=== PATIENT | male | born 1960 | race African-American/Black ===

== ENCOUNTER → 2016-07-20 | Outpatient (CLI) | payer MEDICARE, MEDICAID ==
[~2016-07-20] MED LIST: ACET300T4 PO; AMLO10TA2 PO; ATOR40TA16 PO; B-CO1CAP9 PO; BACL10TA PO; CHOL400D2 PO; FLUT50SP EACH NARE; HUMA100I3 SQ; HUMALOG SQ; HYDR-3801 PO; HYDR25TA35 PO; INSU-98; LANTUS2P SQ; LEVO25TA4 PO; LISI-515 PO; LISI20TA3 PO; MAGN500T5 PO; METO100T9 PO; MYCO500T PO; PANT20 PO; PRED-503 PO; PROT40TA PO; SODI650T PO; TACR1 PO; TACR5CAP PO; TRAM50TA PO; TYLETAB34 PO; VALG1TAB PO; ZOFR4TAB PO
[2016-07-20 08:24] LABS: AUTOMATED NEUTROPHIL # 6.3 TH/MM3 (1.8-7.7); BASOPHIL # 0.1 TH/MM3 (0-0.2); EOSINOPHIL # 0.1 TH/MM3 (0-0.4); EOSINOPHIL % 1.2 % (0.0-4.0); HEMATOCRIT 37.4 % (39.0-51.0); LYMPH % 15.6 % (9.0-44.0); LYMPHOCYTE # 1.4 TH/MM3 (1.0-4.8); MEAN CELL VOLUME 77.7 FL (80.0-100.0); MEAN CORPUSCULAR HEMOGLOBIN 24.8 PG (27.0-34.0); MONO % 10.9 % (0.0-8.0); NEUT % 71.3 % (16.0-70.0); PLATELET COUNT 184 TH/MM3 (150-450); RED BLOOD COUNT 4.81 MIL/MM3 (4.50-5.90); RED CELL DISTRIBUTION WIDTH 16.5 % (11.6-17.2); WHITE BLOOD COUNT 8.8 TH/MM3 (4.0-11.0)
[2016-07-20 08:28] LABS: HEMO FLAGS AUTO DIFF
[2016-07-20 09:00] LABS: PARATHYROID HORMONE INTACT 402.8 PG/ML (12.4-76.8)
[2016-07-20 09:06] LABS: ALKALINE PHOSPHATASE 120 U/L (45-117); ALT (GPT) 18 U/L (12-78); ANION GAP 10 MEQ/L (5-15); AST (GOT) 15 U/L (15-37); BICARBONATE 20.2 MEQ/L (21.0-32.0); BLOOD UREA NITROGEN 42 MG/DL (7-18); CHLORIDE 109 MEQ/L (98-107); GLOMERULAR FILTRATION RATE 31 ML/MIN (>89); GLUCOSE,FASTING 278 MG/DL (74-99); MAGNESIUM 1.8 MG/DL (1.5-2.5); POTASSIUM 4.3 MEQ/L (3.5-5.1); SODIUM (NA) 139 MEQ/L (136-145); TOTAL BILIRUBIN ADULT 0.4 MG/DL (0.2-1.0)
[2016-07-20 09:40] LABS: KERATOCYTES OCC (NORMAL)
[2016-07-20 09:41] LABS: SCAN/DIFF AUTO DIFF CONFIRMED
== END ==
LOC: CLAB 08:05
PROVIDERS: ATTEND Internal Medicine Nephrology
DX: E11.29 Type 2 diabetes mellitus with other diabetic kidney complication (principal); I12.9 Hypertensive chronic kidney disease with stage 1 through stage 4 chronic kidney disease, or unspecified chronic kidney disease; N25.81 Secondary hyperparathyroidism of renal origin; Z94.0 Kidney transplant status
CPT/HCPCS: 36415; 80053; 80197; 82306; 82465; 83735; 83970; 84478; 85025

== ENCOUNTER 2016-07-24 08:04 | Emergency (ER) | payer MEDICARE, MEDICAID ==
[~2016-07-24] VITALS: Ht 180.3 cm; Wt 76.0 kg
[~2016-07-24 08:04] MED LIST changes: -ACET300T4 PO; -BACL10TA PO; -CHOL400D2 PO; -FLUT50SP EACH NARE; -HYDR-3801 PO; -INSU-98; -LISI-515 PO; -LISI20TA3 PO; -PANT20 PO; -TACR5CAP PO; -TYLETAB34 PO
[2016-07-24 08:15] VITALS: BP 191/105; PULSE 66; RESP 20; TEMP 98; O2SAT 97
[2016-07-24] MEDS ORDERED: SODIUM CHLORIDE 0.9% FLUSH 5 ML FLUSH IVF PRN (08:30)
[2016-07-24] MEDS ORDERED: MORPHINE SULFATE 4 MG/ML INJ IV PUSH ONE (08:30)
[2016-07-24] MEDS ORDERED: DIATRIZOATE MEGLUM/DIATRIZOATE SOD 9 ML CUP ONE (08:34)
[2016-07-24 08:43] LABS: AUTOMATED NEUTROPHIL # 6.1 TH/MM3 (1.8-7.7); BASOPHIL # 0.1 TH/MM3 (0-0.2); BASOPHIL % 0.6 % (0.0-2.0); EOSINOPHIL # 0.1 TH/MM3 (0-0.4); EOSINOPHIL % 1.2 % (0.0-4.0); HEMATOCRIT 37.3 % (39.0-51.0); HEMO FLAGS DIFF FINAL; LYMPHOCYTE # 1.2 TH/MM3 (1.0-4.8); MEAN CELL VOLUME 77.5 FL (80.0-100.0); MEAN CORPUSCULAR HEMOGLOBIN 25.2 PG (27.0-34.0); MEAN CORPUSCULAR HGB CONC 32.5 % (32.0-36.0); MONO % 10.5 % (0.0-8.0); NEUT % 73.7 % (16.0-70.0); PLATELET COUNT 167 TH/MM3 (150-450); RED BLOOD COUNT 4.82 MIL/MM3 (4.50-5.90); RED CELL DISTRIBUTION WIDTH 16.2 % (11.6-17.2); WHITE BLOOD COUNT 8.3 TH/MM3 (4.0-11.0)
--- NOTE | 2016-07-24 08:43 | PD ---
HPI Chief Complaint: Abdominal Pain Time Seen by Provider: 08:12 Travel History International Travel<30 days: No Contact w/Intl Traveler<30days: No Traveled to known affect area: No History of Present Illness HPI 55-year-old male with history of renal failure status post transplant here with complaint of abdominal pain. Patient woke up this morning with pain in the right lower quadrant of the abdomen, points to his transplanted kidney. Patient states he has mild to moderate, achy, throbbing pain. Denies any associated fevers chills. He has been compliant with his antirejection medications which have not changed recently. 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 No associated nausea, vomiting. Denies abnormal bowel movements or urinary symptoms. PFSH Past Medical History Hx Anticoagulant Therapy: No Asthma: No Blood Disorders: No Anxiety: No Depression: No Heart Rhythm Problems: No Cancer: No Cardiac Catheterization: No Cardiovascular Problems: Yes High Cholesterol: Yes Chemotherapy: No Chest Pain: No Congestive Heart Failure: Yes COPD: No Cerebrovascular Accident: No Diabetes: Yes Patient Takes Glucophage: No Diminished Hearing: No Endocrine: No Genitourinary: No Hypertension: Yes Immune Disorder: No Musculoskeletal: No Neurologic: No Psychiatric: No Reproductive: No Respiratory: Yes Immunizations Current: No Radiation Therapy: No Renal Failure: Yes (KIDNEY TRANSPLANT) Sleep Apnea: No Past Surgical History Abdominal Surgery: Yes (ABD AND INGUINAL HERNIA REPAIR) Coronary Artery Bypass Graft: No Other Surgery: Yes (FISTULA LEFT UPPER ARM, kidney transplant ) Family History Family Myocardial Infarction: Yes (dad [place] 1994) Social History Alcohol Use: No Tobacco Use: No Substance Use: No Allergies-Medications (Allergen,Severity, Reaction): Coded Allergies: Banana (Verified Allergy, Severe, HIVES, 07/24/16) Beet (Verified Allergy, Severe, HIVES, 07/24/16) Pea (Verified Allergy, Severe, HIVES, 07/24/16) Latex (Verified Allergy, Unknown, 07/24/16) Uncoded Allergies: FRESH TOMATO (Allergy, Severe, 05/17/15) HIVES Reported Meds & Prescriptions Reported Meds & Active Scripts Active Zofran (Ondansetron HCl) 4 Mg Tab 4 Mg PO Q12HR PRN Protonix (Pantoprazole Sodium) 40 Mg Tab 40 Mg PO DAILY It is recommended that you do not take this medication for more than 2 weeks at a time. Metoprolol Succinate ER 24 HR (Metoprolol Succinate) 100 Mg Tab 100 Mg PO DAILY Levothyroxine (Levothyroxine Sodium) 25 Mcg Tab 25 Mcg PO DAILY Hydralazine (Hydralazine HCl) 25 Mg Tab 25 Mg PO TID Take with a meal Amlodipine (Amlodipine Besylate) 10 Mg Tab 10 Mg PO DAILY Atorvastatin (Atorvastatin Calcium) 40 Mg Tab 40 Mg PO EVERY OTHER DAY please check with your payroll technician about checking immunosuppresant levels when you go up to 40 mg daily. Tramadol (Tramadol HCl) 50 Mg Tab 50 Mg PO BID PRN Reported Lantus Inj (Insulin Glargine) 1,000 Unit/10 Ml Vial 26 Units SQ ONCE Magnesium Gluconate 500 Mg Tab 500 Mg PO DAILY Valganciclovir 450 Mg Tab 450 Mg PO DAILY Sodium Bicarbonate 650 Mg Tab 1,300 Mg PO BIDPC Prograf (Tacrolimus) 1 Mg Cap 1 Mg PO BID Mycophenolate (Mycophenolate Mofetil) 500 Mg Tab 500 Mg PO BID Deltasone (Prednisone) 20 Mg Tab 10 Mg PO DAILY Nephrocaps (B-Complex W/ C & Folic Acid) 1 Cap 1 Cap PO DAILY If on dialysis, take after treatment. Humalog Inj (Insulin Human Lispro) 1,000 Unit/10 Ml Vial Unknown Dose SQ TID Max dose at bedtime:( )units; sugars < 70,(0)units; sugars 150-199,(2)units; sugars 200-249,(4)units; sugars 250-299,(7)units; sugars 300-349,(10)units; sugars more than 349,(12)units. Review of Systems Except as stated in HPI: all other systems reviewed are Neg Physical Exam Narrative GENERAL: male in no acute distress SKIN: Warm and dry. HEAD: Normocephalic. EYES: No scleral icterus. No injection or drainage. ENT: Mucous membranes pink and moist. NECK: Supple CARDIOVASCULAR: Regular rate and rhythm. No murmur appreciated. RESPIRATORY: No accessory muscle use. Clear to auscultation. Breath sounds equal bilaterally. GASTROINTESTINAL: Abdomen soft, mild right lower quadrant tenderness to palpation over renal transplant without rebound or guarding. Nondistended. MUSCULOSKELETAL: Normal gait NEUROLOGICAL: Awake and alert. Normal speech. PSYCHIATRIC: Appropriate mood and affect; insight and judgment normal. Data Data Last Documented VS Vital Signs Date Time Temp Pulse Resp B/P Pulse Ox O2 Delivery O2 Flow Rate FiO2 07/24/16 12:30 60 18 172/100 97 Room Air 07/24/16 08:15 98.0 Orders Complete Blood Count With Diff (07/24/16 08:20) Comprehensive Metabolic Panel (07/24/16 08:20) Lipase (07/24/16 08:20) Urinalysis - C+S If Indicated (07/24/16 08:20) Iv Access Insert/Monitor (07/24/16 08:20) Ecg Monitoring (07/24/16 08:20) Oximetry (07/24/16 08:20) Morphine Inj (Morphine Inj) (07/24/16 08:30) Sodium Chloride 0.9% Flush (Ns Flush) (07/24/16 08:30) Oral Contrast - Adult (07/24/16 08:25) Diatrizoate Liq ( Gastroview Liq) (07/24/16 08:34) Ct Abd/Pel W/O Iv Contrast (07/24/16 09:09) Us Kidney / Transplant (07/24/16 ) Labs Laboratory Tests Test 07/24/16 08:30 White Blood Count 8.3 TH/MM3 Red Blood Count 4.82 MIL/MM3 Hemoglobin 12.1 GM/DL Hematocrit 37.3 % Mean Corpuscular Volume 77.5 FL Mean Corpuscular Hemoglobin 25.2 PG Mean Corpuscular Hemoglobin 32.5 % Concent Red Cell Distribution Width 16.2 % Platelet Count 167 TH/MM3 Mean Platelet Volume 8.7 FL Neutrophils (%) (Auto) 73.7 % Lymphocytes (%) (Auto) 14.0 % Monocytes (%) (Auto) 10.5 % Eosinophils (%) (Auto) 1.2 % Basophils (%) (Auto) 0.6 % Neutrophils # (Auto) 6.1 TH/MM3 Lymphocytes # (Auto) 1.2 TH/MM3 Monocytes # (Auto) 0.9 TH/MM3 Eosinophils # (Auto) 0.1 TH/MM3 Basophils # (Auto) 0.1 TH/MM3 CBC Comment DIFF FINAL Differential Comment Urine Color LIGHT-YELLOW Urine Turbidity CLEAR Urine pH 6.0 Urine Specific [place] 1.012 Urine Protein 300 mg/dL Urine Glucose (UA) TRACE mg/dL Urine Ketones NEG mg/dL Urine Occult Blood TRACE Urine Nitrite NEG Urine Bilirubin NEG Urine Urobilinogen LESS THAN 2.0 MG/DL Urine Leukocyte Esterase NEG Urine RBC 2 /hpf Urine WBC LESS THAN 1 /hpf Microscopic Urinalysis Comment CULT NOT INDICATED Sodium Level 138 MEQ/L Potassium Level 4.2 MEQ/L Chloride Level 111 MEQ/L Carbon Dioxide Level 18.8 MEQ/L Anion Gap 8 MEQ/L Blood Urea Nitrogen 33 MG/DL Creatinine 2.26 MG/DL Estimat Glomerular Filtration 37 ML/MIN Rate Random Glucose 201 MG/DL Calcium Level 7.6 MG/DL Total Bilirubin 0.3 MG/DL Aspartate Amino Transf 13 U/L (AST/SGOT) Alanine Aminotransferase 16 U/L (ALT/SGPT) Alkaline Phosphatase 113 U/L Total Protein 6.2 GM/DL Albumin 2.8 GM/DL Lipase 93 U/L [facility] Medical Decision Making Medical Screen Exam Complete: Yes Emergency Medical Condition: Yes Medical Record Reviewed: Yes Differential Diagnosis 55-year-old male status post renal transplant here with right lower quadrant abdominal pain upon waking this morning. Differential includes appendicitis, colitis, graft failure, acute rejection, mesenteric adenitis, and less likely hepatobiliary pathology, bowel obstruction. Narrative Course Patient placed on monitor, IV established and blood obtained. Given morphine for pain. CBC, CMP, lipase, urinalysis obtained and notable for BUN 33, creatinine 2.26. This is his baseline renal function. CT abdomen and pelvis showed [place] kidneys atrophic with transplant kidney in the right lower quadrant. Ultrasound recommended to exclude possibility of hydronephrosis. Ultrasound of the kidney showed mild hydronephrosis. I spoke with his payroll technician, Dr. Pereira, who agrees with disposition to home. Maintain good hydration and follow-up with him in clinic. Diagnosis Primary Impression: Abdominal pain Qualified Code: R10.31 - Right lower quadrant abdominal pain Referrals: Health Care Consultant as needed Additional Instructions: Follow-up with Dr. Pereira as instructed. Return to the ER for the warning signs discussed. Med/Other Pt SpecificInfo: No Change to Meds Disposition: 01 DISCHARGE HOME Condition: Stable Cecile Bernstein MD Jul 24, 2016 08:43
[2016-07-24 08:45] LABS: BLOOD, URINE TRACE (NEG); COMMENT (UR) CULT NOT INDICATED; CULTURE IF INDICATED CULT NOT INDICATED; GLUCOSE,URINE TRACE mg/dL (NEG); KETONE, URINE NEG (NEG); NITRITE,URINE NEG (NEG); URINE COLOR LIGHT-YELLOW (YELLW/STRAW)
[2016-07-24 09:03] LABS: ANION GAP 8 MEQ/L (5-15); BICARBONATE 18.8 MEQ/L (21.0-32.0); BLOOD UREA NITROGEN 33 MG/DL (7-18); CHLORIDE 111 MEQ/L (98-107); GLOMERULAR FILTRATION RATE 37 ML/MIN (>89); POTASSIUM 4.2 MEQ/L (3.5-5.1); SODIUM (NA) 138 MEQ/L (136-145)
[2016-07-24 09:06] LABS: ALKALINE PHOSPHATASE 113 U/L (45-117); ALT (GPT) 16 U/L (12-78); AST (GOT) 13 U/L (15-37); TOTAL BILIRUBIN ADULT 0.3 MG/DL (0.2-1.0)
--- NOTE | 2016-07-24 10:20 | RADRPT ---
EXAM DATE/TIME: 07/24/2016 09:59 [facility] COMPARISON: No previous studies available for comparison. INDICATIONS : Pain. ORAL CONTRAST: Prescribed oral contrast ingested. RADIATION DOSE: 6.32 CTDIvol (mGy) MEDICAL HISTORY : Hypertension. Congestive heart failure. Diabetes mellitus type 2. SURGICAL HISTORY : Kidney transplant ENCOUNTER: Initial ACUITY: 1 day PAIN SCALE: 5/10 LOCATION: Right lower quadrant TECHNIQUE: Volumetric scanning of the abdomen and pelvis was performed. Using automated exposure control and adjustment of the mA and/or kV according to patient size, radiation dose was kept as low as reasonably achievable to obtain optimal diagnostic quality images. FINDINGS: LOWER LUNGS: The visualized lower lungs are clear. LIVER: Homogeneous density without lesion. There is no dilation of the biliary tree. No calcifi ed gallstones. Gallbladder cys luminal structure without wall thickening SPLEEN: Normal size without lesion. PANCREAS: Within normal limits. KIDNEYS: Bilateral [place] kidneys are atrophic. There is a transplant kidney in the right pelvis without evidence of stones or mass possibility of hydronephrosis not excludable. Ultrasound may be of value ADRENAL GLANDS: Within normal limits. VASCULAR: There is no aortic aneurysm. BOWEL/MESENTERY: The stomach, small bowel, and colon demonstrate no acute abnormality. There is no free intraperitoneal air or fluid. ABDOMINAL WALL: Within normal limits. RETROPERITONEUM: There is no lymphadenopathy. BLADDER: No wall thickening or mass. REPRODUCTIVE: Within normal limits. INGUINAL: There is no lymphadenopathy or hernia. MUSCULOSKELETAL: Within normal limits for patient age. CONCLUSION: The [place] kidneys are atrophic with a transplant kidney in the right lower quadrant, pelvis. Ultrasound recommended to exclude the possibility of hydronephrosis Ever Evans MD on July 24, 2016 at 10:14 Board Certified Radiologist. This report was verified electronically.
[2016-07-24 10:30] VITALS: BP 171/94; PULSE 63; RESP 17; O2SAT 96
--- NOTE | 2016-07-24 12:29 | RADRPT ---
EXAM DATE/TIME: 07/24/2016 11:24 [facility] COMPARISON: US KIDNEY / TRANSPLANT, March 18, 2016, 16:09. INDICATIONS : Flank pain. MEDICAL HISTORY : Hypercholesterolemia. Hypertension. Congestive heart failure. Renal failure. SURGICAL HISTORY : Inguinal hernia repair. Transplant kidney. AV fistula left arm. ENCOUNTER: Subsequent ACUITY: 1 day PAIN SCORE: 5/10 LOCATION: Right lower quadrant MEASUREMENTS: TRANSPLANT KIDNEY: 12.0 x 6.0 x 6.0 cm LOCATION: Right lower quadrant. ARCUATE ARTERIES RESISTIVE INDEX: Upper - 0.82 Mid - 0.77 Lower - 0.78 MAIN RENAL ARTERY VELOCITY: (cm/sec): 57.2 cm/sec MAIN RENAL VEIN: Patent EXTERNAL ILIAC ARTERY VELOCITY (cm/sec): 67.6 cm/sec * NORMAL DOPPLER FINDINGS [place] arteries - RI = 0.6 - 0.8 Renal artery = under 200 cm/sec Renal vein = May be monophasic with continuous flow or demonstrate some pulsatility with cardiac cycl e FINDINGS: TRANSPLANT KIDNEY: Normal cortical thickness and echotexture. No, stone, or mass. No peritransplant fluid collection. Mild hydronephrosis URINARY BLADDER: Within normal limits given the degree of distension. CONCLUSION: Mild hydronephrosis otherwise negative Ever Evans MD on July 24, 2016 at 12:26 Board Certified Radiologist. This report was verified electronically.
[2016-07-24 12:30] VITALS: BP 172/100; PULSE 60; RESP 18; O2SAT 97
[2016-07-24 13:05] VITALS: BP 176/100
[2016-09-02] MEDS ORDERED: HUMALOG SQ (09:17)
[2016-09-02] MEDS ORDERED: ATOR40TA16 PO (09:17)
[2016-09-02] MEDS ORDERED: LANTUS2P SQ (09:17)
[2016-09-02] MEDS ORDERED: METO100T9 PO (09:17)
[2016-09-02] MEDS ORDERED: PROT40TA PO (09:17)
[2016-09-02] MEDS ORDERED: HYDR25TA35 PO (09:17)
[2016-09-02] MEDS ORDERED: AMLO10TA2 PO (09:17)
[2016-09-02] MEDS ORDERED: LEVO25TA4 PO (09:17)
[2016-09-02] MEDS ORDERED: ZOFR4TAB PO (09:18)
[2016-11-10] MEDS ORDERED: HUMALOG SQ (11:03)
[2016-11-10] MEDS ORDERED: INSU-98 (11:14)
[2016-11-19] MEDS ORDERED: LANTUS2P SQ (09:03)
[2016-11-19] MEDS ORDERED: METO100T9 PO (09:03)
[2016-11-19] MEDS ORDERED: ATOR40TA16 PO (09:03)
[2016-11-19] MEDS ORDERED: LEVO25TA4 PO (09:03)
[2016-11-19] MEDS ORDERED: PANT20 PO (09:03)
[2016-11-19] MEDS ORDERED: LISI20TA3 PO (09:03)
[2016-11-19] MEDS ORDERED: AMLO10TA2 PO (09:03)
[2016-11-19] MEDS ORDERED: HYDR-3801 PO (09:03)
== END 2016-07-24 14:13 | disposition home or self-care (01) ==
LOC: NEPE 08:04
DX: R10.31 Right lower quadrant pain (principal); I50.9 Heart failure, unspecified; E11.9 Type 2 diabetes mellitus without complications; I10 Essential (primary) hypertension; Z79.4 Long term (current) use of insulin; Z94.0 Kidney transplant status
CPT/HCPCS: 74176; 76776; 80053; 81001; 83690; 85025; 99284; Q9963

== ENCOUNTER → 2016-08-11 | Outpatient (CLI) | payer MEDICARE, MEDICAID ==
[~2016-08-11] MED LIST changes: +ACET300T4 PO; +BACL10TA PO; +CHOL400D2 PO; +FLUT50SP EACH NARE; -HUMA100I3 SQ; +HYDR-3801 PO; +INSU-98; +LISI-515 PO; +LISI20TA3 PO; +PANT20 PO; +TACR5CAP PO; +TYLETAB34 PO
[2016-08-11 08:37] LABS: AUTOMATED NEUTROPHIL # 4.4 TH/MM3 (1.8-7.7); BASOPHIL # 0.1 TH/MM3 (0-0.2); BASOPHIL % 1.3 % (0.0-2.0); EOSINOPHIL # 0.1 TH/MM3 (0-0.4); EOSINOPHIL % 1.7 % (0.0-4.0); HEMATOCRIT 37.6 % (39.0-51.0); HEMO FLAGS DIFF FINAL; LYMPH % 16.6 % (9.0-44.0); LYMPHOCYTE # 1.1 TH/MM3 (1.0-4.8); MEAN CELL VOLUME 77.3 FL (80.0-100.0); MEAN CORPUSCULAR HEMOGLOBIN 25.5 PG (27.0-34.0); MEAN CORPUSCULAR HGB CONC 32.9 % (32.0-36.0); MONO % 11.7 % (0.0-8.0); NEUT % 68.7 % (16.0-70.0); PLATELET COUNT 190 TH/MM3 (150-450); RED BLOOD COUNT 4.87 MIL/MM3 (4.50-5.90); RED CELL DISTRIBUTION WIDTH 16.8 % (11.6-17.2); WHITE BLOOD COUNT 6.4 TH/MM3 (4.0-11.0)
[2016-08-11 08:45] LABS: APTT (PATIENT) 29.2 SEC (24.3-30.1); PROTHROMBIN TIME - PATIENT 10.9 SEC (9.8-11.6)
[2016-08-11 09:07] LABS: PARATHYROID HORMONE INTACT 390.3 PG/ML (12.4-76.8)
[2016-08-11 09:10] LABS: ALKALINE PHOSPHATASE 112 U/L (45-117); ALT (GPT) 21 U/L (12-78); ANION GAP 9 MEQ/L (5-15); AST (GOT) 15 U/L (15-37); BICARBONATE 19.3 MEQ/L (21.0-32.0); BLOOD UREA NITROGEN 39 MG/DL (7-18); CHLORIDE 114 MEQ/L (98-107); GLOMERULAR FILTRATION RATE 36 ML/MIN (>89); GLUCOSE,FASTING 175 MG/DL (74-99); HDL CHOLESTEROL 89.9 MG/DL (40.0-60.0); LDL CHOLESTEROL 114 MG/DL (0-99); MAGNESIUM 1.6 MG/DL (1.5-2.5); POTASSIUM 4.8 MEQ/L (3.5-5.1); SODIUM (NA) 142 MEQ/L (136-145); TOTAL BILIRUBIN ADULT 0.3 MG/DL (0.2-1.0)
[2016-08-11 15:53] LABS: HEMOGLOBIN A1a 1.1 %; HEMOGLOBIN A1b 0.6 %; HEMOGLOBIN Ao 55.7 %; HEMOGLOBIN F 1.6 %; HEMOGLOBIN LA1C 1.8 %; HEMOGLOBIN P3 5.2 %
== END ==
LOC: CLAB 08:08
PROVIDERS: ATTEND Internal Medicine Nephrology
DX: I12.9 Hypertensive chronic kidney disease with stage 1 through stage 4 chronic kidney disease, or unspecified chronic kidney disease (principal); N18.3 Chronic kidney disease, stage 3 (moderate); Z94.0 Kidney transplant status; E11.29 Type 2 diabetes mellitus with other diabetic kidney complication
CPT/HCPCS: 36415; 80053; 80061; 80197; 82306; 83036; 83735; 83970; 85025; 85610; 85730

== ENCOUNTER 2016-08-13 15:05 | Emergency (ER) | payer MEDICARE, MEDICAID ==
[~2016-08-13] VITALS: Ht 180.3 cm; Wt 80.0 kg
[~2016-08-13 15:05] MED LIST changes: -ACET300T4 PO; -BACL10TA PO; -CHOL400D2 PO; -FLUT50SP EACH NARE; -HYDR-3801 PO; -INSU-98; -LISI-515 PO; -LISI20TA3 PO; -PANT20 PO; -TACR5CAP PO; -TYLETAB34 PO
[2016-08-13 15:07] VITALS: BP 156/91; PULSE 80; RESP 14; TEMP 98.1; O2SAT 93
[2016-08-13] MEDS ORDERED: TYLETAB34 PO (15:56)
[2016-08-13] MEDS ORDERED: BACL10TA PO (15:56)
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
[2016-09-02] MEDS ORDERED: PROT40TA PO (09:17)
[2016-09-02] MEDS ORDERED: ATOR40TA16 PO (09:17)
[2016-09-02] MEDS ORDERED: HUMALOG SQ (09:17)
[2016-09-02] MEDS ORDERED: HYDR25TA35 PO (09:17)
[2016-09-02] MEDS ORDERED: AMLO10TA2 PO (09:17)
[2016-09-02] MEDS ORDERED: METO100T9 PO (09:17)
[2016-09-02] MEDS ORDERED: LANTUS2P SQ (09:17)
[2016-09-02] MEDS ORDERED: LEVO25TA4 PO (09:17)
[2016-09-02] MEDS ORDERED: ZOFR4TAB PO (09:18)
[2016-11-10] MEDS ORDERED: HUMALOG SQ (11:03)
[2016-11-10] MEDS ORDERED: INSU-98 (11:14)
[2016-11-19] MEDS ORDERED: AMLO10TA2 PO (09:03)
[2016-11-19] MEDS ORDERED: LEVO25TA4 PO (09:03)
[2016-11-19] MEDS ORDERED: ATOR40TA16 PO (09:03)
[2016-11-19] MEDS ORDERED: LISI20TA3 PO (09:03)
[2016-11-19] MEDS ORDERED: METO100T9 PO (09:03)
[2016-11-19] MEDS ORDERED: PANT20 PO (09:03)
[2016-11-19] MEDS ORDERED: HYDR-3801 PO (09:03)
[2016-11-19] MEDS ORDERED: LANTUS2P SQ (09:03)
[2016-12-24] MEDS ORDERED: INSU-98 (13:55)
[2016-12-24] MEDS ORDERED: LANTUS2P SQ (15:56)
== END 2016-08-13 16:20 | disposition home or self-care (01) ==
LOC: NEPB 15:05
DX: M54.17 Radiculopathy, lumbosacral region (principal)
CPT/HCPCS: 99283

== ENCOUNTER → 2016-08-18 | Outpatient (CLI) | payer MEDICARE, MEDICAID ==
[~2016-08-18] MED LIST changes: +ACET300T4 PO; +BACL10TA PO; +CHOL400D2 PO; +FLUT50SP EACH NARE; +HYDR-3801 PO; +INSU-98; +LISI-515 PO; +LISI20TA3 PO; +PANT20 PO; +TACR5CAP PO; +TYLETAB34 PO
[2016-08-18 09:12] LABS: URINE TOTAL PROTEIN TIMED 210.4 MG/DL
== END ==
LOC: CLAB 08:10
PROVIDERS: ATTEND Internal Medicine Nephrology
DX: I12.9 Hypertensive chronic kidney disease with stage 1 through stage 4 chronic kidney disease, or unspecified chronic kidney disease (principal); N18.3 Chronic kidney disease, stage 3 (moderate); E11.22 Type 2 diabetes mellitus with diabetic chronic kidney disease; Z94.0 Kidney transplant status
CPT/HCPCS: 84157

== ENCOUNTER → 2016-09-21 | Outpatient (CLI) | payer MEDICARE, MEDICAID ==
[2016-09-21 09:03] LABS: AUTOMATED NEUTROPHIL # 4.6 TH/MM3 (1.8-7.7); BASOPHIL # 0.1 TH/MM3 (0-0.2); BASOPHIL % 0.9 % (0.0-2.0); EOSINOPHIL # 0.1 TH/MM3 (0-0.4); EOSINOPHIL % 1.3 % (0.0-4.0); HEMATOCRIT 36.7 % (39.0-51.0); LYMPH % 19.4 % (9.0-44.0); LYMPHOCYTE # 1.4 TH/MM3 (1.0-4.8); MEAN CELL VOLUME 77.5 FL (80.0-100.0); MEAN CORPUSCULAR HEMOGLOBIN 23.9 PG (27.0-34.0); MEAN CORPUSCULAR HGB CONC 30.8 % (32.0-36.0); MONO % 13.7 % (0.0-8.0); NEUT % 64.7 % (16.0-70.0); PLATELET COUNT 177 TH/MM3 (150-450); RED BLOOD COUNT 4.74 MIL/MM3 (4.50-5.90); RED CELL DISTRIBUTION WIDTH 16.1 % (11.6-17.2); WHITE BLOOD COUNT 7.1 TH/MM3 (4.0-11.0)
[2016-09-21 09:06] LABS: HEMO FLAGS AUTO DIFF
[2016-09-21 09:09] LABS: APTT (PATIENT) 30.4 SEC (24.3-30.1); PROTHROMBIN TIME - PATIENT 11.1 SEC (9.8-11.6)
[2016-09-21 09:23] LABS: BICARBONATE 22.8 MEQ/L (21.0-32.0); POTASSIUM 5.1 MEQ/L (3.5-5.1)
[2016-09-21 09:48] LABS: KERATOCYTES OCC (NORMAL); OVALOCYTES 1+ (NORMAL)
[2016-09-21 09:49] LABS: HELMET CELLS OCC (NORMAL); PLATELET ESTIMATE SMEAR NORMAL (NORMAL); PLATELET MORPHOLOGY NORMAL (NORMAL); SCAN/DIFF AUTO DIFF CONFIRMED
== END ==
LOC: CLAB 08:15
PROVIDERS: ATTEND Internal Medicine Nephrology
DX: N17.0 Acute kidney failure with tubular necrosis (principal); Z94.0 Kidney transplant status
CPT/HCPCS: 36415; 80048; 85025; 85610; 85730

== ENCOUNTER 2016-09-23 06:41 | Day surgery (SDC) | payer MEDICARE, MEDICAID ==
[~2016-09-23] VITALS: Ht 181.6 cm; Wt 75.9 kg
[2016-09-23] VITALS (9 sets, daily range): BP systolic 136–165; BP diastolic 70–99; PULSE 63–69; RESP 17–20; TEMP 97.5–98.2; O2SAT 95–98
[~2016-09-23 06:41] MED LIST changes: -ACET300T4 PO; -CHOL400D2 PO; -FLUT50SP EACH NARE; -HYDR-3801 PO; -INSU-98; -LISI-515 PO; -LISI20TA3 PO; -PANT20 PO; -TACR5CAP PO
[2016-09-23] MEDS ORDERED: LISI-515 PO (07:38)
[2016-09-23] MEDS ORDERED: CHOL400D2 PO (07:39)
[2016-09-23] MEDS ORDERED: FLUT50SP EACH NARE (07:44)
[2016-09-23] MEDS ORDERED: LIDOCAINE 1%/EPINEPHrine 1:100,000 SOLN 20 ML VIAL ONE (07:51)
[2016-09-23] MEDS ORDERED: fentaNYL CITRATE 250 MCG/5 ML AMP ONE (08:29)
[2016-09-23] MEDS ORDERED: MIDAZOLAM HCL 5 MG/5 ML VIAL ONE (08:29)
[2016-09-23] MEDS ORDERED: THROMBIN (TOPICAL) 5,000 UNIT VIAL ONE (08:48)
[2016-09-23] MEDS ORDERED: SODIUM CHLOR 0.9% 1000 ML IV SCH (09:00)
[2016-09-23] MEDS ORDERED: ONDANSETRON HCL 4 MG/2 ML VIAL ONE (09:15)
--- NOTE | 2016-09-23 09:42 | PD.RAD ---
Post CT Procedure Prog Note Pre Procedure Diagnosis: (1) CKD (chronic kidney disease) stage 3, GFR 30-59 ml/min Post Procedure Diagnosis: (1) CKD (chronic kidney disease) stage 3, GFR 30-59 ml/min Procedure Date: Sep 23, 2016 Supervising Radiologist: Rikki Hernandez Proceduralist/Assist: RT Virgilio(R)(CT) Anesthesia: Conscious Sedation Plan of Activity Patient to Unit: ROPU Patient Condition: Good See PACS Report for procedural detail/treatment Biopsy Side: Right Biopsy Procedure: Kidney Specimen: Core Biopsy Rikki Hernandez MD Sep 23, 2016 09:41
--- NOTE | 2016-09-23 10:40 | RADRPT ---
EXAM DATE/TIME: 09/23/2016 08:38 [facility] COMPARISON: No previous studies available for comparison. INDICATIONS : Right renal transplant failure SEDATION TIME: 30 minutes BIOPSY SITE: Right transplant kidney MEDICATION(S): 1.) 2.5 mg midazolam (Versed) IV 2.) 125 mcg fentanyl (Sublimaze) IV DEVICE(S): 1.) 15 gauge introducer 2.) 18 gauge Temno core biopsy needle MEDICAL HISTORY : Hypertension. Diabetes mellitus type 1. SURGICAL HISTORY : renal transplant ENCOUNTER: Initial ACUITY: 1 day PAIN SCORE: 0/10 LOCATION: Right lower quadrant A total of three core specimen(s) were obtained and sent to the laboratory for pathologic evaluation. PROCEDURE: 1. CT guided renal biopsy. 2. Conscious sedation with continuous EKG and oximetry monitoring. 3. EKG and oximetry remained stable throughout the procedure. Prior to the procedure informed consent was obtained. Any appropriate prior imaging studies were rev iewed. Using automated exposure control and adjustment of the mA and/or kV according to patient size, radiat ion dose was kept as low as reasonably achievable to obtain optimal diagnostic quality images. The site was prepped in a sterile fashion. Full sterile technique was used, including cap, mask, thuy rile gloves and gown and a large sterile sheet. Hand hygiene and 2% chlorhexidine and/or betadine/al cohol prep was utilized per protocol for cutaneous antisepsis. The skin and subcutaneous tissues wer e infiltrated with local anesthetic solution. With CT guidance the previously identified target was localized. Biopsy was performed using the presc ribed needle as above. Adequate hemostasis was obtained with compression at the puncture site. Follow-up CT scan reveals no hemorrhage. The patient tolerated the procedure well and there were no complications. The patient was returned to the Radiology Outpatient Unit in stable condition. CONCLUSION: Uncomplicated CT guided biopsy. Rikki Hernandez MD on September 23, 2016 at 10:38 Board Certified Radiologist. This report was verified electronically.
[2016-09-23] MEDS ORDERED: ACETAMINOPHEN/HYDROcodone 325 MG/5 MG TAB PO ONE ×2 (11:00→12:00)
[2016-09-23 11:06] LABS: AUTOMATED NEUTROPHIL # 3.1 TH/MM3 (1.8-7.7); BASOPHIL # 0.1 TH/MM3 (0-0.2); BASOPHIL % 1.2 % (0.0-2.0); EOSINOPHIL # 0.1 TH/MM3 (0-0.4); EOSINOPHIL % 1.7 % (0.0-4.0); HEMATOCRIT 24.7 % (39.0-51.0); LYMPH % 16.6 % (9.0-44.0); LYMPHOCYTE # 0.8 TH/MM3 (1.0-4.8); MEAN CELL VOLUME 78.6 FL (80.0-100.0); MEAN CORPUSCULAR HEMOGLOBIN 24.1 PG (27.0-34.0); MEAN CORPUSCULAR HGB CONC 30.7 % (32.0-36.0); MONO % 16.6 % (0.0-8.0); NEUT % 63.9 % (16.0-70.0); PLATELET COUNT 98 TH/MM3 (150-450); RED BLOOD COUNT 3.15 MIL/MM3 (4.50-5.90); RED CELL DISTRIBUTION WIDTH 16.3 % (11.6-17.2); WHITE BLOOD COUNT 4.9 TH/MM3 (4.0-11.0)
[2016-09-23 11:07] LABS: HEMO FLAGS AUTO DIFF
[2016-09-23] MEDS ORDERED: ACETAMINOPHEN 500 MG CPLT PO ONE (11:15)
[2016-09-23 11:39] LABS: OVALOCYTES 1+ (NORMAL); PLATELET ESTIMATE SMEAR LOW (NORMAL); PLATELET MORPHOLOGY NORMAL (NORMAL)
[2016-09-23 11:40] LABS: SCAN/DIFF AUTO DIFF CONFIRMED
[2016-09-23 13:22] LABS: HEMATOCRIT 33.1 % (39.0-51.0); MEAN CELL VOLUME 77.6 FL (80.0-100.0); MEAN CORPUSCULAR HEMOGLOBIN 23.7 PG (27.0-34.0); MEAN CORPUSCULAR HGB CONC 30.6 % (32.0-36.0); PLATELET COUNT 148 TH/MM3 (150-450); RED BLOOD COUNT 4.27 MIL/MM3 (4.50-5.90); RED CELL DISTRIBUTION WIDTH 16.4 % (11.6-17.2)
[2016-09-23 13:24] LABS: REVIEW FLAG FINAL
[2016-11-10] MEDS ORDERED: HUMALOG SQ (11:03)
[2016-11-10] MEDS ORDERED: INSU-98 (11:14)
[2016-11-19] MEDS ORDERED: PANT20 PO (09:03)
[2016-11-19] MEDS ORDERED: METO100T9 PO (09:03)
[2016-11-19] MEDS ORDERED: LISI20TA3 PO (09:03)
[2016-11-19] MEDS ORDERED: LANTUS2P SQ (09:03)
[2016-11-19] MEDS ORDERED: AMLO10TA2 PO (09:03)
[2016-11-19] MEDS ORDERED: HYDR-3801 PO (09:03)
[2016-11-19] MEDS ORDERED: LEVO25TA4 PO (09:03)
[2016-11-19] MEDS ORDERED: ATOR40TA16 PO (09:03)
[2016-12-24] MEDS ORDERED: INSU-98 (13:55)
[2016-12-24] MEDS ORDERED: LANTUS2P SQ (15:56)
[2016-12-25] MEDS ORDERED: HUMALOG SQ (16:57)
== END 2016-09-23 15:00 | disposition home or self-care (01) ==
LOC: HRAD 06:41 → HRIP 06:49 → HRAD 15:00
PROVIDERS: ATTEND Internal Medicine Nephrology
DX: T86.12 Kidney transplant failure (principal); N18.3 Chronic kidney disease, stage 3 (moderate); I12.9 Hypertensive chronic kidney disease with stage 1 through stage 4 chronic kidney disease, or unspecified chronic kidney disease; E11.21 Type 2 diabetes mellitus with diabetic nephropathy; Z79.4 Long term (current) use of insulin
CPT/HCPCS: 50200; 77012; 85025; 85027; 88305; 88313; 88342; 88346; 88348; 88350; J2250; J2405; J3010

== ENCOUNTER → 2016-10-14 | Outpatient (CLI) | payer MEDICARE, MEDICAID ==
[~2016-10-14] MED LIST changes: +ACET300T4 PO; +CHOL400D2 PO; +FLUT50SP EACH NARE; +HUMA100I3 SQ; +HYDR-3801 PO; +INSU-98; +LISI-515 PO; +LISI20TA3 PO; +PANT20 PO; +TACR5CAP PO; -TRAM50TA PO
[2016-10-14 08:48] LABS: AUTOMATED NEUTROPHIL # 4.4 TH/MM3 (1.8-7.7); BASOPHIL # 0.1 TH/MM3 (0-0.2); BASOPHIL % 0.9 % (0.0-2.0); EOSINOPHIL # 0.1 TH/MM3 (0-0.4); EOSINOPHIL % 1.6 % (0.0-4.0); HEMATOCRIT 33.8 % (39.0-51.0); LYMPH % 20.2 % (9.0-44.0); LYMPHOCYTE # 1.4 TH/MM3 (1.0-4.8); MEAN CELL VOLUME 77.5 FL (80.0-100.0); MEAN CORPUSCULAR HEMOGLOBIN 24.1 PG (27.0-34.0); MEAN CORPUSCULAR HGB CONC 31.2 % (32.0-36.0); NEUT % 65.3 % (16.0-70.0); PLATELET COUNT 184 TH/MM3 (150-450); RED BLOOD COUNT 4.36 MIL/MM3 (4.50-5.90); RED CELL DISTRIBUTION WIDTH 16.7 % (11.6-17.2); WHITE BLOOD COUNT 6.8 TH/MM3 (4.0-11.0)
[2016-10-14 08:50] LABS: HEMO FLAGS AUTO DIFF
[2016-10-14 08:51] LABS: APTT (PATIENT) 30.3 SEC (24.3-30.1); PROTHROMBIN TIME - PATIENT 10.8 SEC (9.8-11.6)
[2016-10-14 09:25] LABS: PARATHYROID HORMONE INTACT 434.1 PG/ML (12.4-76.8)
[2016-10-14 09:33] LABS: ALKALINE PHOSPHATASE 103 U/L (45-117); ALT (GPT) 17 U/L (12-78); ANION GAP 10 MEQ/L (5-15); AST (GOT) 13 U/L (15-37); BICARBONATE 17.5 MEQ/L (21.0-32.0); BLOOD UREA NITROGEN 42 MG/DL (7-18); CHLORIDE 113 MEQ/L (98-107); GLOMERULAR FILTRATION RATE 30 ML/MIN (>89); GLUCOSE,FASTING 222 MG/DL (74-99); HDL CHOLESTEROL 63.2 MG/DL (40.0-60.0); LDL CHOLESTEROL 112 MG/DL (0-99); MAGNESIUM 2.1 MG/DL (1.5-2.5); POTASSIUM 5.3 MEQ/L (3.5-5.1); SODIUM (NA) 140 MEQ/L (136-145); TOTAL BILIRUBIN ADULT 0.2 MG/DL (0.2-1.0)
[2016-10-14 09:37] LABS: HELMET CELLS OCC (NORMAL); KERATOCYTES OCC (NORMAL); PLATELET ESTIMATE SMEAR NORMAL (NORMAL); PLATELET MORPHOLOGY NORMAL (NORMAL)
[2016-10-14 09:38] LABS: SCAN/DIFF AUTO DIFF CONFIRMED
== END ==
LOC: CLAB 08:12
PROVIDERS: ATTEND Internal Medicine Nephrology
DX: E55.9 Vitamin D deficiency, unspecified (principal); N18.9 Chronic kidney disease, unspecified; E11.22 Type 2 diabetes mellitus with diabetic chronic kidney disease; I12.9 Hypertensive chronic kidney disease with stage 1 through stage 4 chronic kidney disease, or unspecified chronic kidney disease; N17.0 Acute kidney failure with tubular necrosis; Z94.0 Kidney transplant status
CPT/HCPCS: 36415; 80053; 80061; 80197; 82043; 82306; 83735; 83970; 85025; 85610; 85730

== ENCOUNTER 2016-10-31 10:18 | Observation (INO) | payer MEDICARE, MEDICAID ==
[~2016-10-31] VITALS: Ht 180.3 cm; Wt 76.0 kg
[~2016-10-31 10:18] MED LIST changes: -ACET300T4 PO; -HUMA100I3 SQ; -HYDR-3801 PO; -INSU-98; -LISI20TA3 PO; -PANT20 PO; -TACR5CAP PO
[2016-10-31 10:21] VITALS: BP 172/102; PULSE 70; RESP 24; TEMP 97.9; O2SAT 97
[2016-10-31] MEDS ORDERED: SODIUM CHLORIDE 0.9% FLUSH 10 ML FLUSH IVF PRN (10:45)
[2016-10-31] MEDS ORDERED: MORPHINE SULFATE 4 MG/ML INJ IV PUSH ONE (10:45)
[2016-10-31 10:54] LABS: AUTOMATED NEUTROPHIL # 7.7 TH/MM3 (1.8-7.7); BASOPHIL # 0.1 TH/MM3 (0-0.2); BASOPHIL % 0.8 % (0.0-2.0); EOSINOPHIL # 0.1 TH/MM3 (0-0.4); EOSINOPHIL % 1.2 % (0.0-4.0); HEMATOCRIT 35.5 % (39.0-51.0); LYMPH % 10.6 % (9.0-44.0); LYMPHOCYTE # 1.1 TH/MM3 (1.0-4.8); MEAN CELL VOLUME 77.6 FL (80.0-100.0); MEAN CORPUSCULAR HEMOGLOBIN 24.3 PG (27.0-34.0); MEAN CORPUSCULAR HGB CONC 31.4 % (32.0-36.0); MONO % 10.9 % (0.0-8.0); NEUT % 76.5 % (16.0-70.0); PLATELET COUNT 174 TH/MM3 (150-450); RED BLOOD COUNT 4.58 MIL/MM3 (4.50-5.90); RED CELL DISTRIBUTION WIDTH 16.5 % (11.6-17.2); WHITE BLOOD COUNT 10.1 TH/MM3 (4.0-11.0)
[2016-10-31 10:56] LABS: HEMO FLAGS AUTO DIFF
[2016-10-31 11:01] LABS: APTT (PATIENT) 29.6 SEC (24.3-30.1); PROTHROMBIN TIME - PATIENT 10.7 SEC (9.8-11.6)
[2016-10-31 11:10] LABS: ALT (GPT) 16 U/L (12-78); ANION GAP 7 MEQ/L (5-15); AST (GOT) 15 U/L (15-37); BICARBONATE 18.7 MEQ/L (21.0-32.0); BLOOD UREA NITROGEN 37 MG/DL (7-18); CHLORIDE 114 MEQ/L (98-107); GLOMERULAR FILTRATION RATE 36 ML/MIN (>89); MAGNESIUM 1.8 MG/DL (1.5-2.5); POTASSIUM 5.3 MEQ/L (3.5-5.1); SODIUM (NA) 140 MEQ/L (136-145)
[2016-10-31 11:11] LABS: ALKALINE PHOSPHATASE 102 U/L (45-117); CREATINE KINASE 142 U/L (39-308); TOTAL BILIRUBIN ADULT 0.4 MG/DL (0.2-1.0)
--- NOTE | 2016-10-31 11:18 | RADRPT ---
EXAM DATE/TIME: 10/31/2016 10:57 [facility] COMPARISON: CHEST SINGLE AP, March 18, 2016, 9:03. INDICATIONS : Pain without trauma. MEDICAL HISTORY : Hypertension. Diabetes mellitus type II. Congestive heart failure. SURGICAL HISTORY : None. ENCOUNTER: Initial ACUITY: 2 days PAIN SCORE: 5/10 LOCATION: Left chest FINDINGS: A single view of the chest demonstrates the lungs to be symmetrically aerated without evidence of mas s, infiltrate or effusion. The cardiomediastinal contours are unremarkable. Osseous structures are intact. CONCLUSION: No acute disease. Hugo Avelar MD on October 31, 2016 at 11:16 Board Certified Radiologist. This report was verified electronically.
--- NOTE | 2016-10-31 11:18 | RADRPT ---
EXAM DATE/TIME: 10/31/2016 10:51 [facility] COMPARISON: No previous studies available for comparison. INDICATIONS : Pain without trauma extending down arm. MEDICAL HISTORY : None. SURGICAL HISTORY : None. ENCOUNTER: Initial ACUITY: 1 day PAIN SCORE: 5/10 LOCATION: Left shoulder. FINDINGS: Multiple view examination of the left shoulder demonstrates no evidence of fracture or dislocation. The glenohumeral and acromioclavicular joints are maintained. There is normal range of motion betwee n internal and external rotation. Bony mineralization is normal. CONCLUSION: Unremarkable exam. Hugo Avelar MD on October 31, 2016 at 11:15 Board Certified Radiologist. This report was verified electronically.
[2016-10-31 11:23] LABS: CKMB 2.4 NG/ML (0.5-3.6)
[2016-10-31 11:27] LABS: KERATOCYTES OCC (NORMAL); PLATELET ESTIMATE SMEAR NORMAL (NORMAL); PLATELET MORPHOLOGY NORMAL (NORMAL); SCAN/DIFF AUTO DIFF CONFIRMED
[2016-10-31] MEDS ORDERED: SODIUM BICARBONATE 8.4% SOLN 50 MEQ/50 ML VIAL SLOW IVP ONE (12:00)
[2016-10-31] MEDS ORDERED: SODIUM CHLOR 0.9% 1000 ML INJ 1,000 ML IV ONE (12:00)
[2016-10-31] MEDS ORDERED: DEXTROSE 50% IN WATER 50 ML VIAL(D50) IV PUSH ONE (12:00)
[2016-10-31] MEDS ORDERED: SODIUM POLYSTYRENE SULFONATE SUSP 15 GM/60 ML CUP PO ONE (12:00)
[2016-10-31] MEDS ORDERED: CALCIUM GLUCONATE 10% 1 GM/10 ML VIAL SLOW IVP ONE (12:00)
[2016-10-31] MEDS ORDERED: INSULIN HUMAN REGULAR 1,000 UNITS/10 ML VIAL IV PUSH ONE (12:00)
[2016-10-31] MEDS ORDERED: SODIUM BICARBONATE 8.4% INJ 50 MEQ/50 ML SYR IV PUSH ONE (13:00)
--- NOTE | 2016-10-31 13:36 | PD ---
HPI Chief Complaint: Chest Pain Time Seen by Provider: 10:28 Travel History International Travel<30 days: No Contact w/Intl Traveler<30days: No Traveled to known affect area: No History of Present Illness HPI Patient is a 55-year-old male with history of hypertension, hyperlipidemia, diabetes, end-stage renal disease who received at kidney transplant (2008) and is no longer on dialysis, who presents to emergency room with complaints of chest pain. Patient reports that since last night, he has been having chest pain. Patient reports that chest pain feels like a sharp and stabbing sensation to his left chest, reports that the chest pain does radiate down his left arm. Patient reports that nothing makes the pain better or worse. Reports no history of [place] or coronary disease in the past. PFSH Past Medical History Hx Anticoagulant Therapy: No Asthma: No Blood Disorders: No Anxiety: No Depression: No Heart Rhythm Problems: No Cancer: No Cardiac Catheterization: No Cardiovascular Problems: Yes (CHF) High Cholesterol: Yes Chemotherapy: No Chest Pain: No Congestive Heart Failure: Yes COPD: No Cerebrovascular Accident: No Diabetes: Yes Patient Takes Glucophage: No Diminished Hearing: No Endocrine: No Genitourinary: No Hepatitis: No Hiatal Hernia: No Hypertension: Yes Immune Disorder: No Musculoskeletal: No Neurologic: No Psychiatric: No Reproductive: No Respiratory: Yes Immunizations Current: No Radiation Therapy: No Renal Failure: Yes (KIDNEY TRANSPLANT) Sleep Apnea: No Thyroid Disease: Yes Past Surgical History Abdominal Surgery: Yes (ABD AND INGUINAL HERNIA REPAIR) AICD: No Cardiac Surgery: No Coronary Artery Bypass Graft: No Ear Surgery: No Eye Surgery: No Genitourinary Surgery: Yes (KIDNEY TRSNSPLANT 2008) Gynecologic Surgery: No Joint Replacement: No Oral Surgery: No Pacemaker: No Thoracic Surgery: No Other Surgery: Yes (FISTULA LEFT UPPER ARM, kidney transplant ) Family History Family Myocardial Infarction: Yes (dad [place] 1994) Social History Alcohol Use: No Tobacco Use: No Substance Use: No Allergies-Medications (Allergen,Severity, Reaction): Coded Allergies: Banana (Verified Allergy, Severe, HIVES, 09/02/16) Beet (Verified Allergy, Severe, HIVES, 09/02/16) Pea (Verified Allergy, Severe, HIVES, 09/02/16) Latex (Verified Allergy, Unknown, 09/02/16) Uncoded Allergies: FRESH TOMATO (Allergy, Severe, 05/17/15) HIVES Reported Meds & Prescriptions Reported Meds & Active Scripts Active Zofran (Ondansetron HCl) 4 Mg Tab 4 Mg PO Q12HR PRN Protonix (Pantoprazole Sodium) 40 Mg Tab 40 Mg PO DAILY It is recommended that you do not take this medication for more than 2 weeks at a time. Metoprolol Succinate ER 24 HR (Metoprolol Succinate) 100 Mg Tab 100 Mg PO DAILY Levothyroxine (Levothyroxine Sodium) 25 Mcg Tab 25 Mcg PO DAILY Hydralazine (Hydralazine HCl) 25 Mg Tab 25 Mg PO TID Take with a meal Amlodipine (Amlodipine Besylate) 10 Mg Tab 10 Mg PO DAILY Atorvastatin (Atorvastatin Calcium) 40 Mg Tab 40 Mg PO EVERY OTHER DAY please check with your manufacturing helper about checking immunosuppresant levels when you go up to 40 mg daily. Lantus Inj (Insulin Glargine) 1,000 Unit/10 Ml Vial 26 Units SQ DAILY Humalog Inj (Insulin Human Lispro) 1,000 Unit/10 Ml Vial 4 Units SQ TID less than 70:0units;150-200: 2units; 201-250:4units;251-300: 6units; 301-350: 8units; more than 350: 12units. Baclofen 10 Mg Tab 10 Mg PO Q8HR PRN 7 Days Tylenol-Codeine #3 (Acetaminophen-Codeine) 300-30 mg Tab 1 Tab PO Q4H PRN Reported Fluticasone Nasal [place] 50 Mcg/Act Naspr 50 Mcg EACH NARE BID 50 mcg/spray Vitamin D (Cholecalciferol) 400 Unit/Ml Drops 400 Units PO DAILY Lisinopril 20 Mg Tab 20 Mg PO DAILY Magnesium Gluconate 500 Mg Tab 500 Mg PO DAILY Valganciclovir 450 Mg Tab 450 Mg PO DAILY Sodium Bicarbonate 650 Mg Tab 1,300 Mg PO BIDPC Prograf (Tacrolimus) 1 Mg Cap 1 Mg PO BID Mycophenolate (Mycophenolate Mofetil) 500 Mg Tab 500 Mg PO BID Deltasone (Prednisone) 20 Mg Tab 10 Mg PO DAILY Nephrocaps (B-Complex W/ C & Folic Acid) 1 Cap 1 Cap PO DAILY If on dialysis, take after treatment. Review of Systems General / Constitutional: No: Fever Eyes: No: Visual changes HENT: No: Headaches Cardiovascular: Positive: Chest Pain or Discomfort Respiratory: Positive: Shortness of Breath Gastrointestinal: No: Abdominal Pain Genitourinary: No: Dysuria Musculoskeletal: No: Pain Skin: No Rash Neurologic: No: Weakness Psychiatric: No: Depression Endocrine: No: Polydipsia Hematologic/Lymphatic: No: Easy Bruising Physical Exam Narrative GENERAL: No acute distress, nontoxic SKIN: Focused skin assessment warm/dry. HEAD: Atraumatic. Normocephalic. EYES: Pupils equal and round. No scleral icterus. No injection or drainage. ENT: No nasal bleeding or discharge. Mucous membranes pink and moist. NECK: Trachea midline. No JVD. CARDIOVASCULAR: Regular rate and rhythm. No murmur appreciated. RESPIRATORY: No accessory muscle use. Clear to auscultation. Breath sounds equal bilaterally. GASTROINTESTINAL: Abdomen soft, non-tender, nondistended. Hepatic and splenic margins not palpable. MUSCULOSKELETAL: No obvious deformities. No clubbing. No cyanosis. No edema. Left-sided AV fistula with good thrill NEUROLOGICAL: Awake and alert. No obvious cranial nerve deficits. Motor grossly within normal limits. Normal speech. PSYCHIATRIC: Appropriate mood and affect; insight and judgment normal. Data Data Last Documented VS Vital Signs Date Time Temp Pulse Resp B/P Pulse Ox O2 Delivery O2 Flow Rate FiO2 10/31/16 11:13 16 10/31/16 10:32 76 10/31/16 10:21 97.9 172/102 97 Room Air Orders Electrocardiogram (10/31/16 10:35) Ckmb (Isoenzyme) Profile (10/31/16 10:35) Complete Blood Count With Diff (10/31/16 10:35) Comprehensive Metabolic Panel (10/31/16 10:35) Magnesium (Mg) (10/31/16 10:35) Prothrombin Time / Inr (Pt) (10/31/16 10:35) Act Partial Throm Time (Ptt) (10/31/16 10:35) Troponin I (10/31/16 10:35) Chest, Single Ap (10/31/16 10:35) Ecg Monitoring (10/31/16 10:35) Bilateral Bp Monitoring (10/31/16 10:35) Iv Access Insert/Monitor (10/31/16 10:35) Oximetry (10/31/16 10:35) Oxygen Administration (10/31/16 10:35) Sodium Chloride 0.9% Flush (Ns Flush) (10/31/16 10:45) Shoulder, Complete (>2vws) (10/31/16 ) Morphine Inj (Morphine Inj) (10/31/16 10:45) CKMB (10/31/16 10:25) CKMB% (10/31/16 10:25) Sodium Chlor 0.9% 1000 Ml Inj (Ns 1000 M (10/31/16 12:00) Calcium Gluconate Inj (Calcium Gluconate (10/31/16 12:00) Insulin Human Regular Inj (Novolin R Inj (10/31/16 12:00) Dextrose 50% In [place] (Vial) Inj (D50w (Vi (10/31/16 12:00) Sodium Polysty Sulfate Liq (Kayexalate L (10/31/16 12:00) Sodium Bicarbonate 8.4% Inj (Sodium Bica (10/31/16 13:00) Admit Order (Ed Use Only) (10/31/16 13:10) Labs Laboratory Tests Test 10/31/16 10:25 White Blood Count 10.1 TH/MM3 Red Blood Count 4.58 MIL/MM3 Hemoglobin 11.2 GM/DL Hematocrit 35.5 % Mean Corpuscular Volume 77.6 FL Mean Corpuscular Hemoglobin 24.3 PG Mean Corpuscular Hemoglobin 31.4 % Concent Red Cell Distribution Width 16.5 % Platelet Count 174 TH/MM3 Mean Platelet Volume 8.9 FL Neutrophils (%) (Auto) 76.5 % Lymphocytes (%) (Auto) 10.6 % Monocytes (%) (Auto) 10.9 % Eosinophils (%) (Auto) 1.2 % Basophils (%) (Auto) 0.8 % Neutrophils # (Auto) 7.7 TH/MM3 Lymphocytes # (Auto) 1.1 TH/MM3 Monocytes # (Auto) 1.1 TH/MM3 Eosinophils # (Auto) 0.1 TH/MM3 Basophils # (Auto) 0.1 TH/MM3 CBC Comment AUTO DIFF Differential Comment AUTO DIFF CONFIRMED Platelet Estimate NORMAL Platelet Morphology Comment NORMAL Keratocytes OCC Prothrombin Time 10.7 SEC Prothromb Time International 1.0 RATIO Ratio Activated Partial 29.6 SEC Thromboplast Time Sodium Level 140 MEQ/L Potassium Level 5.3 MEQ/L Chloride Level 114 MEQ/L Carbon Dioxide Level 18.7 MEQ/L Anion Gap 7 MEQ/L Blood Urea Nitrogen 37 MG/DL Creatinine 2.32 MG/DL Estimat Glomerular Filtration 36 ML/MIN Rate Random Glucose 173 MG/DL Calcium Level 8.7 MG/DL Magnesium Level 1.8 MG/DL Total Bilirubin 0.4 MG/DL Aspartate Amino Transf 15 U/L (AST/SGOT) Alanine Aminotransferase 16 U/L (ALT/SGPT) Alkaline Phosphatase 102 U/L Total Creatine Kinase 142 U/L Creatine Kinase MB 2.4 NG/ML Troponin I 0.02 NG/ML Total Protein 6.8 GM/DL Albumin 3.2 GM/DL MDM Medical Decision Making Medical Screen Exam Complete: Yes Emergency Medical Condition: Yes Interpretation(s) EKG at 1026: Normal sinus rhythm at 76 beats for minute, QT/QTC 346/376, nonspecific T-wave changes Vital Signs Date Time Temp Pulse Resp B/P Pulse Ox O2 Delivery O2 Flow Rate FiO2 10/31/16 11:13 16 10/31/16 10:32 76 10/31/16 10:21 97.9 70 24 172/102 97 Room Air Laboratory Tests Test 10/31/16 10:25 White Blood Count 10.1 TH/MM3 (4.0-11.0) Red Blood Count 4.58 MIL/MM3 (4.50-5.90) Hemoglobin 11.2 GM/DL (13.0-17.0) Hematocrit 35.5 % (39.0-51.0) Mean Corpuscular Volume 77.6 FL (80.0-100.0) Mean Corpuscular Hemoglobin 24.3 PG (27.0-34.0) Mean Corpuscular Hemoglobin 31.4 % Concent (32.0-36.0) Red Cell Distribution Width 16.5 % (11.6-17.2) Platelet Count 174 TH/MM3 (150-450) Mean Platelet Volume 8.9 FL (7.0-11.0) Neutrophils (%) (Auto) 76.5 % (16.0-70.0) Lymphocytes (%) (Auto) 10.6 % (9.0-44.0) Monocytes (%) (Auto) 10.9 % (0.0-8.0) Eosinophils (%) (Auto) 1.2 % (0.0-4.0) Basophils (%) (Auto) 0.8 % (0.0-2.0) Neutrophils # (Auto) 7.7 TH/MM3 (1.8-7.7) Lymphocytes # (Auto) 1.1 TH/MM3 (1.0-4.8) Monocytes # (Auto) 1.1 TH/MM3 (0-0.9) Eosinophils # (Auto) 0.1 TH/MM3 (0-0.4) Basophils # (Auto) 0.1 TH/MM3 (0-0.2) CBC Comment AUTO DIFF Differential Comment AUTO DIFF CONFIRMED Platelet Estimate NORMAL (NORMAL) Platelet Morphology Comment NORMAL (NORMAL) Keratocytes OCC (NORMAL) Prothrombin Time 10.7 SEC (9.8-11.6) Prothromb Time International 1.0 RATIO Ratio Activated Partial 29.6 SEC Thromboplast Time (24.3-30.1) Sodium Level 140 MEQ/L (136-145) Potassium Level 5.3 MEQ/L (3.5-5.1) Chloride Level 114 MEQ/L (98-107) Carbon Dioxide Level 18.7 MEQ/L (21.0-32.0) Anion Gap 7 MEQ/L (5-15) Blood Urea Nitrogen 37 MG/DL (7-18) Creatinine 2.32 MG/DL (0.60-1.30) Estimat Glomerular Filtration 36 ML/MIN (>89) Rate Random Glucose 173 MG/DL (74-106) Calcium Level 8.7 MG/DL (8.5-10.1) Magnesium Level 1.8 MG/DL (1.5-2.5) Total Bilirubin 0.4 MG/DL (0.2-1.0) Aspartate Amino Transf 15 U/L (15-37) (AST/SGOT) Alanine Aminotransferase 16 U/L (12-78) (ALT/SGPT) Alkaline Phosphatase 102 U/L (45-117) Total Creatine Kinase 142 U/L (39-308) Creatine Kinase MB 2.4 NG/ML (0.5-3.6) Troponin I 0.02 NG/ML (0.02-0.05) Total Protein 6.8 GM/DL (6.4-8.2) Albumin 3.2 GM/DL (3.4-5.0) Last Impressions Chest X-Ray 10/31/16 1035 Signed Impressions: Service Date/Time: Monday, October 31, 2016 10:57 - CONCLUSION: No acute disease. Hugo Avelar MD Shoulder X-Ray 10/31/16 0000 Signed Impressions: Service Date/Time: Monday, October 31, 2016 10:51 - CONCLUSION: Unremarkable exam. Hugo Avelar MD Differential Diagnosis ACS, musculoskeletal chest pain, PE, electrolyte abnormality Narrative Course Patient is a 55-year-old male who presents to emergency room with complaints of chest pain. Patient reports that chest began last night, reports the pain is sharp and stabbing in nature and radiates and his left arm. Patient was placed on a sales agent protective service upon arrival to the emergency room, labs as well as x-ray of the chest and EKG obtained. Patient's potassium is 5.3 which is patient's baseline, this was reviewed with his previous labs, his creatinine is 2.32 to which is also at baseline for him. Medication to treat hyperkalemia were initially ordered for patient, plan to hold this as patient also reports that this is his baseline potassium and creatinine. Plan to observe patient and the chest pain unit. Diagnosis Primary Impression: Acute chest pain Admitting Information Admitting Physician Requests: Observation Hyun Chu DO October 31, 2016 13:36
[2016-10-31 13:40] VITALS: BP 154/93; PULSE 64; RESP 21
[2016-10-31 13:57] VITALS: O2SAT 96
[2016-10-31 13:59] LABS: CREATINE KINASE 124 U/L (39-308)
[2016-10-31] MEDS ORDERED: ONDANSETRON HCL 4 MG/2 ML VIAL IV PRN (14:00)
[2016-10-31] MEDS ORDERED: NITROGLYCERIN 0.4 MG SL 25 TABS/BTL SL PRN (14:00)
[2016-10-31] MEDS ORDERED: ACETAMINOPHEN 500 MG CPLT PO PRN (14:00)
[2016-10-31 14:11] LABS: CKMB 1.9 NG/ML (0.5-3.6)
--- NOTE | 2016-10-31 14:53 | HHI.DCPOC ---
Discharge Care Plan Diagnosis: (1) Chest wall pain Goals to Promote Your Health * To prevent worsening of your condition and complications * To maintain your health at the optimal level Directions to Meet Your Goals Take your medications as prescribed Follow your dietary instruction Follow activity as directed Keep your appointments as scheduled Take your immunizations and boosters as scheduled If your symptoms worsen call your PCP, if no PCP go to Urgent Care Center or Emergency Room Smoking is Dangerous to Your Health. Avoid second hand smoke Call the 24-hour hour crisis hotline for domestic abuse at Anjelica Johns October 31, 2016 14:53
--- NOTE | 2016-10-31 14:54 | HHI.HP ---
HPI Primary Care Physician Kiera Cesar MD Chief Complaint Chest pain History of Present Illness 55-year-old male with history of diabetes, hypertension, hyperlipidemia, and past kidney transplant reports the emergency room for further evaluation of intermittent chest pain since last evening. Location left anterior chest. Characterized as a sharp, shooting, stabbing pain. Duration last seconds. Pain radiates to left arm occasionally. No associated symptoms. No precipitating or relieving factors. Review of Systems General: No fatigue,weakness, fever, chills, or recent illness. Has been in his general state of health, no known trauma to area. Kidney transplant 2008, no longer requires dialysis. HEENT: No LO CV: As stated above. During exam patient experienced 2 quick sharp chest pain episode. No palpitations. RESP: No SOB, cough, wheeze, or recent URI. History of asthma as a child. GI: No nausea, vomiting, bowel changes, diarrhea, constipation, pain, distention , melena, blood in the stool. No change in appetite, no unintentional weight gain or weight loss EXT: No lower leg edema, no paraesthesias MS: No discomfort or change in ROM NEURO: No change in memory, dizziness, difficulty with balance, LOC, motor/ sensory deficits PSYCH: No anxiety or depression SKIN: No rashes, no concerning lesions Past Family Social History Allergies: Coded Allergies: Banana (Verified Allergy, Severe, HIVES, 09/02/16) Beet (Verified Allergy, Severe, HIVES, 09/02/16) Pea (Verified Allergy, Severe, HIVES, 09/02/16) Latex (Verified Allergy, Unknown, 09/02/16) Uncoded Allergies: FRESH TOMATO (Allergy, Severe, 05/17/15) HIVES Past Medical History Diabetes, hyperlipidemia,, cough kidney disease, hypertension Past Surgical History Kidney [id number], inguinal hernia repair, hiatal hernia repair Reported Medications Reported Meds & Active Scripts Active Zofran (Ondansetron HCl) 4 Mg Tab 4 Mg PO Q12HR PRN Protonix (Pantoprazole Sodium) 40 Mg Tab 40 Mg PO DAILY It is recommended that you do not take this medication for more than 2 weeks at a time. Metoprolol Succinate ER 24 HR (Metoprolol Succinate) 100 Mg Tab 100 Mg PO DAILY Levothyroxine (Levothyroxine Sodium) 25 Mcg Tab 25 Mcg PO DAILY Hydralazine (Hydralazine HCl) 25 Mg Tab 25 Mg PO TID Take with a meal Amlodipine (Amlodipine Besylate) 10 Mg Tab 10 Mg PO DAILY Atorvastatin (Atorvastatin Calcium) 40 Mg Tab 40 Mg PO EVERY OTHER DAY please check with your production assembly operator about checking immunosuppresant levels when you go up to 40 mg daily. Lantus Inj (Insulin Glargine) 1,000 Unit/10 Ml Vial 26 Units SQ DAILY Humalog Inj (Insulin Human Lispro) 1,000 Unit/10 Ml Vial 4 Units SQ TID less than 70:0units;150-200: 2units; 201-250:4units;251-300: 6units; 301-350: 8units; more than 350: 12units. Baclofen 10 Mg Tab 10 Mg PO Q8HR PRN 7 Days Tylenol-Codeine #3 (Acetaminophen-Codeine) 300-30 mg Tab 1 Tab PO Q4H PRN Reported Fluticasone Nasal [place] 50 Mcg/Act Naspr 50 Mcg EACH NARE BID 50 mcg/spray Vitamin D (Cholecalciferol) 400 Unit/Ml Drops 400 Units PO DAILY Lisinopril 20 Mg Tab 20 Mg PO DAILY Magnesium Gluconate 500 Mg Tab 500 Mg PO DAILY Valganciclovir 450 Mg Tab 450 Mg PO DAILY Sodium Bicarbonate 650 Mg Tab 1,300 Mg PO BIDPC Prograf (Tacrolimus) 1 Mg Cap 1 Mg PO BID Mycophenolate (Mycophenolate Mofetil) 500 Mg Tab 500 Mg PO BID Deltasone (Prednisone) 20 Mg Tab 10 Mg PO DAILY Nephrocaps (B-Complex W/ C & Folic Acid) 1 Cap 1 Cap PO DAILY If on dialysis, take after treatment. Active Ordered Medications Current Medications Medications (Trade) Dose Ordered Sig/Yasmany Route Start Time Stop Time Status Last Admin (NS Flush) 2 ml UNSCH PRN IVF 10/31/16 10:45 (NS Flush) 2 ml BID IV FLUSH 10/31/16 21:00 (Tylenol) 500 mg Q4H PRN PO 10/31/16 14:00 (Zofran Inj) 4 mg Q6H PRN IV 10/31/16 14:00 (Nitrostat Sl) 0.4 mg Q5M PRN SL 10/31/16 14:00 (Aspirin) 325 mg DAILY PO 11/01/16 09:00 Family History Father from [place] age 57-father had hypertension and diabetes, mother from pneumonia, no siblings with early onset cardiovascular disease however most have hypertension. Social History Known hypertension, diabetes, hyperlipidemia. Lifelong nonsmoker. Denies any alcohol or illegal drug use. Endorses he tries to stay active, walking twice weekly. Past cardiac testing No recent cardiac testing. Never had cardiac catheterization. 05/20/15 Alyse scan negative for ischemia, LVEF 64% Physical Exam Vital Signs Vital Signs Date Time Temp Pulse Resp B/P Pulse Ox O2 Delivery O2 Flow Rate FiO2 10/31/16 13:57 96 21 10/31/16 13:40 64 21 154/93 10/31/16 11:13 16 10/31/16 10:32 76 10/31/16 10:21 97.9 70 24 172/102 97 Room Air Physical Exam GENERAL: Alert WN, WD, NAD, pleasant, male HEAD: NC, AT NECK: Supple, no masses, trachea midline CV: RRR, without murmur, rub, gallop, no JVD, S1-S2 no S3-S4. No carotid or femoral bruits. Left upper extremity fistula present +bruit, +thrill. Bilateral radial pulses +2 equal. RESP: Clear lungs throughout bilateral, no crackles, wheeze, rhonchi, symmetrical chest rise, nonlabored, able to speak in full sentences ABD: Soft, NT, ND, no masses, positive bowel tones EXT: Pulses +24, no dependent edema MS: Normal tone 4 extremities, nontender, no obvious deformities, full range of motion NEURO: CN II through CN XII grossly intact, motor strength 5/5, gait WNL PSYCH: A+O 3, pleasant affect, appropriate speech, appropriate mood and affect , insight and judgment SKIN: Normal turgor, normal texture, no lesions, no rashes, even hair distribution Laboratory Laboratory Tests Test 10/31/16 10/31/16 10:25 13:20 White Blood Count 10.1 Red Blood Count 4.58 Hemoglobin 11.2 Hematocrit 35.5 Mean Corpuscular Volume 77.6 Mean Corpuscular Hemoglobin 24.3 Mean Corpuscular Hemoglobin 31.4 Concent Red Cell Distribution Width 16.5 Platelet Count 174 Mean Platelet Volume 8.9 Neutrophils (%) (Auto) 76.5 Lymphocytes (%) (Auto) 10.6 Monocytes (%) (Auto) 10.9 Eosinophils (%) (Auto) 1.2 Basophils (%) (Auto) 0.8 Neutrophils # (Auto) 7.7 Lymphocytes # (Auto) 1.1 Monocytes # (Auto) 1.1 Eosinophils # (Auto) 0.1 Basophils # (Auto) 0.1 CBC Comment AUTO DIFF Differential Comment AUTO DIFF CONFIRMED Platelet Estimate NORMAL Platelet Morphology Comment NORMAL Keratocytes OCC Prothrombin Time 10.7 Prothromb Time International 1.0 Ratio Activated Partial 29.6 Thromboplast Time Sodium Level 140 Potassium Level 5.3 Chloride Level 114 Carbon Dioxide Level 18.7 Anion Gap 7 Blood Urea Nitrogen 37 Creatinine 2.32 Estimat Glomerular Filtration 36 Rate Random Glucose 173 Calcium Level 8.7 Magnesium Level 1.8 Total Bilirubin 0.4 Aspartate Amino Transf 15 (AST/SGOT) Alanine Aminotransferase 16 (ALT/SGPT) Alkaline Phosphatase 102 Total Creatine Kinase 142 124 Creatine Kinase MB 2.4 1.9 Troponin I 0.02 0.02 Total Protein 6.8 Albumin 3.2 Result Diagram: 10/31/16 1025 10/31/16 1025 Imaging Last Impressions Chest X-Ray 10/31/16 1035 Signed Impressions: Service Date/Time: Monday, October 31, 2016 10:57 - CONCLUSION: No acute disease. Hugo Avelar MD Shoulder X-Ray 10/31/16 0000 Signed Impressions: Service Date/Time: Monday, October 31, 2016 10:51 - CONCLUSION: Unremarkable exam. Hugo Avelar MD Course EKGs 2 EKGs show normal sinus rhythm, normal axis, with nonspecific T-wave changes Assessment and Plan Assessment and Plan #1 Chest painadmitted to chest pain center. Ruled out with 2 sets of EKGs and cardiac enzymes. Seen and evaluated by Dr. Carroll Stevens. Patient's chest pain is clearly musculoskeletal in nature as it is easily reproduced and localize. No further cardiac testing is required at this time. Will discharge patient this afternoon. Patient and whom is at bedside is agreeable to this plan a care. #2 Left shoulder painpatient and notified left shoulder x-ray unremarkable. Instructed to follow up with Dr. Slater regarding their concern of fistula. Reassured fistula is still functional with no signs of infection. #3 Musculoskeletal painencourage use of heating pad to affected area. May use [id number] Tylenol as needed for pain and to await NSAIDs to chronic kidney disease and transplant. Follow up with primary care provider if pain persists. Anjelica Johns October 31, 2016 14:53
[2016-10-31] MEDS ORDERED: SODIUM CHLORIDE 0.9% FLUSH 10 ML FLUSH IV FLUSH SCH (21:00)
--- NOTE | 2016-10-31 21:53 | EKG ---
Date Performed: 10/31/2016 Time Performed: 10:26:42 PTAGE: 55 years EKG: Sinus rhythm NONSPECIFIC T-WAVE ABNORMALITY BORDERLINE ECG INTERPRETATION BASED ON A DEFAULT AGE OF 40 YEARS PREVIOUS TRACING : 03/18/2016 08.55 DOCTOR: Clement Osman Interpretating Date/Time 10/31/2016 21:49:38
[2016-11-01] MEDS ORDERED: ASPIRIN 325 MG TAB PO SCH (09:00)
--- NOTE | 2016-11-01 14:17 | EKG ---
Date Performed: 10/31/2016 Time Performed: 14:11:37 PTAGE: 55 years EKG: Sinus rhythm NONSPECIFIC T-WAVE ABNORMALITY BORDERLINE ECG PREVIOUS TRACING : 10/31/2016 10.26 Since previous tracing, no significant change noted DOCTOR: Carroll Stevens Interpretating Date/Time 11/01/2016 14:17:04
[2016-11-10] MEDS ORDERED: HUMALOG SQ (11:03)
[2016-11-10] MEDS ORDERED: INSU-98 (11:14)
[2016-11-19] MEDS ORDERED: AMLO10TA2 PO (09:03)
[2016-11-19] MEDS ORDERED: LANTUS2P SQ (09:03)
[2016-11-19] MEDS ORDERED: LISI20TA3 PO (09:03)
[2016-11-19] MEDS ORDERED: PANT20 PO (09:03)
[2016-11-19] MEDS ORDERED: LEVO25TA4 PO (09:03)
[2016-11-19] MEDS ORDERED: METO100T9 PO (09:03)
[2016-11-19] MEDS ORDERED: HYDR-3801 PO (09:03)
[2016-11-19] MEDS ORDERED: ATOR40TA16 PO (09:03)
[2016-12-24] MEDS ORDERED: INSU-98 (13:55)
[2016-12-24] MEDS ORDERED: LANTUS2P SQ (15:56)
[2016-12-25] MEDS ORDERED: HUMALOG SQ (16:57)
[2016-12-28] MEDS ORDERED: HUMA100I3 SQ (11:32)
== END 2016-10-31 15:21 | disposition home or self-care (01) ==
LOC: NEPE 10:18 → NEDA 13:11
DX: R07.89 Other chest pain (principal); M25.512 Pain in left shoulder; M79.1 Myalgia; E78.5 Hyperlipidemia, unspecified; E11.9 Type 2 diabetes mellitus without complications; I10 Essential (primary) hypertension; E78.00 Pure hypercholesterolemia, unspecified; Z94.0 Kidney transplant status; Z91.040 Latex allergy status; Z91.018 Allergy to other foods; Z79.4 Long term (current) use of insulin; Z82.49 Family history of ischemic heart disease and other diseases of the circulatory system
CPT/HCPCS: 71010; 73030; 80053; 82550; 82552; 83735; 84484; 85025; 85610; 85730; 93005; 96374; 99285; G0378; J2270; J7030

== ENCOUNTER 2016-11-05 09:17 | Emergency (ER) | payer MEDICARE, MEDICAID ==
[~2016-11-05] VITALS: Ht 181.6 cm; Wt 75.2 kg
[2016-11-05 09:18] VITALS: BP 174/97; PULSE 64; RESP 20; TEMP 99.7; O2SAT 97
--- NOTE | 2016-11-05 10:46 | PD ---
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 He describes the chest pain as left sided and radiating into his left arm. The chest pain, came back but now it is localized to his left arm. The pain is described as a sharp stabbing pain. . Pain is constant. His arm is more "tight" and swollen since Wednesday10/30/2016. Not worse with exertion. Not associated with N/V/diaphoresis. He does not feel SOB. He does not feel like he has a fever. No chills. Went to PCP today and she evaluated his arm, called Dr. Pereira and they agreed to sending the patient to the emergency department. (Ryne Bhatti MD R2) History Past Medical History Narrative Medical Past Medical History Past Medical History Renal transplant recipient 2008 Diabetes mellitus 2008 Diarrhea recurrent 2014. ESRD (end stage renal disease) due to high blood pressure. (2008). Hypertension 2008 Short of breath. 05/11/2015 Chest pain 05/11/2015. Left knee pain - hurt during martial arts tournament . Open Karate tournament. Hyperextended when planting the foot after crescent kick. Nephrology - Dr. Pereira. [facility] Reviewed: Yes Endocrine: REPORTS HX OF: Diabetes mellitus Cardiovascular: REPORTS HX OF: Hyperlipidemia, Hypertension Genitourinary: REPORTS HX OF: Chlamydia Infectious disease: REPORTS HX OF: Chickenpox, Measles, Mumps Past Surgical History Gastrointestinal: DENIES HX OF: Colectomy, total Genitourinary: REPORTS HX OF: Other surgery (Kidney trasnplant 2008. ) Musculoskeletal: REPORTS HX OF: Other musculoskeletal srg (ACL left 1983. 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 - Marycarmen 54. 2 children. Stressors - health. 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 Alcohol Use Alcohol intake: None Counseling given: None Substance Use Substance use: Denies use Safety Vehicle safety: Seatbelt use: Always Drive intox or ride w/intox dr: Never Anxiety: No Asthma: No Blood Disorders: No Cancer: No Heart Rhythm Problems: No Cardiovascular Problems: Yes High Cholesterol: Yes Chemotherapy: No Chest Pain: No Congestive Heart Failure: Yes COPD: No Cerebrovascular Accident: No Cardiac Catheterization: No Depression: No Diabetes: Yes Patient Takes Glucophage: No Endocrine: No Genitourinary: No Hearing: No Hepatitis: No Hiatal Hernia: No Hypertension: Yes Immune Disorder: No Musculoskeletal: No Neurologic: No Psychiatric: No Reproductive: No Respiratory: Yes Immunizations Current: No Radiation Therapy: No Renal Failure: Yes (KIDNEY TRANSPLANT) Sleep Apnea: No Thyroid Disease: Yes Tetanus Vaccination: < 5 Years Vision or Eye Problem: No (Ryne Bhatti MD R2) Past Surgical History Abdominal Surgery: Yes (ABD AND INGUINAL HERNIA REPAIR) AICD: No Cardiac Surgery: No Coronary Artery Bypass Graft: No Ear Surgery: No Eye Surgery: No Genitourinary Surgery: Yes (KIDNEY TRSNSPLANT 2008) Gynecologic Surgery: No Joint Replacement: No Oral Surgery: No Pacemaker: No Thoracic Surgery: No Other Surgery: Yes (FISTULA LEFT UPPER ARM, kidney transplant ) (Ryne Bhatti MD R2) Family History Family Myocardial Infarction: Yes (dad [place] 1994) (Ryne Bhatti MD R2) Social History Tobacco Use in Home: No Alcohol Use: No Tobacco Use: No Substance Use: No (Ryne Bhatti MD R2) Allergies-Medications (Allergen,Severity, Reaction): Coded Allergies: Banana (Verified Allergy, Severe, HIVES, 11/05/16) Beet (Verified Allergy, Severe, HIVES, 11/05/16) Pea (Verified Allergy, Severe, HIVES, 11/05/16) Latex (Verified Allergy, Unknown, 11/05/16) Uncoded Allergies: FRESH TOMATO (Allergy, Severe, 05/17/15) HIVES Reported Meds & Prescriptions Reported Meds & Active Scripts Active Zofran (Ondansetron HCl) 4 Mg Tab 4 Mg PO Q12HR PRN Protonix (Pantoprazole Sodium) 40 Mg Tab 40 Mg PO DAILY It is recommended that you do not take this medication for more than 2 weeks at a time. Metoprolol Succinate ER 24 HR (Metoprolol Succinate) 100 Mg Tab 100 Mg PO DAILY Levothyroxine (Levothyroxine Sodium) 25 Mcg Tab 25 Mcg PO DAILY Hydralazine (Hydralazine HCl) 25 Mg Tab 25 Mg PO TID Take with a meal Amlodipine (Amlodipine Besylate) 10 Mg Tab 10 Mg PO DAILY Atorvastatin (Atorvastatin Calcium) 40 Mg Tab 40 Mg PO EVERY OTHER DAY please check with your community nutrition educator about checking immunosuppresant levels when you go up to 40 mg daily. Lantus Inj (Insulin Glargine) 1,000 Unit/10 Ml Vial 26 Units SQ DAILY Humalog Inj (Insulin Human Lispro) 1,000 Unit/10 Ml Vial 4 Units SQ TID less than 70:0units;150-200: 2units; 201-250:4units;251-300: 6units; 301-350: 8units; more than 350: 12units. Baclofen 10 Mg Tab 10 Mg PO Q8HR PRN 7 Days Tylenol-Codeine #3 (Acetaminophen-Codeine) 300-30 mg Tab 1 Tab PO Q4H PRN Reported Fluticasone Nasal [place] 50 Mcg/Act Naspr 50 Mcg EACH NARE BID 50 mcg/spray Vitamin D (Cholecalciferol) 400 Unit/Ml Drops 400 Units PO DAILY Lisinopril 20 Mg Tab 20 Mg PO DAILY Magnesium Gluconate 500 Mg Tab 500 Mg PO DAILY Valganciclovir 450 Mg Tab 450 Mg PO DAILY Sodium Bicarbonate 650 Mg Tab 1,300 Mg PO BIDPC Prograf (Tacrolimus) 1 Mg Cap 1 Mg PO BID Mycophenolate (Mycophenolate Mofetil) 500 Mg Tab 500 Mg PO BID Deltasone (Prednisone) 20 Mg Tab 10 Mg PO DAILY Nephrocaps (B-Complex W/ C & Folic Acid) 1 Cap 1 Cap PO DAILY If on dialysis, take after treatment. (Karon Sheriff MD) ROS Constitutional: No: Fever, Chills Eyes: No: Diploplia HENT: No: Headaches Cardiovascular: No: Palpitations Gastrointestinal: Positive: Diarrhea (2 days ago ), No: Nausea, Vomiting ( Ryne Bhatti MD R2) Physical Exam Narrative GEN: Well appearing, NAD HEENT: PERRL, EOM intact, no LA, Neck supple CV: RRR, no murmurs GI: Soft NT ND EXT: well perfused, left arm with dilated left cephalic vein measuring 2 cm, non -erythematous, tender to palpation. Radial pulses equal to both arms. Cap refill < 2 secs and brisk. Full motor and sensation to the extremity. (Ryne Bhatti MD R2) Data Data Last Documented VS Vital Signs Date Time Temp Pulse Resp B/P Pulse Ox O2 Delivery O2 Flow Rate FiO2 11/05/16 09:18 99.7 64 20 174/97 97 Room Air (Karon Sheriff MD) Orders Us Arm Venous Doppler (11/05/16 ) Complete Blood Count With Diff (11/05/16 10:58) Comprehensive Metabolic Panel (11/05/16 10:58) Prothrombin Time / Inr (Pt) (11/05/16 11:15) Act Partial Throm Time (Ptt) (11/05/16 11:15) Electrocardiogram (11/05/16 12:04) Acetamin-Hydrocod 325-5 Mg ([place] 5-325 (11/05/16 12:15) Acetaminophen (Tylenol) (11/05/16 13:30) (Karon Sheriff MD) Labs Laboratory Tests Test 11/05/16 11:15 White Blood Count 10.5 TH/MM3 Red Blood Count 4.31 MIL/MM3 Hemoglobin 10.3 GM/DL Hematocrit 33.0 % Mean Corpuscular Volume 76.5 FL Mean Corpuscular Hemoglobin 23.8 PG Mean Corpuscular Hemoglobin 31.1 % Concent Red Cell Distribution Width 16.4 % Platelet Count 211 TH/MM3 Mean Platelet Volume 8.2 FL Neutrophils (%) (Auto) 88.2 % Lymphocytes (%) (Auto) 5.9 % Monocytes (%) (Auto) 4.6 % Eosinophils (%) (Auto) 0.5 % Basophils (%) (Auto) 0.8 % Neutrophils # (Auto) 9.2 TH/MM3 Lymphocytes # (Auto) 0.6 TH/MM3 Monocytes # (Auto) 0.5 TH/MM3 Eosinophils # (Auto) 0.0 TH/MM3 Basophils # (Auto) 0.1 TH/MM3 CBC Comment AUTO DIFF Differential Comment AUTO DIFF CONFIRMED Tear Drop Cells Ovalocytes 1+ Acanthocytes 1+ Prothrombin Time 10.3 SEC Prothromb Time International 0.9 RATIO Ratio Activated Partial 32.4 SEC Thromboplast Time Sodium Level 138 MEQ/L Potassium Level 6.0 MEQ/L Chloride Level 113 MEQ/L Carbon Dioxide Level 18.1 MEQ/L Anion Gap 7 MEQ/L Blood Urea Nitrogen 36 MG/DL Creatinine 2.25 MG/DL Estimat Glomerular Filtration 37 ML/MIN Rate Random Glucose 89 MG/DL Calcium Level 8.8 MG/DL Total Bilirubin 0.3 MG/DL Aspartate Amino Transf 18 U/L (AST/SGOT) Alanine Aminotransferase 13 U/L (ALT/SGPT) Alkaline Phosphatase 92 U/L Total Protein 6.9 GM/DL Albumin 3.0 GM/DL (Karon Sheriff MD) [facility] Medical Decision Making Medical Screen Exam Complete: Yes Emergency Medical Condition: Yes Differential Diagnosis DVT, superficial thrombus, cellulitis, abscess, muscle strain, cervical radiculopathy. Narrative Course Patient was seen and evaluated by myself and Dr. Sheriff. His left arm was concerned for possible DVT, versus superficial thrombophlebitis. Basic lab chemistries were performed, and an ultrasound of the left upper extremity. All blood chemistries were at his baseline. There was no significant leukocytosis. PT/INR were 10.3 and 0.9. An EKG was done which showed no changes since 2016. The ultrasound Doppler showed no deep vein thrombosis, but did show a superficial thrombosis in the left cephalic vein. Vascular surgery was consulted. (Ryne Bhatti MD R2) Medical Screen Exam Complete: Yes Emergency Medical Condition: Yes Differential Diagnosis av fistula occlusion, superficial thrombophlebitis, stent occlusion, cellulitis (Karon Sheriff MD) Ryne Bhatti MD R2 November 05, 2016 10:46 Karon Sheriff MD November 05, 2016 15:41
[2016-11-05 11:38] LABS: AUTOMATED NEUTROPHIL # 9.2 TH/MM3 (1.8-7.7); BASOPHIL # 0.1 TH/MM3 (0-0.2); BASOPHIL % 0.8 % (0.0-2.0); EOSINOPHIL % 0.5 % (0.0-4.0); LYMPH % 5.9 % (9.0-44.0); LYMPHOCYTE # 0.6 TH/MM3 (1.0-4.8); MEAN CELL VOLUME 76.5 FL (80.0-100.0); MEAN CORPUSCULAR HEMOGLOBIN 23.8 PG (27.0-34.0); MEAN CORPUSCULAR HGB CONC 31.1 % (32.0-36.0); MONO % 4.6 % (0.0-8.0); NEUT % 88.2 % (16.0-70.0); PLATELET COUNT 211 TH/MM3 (150-450); RED BLOOD COUNT 4.31 MIL/MM3 (4.50-5.90); RED CELL DISTRIBUTION WIDTH 16.4 % (11.6-17.2); WHITE BLOOD COUNT 10.5 TH/MM3 (4.0-11.0)
[2016-11-05 11:40] LABS: HEMO FLAGS AUTO DIFF
[2016-11-05 11:44] LABS: APTT (PATIENT) 32.4 SEC (24.3-30.1); INTERNATIONAL NORMALIZED RATIO 0.9 RATIO; PROTHROMBIN TIME - PATIENT 10.3 SEC (9.8-11.6)
[2016-11-05 11:54] LABS: ALKALINE PHOSPHATASE 92 U/L (45-117); TOTAL BILIRUBIN ADULT 0.3 MG/DL (0.2-1.0)
[2016-11-05 12:02] LABS: ALT (GPT) 13 U/L (12-78); ANION GAP 7 MEQ/L (5-15); AST (GOT) 18 U/L (15-37); BICARBONATE 18.1 MEQ/L (21.0-32.0); BLOOD UREA NITROGEN 36 MG/DL (7-18); CHLORIDE 113 MEQ/L (98-107); GLOMERULAR FILTRATION RATE 37 ML/MIN (>89); SODIUM (NA) 138 MEQ/L (136-145)
[2016-11-05] MEDS ORDERED: ACETAMINOPHEN/HYDROcodone 325 MG/5 MG TAB PO ONE (12:15)
[2016-11-05 13:07] LABS: ACANTHOCYTES 1+ (NORMAL); OVALOCYTES 1+ (NORMAL); SCAN/DIFF AUTO DIFF CONFIRMED
[2016-11-05] MEDS ORDERED: ACETAMINOPHEN 325 MG TAB PO ONE (13:30)
--- NOTE | 2016-11-05 13:57 | RADRPT ---
EXAM DATE/TIME: 11/05/2016 12:43 [place] COMPARISON: No previous studies available for comparison. INDICATIONS : Left arm pain and swelling. MEDICAL HISTORY : Hypercholesterolemia. Hypertension. Congestive heart failure. Hyperlipidemia. Chlamydia. Renal failur e. Diabetes. SURGICAL HISTORY : Kidney transplant. Left ACL repair. AVF, left arm. ENCOUNTER: Initial ACUITY: 4 - 6 days PAIN SCORE: 10/10 LOCATION: Left arm. FINDINGS: No deep venous thrombosis is present. There is occlusive and nonocclusive thrombus in the left cephal ic vein extending from the origin to just proximal to the AV fistula anastomosis in the distal arm. CONCLUSION: 1. Negative deep venous thrombosis. Positive superficial thrombosis in the left cephalic vein in baldev ent with AV fistula. Adam Martin MD on November 05, 2016 at 13:52 Board Certified Radiologist. This report was verified electronically.
--- NOTE | 2016-11-05 14:34 | PD ---
Data Data Last Documented VS Vital Signs Date Time Temp Pulse Resp B/P Pulse Ox O2 Delivery O2 Flow Rate FiO2 11/05/16 09:18 99.7 64 20 174/97 97 Room Air Orders Us Arm Venous Doppler (11/05/16 ) Complete Blood Count With Diff (11/05/16 10:58) Comprehensive Metabolic Panel (11/05/16 10:58) Prothrombin Time / Inr (Pt) (11/05/16 11:15) Act Partial Throm Time (Ptt) (11/05/16 11:15) Electrocardiogram (11/05/16 12:04) Acetamin-Hydrocod 325-5 Mg ([place] 5-325 (11/05/16 12:15) Acetaminophen (Tylenol) (11/05/16 13:30) Labs Laboratory Tests Test 11/05/16 11:15 White Blood Count 10.5 TH/MM3 Red Blood Count 4.31 MIL/MM3 Hemoglobin 10.3 GM/DL Hematocrit 33.0 % Mean Corpuscular Volume 76.5 FL Mean Corpuscular Hemoglobin 23.8 PG Mean Corpuscular Hemoglobin 31.1 % Concent Red Cell Distribution Width 16.4 % Platelet Count 211 TH/MM3 Mean Platelet Volume 8.2 FL Neutrophils (%) (Auto) 88.2 % Lymphocytes (%) (Auto) 5.9 % Monocytes (%) (Auto) 4.6 % Eosinophils (%) (Auto) 0.5 % Basophils (%) (Auto) 0.8 % Neutrophils # (Auto) 9.2 TH/MM3 Lymphocytes # (Auto) 0.6 TH/MM3 Monocytes # (Auto) 0.5 TH/MM3 Eosinophils # (Auto) 0.0 TH/MM3 Basophils # (Auto) 0.1 TH/MM3 CBC Comment AUTO DIFF Differential Comment AUTO DIFF CONFIRMED Tear Drop Cells Ovalocytes 1+ Acanthocytes 1+ Prothrombin Time 10.3 SEC Prothromb Time International 0.9 RATIO Ratio Activated Partial 32.4 SEC Thromboplast Time Sodium Level 138 MEQ/L Potassium Level 6.0 MEQ/L Chloride Level 113 MEQ/L Carbon Dioxide Level 18.1 MEQ/L Anion Gap 7 MEQ/L Blood Urea Nitrogen 36 MG/DL Creatinine 2.25 MG/DL Estimat Glomerular Filtration 37 ML/MIN Rate Random Glucose 89 MG/DL Calcium Level 8.8 MG/DL Total Bilirubin 0.3 MG/DL Aspartate Amino Transf 18 U/L (AST/SGOT) Alanine Aminotransferase 13 U/L (ALT/SGPT) Alkaline Phosphatase 92 U/L Total Protein 6.9 GM/DL Albumin 3.0 GM/DL [facility] Supervised Visit with JOHN: Yes Interpretation(s) low grade temperature hypertensive anemia potassium is hemolyzed Last 24 hours Impressions Upper Extremity Ultrasound 11/05/16 0000 Signed Impressions: Service Date/Time: October 12:43 - CONCLUSION: 1. Negative deep venous thrombosis. Positive superficial thrombosis in the left cephalic vein in patient with AV fistula. Adam Martin MD Differential Diagnosis Venous occlusion, arterial occlusion, graft occlusion Narrative Course This is a 55-year-old male who presents to the emergency department with swelling of his left arm over his AV fistula graft site. He no longer requires his graft site and he is not dialysis dependent. He does say he has a stent in it. He has an impressive amount of swelling and warmth adjacent to the left graft. Ultrasound demonstrates a clot in the superficial cephalic vein. Dr. Jackson the vascular surgeon on-call came to the bedside and evaluated the patient. He didn't feel any acute intervention was necessary. Patient was discharged with instructions for symptomatic management. Diagnosis Primary Impression: Superficial thrombophlebitis Qualified Code: I80.8 - Superficial thrombophlebitis of left upper extremity Patient Instructions: General Instructions Additional Instruction: If you develop severe chest pain, shortness of breath, sweating, lightheadedness , dizziness or difficulty breathing return to the emergency department immediately. Followup with your primary care physician in 2-3 days if your symptoms are not resolved. Med/Other Pt SpecificInfo: No Change to Meds Disposition: 01 DISCHARGE HOME Condition: Stable Karon Sheriff MD November 05, 2016 14:34
--- NOTE | 2016-11-05 15:14 | EKG ---
Date Performed: 11/05/2016 Time Performed: 13:53:27 PTAGE: 55 years EKG: Sinus rhythm SEPTAL MYOCARDIAL INFARCTION Nonspecific T wave changes COMPARED TO PRIOR ELECTROCARDIOGRAM, Possibl e septal myocardial infarction is present but could be due to changes in lead placement. Clinical co rrelation suggested. PREVIOUS TRACING : 10/31/2016 14.11 DOCTOR: Valente Mtz Interpretating Date/Time 11/05/2016 15:13:12
[2016-11-10] MEDS ORDERED: HUMALOG SQ (11:03)
[2016-11-10] MEDS ORDERED: INSU-98 (11:14)
[2016-11-19] MEDS ORDERED: PANT20 PO (09:03)
[2016-11-19] MEDS ORDERED: LEVO25TA4 PO (09:03)
[2016-11-19] MEDS ORDERED: AMLO10TA2 PO (09:03)
[2016-11-19] MEDS ORDERED: ATOR40TA16 PO (09:03)
[2016-11-19] MEDS ORDERED: METO100T9 PO (09:03)
[2016-11-19] MEDS ORDERED: LANTUS2P SQ (09:03)
[2016-11-19] MEDS ORDERED: LISI20TA3 PO (09:03)
[2016-11-19] MEDS ORDERED: HYDR-3801 PO (09:03)
[2016-12-24] MEDS ORDERED: INSU-98 (13:55)
[2016-12-24] MEDS ORDERED: LANTUS2P SQ (15:56)
[2016-12-25] MEDS ORDERED: HUMALOG SQ (16:57)
[2016-12-28] MEDS ORDERED: HUMA100I3 SQ (11:32)
== END 2016-11-05 15:05 | disposition home or self-care (01) ==
LOC: NEPC 09:17
DX: I80.8 Phlebitis and thrombophlebitis of other sites (principal); N18.6 End stage renal disease; I12.0 Hypertensive chronic kidney disease with stage 5 chronic kidney disease or end stage renal disease; E11.22 Type 2 diabetes mellitus with diabetic chronic kidney disease; E78.5 Hyperlipidemia, unspecified; Z79.4 Long term (current) use of insulin
CPT/HCPCS: 80053; 85025; 85610; 85730; 93005; 93971

== ENCOUNTER 2016-11-12 12:31 | Inpatient (IN) | payer MEDICARE, MEDICAID ==
[~2016-11-12] VITALS: Ht 180.3 cm; Wt 80.0 kg
[~2016-11-12 12:31] MED LIST changes: +INSU-98
[2016-11-12 12:33] VITALS: BP 134/71; PULSE 89; RESP 18; TEMP 98.4; O2SAT 98
--- NOTE | 2016-11-12 12:43 | PD ---
Physical Exam Time Seen by Provider: 12:38 Narrative 55yo M c/o left upper arm AV fistula pain r/t to a blood clot. Reports nausea w /o vomiting. Denies fever. Patient seen in triage Awaiting bed placement. VS reviewed. Data Data Last Documented VS Vital Signs Date Time Temp Pulse Resp B/P Pulse Ox O2 Delivery O2 Flow Rate FiO2 11/12/16 12:33 98.4 89 18 134/71 98 MDM Supervised Visit with JOHN: Cheri Murillo November 12, 2016 12:43
[2016-11-12] MEDS ORDERED: SODIUM CHLORIDE 0.9% FLUSH 10 ML FLUSH IV FLUSH PRN ×2 (13:00→16:00)
[2016-11-12] MEDS ORDERED: MORPHINE SULFATE 4 MG/ML INJ IV PUSH ONE (13:00)
--- NOTE | 2016-11-12 13:07 | PD ---
HPI Chief Complaint: Pain: Acute or Chronic Time Seen by Provider: 12:52 Travel History International Travel<30 days: No Contact w/Intl Traveler<30days: No Traveled to known affect area: No History of Present Illness HPI 55-year-old male with history of ESRD, renal transplant, here for evaluation of painful left upper extremity dialysis fistula. The patient reports that not only is her fistula, but there is also a stent in his fistula. He was here one week ago with similar symptoms, had left upper extremity ultrasound which showed superficial thrombophlebitis, was evaluated by vascular surgery, and was discharged home for outpatient follow-up. Patient reports that the pain is been going on for 2 weeks and has been worsening. He rates the pain as sharp, constant, stabbing, moderate to severe, radiates into his left chest. Patient was also admitted earlier this month for chest pain and was discharged home after 3 sets of negative enzymes and serial EKGs. PFSH Past Medical History Hx Anticoagulant Therapy: No Asthma: No Blood Disorders: No Anxiety: No Depression: No Heart Rhythm Problems: No Cancer: No Cardiac Catheterization: No Cardiovascular Problems: Yes High Cholesterol: Yes Chemotherapy: No Chest Pain: No Congestive Heart Failure: Yes COPD: No Cerebrovascular Accident: No Diabetes: Yes Patient Takes Glucophage: Yes Diminished Hearing: No Endocrine: No Genitourinary: No Hepatitis: No Hiatal Hernia: No Hypertension: Yes Immune Disorder: No Musculoskeletal: No Neurologic: No Psychiatric: No Reproductive: No Respiratory: Yes Immunizations Current: No Radiation Therapy: No Renal Failure: Yes (KIDNEY TRANSPLANT) Sleep Apnea: No Thyroid Disease: Yes Past Surgical History Abdominal Surgery: Yes (ABD AND INGUINAL HERNIA REPAIR) AICD: No Cardiac Surgery: No Coronary Artery Bypass Graft: No Ear Surgery: No Eye Surgery: No Genitourinary Surgery: Yes (KIDNEY TRSNSPLANT 2008) Gynecologic Surgery: No Joint Replacement: No Oral Surgery: No Pacemaker: No Thoracic Surgery: No Other Surgery: Yes (FISTULA LEFT UPPER ARM, kidney transplant ) Family History Family Myocardial Infarction: Yes (dad [place] 1994) Social History Alcohol Use: No Tobacco Use: No Substance Use: No Allergies-Medications (Allergen,Severity, Reaction): Coded Allergies: Banana (Verified Allergy, Severe, HIVES, 11/05/16) Beet (Verified Allergy, Severe, HIVES, 11/05/16) Pea (Verified Allergy, Severe, HIVES, 11/05/16) Latex (Verified Allergy, Unknown, 11/05/16) Uncoded Allergies: FRESH TOMATO (Allergy, Severe, 05/17/15) HIVES Reported Meds & Prescriptions Reported Meds & Active Scripts Active Carefine Pen Needle [id number] 1 Mis Mis 1 Box .ROUTE QID Humalog Inj (Insulin Human Lispro) 1,000 Unit/10 Ml Vial 4 Units SQ TID less than 70:0units;150-200: 2units; 201-250:4units;251-300: 6units; 301-350: 8units; more than 350: 12units. Zofran (Ondansetron HCl) 4 Mg Tab 4 Mg PO Q12HR PRN Protonix (Pantoprazole Sodium) 40 Mg Tab 40 Mg PO DAILY It is recommended that you do not take this medication for more than 2 weeks at a time. Metoprolol Succinate ER 24 HR (Metoprolol Succinate) 100 Mg Tab 100 Mg PO DAILY Levothyroxine (Levothyroxine Sodium) 25 Mcg Tab 25 Mcg PO DAILY Hydralazine (Hydralazine HCl) 25 Mg Tab 25 Mg PO TID Take with a meal Amlodipine (Amlodipine Besylate) 10 Mg Tab 10 Mg PO DAILY Atorvastatin (Atorvastatin Calcium) 40 Mg Tab 40 Mg PO EVERY OTHER DAY please check with your operations manager/coordinator about checking immunosuppresant levels when you go up to 40 mg daily. Lantus Inj (Insulin Glargine) 1,000 Unit/10 Ml Vial 26 Units SQ DAILY Baclofen 10 Mg Tab 10 Mg PO Q8HR PRN 7 Days Tylenol-Codeine #3 (Acetaminophen-Codeine) 300-30 mg Tab 1 Tab PO Q4H PRN Reported Fluticasone Nasal [place] 50 Mcg/Act Naspr 50 Mcg EACH NARE BID 50 mcg/spray Vitamin D (Cholecalciferol) 400 Unit/Ml Drops 400 Units PO DAILY Lisinopril 20 Mg Tab 20 Mg PO DAILY Magnesium Gluconate 500 Mg Tab 500 Mg PO DAILY Valganciclovir 450 Mg Tab 450 Mg PO DAILY Sodium Bicarbonate 650 Mg Tab 1,300 Mg PO BIDPC Prograf (Tacrolimus) 1 Mg Cap 1 Mg PO BID Mycophenolate (Mycophenolate Mofetil) 500 Mg Tab 500 Mg PO BID Deltasone (Prednisone) 20 Mg Tab 10 Mg PO DAILY Nephrocaps (B-Complex W/ C & Folic Acid) 1 Cap 1 Cap PO DAILY If on dialysis, take after treatment. Review of Systems Except as stated in HPI: all other systems reviewed are Neg Physical Exam Narrative GENERAL: Well-developed, well-nourished, comfortable, no acute distress. SKIN: Focused skin assessment warm/dry. No rash. HEAD: Atraumatic. Normocephalic. EYES: Pupils equal and round. No scleral icterus. No injection or drainage. ENT: Mucous membranes pink and moist. CARDIOVASCULAR: Regular rate and rhythm. Large left arm dialysis fistula that is pulsatile, firm to touch, diffusely tender. Bilateral distal radial pulses are brisk and equal. RESPIRATORY: No accessory muscle use. Clear to auscultation. Breath sounds equal bilaterally. MUSCULOSKELETAL: No obvious deformities. No clubbing. No cyanosis. No edema. All compartments in left upper extremity are supple. NEUROLOGICAL: Awake and alert. No obvious cranial nerve deficits. Motor grossly within normal limits. Normal speech. PSYCHIATRIC: Appropriate mood and affect; insight and judgment normal. Data Data Last Documented VS Vital Signs Date Time Temp Pulse Resp B/P Pulse Ox O2 Delivery O2 Flow Rate FiO2 11/12/16 14:24 66 15 156/93 99 Room Air 11/12/16 12:33 98.4 Orders Basic Metabolic Panel (Bmp) (11/12/16 12:56) Complete Blood Count With Diff (11/12/16 12:56) Prothrombin Time / Inr (Pt) (11/12/16 12:56) Act Partial Throm Time (Ptt) (11/12/16 12:56) Iv Access Insert/Monitor (11/12/16 12:56) Ecg Monitoring (11/12/16 12:56) Oximetry (11/12/16 12:56) Morphine Inj (Morphine Inj) (11/12/16 13:00) Sodium Chloride 0.9% Flush (Ns Flush) (11/12/16 13:00) Electrocardiogram (11/12/16 ) Us Arm Venous Doppler (11/12/16 ) Sodium Polysty Sulfate Liq (Kayexalate L (11/12/16 14:30) Invasive Rad Dept Consult (11/12/16 ) Labs Laboratory Tests Test 11/12/16 13:15 White Blood Count 10.7 TH/MM3 Red Blood Count 4.47 MIL/MM3 Hemoglobin 10.4 GM/DL Hematocrit 34.1 % Mean Corpuscular Volume 76.4 FL Mean Corpuscular Hemoglobin 23.2 PG Mean Corpuscular Hemoglobin 30.4 % Concent Red Cell Distribution Width 16.0 % Platelet Count 304 TH/MM3 Mean Platelet Volume 8.4 FL Neutrophils (%) (Auto) 86.4 % Lymphocytes (%) (Auto) 5.6 % Monocytes (%) (Auto) 7.3 % Eosinophils (%) (Auto) 0.3 % Basophils (%) (Auto) 0.4 % Neutrophils # (Auto) 9.2 TH/MM3 Lymphocytes # (Auto) 0.6 TH/MM3 Monocytes # (Auto) 0.8 TH/MM3 Eosinophils # (Auto) 0.0 TH/MM3 Basophils # (Auto) 0.0 TH/MM3 CBC Comment DIFF FINAL Differential Comment Prothrombin Time 10.3 SEC Prothromb Time International 0.9 RATIO Ratio Activated Partial 30.1 SEC Thromboplast Time Sodium Level 137 MEQ/L Potassium Level 5.8 MEQ/L Chloride Level 109 MEQ/L Carbon Dioxide Level 18.6 MEQ/L Anion Gap 9 MEQ/L Blood Urea Nitrogen 39 MG/DL Creatinine 2.50 MG/DL Estimat Glomerular Filtration 33 ML/MIN Rate Random Glucose 174 MG/DL Calcium Level 9.0 MG/DL MDM Medical Decision Making Medical Screen Exam Complete: Yes Emergency Medical Condition: Yes Differential Diagnosis Thrombophlebitis, DVT, compartment syndrome unlikely Narrative Course Vital signs show heart rate 89, blood pressure 134/71, pulse ox 98% on room air , oral temp of 98.4F. CBC shows WBC 10.7, hemoglobin 10.4, hematocrit 34.1, platelets 304, neutrophils 86.4%. BMP is remarkable for potassium 5.8, bicarbonate 18.6, BUN 39, creatinine 2.5, GFR 33. Case discussed with the patient's operations manager/coordinator Dr. 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 States that there is nothing acute going on today regarding this and recommends giving the patient a dose of Kayexalate. Vascular surgeon Dr. Ivey evaluated the patient at the bedside. Coincidentally, left upper extremity venous duplex was being performed at the same time. He reports that the patient has basilic vein thrombosis which is a superficial vein, no evidence for DVT. He is concerned about the patient's ongoing pain and has ordered a fistulogram to be done by interventional radiology. The patient be admitted for overnight observation for pain control, fistulogram, vascular surgery reassessment. The patient is amenable to this plan. Case discussed with center medical director Dr. Tarango. The patient will be admitted to their service under Dr. Madrigal. Diagnosis Primary Impression: Left arm pain Additional Impressions: Superficial thrombophlebitis Qualified Code: I80.8 - Superficial thrombophlebitis of left upper extremity Hyperkalemia Chronic renal insufficiency Qualified Code: N18.9 - Chronic renal insufficiency, unspecified stage Admitting Information Admitting Physician Requests: Observation Asim Frost MD November 12, 2016 13:07
[2016-11-12 13:31] LABS: AUTOMATED NEUTROPHIL # 9.2 TH/MM3 (1.8-7.7); BASOPHIL % 0.4 % (0.0-2.0); EOSINOPHIL % 0.3 % (0.0-4.0); HEMATOCRIT 34.1 % (39.0-51.0); HEMO FLAGS DIFF FINAL; LYMPH % 5.6 % (9.0-44.0); LYMPHOCYTE # 0.6 TH/MM3 (1.0-4.8); MEAN CELL VOLUME 76.4 FL (80.0-100.0); MEAN CORPUSCULAR HEMOGLOBIN 23.2 PG (27.0-34.0); MEAN CORPUSCULAR HGB CONC 30.4 % (32.0-36.0); MONO % 7.3 % (0.0-8.0); NEUT % 86.4 % (16.0-70.0); PLATELET COUNT 304 TH/MM3 (150-450); RED BLOOD COUNT 4.47 MIL/MM3 (4.50-5.90); WHITE BLOOD COUNT 10.7 TH/MM3 (4.0-11.0)
[2016-11-12 13:44] LABS: APTT (PATIENT) 30.1 SEC (24.3-30.1); INTERNATIONAL NORMALIZED RATIO 0.9 RATIO; PROTHROMBIN TIME - PATIENT 10.3 SEC (9.8-11.6)
[2016-11-12 13:59] LABS: BICARBONATE 18.6 MEQ/L (21.0-32.0); POTASSIUM 5.8 MEQ/L (3.5-5.1)
[2016-11-12 14:24] VITALS: BP 156/93; PULSE 66; RESP 15; O2SAT 99
[2016-11-12] MEDS ORDERED: SODIUM POLYSTYRENE SULFONATE SUSP 15 GM/60 ML CUP PO ONE (14:30)
--- NOTE | 2016-11-12 15:11 | PD.CAR.PN ---
CVT Progress Note Subjective/Hospital Course: Patient comes back several days afterward been here already for a painful left upper arm AV fistula. Fistula has not been used in about 2 years but patient states that he has pain at this time Patient has excellent bruit in the fistula and excellent pulse. My fear is that patient might have occluded part of the outflow of the fistula and therefore this is now getting distended and becoming painful Ultrasound reveals normal flow through fistula but occlusion of the cephalic vein Considering the patient has a continuous flow through his fistula not sure of the cephalic vein was part of the flow at some point or not I believe this point is safest to simply admit the patient and go ahead with a formal fistulogram contrast study to see which she weighs which part of this fistula turned and going and if there is any outflow obstruction Outflow obstruction could lead to pain because of the pressure of arterial blood coming in The hand is nice and warm well perfused and pulses are normal We'll place consult interventional radiology Objective: Vital Signs Date Time Temp Pulse Resp B/P Pulse Ox O2 Delivery O2 Flow Rate FiO2 11/12/16 14:24 66 15 156/93 99 Room Air 11/12/16 13:36 15 11/12/16 12:33 98.4 89 18 134/71 98 Labs: Laboratory Tests Test 11/12/16 13:15 White Blood Count 10.7 TH/MM3 (4.0-11.0) Red Blood Count 4.47 MIL/MM3 (4.50-5.90) Hemoglobin 10.4 GM/DL (13.0-17.0) Hematocrit 34.1 % (39.0-51.0) Mean Corpuscular Volume 76.4 FL (80.0-100.0) Mean Corpuscular Hemoglobin 23.2 PG (27.0-34.0) Mean Corpuscular Hemoglobin 30.4 % Concent (32.0-36.0) Red Cell Distribution Width 16.0 % (11.6-17.2) Platelet Count 304 TH/MM3 (150-450) Mean Platelet Volume 8.4 FL (7.0-11.0) Neutrophils (%) (Auto) 86.4 % (16.0-70.0) Lymphocytes (%) (Auto) 5.6 % (9.0-44.0) Monocytes (%) (Auto) 7.3 % (0.0-8.0) Eosinophils (%) (Auto) 0.3 % (0.0-4.0) Basophils (%) (Auto) 0.4 % (0.0-2.0) Neutrophils # (Auto) 9.2 TH/MM3 (1.8-7.7) Lymphocytes # (Auto) 0.6 TH/MM3 (1.0-4.8) Monocytes # (Auto) 0.8 TH/MM3 (0-0.9) Eosinophils # (Auto) 0.0 TH/MM3 (0-0.4) Basophils # (Auto) 0.0 TH/MM3 (0-0.2) CBC Comment DIFF FINAL Differential Comment Prothrombin Time 10.3 SEC (9.8-11.6) Prothromb Time International 0.9 RATIO Ratio Activated Partial 30.1 SEC Thromboplast Time (24.3-30.1) Sodium Level 137 MEQ/L (136-145) Potassium Level 5.8 MEQ/L (3.5-5.1) Chloride Level 109 MEQ/L (98-107) Carbon Dioxide Level 18.6 MEQ/L (21.0-32.0) Anion Gap 9 MEQ/L (5-15) Blood Urea Nitrogen 39 MG/DL (7-18) Creatinine 2.50 MG/DL (0.60-1.30) Estimat Glomerular Filtration 33 ML/MIN (>89) Rate Random Glucose 174 MG/DL (74-106) Calcium Level 9.0 MG/DL (8.5-10.1) Result Diagram: 11/12/16 1315 11/12/16 1315 Mustapha Ivey MD November 12, 2016 15:11
--- NOTE | 2016-11-12 15:44 | HHI.HP ---
[facility] Service Family Medicine Primary Care Physician Kiera Cesar MD Admission Diagnosis superficial thrombophlebitis, left arm pain, hyperkalemia, CKD Diagnoses: International Travel<30 Days: No Contact w/Intl Traveler<30days: No Known Affected Area: No History of Present Illness This a 55-year-old -[place]ron[place] male with history of renal transplant, diabetes mellitus, hypertension, hyperlipidemia, and hypothyroidism. He is worked up one week ago for pain in his left arm and causes believed to be due to superficial thrombophlebitis where his fistula is located. Also was done at that time that showed no DVTs however the superficial thrombosis was present in the left cephalic vein. Vascular surgery was consulted at that time and no acute intervention was felt to be necessary. He was discharged home with plans to follow-up as an outpatient. His arm continued to hurt throughout the next week. He describes the pain as a constant pressure with occasional sharp pains. The pain is located where his fistula is. He says that Tylenol and hot water help some with the pain. Prior to being evaluated today the vascular surgeon and already seen him ultrasound was redone and occlusion of the fistula and cephalic vein was seen. Patient was told the plan to admit to observation for a fistulogram to be performed by IR and he agreed with this. (Hardeep Tarango MD R2) Review of Systems Constitutional: DENIES: Fatigue, Fever, Weight loss, Change in appetite Endocrine: DENIES: Polyuria Eyes: DENIES: Blurred vision, Eye inflammation, Eye pain, Vision loss, Double Vision Ears, nose, mouth, throat: DENIES: Hearing loss, Nasal discharge, Throat pain, Hoarseness, Running Nose, Sinus Pain Respiratory: DENIES: Cough, Wheezing, Sputum production, Shortness of breath Cardiovascular: DENIES: Chest pain, Dyspnea on Exertion, Lower Extremity Edema Gastrointestinal: DENIES: Abdominal pain, Bloody stools, Constipation, Nausea, Vomiting Genitourinary: DENIES: Urinary frequency, Urinary incontinence Musculoskeletal: COMPLAINS OF: Muscle aches, DENIES: Joint pain, Stiffness, Joint Swelling, Back pain, Neck pain Integumentary: DENIES: Nail changes, Rash Hematologic/lymphatic: DENIES: Bruising Neurologic: DENIES: Abnormal gait, Headache, Seizures, Poor Balance Psychiatric: DENIES: Anxiety, Confusion, Depression (Hardeep Tarango MD R2) Past Family Social History Past Medical History Renal transplant recipient 2008 Diabetes mellitus 2008 Diarrhea recurrent 2015. ESRD (end stage renal disease) due to high blood pressure. (2008). Hypertension 2008 Hypothyroidism Past Surgical History hernia repair x2 (inguinal and umbilical) ACL repair Kidney transplant Reported Medications Reported Meds & Active Scripts Active Carefine Pen Needle [id number] 1 Mis Mis 1 Box .ROUTE QID Humalog Inj (Insulin Human Lispro) 1,000 Unit/10 Ml Vial 4 Units SQ TID less than 70:0units;150-200: 2units; 201-250:4units;251-300: 6units; 301-350: 8units; more than 350: 12units. Zofran (Ondansetron HCl) 4 Mg Tab 4 Mg PO Q12HR PRN Protonix (Pantoprazole Sodium) 40 Mg Tab 40 Mg PO DAILY It is recommended that you do not take this medication for more than 2 weeks at a time. Metoprolol Succinate ER 24 HR (Metoprolol Succinate) 100 Mg Tab 100 Mg PO DAILY Levothyroxine (Levothyroxine Sodium) 25 Mcg Tab 25 Mcg PO DAILY Hydralazine (Hydralazine HCl) 25 Mg Tab 25 Mg PO TID Take with a meal Amlodipine (Amlodipine Besylate) 10 Mg Tab 10 Mg PO DAILY Atorvastatin (Atorvastatin Calcium) 40 Mg Tab 40 Mg PO EVERY OTHER DAY please check with your external relations manager about checking immunosuppresant levels when you go up to 40 mg daily. Lantus Inj (Insulin Glargine) 1,000 Unit/10 Ml Vial 26 Units SQ DAILY Baclofen 10 Mg Tab 10 Mg PO Q8HR PRN 7 Days Tylenol-Codeine #3 (Acetaminophen-Codeine) 300-30 mg Tab 1 Tab PO Q4H PRN Reported Fluticasone Nasal [place] 50 Mcg/Act Naspr 50 Mcg EACH NARE BID 50 mcg/spray Vitamin D (Cholecalciferol) 400 Unit/Ml Drops 400 Units PO DAILY Lisinopril 20 Mg Tab 20 Mg PO DAILY Magnesium Gluconate 500 Mg Tab 500 Mg PO DAILY Valganciclovir 450 Mg Tab 450 Mg PO DAILY Sodium Bicarbonate 650 Mg Tab 1,300 Mg PO BIDPC Prograf (Tacrolimus) 1 Mg Cap 1 Mg PO BID Mycophenolate (Mycophenolate Mofetil) 500 Mg Tab 500 Mg PO BID Deltasone (Prednisone) 20 Mg Tab 10 Mg PO DAILY Nephrocaps (B-Complex W/ C & Folic Acid) 1 Cap 1 Cap PO DAILY If on dialysis, take after treatment. (Hardeep Tarango MD R2) Allergies: Coded Allergies: Banana (Verified Allergy, Severe, HIVES, 11/05/16) Beet (Verified Allergy, Severe, HIVES, 11/05/16) Pea (Verified Allergy, Severe, HIVES, 11/05/16) Latex (Verified Allergy, Unknown, 11/05/16) Uncoded Allergies: FRESH TOMATO (Allergy, Severe, 05/17/15) HIVES Family History DM MS HTN Social History Live in [place] in an Apartment with and grandson Disability No pets Denies smoking Denies alcohol last drink 12 years ago Denies illicit drugs las used 12 years ago (Hardeep Tarango MD R2) Physical Exam Vital Signs Vital Signs Date Time Temp Pulse Resp B/P Pulse Ox O2 Delivery O2 Flow Rate FiO2 11/12/16 14:24 66 15 156/93 99 Room Air 11/12/16 13:36 15 11/12/16 12:33 98.4 89 18 134/71 98 Physical Exam GENERAL: Well-developed, well-nourished, comfortable, no acute distress. SKIN: Focused skin assessment warm/dry. No rash. HEAD: Atraumatic. Normocephalic. EYES: Pupils equal and round. No scleral icterus. No injection or drainage. ENT: Mucous membranes pink and moist. CARDIOVASCULAR: Regular rate and rhythm. Large left arm dialysis fistula that is pulsatile, firm to touch, diffusely tender. Bilateral distal radial pulses are brisk and equal. RESPIRATORY: No accessory muscle use. Clear to auscultation. Breath sounds equal bilaterally. MUSCULOSKELETAL: No obvious deformities. No clubbing. No cyanosis. No edema. All compartments in left upper extremity are supple. NEUROLOGICAL: Awake and alert. No obvious cranial nerve deficits. Motor grossly within normal limits. Normal speech. PSYCHIATRIC: Appropriate mood and affect; insight and judgment normal. Laboratory Laboratory Tests Test 11/12/16 13:15 White Blood Count 10.7 Red Blood Count 4.47 Hemoglobin 10.4 Hematocrit 34.1 Mean Corpuscular Volume 76.4 Mean Corpuscular Hemoglobin 23.2 Mean Corpuscular Hemoglobin 30.4 Concent Red Cell Distribution Width 16.0 Platelet Count 304 Mean Platelet Volume 8.4 Neutrophils (%) (Auto) 86.4 Lymphocytes (%) (Auto) 5.6 Monocytes (%) (Auto) 7.3 Eosinophils (%) (Auto) 0.3 Basophils (%) (Auto) 0.4 Neutrophils # (Auto) 9.2 Lymphocytes # (Auto) 0.6 Monocytes # (Auto) 0.8 Eosinophils # (Auto) 0.0 Basophils # (Auto) 0.0 CBC Comment DIFF FINAL Differential Comment Prothrombin Time 10.3 Prothromb Time International 0.9 Ratio Activated Partial 30.1 Thromboplast Time Sodium Level 137 Potassium Level 5.8 Chloride Level 109 Carbon Dioxide Level 18.6 Anion Gap 9 Blood Urea Nitrogen 39 Creatinine 2.50 Estimat Glomerular Filtration 33 Rate Random Glucose 174 Calcium Level 9.0 (Hardeep Tarango MD R2) Result Diagram: 11/12/16 1315 11/12/16 1315 Imaging Last Impressions Upper Extremity Ultrasound 11/12/16 0000 Signed Impressions: Service Date/Time: October 14:40 - CONCLUSION: 1. Occlusion of the fistula and cephalic vein Rikki Hernandez MD (Hardeep Tarango MD R2) Assessment and Plan Assessment and Plan This a 55-year-old -Micronesian male with history of renal transplant, diabetes mellitus, hypertension, hyperlipidemia, and hypothyroidism. Being admitted to observation for superficial thrombophlebitis Code Status Full code Discussed Condition With WDW: Dr. Madrigal (Hardeep Tarango MD R2) Attending Attestation THIS CASE WAS DISCUSSED WITH THE RESIDENT PHYSICIAN. I HAVE REVIEWED THE RECORD AND AGREE WITH THE ABOVE NOTE AND PLAN OF CARE WAS DISCUSSED. I HAVE AUTHORIZED THE ORDER FOR PLACEMENT IN OUT-PATIENT OBSERVATION STATUS. (Octaviano Madrigal MD) Problem List: (1) Superficial thrombophlebitis Status: Acute Plan: Patient found to have an occlusion of the fistula and cephalic vein of his left arm. This is causing severe pain for the patient. It is only slightly tolerable with the Tylenol 3 and warm compresses. * Admit to observation * Vascular surgery consulted, recommendations are appreciated * Fistulogram ordered, to be performed by IR * Pain control with Tylenol 3 * Heat pads to the area of pain * CBC, BMP ordered for the a.m. (2) Chronic renal insufficiency Status: Acute Plan: Patient is status post kidney transplant, no longer on dialysis, kidney rejection. Currently hyperkalemic at 5.8 * Nephrology consulted, recommendations appreciated * Per nephrology on time dose of Kayexalate due to the hyperkalemia as this is chronic * Continue Tacrolimus * Continue Mycophenolate (3) Diabetes mellitus Status: Chronic Plan: Long-standing history of type 2 diabetes. * Continue Levemir 26 units * Insulin sliding scale per protocol * Blood glucoses per protocol (4) Hypertension Status: Chronic Plan: Long-standing history of hypertension * Continue lisinopril * Continue hydralazine * Continue amlodipine * Clonidine per elevated blood pressure protocol (5) Nutrition, metabolism, and development symptoms Status: Acute Plan: Activity: Out of bed ad catrina. Fluids: Adequate oral intake Diet: Renal diet On telemetry Vitals every 4 SCDs and heparin for DVT prophylaxis GI prophylaxis with Protonix CODE STATUS: Full code Disposition: Pending results of fistulogram (Hardeep Tarango MD R2) Problem Qualifiers (1) Superficial thrombophlebitis: Qualified Code: I80.8 - Superficial thrombophlebitis of left upper extremity (2) Chronic renal insufficiency: Qualified Code: N18.9 - Chronic renal insufficiency, unspecified stage (3) Diabetes mellitus: Qualified Code: E11.22 - Type 2 diabetes mellitus with stage 5 chronic kidney disease not on chronic dialysis, with long-term current use of insulin Hardeep Tarango MD R2 November 12, 2016 15:43 Octaviano Madrigal MD November 13, 2016 13:14
--- NOTE | 2016-11-12 15:48 | RADRPT ---
EXAM DATE/TIME: 11/12/2016 14:40 [facility] COMPARISON: US ARM LEFT VENOUS DOPPLER, November 05, 2016, 12:43. INDICATIONS : Left arm swelling and pain. MEDICAL HISTORY : Hypercholesterolemia. Hypertension. Congestive heart failure. Hyperlipidemia. Chlamydia. Mumps. Renal failure. Diabetes. SURGICAL HISTORY : Kidney transplant. Left ACL repair. Inguinal hernia. AV fistula, left arm. ENCOUNTER: Initial ACUITY: 2 weeks PAIN SCORE: 7/10 LOCATION: Left arm. FINDINGS: There is occlusion of the fistula as well as of the outflow vein. The cephalic vein is occluded throu ghout its course. The brachial artery proximal to the fistula is patent. CONCLUSION: 1. Occlusion of the fistula and cephalic vein Rikki Hernandez MD on November 12, 2016 at 15:45 Board Certified Radiologist. This report was verified electronically.
[2016-11-12] MEDS ORDERED: GLUCAGON 1 MG/ML VIAL OTHER PRN (16:00)
[2016-11-12] MEDS ORDERED: cloNIDine HCL 0.1 MG TAB PO PRN (16:00)
[2016-11-12] MEDS ORDERED: ONDANSETRON HCL 4 MG/2 ML VIAL IVP PRN (16:00)
[2016-11-12] MEDS ORDERED: ZOLPIDEM TARTRATE 5 MG TAB PO PRN (16:00)
[2016-11-12] MEDS ORDERED: DEXTROSE 50% IN WATER 50 ML VIAL(D50) IV PRN (16:00)
[2016-11-12] MEDS ORDERED: NALOXONE HCL 0.4 MG/ML AMP IV PRN (16:00)
[2016-11-12] MEDS: HEPARIN SODIUM - SQ 10,000 UNITS/ML VIAL SQ SCH (16:00)
[2016-11-12] MEDS: INSULIN ASPART SUPPLEMENTAL SCALE SQ SCH ×2 (16:29→21:00)
[2016-11-12 17:23] VITALS: BP 158/95; PULSE 70; RESP 18; TEMP 98; O2SAT 96
[2016-11-12] MEDS: MYCOPHENOLATE MOFETIL 500 MG TAB PO SCH (17:54)
[2016-11-12] MEDS: hydrALAZINE HCL 25 MG TAB PO SCH (17:54)
[2016-11-12] MEDS: ACETAMINOPHEN/CODEINE 300 MG/30 MG TAB PO PRN (18:14)
--- NOTE | 2016-11-12 19:09 | PD.CONS ---
HPI Service Nephrology Consult Requested By Dr. Tarango Reason for Consult Kidney transplant Primary Care Physician Kiera Cesar MD History of Present Illness Patient is a 55-year-old male with history of kidney transplant in 2008 with failing allograft, diabetic nephropathy on last biopsy , chronic rejection patient has elevated creatinine 2.5 and potassium was 5.8 he has developed increasing swelling over the AV fistula and it was painful this is his second visit to the emergency seen by Dr. Ivey Review of Systems Constitutional: COMPLAINS OF: Fatigue Musculoskeletal: COMPLAINS OF: Joint pain, Muscle aches Past Family Social History Allergies: Coded Allergies: Banana (Verified Allergy, Severe, HIVES, 11/05/16) Beet (Verified Allergy, Severe, HIVES, 11/05/16) Pea (Verified Allergy, Severe, HIVES, 11/05/16) Latex (Verified Allergy, Unknown, 11/05/16) Uncoded Allergies: FRESH TOMATO (Allergy, Severe, 05/17/15) HIVES Past Medical History Renal transplant recipient 2008 Diabetes mellitus 2008 Diarrhea recurrent 2014. ESRD (end stage renal disease) due to high blood pressure. (2008). Hypertension 2008 Hypothyroidism Past Surgical History AV fistula hernia repair ACL repair Kidney transplant Reported Medications Reported Meds & Active Scripts Active Carefine Pen Needle [id number] 1 Mis Mis 1 Box .ROUTE QID Humalog Inj (Insulin Human Lispro) 1,000 Unit/10 Ml Vial 4 Units SQ TID less than 70:0units;150-200: 2units; 201-250:4units;251-300: 6units; 301-350: 8units; more than 350: 12units. Zofran (Ondansetron HCl) 4 Mg Tab 4 Mg PO Q12HR PRN Protonix (Pantoprazole Sodium) 40 Mg Tab 40 Mg PO DAILY It is recommended that you do not take this medication for more than 2 weeks at a time. Metoprolol Succinate ER 24 HR (Metoprolol Succinate) 100 Mg Tab 100 Mg PO DAILY Levothyroxine (Levothyroxine Sodium) 25 Mcg Tab 25 Mcg PO DAILY Hydralazine (Hydralazine HCl) 25 Mg Tab 25 Mg PO TID Take with a meal Amlodipine (Amlodipine Besylate) 10 Mg Tab 10 Mg PO DAILY Atorvastatin (Atorvastatin Calcium) 40 Mg Tab 40 Mg PO EVERY OTHER DAY please check with your residential collections about checking immunosuppresant levels when you go up to 40 mg daily. Lantus Inj (Insulin Glargine) 1,000 Unit/10 Ml Vial 26 Units SQ DAILY Baclofen 10 Mg Tab 10 Mg PO Q8HR PRN 7 Days Tylenol-Codeine #3 (Acetaminophen-Codeine) 300-30 mg Tab 1 Tab PO Q4H PRN Reported Fluticasone Nasal [place] 50 Mcg/Act Naspr 50 Mcg EACH NARE BID 50 mcg/spray Vitamin D (Cholecalciferol) 400 Unit/Ml Drops 400 Units PO DAILY Lisinopril 20 Mg Tab 20 Mg PO DAILY Magnesium Gluconate 500 Mg Tab 500 Mg PO DAILY Valganciclovir 450 Mg Tab 450 Mg PO DAILY Sodium Bicarbonate 650 Mg Tab 1,300 Mg PO BIDPC Prograf (Tacrolimus) 1 Mg Cap 1 Mg PO BID Mycophenolate (Mycophenolate Mofetil) 500 Mg Tab 500 Mg PO BID Deltasone (Prednisone) 20 Mg Tab 10 Mg PO DAILY Nephrocaps (B-Complex W/ C & Folic Acid) 1 Cap 1 Cap PO DAILY If on dialysis, take after treatment. Active Ordered Medications Current Medications Medications (Trade) Dose Ordered Sig/Yasmany Route Start Time Stop Time Status Last Admin (NS Flush) 2 ml UNSCH PRN IV FLUSH 11/12/16 16:00 (NS Flush) 2 ml BID IV FLUSH 11/12/16 21:00 (Zofran Inj) 4 mg Q6H PRN IVP 11/12/16 16:00 (Colace) 100 mg Q12HR PO 11/12/16 21:00 (Ambien) 5 mg HS PRN PO 11/12/16 16:00 (Heparin Inj) 5,000 units Q8H SQ 11/12/16 16:00 (Narcan Inj) 0.4 mg UNSCH PRN IV 11/12/16 16:00 (D50w (Vial) Inj) 50 ml UNSCH PRN IV 11/12/16 16:00 (Glucagon Inj) 1 mg UNSCH PRN OTHER 11/12/16 16:00 (Catapres) 0.1 mg Q6H PRN PO 11/12/16 16:00 (Norvasc) 10 mg DAILY PO 11/13/16 09:00 (Apresoline) 25 mg TID PO 11/12/16 18:00 11/12/16 17:54 (Levemir Inj) 26 units DAILY SQ 11/13/16 09:00 (Synthroid) 25 mcg DAILY@0600 PO 11/13/16 06:00 (Prinivil) 20 mg DAILY PO 11/13/16 09:00 (Cellcept) 500 mg BID@06,18 PO 11/12/16 18:00 11/12/16 17:54 (Protonix) 40 mg DAILY PO 11/13/16 09:00 (Deltasone) 10 mg DAILY PO 11/13/16 09:00 (Prograf) 1 mg BID PO 11/12/16 21:00 (Valcyte) 450 mg DAILY PO 11/13/16 09:00 (Vitamin D3) 400 units DAILY PO 11/13/16 09:00 (Mag-Ox) 400 mg DAILY PO 11/13/16 09:00 (Toprol Xl) 100 mg DAILY PO 11/13/16 09:00 (Tylenol-Codeine #3) 1 tab Q4H PRN PO 11/12/16 17:15 11/12/16 18:14 Family History Noncontributory Social History Denies smoking or alcohol Physical Exam Vital Signs Vital Signs Date Time Temp Pulse Resp B/P Pulse Ox O2 Delivery O2 Flow Rate FiO2 11/12/16 17:23 98.0 70 18 158/95 96 11/12/16 14:24 66 15 156/93 99 Room Air 11/12/16 13:36 15 11/12/16 12:33 98.4 89 18 134/71 98 Physical Exam GENERAL: Well-nourished, well-developed patient. SKIN: Warm and dry. HEAD: Normocephalic. EYES: No scleral icterus. No injection or drainage. NECK: Supple, trachea midline. No JVD or lymphadenopathy. CARDIOVASCULAR: Regular rate and rhythm without murmurs, gallops, or rubs. RESPIRATORY: Breath sounds equal bilaterally. No accessory muscle use. GASTROINTESTINAL: Abdomen soft, non-tender, nondistended. EXTREMITIES: No cyanosis, or edema. There is fistula left arm which is swollen and tender NEUROLOGICAL: Awake, alert, and oriented x 3. Non-focal. Laboratory Laboratory Tests Test 11/12/16 13:15 White Blood Count 10.7 Red Blood Count 4.47 Hemoglobin 10.4 Hematocrit 34.1 Mean Corpuscular Volume 76.4 Mean Corpuscular Hemoglobin 23.2 Mean Corpuscular Hemoglobin 30.4 Concent Red Cell Distribution Width 16.0 Platelet Count 304 Mean Platelet Volume 8.4 Neutrophils (%) (Auto) 86.4 Lymphocytes (%) (Auto) 5.6 Monocytes (%) (Auto) 7.3 Eosinophils (%) (Auto) 0.3 Basophils (%) (Auto) 0.4 Neutrophils # (Auto) 9.2 Lymphocytes # (Auto) 0.6 Monocytes # (Auto) 0.8 Eosinophils # (Auto) 0.0 Basophils # (Auto) 0.0 CBC Comment DIFF FINAL Differential Comment Prothrombin Time 10.3 Prothromb Time International 0.9 Ratio Activated Partial 30.1 Thromboplast Time Sodium Level 137 Potassium Level 5.8 Chloride Level 109 Carbon Dioxide Level 18.6 Anion Gap 9 Blood Urea Nitrogen 39 Creatinine 2.50 Estimat Glomerular Filtration 33 Rate Random Glucose 174 Calcium Level 9.0 Result Diagram: 11/12/16 1315 11/12/16 1315 Assessment and Plan Problem List: (1) Renal transplant recipient Plan: Patient is on immunosuppressive medication with chronic allograft dysfunction with diabetic nephropathy on prednisone 10 mg a day, Prograf 5 mg twice a day and CellCept 500 twice a day Discontinue any invasive procedures using dye due to poor kidney function (2) AV fistula occlusion Plan: Ultrasound showed complete outflow occlusion and discussed with Dr. Flood who recommended conservative approach (3) DM (diabetes mellitus) Plan: Continue to monitor (4) CKD (chronic kidney disease) stage 3, GFR 30-59 ml/min Plan: Patient has hyperkalemia and continue to monitor (5) Hyperkalemia Plan: Kayexalate given Chito Pereira MD November 12, 2016 19:09
--- NOTE | 2016-11-12 19:19 | PD.CAR.PN ---
CVT Progress Note Subjective/Hospital Course: Patient comes back several days afterward been here already for a painful left upper arm AV fistula. Fistula has not been used in about 2 years but patient states that he has pain at this time Patient has excellent bruit in the fistula and excellent pulse. My fear is that patient might have occluded part of the outflow of the fistula and therefore this is now getting distended and becoming painful Ultrasound reveals normal flow through fistula but occlusion of the cephalic vein Considering the patient has a continuous flow through his fistula not sure of the cephalic vein was part of the flow at some point or not I believe this point is safest to simply admit the patient and go ahead with a formal fistulogram contrast study to see which she weighs which part of this fistula turned and going and if there is any outflow obstruction Outflow obstruction could lead to pain because of the pressure of arterial blood coming in The hand is nice and warm well perfused and pulses are normal We'll place consult interventional radiology 11/12/16 I reviewed the duplex ultrasound of the fistula tract and left upper arm Patient is excellent flow in the brachial artery and then the blood goes into this fistula however there is no outflow due to obliteration of the cephalic vein Hence patient has increased amount of pain for this is basically blind recess at this point I could go ahead and close the fistula but it is point if patient is not too much in discomfort because of this I'll probably leave it alone I'll discuss this with the patient and explained the risks and benefits of surgical versus nonsurgical approach Objective: Vital Signs Date Time Temp Pulse Resp B/P Pulse Ox O2 Delivery O2 Flow Rate FiO2 11/12/16 17:23 98.0 70 18 158/95 96 11/12/16 14:24 66 15 156/93 99 Room Air 11/12/16 13:36 15 11/12/16 12:33 98.4 89 18 134/71 98 Labs: Laboratory Tests Test 11/12/16 13:15 White Blood Count 10.7 TH/MM3 (4.0-11.0) Red Blood Count 4.47 MIL/MM3 (4.50-5.90) Hemoglobin 10.4 GM/DL (13.0-17.0) Hematocrit 34.1 % (39.0-51.0) Mean Corpuscular Volume 76.4 FL (80.0-100.0) Mean Corpuscular Hemoglobin 23.2 PG (27.0-34.0) Mean Corpuscular Hemoglobin 30.4 % Concent (32.0-36.0) Red Cell Distribution Width 16.0 % (11.6-17.2) Platelet Count 304 TH/MM3 (150-450) Mean Platelet Volume 8.4 FL (7.0-11.0) Neutrophils (%) (Auto) 86.4 % (16.0-70.0) Lymphocytes (%) (Auto) 5.6 % (9.0-44.0) Monocytes (%) (Auto) 7.3 % (0.0-8.0) Eosinophils (%) (Auto) 0.3 % (0.0-4.0) Basophils (%) (Auto) 0.4 % (0.0-2.0) Neutrophils # (Auto) 9.2 TH/MM3 (1.8-7.7) Lymphocytes # (Auto) 0.6 TH/MM3 (1.0-4.8) Monocytes # (Auto) 0.8 TH/MM3 (0-0.9) Eosinophils # (Auto) 0.0 TH/MM3 (0-0.4) Basophils # (Auto) 0.0 TH/MM3 (0-0.2) CBC Comment DIFF FINAL Differential Comment Prothrombin Time 10.3 SEC (9.8-11.6) Prothromb Time International 0.9 RATIO Ratio Activated Partial 30.1 SEC Thromboplast Time (24.3-30.1) Sodium Level 137 MEQ/L (136-145) Potassium Level 5.8 MEQ/L (3.5-5.1) Chloride Level 109 MEQ/L (98-107) Carbon Dioxide Level 18.6 MEQ/L (21.0-32.0) Anion Gap 9 MEQ/L (5-15) Blood Urea Nitrogen 39 MG/DL (7-18) Creatinine 2.50 MG/DL (0.60-1.30) Estimat Glomerular Filtration 33 ML/MIN (>89) Rate Random Glucose 174 MG/DL (74-106) Calcium Level 9.0 MG/DL (8.5-10.1) Result Diagram: 11/12/16 1315 11/12/16 1315 Mustapha Ivey MD November 12, 2016 19:19
[2016-11-12 19:23] VITALS: BP 140/85; PULSE 65; RESP 20; TEMP 98.3; O2SAT 98
[2016-11-12 20:09] VITALS: PULSE 66
[2016-11-12] MEDS ORDERED: TACROLIMUS 1 MG CAP PO SCH (21:00)
[2016-11-12] MEDS: DOCUSATE SODIUM 100 MG CAP PO SCH (21:00)
[2016-11-12] MEDS: SODIUM CHLORIDE 0.9% FLUSH 10 ML FLUSH IV FLUSH SCH (21:29)
--- NOTE | 2016-11-12 21:38 | MB ---
cc: MUSTAPHA TONY MD DATE OF CONSULTATION 11/12/16 REASON FOR CONSULTATION Painful left upper arm fistula, chronic renal failure. HISTORY OF PRESENT ILLNESS This 55-year-old male with end-stage renal disease who is on dialysis comes here for evaluation of painful left upper extremity dialysis fistula site. The patient has been seen here a few weeks ago with the same problem, but now it is getting worse. Apparently this fistula as stated had been there for a long time, had been revised several times and somebody allegedly even placed a graft in there. At this point, I ordered ultrasound and the ultrasound reveals occlusion of the outflow from the fistula with patent brachial artery. Question arises where to go from here. PAST MEDICAL HISTORY 1. coronary artery disease, 2. Hypercholesteremia, 3. Diabetes mellitus. 4. Chest pain. 5. End-stage renal failure PAST SURGICAL HISTORY 1. Renal transplant in 2008 which is now slowly failing 2. Fistula in the upper arm with multiple revisions in 2008. SOCIAL HISTORY The patient does not smoke or drink. ALLERGIES He has several allergies. MEDICATIONS Can be found on the record. PHYSICAL EXAMINATION GENERAL: A pleasant 55-year-old male. HEENT:; normocephalic. No trauma to the head. Pupils equally reactive. Extraocular muscles intact. NECK: Supple, bilateral carotid pulses. No bruits. CHEST: Clear bilateral breath sounds. HEART: Regular rhythm. ABDOMEN: Soft. Active bowel sounds. Groin incision scar noted from previous transplant EXTREMITIES: Lower extremities within normal limits with good proximal distal pulses. No sign of acute deficit. Upper extremities - on the left side the patient has an AV fistula that is in the upper arm. Clearly the patient has a brachial artery in its normal course and then there is fistula that comes off in a convex fashion and is constructed out of a cephalic vein. Unfortunately, cephalic vein more laterally is clotted off, so essentially the fistula is now blind pouch in which blood sort of swirls around and goes back into the brachial artery. This is not causing any vascular insufficiency. However, the patient feels pain because it is obviously under pressure. Option of to leave it alone or to close the fistula and ligate it. Leaving it alone is predicated on the fact that the patient can tolerate this amount of pain for a little bit until fistula adjusts to it. I can also ligate the fistula, but that is associated with possible risk of brachial artery problems and embolization on one hand. On the other hand, this is a fistula that has been worked with many times and it might not be an easy task to fix this. Either way, I will discuss it with the patient and see what he says and go from there. Thank you much for the referral. Mustapha OVALLE/ /7:23 PM /9:11 PM
[2016-11-13] VITALS (7 sets, daily range): BP systolic 142–166; BP diastolic 82–97; PULSE 60–70; RESP 18–21; TEMP 97.7–98.2; O2SAT 95–96
[2016-11-13] MEDS: ACETAMINOPHEN/CODEINE 300 MG/30 MG TAB PO PRN ×3 (04:12→20:13)
[2016-11-13] MEDS: LEVOTHYROXINE SODIUM 25 MCG TAB PO SCH (06:07)
[2016-11-13] MEDS: MYCOPHENOLATE MOFETIL 500 MG TAB PO SCH ×2 (06:07→16:59)
[2016-11-13] MEDS: INSULIN ASPART SUPPLEMENTAL SCALE SQ SCH ×4 (06:10→21:00)
--- NOTE | 2016-11-13 08:49 | HHI.FPPN ---
Subjective Remarks FM Attending Note: Patient seen and examined. S: Chart and all resident physician notes reviewed. In summary this is a 55 year old male who was admitted with an admission diagnosis of Superficial Thrombophlebitis, Left Arm Pain. This patient has a history of renal transplant , diabetes mellitus, hypertension, hyperlipidemia, and hypothyroidism. This is his second visit complaining of pain in his left upper arm at the site of his AV fistula which has not been used in the last few years since his renal transplant. 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 Due to the rejection he would like to keep the fistula in place. While in the emergency room he did have an ultrasound of his left arm that showed occlusion of the fistula and cephalic vein. The patient has been seen by vascular surgery who is leaning towards conservative management. The patient has been seen by nephrology in consultation. Objective Vitals Vital Signs Date Time Temp Pulse Resp B/P Pulse Ox O2 Delivery O2 Flow Rate FiO2 11/13/16 08:03 98.2 60 18 166/97 95 11/13/16 03:56 97.9 65 20 154/87 96 11/13/16 00:18 97.7 65 21 143/90 95 11/12/16 22:35 21 11/12/16 20:09 66 11/12/16 19:23 98.3 65 20 140/85 98 11/12/16 17:23 98.0 70 18 158/95 96 11/12/16 14:24 66 15 156/93 99 Room Air 11/12/16 13:36 15 11/12/16 12:33 98.4 89 18 134/71 98 Result Diagram: 11/12/16 1315 11/12/16 1315 Imaging Last 48 hours Impressions Upper Extremity Ultrasound 11/12/16 0000 Signed Impressions: Service Date/Time: October 14:40 - CONCLUSION: 1. Occlusion of the fistula and cephalic vein Rikki Hernandez MD Objective Remarks O. CONSTITUTIONAL/GEN: normally nourished, in NAD. EYES: conjunctiva normal, PERRLA, EOMI. LUNGS: clear A-P, respiratory effort is normal. CARDIOVASCULAR: RR without murmur or gallop. No significant edema. AV fistula in left arm. Tenderness is on the medial aspect of the fistula at the upper arm area. GI/ABD: soft without masses, without organomegaly. NEURO: No focal deficits. SKIN: color normal, no rashes noted. HEME/LYMPH: no bruising, petechia or significant adenopathy MUSC: back is normal in appearance. Extremities are normal in appearance. PSYCH/MENTAL STATUS: Alert and oriented x 3. A/P Assessment and Plan This a 55-year-old -[place] male with history of renal transplant, diabetes mellitus, hypertension, hyperlipidemia, and hypothyroidism. Being admitted to observation for superficial thrombophlebitis Problem List: (1) Superficial thrombophlebitis Status: Acute Plan: Patient found to have an occlusion of the fistula and cephalic vein of his left arm. This is causing severe pain for the patient. It is only slightly tolerable with the Tylenol 3 and warm compresses. * Admit to observation * Vascular surgery consulted, recommendations are appreciated * Fistulogram ordered, to be performed by IR * Pain control with Tylenol 3 * Heat pads to the area of pain * CBC, BMP ordered for the a.m. 11/13/16 Awaiting recommendations of vascular surgery. (2) Chronic renal insufficiency Status: Acute Plan: Patient is status post kidney transplant, no longer on dialysis, kidney rejection. Currently hyperkalemic at 5.8 * Nephrology consulted, recommendations appreciated * Per nephrology on time dose of Kayexalate due to the hyperkalemia as this is chronic * Continue Tacrolimus * Continue Mycophenolate (3) Diabetes mellitus Status: Chronic Plan: Long-standing history of type 2 diabetes. * Continue Levemir 26 units * Insulin sliding scale per protocol * Blood glucoses per protocol (4) Hypertension Status: Chronic Plan: Long-standing history of hypertension * Continue lisinopril * Continue hydralazine * Continue amlodipine * Clonidine per elevated blood pressure protocol (5) Nutrition, metabolism, and development symptoms Status: Acute Plan: Activity: Out of bed ad catrina. Fluids: Adequate oral intake Diet: Renal diet On telemetry Vitals every 4 SCDs and heparin for DVT prophylaxis GI prophylaxis with Protonix CODE STATUS: Full code Disposition: Pending results of fistulogram Problem Qualifiers (1) Superficial thrombophlebitis: Qualified Code: I80.8 - Superficial thrombophlebitis of left upper extremity (2) Chronic renal insufficiency: Qualified Code: N18.9 - Chronic renal insufficiency, unspecified stage (3) Diabetes mellitus: Qualified Code: E11.22 - Type 2 diabetes mellitus with stage 5 chronic kidney disease not on chronic dialysis, with long-term current use of insulin Octaviano Madrigal MD November 13, 2016 08:49
[2016-11-13] MEDS: HEPARIN SODIUM - SQ 10,000 UNITS/ML VIAL SQ SCH ×4 (09:05→23:59)
[2016-11-13] MEDS: SODIUM CHLORIDE 0.9% FLUSH 10 ML FLUSH IV FLUSH SCH ×2 (09:05→20:13)
[2016-11-13] MEDS: hydrALAZINE HCL 25 MG TAB PO SCH ×3 (09:05→16:59)
[2016-11-13] MEDS: DOCUSATE SODIUM 100 MG CAP PO SCH ×2 (09:06→20:13)
[2016-11-13] MEDS: CHOLECALCIFEROL (VIT D3) 400 UNIT TAB PO SCH (09:09)
[2016-11-13] MEDS: predniSONE 10 MG TAB PO SCH (09:09)
[2016-11-13] MEDS: METOPROLOL SUCCINATE 50 MG EXTENDED RELEASE TAB PO SCH (09:09)
[2016-11-13] MEDS: MAGNESIUM OXIDE 400 MG TAB PO SCH (09:09)
[2016-11-13] MEDS: PANTOPRAZOLE SOD 40 MG DELAYED RELEASE TAB PO SCH (09:09)
[2016-11-13] MEDS: TACROLIMUS 5 MG CAP PO SCH ×2 (09:10→20:13)
[2016-11-13] MEDS: LISINOPRIL 20 MG TAB PO SCH (09:10)
[2016-11-13 10:13] LABS: AUTOMATED NEUTROPHIL # 5.2 TH/MM3 (1.8-7.7); BASOPHIL % 0.6 % (0.0-2.0); EOSINOPHIL # 0.1 TH/MM3 (0-0.4); HEMATOCRIT 35.8 % (39.0-51.0); HEMO FLAGS DIFF FINAL; LYMPH % 17.4 % (9.0-44.0); LYMPHOCYTE # 1.3 TH/MM3 (1.0-4.8); MEAN CELL VOLUME 75.6 FL (80.0-100.0); MEAN CORPUSCULAR HEMOGLOBIN 23.9 PG (27.0-34.0); MEAN CORPUSCULAR HGB CONC 31.7 % (32.0-36.0); PLATELET COUNT 328 TH/MM3 (150-450); RED BLOOD COUNT 4.73 MIL/MM3 (4.50-5.90); RED CELL DISTRIBUTION WIDTH 16.1 % (11.6-17.2); WHITE BLOOD COUNT 7.5 TH/MM3 (4.0-11.0)
[2016-11-13 10:43] LABS: BICARBONATE 19.8 MEQ/L (21.0-32.0); POTASSIUM 4.8 MEQ/L (3.5-5.1)
[2016-11-13] MEDS: INSULIN DETEMIR 100 UNITS/ML VIAL SQ SCH (10:45)
--- NOTE | 2016-11-13 11:58 | HHI.NPPN ---
Subjective History of Present Illness 55 year old with Kidney transplant and AVF left arm with outlet obstruction Objective Data Data Vital Signs Date Time Temp Pulse Resp B/P Pulse Ox O2 Delivery O2 Flow Rate FiO2 11/13/16 08:12 21 11/13/16 08:03 98.2 60 18 166/97 95 11/13/16 03:56 97.9 65 20 154/87 96 11/13/16 00:18 97.7 65 21 143/90 95 11/12/16 22:35 21 11/12/16 20:09 66 11/12/16 19:23 98.3 65 20 140/85 98 11/12/16 17:23 98.0 70 18 158/95 96 11/12/16 14:24 66 15 156/93 99 Room Air 11/12/16 13:36 15 11/12/16 12:33 98.4 89 18 134/71 98 -: 11/13/16 0929 11/13/16 0929 Physical Exam General Appearance: Well Developed Throat Throat Exam: Oral Mucosa Spearman & Moist Neck Neck Exam: Neck Supple Pulmonary Resp Exam: Clear Bilaterally, Breath Sounds Equal Cardiology CV Exam: Regular, Normal Sinus Rhythm Gastrointestinal/Abdomen GI Exam: Soft, Non-Tender, Bowel Sounds Present Extremeties Extremeties Remarks Left AVF Assessment/Plan Problem List: (1) Renal transplant recipient Plan: Patient is on immunosuppressive medication with chronic allograft dysfunction with diabetic nephropathy on prednisone 10 mg a day, Prograf 5 mg twice a day and CellCept 500 twice a day discussed invasive procedures using dye with Dr. Dee with need to use 20-30 cc dye small risk of kidney failure discuss with patient he wants to avoid it due to poor kidney function (2) AV fistula occlusion Plan: Ultrasound showed complete outflow occlusion and discussed with Dr. Flood who recommended conservative approach (3) DM (diabetes mellitus) Plan: Continue to monitor (4) CKD (chronic kidney disease) stage 3, GFR 30-59 ml/min Plan: Patient has hyperkalemia and continue to monitor (5) Hyperkalemia Plan: Kayexalate given Chito Pereira MD November 13, 2016 11:58
--- NOTE | 2016-11-13 20:34 | PD.CAR.PN ---
CVT Progress Note Subjective/Hospital Course: Patient comes back several days afterward been here already for a painful left upper arm AV fistula. Fistula has not been used in about 2 years but patient states that he has pain at this time Patient has excellent bruit in the fistula and excellent pulse. My fear is that patient might have occluded part of the outflow of the fistula and therefore this is now getting distended and becoming painful Ultrasound reveals normal flow through fistula but occlusion of the cephalic vein Considering the patient has a continuous flow through his fistula not sure of the cephalic vein was part of the flow at some point or not I believe this point is safest to simply admit the patient and go ahead with a formal fistulogram contrast study to see which she weighs which part of this fistula turned and going and if there is any outflow obstruction Outflow obstruction could lead to pain because of the pressure of arterial blood coming in The hand is nice and warm well perfused and pulses are normal We'll place consult interventional radiology 11/12/16 I reviewed the duplex ultrasound of the fistula tract and left upper arm Patient is excellent flow in the brachial artery and then the blood goes into this fistula however there is no outflow due to obliteration of the cephalic vein Hence patient has increased amount of pain for this is basically blind recess at this point I could go ahead and close the fistula but it is point if patient is not too much in discomfort because of this I'll probably leave it alone I'll discuss this with the patient and explained the risks and benefits of surgical versus nonsurgical approach 11/13/16 The most current duplex ultrasound again reveals occluded cephalic vein which is the outflow of the graft as well as partially occluded area of the fistula tract which is the most prominent portion here The arterial flow through brachial arteries intact All in all gradually the fistula tract will occlude itself and other than discomfort there is no other reason to ligate this fistula. Ligating the fistula is not risk-free and couldn't end up potentially compromising arterial from the brachial artery and therefore I would not recommended purely for discomfort Objective: Vital Signs Date Time Temp Pulse Resp B/P Pulse Ox O2 Delivery O2 Flow Rate FiO2 11/13/16 19:54 97.8 67 21 142/85 96 11/13/16 16:00 97.9 68 18 143/82 96 11/13/16 12:30 68 11/13/16 12:21 97.9 70 18 156/87 95 11/13/16 08:12 21 11/13/16 08:03 98.2 60 18 166/97 95 11/13/16 03:56 97.9 65 20 154/87 96 11/13/16 00:18 97.7 65 21 143/90 95 11/12/16 22:35 21 Labs: Laboratory Tests Test 11/13/16 09:29 White Blood Count 7.5 TH/MM3 (4.0-11.0) Red Blood Count 4.73 MIL/MM3 (4.50-5.90) Hemoglobin 11.3 GM/DL (13.0-17.0) Hematocrit 35.8 % (39.0-51.0) Mean Corpuscular Volume 75.6 FL (80.0-100.0) Mean Corpuscular Hemoglobin 23.9 PG (27.0-34.0) Mean Corpuscular Hemoglobin 31.7 % Concent (32.0-36.0) Red Cell Distribution Width 16.1 % (11.6-17.2) Platelet Count 328 TH/MM3 (150-450) Mean Platelet Volume 8.2 FL (7.0-11.0) Neutrophils (%) (Auto) 69.0 % (16.0-70.0) Lymphocytes (%) (Auto) 17.4 % (9.0-44.0) Monocytes (%) (Auto) 12.0 % (0.0-8.0) Eosinophils (%) (Auto) 1.0 % (0.0-4.0) Basophils (%) (Auto) 0.6 % (0.0-2.0) Neutrophils # (Auto) 5.2 TH/MM3 (1.8-7.7) Lymphocytes # (Auto) 1.3 TH/MM3 (1.0-4.8) Monocytes # (Auto) 0.9 TH/MM3 (0-0.9) Eosinophils # (Auto) 0.1 TH/MM3 (0-0.4) Basophils # (Auto) 0.0 TH/MM3 (0-0.2) CBC Comment DIFF FINAL Differential Comment Sodium Level 141 MEQ/L (136-145) Potassium Level 4.8 MEQ/L (3.5-5.1) Chloride Level 111 MEQ/L (98-107) Carbon Dioxide Level 19.8 MEQ/L (21.0-32.0) Anion Gap 10 MEQ/L (5-15) Blood Urea Nitrogen 37 MG/DL (7-18) Creatinine 2.41 MG/DL (0.60-1.30) Estimat Glomerular Filtration 34 ML/MIN (>89) Rate Random Glucose 94 MG/DL (74-106) Calcium Level 9.3 MG/DL (8.5-10.1) Result Diagram: 11/13/16 0929 11/13/16 0929 Mustapha Ivey MD November 13, 2016 20:34
--- NOTE | 2016-11-13 21:49 | EKG ---
Date Performed: 11/12/2016 Time Performed: 13:41:06 PTAGE: 55 years EKG: Sinus rhythm NONSPECIFIC T-WAVE ABNORMALITY BORDERLINE ECG PREVIOUS TRACING : 11/05/2016 13.53 Compared to prior tracing no significant change DOCTOR: Mohsen Tompkins Interpretating Date/Time 11/13/2016 21:49:07
[2016-11-14] VITALS (7 sets, daily range): BP systolic 135–174; BP diastolic 77–106; PULSE 60–69; RESP 18–21; TEMP 97.5–98.8; O2SAT 95–99
[2016-11-14] MEDS: ACETAMINOPHEN/CODEINE 300 MG/30 MG TAB PO PRN ×2 (03:50→12:34)
[2016-11-14 04:16] LABS: HEMATOCRIT 31.9 % (39.0-51.0); MEAN CELL VOLUME 75.6 FL (80.0-100.0); MEAN CORPUSCULAR HEMOGLOBIN 23.9 PG (27.0-34.0); MEAN CORPUSCULAR HGB CONC 31.6 % (32.0-36.0); PLATELET COUNT 298 TH/MM3 (150-450); RED BLOOD COUNT 4.22 MIL/MM3 (4.50-5.90); REVIEW FLAG FINAL; WHITE BLOOD COUNT 8.5 TH/MM3 (4.0-11.0)
[2016-11-14 04:42] LABS: BICARBONATE 20.7 MEQ/L (21.0-32.0); POTASSIUM 5.5 MEQ/L (3.5-5.1)
[2016-11-14] MEDS: LEVOTHYROXINE SODIUM 25 MCG TAB PO SCH (06:28)
[2016-11-14] MEDS: MYCOPHENOLATE MOFETIL 500 MG TAB PO SCH (06:28)
[2016-11-14] MEDS: INSULIN ASPART SUPPLEMENTAL SCALE SQ SCH ×2 (06:34→11:00)
--- NOTE | 2016-11-14 06:47 | HHI.FPPN ---
Subjective Remarks Pt is doing okay this morning except for pain in his left arm. He wanted to know what the plan is for management of his left AV fistula. He asked if it is possible to do a balloon dilation as was done previously. She states that he has gotten some rest in the hospital but would like to go home even if surgery would not be performed on his left arm. He did mention that the swelling had decreased compared to the day of admission. (EkoPao MD R1) Objective Vitals Vital Signs Date Time Temp Pulse Resp B/P Pulse Ox O2 Delivery O2 Flow Rate FiO2 11/14/16 03:50 98.0 62 21 159/88 99 11/14/16 00:23 98.8 69 18 135/77 98 11/13/16 19:54 97.8 67 21 142/85 96 11/13/16 16:00 97.9 68 18 143/82 96 11/13/16 12:30 68 11/13/16 12:21 97.9 70 18 156/87 95 11/13/16 08:12 21 11/13/16 08:03 98.2 60 18 166/97 95 (Pao Moses MD R1) Result Diagram: 11/14/16 0314 11/14/16 0315 Imaging Last 72 hours Impressions Upper Extremity Ultrasound 11/12/16 0000 Signed Impressions: Service Date/Time: October 14:40 - CONCLUSION: 1. Occlusion of the fistula and cephalic vein Rikki Hernandez MD Objective Remarks O. CONSTITUTIONAL/GEN: normally nourished, in NAD. EYES: conjunctiva normal, PERRLA, EOMI. LUNGS: clear A-P, respiratory effort is normal. CARDIOVASCULAR: RR without murmur or gallop. No significant edema. AV fistula in left arm. Tenderness is on the medial aspect of the fistula at the upper arm area. GI/ABD: soft without masses, without organomegaly. NEURO: No focal deficits. SKIN: color normal, no rashes noted. HEME/LYMPH: no bruising, petechia or significant adenopathy MUSC: back is normal in appearance. Extremities are normal in appearance. PSYCH/MENTAL STATUS: Alert and oriented x 3. (EkoPao MD R1) A/P Assessment and Plan This a 55-year-old -[place] male with history of renal transplant, diabetes mellitus, hypertension, hyperlipidemia, and hypothyroidism. Being admitted to observation for superficial thrombophlebitis of his left AV fistula. Vascular surgery was consulted and decided on conservative management. Discussed with Dr. Madrigal Discharge Planning Possible discharge today pending final vascular surgery recommendations. (Pao Moses MD R1) Attending Attestation Case reviewed and discussed with the resident team. Agree with plan of care as discussed with me and documented in the resident note. (Octaviano Madrigal MD) Problem List: (1) Superficial thrombophlebitis Status: Acute Plan: Patient found to have an occlusion of the fistula and cephalic vein of his left arm. This is causing severe pain for the patient. It is only slightly tolerable with the Tylenol 3 and warm compresses. * Admit to observation * Vascular surgery consulted, recommendations are appreciated * Fistulogram ordered, to be performed by IR * Pain control with Tylenol 3 * Heat pads to the area of pain * CBC, BMP ordered for the a.m. 11/13/16 Awaiting recommendations of vascular surgery 11/14/16 Awaiting final recommendations of vascular surgery (2) Chronic renal insufficiency Status: Acute Plan: Patient is status post kidney transplant, no longer on dialysis, kidney rejection. Currently hyperkalemic at 5.8 * Nephrology consulted, recommendations appreciated * Per nephrology on time dose of Kayexalate due to the hyperkalemia as this is chronic * Repeat Kayexalate as needed * Continue Tacrolimus * Continue Mycophenolate (3) Diabetes mellitus Status: Chronic Plan: Long-standing history of type 2 diabetes. * Continue Levemir 26 units * Insulin sliding scale per protocol - patient has not needed any supplemental insulin settings 11/12 * Blood glucose per protocol (4) Hypertension Status: Chronic Plan: Long-standing history of hypertension * Continue lisinopril * Continue hydralazine * Continue amlodipine * Clonidine per elevated blood pressure protocol (5) Nutrition, metabolism, and development symptoms Status: Acute Plan: Activity: Out of bed ad catrina. Fluids: Adequate oral intake Diet: Renal diet On telemetry Vitals every 4 SCDs and heparin for DVT prophylaxis GI prophylaxis with Protonix CODE STATUS: Full code Disposition: Pending results of fistulogram (Pao Moses MD R1) Problem Qualifiers (1) Superficial thrombophlebitis: Qualified Code: I80.8 - Superficial thrombophlebitis of left upper extremity (2) Chronic renal insufficiency: Qualified Code: N18.9 - Chronic renal insufficiency, unspecified stage (3) Diabetes mellitus: Qualified Code: E11.22 - Type 2 diabetes mellitus with stage 5 chronic kidney disease not on chronic dialysis, with long-term current use of insulin Pao Moses MD November 14, 2016 06:47 Octaviano Madrigal MD November 16, 2016 09:09
[2016-11-14] MEDS: HEPARIN SODIUM - SQ 10,000 UNITS/ML VIAL SQ SCH (08:00)
[2016-11-14] MEDS ORDERED: ATORVASTATIN 40 MG TAB PO SCH (09:00)
[2016-11-14] MEDS: hydrALAZINE HCL 25 MG TAB PO SCH ×2 (09:49→12:29)
[2016-11-14] MEDS: predniSONE 10 MG TAB PO SCH (09:49)
[2016-11-14] MEDS: TACROLIMUS 5 MG CAP PO SCH (09:49)
[2016-11-14] MEDS: DOCUSATE SODIUM 100 MG CAP PO SCH (09:49)
[2016-11-14] MEDS: METOPROLOL SUCCINATE 50 MG EXTENDED RELEASE TAB PO SCH (09:49)
[2016-11-14] MEDS: PANTOPRAZOLE SOD 40 MG DELAYED RELEASE TAB PO SCH (09:49)
[2016-11-14] MEDS: MAGNESIUM OXIDE 400 MG TAB PO SCH (09:49)
[2016-11-14] MEDS: LISINOPRIL 20 MG TAB PO SCH (09:50)
[2016-11-14] MEDS: CHOLECALCIFEROL (VIT D3) 400 UNIT TAB PO SCH (09:50)
[2016-11-14] MEDS: SODIUM CHLORIDE 0.9% FLUSH 10 ML FLUSH IV FLUSH SCH (09:52)
[2016-11-14] MEDS: INSULIN DETEMIR 100 UNITS/ML VIAL SQ SCH (09:52)
[2016-11-14] MEDS ORDERED: SODIUM POLYSTYRENE SULFONATE SUSP 15 GM/60 ML CUP PO ONE (12:00)
--- NOTE | 2016-11-14 12:44 | PD.CAR.PN ---
CVT Progress Note Subjective/Hospital Course: Patient comes back several days afterward been here already for a painful left upper arm AV fistula. Fistula has not been used in about 2 years but patient states that he has pain at this time Patient has excellent bruit in the fistula and excellent pulse. My fear is that patient might have occluded part of the outflow of the fistula and therefore this is now getting distended and becoming painful Ultrasound reveals normal flow through fistula but occlusion of the cephalic vein Considering the patient has a continuous flow through his fistula not sure of the cephalic vein was part of the flow at some point or not I believe this point is safest to simply admit the patient and go ahead with a formal fistulogram contrast study to see which she weighs which part of this fistula turned and going and if there is any outflow obstruction Outflow obstruction could lead to pain because of the pressure of arterial blood coming in The hand is nice and warm well perfused and pulses are normal We'll place consult interventional radiology 11/12/16 I reviewed the duplex ultrasound of the fistula tract and left upper arm Patient is excellent flow in the brachial artery and then the blood goes into this fistula however there is no outflow due to obliteration of the cephalic vein Hence patient has increased amount of pain for this is basically blind recess at this point I could go ahead and close the fistula but it is point if patient is not too much in discomfort because of this I'll probably leave it alone I'll discuss this with the patient and explained the risks and benefits of surgical versus nonsurgical approach 11/13/16 The most current duplex ultrasound again reveals occluded cephalic vein which is the outflow of the graft as well as partially occluded area of the fistula tract which is the most prominent portion here The arterial flow through brachial arteries intact All in all gradually the fistula tract will occlude itself and other than discomfort there is no other reason to ligate this fistula. Ligating the fistula is not risk-free and couldn't end up potentially compromising arterial from the brachial artery and therefore I would not recommended purely for discomfort 11/14/16 Risk-benefit ratio goes against doing any surgery at this time Fistula will eventually obliterate completely for there is no outflow I have repeatedly explained this to the patient and I do not know in what other therms I can put this Do not plan on any surgery at this time patient can be discharged from my point anytime Objective: Vital Signs Date Time Temp Pulse Resp B/P Pulse Ox O2 Delivery O2 Flow Rate FiO2 11/14/16 12:00 97.5 63 18 174/106 96 11/14/16 11:01 151/96 11/14/16 08:25 97.9 60 18 164/93 95 11/14/16 08:00 65 11/14/16 03:50 98.0 62 21 159/88 99 11/14/16 00:23 98.8 69 18 135/77 98 11/13/16 19:54 97.8 67 21 142/85 96 11/13/16 16:00 97.9 68 18 143/82 96 Labs: Laboratory Tests Test 11/14/16 11/14/16 03:14 03:15 White Blood Count 8.5 TH/MM3 (4.0-11.0) Red Blood Count 4.22 MIL/MM3 (4.50-5.90) Hemoglobin 10.1 GM/DL (13.0-17.0) Hematocrit 31.9 % (39.0-51.0) Mean Corpuscular Volume 75.6 FL (80.0-100.0) Mean Corpuscular Hemoglobin 23.9 PG (27.0-34.0) Mean Corpuscular Hemoglobin 31.6 % Concent (32.0-36.0) Red Cell Distribution Width 16.0 % (11.6-17.2) Platelet Count 298 TH/MM3 (150-450) Mean Platelet Volume 8.0 FL (7.0-11.0) Sodium Level 139 MEQ/L (136-145) Potassium Level 5.5 MEQ/L (3.5-5.1) Chloride Level 109 MEQ/L (98-107) Carbon Dioxide Level 20.7 MEQ/L (21.0-32.0) Anion Gap 9 MEQ/L (5-15) Blood Urea Nitrogen 49 MG/DL (7-18) Creatinine 2.61 MG/DL (0.60-1.30) Estimat Glomerular Filtration 31 ML/MIN (>89) Rate Random Glucose 134 MG/DL (74-106) Calcium Level 8.8 MG/DL (8.5-10.1) Result Diagram: 11/14/16 0314 11/14/16 0315 Mustapha Ivey MD November 14, 2016 12:44
--- NOTE | 2016-11-14 13:02 | HHI.DCPOC ---
Discharge Care Plan Diagnosis: (1) Renal transplant recipient (2) AV fistula occlusion (3) DM (diabetes mellitus) (4) Hypertension Goals to Promote Your Health * To prevent worsening of your condition and complications * To maintain your health at the optimal level Directions to Meet Your Goals Take your medications as prescribed Follow your dietary instruction Follow activity as directed Keep your appointments as scheduled Take your immunizations and boosters as scheduled If your symptoms worsen call your PCP, if no PCP go to Urgent Care Center or Emergency Room Smoking is Dangerous to Your Health. Avoid second hand smoke Call the 24-hour hour crisis hotline for domestic abuse at Pao Moses MD R1 November 14, 2016 13:02
--- NOTE | 2016-11-14 13:04 | HHI.DS ---
Discharge Summary Admission Date November 12, 2016 Discharge Date: November 14, 2016 Admitting Diagnosis superficial thrombophlebitis, left arm pain, hyperkalemia, CKD (1) Superficial thrombophlebitis Diagnosis: Principal (2) Chronic renal insufficiency Diagnosis: Principal (3) Diabetes mellitus Diagnosis: Secondary (4) Hypertension Diagnosis: Secondary Brief History This a 55-year-old -[place] male with history of renal transplant, diabetes mellitus, hypertension, hyperlipidemia, and hypothyroidism. He is worked up one week ago for pain in his left arm and causes believed to be due to superficial thrombophlebitis where his fistula is located. Also was done at that time that showed no DVTs however the superficial thrombosis was present in the left cephalic vein. Vascular surgery was consulted at that time and no acute intervention was felt to be necessary. He was discharged home with plans to follow-up as an outpatient. His arm continued to hurt throughout the next week. He describes the pain as a constant pressure with occasional sharp pains. The pain is located where his fistula is. He says that Tylenol and hot water help some with the pain. Prior to being evaluated today the vascular surgeon and already seen him ultrasound was redone and occlusion of the fistula and cephalic vein was seen. Patient was told the plan to admit to observation for a fistulogram to be performed by IR and he agreed with this. CBC/BMP: 11/14/16 0314 11/14/16 0315 Significant Findings Laboratory Tests Test 11/12/16 11/13/16 11/14/16 11/14/16 13:15 09:29 03:14 03:15 Red Blood Count 4.47 MIL/MM3 4.22 MIL/MM3 (4.50-5.90) (4.50-5.90) Hemoglobin 10.4 GM/DL 11.3 GM/DL 10.1 GM/DL (13.0-17.0) (13.0-17.0) (13.0-17.0) Hematocrit 34.1 % 35.8 % 31.9 % (39.0-51.0) (39.0-51.0) (39.0-51.0) Mean Corpuscular Volume 76.4 FL 75.6 FL 75.6 FL (80.0-100.0) (80.0-100.0) (80.0-100.0) Mean Corpuscular Hemoglobin 23.2 PG 23.9 PG 23.9 PG (27.0-34.0) (27.0-34.0) (27.0-34.0) Mean Corpuscular Hemoglobin 30.4 % 31.7 % 31.6 % Concent (32.0-36.0) (32.0-36.0) (32.0-36.0) Neutrophils (%) (Auto) 86.4 % (16.0-70.0) Lymphocytes (%) (Auto) 5.6 % (9.0-44.0) Neutrophils # (Auto) 9.2 TH/MM3 (1.8-7.7) Lymphocytes # (Auto) 0.6 TH/MM3 (1.0-4.8) Potassium Level 5.8 MEQ/L 5.5 MEQ/L (3.5-5.1) (3.5-5.1) Chloride Level 109 MEQ/L 111 MEQ/L 109 MEQ/L (98-107) (98-107) (98-107) Carbon Dioxide Level 18.6 MEQ/L 19.8 MEQ/L 20.7 MEQ/L (21.0-32.0) (21.0-32.0) (21.0-32.0) Blood Urea Nitrogen 39 MG/DL (7-18) 37 MG/DL (7-18) 49 MG/DL (7-18) Creatinine 2.50 MG/DL 2.41 MG/DL 2.61 MG/DL (0.60-1.30) (0.60-1.30) (0.60-1.30) Estimat Glomerular Filtration 33 ML/MIN (>89) 34 ML/MIN (>89) 31 ML/MIN (>89) Rate Random Glucose 174 MG/DL 134 MG/DL (74-106) (74-106) Monocytes (%) (Auto) 12.0 % (0.0-8.0) Imaging Last 72 hours Impressions Upper Extremity Ultrasound 11/12/16 0000 Signed Impressions: Service Date/Time: October 14:40 - CONCLUSION: 1. Occlusion of the fistula and cephalic vein Rikki Hernandez MD PE at Discharge O. CONSTITUTIONAL/GEN: normally nourished, in NAD. EYES: conjunctiva normal, PERRLA, EOMI. LUNGS: clear A-P, respiratory effort is normal. CARDIOVASCULAR: RR without murmur or gallop. No significant edema. AV fistula in left arm. Tenderness is on the medial aspect of the fistula at the upper arm area. GI/ABD: soft without masses, without organomegaly. NEURO: No focal deficits. SKIN: color normal, no rashes noted. HEME/LYMPH: no bruising, petechia or significant adenopathy MUSC: back is normal in appearance. Extremities are normal in appearance. PSYCH/MENTAL STATUS: Alert and oriented x 3. Transfer Summary This a 55-year-old -[place] male with history of renal transplant, diabetes mellitus, hypertension, hyperlipidemia, and hypothyroidism. He was admitted for superficial thrombophlebitis of his left AV fistula. Ultrasound performed in the ED showed occlusion of the fistula and the cephalic vein. A fistulogram was not performed due to his kidney function and kidney transplant. Vascular surgery was consulted and decided on conservative management. The AV fistula is expected to close up on its own. The patient was discharged home in stable condition. Please see the discharge medication documentation for more information on medication changes during this admission, if any. Pt Condition on Discharge: Stable Discharge Disposition: Discharge Home Discharge Instructions DIET: Follow Instructions for: Renal Failure Diet Activities you can perform: Regular-No Restrictions Follow up Referrals: Nephrology - 1 Week PCP Follow-up - 1 Week Vascular Surgery - 2 Weeks New Medications: Acetaminophen-Codeine (Acetaminophen-Codeine) 300-60 mg Tab 1 TAB PO Q4H PRN PAIN #60 TAB Continued Medications: Acetaminophen-Codeine (Tylenol-Codeine #3) 300-30 mg Tab 1 TAB PO Q4H PRN PAIN #20 Ref 0 TAB Amlodipine (Amlodipine) 10 Mg Tab 10 MG PO DAILY Blood Pressure Management #31 Ref 3 TAB Atorvastatin (Atorvastatin) 40 Mg Tab 40 MG PO EVERY OTHER DAY please check with your economic development coordinator about checking immunosuppresant levels when you go up to 40 mg daily. Cholesterol Management # 30 Ref 3 TAB B-Complex W/ C & Folic Acid (Nephrocaps) 1 Cap 1 CAP PO DAILY If on dialysis, take after treatment. Nutritional Supplement #30 Ref 0 CAP Baclofen (Baclofen) 10 Mg Tab 10 MG PO Q8HR PRN MUSCLE SPASM Days 7 Ref 0 TAB Carefine Pen Needle [id number] (Carefine Pen Needle [id number]) 1 Mis Mis 1 BOX .ROUTE QID Blood Sugar Management #1 Ref 3 BOX Cholecalciferol (Vitamin D) 400 Unit/Ml Drops 400 UNITS PO DAILY #1 BOTTLE Fluticasone Nasal [place] (Fluticasone Nasal [place]) 50 Mcg/Act Naspr 50 MCG EACH NARE BID 50 mcg/spray Allergy Management #1 Ref 0 BOTTLE Hydralazine (Hydralazine) 25 Mg Tab 25 MG PO TID Take with a meal Blood Pressure Management #90 Ref 3 TAB Insulin Glargine Inj (Lantus Inj) 1,000 Unit/10 Ml Vial 26 UNITS SQ DAILY Blood Sugar Management #1 Ref 0 VIAL Insulin Lispro (Human) Inj (Humalog Inj) 1,000 Unit/10 Ml Vial 4 UNITS SQ TID less than 70:0units;150-200: 2units; 201-250:4units;251-300: 6units; 301-350: 8units; more than 350: 12units. Blood Sugar Management #1 Ref 0 VIAL Levothyroxine (Levothyroxine) 25 Mcg Tab 25 MCG PO DAILY Thyroid #30 Ref 3 TAB Lisinopril (Lisinopril) 20 Mg Tab 20 MG PO DAILY #30 Ref 0 TAB Magnesium Gluconate (Magnesium Gluconate) 500 Mg Tab 500 MG PO DAILY Nutritional Supplement Ref 0 TAB Metoprolol Succinate ER 24 HR (Metoprolol Succinate ER 24 HR) 100 Mg Tab 100 MG PO DAILY #30 Ref 3 TAB Mycophenolate (Mycophenolate) 500 Mg Tab 500 MG PO BID Immunosuppression #120 Ref 0 TAB Ondansetron (Zofran) 4 Mg Tab 4 MG PO Q12HR PRN NAUSEA OR VOMITING #30 Ref 0 TAB Pantoprazole (Protonix) 40 Mg Tab 40 MG PO DAILY It is recommended that you do not take this medication for more than 2 weeks at a time. Reflux #30 Ref 3 TAB Prednisone (Deltasone) 20 Mg Tab 10 MG PO DAILY #60 Ref 0 TAB Sodium Bicarbonate (Sodium Bicarbonate) 650 Mg Tab 1300 MG PO BIDPC #60 Ref 0 TAB Tacrolimus (Prograf) 1 Mg Cap 1 MG PO BID Prevent Transplant Reject #60 Ref 0 CAP Valganciclovir (Valganciclovir) 450 Mg Tab 450 MG PO DAILY Mgmt Viral Infection #30 Ref 0 TAB Pao Moses MD R1 November 14, 2016 13:04
--- NOTE | 2016-11-14 13:50 | HHI.NPPN ---
Subjective History of Present Illness 55-year-old male with history of kidney transplant in 2008 with failing allograft, diabetic nephropathy on last biopsy in chronic rejection patient has elevated creatinine 2.5 and potassium was 5.8 he has developed increasing swelling over the AV fistula and it was painful. Additional Remarks Patient has pain in left arm, no SOB, eating well. Review of Systems General Constitutional: Fatigue Cardiovascular Cardiac: [place] Objective Data Data Vital Signs Date Time Temp Pulse Resp B/P Pulse Ox O2 Delivery O2 Flow Rate FiO2 11/14/16 13:40 67 141/87 11/14/16 12:00 97.5 63 18 174/106 96 11/14/16 11:01 151/96 11/14/16 08:25 97.9 60 18 164/93 95 11/14/16 08:00 65 11/14/16 03:50 98.0 62 21 159/88 99 11/14/16 00:23 98.8 69 18 135/77 98 11/13/16 19:54 97.8 67 21 142/85 96 11/13/16 16:00 97.9 68 18 143/82 96 -: 11/14/16 0314 11/14/16 0315 Physical Exam General Appearance: No Acute Distress, Comfortable Throat Throat Exam: Oral Mucosa [place] & Moist Neck Neck Exam: Neck Supple Pulmonary Resp Exam: Clear Bilaterally, Breath Sounds Equal Cardiology CV Exam: Regular, Normal Sinus Rhythm Gastrointestinal/Abdomen GI Exam: Soft, Non-Tender, Bowel Sounds Present, Non-Distended Extremeties Extremities Exam: Trace Edema Extremeties Remarks Left arm AVF site, faint Bruit, tender, no redness. Neurologic Neuro Exam: Alert, Awake, Oriented Psychiatric Psych Exam: Appropriate Responses Assessment/Plan Problem List: (1) Renal transplant recipient Plan: Patient is on immunosuppressive medication with chronic allograft dysfunction with diabetic nephropathy on prednisone 10 mg a day, Prograf 5 mg twice a day and CellCept 500 twice a day Creatinine is now 2.6, K was elevated and given Kayexalate. Vascular follow up noted, no surgery. (2) AV fistula occlusion Plan: Ultrasound showed complete outflow occlusion and discussed with Dr. Flood who recommended conservative approach (3) DM (diabetes mellitus) Plan: Continue to monitor (4) CKD (chronic kidney disease) stage 3, GFR 30-59 ml/min Plan: Patient has hyperkalemia and continue to monitor (5) Hyperkalemia Plan: Kayexalate given Lashawn Sanchez MD November 14, 2016 13:50
[2016-11-14] MEDS ORDERED: ACET300T4 PO (14:44)
[2016-11-19] MEDS ORDERED: ATOR40TA16 PO (09:03)
[2016-11-19] MEDS ORDERED: LANTUS2P SQ (09:03)
[2016-11-19] MEDS ORDERED: AMLO10TA2 PO (09:03)
[2016-11-19] MEDS ORDERED: PANT20 PO (09:03)
[2016-11-19] MEDS ORDERED: LISI20TA3 PO (09:03)
[2016-11-19] MEDS ORDERED: HYDR-3801 PO (09:03)
[2016-11-19] MEDS ORDERED: LEVO25TA4 PO (09:03)
[2016-11-19] MEDS ORDERED: METO100T9 PO (09:03)
[2016-12-24] MEDS ORDERED: INSU-98 (13:55)
[2016-12-24] MEDS ORDERED: LANTUS2P SQ (15:56)
[2016-12-25] MEDS ORDERED: HUMALOG SQ (16:57)
[2016-12-28] MEDS ORDERED: HUMA100I3 SQ (11:32)
== END 2016-11-14 16:20 | disposition home or self-care (01) | DRG 315 ==
LOC: NEPD 12:31 → NEDA 15:24 → NEPHCDU 17:12 → OBSVTOIN 11-13 10:21 → HOCA 11-14 11:43
PROVIDERS: ADMIT Family Medicine; ATTEND Family Medicine
DX: T82.868A Thrombosis due to vascular prosthetic devices, implants and grafts, initial encounter (principal); T86.11 Kidney transplant rejection; I13.0 Hypertensive heart and chronic kidney disease with heart failure and stage 1 through stage 4 chronic kidney disease, or unspecified chronic kidney disease; Z94.0 Kidney transplant status; E11.21 Type 2 diabetes mellitus with diabetic nephropathy; I50.9 Heart failure, unspecified; E87.5 Hyperkalemia; E11.22 Type 2 diabetes mellitus with diabetic chronic kidney disease; E03.9 Hypothyroidism, unspecified; E78.5 Hyperlipidemia, unspecified; N18.3 Chronic kidney disease, stage 3 (moderate); Y83.0 Surgical operation with transplant of whole organ as the cause of abnormal reaction of the patient, or of later complication, without mention of misadventure at the time of the procedure; Y83.2 Surgical operation with anastomosis, bypass or graft as the cause of abnormal reaction of the patient, or of later complication, without mention of misadventure at the time of the procedure; Z79.4 Long term (current) use of insulin; Z91.018 Allergy to other foods; Z91.040 Latex allergy status
CPT/HCPCS: 76937; 80048; 82948; 85025; 85027; 85610; 85730; 93005; 93971; 96374; G0378; J1644; J1815; J2270; J7507; J7512; J7517

== ENCOUNTER → 2016-11-17 | Outpatient (CLI) | payer MEDICARE, MEDICAID ==
[~2016-11-17] MED LIST changes: +ACET300T4 PO; +HUMA100I3 SQ; +HYDR-3801 PO; +LISI20TA3 PO; +PANT20 PO; +TACR5CAP PO
[2016-11-17 08:51] LABS: AUTOMATED NEUTROPHIL # 5.6 TH/MM3 (1.8-7.7); BASOPHIL # 0.1 TH/MM3 (0-0.2); BASOPHIL % 0.7 % (0.0-2.0); EOSINOPHIL # 0.1 TH/MM3 (0-0.4); EOSINOPHIL % 1.1 % (0.0-4.0); HEMATOCRIT 31.6 % (39.0-51.0); HEMO FLAGS DIFF FINAL; LYMPH % 13.3 % (9.0-44.0); MEAN CELL VOLUME 76.5 FL (80.0-100.0); MEAN CORPUSCULAR HEMOGLOBIN 24.5 PG (27.0-34.0); MONO % 11.5 % (0.0-8.0); NEUT % 73.4 % (16.0-70.0); PLATELET COUNT 334 TH/MM3 (150-450); RED BLOOD COUNT 4.14 MIL/MM3 (4.50-5.90); RED CELL DISTRIBUTION WIDTH 16.2 % (11.6-17.2); WHITE BLOOD COUNT 7.6 TH/MM3 (4.0-11.0)
[2016-11-17 09:14] LABS: FOLLICLE STIMULATING HORMONE 0.8 mIU/mL (0.7-10.8); FREE T3 1.59 PG/ML (2.18-3.98); FREE T4 0.97 NG/DL (0.76-1.46); INDIRECT BILIRUBIN 0.1 MG/DL (0.0-0.8); POTASSIUM 5.2 MEQ/L (3.5-5.1); TOTAL BILIRUBIN ADULT 0.2 MG/DL (0.2-1.0)
[2016-11-19 03:52] LABS: ADRENOCORTICOTROPHIC 13 pg/mL (6-50); ISLET CELL ANTIBODY SCREEN NEGATIVE (NEGATIVE); ISLET CELL ANTIBODY TITER ND JDF (())
[2016-11-19 12:43] LABS: ESTRADIOL 12 pg/mL (10-40)
[2016-11-20 16:03] LABS: ALDOSTERONE, SERUM LESS THAN 1.0 ng/dL (())
[2016-11-21 19:52] LABS: INSULIN AUTO ANTIBODIES LESS THAN 0.4 U/mL (<0.4)
== END ==
LOC: CLAB 07:58
PROVIDERS: ATTEND Internal Medicine Endocrinology, Diabetes & Metabolism
DX: E11.65 Type 2 diabetes mellitus with hyperglycemia (principal)
CPT/HCPCS: 36415; 80048; 80076; 82024; 82043; 82088; 82670; 83001; 83519; 83525; 84146; 84244; 84403; 84439; 84443; 84481; 84681; 85025; 86337; 86341

== ENCOUNTER → 2016-12-04 | Outpatient (CLI) | payer MEDICARE, MEDICAID ==
[~2016-12-04] MED LIST changes: -HUMA100I3 SQ; -HYDR25TA35 PO; -LISI-515 PO; -PROT40TA PO
[2016-12-04 12:28] LABS: HEMATOCRIT 32.7 % (39.0-51.0); MEAN CELL VOLUME 76.3 FL (80.0-100.0); MEAN CORPUSCULAR HEMOGLOBIN 23.4 PG (27.0-34.0); MEAN CORPUSCULAR HGB CONC 30.7 % (32.0-36.0); PLATELET COUNT 208 TH/MM3 (150-450); RED BLOOD COUNT 4.28 MIL/MM3 (4.50-5.90); RED CELL DISTRIBUTION WIDTH 16.5 % (11.6-17.2); REVIEW FLAG FINAL; WHITE BLOOD COUNT 7.6 TH/MM3 (4.0-11.0)
[2016-12-04 12:32] LABS: INTERNATIONAL NORMALIZED RATIO 0.9 RATIO; PROTHROMBIN TIME - PATIENT 10.2 SEC (9.8-11.6)
[2016-12-04 12:51] LABS: BICARBONATE 18.2 MEQ/L (21.0-32.0); POTASSIUM 5.6 MEQ/L (3.5-5.1)
--- NOTE | 2016-12-04 13:03 | RADRPT ---
EXAM DATE/TIME: 12/04/2016 12:48 [facility] COMPARISON: CHEST SINGLE AP, October 31, 2016, 10:57. CHEST PA & LAT, November 25, 2015, 8:04. INDICATIONS : Pre op to evaluate for pneumothorax, pneumonia, or any communicable diseases. MEDICAL HISTORY : Hypercholesterolemia. Hypertension. Congestive heart failure. Hyperlipidemia. SURGICAL HISTORY : Kidney transplant. Left ACL repair. AVF, left arm. ENCOUNTER: Initial ACUITY: 1 day PAIN SCORE: 0/10 LOCATION: Bilateral chest FINDINGS: PA and lateral views of the chest demonstrate the lungs to be symmetrically aerated without evidence of mass, infiltrate or effusion. The cardiomediastinal contours are unremarkable. Degenerative spond ylosis of the lower thoracic spine. CONCLUSION: 1. No acute cardiopulmonary disease. Blake Leggett MD on December 04, 2016 at 13:00 Board Certified Radiologist. This report was verified electronically.
== END ==
LOC: CPRE 11:56
PROVIDERS: ATTEND Surgery
DX: N18.6 End stage renal disease (principal); Z01.812 Encounter for preprocedural laboratory examination; Z01.818 Encounter for other preprocedural examination
CPT/HCPCS: 36415; 71020; 80048; 85027; 85610

== ENCOUNTER 2016-12-07 08:39 | Observation (INO) | payer MEDICARE, MEDICAID ==
[2016-12-07] VITALS (9 sets, daily range): BP systolic 141–172; BP diastolic 87–96; PULSE 56–75; RESP 18; TEMP 98.3–98.6; O2SAT 98–100
[~2016-12-07] VITALS: Ht 181.6 cm; Wt 71.5 kg
[~2016-12-07 08:39] MED LIST changes: -TACR5CAP PO
[2016-12-07] MEDS ORDERED: INSULIN HUMAN REGULAR 1,000 UNITS/10 ML VIAL SQ PRN (09:30)
[2016-12-07] MEDS ORDERED: SODIUM CHLORID 0.9% 500 ML IV PRN (09:30)
[2016-12-07] MEDS ORDERED: LACTATED RINGER'S 1000 ML IV PRN (09:30)
[2016-12-07] MEDS ORDERED: POVIDONE IODINE 5% (ANTISEPSIS KIT) 4 APPLICATIONS EACH NARE PRN (09:30)
[2016-12-07] MEDS ORDERED: CHLORHEXIDINE GLUCONATE 2 % 1 PACK (2 CLOTHS) TOPICAL PRN (09:30)
[2016-12-07] MEDS ORDERED: METOPROLOL TARTRATE 25 MG TAB PO PRN (09:30)
[2016-12-07 11:22] LABS: ALT (GPT) 13 U/L (12-78); ANION GAP 10 MEQ/L (5-15); AST (GOT) 12 U/L (15-37); BICARBONATE 18.4 MEQ/L (21.0-32.0); BLOOD UREA NITROGEN 49 MG/DL (7-18); CHLORIDE 115 MEQ/L (98-107); GLOMERULAR FILTRATION RATE 33 ML/MIN (>89); POTASSIUM 5.6 MEQ/L (3.5-5.1); SODIUM (NA) 143 MEQ/L (136-145)
[2016-12-07 11:24] LABS: ALKALINE PHOSPHATASE 78 U/L (45-117); TOTAL BILIRUBIN ADULT 0.2 MG/DL (0.2-1.0)
[2016-12-07] MEDS ORDERED: BUPIVACAINE/EPINEPHRINE 0.5% PF 30 ML VIAL ONE (11:37)
[2016-12-07] MEDS ORDERED: PROPOFOL 200 MG/20 ML AMP IV ONE (12:00)
[2016-12-07] MEDS ORDERED: SODIUM CHLORID 0.9% 500 ML INJ 500 ML IV ONE (12:00)
[2016-12-07] MEDS ORDERED: ONDANSETRON HCL 4 MG/2 ML VIAL IV PUSH ONE (12:00)
[2016-12-07] MEDS ORDERED: ePHEDrine/NS 25 MG/5 ML SYR IV ONE (12:00)
--- NOTE | 2016-12-07 12:49 | PD.VS.PN ---
Pre-operative Note Pre-operative diagnosis: Thrombophlebitis, L UE AVF Planned procedure: L UE access excision Interval History: The patient has no F/C since I saw him in clinic. No other changes that should preclude OR. Heart; reg rate, no M chest: clear B Labs: Laboratory Results Test 12/07/16 10:46 Sodium Level 143 MEQ/L (136-145) Potassium Level 5.6 MEQ/L (3.5-5.1) Chloride Level 115 MEQ/L (98-107) Carbon Dioxide Level 18.4 MEQ/L (21.0-32.0) Anion Gap 10 MEQ/L (5-15) Blood Urea Nitrogen 49 MG/DL (7-18) Random Glucose 87 MG/DL (74-106) Calcium Level 8.4 MG/DL (8.5-10.1) Blood: none needed Orders: NPO Ancef 2g IV OCTOR Post-operative destination: PACU Operative site marked: Yes Consent: Informed consent has been obtained from Alli Gabriel Jr. I have explained the procedure in detail and discussed the risks, benefits, and potential complications. All questions have been answered. Alli Sauceda MD Dec 07, 2016 12:49
[2016-12-07] MEDS ORDERED: ceFAZolin INJ 1,000 MG VIAL ONE (12:58)
[2016-12-07] MEDS ORDERED: THROMBIN (TOPICAL) 20,000 UNIT SPRAY KIT OTHER ONE (13:45)
[2016-12-07] MEDS ORDERED: HYDROmorphone HCL 2 MG TAB PO PRN (14:15)
[2016-12-07] MEDS ORDERED: BACLOFEN 10 MG TAB PO PRN (14:15)
--- NOTE | 2016-12-07 14:15 | HHI.PR ---
Immediate Post Op Note Procedure Date: Dec 07, 2016 Pre Op Diagnosis: thrombophlebitis L UE Post Op Diagnosis: thrombophlebitis L UE Surgeon: Alli Sauceda Camera Maker(s): Nicola Albert Procedure: Excision L UE access Findings: palpable radial pulse after excision Complications: none apparent Specimen(s) removed: none for pathology Estimated blood loss: 30mL Anesthesia: General Drains: None Fluids: 500mL X'oid IVF Patient to: PACU Patient Condition: Good Date/Time of Procedure: SEE SURGICAL CARE RECORD Alli Sauceda MD Dec 07, 2016 14:14
[2016-12-07] MEDS ORDERED: DO NOT ADM ANY ANTICOAGULANT DRUGS PRN (14:36)
[2016-12-07] MEDS ORDERED: *ONDANSETRON 4 MG VIAL PERIprocedural Use ONLY ONE (14:46)
[2016-12-07] MEDS ORDERED: *morphine SULFATE 8 MG/ML PERIprocedure ONLY ONE (14:49)
[2016-12-07] MEDS ORDERED: ONDANSETRON ODT 4 MG TAB PO PRN (15:30)
[2016-12-07] MEDS: MORPHINE SULFATE 4 MG/ML INJ IV PRN ×3 (17:00→23:47)
[2016-12-07] MEDS: hydrALAZINE HCL 25 MG TAB PO SCH (17:02)
[2016-12-07] MEDS: INSULIN ASPART 1,000 UNITS/10 ML VIAL SQ SCH (17:07)
[2016-12-07] MEDS: SODIUM BICARBONATE 650 MG TAB PO SCH (17:12)
[2016-12-07] MEDS: MYCOPHENOLATE MOFETIL 500 MG TAB PO SCH (17:12)
[2016-12-07] MEDS: ONDANSETRON HCL 4 MG/2 ML VIAL IV PUSH PRN (19:11)
[2016-12-07] MEDS: FLUTICASONE PROPIONATE 50 MCG/ACT 16 GM NASAL SPRAY EACH NARE SCH (20:39)
[2016-12-07] MEDS: TACROLIMUS 1 MG CAP PO SCH (20:39)
[2016-12-07] MEDS: LOW DOSE INSULIN NOVOLOG SUPPLEMENTAL SCALE SQ SCH (20:57)
[2016-12-07] MEDS ORDERED: DEXTROSE 50% IN WATER 50 ML VIAL(D50) IV PUSH PRN (21:00)
[2016-12-07] MEDS ORDERED: PLEASE DISCONTINUE PREVIOUS SUPPLEMENTAL SCALE INSULIN ORDERS ONE (21:00)
[2016-12-07] MEDS ORDERED: GLUCAGON 1 MG/ML VIAL OTHER PRN (21:00)
[2016-12-07] MEDS ORDERED: ACETAMINOPHEN 325 MG TAB PO PRN (21:45)
[2016-12-07] MEDS ORDERED: TACROLIMUS 1 MG CAP PO SCH (22:15)
[2016-12-08] VITALS (28 sets, daily range): BP systolic 128–168; BP diastolic 81–99; PULSE 65–80; RESP 20; TEMP 97.1–98.9; O2SAT 94–100
[2016-12-08] MEDS: MORPHINE SULFATE 4 MG/ML INJ IV PRN ×2 (02:39→05:38)
[2016-12-08] MEDS: LEVOTHYROXINE SODIUM 25 MCG TAB PO SCH (05:38)
[2016-12-08] MEDS: MYCOPHENOLATE MOFETIL 500 MG TAB PO SCH ×2 (05:38→17:25)
[2016-12-08] MEDS: LOW DOSE INSULIN NOVOLOG SUPPLEMENTAL SCALE SQ SCH ×4 (06:00→21:02)
[2016-12-08 06:04] LABS: HEMATOCRIT 32.2 % (39.0-51.0); MEAN CELL VOLUME 75.8 FL (80.0-100.0); MEAN CORPUSCULAR HEMOGLOBIN 23.8 PG (27.0-34.0); MEAN CORPUSCULAR HGB CONC 31.4 % (32.0-36.0); PLATELET COUNT 192 TH/MM3 (150-450); RED BLOOD COUNT 4.24 MIL/MM3 (4.50-5.90); RED CELL DISTRIBUTION WIDTH 16.8 % (11.6-17.2); REVIEW FLAG FINAL; WHITE BLOOD COUNT 7.7 TH/MM3 (4.0-11.0)
[2016-12-08 06:31] LABS: BICARBONATE 17.1 MEQ/L (21.0-32.0); POTASSIUM 6.5 MEQ/L (3.5-5.1)
[2016-12-08] MEDS ORDERED: FUROSEMIDE 40 MG/4 ML VIAL IV PUSH ONE (08:00)
[2016-12-08] MEDS: INSULIN DETEMIR 100 UNITS/ML VIAL SQ SCH (08:22)
[2016-12-08] MEDS: INSULIN ASPART 1,000 UNITS/10 ML VIAL SQ SCH ×3 (08:23→17:26)
[2016-12-08] MEDS ORDERED: CALCIUM GLUCONATE 10% 1 GM/10 ML VIAL IV PUSH ONE (08:30)
[2016-12-08] MEDS ORDERED: SODIUM BICARBONATE 8.4% INJ 50 MEQ/50 ML SYR IV PUSH ONE (08:30)
[2016-12-08] MEDS ORDERED: DEXTROSE 50% IN WATER 50 ML SYRINGE IV ONE (08:30)
[2016-12-08] MEDS ORDERED: INSULIN HUMAN REGULAR 1,000 UNITS/10 ML VIAL IV PUSH ONE (08:30)
--- NOTE | 2016-12-08 08:30 | PD.VS.PN ---
Subjective POD #: 1 Procedure(s): LEFT upper extremity access excision Subjective/Hospital Course Pt c/o LEFT arm pain but hand ok. Objective Vitals/I&O Date Time Temp Pulse Resp B/P Pulse Ox O2 Delivery O2 Flow Rate FiO2 12/08/16 06:18 72 12/08/16 05:06 75 12/08/16 04:45 76 12/08/16 03:25 75 12/08/16 03:08 98.3 65 168/97 100 12/08/16 02:00 68 12/08/16 01:00 66 12/08/16 00:00 66 12/07/16 23:00 98.6 64 141/87 100 12/07/16 23:00 71 12/07/16 22:00 64 12/07/16 21:00 72 12/07/16 20:00 70 12/07/16 19:00 75 12/07/16 19:00 98.3 64 153/87 100 12/07/16 18:03 74 12/07/16 17:53 98.6 56 18 172/96 100 12/07/16 17:53 72 12/07/16 17:12 18 12/07/16 17:00 63 12/07/16 16:00 58 12 135/82 99 Nasal Cannula 2 12/07/16 15:30 66 15 143/78 98 Nasal Cannula 2 12/07/16 15:15 67 16 135/75 98 Nasal Cannula 2 12/07/16 15:00 67 14 137/80 98 Nasal Cannula 2 12/07/16 14:45 67 14 158/90 94 Room Air 12/07/16 14:35 97.6 69 17 159/94 99 Room Air 12/07/16 09:40 98.6 65 18 146/87 98 Exam: alert oriented and feels well L arm pain Pulses: palpable 2+ pulse Laboratory Laboratory Tests Test 12/07/16 12/08/16 10:46 05:34 Sodium Level 143 138 Potassium Level 5.6 6.5 Chloride Level 115 112 Carbon Dioxide Level 18.4 17.1 Anion Gap 10 9 Blood Urea Nitrogen 49 43 Creatinine 2.49 2.52 Estimat Glomerular Filtration 33 32 Rate Random Glucose 87 143 Calcium Level 8.4 8.3 Total Bilirubin 0.2 Aspartate Amino Transf 12 (AST/SGOT) Alanine Aminotransferase 13 (ALT/SGPT) Alkaline Phosphatase 78 Total Protein 6.0 Albumin 2.8 Blood Type O POSITIVE Antibody Screen NEGATIVE White Blood Count 7.7 Red Blood Count 4.24 Hemoglobin 10.1 Hematocrit 32.2 Mean Corpuscular Volume 75.8 Mean Corpuscular Hemoglobin 23.8 Mean Corpuscular Hemoglobin 31.4 Concent Red Cell Distribution Width 16.8 Platelet Count 192 Mean Platelet Volume 8.6 Assessment and Plan Plan 1. Change dressing later today 2. PT for arm 3. nephrology consulted for hyperkalemia and transplant med [facility] Discharge Planning likely tomorrow Alli Sauceda MD Dec 08, 2016 08:30
[2016-12-08] MEDS ORDERED: LISINOPRIL 20 MG TAB PO SCH (09:00)
[2016-12-08] MEDS ORDERED: MAGNESIUM GLUCONATE 500 MG PO SCH (09:00)
[2016-12-08] MEDS: CHOLECALCIFEROL (VIT D3) LIQ 400 UNITS/ML 50 ML BOTTLE PO SCH (09:00)
[2016-12-08] MEDS: FLUTICASONE PROPIONATE 50 MCG/ACT 16 GM NASAL SPRAY EACH NARE SCH ×2 (09:00→20:54)
[2016-12-08] MEDS: TACROLIMUS 1 MG CAP PO SCH ×4 (09:00→20:54)
[2016-12-08] MEDS ORDERED: PANTOPRAZOLE SOD 40 MG DELAYED RELEASE TAB PO SCH (09:00)
[2016-12-08] MEDS ORDERED: NON-FORMULARY DRUG (Lisinopril-Hctz 1 TAB) PO SCH (09:00)
[2016-12-08] MEDS: HYDROCHLOROTHIAZIDE 25 MG TAB PO SCH (09:52)
[2016-12-08] MEDS: VITAMIN B CMPLX/VITC/FOLIC AC CAP PO SCH (09:54)
[2016-12-08] MEDS: ATORVASTATIN 40 MG TAB PO SCH (09:54)
[2016-12-08] MEDS: PANTOPRAZOLE SOD 20 MG DELAYED RELEASE TAB PO SCH (09:56)
[2016-12-08] MEDS: METOPROLOL SUCCINATE 50 MG EXTENDED RELEASE TAB PO SCH (09:56)
[2016-12-08] MEDS: hydrALAZINE HCL 25 MG TAB PO SCH ×3 (09:57→17:26)
[2016-12-08] MEDS: predniSONE 10 MG TAB PO SCH (09:57)
[2016-12-08] MEDS: SODIUM BICARBONATE 650 MG TAB PO SCH ×2 (09:57→17:26)
[2016-12-08] MEDS: ASPIRIN 81 MG CHEW TAB PO SCH (09:57)
[2016-12-08] MEDS ORDERED: SODIUM BICARBONATE 8.4% SOLN 50 MEQ/50 ML VIAL IV PUSH ONE (10:00)
[2016-12-08] MEDS: SODIUM POLYSTYRENE SULFONATE SUSP 15 GM/60 ML CUP PO ONE ×2 (10:10→13:02)
--- NOTE | 2016-12-08 10:46 | PD.CONS ---
HPI Service Nephrology Consult Requested By Dr. Sauceda Reason for Consult Kidney transplant Primary Care Physician Kiera Cesar MD History of Present Illness Patient is a 56-year-old black male with history of end-stage renal disease status post kidney transplant in 2008, diabetes, hypertension, he has diabetic nephropathy and has chronic dysfunction of the allograft with a creatinine ranging between 2.2-2.5, he has developed occlusion of the outlet of the AV fistula and was here last month, he saw Dr. Sauceda who recommended the ligation of the AV fistula and this was done yesterday, patient has not developed hyperkalemia potassium is 6.5. He denies any chest pains or shortness of breath he complained of pain in his surgical wound and the IV is slow to work with. It causes him pain. Review of Systems Constitutional: COMPLAINS OF: Fatigue Musculoskeletal: COMPLAINS OF: Joint pain, Muscle aches, Stiffness, Back pain Past Family Social History Allergies: Coded Allergies: Banana (Verified Allergy, Severe, HIVES, 11/26/16) Beet (Verified Allergy, Severe, HIVES, 11/26/16) Pea (Verified Allergy, Severe, HIVES, 11/26/16) Latex (Verified Allergy, Unknown, 11/26/16) Uncoded Allergies: FRESH TOMATO (Allergy, Severe, 12/04/16) HIVES CAN HAVE KETCHUP Past Medical History Renal transplant recipient 2008 Diabetes mellitus 2009 Diarrhea recurrent 2014. ESRD (end stage renal disease) due to high blood pressure. (2008). Hypertension 2008 Hypothyroidism Past Surgical History AV fistula hernia repair ACL repair Kidney transplant Kidney biopsy Reported Medications Reported Meds & Active Scripts Active Protonix (Pantoprazole Sodium) 20 Mg Tab 20 Mg PO DAILY Hydralazine (Hydralazine HCl) 100 Mg Tab 25 Mg PO TID Take with meals Lisinopril-Hctz 20-25 Mg Tab 1 Tab PO DAILY Metoprolol Succinate ER 24 HR (Metoprolol Succinate) 100 Mg Tab 100 Mg PO DAILY Levothyroxine (Levothyroxine Sodium) 25 Mcg Tab 25 Mcg PO DAILY Amlodipine (Amlodipine Besylate) 10 Mg Tab 10 Mg PO DAILY Atorvastatin (Atorvastatin Calcium) 40 Mg Tab 40 Mg PO EVERY OTHER DAY 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 Lantus Inj (Insulin Glargine) 1,000 Unit/10 Ml Vial 25 Units SQ DAILY Carefine Pen Needle [id number] 1 Mis Mis 1 Box .ROUTE QID Humalog Inj (Insulin Human Lispro) 1,000 Unit/10 Ml Vial 4 Units SQ TID less than 70:0units;150-200: 2units; 201-250:4units;251-300: 6units; 301-350: 8units; more than 350: 12units. Zofran (Ondansetron HCl) 4 Mg Tab 4 Mg PO Q12HR PRN Baclofen 10 Mg Tab 10 Mg PO Q8HR PRN 7 Days Reported Fluticasone Nasal [place] 50 Mcg/Act Naspr 50 Mcg EACH NARE BID 50 mcg/spray Vitamin D (Cholecalciferol) 400 Unit/Ml Drops 400 Units PO DAILY Magnesium Gluconate 500 Mg Tab 500 Mg PO DAILY Valganciclovir 450 Mg Tab 450 Mg PO DAILY Sodium Bicarbonate 650 Mg Tab 1,300 Mg PO BIDPC Prograf (Tacrolimus) 1 Mg Cap 1 Mg PO BID Mycophenolate (Mycophenolate Mofetil) 500 Mg Tab 500 Mg PO BID Deltasone (Prednisone) 20 Mg Tab 10 Mg PO DAILY Nephrocaps (B-Complex W/ C & Folic Acid) 1 Cap 1 Cap PO DAILY If on dialysis, take after treatment. Active Ordered Medications Current Medications Medications (Trade) Dose Ordered Sig/Yasmany Route Start Time Stop Time Status Last Admin (Aspirin Chew) 81 mg DAILY PO 12/08/16 09:00 12/08/16 09:57 (Roxicodone) 5 mg Q4H PRN PO 12/07/16 14:15 (Dilaudid) 2 mg Q4H PRN PO 12/07/16 14:15 (Morphine Inj) 2 mg Q1H PRN IV 12/07/16 14:15 12/08/16 05:38 (Heparin Inj) 5,000 units Q8H SQ 12/08/16 14:00 (Norvasc) 10 mg DAILY PO 12/08/16 09:00 12/08/16 09:54 (Nephrocaps) 1 cap DAILY PO 12/08/16 09:00 12/08/16 09:54 (Lioresal) 10 mg Q8HR PRN PO 12/07/16 14:15 (Vitamin D Liq) 400 units DAILY PO 12/08/16 09:00 (Flonase Sergio Spr) 2 spray BID EACH NARE 12/07/16 21:00 (Apresoline) 25 mg TID PO 12/07/16 18:00 12/08/16 09:57 (Levemir Inj) 25 units DAILY SQ 12/08/16 09:00 12/08/16 08:22 (Synthroid) 25 mcg DAILY@06 PO 12/08/16 06:00 12/08/16 05:38 (Cellcept) 500 mg BID@,18 PO 12/07/16 18:00 12/08/16 05:38 (Protonix) 20 mg DAILY PO 12/08/16 09:00 12/08/16 09:56 (Deltasone) 10 mg DAILY PO 12/08/16 09:00 12/08/16 09:57 (Sodium Bicarbonate) 1,300 mg BIDPC PO 12/07/16 18:00 12/08/16 09:57 (Prograf) 1 mg BID PO 12/07/16 21:00 12/07/16 20:39 (Valcyte) 450 mg DAILY PO 12/08/16 09:00 12/08/16 09:57 (NovoLOG INJ) 4 units TID SQ 12/07/16 18:00 Patient Own Medication PT OWN MED: MAGNES... DAILY PO 12/08/16 09:00 Hold (Toprol Xl) 100 mg DAILY PO 12/08/16 09:00 12/08/16 09:56 (Zofran Odt) 4 mg Q12H PRN PO 12/07/16 15:30 12/07/16 17:59 Miscellaneous Information ALL NURSING DEPARTME... UNSCH PRN .XX 12/07/16 14:36 12/08/16 14:35 (Prinivil) 20 mg DAILY PO 12/08/16 09:00 12/08/16 09:54 (Hydrodiuril) 25 mg DAILY PO 12/08/16 09:00 12/08/16 09:52 (Zofran Inj) 4 mg Q6H PRN IV PUSH 12/07/16 19:15 12/07/16 19:11 (D50w (Vial) Inj) 25 ml UNSCH PRN IV PUSH 12/07/16 21:00 (Glucagon Inj) 1 mg UNSCH PRN OTHER 12/07/16 21:00 (Tylenol) 650 mg Q4H PRN PO 12/07/16 21:45 (Prograf) 4 mg BID PO 12/08/16 09:00 12/08/16 09:56 Family History Noncontributory Social History He denies smoking or alcohol Physical Exam Vital Signs Vital Signs Date Time Temp Pulse Resp B/P Pulse Ox O2 Delivery O2 Flow Rate FiO2 12/08/16 07:30 98.5 75 20 165/89 99 12/08/16 06:18 72 12/08/16 05:06 75 12/08/16 04:45 76 12/08/16 03:25 75 12/08/16 03:08 98.3 65 168/97 100 12/08/16 02:00 68 12/08/16 01:00 66 12/08/16 00:00 66 12/07/16 23:00 98.6 64 141/87 100 12/07/16 23:00 71 12/07/16 22:00 64 12/07/16 21:00 72 12/07/16 20:00 70 12/07/16 19:00 75 12/07/16 19:00 98.3 64 153/87 100 12/07/16 18:03 74 12/07/16 17:53 98.6 56 18 172/96 100 12/07/16 17:53 72 12/07/16 17:12 18 12/07/16 17:00 63 12/07/16 16:00 58 12 135/82 99 Nasal Cannula 2 12/07/16 15:30 66 15 143/78 98 Nasal Cannula 2 12/07/16 15:15 67 16 135/75 98 Nasal Cannula 2 12/07/16 15:00 67 14 137/80 98 Nasal Cannula 2 12/07/16 14:45 67 14 158/90 94 Room Air 12/07/16 14:35 97.6 69 17 159/94 99 Room Air Physical Exam GENERAL: Well-nourished, well-developed patient. SKIN: Warm and dry. HEAD: Normocephalic. EYES: No scleral icterus. No injection or drainage. NECK: Supple, trachea midline. No JVD or lymphadenopathy. CARDIOVASCULAR: Regular rate and rhythm without murmurs, gallops, or rubs. RESPIRATORY: Breath sounds equal bilaterally. No accessory muscle use. GASTROINTESTINAL: Abdomen soft, non-tender, nondistended. EXTREMITIES: No cyanosis, or edema. Left arm surgical wound which is close NEUROLOGICAL: Awake, alert, and oriented x 3. Non-focal. Laboratory Laboratory Tests Test 12/07/16 12/08/16 10:46 05:34 Sodium Level 143 138 Potassium Level 5.6 6.5 Chloride Level 115 112 Carbon Dioxide Level 18.4 17.1 Anion Gap 10 9 Blood Urea Nitrogen 49 43 Creatinine 2.49 2.52 Estimat Glomerular Filtration 33 32 Rate Random Glucose 87 143 Calcium Level 8.4 8.3 Total Bilirubin 0.2 Aspartate Amino Transf 12 (AST/SGOT) Alanine Aminotransferase 13 (ALT/SGPT) Alkaline Phosphatase 78 Total Protein 6.0 Albumin 2.8 Blood Type O POSITIVE Antibody Screen NEGATIVE White Blood Count 7.7 Red Blood Count 4.24 Hemoglobin 10.1 Hematocrit 32.2 Mean Corpuscular Volume 75.8 Mean Corpuscular Hemoglobin 23.8 Mean Corpuscular Hemoglobin 31.4 Concent Red Cell Distribution Width 16.8 Platelet Count 192 Mean Platelet Volume 8.6 Result Diagram: 12/08/1634 12/08/1634 Assessment and Plan Problem List: (1) Renal transplant recipient Plan: Patient is on prednisone and Prograf 5 mg twice a day along with CellCept 500 twice a day, he's been maintained with a creatinine of 2.2-2.5 He does have hyperkalemia which is getting worse and I ordered treatment calcium gluconate D50 insulin and sodium bicarbonate and Kayexalate However his IV is slow to work with and sodium bicarbonate was not given about three fourth of dose (2) Hyperkalemia Plan: Will recheck hold LUDA inhibitor (3) Diabetes mellitus Plan: Patient is on insulin (4) Hypertension Plan: Continue to monitor Chito Pereira MD Dec 08, 2016 10:46
--- NOTE | 2016-12-08 12:28 | PD.VS.DC ---
Corinne Meadows Marta [facility] 12/08/16 1228: Discharge Summary Admission Date: Dec 07, 2016 at 14:19 Discharge Date: Dec 10, 2016 Admission Diagnosis: (1) ESRD (end stage renal disease) Discharge Diagnosis: (1) ESRD (end stage renal disease) Status: Acute Brief History from admission Patient is a 56-year-old AA male with history of end-stage renal disease status post kidney transplant in 2008, diabetes, hypertension, he has diabetic nephropathy and has chronic dysfunction of the allograft with a creatinine ranging between 2.2-2.5, he has developed occlusion of the outlet of the AV fistula and was here last month, he saw Dr. Sauceda who recommended the ligation of the AV fistula and this was done on 12/07/16 Procedure(s): LEFT upper extremity access excision Significant Findings Laboratory Tests Test 12/07/16 12/08/16 10:46 05:34 Potassium Level 5.6 MEQ/L 6.5 MEQ/L (3.5-5.1) (3.5-5.1) Chloride Level 115 MEQ/L 112 MEQ/L (98-107) (98-107) Carbon Dioxide Level 18.4 MEQ/L 17.1 MEQ/L (21.0-32.0) (21.0-32.0) Blood Urea Nitrogen 49 MG/DL (7-18) 43 MG/DL (7-18) Creatinine 2.49 MG/DL 2.52 MG/DL (0.60-1.30) (0.60-1.30) Estimat Glomerular Filtration 33 ML/MIN (>89) 32 ML/MIN (>89) Rate Calcium Level 8.4 MG/DL 8.3 MG/DL (8.5-10.1) (8.5-10.1) Aspartate Amino Transf 12 U/L (15-37) (AST/SGOT) Total Protein 6.0 GM/DL (6.4-8.2) Albumin 2.8 GM/DL (3.4-5.0) Red Blood Count 4.24 MIL/MM3 (4.50-5.90) Hemoglobin 10.1 GM/DL (13.0-17.0) Hematocrit 32.2 % (39.0-51.0) Mean Corpuscular Volume 75.8 FL (80.0-100.0) Mean Corpuscular Hemoglobin 23.8 PG (27.0-34.0) Mean Corpuscular Hemoglobin 31.4 % Concent (32.0-36.0) Random Glucose 143 MG/DL (74-106) Hospital Course: Patient is a 56-year-old AA male with history of end-stage renal disease status post kidney transplant in 2008, diabetes, hypertension, he has diabetic nephropathy and has chronic dysfunction of the allograft with a creatinine ranging between 2.2-2.5, he has developed occlusion of the outlet of the AV fistula and was here last month, he saw Dr. Sauceda who recommended the ligation of the AV fistula and this was done on 12/07/16. Patient developed hyperkalemia ( K-6.5 on POD 1), Nephrology consulted and managed hyperkalemia. Pt c/o incisional pain and was w/o any motor deficits. Denied hand pain, Strong palpable L radial pulse present, Pt doing well post operatively w/o complications Discharge Condition: Good Discharge Disposition: Discharge Home Discharge Instructions: Follow up in our OPC on 12/18/16 at 1:00pm Call the office to report and new onset fever, chills, increased redness, swelling, drainage or odor to incision sites MAY Shower NO Tub Baths, Swimming, or Submerging in the ocean while incisions are healing Take prescribed pain medication as needed with an over the counter stool softener as it may cause constipation Do not apply any creams or ointments to incision sites as it may loosen the surgical glue Corinne SALAS [facility]/[place] [phone] Any questions or concerns: Call [facility] Heart and Vascular Surgery at [facility] [phone] Alli Sauceda MD 12/11/16 0651: Pt adm for L UE Access excision for thrombophlebitis. Did well. Post-op hyperkalemia treated medically. D/c POD#3 with normal L UE function. Discharge Summary Discharge Date: Dec 11, 2016 Admission Diagnosis: Discharge Diagnosis: Discharge Condition: Good Discharge Disposition: Discharge Home Corinne Meadows Dec 08, 2016 12:28 Alli Sauceda MD Dec 11, 2016 06:51
--- NOTE | 2016-12-08 13:20 | MP ---
cc: ALLI SAUCEDA MD DATE OF SURGERY: 12/07/2016 PREOPERATIVE DIAGNOSIS Thrombophlebitis left upper extremity aneurysmal fistula. POSTOPERATIVE DIAGNOSIS Thrombophlebitis left upper extremity aneurysmal fistula. PROCEDURE Excision of left brachiocephalic arteriovenous fistula. ATTENDING SURGEON Alli Sauceda [employer] SURGEON Nicola Albert ANESTHESIA General. INDICATION Mr. Gabriel is a 56-year-old gentleman with a history of end-stage renal disease who has a functioning kidney transplant. 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 He has intense thrombophlebitis and I do not think the fistula is salvageable. After discussion with the patient he was offered access excision. He understands that if his kidney transplant fails he will need a new dialysis access. DESCRIPTION OF PROCEDURE Informed consent was obtained from the patient. He was taken to the operating room and placed supine on the operating table. An appropriate timeout was taken to ensure the patient's identity, operative site and planned procedure. The administration of two grams of Ancef was initiated prior to skin incision and will be discontinued after the single preoperative dose. Everyone in the room agreed with te timeout and we proceeded. His left upper extremity was prepped and draped and incised longitudinally along the course of the fistula with a 10 blade, carried down to subcutaneous tissue with electrocautery. The fistula was carefully dissected free from the antecubitum all the way up nearly to the deltopectoral groove. Side branches were ligated with 3-0 silk. The proximal and distal ends of the fistula were clamped with a right-angle clamp and at this point the radial artery had a palpable pulse at the wrist. A thrombophlebitic vein was excised in toto and the proximal and distal ends were oversewn with 4-0 Prolene suture. Hemostasis was achieved. The wound was irrigated, infiltrated with Marcaine and closed with 2-0 Polysorb, 3-0 Polysorb and 4-0 Monocryl. The sponge and needle counts were correct at the end of the case. I was present and scrubbed for the entire procedure. Alli Sauceda MD RJF/FELIX /4:43 PM /1:17 PM
[2016-12-08] MEDS: HEPARIN SODIUM - SQ 10,000 UNITS/ML VIAL SQ SCH ×2 (13:45→20:54)
[2016-12-08 14:00] LABS: BICARBONATE 20.6 MEQ/L (21.0-32.0); POTASSIUM 4.8 MEQ/L (3.5-5.1)
[2016-12-09] VITALS (29 sets, daily range): BP systolic 127–146; BP diastolic 75–93; PULSE 68–90; RESP 18–20; TEMP 98.1–98.8; O2SAT 98–99
[2016-12-09] MEDS: LEVOTHYROXINE SODIUM 25 MCG TAB PO SCH (05:38)
[2016-12-09] MEDS: MYCOPHENOLATE MOFETIL 500 MG TAB PO SCH ×2 (05:39→17:49)
[2016-12-09] MEDS: HEPARIN SODIUM - SQ 10,000 UNITS/ML VIAL SQ SCH ×3 (05:39→21:01)
[2016-12-09] MEDS: LOW DOSE INSULIN NOVOLOG SUPPLEMENTAL SCALE SQ SCH ×4 (06:01→20:56)
[2016-12-09] MEDS: INSULIN DETEMIR 100 UNITS/ML VIAL SQ SCH (08:42)
[2016-12-09] MEDS: METOPROLOL SUCCINATE 50 MG EXTENDED RELEASE TAB PO SCH (08:43)
[2016-12-09] MEDS: hydrALAZINE HCL 25 MG TAB PO SCH ×3 (08:43→17:49)
[2016-12-09] MEDS: SODIUM BICARBONATE 650 MG TAB PO SCH ×2 (08:43→17:49)
[2016-12-09] MEDS: HYDROCHLOROTHIAZIDE 25 MG TAB PO SCH (08:43)
[2016-12-09] MEDS: TACROLIMUS 1 MG CAP PO SCH ×4 (08:45→20:57)
[2016-12-09] MEDS: PANTOPRAZOLE SOD 20 MG DELAYED RELEASE TAB PO SCH (08:45)
[2016-12-09] MEDS: predniSONE 10 MG TAB PO SCH (08:45)
[2016-12-09] MEDS: VITAMIN B CMPLX/VITC/FOLIC AC CAP PO SCH (08:46)
[2016-12-09] MEDS: ASPIRIN 81 MG CHEW TAB PO SCH (08:46)
[2016-12-09] MEDS: CHOLECALCIFEROL (VIT D3) LIQ 400 UNITS/ML 50 ML BOTTLE PO SCH (08:47)
[2016-12-09] MEDS: FLUTICASONE PROPIONATE 50 MCG/ACT 16 GM NASAL SPRAY EACH NARE SCH ×2 (08:47→21:00)
[2016-12-09] MEDS: INSULIN ASPART 1,000 UNITS/10 ML VIAL SQ SCH ×3 (08:47→17:50)
--- NOTE | 2016-12-09 09:05 | PD.VS.PN ---
Subjective POD #: 2 Procedure(s): LEFT upper extremity access excision Subjective/Hospital Course Pt sitting up in bed eating breakfast Pt in good spirits laughing this am Pt reported incisional pain Pain controlled Pt denies hand pain/motor intact Objective Vitals/I&O Date Time Temp Pulse Resp B/P Pulse Ox O2 Delivery O2 Flow Rate FiO2 12/09/16 06:00 72 12/09/16 05:00 70 12/09/16 04:44 71 12/09/16 04:00 72 12/09/16 03:59 98.6 72 145/87 99 12/09/16 03:00 70 12/09/16 02:00 72 12/09/16 01:00 68 12/09/16 00:00 70 12/08/16 23:00 98.2 75 128/86 98 12/08/16 23:00 78 12/08/16 22:00 76 12/08/16 21:00 80 12/08/16 20:00 72 12/08/16 19:00 98.9 73 149/99 99 12/08/16 19:00 76 12/08/16 18:03 76 12/08/16 17:00 78 12/08/16 16:30 97.1 78 20 145/86 94 12/08/16 16:00 75 12/08/16 15:00 80 12/08/16 14:02 76 12/08/16 13:04 76 12/08/16 12:00 80 12/08/16 11:49 97.7 76 20 132/81 98 12/08/16 11:00 79 12/08/16 10:00 76 12/08/16 09:00 80 12/09/16 12/09/16 12/09/16 07:00 15:00 23:00 Intake Total 240 ml Output Total 750 ml Balance -510 ml Exam: GENERAL: A&OX3, NAD SKIN: Warm and dry/ Left arm incision intact with surgical glue c/d with no R/D/ S/O MUSCULOSKELETAL: No cyanosis, or edema to UE, m/s intact Pulses: strong palpable 2+ L/R radial pulses Incisions: C/D w/o R/D/S/ Laboratory Laboratory Tests Test 12/08/16 13:19 Sodium Level 141 Potassium Level 4.8 Chloride Level 112 Carbon Dioxide Level 20.6 Anion Gap 8 Blood Urea Nitrogen 46 Creatinine 2.67 Estimat Glomerular Filtration 30 Rate Random Glucose 54 Calcium Level 9.4 Assessment and Plan Plan Plan Continue PT/Left arm Leave left arm incision open to air Corinne SALAS [facility]/[place] [phone] Discharge Planning Pt OK for D/C from a vascular standpoint tomorrow am Corinne Meadows Dec 09, 2016 09:05
[2016-12-09 10:04] LABS: BICARBONATE 20.5 MEQ/L (21.0-32.0); POTASSIUM 5.1 MEQ/L (3.5-5.1)
--- NOTE | 2016-12-09 18:22 | HHI.NPPN ---
Subjective History of Present Illness hx of cadaveric kidney transplant Objective Data Data 12/08/16 12/09/16 19:00 07:00 Intake Total 630 ml 240 ml Output Total 1200 ml 750 ml Balance -570 ml -510 ml Intake Oral 480 ml 240 ml IV Total 150 ml Output Urine Total 1200 ml 750 ml # Bowel Movements 0 Vital Signs Date Time Temp Pulse Resp B/P Pulse Ox O2 Delivery O2 Flow Rate FiO2 12/09/16 18:01 76 12/09/16 17:03 74 12/09/16 16:43 98.2 70 20 142/86 98 12/09/16 16:00 70 12/09/16 15:00 78 12/09/16 14:17 78 12/09/16 13:05 74 12/09/16 12:36 98.8 70 18 140/90 98 12/09/16 12:00 70 12/09/16 11:00 72 12/09/16 10:17 20 12/09/16 10:00 78 12/09/16 09:02 98.1 90 20 146/93 98 12/09/16 09:00 80 12/09/16 08:00 90 12/09/16 07:00 74 12/09/16 06:00 72 12/09/16 05:00 70 12/09/16 04:44 71 12/09/16 04:00 72 12/09/16 03:59 98.6 72 145/87 99 12/09/16 03:00 70 12/09/16 02:00 72 12/09/16 01:00 68 12/09/16 00:00 70 12/08/16 23:00 98.2 75 128/86 98 12/08/16 23:00 78 12/08/16 22:00 76 12/08/16 21:00 80 12/08/16 20:00 72 12/08/16 19:00 98.9 73 149/99 99 12/08/16 19:00 76 -: 12/08/16 0534 12/09/16 0849 Physical Exam General Appearance: Well Developed, Well Nourished Neck Neck Exam: Neck Supple Pulmonary Resp Exam: Clear Bilaterally, Breath Sounds Equal Cardiology CV Exam: Regular, Normal Sinus Rhythm Gastrointestinal/Abdomen GI Exam: Soft, Non-Tender, Bowel Sounds Present Integumentary Skin Exam: Clear Extremeties Extremities Exam: No Edema Neurologic Neuro Exam: Alert, Oriented Assessment/Plan Problem List: (1) Renal transplant recipient Plan: Patient is on prednisone and Prograf 5 mg twice a day along with CellCept 500 twice a day, K 5.1 OK to dc watch K in diet he should get diabetic diet with K restriction (2) Hyperkalemia Plan: K 5.1 change diet to 1800 ADA K restriction stop Lisinopril start HCTZ 25 mg daily (3) Diabetes mellitus Plan: Patient is on insulin (4) Hypertension Plan: Continue to monitor Chito Pereira MD Dec 09, 2016 18:22
[2016-12-10] VITALS (26 sets, daily range): BP systolic 122–137; BP diastolic 74–87; PULSE 62–98; RESP 18–20; TEMP 97.4–98.7; O2SAT 96–99
[2016-12-10] MEDS: HEPARIN SODIUM - SQ 10,000 UNITS/ML VIAL SQ SCH ×3 (04:56→20:29)
[2016-12-10] MEDS: LEVOTHYROXINE SODIUM 25 MCG TAB PO SCH (06:17)
[2016-12-10] MEDS: MYCOPHENOLATE MOFETIL 500 MG TAB PO SCH ×2 (06:17→17:26)
[2016-12-10] MEDS: LOW DOSE INSULIN NOVOLOG SUPPLEMENTAL SCALE SQ SCH ×4 (06:18→20:36)
[2016-12-10] MEDS: ASPIRIN 81 MG CHEW TAB PO SCH ×2 (08:36→08:48)
[2016-12-10] MEDS: FLUTICASONE PROPIONATE 50 MCG/ACT 16 GM NASAL SPRAY EACH NARE SCH ×2 (08:37→20:28)
[2016-12-10] MEDS: INSULIN ASPART 1,000 UNITS/10 ML VIAL SQ SCH ×3 (08:38→16:26)
[2016-12-10] MEDS: CHOLECALCIFEROL (VIT D3) LIQ 400 UNITS/ML 50 ML BOTTLE PO SCH (08:38)
[2016-12-10] MEDS: TACROLIMUS 1 MG CAP PO SCH ×4 (08:47→20:29)
[2016-12-10] MEDS: predniSONE 10 MG TAB PO SCH (08:48)
[2016-12-10] MEDS: METOPROLOL SUCCINATE 50 MG EXTENDED RELEASE TAB PO SCH (08:49)
[2016-12-10] MEDS: HYDROCHLOROTHIAZIDE 25 MG TAB PO SCH (08:49)
[2016-12-10] MEDS: hydrALAZINE HCL 25 MG TAB PO SCH ×3 (08:49→17:26)
[2016-12-10] MEDS: ATORVASTATIN 40 MG TAB PO SCH (08:49)
[2016-12-10] MEDS: VITAMIN B CMPLX/VITC/FOLIC AC CAP PO SCH (08:49)
[2016-12-10] MEDS: PANTOPRAZOLE SOD 20 MG DELAYED RELEASE TAB PO SCH (08:50)
[2016-12-10] MEDS: SODIUM BICARBONATE 650 MG TAB PO SCH ×2 (08:50→17:25)
[2016-12-10] MEDS: INSULIN DETEMIR 100 UNITS/ML VIAL SQ SCH (08:58)
--- NOTE | 2016-12-10 09:58 | PD.VS.PN ---
Subjective POD #: 3 Procedure(s): LEFT upper extremity access excision Subjective/Hospital Course resting comfortably appreciate nephrology input for management of CRTx Objective Vitals/I&O Date Time Temp Pulse Resp B/P Pulse Ox O2 Delivery O2 Flow Rate FiO2 12/10/16 09:49 74 12/10/16 09:48 98.0 72 18 130/80 98 12/10/16 07:26 68 12/10/16 06:00 63 12/10/16 05:01 64 12/10/16 04:00 70 12/10/16 03:00 70 12/10/16 03:00 98.5 67 18 131/87 97 12/10/16 02:00 66 12/10/16 01:00 66 12/10/16 00:00 70 12/09/16 23:00 70 12/09/16 23:00 98.8 69 18 127/75 98 12/09/16 22:00 68 12/09/16 21:00 70 12/09/16 20:00 72 12/09/16 19:00 78 12/09/16 19:00 98.6 71 18 133/82 98 12/09/16 18:01 76 12/09/16 17:03 74 12/09/16 16:43 98.2 70 20 142/86 98 12/09/16 16:00 70 12/09/16 15:00 78 12/09/16 14:17 78 12/09/16 13:05 74 12/09/16 12:36 98.8 70 18 140/90 98 12/09/16 12:00 70 12/09/16 11:00 72 12/09/16 10:17 20 12/09/16 10:00 78 12/10/16 12/10/16 12/10/16 07:00 15:00 23:00 Intake Total 480 ml Output Total 600 ml Balance -120 ml Exam: L UE incision with mild swelling Incision ok good hand strength palpable radial pulse Assessment and Plan Plan Looks good appreciate renal input Discharge Planning tomorrow Alli Sauceda MD Dec 10, 2016 09:58
[2016-12-10] MEDS: ONDANSETRON HCL 4 MG/2 ML VIAL IV PUSH PRN (12:28)
[2016-12-11] VITALS (11 sets, daily range): BP systolic 133–134; BP diastolic 79–91; PULSE 62–90; RESP 16–18; TEMP 98.2; O2SAT 96–99
[2016-12-11] MEDS: HEPARIN SODIUM - SQ 10,000 UNITS/ML VIAL SQ SCH (05:10)
[2016-12-11] MEDS: MYCOPHENOLATE MOFETIL 500 MG TAB PO SCH (05:43)
[2016-12-11] MEDS: LEVOTHYROXINE SODIUM 25 MCG TAB PO SCH (05:43)
[2016-12-11] MEDS: LOW DOSE INSULIN NOVOLOG SUPPLEMENTAL SCALE SQ SCH (05:48)
--- NOTE | 2016-12-11 07:01 | PD.VS.PN ---
Subjective Procedure(s): LEFT upper extremity access excision Subjective/Hospital Course resting comfortably no complaints pain controlled dany diet Objective Vitals/I&O Date Time Temp Pulse Resp B/P Pulse Ox O2 Delivery O2 Flow Rate FiO2 12/11/16 06:03 64 12/11/16 05:00 65 12/11/16 04:00 66 12/11/16 03:00 77 12/11/16 03:00 98.2 66 18 134/79 99 12/11/16 02:00 64 12/11/16 01:00 66 12/11/16 00:00 62 12/10/16 23:00 68 12/10/16 23:00 98.1 64 18 137/79 99 12/10/16 22:00 72 12/10/16 21:00 64 12/10/16 20:00 62 12/10/16 19:37 98.7 65 18 122/75 99 12/10/16 19:00 74 12/10/16 18:00 68 12/10/16 17:17 98 12/10/16 16:02 68 12/10/16 15:21 97.4 68 18 134/74 97 12/10/16 15:19 68 12/10/16 14:05 68 12/10/16 13:26 78 12/10/16 12:42 97.4 78 20 128/74 96 12/10/16 12:19 65 12/10/16 10:42 76 12/10/16 09:49 74 12/10/16 09:48 98.0 72 18 130/80 98 12/10/16 07:26 68 12/11/16 12/11/16 12/11/16 07:00 15:00 23:00 Intake Total 480 ml Output Total 1150 ml Balance -670 ml Exam: L UE incision c/d/i palpable radial pulse good motor strength Assessment and Plan Assessment: (1) ESRD (end stage renal disease) Status: Acute Plan healing well, hand and arm ok D/c today Discharge Planning today Alli Sauceda MD Dec 11, 2016 07:01
[2016-12-11] MEDS: ONDANSETRON HCL 4 MG/2 ML VIAL IV PUSH PRN (08:35)
[2016-12-11] MEDS: SODIUM BICARBONATE 650 MG TAB PO SCH (08:38)
[2016-12-11] MEDS: VITAMIN B CMPLX/VITC/FOLIC AC CAP PO SCH (08:39)
[2016-12-11] MEDS: predniSONE 10 MG TAB PO SCH (08:39)
[2016-12-11] MEDS: PANTOPRAZOLE SOD 20 MG DELAYED RELEASE TAB PO SCH (08:39)
[2016-12-11] MEDS: ASPIRIN 81 MG CHEW TAB PO SCH (08:39)
[2016-12-11] MEDS: TACROLIMUS 1 MG CAP PO SCH ×2 (08:40→10:03)
[2016-12-11] MEDS: METOPROLOL SUCCINATE 50 MG EXTENDED RELEASE TAB PO SCH (08:41)
[2016-12-11] MEDS: HYDROCHLOROTHIAZIDE 25 MG TAB PO SCH (08:41)
[2016-12-11] MEDS: hydrALAZINE HCL 25 MG TAB PO SCH (08:41)
[2016-12-11] MEDS: FLUTICASONE PROPIONATE 50 MCG/ACT 16 GM NASAL SPRAY EACH NARE SCH (08:42)
[2016-12-11] MEDS: INSULIN DETEMIR 100 UNITS/ML VIAL SQ SCH (08:45)
[2016-12-11] MEDS: INSULIN ASPART 1,000 UNITS/10 ML VIAL SQ SCH (08:46)
[2016-12-11] MEDS ORDERED: TACR5CAP PO (10:10)
--- NOTE | 2016-12-11 10:39 | HHI.NPPN ---
Subjective History of Present Illness hx of cadaveric kidney transplant Objective Data Data 12/10/16 12/11/16 19:00 07:00 Intake Total 0 ml 480 ml Output Total 1150 ml Balance 0 ml -670 ml Intake Oral 480 ml IV Total 0 ml Output Urine Total 1150 ml Vital Signs Date Time Temp Pulse Resp B/P Pulse Ox O2 Delivery O2 Flow Rate FiO2 12/11/16 10:00 66 12/11/16 09:00 66 12/11/16 08:30 98.2 70 16 133/91 96 12/11/16 08:30 70 12/11/16 07:00 90 12/11/16 06:03 64 12/11/16 05:00 65 12/11/16 04:00 66 12/11/16 03:00 77 12/11/16 03:00 98.2 66 18 134/79 99 12/11/16 02:00 64 12/11/16 01:00 66 12/11/16 00:00 62 12/10/16 23:00 68 12/10/16 23:00 98.1 64 18 137/79 99 12/10/16 22:00 72 12/10/16 21:00 64 12/10/16 20:00 62 12/10/16 19:37 98.7 65 18 122/75 99 12/10/16 19:00 74 12/10/16 18:00 68 12/10/16 17:17 98 12/10/16 16:02 68 12/10/16 15:21 97.4 68 18 134/74 97 12/10/16 15:19 68 12/10/16 14:05 68 12/10/16 13:26 78 12/10/16 12:42 97.4 78 20 128/74 96 12/10/16 12:19 65 12/10/16 10:42 76 -: 12/08/16 0534 12/09/16 0849 Physical Exam General Appearance: Well Developed, Well Nourished Neck Neck Exam: Neck Supple Pulmonary Resp Exam: Clear Bilaterally, Breath Sounds Equal Cardiology CV Exam: Regular, Normal Sinus Rhythm Gastrointestinal/Abdomen GI Exam: Soft, Non-Tender, Bowel Sounds Present Integumentary Skin Exam: Clear Extremeties Extremities Exam: No Edema Neurologic Neuro Exam: Alert, Oriented Assessment/Plan Problem List: (1) Renal transplant recipient Plan: Patient is on prednisone and Prograf 5 mg twice a day along with CellCept 500 twice a day, K 5.1 OK to dc watch K in diet he should get diabetic diet with K restriction I changed Tacrolimus on discharge to 5 mg caps bid FU in January at Clinic off ACEI due to Hyperkalemia (2) Hyperkalemia Plan: K 5.1 change diet to 1800 ADA K restriction stop Lisinopril start HCTZ 25 mg daily (3) Diabetes mellitus Plan: Patient is on insulin (4) Hypertension Plan: Continue to monitor Chito Pereira MD Dec 11, 2016 10:39
== END 2016-12-11 10:34 | disposition home or self-care (01) ==
LOC: HSDC 08:39 → HSDI 14:19 → HCIN 16:46
PROVIDERS: ADMIT Surgery; ATTEND Surgery
DX: T82.898A Other specified complication of vascular prosthetic devices, implants and grafts, initial encounter (principal); I10 Essential (primary) hypertension; E11.21 Type 2 diabetes mellitus with diabetic nephropathy; E03.9 Hypothyroidism, unspecified; E87.5 Hyperkalemia; I80.8 Phlebitis and thrombophlebitis of other sites; E11.51 Type 2 diabetes mellitus with diabetic peripheral angiopathy without gangrene; K21.9 Gastro-esophageal reflux disease without esophagitis; D64.9 Anemia, unspecified; E78.5 Hyperlipidemia, unspecified; Z91.040 Latex allergy status; Z91.010 Allergy to peanuts; Z91.018 Allergy to other foods; Z94.0 Kidney transplant status; Y83.2 Surgical operation with anastomosis, bypass or graft as the cause of abnormal reaction of the patient, or of later complication, without mention of misadventure at the time of the procedure; Z79.4 Long term (current) use of insulin
CPT/HCPCS: 01844; 37607; 76937; 80048; 80053; 82948; 85027; 86850; 86900; 86901; 97110; 97116; 97161; G0378; G8987; G8988; J0610; J0690; J1815; J1940; J2270; J2405; J3010; J7040; J7507; J7512; J7517

== ENCOUNTER 2017-02-07 18:52 | Emergency (ER) | payer MEDICAID, MEDICARE ==
[~2017-02-07 18:52] MED LIST changes: -ACET300T4 PO; +HUMA100I3 SQ; -HUMALOG SQ; +TACR5CAP PO; -TYLETAB34 PO
[2017-02-07 18:54] VITALS: BP 162/99; PULSE 66; RESP 20; TEMP 98.6; O2SAT 96
[2017-02-07] MEDS ORDERED: SODIUM CHLORIDE 0.9% FLUSH 10 ML FLUSH IVF PRN (19:30)
--- NOTE | 2017-02-07 19:45 | PD ---
HPI Chief Complaint: Respiratory Symptoms Time Seen by Provider: 19:19 Travel History International Travel<30 days: No Contact w/Intl Traveler<30days: No Traveled to known affect area: No History of Present Illness HPI Patient is a 56-year-old male with a history of end-stage renal disease status post kidney transplant in 2013 presents emergency department with bilateral hand swelling bilateral leg swelling and BREATH. Patient states he going on for the past 4 days. He states when he elevates his legs he goes down significantly but afterwards and just walking a short distance swelling comes right back. Denies any cough or congestion or sputum production. States his next check up with Dr. 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 Denies any fever denies any abdominal pain. PFSH Past Medical History Hx Anticoagulant Therapy: No Asthma: No Blood Disorders: No Anxiety: No Depression: No Heart Rhythm Problems: No Cancer: No Cardiac Catheterization: No Cardiovascular Problems: Yes High Cholesterol: Yes Chemotherapy: No Chest Pain: No Congestive Heart Failure: Yes (2007) COPD: No Cerebrovascular Accident: No Diabetes: Yes Patient Takes Glucophage: No Diminished Hearing: No Endocrine: Yes Gastrointestinal Disorders: Yes (GERD) Genitourinary: No Hepatitis: No Hiatal Hernia: No Hypertension: Yes Immune Disorder: No Medical other: Yes (left arm fistula ) Musculoskeletal: No Neurologic: No Psychiatric: No Reproductive: No Respiratory: No Immunizations Current: No Radiation Therapy: No Renal Failure: Yes (KIDNEY TRANSPLANT) Sleep Apnea: No Thyroid Disease: Yes Past Surgical History Abdominal Surgery: Yes (ABD AND INGUINAL HERNIA REPAIR) AICD: No Body Medical Devices: KIDNEY TRANPLANT R Cardiac Surgery: No Coronary Artery Bypass Graft: No Ear Surgery: No Eye Surgery: No Genitourinary Surgery: Yes (KIDNEY TRANSPLANT 2008) Gynecologic Surgery: No Joint Replacement: No Oral Surgery: No Pacemaker: No Thoracic Surgery: No Other Surgery: Yes (fistula, ACL, hernia, kidney transplant 2008) Family History Family Myocardial Infarction: Yes (dad [place] 1994) Social History Alcohol Use: No Tobacco Use: No Substance Use: No Allergies-Medications (Allergen,Severity, Reaction): Coded Allergies: Banana (Verified Allergy, Severe, HIVES, 02/07/17) Beet (Verified Allergy, Severe, HIVES, 02/07/17) Pea (Verified Allergy, Severe, HIVES, 02/07/17) Latex (Verified Allergy, Unknown, 02/07/17) Uncoded Allergies: FRESH TOMATO (Allergy, Severe, 12/04/16) HIVES CAN HAVE KETCHUP Reported Meds & Prescriptions Reported Meds & Active Scripts Active Lasix (Furosemide) 40 Mg Tab 40 Mg PO BID Humalog Kwikpen Pen Inj (Insulin Lispro (Human) Inj) 300 Unit/3 Ml Pen 4 Units SQ TID Lantus Inj (Insulin Glargine) 1,000 Unit/10 Ml Vial 25 Units SQ DAILY Carefine Pen Needle [id number] 1 Mis Mis 1 Box .ROUTE QID Tacrolimus 5 Mg Cap 5 Mg PO Q12H Protonix (Pantoprazole Sodium) 20 Mg Tab 20 Mg PO DAILY Hydralazine (Hydralazine HCl) 100 Mg Tab 25 Mg PO TID Take with meals Lisinopril-Hctz 20-25 Mg Tab 1 Tab PO DAILY Metoprolol Succinate ER 24 HR (Metoprolol Succinate) 100 Mg Tab 100 Mg PO DAILY Levothyroxine (Levothyroxine Sodium) 25 Mcg Tab 25 Mcg PO DAILY Amlodipine (Amlodipine Besylate) 10 Mg Tab 10 Mg PO DAILY Atorvastatin (Atorvastatin Calcium) 40 Mg Tab 40 Mg PO EVERY OTHER DAY please check with your guitar maker hand about checking immunosuppresant levels when you go up to 40 mg daily. Zofran (Ondansetron HCl) 4 Mg Tab 4 Mg PO Q12HR PRN Baclofen 10 Mg Tab 10 Mg PO Q8HR PRN 7 Days Reported Fluticasone Nasal [place] 50 Mcg/Act Naspr 50 Mcg EACH NARE BID 50 mcg/spray Vitamin D (Cholecalciferol) 400 Unit/Ml Drops 400 Units PO DAILY Magnesium Gluconate 500 Mg Tab 500 Mg PO DAILY Valganciclovir 450 Mg Tab 450 Mg PO DAILY Sodium Bicarbonate 650 Mg Tab 1,300 Mg PO BIDPC Prograf (Tacrolimus) 1 Mg Cap 1 Mg PO BID Mycophenolate (Mycophenolate Mofetil) 500 Mg Tab 500 Mg PO BID Deltasone (Prednisone) 20 Mg Tab 10 Mg PO DAILY Nephrocaps (B-Complex W/ C & Folic Acid) 1 Cap 1 Cap PO DAILY If on dialysis, take after treatment. Review of Systems Except as stated in HPI: all other systems reviewed are Neg Physical Exam Narrative GENERAL: Well-developed, well-nourished in no obvious distress. SKIN: Focused skin assessment warm/dry. Surgical scar in the left antecubital fossa. Palpable thrill. HEAD: Atraumatic. Normocephalic. EYES: Pupils equal and round. No scleral icterus. No injection or drainage. ENT: No nasal bleeding or discharge. Mucous membranes pink and moist. NECK: Trachea midline. No JVD. CARDIOVASCULAR: Regular rate and rhythm. No murmur appreciated. RESPIRATORY: No accessory muscle use. Clear to auscultation. Breath sounds equal bilaterally. GASTROINTESTINAL: Abdomen soft, non-tender, nondistended. Hepatic and splenic margins not palpable. No abdominal tenderness, no tenderness over the graft site. MUSCULOSKELETAL: No obvious deformities. No clubbing. No cyanosis. 2+ pitting edema to bilateral lower extremities the distalmost tibia as well as edema at the hands. NEUROLOGICAL: Awake and alert. No obvious cranial nerve deficits. Motor grossly within normal limits. Normal speech. PSYCHIATRIC: Appropriate mood and affect; insight and judgment normal. Data Data Last Documented VS Vital Signs Date Time Temp Pulse Resp B/P Pulse Ox O2 Delivery O2 Flow Rate FiO2 02/07/17 22:27 Room Air 02/07/17 22:26 64 16 184/112 96 02/07/17 18:54 98.6 Orders Electrocardiogram (02/07/17 19:30) Complete Blood Count With Diff (02/07/17 19:30) Comprehensive Metabolic Panel (02/07/17 19:30) Magnesium (Mg) (02/07/17 19:30) Prothrombin Time / Inr (Pt) (02/07/17 19:30) Act Partial Throm Time (Ptt) (02/07/17 19:30) Ecg Monitoring (02/07/17 19:30) Iv Access Insert/Monitor (02/07/17 19:30) Oximetry (02/07/17 19:30) Oxygen Administration (02/07/17 19:30) Sodium Chloride 0.9% Flush (Ns Flush) (02/07/17 19:30) Chest, Pa & Lat (02/07/17 19:30) Furosemide (Lasix) (02/07/17 21:30) Sodium Polysty Sulfate Liq (Kayexalate L (02/07/17 21:30) Labs Laboratory Tests Test 02/07/17 19:45 White Blood Count 6.8 TH/MM3 Red Blood Count 4.86 MIL/MM3 Hemoglobin 11.5 GM/DL Hematocrit 37.1 % Mean Corpuscular Volume 76.4 FL Mean Corpuscular Hemoglobin 23.7 PG Mean Corpuscular Hemoglobin 31.0 % Concent Red Cell Distribution Width 17.4 % Platelet Count 226 TH/MM3 Mean Platelet Volume 8.1 FL Neutrophils (%) (Auto) 82.1 % Lymphocytes (%) (Auto) 10.4 % Monocytes (%) (Auto) 5.0 % Eosinophils (%) (Auto) 0.4 % Basophils (%) (Auto) 2.1 % Neutrophils # (Auto) 5.6 TH/MM3 Lymphocytes # (Auto) 0.7 TH/MM3 Monocytes # (Auto) 0.3 TH/MM3 Eosinophils # (Auto) 0.0 TH/MM3 Basophils # (Auto) 0.1 TH/MM3 CBC Comment AUTO DIFF Differential Comment AUTO DIFF CONFIRMED Platelet Estimate NORMAL Platelet Morphology Comment NORMAL Helmet Cells OCC Prothrombin Time 10.2 SEC Prothromb Time International 0.9 RATIO Ratio Activated Partial 29.5 SEC Thromboplast Time Sodium Level 138 MEQ/L Potassium Level 5.7 MEQ/L Chloride Level 112 MEQ/L Carbon Dioxide Level 19.5 MEQ/L Anion Gap 7 MEQ/L Blood Urea Nitrogen 51 MG/DL Creatinine 3.16 MG/DL Estimat Glomerular Filtration 25 ML/MIN Rate Random Glucose 165 MG/DL Calcium Level 8.0 MG/DL Magnesium Level 2.1 MG/DL Total Bilirubin 0.2 MG/DL Aspartate Amino Transf 20 U/L (AST/SGOT) Alanine Aminotransferase 16 U/L (ALT/SGPT) Alkaline Phosphatase 83 U/L Total Protein 6.4 GM/DL Albumin 2.8 GM/DL [facility] Medical Decision Making Medical Screen Exam Complete: Yes Emergency Medical Condition: Yes Interpretation(s) EKG shows sinus rhythm with normal axis normal R-wave progression. T-wave inversions in II, III, and F aVF with T-wave inversions in V4 through V6. Comparison to 11/05/2016 shows no change. Differential Diagnosis Renal failure, acute renal rejection unlikely, hyperkalemia, fluid overload. Narrative Course Patient 56-year-old male with a history of renal transplant. According to notes the patient has had slowly worsening kidney function even of his grafts. His baseline creatinine runs between 2-2.5, is in excess of 3 today. Potassium elevated to 5.7, no EKG changes. The patient's chest x-ray is clear he has been satting well. Patient was discussed with his guitar maker hand Dr. Slater who knows him well. He recommended the patient be given a dose of Kayexalate here as well as started on Lasix 40 mg twice a day to help with swelling and to call his office on Wednesday for an appointment. This was relayed to the patient. I think he is okay to go home especially after conferring with Dr. Slater this was all discussed with him and discussed return to ED criteria Diagnosis Primary Impression: Hyperkalemia Additional Instructions: Call Dr. Pereira in the morning to make an appointment this week. If you begin to have abdominal pain, decreased urine output, fevers or weakness or swelling worsens or shortness of breath occurs return to emergency department. Med/Other Pt SpecificInfo: Prescription(s) given Scripts Furosemide (Lasix)40 Mg Tab40 Mg PO BID #60 TAB Ref 0 Prov:Alli Sanchez MD 02/07/17 Disposition: 01 DISCHARGE HOME Condition: Stable Alli Sanchez MD Feb 07, 2017 19:45
--- NOTE | 2017-02-07 20:05 | RADRPT ---
EXAM DATE/TIME: 02/07/2017 19:39 [facility] COMPARISON: CHEST PA & LAT, December 04, 2016, 12:48. INDICATIONS : Chest pain MEDICAL HISTORY : Hypercholesterolemia. Hypertension. Congestive heart failure. Hyperlipidemia. SURGICAL HISTORY : Kidney transplant. Left ACL repair. AVF, left arm. ENCOUNTER: Initial ACUITY: 3 days PAIN SCORE: 4/10 LOCATION: chest FINDINGS: PA and lateral views of the chest. The lungs are clear. Cardiomediastinal silhouette within normal li mits. No evidence of pleural effusion or pneumothorax. CONCLUSION: No acute cardiopulmonary disease identified. Patrick Rosales MD on February 07, 2017 at 20:02 Board Certified Radiologist. This report was verified electronically.
[2017-02-07 20:10] LABS: AUTOMATED NEUTROPHIL # 5.6 TH/MM3 (1.8-7.7); BASOPHIL # 0.1 TH/MM3 (0-0.2); BASOPHIL % 2.1 % (0.0-2.0); EOSINOPHIL % 0.4 % (0.0-4.0); HEMATOCRIT 37.1 % (39.0-51.0); LYMPH % 10.4 % (9.0-44.0); LYMPHOCYTE # 0.7 TH/MM3 (1.0-4.8); MEAN CELL VOLUME 76.4 FL (80.0-100.0); MEAN CORPUSCULAR HEMOGLOBIN 23.7 PG (27.0-34.0); NEUT % 82.1 % (16.0-70.0); PLATELET COUNT 226 TH/MM3 (150-450); RED BLOOD COUNT 4.86 MIL/MM3 (4.50-5.90); RED CELL DISTRIBUTION WIDTH 17.4 % (11.6-17.2); WHITE BLOOD COUNT 6.8 TH/MM3 (4.0-11.0)
[2017-02-07 20:14] LABS: HEMO FLAGS AUTO DIFF
[2017-02-07 20:31] LABS: ALT (GPT) 16 U/L (12-78)
[2017-02-07 20:32] LABS: APTT (PATIENT) 29.5 SEC (24.3-30.1); INTERNATIONAL NORMALIZED RATIO 0.9 RATIO; PROTHROMBIN TIME - PATIENT 10.2 SEC (9.8-11.6)
[2017-02-07 20:33] LABS: ALKALINE PHOSPHATASE 83 U/L (45-117); TOTAL BILIRUBIN ADULT 0.2 MG/DL (0.2-1.0)
[2017-02-07 20:46] LABS: ANION GAP 7 MEQ/L (5-15); AST (GOT) 20 U/L (15-37); BICARBONATE 19.5 MEQ/L (21.0-32.0); BLOOD UREA NITROGEN 51 MG/DL (7-18); CHLORIDE 112 MEQ/L (98-107); GLOMERULAR FILTRATION RATE 25 ML/MIN (>89); MAGNESIUM 2.1 MG/DL (1.5-2.5); POTASSIUM 5.7 MEQ/L (3.5-5.1); SODIUM (NA) 138 MEQ/L (136-145)
[2017-02-07 20:54] LABS: SCAN/DIFF AUTO DIFF CONFIRMED
[2017-02-07 20:55] LABS: PLATELET ESTIMATE SMEAR NORMAL (NORMAL); PLATELET MORPHOLOGY NORMAL (NORMAL)
[2017-02-07 20:57] LABS: HELMET CELLS OCC (NORMAL)
[2017-02-07] MEDS ORDERED: SODIUM POLYSTYRENE SULFONATE SUSP 15 GM/60 ML CUP PO ONE (21:30)
[2017-02-07] MEDS ORDERED: FUROSEMIDE 40 MG TAB PO ONE (21:30)
[2017-02-07] MEDS ORDERED: FURO1TAB60 PO (21:47)
[2017-02-07 22:26] VITALS: BP 184/112
--- NOTE | 2017-02-08 16:37 | EKG ---
Date Performed: 02/07/2017 Time Performed: 19:57:49 PTAGE: 56 years EKG: Sinus rhythm POSSIBLE RIGHT VENTRICULAR CONDUCTION DELAY ST DEVIATION AND MODERATE T-WAVE ABNORMALITY, CONSIDER L ATERAL ISCHEMIA ST DEVIATION AND MODERATE T-WAVE ABNORMALITY, CONSIDER INFERIOR ISCHEMIA ABNORMAL ECG PREVIOUS TRACING : 11/12/2016 13.41 Since previous tracing, no significant change noted DOCTOR: Mayte Briggs Interpretating Date/Time 02/08/2017 16:36:23
[2017-02-19] MEDS ORDERED: LISI20TA3 PO (08:39)
[2017-02-19] MEDS ORDERED: ATOR40TA16 PO (08:39)
[2017-02-19] MEDS ORDERED: PANT20 PO (08:39)
[2017-02-19] MEDS ORDERED: METO100T9 PO (08:39)
[2017-02-19] MEDS ORDERED: LEVO25TA4 PO (08:39)
[2017-02-19] MEDS ORDERED: AMLO10TA2 PO (08:39)
[2017-02-19] MEDS ORDERED: HYDR-3801 PO (08:39)
[2017-03-22] MEDS ORDERED: FURO1TAB60 PO (08:57)
[2017-03-29] MEDS ORDERED: LANTINJ SQ (08:43)
== END 2017-02-07 22:32 | disposition home or self-care (01) ==
LOC: NEPC 18:52
DX: E87.5 Hyperkalemia (principal); N18.6 End stage renal disease; E11.22 Type 2 diabetes mellitus with diabetic chronic kidney disease; I50.9 Heart failure, unspecified; I13.2 Hypertensive heart and chronic kidney disease with heart failure and with stage 5 chronic kidney disease, or end stage renal disease; Z79.4 Long term (current) use of insulin; Z79.899 Other long term (current) drug therapy; Z94.0 Kidney transplant status
CPT/HCPCS: 71020; 80053; 83735; 85025; 85610; 85730; 93005; 99285

== ENCOUNTER 2017-02-12 08:04 | Emergency (ER) | payer MEDICARE, OTHER ==
[~2017-02-12] VITALS: Ht 180.3 cm; Wt 76.0 kg
[~2017-02-12 08:04] MED LIST changes: +FURO1TAB60 PO
[2017-02-12 08:12] VITALS: BP 172/96; PULSE 70; RESP 16; TEMP 98.3; O2SAT 97
--- NOTE | 2017-02-12 08:28 | PD ---
HPI Chief Complaint: Respiratory Symptoms Time Seen by Provider: 08:13 Travel History International Travel<30 days: No Contact w/Intl Traveler<30days: No Traveled to known affect area: No History of Present Illness HPI The patient is a 56-year-old [place] male who presents to the emergency department for shortness of breath. Patient notes intermittent shortness of breath over the last week which progressed this morning. The shortness of breath is worse with exertion as well as lying supine. Patient also complains of intermittent chest pain which he describes as sharp, intermittent, and feels like "somebody standing on my chest ". The patient also complains of some right lower quadrant abdominal pain where his kidney transplant is located. The patient is followed by his research study assistant, Dr. Pereira. The patient states he does have a history of similar symptoms in the past, was admitted to the hospital one year ago where he states he had an echocardiogram performed on his heart. The patient's symptoms are moderate, worse with exertion, and alleviated at rest. The patient denies any fever, chills, sweats, or new cough. He denies any associated vomiting with his abdominal pain but does complain of mild nausea. He denies any significant edema to the lower extremities. PFSH Past Medical History Hx Anticoagulant Therapy: No Asthma: No Blood Disorders: No Anxiety: No Depression: No Heart Rhythm Problems: No Cancer: No Cardiac Catheterization: No Cardiovascular Problems: Yes High Cholesterol: Yes Chemotherapy: No Chest Pain: No Congestive Heart Failure: Yes (2007) COPD: No Cerebrovascular Accident: No Diabetes: Yes Patient Takes Glucophage: No Diminished Hearing: No Endocrine: Yes Gastrointestinal Disorders: Yes (GERD) Genitourinary: No Hepatitis: No Hiatal Hernia: No Hypertension: Yes Immune Disorder: No Musculoskeletal: No Neurologic: No Psychiatric: No Reproductive: No Respiratory: No Immunizations Current: No Radiation Therapy: No Renal Failure: Yes (KIDNEY TRANSPLANT) Sleep Apnea: No Thyroid Disease: Yes Past Surgical History Abdominal Surgery: Yes (ABD AND INGUINAL HERNIA REPAIR) AICD: No Body Medical Devices: KIDNEY TRANPLANT R Cardiac Surgery: No Coronary Artery Bypass Graft: No Ear Surgery: No Eye Surgery: No Genitourinary Surgery: Yes (R KIDNEY TRANSPLANT 2008) Gynecologic Surgery: No Joint Replacement: No Oral Surgery: No Pacemaker: No Thoracic Surgery: No Other Surgery: Yes (fistula, ACL, hernia, kidney transplant 2008) Family History Family Myocardial Infarction: Yes (dad [place] 1994) Social History Alcohol Use: No Tobacco Use: No Substance Use: No Allergies-Medications (Allergen,Severity, Reaction): Coded Allergies: banana (Unverified Allergy, Severe, HIVES, 02/12/17) beet (Unverified Allergy, Severe, HIVES, 02/12/17) peas (Unverified Allergy, Severe, HIVES, 02/12/17) latex (Unverified Allergy, Unknown, 02/12/17) Uncoded Allergies: FRESH TOMATO (Allergy, Severe, 12/04/16) HIVES CAN HAVE KETCHUP Reported Meds & Prescriptions Reported Meds & Active Scripts Active Lasix (Furosemide) 40 Mg Tab 40 Mg PO BID Humalog Kwikpen Pen Inj (Insulin Lispro (Human) Inj) 300 Unit/3 Ml Pen 4 Units SQ TID Tacrolimus 5 Mg Cap 5 Mg PO Q12H Protonix (Pantoprazole Sodium) 20 Mg Tab 20 Mg PO DAILY Hydralazine (Hydralazine HCl) 100 Mg Tab 25 Mg PO TID Take with meals Lisinopril-Hctz 20-25 Mg Tab 1 Tab PO DAILY Metoprolol Succinate ER 24 HR (Metoprolol Succinate) 100 Mg Tab 100 Mg PO DAILY Levothyroxine (Levothyroxine Sodium) 25 Mcg Tab 25 Mcg PO DAILY Amlodipine (Amlodipine Besylate) 10 Mg Tab 10 Mg PO DAILY Atorvastatin (Atorvastatin Calcium) 40 Mg Tab 40 Mg PO EVERY OTHER DAY please check with your research study assistant about checking immunosuppresant levels when you go up to 40 mg daily. Zofran (Ondansetron HCl) 4 Mg Tab 4 Mg PO Q12HR PRN Baclofen 10 Mg Tab 10 Mg PO Q8HR PRN 7 Days Reported Lantus Inj (Insulin Glargine) 1,000 Unit/10 Ml Vial 20 Units SQ DAILY Fluticasone Nasal [place] 50 Mcg/Act Naspr 50 Mcg EACH NARE BID 50 mcg/spray Vitamin D (Cholecalciferol) 400 Unit/Ml Drops 400 Units PO DAILY Magnesium Gluconate 500 Mg Tab 500 Mg PO DAILY Sodium Bicarbonate 650 Mg Tab 1,300 Mg PO BIDPC Mycophenolate (Mycophenolate Mofetil) 500 Mg Tab 500 Mg PO BID Deltasone (Prednisone) 20 Mg Tab 10 Mg PO DAILY Nephrocaps (B-Complex W/ C & Folic Acid) 1 Cap 1 Cap PO DAILY If on dialysis, take after treatment. Review of Systems Except as stated in HPI: all other systems reviewed are Neg General / Constitutional: No: Fever Cardiovascular: Positive: Chest Pain or Discomfort, Dyspnea on exertion Respiratory: Positive: Shortness of Breath, No: Cough Gastrointestinal: Positive: Nausea, Abdominal Pain, No: Vomiting Musculoskeletal: No: Edema Physical Exam Narrative GENERAL: Awake, alert, pleasant 56 year old male who appears his stated age and is in no acute respiratory distress. SKIN: Focused skin assessment warm/dry. HEAD: Atraumatic. Normocephalic. EYES: Pupils equal and round. No scleral icterus. No injection or drainage. ENT: No nasal bleeding or discharge. Mucous membranes pink and moist. NECK: Trachea midline. No JVD. CARDIOVASCULAR: Regular rate and rhythm. No murmur appreciated. RESPIRATORY: No accessory muscle use. Minimally diminished breath sounds in the bases. GASTROINTESTINAL: Abdomen soft, kidney transplant noted right lower quadrant with minimal tenderness. No guarding or rigidity. Back: Lipoma noted over the right scapula. No CVA tenderness. MUSCULOSKELETAL: No obvious deformities. No clubbing. No cyanosis. No edema. NEUROLOGICAL: Awake and alert. No obvious cranial nerve deficits. Motor grossly within normal limits. Normal speech. PSYCHIATRIC: Appropriate mood and affect; insight and judgment normal. Data Data Last Documented VS Vital Signs Date Time Temp Pulse Resp B/P Pulse Ox O2 Delivery O2 Flow Rate FiO2 02/12/17 08:37 97 Room Air 02/12/17 08:36 69 17 179/101 02/12/17 08:12 98.3 Orders Complete Blood Count With Diff (02/12/17 08:22) Comprehensive Metabolic Panel (02/12/17 08:22) B-Type Natriuretic Peptide (02/12/17 08:22) Act Partial Throm Time (Ptt) (02/12/17 08:22) Prothrombin Time / Inr (Pt) (02/12/17 08:22) Magnesium (Mg) (02/12/17 08:22) Ckmb (Isoenzyme) Profile (02/12/17 08:22) Troponin I (02/12/17 08:22) Urinalysis - C+S If Indicated (02/12/17 08:22) Iv Access Insert/Monitor (02/12/17 08:22) Electrocardiogram (02/12/17 08:22) Ecg Monitoring (02/12/17 08:22) Oximetry (02/12/17 08:22) Oxygen Administration (02/12/17 08:22) Chest, Single Ap (02/12/17 08:22) Sodium Chloride 0.9% Flush (Ns Flush) (02/12/17 08:30) Us Kidney / Transplant (02/12/17 ) CKMB (02/12/17 08:40) CKMB% (02/12/17 08:40) Labs Laboratory Tests Test 02/12/17 02/12/17 08:40 10:40 Urine Color LIGHT-YELLOW Urine Turbidity CLEAR Urine pH 6.0 Urine Specific [place] 1.010 Urine Protein 300 mg/dL Urine Glucose (UA) TRACE mg/dL Urine Ketones NEG mg/dL Urine Occult Blood NEG Urine Nitrite NEG Urine Bilirubin NEG Urine Urobilinogen LESS THAN 2.0 MG/DL Urine Leukocyte Esterase NEG Urine RBC LESS THAN 1 /hpf Urine WBC 2 /hpf Microscopic Urinalysis Comment CULT NOT INDICATED Sodium Level 137 MEQ/L Potassium Level 4.9 MEQ/L Chloride Level 109 MEQ/L Carbon Dioxide Level 20.1 MEQ/L Anion Gap 8 MEQ/L Blood Urea Nitrogen 45 MG/DL Creatinine 2.87 MG/DL Estimat Glomerular Filtration 28 ML/MIN Rate Random Glucose 145 MG/DL Calcium Level 7.9 MG/DL Magnesium Level 2.0 MG/DL Total Bilirubin 0.3 MG/DL Aspartate Amino Transf 27 U/L (AST/SGOT) Alanine Aminotransferase 18 U/L (ALT/SGPT) Alkaline Phosphatase 78 U/L Total Creatine Kinase 206 U/L Creatine Kinase MB 3.8 NG/ML Troponin I 0.04 NG/ML Total Protein 6.0 GM/DL Albumin 2.5 GM/DL White Blood Count 7.2 TH/MM3 Red Blood Count 4.79 MIL/MM3 Hemoglobin 11.6 GM/DL Hematocrit 36.2 % Mean Corpuscular Volume 75.6 FL Mean Corpuscular Hemoglobin 24.2 PG Mean Corpuscular Hemoglobin 32.1 % Concent Red Cell Distribution Width 17.6 % Platelet Count 216 TH/MM3 Mean Platelet Volume 8.6 FL Neutrophils (%) (Auto) 69.1 % Lymphocytes (%) (Auto) 16.6 % Monocytes (%) (Auto) 11.7 % Eosinophils (%) (Auto) 1.6 % Basophils (%) (Auto) 1.0 % Neutrophils # (Auto) 5.0 TH/MM3 Lymphocytes # (Auto) 1.2 TH/MM3 Monocytes # (Auto) 0.8 TH/MM3 Eosinophils # (Auto) 0.1 TH/MM3 Basophils # (Auto) 0.1 TH/MM3 CBC Comment DIFF FINAL Differential Comment Prothrombin Time 10.7 SEC Prothromb Time International 1.0 RATIO Ratio Activated Partial 29.7 SEC Thromboplast Time MDM Medical Decision Making Medical Screen Exam Complete: Yes Emergency Medical Condition: Yes Medical Record Reviewed: Yes Interpretation(s) EKG reveals normal sinus rhythm with a rate of 67. Inverted T waves noted in lead V5, V6, 3, and aVF. No significant changes when compared to EKG performed February 07, 2017. Laboratory Tests Test 02/12/17 02/12/17 08:40 10:40 Urine Color LIGHT-YELLOW Urine Turbidity CLEAR Urine pH 6.0 Urine Specific [place] 1.010 Urine Protein 300 mg/dL Urine Glucose (UA) TRACE mg/dL Urine Ketones NEG mg/dL Urine Occult Blood NEG Urine Nitrite NEG Urine Bilirubin NEG Urine Urobilinogen LESS THAN 2.0 MG/DL Urine Leukocyte Esterase NEG Urine RBC LESS THAN 1 /hpf Urine WBC 2 /hpf Microscopic Urinalysis Comment CULT NOT INDICATED Sodium Level 137 MEQ/L Potassium Level 4.9 MEQ/L Chloride Level 109 MEQ/L Carbon Dioxide Level 20.1 MEQ/L Anion Gap 8 MEQ/L Blood Urea Nitrogen 45 MG/DL Creatinine 2.87 MG/DL Estimat Glomerular Filtration 28 ML/MIN Rate Random Glucose 145 MG/DL Calcium Level 7.9 MG/DL Magnesium Level 2.0 MG/DL Total Bilirubin 0.3 MG/DL Aspartate Amino Transf 27 U/L (AST/SGOT) Alanine Aminotransferase 18 U/L (ALT/SGPT) Alkaline Phosphatase 78 U/L Total Creatine Kinase 206 U/L Creatine Kinase MB 3.8 NG/ML Troponin I 0.04 NG/ML Total Protein 6.0 GM/DL Albumin 2.5 GM/DL White Blood Count 7.2 TH/MM3 Red Blood Count 4.79 MIL/MM3 Hemoglobin 11.6 GM/DL Hematocrit 36.2 % Mean Corpuscular Volume 75.6 FL Mean Corpuscular Hemoglobin 24.2 PG Mean Corpuscular Hemoglobin 32.1 % Concent Red Cell Distribution Width 17.6 % Platelet Count 216 TH/MM3 Mean Platelet Volume 8.6 FL Neutrophils (%) (Auto) 69.1 % Lymphocytes (%) (Auto) 16.6 % Monocytes (%) (Auto) 11.7 % Eosinophils (%) (Auto) 1.6 % Basophils (%) (Auto) 1.0 % Neutrophils # (Auto) 5.0 TH/MM3 Lymphocytes # (Auto) 1.2 TH/MM3 Monocytes # (Auto) 0.8 TH/MM3 Eosinophils # (Auto) 0.1 TH/MM3 Basophils # (Auto) 0.1 TH/MM3 CBC Comment DIFF FINAL Differential Comment Prothrombin Time 10.7 SEC Prothromb Time International 1.0 RATIO Ratio Activated Partial 29.7 SEC Thromboplast Time Last Impressions Chest X-Ray 02/12/17 0822 Signed Impressions: Service Date/Time: Sunday, February 12, 2017 08:25 - CONCLUSION: No acute disease. Jad Romero Jr., MD Renal Ultrasound 02/12/17 0000 Signed Impressions: Service Date/Time: Sunday, February 12, 2017 08:44 - CONCLUSION: 1. Normal appearance of the patient's renal transplant. Resistive index is normal throughout. Kam Linn MD Differential Diagnosis Differential diagnosis includes kidney transplant rejection, pulmonary edema, congestive heart failure, cardiomyopathy, acute coronary syndrome, electrolyte abnormality, pneumonia, bronchitis. Narrative Course IV was established, labs are drawn and sent, and the patient was placed on cardiac telemetry monitoring and continuous pulse oximetry monitoring. EKG was ordered and interpreted. Chest x-ray was obtained. Ultrasound of the renal transplant reveals a normal appearance to the patient's renal transplant, resistive index is normal throughout. The patient's chest x-ray was clear. The patient's creatinine was 2.87, down from 3.181 week ago. Potassium was 4.9 with slight hemolysis noted. The patient's chest x-rays clear, no evidence of pulmonary edema. Troponin is 0.03, electrolytes are essentially unremarkable, patient's vitals are stable. I reviewed the EMR, the patient had a nuclear medicine myocardial perfusion scan performed May 20, 2015 which was low risk, negative, EF of 64%. Patient has mild dyspnea with exertion, could be deconditioning versus cardiomyopathy. However, vitals are stable he is advised to follow-up with his research study assistant and primary physician. The patient will be provided a copy of his labs, ultrasound results, and x-ray results at discharge. Procedures Procedure Narrative Nursing staff was unable to obtain IV access. Therefore, I placed a 20-gauge 1.88 inch ultrasound-guided IV in the right upper extremity, there is good blood return and the IV flowed easily. Diagnosis Primary Impression: Dyspnea on exertion Patient Instructions: General Instructions Additional Instructions: Please provide a patient a copy of his x-ray results, ultrasound results, and lab results at discharge. Follow-up with your primary physician and research study assistant. You may benefit from outpatient echocardiogram. Return if symptoms worsen or progress. Med/Other Pt SpecificInfo: No Change to Meds Disposition: 01 DISCHARGE HOME Condition: Stable Zeb Perkins MD Feb 12, 2017 08:28
[2017-02-12] MEDS ORDERED: SODIUM CHLORIDE 0.9% FLUSH 10 ML FLUSH IVF PRN (08:30)
[2017-02-12] MEDS ORDERED: LANTUS2P SQ (08:35)
[2017-02-12 08:36] VITALS: BP 179/101; PULSE 69; RESP 17; O2SAT 98
[2017-02-12 08:37] VITALS: O2SAT 97
--- NOTE | 2017-02-12 09:32 | RADRPT ---
EXAM DATE/TIME: 02/12/2017 08:25 [facility] COMPARISON: CHEST SINGLE AP, October 31, 2016, 10:57. INDICATIONS : Short of breath, stomach pains, cough. MEDICAL HISTORY : Congestive heart failure. Hypertension Diabetes. SURGICAL HISTORY : None. ENCOUNTER: Initial ACUITY: 1 day PAIN SCORE: 0/10 LOCATION: Bilateral chest FINDINGS: A single view of the chest demonstrates the lungs to be symmetrically aerated without evidence of mas s, infiltrate or effusion. Top normal heart size. Osseous structures are intact. CONCLUSION: No acute disease. Jad Romero Jr., MD on February 12, 2017 at 9:30 Board Certified Radiologist. This report was verified electronically.
[2017-02-12 10:01] LABS: ANION GAP 8 MEQ/L (5-15)
--- NOTE | 2017-02-12 10:07 | RADRPT ---
EXAM DATE/TIME: 02/12/2017 08:44 [facility] COMPARISON: US ARM LEFT VENOUS DOPPLER, November 12, 2016, 14:40. INDICATIONS : Right lower quadrant pain. MEDICAL HISTORY : Hypercholesterolemia. Hypertension. Congestive heart failure. Renal failure. SURGICAL HISTORY : Inguinal hernia repair. Transplant kidney. AV fistula left arm. ENCOUNTER: Subsequent ACUITY: 4-6 days PAIN SCORE: 5/10 LOCATION: Right lower quadrant. MEASUREMENTS: TRANSPLANT KIDNEY: 11.9 x 5.8 x 6.8 cm LOCATION: Right lower quadrant. ARCUATE ARTERIES RESISTIVE INDEX: Upper - 0.71 Mid - 0.66 Lower - 0.51 MAIN RENAL ARTERY VELOCITY: (cm/sec): 86.2 MAIN RENAL VEIN: Patent EXTERNAL ILIAC ARTERY VELOCITY (cm/sec): 165.6 * NORMAL DOPPLER FINDINGS Arcuate arteries - RI = 0.6 - 0.8 Renal artery = under 200 cm/sec Renal vein = May be monophasic with continuous flow or demonstrate some pulsatility with cardiac cycl e FINDINGS: TRANSPLANT KIDNEY: Normal cortical thickness and echotexture. No hydronephrosis, stone, or mass. No peritransplant flu id collection. URINARY BLADDER: Within normal limits given the degree of distension. CONCLUSION: 1. Normal appearance of the patient's renal transplant. Resistive index is normal throughout. Kam Linn MD on February 12, 2017 at 10:04 Board Certified Radiologist. This report was verified electronically.
[2017-02-12 10:10] LABS: ALKALINE PHOSPHATASE 78 U/L (45-117); ALT (GPT) 18 U/L (12-78); BICARBONATE 20.1 MEQ/L (21.0-32.0); BLOOD UREA NITROGEN 45 MG/DL (7-18); CHLORIDE 109 MEQ/L (98-107); GLOMERULAR FILTRATION RATE 28 ML/MIN (>89); POTASSIUM 4.9 MEQ/L (3.5-5.1); SODIUM (NA) 137 MEQ/L (136-145); TOTAL BILIRUBIN ADULT 0.3 MG/DL (0.2-1.0)
[2017-02-12 10:11] LABS: AST (GOT) 27 U/L (15-37); CREATINE KINASE 206 U/L (39-308)
[2017-02-12 10:14] LABS: BLOOD, URINE NEG (NEG); COMMENT (UR) CULT NOT INDICATED; CULTURE IF INDICATED CULT NOT INDICATED; GLUCOSE,URINE TRACE mg/dL (NEG); KETONE, URINE NEG (NEG); NITRITE,URINE NEG (NEG); URINE COLOR LIGHT-YELLOW (YELLW/STRAW)
[2017-02-12 10:23] LABS: CKMB 3.8 NG/ML (0.5-3.6)
[2017-02-12 11:17] LABS: BASOPHIL # 0.1 TH/MM3 (0-0.2); EOSINOPHIL # 0.1 TH/MM3 (0-0.4); EOSINOPHIL % 1.6 % (0.0-4.0); HEMATOCRIT 36.2 % (39.0-51.0); HEMO FLAGS DIFF FINAL; LYMPH % 16.6 % (9.0-44.0); LYMPHOCYTE # 1.2 TH/MM3 (1.0-4.8); MEAN CELL VOLUME 75.6 FL (80.0-100.0); MEAN CORPUSCULAR HEMOGLOBIN 24.2 PG (27.0-34.0); MEAN CORPUSCULAR HGB CONC 32.1 % (32.0-36.0); MONO % 11.7 % (0.0-8.0); NEUT % 69.1 % (16.0-70.0); PLATELET COUNT 216 TH/MM3 (150-450); RED BLOOD COUNT 4.79 MIL/MM3 (4.50-5.90); RED CELL DISTRIBUTION WIDTH 17.6 % (11.6-17.2); WHITE BLOOD COUNT 7.2 TH/MM3 (4.0-11.0)
[2017-02-12 11:31] LABS: PROTHROMBIN TIME - PATIENT 10.7 SEC (9.8-11.6)
[2017-02-12 11:33] LABS: APTT (PATIENT) 29.7 SEC (24.3-30.1)
--- NOTE | 2017-02-12 15:09 | EKG ---
Date Performed: 02/12/2017 Time Performed: 08:25:36 PTAGE: 56 years EKG: Sinus rhythm INCOMPLETE RIGHT BUNDLE BRANCH BLOCK MODERATE T-WAVE ABNORMALITY, CONSIDER LATERAL ISCHEMIA ABNORMAL ECG PREVIOUS TRACING : 02/07/2017 19.57 Since previous tracing, no significant change noted DOCTOR: Rikki Hahn Interpretating Date/Time 02/12/2017 15:07:42
[2017-02-19] MEDS ORDERED: METO100T9 PO (08:39)
[2017-02-19] MEDS ORDERED: AMLO10TA2 PO (08:39)
[2017-02-19] MEDS ORDERED: HYDR-3801 PO (08:39)
[2017-02-19] MEDS ORDERED: LEVO25TA4 PO (08:39)
[2017-02-19] MEDS ORDERED: ATOR40TA16 PO (08:39)
[2017-02-19] MEDS ORDERED: PANT20 PO (08:39)
[2017-02-19] MEDS ORDERED: LISI20TA3 PO (08:39)
[2017-03-22] MEDS ORDERED: FURO1TAB60 PO (08:57)
[2017-03-29] MEDS ORDERED: LANTINJ SQ (08:43)
== END 2017-02-12 12:55 | disposition home or self-care (01) ==
LOC: NEPE 08:04
DX: R06.00 Dyspnea, unspecified (principal); I10 Essential (primary) hypertension; E11.9 Type 2 diabetes mellitus without complications; K21.9 Gastro-esophageal reflux disease without esophagitis; Z79.4 Long term (current) use of insulin
CPT/HCPCS: 71010; 76776; 80053; 81001; 82550; 82552; 83735; 83880; 84484; 85025; 85610; 85730; 93005; 99285

== ENCOUNTER → 2017-03-18 | Outpatient (CLI) | payer MEDICARE ==
[~2017-03-18] MED LIST changes: +HYDR-3533 PO; -INSU-98; +LANTINJ SQ; -TACR1 PO; -VALG1TAB PO
[2017-03-18 08:32] LABS: AUTOMATED NEUTROPHIL # 2.7 TH/MM3 (1.8-7.7); BASOPHIL # 0.1 TH/MM3 (0-0.2); BASOPHIL % 1.3 % (0.0-2.0); EOSINOPHIL # 0.1 TH/MM3 (0-0.4); EOSINOPHIL % 2.1 % (0.0-4.0); HEMATOCRIT 35.6 % (39.0-51.0); HEMO FLAGS DIFF FINAL; LYMPH % 27.3 % (9.0-44.0); LYMPHOCYTE # 1.4 TH/MM3 (1.0-4.8); MEAN CELL VOLUME 75.6 FL (80.0-100.0); MEAN CORPUSCULAR HEMOGLOBIN 23.5 PG (27.0-34.0); MEAN CORPUSCULAR HGB CONC 31.1 % (32.0-36.0); MONO % 17.7 % (0.0-8.0); NEUT % 51.6 % (16.0-70.0); PLATELET COUNT 204 TH/MM3 (150-450); RED BLOOD COUNT 4.71 MIL/MM3 (4.50-5.90); RED CELL DISTRIBUTION WIDTH 16.5 % (11.6-17.2); WHITE BLOOD COUNT 5.3 TH/MM3 (4.0-11.0)
[2017-03-18 08:35] LABS: BLOOD, URINE NEG (NEG); GLUCOSE,URINE NEG (NEG); HYALINE CAST, URINE 1 /lpf (RARE); KETONE, URINE NEG (NEG); NITRITE,URINE NEG (NEG); URINE COLOR LIGHT-YELLOW (YELLW/STRAW)
[2017-03-18 09:05] LABS: AST (GOT) 22 U/L (15-37); BICARBONATE 23.6 MEQ/L (21.0-32.0); BLOOD UREA NITROGEN 64 MG/DL (7-18); GLOMERULAR FILTRATION RATE 24 ML/MIN (>89); GLUCOSE,FASTING 111 MG/DL (74-99)
[2017-03-18 09:17] LABS: ALKALINE PHOSPHATASE 67 U/L (45-117); ALT (GPT) 18 U/L (12-78); FREE T4 0.89 NG/DL (0.76-1.46); HDL CHOLESTEROL 89.8 MG/DL (40.0-60.0); LDL CHOLESTEROL 134 MG/DL (0-99); TOTAL BILIRUBIN ADULT 0.3 MG/DL (0.2-1.0)
[2017-03-18 09:27] LABS: ANION GAP 8 MEQ/L (5-15); CHLORIDE 108 MEQ/L (98-107); SODIUM (NA) 140 MEQ/L (136-145)
== END ==
LOC: CLAB 07:57
PROVIDERS: ATTEND Family Medicine
DX: E03.9 Hypothyroidism, unspecified (principal); E78.00 Pure hypercholesterolemia, unspecified; I12.9 Hypertensive chronic kidney disease with stage 1 through stage 4 chronic kidney disease, or unspecified chronic kidney disease; N18.9 Chronic kidney disease, unspecified; E11.22 Type 2 diabetes mellitus with diabetic chronic kidney disease; R53.83 Other fatigue; Z13.0 Encounter for screening for diseases of the blood and blood-forming organs and certain disorders involving the immune mechanism; Z12.11 Encounter for screening for malignant neoplasm of colon
CPT/HCPCS: 36415; 80053; 80061; 81001; 82043; 84439; 84443; 84481; 85025

== ENCOUNTER → 2017-03-22 | Outpatient (CLI) | payer MEDICARE | LOC: CLAB 08:43 | PROVIDERS: ATTEND Family Medicine | DX: I12.9 Hypertensive chronic kidney disease with stage 1 through stage 4 chronic kidney disease, or unspecified chronic kidney disease (principal); N18.9 Chronic kidney disease, unspecified; E11.22 Type 2 diabetes mellitus with diabetic chronic kidney disease; E78.00 Pure hypercholesterolemia, unspecified; E03.9 Hypothyroidism, unspecified; R53.83 Other fatigue | CPT/HCPCS: 82272 ==

== ENCOUNTER 2017-04-10 19:18 | Emergency (ER) | payer MEDICARE ==
[~2017-04-10] VITALS: Ht 180.3 cm; Wt 75.0 kg
[~2017-04-10 19:18] MED LIST changes: -HYDR-3533 PO; -LANTUS2P SQ
[2017-04-10 19:23] VITALS: BP 153/93; PULSE 72; RESP 16; TEMP 97.5; O2SAT 97
[2017-04-10] MEDS ORDERED: ACETAMINOPHEN/HYDROcodone 325 MG/5 MG TAB PO ONE (20:00)
--- NOTE | 2017-04-10 20:04 | PD ---
HPI Chief Complaint: Injury Time Seen by Provider: 19:50 Travel History International Travel<30 days: No Contact w/Intl Traveler<30days: No Traveled to known affect area: No History of Present Illness HPI 56-year-old black male presents to emergency department with complains of left fourth toe pain. He states that he had stubbed his toe a few hours ago and heard a crack and pop. Since then he's had pain and swelling. Pain is moderate. Worse with walking. He denies any numbness or tingling. Patient has a history of end-stage renal disease with a kidney transplant. He denies any acute medical complaints otherwise. PFSH Past Medical History Hx Anticoagulant Therapy: No Asthma: No Blood Disorders: No Anxiety: No Depression: No Heart Rhythm Problems: No Cancer: No Cardiac Catheterization: No Cardiovascular Problems: Yes High Cholesterol: Yes Chemotherapy: No Chest Pain: No Congestive Heart Failure: Yes (2007) COPD: No Cerebrovascular Accident: No Diabetes: Yes Patient Takes Glucophage: No Diminished Hearing: No Endocrine: Yes Gastrointestinal Disorders: Yes (GERD) Genitourinary: No Hepatitis: No Hiatal Hernia: No Hypertension: Yes Immune Disorder: No Musculoskeletal: No Neurologic: No Psychiatric: No Reproductive: No Respiratory: No Immunizations Current: No Radiation Therapy: No Renal Failure: Yes (KIDNEY TRANSPLANT) Sleep Apnea: No Thyroid Disease: Yes Tetanus Vaccination: < 5 Years Influenza Vaccination: Yes Past Surgical History Abdominal Surgery: Yes (ABD AND INGUINAL HERNIA REPAIR) AICD: No Body Medical Devices: KIDNEY TRANPLANT R Cardiac Surgery: No Coronary Artery Bypass Graft: No Ear Surgery: No Eye Surgery: No Genitourinary Surgery: Yes (R KIDNEY TRANSPLANT 2008) Gynecologic Surgery: No Joint Replacement: No Oral Surgery: No Pacemaker: No Thoracic Surgery: No Other Surgery: Yes (fistula, ACL, hernia, kidney transplant 2008) Family History Family Myocardial Infarction: Yes (dad [place] 1994) Social History Alcohol Use: No Tobacco Use: No Substance Use: No Allergies-Medications (Allergen,Severity, Reaction): Coded Allergies: banana (Unverified Allergy, Severe, HIVES, 04/10/17) beet (Unverified Allergy, Severe, HIVES, 04/10/17) latex (Unverified Allergy, Severe, Hives and rash, 04/10/17) peas (Unverified Allergy, Severe, HIVES, 04/10/17) Uncoded Allergies: FRESH TOMATO (Allergy, Severe, 12/04/16) HIVES CAN HAVE KETCHUP Reported Meds & Prescriptions Reported Meds & Active Scripts Active Lortab (Hydrocodone-Acetaminophen) 5-325 Mg Tab 1 Tab PO Q8HR PRN Lantus Solostar Pen Inj (Insulin Glargine) 300 Unit/3 Ml Pen 23 Units SQ DAILY Lasix (Furosemide) 40 Mg Tab 40 Mg PO BID Protonix (Pantoprazole Sodium) 20 Mg Tab 20 Mg PO DAILY PRN Hydralazine (Hydralazine HCl) 100 Mg Tab 25 Mg PO TID Take with meals Lisinopril-Hctz 20-25 Mg Tab 1 Tab PO DAILY Metoprolol Succinate ER 24 HR (Metoprolol Succinate) 100 Mg Tab 100 Mg PO DAILY Levothyroxine (Levothyroxine Sodium) 25 Mcg Tab 25 Mcg PO DAILY Amlodipine (Amlodipine Besylate) 10 Mg Tab 10 Mg PO DAILY Atorvastatin (Atorvastatin Calcium) 40 Mg Tab 40 Mg PO EVERY OTHER DAY Humalog Kwikpen Pen Inj (Insulin Lispro (Human) Inj) 300 Unit/3 Ml Pen 4 Units SQ TID Tacrolimus 5 Mg Cap 5 Mg PO Q12H Zofran (Ondansetron HCl) 4 Mg Tab 4 Mg PO Q12HR PRN Baclofen 10 Mg Tab 10 Mg PO Q8HR PRN 7 Days Reported Fluticasone Nasal [place] 50 Mcg/Act Naspr 50 Mcg EACH NARE BID 50 mcg/spray Vitamin D (Cholecalciferol) 400 Unit/Ml Drops 400 Units PO DAILY Magnesium Gluconate 500 Mg Tab 500 Mg PO DAILY Sodium Bicarbonate 650 Mg Tab 1,300 Mg PO BIDPC Mycophenolate (Mycophenolate Mofetil) 500 Mg Tab 500 Mg PO BID Deltasone (Prednisone) 20 Mg Tab 10 Mg PO DAILY Nephrocaps (B-Complex W/ C & Folic Acid) 1 Cap 1 Cap PO DAILY If on dialysis, take after treatment. Review of Systems Except as stated in HPI: all other systems reviewed are Neg General / Constitutional: No: Fever Eyes: No: Visual changes HENT: No: Headaches Cardiovascular: No: Chest Pain or Discomfort Respiratory: No: Shortness of Breath Gastrointestinal: No: Abdominal Pain Genitourinary: No: Dysuria Musculoskeletal: Positive: Arthralgias, Limited ROM, Edema, Pain Skin: No Rash Neurologic: No: Weakness Psychiatric: No: Depression Endocrine: No: Polydipsia Hematologic/Lymphatic: No: Easy Bruising Physical Exam Narrative GENERAL: This is a well-nourished, well-developed patient, in no apparent distress. SKIN: No rashes, ecchymoses or lesions. Warm and dry. HEAD: Atraumatic. Normocephalic. EYES: PERRL, EOMI, no discharge or injection. No scleral icterus. EARS: Clear NOSE: Nasal turbinates appear normal. THROAT: Mucosa pink and moist. Airway patent. NECK: Trachea midline. supple, moves head freely. LUNGS: Clear to auscultation. CV: Regular in rhythm. ABDOMEN: Soft nontender. Patient has a transplant in the right lower abdomen. No tenderness. EXT: No clubbing cyanosis. Examination of left foot reveals tenderness and swelling and some early ecchymosis to the proximal aspect of the fourth toe. The skin is intact. He has intact gross sensation with good Refill. Data Data Last Documented VS Vital Signs Date Time Temp Pulse Resp B/P (MAP) Pulse Ox O2 Delivery O2 Flow Rate FiO2 04/10/17 19:23 97.5 72 16 153/93 (113) 97 Room Air Orders Orders Toe (Min 2vws) (04/10/17 19:53) Ice/Cold Pack (04/10/17 19:53) Acetamin-Hydrocod 325-5 Mg ([place] 5-325 (04/10/17 20:00) MDM Medical Decision Making Medical Screen Exam Complete: Yes Emergency Medical Condition: Yes Medical Record Reviewed: Yes Interpretation(s) Left fourth toe: There is a questionable fracture of the proximal phalanx. Differential Diagnosis MDM: High Differential diagnoses: Fracture, sprain, strain, dislocation, contusion, neurovascular injury Narrative Course Pressure reveals a possible fracture the proximal phalanx. Patient given Lortab 5 a grams by mouth for pain. His toe was delfina taped. This is left fourth toe fracture Diagnosis Primary Impression: left fourth toe fracture Patient Instructions: General Instructions Additional Instructions: Rest. Elevation. Delfina tape. Ice packs for the next few days. Open toe comfortable shoes. Lortab for severe pain. Follow-up with your doctor in the next 3-7 days. Return to the ER for any problems. Med/Other Pt SpecificInfo: Prescription(s) given Scripts Hydrocodone-Acetaminophen (Lortab) 5-325 Mg Tab 1 TAB PO Q8HR Y for PAIN, #15 TAB 0 Refills Prov: Cali Haider MD 04/10/17 Disposition: 01 DISCHARGE HOME Condition: Adam Savage Apr 10, 2017 20:04
[2017-04-10] MEDS ORDERED: HYDR-3533 PO (20:39)
--- NOTE | 2017-04-10 20:49 | RADRPT ---
EXAM DATE/TIME: 04/10/2017 20:21 [facility] COMPARISON: No previous studies available for comparison. INDICATIONS : Pain due to trauma hitting toe on couch leg. MEDICAL HISTORY : Hypercholesterolemia. Hypertension. Congestive heart failure. Renal failure SURGICAL HISTORY : Inguinal hernia repair. Transplant kidney. AV fistula left arm ENCOUNTER: Initial ACUITY: 1 day PAIN SCORE: 10/10 LOCATION: Left Foot, fourth digit. FINDINGS: A focal juxta articular radiolucency is seen in the proximal phalanx of the great toe adjacent to the interphalangeal joint. There is soft tissue swelling. Bony structures are otherwise intact. CONCLUSION: Possible nondisplaced fracture involving the proximal phalange of the great toe adjacent to the inter phalangeal joint. Hal Sullvian MD on April 10, 2017 at 20:44 Board Certified Radiologist. This report was verified electronically.
== END 2017-04-10 21:07 | disposition home or self-care (01) ==
LOC: NEPD 19:18
DX: S92.502A Displaced unspecified fracture of left lesser toe(s), initial encounter for closed fracture (principal); W22.8XXA Striking against or struck by other objects, initial encounter; E78.5 Hyperlipidemia, unspecified; I11.0 Hypertensive heart disease with heart failure; I50.9 Heart failure, unspecified; E11.9 Type 2 diabetes mellitus without complications; Z79.4 Long term (current) use of insulin; Z79.899 Other long term (current) drug therapy
CPT/HCPCS: 73660; 99283

== ENCOUNTER 2017-04-30 18:31 | Inpatient (IN) | payer OTHER, MEDICARE ==
[~2017-04-30] VITALS: Ht 180.3 cm; Wt 71.3 kg
[~2017-04-30 18:31] MED LIST changes: +HYDR-3533 PO; -METO100T9 PO; +METO1TAB43 PO
[2017-04-30 18:34] VITALS: BP 252/81; PULSE 89; RESP 16; TEMP 97.8; O2SAT 98
--- NOTE | 2017-04-30 18:49 | PD ---
HPI Chief Complaint: Dizziness Time Seen by Provider: 18:45 Travel History International Travel<30 days: No Contact w/Intl Traveler<30days: No Traveled to known affect area: No History of Present Illness HPI This report is in ERROR Please disregard this report and all prior copies ! This report is in ERROR Please disregard this report and all prior copies ! This report is in ERROR Please disregard this report and all prior copies ! PFSH Past Medical History Hx Anticoagulant Therapy: No Asthma: No Blood Disorders: No Anxiety: No Depression: No Heart Rhythm Problems: No Cancer: No Cardiac Catheterization: No Cardiovascular Problems: Yes High Cholesterol: Yes Chemotherapy: No Chest Pain: No Congestive Heart Failure: Yes (2007) COPD: No Cerebrovascular Accident: No Diabetes: Yes Diminished Hearing: No Endocrine: Yes Gastrointestinal Disorders: Yes (GERD) Genitourinary: No Hepatitis: No Hiatal Hernia: No Hypertension: Yes Immune Disorder: No Musculoskeletal: No Neurologic: No Psychiatric: No Reproductive: No Respiratory: No Immunizations Current: No Radiation Therapy: No Renal Failure: Yes (KIDNEY TRANSPLANT) Sleep Apnea: No Thyroid Disease: Yes Past Surgical History Abdominal Surgery: Yes (ABD AND INGUINAL HERNIA REPAIR) AICD: No Body Medical Devices: KIDNEY TRANPLANT R Cardiac Surgery: No Coronary Artery Bypass Graft: No Ear Surgery: No Eye Surgery: No Genitourinary Surgery: Yes (R KIDNEY TRANSPLANT 2008) Gynecologic Surgery: No Joint Replacement: No Oral Surgery: No Pacemaker: No Thoracic Surgery: No Other Surgery: Yes (fistula, ACL, hernia, kidney transplant 2008) Social History Alcohol Use: No Tobacco Use: No Substance Use: No Allergies-Medications (Allergen,Severity, Reaction): Coded Allergies: banana (Unverified Allergy, Severe, HIVES, 04/30/17) beet (Unverified Allergy, Severe, HIVES, 04/30/17) latex (Unverified Allergy, Severe, Hives and rash, 04/30/17) peas (Unverified Allergy, Severe, HIVES, 04/30/17) Uncoded Allergies: FRESH TOMATO (Allergy, Severe, 12/04/16) HIVES CAN HAVE KETCHUP Reported Meds & Prescriptions Reported Meds & Active Scripts Active Lasix (Furosemide) 40 Mg Tab 40 Mg PO BID Protonix (Pantoprazole Sodium) 20 Mg Tab 20 Mg PO DAILY PRN Hydralazine (Hydralazine HCl) 100 Mg Tab 25 Mg PO TID Take with meals Lisinopril-Hctz 20-25 Mg Tab 1 Tab PO DAILY Metoprolol Succinate ER 24 HR (Metoprolol Succinate) 100 Mg Tab 100 Mg PO DAILY Levothyroxine (Levothyroxine Sodium) 25 Mcg Tab 25 Mcg PO DAILY Amlodipine (Amlodipine Besylate) 10 Mg Tab 10 Mg PO DAILY Atorvastatin (Atorvastatin Calcium) 40 Mg Tab 40 Mg PO EVERY OTHER DAY Tacrolimus 5 Mg Cap 5 Mg PO Q12H Zofran (Ondansetron HCl) 4 Mg Tab 4 Mg PO Q12HR PRN Baclofen 10 Mg Tab 10 Mg PO Q8HR PRN 7 Days Reported Humalog Kwikpen Pen Inj (Insulin Lispro (Human) Inj) 300 Unit/3 Ml Pen 0 SQ ACHS Lantus Solostar Pen Inj (Insulin Glargine) 300 Unit/3 Ml Pen 20 Units SQ DAILY Fluticasone Nasal [place] 50 Mcg/Act Naspr 50 Mcg EACH NARE BID 50 mcg/spray Vitamin D (Cholecalciferol) 400 Unit/Ml Drops 400 Units PO DAILY Magnesium Gluconate 500 Mg Tab 500 Mg PO DAILY Sodium Bicarbonate 650 Mg Tab 1,300 Mg PO BIDPC Mycophenolate (Mycophenolate Mofetil) 500 Mg Tab 500 Mg PO BID Deltasone (Prednisone) 20 Mg Tab 10 Mg PO DAILY Nephrocaps (B-Complex W/ C & Folic Acid) 1 Cap 1 Cap PO DAILY If on dialysis, take after treatment. Physical Exam Narrative This report is in ERROR Please disregard this report and all prior copies ! This report is in ERROR Please disregard this report and all prior copies ! This report is in ERROR Please disregard this report and all prior copies ! Data Data Last Documented VS Vital Signs Date Time Temp Pulse Resp B/P (MAP) Pulse Ox O2 Delivery O2 Flow Rate FiO2 04/30/17 20:30 71 16 159/75 (103) 98 Room Air 04/30/17 18:34 97.8 hypertension observed Orders Orders Electrocardiogram (04/30/17 18:42) Complete Blood Count With Diff (04/30/17 18:42) Chest, Single Ap (04/30/17 18:42) Magnesium (Mg) (04/30/17 19:03) Act Partial Throm Time (Ptt) (04/30/17 19:03) Prothrombin Time / Inr (Pt) (04/30/17 19:03) Ecg Monitoring (04/30/17 19:03) Iv Access Insert/Monitor (04/30/17 19:03) Oximetry (04/30/17 19:03) Oxygen Administration (04/30/17 19:03) Ct Brain W/O Iv Contrast(Rout) (04/30/17 ) Urinalysis - C+S If Indicated (04/30/17 19:03) Ondansetron Inj (Zofran Inj) (04/30/17 19:15) Sodium Chloride 0.9% Flush (Ns Flush) (04/30/17 19:15) Basic Metabolic Panel (Bmp) (04/30/17 19:30) Troponin I (04/30/17 19:30) Ckmb (Isoenzyme) Profile (04/30/17 19:30) CKMB (04/30/17 19:30) CKMB% (04/30/17 19:30) Calcium Gluconate Inj (Calcium Gluconate (04/30/17 20:45) Insulin Human Regular Inj (Novolin R Inj (04/30/17 20:45) Dextrose 50% In [place] (Vial) Inj (D50w (Vi (04/30/17 20:45) Sodium Bicarbonate 8.4% Inj (Sodium Bica (04/30/17 20:45) Admit Order (Ed Use Only) (04/30/17 20:45) Labs Laboratory Tests Test 04/30/17 19:30 04/30/17 20:00 White Blood Count 5.2 TH/MM3 Red Blood Count 4.04 MIL/MM3 Hemoglobin 9.9 GM/DL Hematocrit 30.9 % Mean Corpuscular Volume 76.5 FL Mean Corpuscular Hemoglobin 24.5 PG Mean Corpuscular Hemoglobin Concent 32.0 % Red Cell Distribution Width 16.5 % Platelet Count 221 TH/MM3 Mean Platelet Volume 8.3 FL Neutrophils (%) (Auto) 67.5 % Lymphocytes (%) (Auto) 17.7 % Monocytes (%) (Auto) 13.2 % Eosinophils (%) (Auto) 0.3 % Basophils (%) (Auto) 1.3 % Neutrophils # (Auto) 3.5 TH/MM3 Lymphocytes # (Auto) 0.9 TH/MM3 Monocytes # (Auto) 0.7 TH/MM3 Eosinophils # (Auto) 0.0 TH/MM3 Basophils # (Auto) 0.1 TH/MM3 CBC Comment DIFF FINAL Differential Comment Prothrombin Time 10.7 SEC Prothromb Time International Ratio 1.0 RATIO Activated Partial Thromboplast Time 28.0 SEC Blood Urea Nitrogen 71 MG/DL Creatinine 2.89 MG/DL Random Glucose 152 MG/DL Calcium Level 8.4 MG/DL Magnesium Level 2.4 MG/DL Sodium Level 137 MEQ/L Potassium Level 6.4 MEQ/L Chloride Level 110 MEQ/L Carbon Dioxide Level 20.3 MEQ/L Anion Gap 7 MEQ/L Estimat Glomerular Filtration Rate 28 ML/MIN Total Creatine Kinase 131 U/L Creatine Kinase MB 3.5 NG/ML Troponin I 0.02 NG/ML Urine Color LIGHT-YELLOW Urine Turbidity CLEAR Urine pH 6.0 Urine Specific [place] 1.010 Urine Protein 100 mg/dL Urine Glucose (UA) NEG mg/dL Urine Ketones NEG mg/dL Urine Occult Blood NEG Urine Nitrite NEG Urine Bilirubin NEG Urine Urobilinogen LESS THAN 2.0 MG/DL Urine Leukocyte Esterase NEG Urine RBC 1 /hpf Microscopic Urinalysis Comment CATH-CULT NOT IND MDM Medical Decision Making Medical Screen Exam Complete: No Emergency Medical Condition: No Differential Diagnosis This report is in ERROR Please disregard this report and all prior copies ! This report is in ERROR Please disregard this report and all prior copies ! This report is in ERROR Please disregard this report and all prior copies ! Narrative Course This report is in ERROR Please disregard this report and all prior copies ! This report is in ERROR Please disregard this report and all prior copies ! This report is in ERROR Please disregard this report and all prior copies ! Kam Frazier. [place] Apr 30, 2017 18:49
[2017-04-30] MEDS ORDERED: ONDANSETRON HCL 4 MG/2 ML VIAL IVP ONE (19:15)
[2017-04-30] MEDS ORDERED: SODIUM CHLORIDE 0.9% FLUSH 10 ML FLUSH IVF PRN (19:15)
--- NOTE | 2017-04-30 19:19 | PD ---
HPI Chief Complaint: Dizziness Time Seen by Provider: 19:09 Travel History International Travel<30 days: No Contact w/Intl Traveler<30days: No Traveled to known affect area: No History of Present Illness HPI 56-year-old male presents to the emergency department for evaluation of multiple different symptoms. Patient states that he woke up yesterday morning this morning with feelings of "convulsions". He states that he could see the room in the bed shaking. He states that he did not bite his tongue or have any incontinence. However, he did go the bathroom after the episode. He states he has been having intermittent chest pain over the past 2 days. It is on the left side of his chest and is achy. Patient also reports headache and dizziness. He also states he has a ruptured blood vessel in his right eye that he noticed today. Patient denies any chest pain at this moment, but apparently had left-sided chest pain when he showed up in triage. His states that she noticed a left facial droop yesterday, but this resolved when he woke up this morning. The patient also reports some decreased sensation to the left arm. He denies any syncope. He has history of hypertension, hyperlipidemia, diabetes, end-stage renal disease who received at kidney transplant (2008) and is no longer on dialysis. He states he has had a stress test in the past, but it was several years ago. 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 Upon further review of chart, patient was seen in October 2016 and had repeat cardiac enzymes completed. Patient had normal stress test on 05/20 which was low risk. PFSH Past Medical History Hx Anticoagulant Therapy: No Asthma: No Blood Disorders: No Anxiety: No Depression: No Heart Rhythm Problems: No Cancer: No Cardiac Catheterization: No Cardiovascular Problems: Yes High Cholesterol: Yes Chemotherapy: No Chest Pain: No Congestive Heart Failure: Yes (2007) COPD: No Cerebrovascular Accident: No Diabetes: Yes Diminished Hearing: No Endocrine: Yes Gastrointestinal Disorders: Yes (GERD) Genitourinary: No Hepatitis: No Hiatal Hernia: No Hypertension: Yes Immune Disorder: No Musculoskeletal: No Neurologic: No Psychiatric: No Reproductive: No Respiratory: No Immunizations Current: No Radiation Therapy: No Renal Failure: Yes (KIDNEY TRANSPLANT) Sleep Apnea: No Thyroid Disease: Yes Past Surgical History Abdominal Surgery: Yes (ABD AND INGUINAL HERNIA REPAIR) AICD: No Body Medical Devices: KIDNEY TRANPLANT R Cardiac Surgery: No Coronary Artery Bypass Graft: No Ear Surgery: No Eye Surgery: No Genitourinary Surgery: Yes (R KIDNEY TRANSPLANT 2008) Gynecologic Surgery: No Joint Replacement: No Oral Surgery: No Pacemaker: No Thoracic Surgery: No Other Surgery: Yes (fistula, ACL, hernia, kidney transplant 2008) Social History Alcohol Use: No Tobacco Use: No Substance Use: No Allergies-Medications (Allergen,Severity, Reaction): Coded Allergies: banana (Unverified Allergy, Severe, HIVES, 04/30/17) beet (Unverified Allergy, Severe, HIVES, 04/30/17) latex (Unverified Allergy, Severe, Hives and rash, 04/30/17) peas (Unverified Allergy, Severe, HIVES, 04/30/17) Uncoded Allergies: FRESH TOMATO (Allergy, Severe, 12/04/16) HIVES CAN HAVE KETCHUP Reported Meds & Prescriptions Reported Meds & Active Scripts Active Lasix (Furosemide) 40 Mg Tab 40 Mg PO BID Protonix (Pantoprazole Sodium) 20 Mg Tab 20 Mg PO DAILY PRN Hydralazine (Hydralazine HCl) 100 Mg Tab 25 Mg PO TID Take with meals Lisinopril-Hctz 20-25 Mg Tab 1 Tab PO DAILY Metoprolol Succinate ER 24 HR (Metoprolol Succinate) 100 Mg Tab 100 Mg PO DAILY Levothyroxine (Levothyroxine Sodium) 25 Mcg Tab 25 Mcg PO DAILY Amlodipine (Amlodipine Besylate) 10 Mg Tab 10 Mg PO DAILY Atorvastatin (Atorvastatin Calcium) 40 Mg Tab 40 Mg PO EVERY OTHER DAY Tacrolimus 5 Mg Cap 5 Mg PO Q12H Zofran (Ondansetron HCl) 4 Mg Tab 4 Mg PO Q12HR PRN Baclofen 10 Mg Tab 10 Mg PO Q8HR PRN 7 Days Reported Humalog Kwikpen Pen Inj (Insulin Lispro (Human) Inj) 300 Unit/3 Ml Pen 0 SQ ACHS Lantus Solostar Pen Inj (Insulin Glargine) 300 Unit/3 Ml Pen 20 Units SQ DAILY Fluticasone Nasal [place] 50 Mcg/Act Naspr 50 Mcg EACH NARE BID 50 mcg/spray Vitamin D (Cholecalciferol) 400 Unit/Ml Drops 400 Units PO DAILY Magnesium Gluconate 500 Mg Tab 500 Mg PO DAILY Sodium Bicarbonate 650 Mg Tab 1,300 Mg PO BIDPC Mycophenolate (Mycophenolate Mofetil) 500 Mg Tab 500 Mg PO BID Deltasone (Prednisone) 20 Mg Tab 10 Mg PO DAILY Nephrocaps (B-Complex W/ C & Folic Acid) 1 Cap 1 Cap PO DAILY If on dialysis, take after treatment. Review of Systems Except as stated in HPI: all other systems reviewed are Neg Physical Exam Narrative GENERAL: Well-nourished, well-developed male patient, afebrile. SKIN: Focused skin assessment warm/dry. HEAD: Normocephalic. Atraumatic. EYES: No scleral icterus. No injection or drainage. PERRLA. Small subconjunctival hemorrhage noted to right conjunctiva. ENT: Mucosa pink and moist. No erythema or exudates. No uvular edema. No uvular , palatal, or tonsillar deviation. Airway patent. Nasal turbinates appear normal without nasal blood, purulent drainage or septal hematoma. Bilateral tympanic membranes are clear without erythema or perforation. NECK: Supple, trachea midline. No JVD or lymphadenopathy. CARDIOVASCULAR: Regular rate and rhythm without murmurs, gallops, or rubs. RESPIRATORY: Breath sounds equal bilaterally. No accessory muscle use. Lungs sounds are clear to auscultation. GASTROINTESTINAL: Abdomen soft, non-tender, nondistended. MUSCULOSKELETAL: No cyanosis, or edema. Bilateral upper and lower extremity strength 5/5. NEUROLOGICAL: Awake and alert. Cranial nerves II through XII intact. Motor and sensory grossly within normal limits. Five out of 5 muscle strength in all muscle groups. Normal speech. Finger to nose is normal bilaterally. Heel-to- huang is normal bilaterally. Data Data Last Documented VS Vital Signs Date Time Temp Pulse Resp B/P (MAP) Pulse Ox O2 Delivery O2 Flow Rate FiO2 04/30/17 19:18 98 Room Air 04/30/17 18:34 97.8 89 16 252/81 (137) Orders Orders Electrocardiogram (04/30/17 18:42) Complete Blood Count With Diff (04/30/17 18:42) Chest, Single Ap (04/30/17 18:42) Magnesium (Mg) (04/30/17 19:03) Act Partial Throm Time (Ptt) (04/30/17 19:03) Prothrombin Time / Inr (Pt) (04/30/17 19:03) Ecg Monitoring (04/30/17 19:03) Iv Access Insert/Monitor (04/30/17 19:03) Oximetry (04/30/17 19:03) Oxygen Administration (04/30/17 19:03) Ct Brain W/O Iv Contrast(Rout) (04/30/17 ) Urinalysis - C+S If Indicated (04/30/17 19:03) Ondansetron Inj (Zofran Inj) (04/30/17 19:15) Sodium Chloride 0.9% Flush (Ns Flush) (04/30/17 19:15) Basic Metabolic Panel (Bmp) (04/30/17 19:30) Troponin I (04/30/17:30) Ckmb (Isoenzyme) Profile (04/30/17:30) CKMB (04/30/17:30) CKMB% (04/30/17:30) Calcium Gluconate Inj (Calcium Gluconate (04/30/17 20:45) Insulin Human Regular Inj (Novolin R Inj (04/30/17 20:45) Dextrose 50% In [place] (Vial) Inj (D50w (Vi (04/30/17 20:45) Sodium Bicarbonate 8.4% Inj (Sodium Bica (04/30/17 20:45) Admit Order (Ed Use Only) (04/30/17 20:45) Labs Laboratory Tests Test 04/30/17 19:30 04/30/17 20:00 White Blood Count 5.2 TH/MM3 Red Blood Count 4.04 MIL/MM3 Hemoglobin 9.9 GM/DL Hematocrit 30.9 % Mean Corpuscular Volume 76.5 FL Mean Corpuscular Hemoglobin 24.5 PG Mean Corpuscular Hemoglobin Concent 32.0 % Red Cell Distribution Width 16.5 % Platelet Count 221 TH/MM3 Mean Platelet Volume 8.3 FL Neutrophils (%) (Auto) 67.5 % Lymphocytes (%) (Auto) 17.7 % Monocytes (%) (Auto) 13.2 % Eosinophils (%) (Auto) 0.3 % Basophils (%) (Auto) 1.3 % Neutrophils # (Auto) 3.5 TH/MM3 Lymphocytes # (Auto) 0.9 TH/MM3 Monocytes # (Auto) 0.7 TH/MM3 Eosinophils # (Auto) 0.0 TH/MM3 Basophils # (Auto) 0.1 TH/MM3 CBC Comment DIFF FINAL Differential Comment Prothrombin Time 10.7 SEC Prothromb Time International Ratio 1.0 RATIO Activated Partial Thromboplast Time 28.0 SEC Blood Urea Nitrogen 71 MG/DL Creatinine 2.89 MG/DL Random Glucose 152 MG/DL Calcium Level 8.4 MG/DL Magnesium Level 2.4 MG/DL Sodium Level 137 MEQ/L Potassium Level 6.4 MEQ/L Chloride Level 110 MEQ/L Carbon Dioxide Level 20.3 MEQ/L Anion Gap 7 MEQ/L Estimat Glomerular Filtration Rate 28 ML/MIN Total Creatine Kinase 131 U/L Creatine Kinase MB 3.5 NG/ML Troponin I 0.02 NG/ML Urine Color LIGHT-YELLOW Urine Turbidity CLEAR Urine pH 6.0 Urine Specific [place] 1.010 Urine Protein 100 mg/dL Urine Glucose (UA) NEG mg/dL Urine Ketones NEG mg/dL Urine Occult Blood NEG Urine Nitrite NEG Urine Bilirubin NEG Urine Urobilinogen LESS THAN 2.0 MG/DL Urine Leukocyte Esterase NEG Urine RBC 1 /hpf Microscopic Urinalysis Comment CATH-CULT NOT IND MDM Medical Decision Making Medical Screen Exam Complete: Yes Emergency Medical Condition: Yes Medical Record Reviewed: Yes Interpretation(s) Last Impressions Chest X-Ray 04/30/17 1842 Signed Impressions: Service Date/Time: Sunday, April 30, 2017 19:17 - CONCLUSION: Normal examination. Aurelio Lema MD Head CT 04/30/17 0000 Signed Impressions: Service Date/Time: Sunday, April 30, 2017 19:36 - CONCLUSION: Normal examination. Aurelio Lema MD Differential Diagnosis ACS versus atypical chest pain versus muscle strain versus TIA versus CVA versus intracranial abnormality Narrative Course 56-year-old male presents to the emergency department for several complaints including: Possible convulsions, chest pain, facial droop yesterday, decreased sensation to the left arm, headache. EKG shows sinus rhythm, heart rate 79, no acute ST changes. CBC, BMP, CK, troponin, magnesium, PTT, PT/INR, UA are ordered and pending. Chest x-ray and CT of the brain are ordered and pending. Patient is given Zofran 4 mg IV for nausea. CBC shows slight anemia hemoglobin 9.9, hematocrit 30.9. BMP shows hyperkalemia 6.4, BUN 71, creatinine 2.89, glucose 152. CK is 131. Troponin is 0.02. Magnesium is 2.4. Coags are unremarkable. UA is negative. Chest x- ray is normal. CT of the brain is normal. Patient is given 1 g calcium gluconate, 10 units regular insulin, 1 amp of D50, one amp of sodium bicarbonate for hyperkalemia. Dr. Alvarado accepted admission. Diagnosis Primary Impression: TIA (transient ischemic attack) Qualified Codes: G45.9 - Transient cerebral ischemic attack, unspecified Additional Impressions: Acute chest pain Hyperkalemia Admitting Information Admitting Physician Requests: Marium Mast Apr 30, 2017 19:19
--- NOTE | 2017-04-30 19:20 | RADRPT ---
EXAM DATE/TIME: 04/30/2017 19:17 [facility] COMPARISON: CHEST SINGLE AP, February 12, 2017, 8:25. INDICATIONS : Chest pain and shortness of breath. MEDICAL HISTORY : None. SURGICAL HISTORY : None. ENCOUNTER: Initial ACUITY: 1 day PAIN SCORE: 6/10 LOCATION: chest FINDINGS: A single view of the chest demonstrates the lungs to be symmetrically aerated without evidence of mas s, infiltrate or effusion. The cardiomediastinal contours are unremarkable. Osseous structures are intact. CONCLUSION: Normal examination. Aurelio Lema MD on April 30, 2017 at 19:18 Board Certified Radiologist. This report was verified electronically.
[2017-04-30] MEDS ORDERED: LANTINJ SQ (19:27)
[2017-04-30] MEDS ORDERED: HUMA100I3 SQ (19:27)
[2017-04-30 19:46] LABS: AUTOMATED NEUTROPHIL # 3.5 TH/MM3 (1.8-7.7); BASOPHIL # 0.1 TH/MM3 (0-0.2); BASOPHIL % 1.3 % (0.0-2.0); EOSINOPHIL % 0.3 % (0.0-4.0); HEMATOCRIT 30.9 % (39.0-51.0); HEMOGLOBIN 9.9 GM/DL (13.0-17.0); LYMPH % 17.7 % (9.0-44.0); LYMPHOCYTE # 0.9 TH/MM3 (1.0-4.8); MEAN CELL VOLUME 76.5 FL (80.0-100.0); MEAN CORPUSCULAR HEMOGLOBIN 24.5 PG (27.0-34.0); MEAN PLATELET VOLUME 8.3 FL (7.0-11.0); MONO % 13.2 % (0.0-8.0); MONOCYTE # 0.7 TH/MM3 (0-0.9); NEUT % 67.5 % (16.0-70.0); PLATELET COUNT 221 TH/MM3 (150-450); RED BLOOD COUNT 4.04 MIL/MM3 (4.50-5.90); RED CELL DISTRIBUTION WIDTH 16.5 % (11.6-17.2); WHITE BLOOD COUNT 5.2 TH/MM3 (4.0-11.0)
--- NOTE | 2017-04-30 19:51 | RADRPT ---
EXAM DATE/TIME: 04/30/2017 19:36 [facility] COMPARISON: No previous studies available for comparison. INDICATIONS : Cephalgia. Dizzniess. RADIATION DOSE: 56.77 CTDIvol (mGy) MEDICAL HISTORY : Cardiovascular disease. Hypertension. Congestive heart failure. Renal failure. Diabetes. SURGICAL HISTORY : Transplant kidney. AV fistula left arm. ENCOUNTER: Initial ACUITY: 1 month PAIN SCALE: 9/10 LOCATION: cranial TECHNIQUE: Multiple contiguous axial images were obtained of the head. Using automated exposure control and adj ustment of the mA and/or kV according to patient size, radiation dose was kept as low as reasonably a chievable to obtain optimal diagnostic quality images. DICOM format image data is available electro nically for review and comparison. FINDINGS: CEREBRUM: The ventricles are normal for age. No evidence of midline shift, mass lesion, hemorrhage or acute in farction. No extra-axial fluid collections are seen. POSTERIOR FOSSA: The cerebellum and brainstem are intact. The 4th ventricle is midline. The cerebellopontine angle i s unremarkable. EXTRACRANIAL: The visualized portion of the orbits is intact. SKULL: The calvaria is intact. No evidence of skull fracture. CONCLUSION: Normal examination. Aurelio Lema MD on April 30, 2017 at 19:49 Board Certified Radiologist. This report was verified electronically.
[2017-04-30 20:07] LABS: PROTHROMBIN TIME - PATIENT 10.7 SEC (9.8-11.6)
[2017-04-30 20:19] LABS: BICARBONATE 20.3 MEQ/L (21.0-32.0); BLOOD UREA NITROGEN 71 MG/DL (7-18); CALCIUM 8.4 MG/DL (8.5-10.1); CHLORIDE 110 MEQ/L (98-107); CREATININE 2.89 MG/DL (0.60-1.30); GLOMERULAR FILTRATION RATE 28 ML/MIN (>89); GLUCOSE,RANDOM 152 MG/DL (74-106); MAGNESIUM 2.4 MG/DL (1.5-2.5); SODIUM (NA) 137 MEQ/L (136-145)
[2017-04-30 20:26] LABS: BILIRUBIN, URINE NEG (NEG); BLOOD, URINE NEG (NEG); GLUCOSE,URINE NEG (NEG); KETONE, URINE NEG (NEG); NITRITE,URINE NEG (NEG); URINE COLOR LIGHT-YELLOW (YELLW/STRAW); URINE LEUKOCYTE ESTERASE NEG (NEG)
[2017-04-30 20:30] VITALS: BP 159/75; PULSE 71; RESP 16; O2SAT 98
[2017-04-30 20:36] LABS: TROPONIN I 0.02 NG/ML (0.02-0.05)
[2017-04-30] MEDS ORDERED: INSULIN HUMAN REGULAR 1,000 UNITS/10 ML VIAL IV PUSH ONE (20:45)
[2017-04-30] MEDS ORDERED: CALCIUM GLUCONATE 10% 1 GM/10 ML VIAL SLOW IVP ONE (20:45)
[2017-04-30] MEDS ORDERED: SODIUM BICARBONATE 8.4% SOLN 50 MEQ/50 ML VIAL SLOW IVP ONE (20:45)
[2017-04-30] MEDS ORDERED: DEXTROSE 50% IN WATER 50 ML VIAL(D50) IV PUSH ONE (20:45)
[2017-04-30 21:00] VITALS: BP 163/79; PULSE 74; RESP 16; O2SAT 99
[2017-04-30] MEDS ORDERED: ASPIRIN 81 MG CHEW TAB CHEW ONE (21:30)
[2017-04-30] MEDS ORDERED: SODIUM CHLORIDE 0.9% FLUSH 5 ML FLUSH IV FLUSH PRN (21:45)
[2017-04-30] MEDS ORDERED: DEXTROSE 50% IN WATER 50 ML SYRINGE IV PUSH PRN (21:45)
[2017-04-30] MEDS ORDERED: GLUCAGON 1 MG/ML VIAL OTHER PRN (21:45)
[2017-04-30 22:00] VITALS: BP 160/90; PULSE 82; RESP 20; O2SAT 97
[2017-04-30] MEDS ORDERED: PANTOPRAZOLE SOD 20 MG DELAYED RELEASE TAB PO PRN (22:45)
--- NOTE | 2017-04-30 22:57 | HHI.HP ---
[facility] Unknown Admission Diagnosis TIA, chest pain, hyperkalemia Diagnoses: Travel History International Travel<30 Days: No Contact w/Intl Traveler <30 Da: No Traveled to Known Affected Are: No History of Present Illness 56-year-old male with a past medical history of a renal transplant in 2008 for essential hypertension, hypertension, insulin-dependent diabetes mellitus and hyperlipidemia presents with a 1 day history of left-sided facial droop that spontaneously resolved. Patient reports his noticed his face was drooping on the left side all day yesterday however when he awoke this morning the symptoms had resolved. The patient reports feeling "just not himself". He endorses chest pain 1 week. He states the chest pain is a sharp stabbing left- sided chest pain that spontaneously resolves. He also reports a one-day history of convulsions. The patient states that he wakes up with his whole body convulsing and has no memory of the events. He is unsure if he is just sleeping or if he loses consciousness. He denies loss of bowel/bladder. Head CT showed no acute bleed or infarct. Initial troponin/EKG unremarkable. Review of Systems Denies fever or chills Denies blurry vision, otorrhea, rhinorrhea Denies sore throat and cough Chest pain per history of present illness, no palpitations or shortness of breath No abdominal pain Denies constipation/diarrhea. Reports intermittent nausea without emesis Positive weakness No rashes Past Family Social History Past Medical History Insulin-dependent diabetes mellitus Hypertension Hyperlipidemia Renal transplant in 2009 for essential hypertension Past Surgical History Renal transplant ACL repair left knee Hernia repair 2 Fistula placement Reported Medications Reported Meds & Active Scripts Active Lasix (Furosemide) 40 Mg Tab 40 Mg PO BID Protonix (Pantoprazole Sodium) 20 Mg Tab 20 Mg PO DAILY PRN Hydralazine (Hydralazine HCl) 100 Mg Tab 25 Mg PO TID Take with meals Lisinopril-Hctz 20-25 Mg Tab 1 Tab PO DAILY Metoprolol Succinate ER 24 HR (Metoprolol Succinate) 100 Mg Tab 100 Mg PO DAILY Levothyroxine (Levothyroxine Sodium) 25 Mcg Tab 25 Mcg PO DAILY Amlodipine (Amlodipine Besylate) 10 Mg Tab 10 Mg PO DAILY Atorvastatin (Atorvastatin Calcium) 40 Mg Tab 40 Mg PO EVERY OTHER DAY Tacrolimus 5 Mg Cap 5 Mg PO Q12H Zofran (Ondansetron HCl) 4 Mg Tab 4 Mg PO Q12HR PRN Baclofen 10 Mg Tab 10 Mg PO Q8HR PRN 7 Days Reported Humalog Kwikpen Pen Inj (Insulin Lispro (Human) Inj) 300 Unit/3 Ml Pen 0 SQ ACHS Lantus Solostar Pen Inj (Insulin Glargine) 300 Unit/3 Ml Pen 20 Units SQ DAILY Fluticasone Nasal [place] 50 Mcg/Act Naspr 50 Mcg EACH NARE BID 50 mcg/spray Vitamin D (Cholecalciferol) 400 Unit/Ml Drops 400 Units PO DAILY Magnesium Gluconate 500 Mg Tab 500 Mg PO DAILY Sodium Bicarbonate 650 Mg Tab 1,300 Mg PO BIDPC Mycophenolate (Mycophenolate Mofetil) 500 Mg Tab 500 Mg PO BID Deltasone (Prednisone) 20 Mg Tab 10 Mg PO DAILY Nephrocaps (B-Complex W/ C & Folic Acid) 1 Cap 1 Cap PO DAILY If on dialysis, take after treatment. Allergies: Coded Allergies: banana (Unverified Allergy, Severe, HIVES, 04/30/17) beet (Unverified Allergy, Severe, HIVES, 04/30/17) latex (Unverified Allergy, Severe, Hives and rash, 04/30/17) peas (Unverified Allergy, Severe, HIVES, 04/30/17) Uncoded Allergies: FRESH TOMATO (Allergy, Severe, 12/04/16) HIVES CAN HAVE KETCHUP Family History Father of an IN at age 95. Mother of pneumonia. Social History Never smoker. Quit alcohol 15 years ago. Denies marijuana and illicit drugs. Physical Exam Vital Signs Vital Signs Date Time Temp Pulse Resp B/P (MAP) Pulse Ox O2 Delivery O2 Flow Rate FiO2 04/30/17 20:30 71 16 159/75 (103) 98 Room Air 04/30/17 19:18 98 Room Air 04/30/17 18:34 97.8 89 16 252/81 (137) 98 Physical Exam GENERAL: male lying in bed SKIN: No rashes, ecchymoses or lesions. Cool and dry. HEAD: Atraumatic. Normocephalic. No temporal or scalp tenderness. EYES: Pupils equal round and reactive. Extraocular motions intact. No scleral icterus. No injection or drainage. ENT: Nose without bleeding, purulent drainage or septal hematoma. Throat without erythema, tonsillar hypertrophy or exudate. Uvula midline. Airway patent. NECK: Trachea midline. No JVD or lymphadenopathy. Supple, nontender, no meningeal signs. CARDIOVASCULAR: Regular rate and rhythm without murmurs, gallops, or rubs. RESPIRATORY: Clear to auscultation. Breath sounds equal bilaterally. No wheezes , rales, or rhonchi. GASTROINTESTINAL: Abdomen soft, non-tender, nondistended. No hepato-splenomegaly , or palpable masses. No guarding. MUSCULOSKELETAL: Extremities without clubbing, cyanosis, or edema. No joint tenderness, effusion, or edema noted. No calf tenderness. NEUROLOGICAL: Awake and alert. Cranial nerves II through XII intact. Motor and sensory grossly within normal limits. Five out of 5 muscle strength in all muscle groups. Normal speech. Laboratory Laboratory Tests Test 04/30/17 19:30 04/30/17 20:00 White Blood Count 5.2 Red Blood Count 4.04 Hemoglobin 9.9 Hematocrit 30.9 Mean Corpuscular Volume 76.5 Mean Corpuscular Hemoglobin 24.5 Mean Corpuscular Hemoglobin Concent 32.0 Red Cell Distribution Width 16.5 Platelet Count 221 Mean Platelet Volume 8.3 Neutrophils (%) (Auto) 67.5 Lymphocytes (%) (Auto) 17.7 Monocytes (%) (Auto) 13.2 Eosinophils (%) (Auto) 0.3 Basophils (%) (Auto) 1.3 Neutrophils # (Auto) 3.5 Lymphocytes # (Auto) 0.9 Monocytes # (Auto) 0.7 Eosinophils # (Auto) 0.0 Basophils # (Auto) 0.1 CBC Comment DIFF FINAL Differential Comment Prothrombin Time 10.7 Prothromb Time International Ratio 1.0 Activated Partial Thromboplast Time 28.0 Blood Urea Nitrogen 71 Creatinine 2.89 Random Glucose 152 Calcium Level 8.4 Magnesium Level 2.4 Sodium Level 137 Potassium Level 6.4 Chloride Level 110 Carbon Dioxide Level 20.3 Anion Gap 7 Estimat Glomerular Filtration Rate 28 Total Creatine Kinase 131 Creatine Kinase MB 3.5 Troponin I 0.02 Urine Color LIGHT-YELLOW Urine Turbidity CLEAR Urine pH 6.0 Urine Specific [place] 1.010 Urine Protein 100 Urine Glucose (UA) NEG Urine Ketones NEG Urine Occult Blood NEG Urine Nitrite NEG Urine Bilirubin NEG Urine Urobilinogen LESS THAN 2.0 Urine Leukocyte Esterase NEG Urine RBC 1 Microscopic Urinalysis Comment CATH-CULT NOT IND Result Diagram: 04/30/17192904/30/171929 Caprini VTE Risk Assessment Caprini VTE Risk Assessment: No/Low Risk (score <= 1) Caprini Risk Assessment Model Point Value = 1 Point Value = 2 Point Value = 3 Point Value = 5 Age 41-60 Minor surgery BMI > 25 kg/m2 Swollen legs Varicose veins or History of unexplained or recurrent spontaneous Oral contraceptives or hormone replacement Sepsis (< 1 month) Serious lung disease, including pneumonia (< 1 month) Abnormal pulmonary function Acute myocardial infarction Congestive heart failure (< 1 month) History of inflammatory bowel disease Medical patient at bed rest Age 61-74 Arthroscopic surgery Major open surgery (> 45 min) Laparoscopic surgery (> 45 min) Malignancy Confined to bed (> 72 hours) Immobilizing plaster cast Central venous access Age >= 75 History of VTE Family history of VTE Factor V Leiden Prothrombin [id number] Lupus anticoagulant Anticardiolipin antibodies Elevated serum homocysteine Heparin-induced thrombocytopenia Other congenital or acquired thrombophilia Stroke (< 1 month) Elective arthroplasty Hip, pelvis, or leg fracture Acute spinal cord injury (< 1 month) Prophylaxis Regimen Total Risk Factor Score Risk Level Prophylaxis Regimen 0-1 Low Early ambulation 2 Moderate Order ONE of the following: *Sequential Compression Device (SCD) *Heparin 5000 units SQ BID 3-4 Higher Order ONE of the following medications: *Heparin 5000 units SQ TID *Enoxaparin/Lovenox 40 mg SQ daily (WT < 150 kg, CrCl > 30 mL/min) *Enoxaparin/Lovenox 30 mg SQ daily (WT < 150 kg, CrCl > 10-29 mL/min) *Enoxaparin/Lovenox 30 mg SQ BID (WT < 150 kg, CrCl > 30 mL/min) AND/OR *Sequential Compression Device (SCD) 5 or more Highest Order ONE of the following medications: *Heparin 5000 units SQ TID (Preferred with Epidurals) *Enoxaparin/Lovenox 40 mg SQ daily (WT < 150 kg, CrCl > 30 mL/min) *Enoxaparin/Lovenox 30 mg SQ daily (WT < 150 kg, CrCl > 10-29 mL/min) *Enoxaparin/Lovenox 30 mg SQ BID (WT < 150 kg, CrCl > 30 mL/min) AND *Sequential Compression Device (SCD) Assessment and Plan Assessment and Plan 56 year old male with PMH of hypertension, hyperlipidemia and insulin-dependent diabetes mellitus and renal transplant for essential hypertension in 2008 presents with possible TIA and potential seizure activity. 1. Seizure activity EEG ordered Unclear if patient had postictal episodes Neurology consulted, appreciate recommendations 2. TIA/CVA MRI/MRA/carotid ultrasound/Echo pending Neurology consulted and appreciate recommendations 3. Hyperkalemia Patient's potassium 6.4 on admission Given insulin, D50, calcium gluconate and bicarbonate Repeat BMP pending No peaked T waves on EKG 4. Chest pain ACS rule out pending Initial troponin/EKG within normal limits 5. CKD Creatinine 2.89, patient's baseline between 2.8-3.1 6. Status post renal transplant Continue home immunosuppression regimen 7. Hypertension Continue multidrug regimen from home Monitor 8. Hyperlipidemia Continue home statin FEN Nothing by mouth until passes swallow eval Electrolytes: As above Physician Certification 2 Midnight Certification Type: Admission for Inpatient Services Order for Inpatient Services The services are ordered in accordance with Medicare regulations or non- Medicare payer requirements, as applicable. In the case of services not specified as inpatient-only, they are appropriately provided as inpatient services in accordance with the 2-midnight benchmark. Estimated LOS (days): 2 2 days is the estimated time the patient will need to remain in the hospital, assuming treatment plan goals are met and no additional complications. Post-Hospital Plan: Not yet determined Hyun Alvarado MD Apr 30, 2017 22:57
[2017-04-30 23:00] VITALS: BP 162/77; PULSE 80; RESP 19; O2SAT 98
[2017-05-01] VITALS (9 sets, daily range): BP systolic 141–187; BP diastolic 69–91; PULSE 63–77; RESP 18–20; TEMP 97.6–98.3; O2SAT 94–98
[2017-05-01] MEDS: TACROLIMUS 5 MG CAP PO SCH ×3 (02:17→23:03)
[2017-05-01] MEDS: MYCOPHENOLATE MOFETIL 500 MG TAB PO SCH ×2 (05:41→17:35)
[2017-05-01] MEDS: INSULIN ASPART SUPPLEMENTAL SCALE SQ SCH ×4 (08:00→20:26)
--- NOTE | 2017-05-01 08:09 | RADRPT ---
EXAM DATE/TIME: 05/01/2017 07:38 [facility] COMPARISON: No previous studies available for comparison. INDICATIONS : Cephalgia. Dizziness. MEDICAL HISTORY : Hypercholesterolemia. Diabetes mellitus type 2. Hypertension. SURGICAL HISTORY : Inguinal hernia repair. AV fistula. Renal transplant. ENCOUNTER: Initial ACUITY: 2 day PAIN SCORE: 0/10 LOCATION: cranial TECHNIQUE: Multiplanar, multisequence MRI of the brain was performed without contrast. FINDINGS: CEREBRUM: The ventricles are normal for age. No evidence of midline shift, mass lesion, hemorrhage or acute in farction. No extraaxial fluid collections are seen. The pituitary gland and suprasellar cistern are normal in configuration. WHITE MATTER: Mild periventricular and scattered deep white matter T2 prolongation. POSTERIOR FOSSA: The cerebellum and brainstem are intact. The 4th ventricle is midline. The cerebellopontine angle is unremarkable. The cerebellar tonsils are normal in position. DIFFUSION IMAGING: No focal areas of restricted diffusion are seen. No evidence of acute infarction. EXTRACRANIAL: The visualized portions of the orbits and paranasal sinuses are unremarkable. CONCLUSION: 1. Mild small vessel periventricular and deep white matter ischemic demyelination. 2. Otherwise, unremarkable MRI examination of the brain. Blake Leggett MD on May 01, 2017 at 8:04 Board Certified Radiologist. This report was verified electronically.
--- NOTE | 2017-05-01 08:24 | RADRPT ---
EXAM DATE/TIME: 05/01/2017 07:38 [facility] COMPARISON: No previous studies available for comparison. INDICATIONS : Cephalgia. Dizziness. MEDICAL HISTORY : Hypertension. Diabetes mellitus type 2. Hypercholesterolemia. SURGICAL HISTORY : Inguinal hernia repair. AV fistula. Renal transplant. ENCOUNTER: Initial ACUITY: 2 day PAIN SCORE: 0/10 LOCATION: cranial Please note a normal MRA of the brain does not entirely exclude the possibility of a small aneurysm, nor the possibility of distal intracranial vessel disease. TECHNIQUE: 3D time of flight MRA was performed. Source images, multiplanar STS MIP, and 3D volume MIP reconstru ctions were reviewed. FINDINGS: Anterior circulation: Distal intracranial internal carotid arteries are patent with flow extending to the middle and anteri or cerebral arteries. There is no evidence for aneurysm, vessel truncation or stenosis, and no eviden ce for vascular malformation. Posterior circulation: Symmetric distal vertebral arteries with flow extending to basilar artery. There is no evidence for aneurysm, vessel truncation or stenosis, and no evidence for vascular malformation. CONCLUSION: 1. Unremarkable MRA examination without evidence for large vessel occlusion, aneurysm or vascular mal formation. Blake Leggett MD on May 01, 2017 at 8:20 Board Certified Radiologist. This report was verified electronically.
[2017-05-01] MEDS: SODIUM CHLORIDE 0.9% FLUSH 5 ML FLUSH IV FLUSH SCH ×2 (08:28→20:26)
[2017-05-01] MEDS: SODIUM BICARBONATE 650 MG TAB PO SCH ×2 (08:29→17:35)
[2017-05-01] MEDS: FUROSEMIDE 40 MG TAB PO SCH ×2 (08:29→17:35)
[2017-05-01] MEDS: hydrALAZINE HCL 25 MG TAB PO SCH ×3 (08:30→17:35)
[2017-05-01] MEDS: ASPIRIN 325 MG TAB PO SCH (08:30)
[2017-05-01] MEDS: HYDROCHLOROTHIAZIDE 25 MG TAB PO SCH (08:30)
[2017-05-01] MEDS: predniSONE 10 MG TAB PO SCH (08:31)
[2017-05-01] MEDS: METOPROLOL SUCCINATE 50 MG EXTENDED RELEASE TAB PO SCH (08:31)
[2017-05-01] MEDS: LEVOTHYROXINE SODIUM 25 MCG TAB PO SCH (08:38)
[2017-05-01] MEDS ORDERED: INFLUENZA VIRUS VACCINE (QUADRIVALENT) 0.5 ML SYR IM ONE (09:00)
[2017-05-01] MEDS ORDERED: LISINOPRIL 20 MG TAB PO SCH (09:00)
[2017-05-01] MEDS ORDERED: INSULIN DETEMIR 100 UNITS/ML VIAL SQ SCH (09:00)
--- NOTE | 2017-05-01 09:12 | HHI.PR ---
Subjective Remarks in no acute distress. says that ' still doesn't feel normal'. no slurred speech or focal weakness. d/w the RN. Objective Vitals Vital Signs Date Time Temp Pulse Resp B/P (MAP) Pulse Ox O2 Delivery O2 Flow Rate FiO2 05/01/17 04:00 Room Air 05/01/17 04:00 97.7 67 20 178/79 (112) 97 05/01/17 02:06 05/01/17 02:00 Room Air 05/01/17 02:00 97.6 63 20 187/91 (123) 95 05/01/17 02:00 65 05/01/17 00:00 76 18 169/80 (109) 98 Room Air 04/30/17 23:00 80 19 162/77 (105) 98 Room Air 04/30/17 22:00 82 20 160/90 (113) 97 Room Air 04/30/17 21:00 74 16 163/79 (107) 99 Room Air 04/30/17 20:30 71 16 159/75 (103) 98 Room Air 04/30/17 19:18 98 Room Air 04/30/17 18:34 97.8 89 16 252/81 (137) 98 I/O 04/30/17 04/30/17 04/30/17 05/01/17 05/01/17 05/01/17 07:00 15:00 23:00 07:00 15:00 23:00 Intake Total 0 ml Balance 0 ml Intake Oral 0 ml # Voids 0 Result Diagram: 04/30/17192904/30/171929 Imaging Last Impressions Head Magnetic Resonance Angiography 05/01/17 0000 Signed Impressions: Service Date/Time: Monday, May 01, 2017 07:38 - CONCLUSION: 1. Unremarkable MRA examination without evidence for large vessel occlusion, aneurysm or vascular malformation. Blake Leggett MD Brain MRI 05/01/17 0000 Signed Impressions: Service Date/Time: Monday, May 01, 2017 07:38 - CONCLUSION: 1. Mild small vessel periventricular and deep white matter ischemic demyelination. 2. Otherwise, unremarkable MRI examination of the brain. Blake Leggett MD Chest X-Ray 04/30/17 1842 Signed Impressions: Service Date/Time: Sunday, April 30, 2017 19:17 - CONCLUSION: Normal examination. Aurelio Lema MD Head CT 04/30/17 0000 Signed Impressions: Service Date/Time: Sunday, April 30, 2017 19:36 - CONCLUSION: Normal examination. Aurelio Lema MD Objective Remarks GENERAL: This is a well-nourished, well-developed patient, in no apparent distress. CARDIOVASCULAR: Regular rate and regular rhythm without murmurs, gallops, or rubs. RESPIRATORY: Clear to auscultation. Breath sounds equal bilaterally. No wheezes , rales, or rhonchi. GASTROINTESTINAL: Abdomen soft, non-tender, nondistended. Normal, active bowel sounds MUSCULOSKELETAL: Extremities without clubbing, cyanosis, or edema. NEURO: Alert & Oriented x4 to person, place, time, situation. Moves all ext x4 Medications and IVs Current Medications Ondansetron HCl (Zofran Inj) 4 mg ONCE ONCE IVP Last administered on 19:51; Start 04/30/17 at 19:15; Stop 04/30/17 at 19:16; Status DC Sodium Chloride (NS Flush) 2 ml UNSCH PRN IVF FLUSH AFTER USING IV ACCESS; Start 04/30/17 at 19:15; Stop 05/01/17 at 02:13; Status DC Calcium Gluconate (Calcium Gluconate Inj) 1 gm ONCE ONCE SLOW IVP Last administered on 04/30/17 21:14; Start 04/30/17 at 20:45; Stop 04/30/17 at 20:46 ; Status DC Insulin Human Regular (NovoLIN R INJ) 10 units ONCE ONCE IV PUSH Last administered on 04/30/17 21:10; Start 04/30/17 at 20:45; Stop 04/30/17 at 20:46 ; Status DC Dextrose (D50w (Vial) Inj) 50 ml ONCE ONCE IV PUSH Last administered on 21:09; Start 04/30/17 at 20:45; Stop 04/30/17 at 20:46; Status DC Sodium Bicarbonate (Sodium Bicarbonate 8.4% Inj) 50 meq ONCE ONCE SLOW IVP Last administered on 04/30/17 22:14; Start 04/30/17 at 20:45; Stop 04/30/17 at 20:46; Status DC Aspirin (Aspirin Chew) 162 mg ONCE ONCE CHEW Last administered on 04/30/17 22 :16; Start 04/30/17 at 21:30; Stop 04/30/17 at 21:31; Status DC IV Flush (NS Flush) 2 ml BID IV FLUSH Last administered on 05/01/17 08:28; Start 05/01/17 at 09:00 IV Flush (NS Flush) 2 ml UNSCH PRN IV FLUSH FLUSH AFTER USING IV ACCESS; Start 04/30/17 at 21:45 Aspirin (Aspirin) 325 mg DAILY PO ; Start 05/01/17 at 09:00 Insulin Aspart (NovoLOG SUPPLEMENTAL SCALE) 1 ACHS SQ ; Start 05/01/17 at 08:00 Dextrose (D50w (Syr) Inj) 50 ml UNSCH PRN IV PUSH HYPOGLYCEMIA-SEE COMMENTS; Start 04/30/17 at 21:45 Glucagon (Glucagon Inj) 1 mg UNSCH PRN OTHER HYPOGLYCEMIA-SEE COMMENTS; Start 04/30/17 at 21:45 Acetaminophen (Tylenol) 500 mg Q4H PRN PO HEADACHE; Start 04/30/17 at 22:00 Amlodipine Besylate (Norvasc) 10 mg DAILY PO Last administered on 05/01/17 08: 30; Start 05/01/17 at 09:00 Atorvastatin Calcium (Lipitor) 40 mg EVERY OTHER DAY PO ; Start 05/02/17 at 09: 00 Furosemide (Lasix) 40 mg BID@0900,1800 PO ; Start 05/01/17 at 09:00 Hydralazine HCl (Apresoline) 25 mg TID PO Last administered on 05/01/17 08:30 ; Start 05/01/17 at 09:00 Levothyroxine Sodium (Synthroid) 25 mcg DAILY@0600 PO Last administered on 05/01 08:38; Start 05/01/17 at 09:00 Mycophenolate Mofetil (Cellcept) 500 mg BID@0600,1800 PO Last administered on 05/01/17 05:41; Start 05/01/17 at 06:00 Pantoprazole Sodium (Protonix) 20 mg DAILY PRN PO REFLUX; Start 04/30/17 at 22: 45 Prednisone (Deltasone) 10 mg DAILY PO Last administered on 05/01/17 08:31; Start 05/01/17 at 09:00 Sodium Bicarbonate (Sodium Bicarbonate) 1,300 mg BIDPC PO Last administered on 05/01/17 08:29; Start 05/01/17 at 09:00 Tacrolimus (Prograf) 5 mg Q12H PO Last administered on 05/01/17 02:17; Start 04/30/17 at 23:00 Insulin Detemir (Levemir Inj) 20 units DAILY SQ ; Start 05/01/17 at 09:00 Lisinopril (Prinivil) 20 mg DAILY PO ; Start 05/01/17 at 09:00; Status Future Hold Metoprolol Succinate (Toprol Xl) 100 mg DAILY PO Last administered on 08:31; Start 05/01/17 at 09:00 Hydrochlorothiazide (Hydrodiuril) 25 mg DAILY PO Last administered on 08:30; Start 05/01/17 at 09:00 Influenza Virus Vaccine (Flu (Quadrivalent) Vaccine Inj) 0.5 ml ONCE ONCE IM ; Start 05/01/17 at 09:00; Stop 05/01/17 at 09:01; Status DC A/P Assessment and Plan A/P 1. Seizure activity EEG ordered Unclear if patient had postictal episodes Neurology consulted. 2. TIA MRI brain with no acute abnormality. MRA head unremarkable. echo and carotid doppler pending. Neurology consulted . 3. Hyperkalemia Patient's potassium 6.4 on admission Given insulin, D50, calcium gluconate and bicarbonate Repeat BMP pending 4. Chest pain ACS rule out pending Initial troponin/EKG within normal limits 5. CKD Creatinine 2.89, patient's baseline between 2.8-3.1 6. Status post renal transplant Continue home immunosuppression regimen 7. Hypertension Continue multidrug regimen from home Monitor 8. Hyperlipidemia Continue home statin 9. diabetes mellitus hold long acting insulin while NPO- continue accu-check with SSI FEN Nothing by mouth until passes swallow eval Electrolytes: As above Ameena Cabello MD May 01, 2017 09:12
[2017-05-01 12:28] LABS: BICARBONATE 20.2 MEQ/L (21.0-32.0); BLOOD UREA NITROGEN 71 MG/DL (7-18); CALCIUM 8.4 MG/DL (8.5-10.1); CHLORIDE 110 MEQ/L (98-107); CREATININE 2.66 MG/DL (0.60-1.30); GLOMERULAR FILTRATION RATE 30 ML/MIN (>89); GLUCOSE,RANDOM 100 MG/DL (74-106); SODIUM (NA) 139 MEQ/L (136-145)
[2017-05-01 12:29] LABS: CHOLESTEROL 198 MG/DL (120-200); TRIGLYCERIDES 156 MG/DL (42-150)
[2017-05-01 12:32] LABS: CHOLESTEROL/ HDL RATIO 2.38 RATIO; HDL CHOLESTEROL 83.1 MG/DL (40.0-60.0); LDL CHOLESTEROL 84 MG/DL (0-99); TROPONIN I 0.03 NG/ML (0.02-0.05)
[2017-05-01] MEDS ORDERED: SODIUM POLYSTYRENE SULFONATE SUSP 15 GM/60 ML CUP PO ONE (13:00)
[2017-05-01 13:36] LABS: HEMOGLOBIN A1C 8.4 % (4.3-6.0)
--- NOTE | 2017-05-01 14:14 | MG ---
cc: HANS ALVAREZ MD,MARGUERITE Turcios MD Lab No: Date: 05/01/17 Age: Sex: M Race: DATE OF : [address] Alvarado MEDICAL HISTORY Convulsion, intermittent chest pain, headache, dizziness, ruptured blood vessels in right eye, left facial droop yesterday, decreased sensation of the left arm. History of thyroid disease, congestive heart failure, hyperlipidemia , hypertension, GERD, kidney transplant, diabetes, end-stage renal disease. MEDICATIONS 1. Lipitor. 2. Norvasc. 3. Aspirin. 4. Lasix. 5. Apresoline. 6. Synthroid. 7. Prednisone. 8. Levemir. 9. Lisinopril. 10. Toprol XL. 11. Hydrochlorothiazide. 12. CellCept. 13. Prograf. DESCRIPTION The background activity is 8-9 Hz alpha superimposed by excess beta activity. During the recording there was dropout of the background rhythm with appearance of theta and sleep spindles. Hyperventilation was not done. Photic stimulation did not elicit a driving response. No electrographic seizures or epileptiform discharges were noted during the recording. INTERPRETATION This is an awake, drowsy and asleep EEG. Beta activity is a nonspecific finding that may indicate medication adverse effects like benzos and barbiturates. Absence of electrographic seizures or epileptiform discharges does not rule out the diagnosis of epilepsy. Clinical correlation is recommended. Hans Alvarez MD RGO/BJF /1:51 PM /1:55 PM MTDSolis
--- NOTE | 2017-05-01 15:05 | RADRPT ---
EXAM DATE/TIME: 05/01/2017 13:40 [facility] COMPARISON: No previous studies available for comparison. INDICATIONS : Cerebrovascular accident. MEDICAL HISTORY : Hypercholesterolemia. Hypertension. Congestive heart failure. Renal failure. SURGICAL HISTORY : Inguinal hernia repair. Transplant kidney. AV fistula left arm. ENCOUNTER: Initial ACUITY: 1 day PAIN SCORE: 10 LOCATION: Bilateral neck PEAK SYSTOLIC VELOCITIES (cm/sec): ICA/CCA RATIO: Right: 1.1 Left: 0.9 ICA: Right: 135 Left: 101 CCA: Right: 121 Left: 115 ECA: Right: 93 Left: 84 VERTEBRAL: Right: 54 antegrade Left: 53 antegrade Elevated flow velocities and ICA/CCA ratios have been found to correlate with increased degrees of vessel stenosis, calculated as percentage of diameter relative to a normal segment of distal ICA/CCA FINDINGS: RIGHT CAROTID: Mild atherosclerotic plaque of the proximal ICA. LEFT CAROTID: Minimal atherosclerotic plaque of the proximal ICA. VERTEBRAL ARTERIES: Antegrade flow is seen in both vertebral arteries. MISCELLANEOUS: None. CONCLUSION: Bilateral carotid bifurcation atherosclerotic plaque, mild on the right and minimal on the left. No h emodynamically significant narrowing. Drew Hoff MD on May 01, 2017 at 15:02 Board Certified Radiologist. This report was verified electronically.
--- NOTE | 2017-05-01 18:30 | ECHRPT ---
Indication: cva/tia CONCLUSIONS Normal left ventricular size. Moderate concentric left ventricular hypertrophy. The left ventricular systolic function is hyperdynamic with an estimated ejection fraction in the ra nge of 65- 70%. Trace mitral valve regurgitation. There is trace tricuspid valve regurgitation. Normal left ventricular size. Moderate concentric left ventricular hypertrophy. The left ventricular systolic function is hyperdynamic with an estimated ejection fraction in the ra nge of 65- 70%. Trace mitral valve regurgitation. There is trace tricuspid valve regurgitation. aortic valve sclerosis BP: / HR: Rhythm: Sinus MEASUREMENTS (Male / Female) Normal Values Technical Quality:Good 2D ECHO LV Diastolic Diameter PLAX 5.0 cm 4.2 - 5.9 / 3.9 - 5.3 cm LV Systolic Diameter PLAX 3.4 cm IVS Diastolic Thickness 1.7 cm 0.6 - 1.0 / 0.6 - 0.9 cm LVPW Diastolic Thickness 0.9 cm 0.6 - 1.0 / 0.6 - 0.9 cm LV Relative Wall Thickness 0.5 RV Internal Dim ED PLAX 2.8 cm LA Systolic Diameter LX 3.7 cm 3.0 - 4.0 / 2.7 - 3.8 cm M-MODE Aortic Root Diameter MM 3.2 cm AV Cusp Separation MM 1.8 cm DOPPLER Mitral E Point Velocity 71.6 cm/s Mitral A Point Velocity 80.8 cm/s Mitral E to A Ratio 0.9 TR Peak Velocity 266.0 cm/s TR Peak Gradient 28.3 mmHg Right Atrial Pressure 5.0 mmHg Pulmonary Artery Systolic Pressu 33.3 mmHg Right Ventricular Systolic Press 33.3 mmHg FINDINGS LEFT VENTRICLE Normal left ventricular size. Moderate concentric left ventricular hypertrophy. The left ventricular systolic function is hyperdynamic with an estimated ejection fraction in the ra nge of 65- 70%. RIGHT VENTRICLE Normal right ventricular size and systolic function. LEFT ATRIUM The left atrial size is normal. RIGHT ATRIUM The right atrial size is normal. ATRIAL SEPTUM Normal atrial septal thickness without atrial level shunting by limited color doppler interrogation. AORTA The aortic root and proximal ascending aorta are normal in size on limited imaging. MITRAL VALVE Trace mitral valve regurgitation. AORTIC VALVE Trileaflet aortic valve. No aortic valve stenosis or regurgitation. TRICUSPID VALVE There is trace tricuspid valve regurgitation. PULMONARY VALVE No pulmonary valve regurgitation or stenosis. VESSELS The inferior vena cava is normal in size. PERICARDIUM No pericardial effusion. Tanner Matos MD, FACC, FSCAI (Electronically Signed) Final Date:01 May 2017 18:28
[2017-05-01 20:43] LABS: BICARBONATE 16.2 MEQ/L (21.0-32.0); CALCIUM 7.6 MG/DL (8.5-10.1); CREATININE 2.85 MG/DL (0.60-1.30); TROPONIN I 0.02 NG/ML (0.02-0.05)
[2017-05-01] MEDS: ACETAMINOPHEN 500 MG CPLT PO PRN (22:05)
[2017-05-02] VITALS (7 sets, daily range): BP systolic 134–159; BP diastolic 70–87; PULSE 59–88; RESP 16–20; TEMP 97.8–98.1; O2SAT 94–98
--- NOTE | 2017-05-02 00:05 | MB ---
cc: HANS ALVAREZ MD DATE OF CONSULTATION 05/01/17 REASON FOR CONSULTATION TIA. HISTORY OF PRESENT ILLNESS Mr. Gabriel is a 56-year-old -[place]ian male with past medical history of renal transplant 2008, hypertension, diabetes mellitus, hyperlipidemia, presents with one day history of left-sided facial droop that spontaneously resolved. The patient reports that his noticed that his face was drooping on the left side all day yesterday. Today he woke up with resolved symptoms. The patient reports that earlier when his was at work he felt when he woke up that his body started shaking and he felt awkward. Denies loss of bowel and bladder control. Denies tongue biting or foaming. He texted his and the who sits at the bedside stated that his texted was intermittent, then a few minutes later she called him and she did not feel that he had slurred speech or he was confused. He checked his blood sugar and during the episode it was 220. He has no history of headache or seizure disorder. 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 The patient has a sleeping disorder, sometimes when he wakes up he feels that his body is shaking. The states that he snores even when he takes nap. He naps during the day, he snores. REVIEW OF SYSTEMS A 12-point review of systems is negative except for what is stated in the HPI. PAST MEDICAL HISTORY Insulin-dependent diabetes mellitus, hypertension, hyperlipidemia, renal transplant 2008 for essential hypertension. PAST SURGICAL HISTORY Renal transplant, ACL repair left knee, hernia repair twice, fistula placement. REPORTED MEDICATIONS 1. Lasix. 2. Protonix. 3. Lisinopril. 4. Metoprolol. 5. Levothyroxine. 6. Amolodipine. 7. Atorvastatin. 8. Tacrolimus. 9. Zofran. 10. Baclofen. 11. Lantus. 12. Vitamin D. 13. Magnesium. 14. Sodium bicarb. 15. Mycophenolate. ALLERGIES BANANA, BEET, LATEX, PEAS. FAMILY HISTORY Father of [place] at 95. Mother of pneumonia. SOCIAL HISTORY Never a smoker, quit alcohol years ago. Denies illicit drug abuse. PHYSICAL EXAMINATION GENERAL: Lays in bed, comfortable, pleasant good historian. Not in acute distress HEENT: Atraumatic, normocephalic. Intact hearing and intact vision. NECK: Supple. No signs of meningeal irritation. CARDIOVASCULAR: Regular rate and rhythm. RESPIRATORY: Clear to auscultation. No wheezes. GASTROINTESTINAL: Soft abdomen, nontender, nondistended. MUSCULOSKELETAL: Without clubbing, cyanosis or edema. NEUROLOGICAL: Awake, alert, oriented to time, person and place. No dysphasia. No dysarthria. Cranial nerves II-XII are grossly intact. Motor system examination, 5/5 bilateral symmetrical upper and lower extremities, normal tone and no abnormal movement. Sensation is intact throughout. Reflexes 2+ bilateral and symmetrical, but for bilateral 1+ ankle reflexes. Plantar are bilateral downgoing. Normal gait. No ataxia. Normal tandem gait. PSYCHIATRIC: Normal mood, cooperative and normal behavior. LABORATORY DATA White blood cells 5.2, hemoglobin 9.9, platelet 221, sodium 137, potassium 6.4, anion gap 11, BUN 78, creatinine 285, random glucose 104. Calcium 7.6, triglyceride 156, cholesterol 198, LDL 84, HDL 83. INR 1. IMAGING STUDIES - Head CT scan revealed an unremarkable study. - Head MRA revealed unremarkable exam without evidence of large vessel occlusion aneurysm or vascular malformation. - Carotid ultrasound revealed bilateral carotid bifurcation, atherosclerotic plaque, mild on the right and minimal on the left. No hemodynamically significant narrowing. - Brain MRI without contrast revealed mild small vessel periventricular deep white matter ischemic demyelination. Unremarkable examination. DIAGNOSTIC IMPRESSION 1. Seizure-like activity. 2. May be related to sleep disorder. 3. No reported ictal activity or postictal confusion state. No witnessed episodes. 4. Hyperkalemia. 5. CKD. 6. Hypertension, status post renal transplant. 7. Hyperlipidemia. PLAN 1. Neuro checks q. four hourly. 2. EEG. 3. Seizure precautions. 4. Fall precautions. 5. No need for AED at this time. 6. Follow up outpatient for evaluation of sleep disorder. 7. Continue supportive medical therapy. 8. DVT prophylaxis. 9. GI prophylaxis. Thank you for the opportunity to participate in the care of your patient. Hans Alvarez MD RGO/GILLES /11:12 PM /11:33 PM MTDSolis
[2017-05-02] MEDS: MYCOPHENOLATE MOFETIL 500 MG TAB PO SCH ×2 (05:55→17:09)
[2017-05-02] MEDS: LEVOTHYROXINE SODIUM 25 MCG TAB PO SCH (05:55)
[2017-05-02] MEDS: INSULIN ASPART SUPPLEMENTAL SCALE SQ SCH ×4 (08:00→20:32)
[2017-05-02] MEDS: ASPIRIN 325 MG TAB PO SCH (08:42)
[2017-05-02] MEDS: FUROSEMIDE 40 MG TAB PO SCH ×2 (08:43→17:02)
[2017-05-02] MEDS: predniSONE 10 MG TAB PO SCH (08:52)
[2017-05-02] MEDS: METOPROLOL SUCCINATE 50 MG EXTENDED RELEASE TAB PO SCH (08:53)
[2017-05-02] MEDS: HYDROCHLOROTHIAZIDE 25 MG TAB PO SCH (08:53)
[2017-05-02] MEDS: SODIUM CHLORIDE 0.9% FLUSH 5 ML FLUSH IV FLUSH SCH ×2 (08:53→20:29)
[2017-05-02] MEDS: hydrALAZINE HCL 25 MG TAB PO SCH ×3 (08:53→17:09)
[2017-05-02] MEDS: SODIUM BICARBONATE 650 MG TAB PO SCH ×2 (08:53→17:09)
[2017-05-02] MEDS: ATORVASTATIN 40 MG TAB PO SCH (08:53)
--- NOTE | 2017-05-02 08:55 | HHI.PR ---
Subjective Remarks in no acute distress. no chest pain, sob or dizziness. d/w the RN and no acute issues over night. Objective Vitals Vital Signs Date Time Temp Pulse Resp B/P (MAP) Pulse Ox O2 Delivery O2 Flow Rate FiO2 05/02/17 07:53 78 05/02/17 07:53 Room Air 05/02/17 05:25 Room Air 05/02/17 00:42 97.8 59 16 159/87 (111) 94 05/01/17 23:35 Room Air 05/01/17 20:02 70 05/01/17 20:00 98.3 70 18 141/72 (95) 94 05/01/17 16:00 98.1 74 20 152/73 (99) 97 05/01/17 12:00 98.2 73 20 143/69 (93) 95 I/O 05/01/17 05/01/17 05/01/17 05/02/17 05/02/17 05/02/17 07:00 15:00 23:00 07:00 15:00 23:00 Intake Total 0 ml 600 ml 240 ml 0 ml Output Total 250 ml Balance 0 ml 600 ml -10 ml 0 ml Intake Oral 0 ml 600 ml 240 ml IV Total 0 ml Output Urine Total 250 ml # Voids 0 5 # Bowel Movements 1 Result Diagram: 04/30/170 05/01/171931 Imaging Last Impressions Head Magnetic Resonance Angiography 05/01/17 0000 Signed Impressions: Service Date/Time: Monday, May 01, 2017 07:38 - CONCLUSION: 1. Unremarkable MRA examination without evidence for large vessel occlusion, aneurysm or vascular malformation. Blake Leggett MD Carotid Artery Ultrasound 05/01/17 0000 Signed Impressions: Service Date/Time: Monday, May 01, 2017 13:40 - CONCLUSION: Bilateral carotid bifurcation atherosclerotic plaque, mild on the right and minimal on the left. No hemodynamically significant narrowing. Drew Hoff MD Brain MRI 05/01/17 0000 Signed Impressions: Service Date/Time: Monday, May 01, 2017 07:38 - CONCLUSION: 1. Mild small vessel periventricular and deep white matter ischemic demyelination. 2. Otherwise, unremarkable MRI examination of the brain. Blake Leggett MD Chest X-Ray 04/30/17 184 Signed Impressions: Service Date/Time: Sunday, April 30, 2017 19:17 - CONCLUSION: Normal examination. Aurelio Lema MD Head CT 04/30/17 0000 Signed Impressions: Service Date/Time: Sunday, April 30, 2017 19:36 - CONCLUSION: Normal examination. Aurelio Lema MD Objective Remarks GENERAL: This is a well-nourished, well-developed patient, in no apparent distress. CARDIOVASCULAR: Regular rate and regular rhythm without murmurs, gallops, or rubs. RESPIRATORY: Clear to auscultation. Breath sounds equal bilaterally. No wheezes , rales, or rhonchi. GASTROINTESTINAL: Abdomen soft, non-tender, nondistended. Normal, active bowel sounds MUSCULOSKELETAL: Extremities without clubbing, cyanosis, or edema. NEURO: Alert & Oriented x4 to person, place, time, situation. Moves all ext x4 Medications and IVs Current Medications Ondansetron HCl (Zofran Inj) 4 mg ONCE ONCE IVP Last administered on 19:51; Start 04/30/17 at 19:15; Stop 04/30/17 at 19:16; Status DC Sodium Chloride (NS Flush) 2 ml UNSCH PRN IVF FLUSH AFTER USING IV ACCESS; Start 04/30/17 at 19:15; Stop 05/01/17 at 02:13; Status DC Calcium Gluconate (Calcium Gluconate Inj) 1 gm ONCE ONCE SLOW IVP Last administered on 04/30/17 21:14; Start 04/30/17 at 20:45; Stop 04/30/17 at 20:46 ; Status DC Insulin Human Regular (NovoLIN R INJ) 10 units ONCE ONCE IV PUSH Last administered on 04/30/17 21:10; Start 04/30/17 at 20:45; Stop 04/30/17 at 20:46 ; Status DC Dextrose (D50w (Vial) Inj) 50 ml ONCE ONCE IV PUSH Last administered on 21:09; Start 04/30/17 at 20:45; Stop 04/30/17 at 20:46; Status DC Sodium Bicarbonate (Sodium Bicarbonate 8.4% Inj) 50 meq ONCE ONCE SLOW IVP Last administered on 04/30/17 22:14; Start 04/30/17 at 20:45; Stop 04/30/17 at 20:46; Status DC Aspirin (Aspirin Chew) 162 mg ONCE ONCE CHEW Last administered on 04/30/17 22 :16; Start 04/30/17 at 21:30; Stop 04/30/17 at 21:31; Status DC IV Flush (NS Flush) 2 ml BID IV FLUSH Last administered on 05/01/17 20:26; Start 05/01/17 at 09:00 IV Flush (NS Flush) 2 ml UNSCH PRN IV FLUSH FLUSH AFTER USING IV ACCESS; Start 04/30/17 at 21:45 Aspirin (Aspirin) 325 mg DAILY PO ; Start 05/01/17 at 09:00 Insulin Aspart (NovoLOG SUPPLEMENTAL SCALE) 1 ACHS SQ Last administered on 05/01 17:39; Start 05/01/17 at 08:00 Dextrose (D50w (Syr) Inj) 50 ml UNSCH PRN IV PUSH HYPOGLYCEMIA-SEE COMMENTS; Start 04/30/17 at 21:45 Glucagon (Glucagon Inj) 1 mg UNSCH PRN OTHER HYPOGLYCEMIA-SEE COMMENTS; Start 04/30/17 at 21:45 Acetaminophen (Tylenol) 500 mg Q4H PRN PO HEADACHE Last administered on 22:05; Start 04/30/17 at 22:00 Amlodipine Besylate (Norvasc) 10 mg DAILY PO Last administered on 05/01/17 08: 30; Start 05/01/17 at 09:00 Atorvastatin Calcium (Lipitor) 40 mg EVERY OTHER DAY PO ; Start 05/02/17 at 09: 00 Furosemide (Lasix) 40 mg BID@0900,1800 PO ; Start 05/01/17 at 09:00 Hydralazine HCl (Apresoline) 25 mg TID PO Last administered on 05/01/17 17:35 ; Start 05/01/17 at 09:00 Levothyroxine Sodium (Synthroid) 25 mcg DAILY@0600 PO Last administered on 05/02 05:55; Start 05/01/17 at 09:00 Mycophenolate Mofetil (Cellcept) 500 mg BID@0600,1800 PO Last administered on 05/02/17 05:55; Start 05/01/17 at 06:00 Pantoprazole Sodium (Protonix) 20 mg DAILY PRN PO REFLUX; Start 04/30/17 at 22: 45 Prednisone (Deltasone) 10 mg DAILY PO Last administered on 05/01/17 08:31; Start 05/01/17 at 09:00 Sodium Bicarbonate (Sodium Bicarbonate) 1,300 mg BIDPC PO Last administered on 05/01/17 17:35; Start 05/01/17 at 09:00 Tacrolimus (Prograf) 5 mg Q12H PO Last administered on 05/01/17 23:03; Start 04/30/17 at 23:00 Insulin Detemir (Levemir Inj) 20 units DAILY SQ ; Start 05/01/17 at 09:00; Status Future Hold Lisinopril (Prinivil) 20 mg DAILY PO ; Start 05/01/17 at 09:00; Status Future Hold Metoprolol Succinate (Toprol Xl) 100 mg DAILY PO Last administered on 08:31; Start 05/01/17 at 09:00 Hydrochlorothiazide (Hydrodiuril) 25 mg DAILY PO Last administered on 08:30; Start 05/01/17 at 09:00 Influenza Virus Vaccine (Flu (Quadrivalent) Vaccine Inj) 0.5 ml ONCE ONCE IM ; Start 05/01/17 at 09:00; Stop 05/01/17 at 09:01; Status DC Sodium Polystyrene Sulfonate (Kayexalate Liq) 15 gm ONCE ONCE PO Last administered on 05/01/17 13:31; Start 05/01/17 at 13:00; Stop 05/01/17 at 13:01 ; Status DC A/P Assessment and Plan A/P 1. Seizure activity EEG with no epileptiform activity Unclear if patient had postictal episodes Neurology consult appreciated; no antiepileptics for now. 2. TIA MRI brain with no acute abnormality. MRA head unremarkable. carotid doppler with no significant stenosis. echo with EF 70% and moderate LVH. Neurology consulted as noted above. 3.CKD with Hyperkalemia- s/p kidney transplant. BMP stat today. continue immunosuppression. 4. Chest pain ACS ruled out. 5. CKD Creatinine 2.89, patient's baseline between 2.8-3.1 6. Hypertension Continue multidrug regimen from home Monitor 7. Hyperlipidemia Continue home statin 8. diabetes mellitus hold long acting insulin for now. continue accu-check with SSI Discharge Planning possible dc home within the next 24 hrs- pending the neurology follow-up/ recommendations- pending BMP today. Ameena Cabello MD May 02, 2017 08:55
[2017-05-02] MEDS: TACROLIMUS 5 MG CAP PO SCH (11:00)
--- NOTE | 2017-05-02 11:44 | EKG ---
Date Performed: 05/01/2017 Time Performed: 09:30:56 PTAGE: 56 years EKG: Sinus rhythm WITH OCCASIONAL SUPRAVENTRICULAR PREMATURE COMPLEXES POSSIBLE RIGHT VENTRICULAR CONDUCTION DELAY SEP CALLUM MYOCARDIAL INFARCTION - age indeterminate ABNORMAL ECG PREVIOUS TRACING : 04/30/2017 18.54 DOCTOR: Tanner Matos Interpretating Date/Time 05/02/2017 11:43:29
--- NOTE | 2017-05-02 11:44 | EKG ---
Date Performed: 04/30/2017 Time Performed: 18:54:35 PTAGE: 56 years EKG: Sinus rhythm NONSPECIFIC T-WAVE ABNORMALITY BORDERLINE ECG PREVIOUS TRACING : 02/12/2017 08.25 DOCTOR: Tanner Matos Interpretating Date/Time 05/02/2017 11:43:16
[2017-05-02 11:45] LABS: BICARBONATE 20.5 MEQ/L (21.0-32.0); CALCIUM 8.3 MG/DL (8.5-10.1); CREATININE 2.66 MG/DL (0.60-1.30)
--- NOTE | 2017-05-02 12:47 | HHI.PR ---
Review/Management Diagnosis - Seizure-like activity. May be related to sleep disorder.. No reported ictal activity or postictal confusion state. No witnessed episodes. - Hyperkalemia. - CKD. - Hypertension - S/p renal transplant - Hyperlipidemia. Plan - Neurologic exam is non-focal - Neurologic investigations did not show evidence of an acute intracranial abnormality - Fall precautions. - No clinical evidence to be started on AEDs' - Follow up as outpatient for evaluation of sleep disorder. - Continue supportive medical therapy. - DVT prophylaxis. - GI prophylaxis. - Please all for questions Diagnosis/Plan: Subjective Subjective Comments No reported seizure activity overnight Patient denies feeling dizzy or any convulsions MRI brain is unremarkable for an acute intracranial abnormality EEG with no evidence of an ictal activity or epileptiform discharges MRA head with no evidence of an acute intracranial abnormality CUS with no evidence of a hemodynamically significant stenosis Active Medications Current Medications Medications (Trade) Dose Ordered Sig/Yasmany Route Start Time Stop Time Status Last Admin (NS Flush) 2 ml BID IV FLUSH 05/01/17 09:00 05/02/17 08:53 (NS Flush) 2 ml UNSCH PRN IV FLUSH 04/30/17 21:45 (Aspirin) 325 mg DAILY PO 05/01/17 09:00 (NovoLOG SUPPLEMENTAL SCALE) 1 ACHS SQ 05/01/17 08:00 05/01/17 17:39 (D50w (Syr) Inj) 50 ml UNSCH PRN IV PUSH 04/30/17 21:45 (Glucagon Inj) 1 mg UNSCH PRN OTHER 04/30/17 21:45 (Tylenol) 500 mg Q4H PRN PO 04/30/17 22:00 05/01/17 22:05 (Norvasc) 10 mg DAILY PO 05/01/17 09:00 05/02/17 08:53 (Lipitor) 40 mg EVERY OTHER DAY PO 05/02/17 09:00 05/02/17 08:53 (Lasix) 40 mg BID@0900,1800 PO 05/01/17 09:00 (Apresoline) 25 mg TID PO 05/01/17 09:00 05/02/17 08:53 (Synthroid) 25 mcg DAILY@0600 PO 05/01/17 09:00 05/02/17 05:55 (Cellcept) 500 mg BID@0600,1800 PO 05/01/17 06:00 05/02/17 05:55 (Protonix) 20 mg DAILY PRN PO 04/30/17 22:45 (Deltasone) 10 mg DAILY PO 05/01/17 09:00 05/02/17 08:52 (Sodium Bicarbonate) 1,300 mg BIDPC PO 05/01/17 09:00 05/02/17 08:53 (Prograf) 5 mg Q12H PO 04/30/17 23:00 05/02/17 11:00 (Levemir Inj) 20 units DAILY SQ 05/01/17 09:00 Future Hold (Prinivil) 20 mg DAILY PO 05/01/17 09:00 Future Hold (Toprol Xl) 100 mg DAILY PO 05/01/17 09:00 05/02/17 08:53 (Hydrodiuril) 25 mg DAILY PO 05/01/17 09:00 05/02/17 08:53 Allergies Allergies Coded Allergies banana (Unverified Allergy, Severe, HIVES, 04/30/17) beet (Unverified Allergy, Severe, HIVES, 04/30/17) latex (Unverified Allergy, Severe, Hives and rash, 04/30/17) peas (Unverified Allergy, Severe, HIVES, 04/30/17) Uncoded Allergies FRESH TOMATO ( Allergy, Severe, 12/04/16) Review of Systems All other ROS: ROS reviewed as documented in chart Exam I&O / VS 05/02/17 05/02/17 05/03/17 15:00 23:00 07:00 Intake Total 0 ml Balance 0 ml IV Total 0 ml Vital Signs Date Time Temp Pulse Resp B/P (MAP) Pulse Ox O2 Delivery O2 Flow Rate FiO2 05/02/17 07:53 78 05/02/17 07:53 Room Air 05/02/17 05:25 Room Air 05/02/17 00:42 97.8 59 16 159/87 (111) 94 05/01/17 23:35 Room Air 05/01/17 20:02 70 05/01/17 20:00 98.3 70 18 141/72 (95) 94 05/01/17 16:00 98.1 74 20 152/73 (99) 97 Exam Comments GENERAL: Awake, up and around walking in the room Not in acute distress HEENT: Atraumatic, normocephalic. Intact hearing and intact vision. NECK: Supple. No signs of meningeal irritation. CARDIOVASCULAR: Regular rate and rhythm. RESPIRATORY: Clear to auscultation. No wheezes. GASTROINTESTINAL: Soft abdomen, nontender, nondistended. MUSCULOSKELETAL: Without clubbing, cyanosis or edema. NEUROLOGICAL: Awake, alert, oriented to time, person and place. No dysphasia. No dysarthria. Cranial nerves II-XII are grossly intact. Motor system examination, 5/5 bilateral symmetrical upper and lower extremities, normal tone and no abnormal movement. Sensation is intact throughout. Reflexes 2+ bilateral and symmetrical, but for bilateral 1+ ankle reflexes. Plantar are bilateral downgoing. Normal gait. No ataxia. Normal tandem gait. PSYCHIATRIC: Normal mood, cooperative and normal behavior. Objective Radiology Results Last 72 hours Impressions Head Magnetic Resonance Angiography 05/01/17 0000 Signed Impressions: Service Date/Time: Monday, May 01, 2017 07:38 - CONCLUSION: 1. Unremarkable MRA examination without evidence for large vessel occlusion, aneurysm or vascular malformation. Blake Leggett MD Carotid Artery Ultrasound 05/01/17 0000 Signed Impressions: Service Date/Time: Monday, May 01, 2017 13:40 - CONCLUSION: Bilateral carotid bifurcation atherosclerotic plaque, mild on the right and minimal on the left. No hemodynamically significant narrowing. Drew Hoff MD Brain MRI 05/01/17 0000 Signed Impressions: Service Date/Time: Monday, May 01, 2017 07:38 - CONCLUSION: 1. Mild small vessel periventricular and deep white matter ischemic demyelination. 2. Otherwise, unremarkable MRI examination of the brain. Blake Leggett MD Chest X-Ray 04/30/17 1842 Signed Impressions: Service Date/Time: Sunday, April 30, 2017 19:17 - CONCLUSION: Normal examination. Aurelio Lema MD Head CT 04/30/17 0000 Signed Impressions: Service Date/Time: Sunday, April 30, 2017 19:36 - CONCLUSION: Normal examination. Aurelio Lema MD Micro and Labs Laboratory Tests Test 05/01/17 19:32 05/02/17 10:25 Blood Urea Nitrogen 78 71 Creatinine 2.85 2.66 Random Glucose 104 238 Calcium Level 7.6 8.3 Sodium Level 137 137 Potassium Level 6.4 5.5 Chloride Level 110 108 Carbon Dioxide Level 16.2 20.5 Anion Gap 11 9 Estimat Glomerular Filtration Rate 28 30 Total Creatine Kinase 86 Troponin I 0.02 Mariely Alvarez MD May 02, 2017 12:47
[2017-05-02] MEDS ORDERED: SODIUM POLYSTYRENE SULFONATE SUSP 15 GM/60 ML CUP PO ONE ×2 (13:45→20:00)
[2017-05-03] VITALS (7 sets, daily range): BP systolic 139–173; BP diastolic 71–94; PULSE 66–84; RESP 17–20; TEMP 97.3–98.9; O2SAT 95–99
[2017-05-03] MEDS: TACROLIMUS 5 MG CAP PO SCH ×3 (00:05→22:27)
[2017-05-03] MEDS ORDERED: ONDANSETRON HCL 4 MG/2 ML VIAL IV PUSH PRN (02:30)
[2017-05-03] MEDS: MYCOPHENOLATE MOFETIL 500 MG TAB PO SCH ×2 (05:49→17:30)
[2017-05-03] MEDS: ACETAMINOPHEN 500 MG CPLT PO PRN ×3 (05:49→20:31)
[2017-05-03] MEDS: LEVOTHYROXINE SODIUM 25 MCG TAB PO SCH (05:49)
[2017-05-03] MEDS: INSULIN ASPART SUPPLEMENTAL SCALE SQ SCH ×4 (08:06→20:31)
[2017-05-03] MEDS: ASPIRIN 325 MG TAB PO SCH ×2 (08:10→08:12)
[2017-05-03] MEDS: SODIUM BICARBONATE 650 MG TAB PO SCH ×2 (08:10→17:29)
[2017-05-03] MEDS: HYDROCHLOROTHIAZIDE 25 MG TAB PO SCH (08:12)
[2017-05-03] MEDS: METOPROLOL SUCCINATE 50 MG EXTENDED RELEASE TAB PO SCH (08:12)
[2017-05-03] MEDS: hydrALAZINE HCL 25 MG TAB PO SCH ×3 (08:12→17:29)
[2017-05-03] MEDS: predniSONE 10 MG TAB PO SCH (08:12)
[2017-05-03] MEDS: SODIUM CHLORIDE 0.9% FLUSH 5 ML FLUSH IV FLUSH SCH ×2 (08:13→20:33)
[2017-05-03] MEDS: FUROSEMIDE 40 MG TAB PO SCH ×2 (08:14→17:30)
--- NOTE | 2017-05-03 09:24 | HHI.PR ---
Subjective Remarks in no acute distress. overall doing fine. d/w the RN and no acute issues over night. Objective Vitals Vital Signs Date Time Temp Pulse Resp B/P (MAP) Pulse Ox O2 Delivery O2 Flow Rate FiO2 05/03/17 08:03 97.3 67 18 139/79 (99) 97 05/03/17 04:00 97.7 66 20 173/77 (109) 97 05/03/17 00:00 97.9 71 17 150/71 (97) 95 05/02/17 20:50 66 05/02/17 20:30 Room Air 05/02/17 20:00 97.9 68 17 151/84 (106) 96 05/02/17 20:00 Room Air 05/02/17 18:16 05/02/17 15:26 88 05/02/17 12:00 98.0 72 20 145/70 (95) 98 I/O 05/02/17 05/02/17 05/02/17 05/03/17 05/03/17 05/03/17 07:00 15:00 23:00 07:00 15:00 23:00 Intake Total 240 ml 0 ml 0 ml 240 ml Output Total 250 ml Balance -10 ml 0 ml 0 ml 240 ml Intake Oral 240 ml 240 ml IV Total 0 ml 0 ml Output Urine Total 250 ml # Voids 1 # Bowel Movements 1 Result Diagram: 04/30/17 1930 05/02/17 2359 Imaging Last Impressions Head Magnetic Resonance Angiography 05/01/17 0000 Signed Impressions: Service Date/Time: Monday, May 01, 2017 07:38 - CONCLUSION: 1. Unremarkable MRA examination without evidence for large vessel occlusion, aneurysm or vascular malformation. Blake Leggett MD Carotid Artery Ultrasound 05/01/17 0000 Signed Impressions: Service Date/Time: Monday, May 01, 2017 13:40 - CONCLUSION: Bilateral carotid bifurcation atherosclerotic plaque, mild on the right and minimal on the left. No hemodynamically significant narrowing. Drew Hoff MD Brain MRI 05/01/17 0000 Signed Impressions: Service Date/Time: Monday, May 01, 2017 07:38 - CONCLUSION: 1. Mild small vessel periventricular and deep white matter ischemic demyelination. 2. Otherwise, unremarkable MRI examination of the brain. Blake Leggett MD Chest X-Ray 04/30/17 1842 Signed Impressions: Service Date/Time: Sunday, April 30, 2017 19:17 - CONCLUSION: Normal examination. Aurelio Lema MD Head CT 04/30/17 0000 Signed Impressions: Service Date/Time: Sunday, April 30, 2017 19:36 - CONCLUSION: Normal examination. Aurelio Lema MD Objective Remarks GENERAL: This is a well-nourished, well-developed patient, in no apparent distress. CARDIOVASCULAR: Regular rate and regular rhythm without murmurs, gallops, or rubs. RESPIRATORY: Clear to auscultation. Breath sounds equal bilaterally. No wheezes , rales, or rhonchi. GASTROINTESTINAL: Abdomen soft, non-tender, nondistended. Normal, active bowel sounds MUSCULOSKELETAL: Extremities without clubbing, cyanosis, or edema. NEURO: Alert & Oriented x4 to person, place, time, situation. Moves all ext x4 Procedures none Medications and IVs Current Medications Ondansetron HCl (Zofran Inj) 4 mg ONCE ONCE IVP Last administered on 19:51; Start 04/30/17 at 19:15; Stop 04/30/17 at 19:16; Status DC Sodium Chloride (NS Flush) 2 ml UNSCH PRN IVF FLUSH AFTER USING IV ACCESS; Start 04/30/17 at 19:15; Stop 05/01/17 at 02:13; Status DC Calcium Gluconate (Calcium Gluconate Inj) 1 gm ONCE ONCE SLOW IVP Last administered on 04/30/17 21:14; Start 04/30/17 at 20:45; Stop 04/30/17 at 20:46 ; Status DC Insulin Human Regular (NovoLIN R INJ) 10 units ONCE ONCE IV PUSH Last administered on 04/30/17 21:10; Start 04/30/17 at 20:45; Stop 04/30/17 at 20:46 ; Status DC Dextrose (D50w (Vial) Inj) 50 ml ONCE ONCE IV PUSH Last administered on 21:09; Start 04/30/17 at 20:45; Stop 04/30/17 at 20:46; Status DC Sodium Bicarbonate (Sodium Bicarbonate 8.4% Inj) 50 meq ONCE ONCE SLOW IVP Last administered on 04/30/17 22:14; Start 04/30/17 at 20:45; Stop 04/30/17 at 20:46; Status DC Aspirin (Aspirin Chew) 162 mg ONCE ONCE CHEW Last administered on 04/30/17 22 :16; Start 04/30/17 at 21:30; Stop 04/30/17 at 21:31; Status DC IV Flush (NS Flush) 2 ml BID IV FLUSH Last administered on 05/03/17 08:13; Start 05/01/17 at 09:00 IV Flush (NS Flush) 2 ml UNSCH PRN IV FLUSH FLUSH AFTER USING IV ACCESS; Start 04/30/17 at 21:45 Aspirin (Aspirin) 325 mg DAILY PO ; Start 05/01/17 at 09:00 Insulin Aspart (NovoLOG SUPPLEMENTAL SCALE) 1 ACHS SQ Last administered on 05/03 08:06; Start 05/01/17 at 08:00 Dextrose (D50w (Syr) Inj) 50 ml UNSCH PRN IV PUSH HYPOGLYCEMIA-SEE COMMENTS; Start 04/30/17 at 21:45 Glucagon (Glucagon Inj) 1 mg UNSCH PRN OTHER HYPOGLYCEMIA-SEE COMMENTS; Start 04/30/17 at 21:45 Acetaminophen (Tylenol) 500 mg Q4H PRN PO HEADACHE Last administered on 05:49; Start 04/30/17 at 22:00 Amlodipine Besylate (Norvasc) 10 mg DAILY PO Last administered on 05/03/17 08: 12; Start 05/01/17 at 09:00 Atorvastatin Calcium (Lipitor) 40 mg EVERY OTHER DAY PO Last administered on 05/02/17 08:53; Start 05/02/17 at 09:00 Furosemide (Lasix) 40 mg BID@0900,1800 PO ; Start 05/01/17 at 09:00 Hydralazine HCl (Apresoline) 25 mg TID PO Last administered on 05/03/17 08:12 ; Start 05/01/17 at 09:00 Levothyroxine Sodium (Synthroid) 25 mcg DAILY@0600 PO Last administered on 05/03 05:49; Start 05/01/17 at 09:00 Mycophenolate Mofetil (Cellcept) 500 mg BID@0600,1800 PO Last administered on 05/03/17 05:49; Start 05/01/17 at 06:00 Pantoprazole Sodium (Protonix) 20 mg DAILY PRN PO REFLUX Last administered on 05/03/17 00:58; Start 04/30/17 at 22:45 Prednisone (Deltasone) 10 mg DAILY PO Last administered on 05/03/17 08:12; Start 05/01/17 at 09:00 Sodium Bicarbonate (Sodium Bicarbonate) 1,300 mg BIDPC PO Last administered on 05/03/17 08:10; Start 05/01/17 at 09:00 Tacrolimus (Prograf) 5 mg Q12H PO Last administered on 05/03/17 00:05; Start 04/30/17 at 23:00 Insulin Detemir (Levemir Inj) 20 units DAILY SQ ; Start 05/01/17 at 09:00; Status Future Hold Lisinopril (Prinivil) 20 mg DAILY PO ; Start 05/01/17 at 09:00; Status Future Hold Metoprolol Succinate (Toprol Xl) 100 mg DAILY PO Last administered on 08:12; Start 05/01/17 at 09:00 Hydrochlorothiazide (Hydrodiuril) 25 mg DAILY PO Last administered on 08:12; Start 05/01/17 at 09:00 Influenza Virus Vaccine (Flu (Quadrivalent) Vaccine Inj) 0.5 ml ONCE ONCE IM ; Start 05/01/17 at 09:00; Stop 05/01/17 at 09:01; Status DC Sodium Polystyrene Sulfonate (Kayexalate Liq) 15 gm ONCE ONCE PO Last administered on 05/01/17 13:31; Start 05/01/17 at 13:00; Stop 05/01/17 at 13:01 ; Status DC Sodium Polystyrene Sulfonate (Kayexalate Liq) 15 gm ONCE ONCE PO Last administered on 05/02/17 13:45; Start 05/02/17 at 13:45; Stop 05/02/17 at 13:46 ; Status DC Sodium Polystyrene Sulfonate (Kayexalate Liq) 15 gm ONCE ONCE PO Last administered on 05/02/17 20:28; Start 05/02/17 at 20:00; Stop 05/02/17 at 20:01 ; Status DC Ondansetron HCl (Zofran Inj) 4 mg Q6H PRN IV PUSH NAUSEA OR VOMITING; Start at 02:30 A/P Assessment and Plan A/P 1. Seizure activity EEG with no epileptiform activity Unclear if patient had postictal episodes Neurology consult appreciated; no antiepileptics for now. 2. TIA MRI brain with no acute abnormality. MRA head unremarkable. carotid doppler with no significant stenosis. echo with EF 70% and moderate LVH. Neurology follow-up appreciated; recommended outpatient f/u for sleep disorder. 3.CKD with Hyperkalemia- s/p kidney transplant. renal function at his baseline with improved potassium level- potassium level today- continue immunosuppression. 4. Chest pain ACS ruled out. 5. Hypertension Continue multidrug regimen from home Monitor 6. Hyperlipidemia Continue home statin 7. diabetes mellitus hold long acting insulin for now. continue accu-check with SSI Discharge Planning dc home today-pending the potassium level. see med list. f/u; pcp and nephrology. d/w the patient and RN. time spent 35 min. Ameena Cabello MD May 03, 2017 09:24
--- NOTE | 2017-05-03 09:28 | HHI.DS ---
Discharge Summary Admission Date Apr 30, 2017 at 22:40 Discharge Date: May 03, 2017 Admitting Diagnosis TIA, chest pain, hyperkalemia (1) possible seizure Diagnosis: Principal Procedures none Brief History - From Admission 56-year-old male with a past medical history of a renal transplant in 2008 for essential hypertension, hypertension, insulin-dependent diabetes mellitus and hyperlipidemia presents with a 1 day history of left-sided facial droop that spontaneously resolved. Patient reports his noticed his face was drooping on the left side all day yesterday however when he awoke this morning the symptoms had resolved. The patient reports feeling "just not himself". He endorses chest pain 1 week. He states the chest pain is a sharp stabbing left- sided chest pain that spontaneously resolves. He also reports a one-day history of convulsions. The patient states that he wakes up with his whole body convulsing and has no memory of the events. He is unsure if he is just sleeping or if he loses consciousness. He denies loss of bowel/bladder. Head CT showed no acute bleed or infarct. Initial troponin/EKG unremarkable. CBC/BMP: 04/30/17 1930 05/02/17 2359 Significant Findings Laboratory Tests Test 04/30/17 19:30 04/30/17 20:00 05/01/17 11:07 05/01/17 19:32 Red Blood Count 4.04 MIL/MM3 (4.50-5.90) Hemoglobin 9.9 GM/DL (13.0-17.0) Hematocrit 30.9 % (39.0-51.0) Mean Corpuscular Volume 76.5 FL (80.0-100.0) Mean Corpuscular Hemoglobin 24.5 PG (27.0-34.0) Monocytes (%) (Auto) 13.2 % (0.0-8.0) Lymphocytes # (Auto) 0.9 TH/MM3 (1.0-4.8) Blood Urea Nitrogen 71 MG/DL (7-18) 71 MG/DL (7-18) 78 MG/DL (7-18) Creatinine 2.89 MG/DL (0.60-1.30) 2.66 MG/DL (0.60-1.30) 2.85 MG/DL (0.60-1.30) Random Glucose 152 MG/DL (74-106) Calcium Level 8.4 MG/DL (8.5-10.1) 8.4 MG/DL (8.5-10.1) 7.6 MG/DL (8.5-10.1) Potassium Level 6.4 MEQ/L (3.5-5.1) 5.8 MEQ/L (3.5-5.1) 6.4 MEQ/L (3.5-5.1) Chloride Level 110 MEQ/L (98-107) 110 MEQ/L (98-107) 110 MEQ/L (98-107) Carbon Dioxide Level 20.3 MEQ/L (21.0-32.0) 20.2 MEQ/L (21.0-32.0) 16.2 MEQ/L (21.0-32.0) Estimat Glomerular Filtration Rate 28 ML/MIN (>89) 30 ML/MIN (>89) 28 ML/MIN (>89) Urine Protein 100 mg/dL (NEG-TRACE) Hemoglobin A1c 8.4 % (4.3-6.0) Triglycerides Level 156 MG/DL (42-150) HDL Cholesterol 83.1 MG/DL (40.0-60.0) Test 05/02/17 10:25 05/02/17 23:59 Blood Urea Nitrogen 71 MG/DL (7-18) Creatinine 2.66 MG/DL (0.60-1.30) Random Glucose 238 MG/DL (74-106) Calcium Level 8.3 MG/DL (8.5-10.1) Potassium Level 5.5 MEQ/L (3.5-5.1) 5.3 MEQ/L (3.5-5.1) Chloride Level 108 MEQ/L (98-107) Carbon Dioxide Level 20.5 MEQ/L (21.0-32.0) Estimat Glomerular Filtration Rate 30 ML/MIN (>89) Imaging Last Impressions Head Magnetic Resonance Angiography 05/01/17 0000 Signed Impressions: Service Date/Time: Monday, May 01, 2017 07:38 - CONCLUSION: 1. Unremarkable MRA examination without evidence for large vessel occlusion, aneurysm or vascular malformation. Blake Leggett MD Carotid Artery Ultrasound 05/01/17 0000 Signed Impressions: Service Date/Time: Monday, May 01, 2017 13:40 - CONCLUSION: Bilateral carotid bifurcation atherosclerotic plaque, mild on the right and minimal on the left. No hemodynamically significant narrowing. Drew Hoff MD Brain MRI 05/01/17 0000 Signed Impressions: Service Date/Time: Monday, May 01, 2017 07:38 - CONCLUSION: 1. Mild small vessel periventricular and deep white matter ischemic demyelination. 2. Otherwise, unremarkable MRI examination of the brain. Blake Leggett MD Chest X-Ray 04/30/17 1842 Signed Impressions: Service Date/Time: Sunday, April 30, 2017 19:17 - CONCLUSION: Normal examination. Aurelio Lema MD Head CT 04/30/17 0000 Signed Impressions: Service Date/Time: Sunday, April 30, 2017 19:36 - CONCLUSION: Normal examination. Aurelio Lema MD PE at Discharge GENERAL: This is a well-nourished, well-developed patient, in no apparent distress. CARDIOVASCULAR: Regular rate and regular rhythm without murmurs, gallops, or rubs. RESPIRATORY: Clear to auscultation. Breath sounds equal bilaterally. No wheezes , rales, or rhonchi. GASTROINTESTINAL: Abdomen soft, non-tender, nondistended. Normal, active bowel sounds MUSCULOSKELETAL: Extremities without clubbing, cyanosis, or edema. NEURO: Alert & Oriented x4 to person, place, time, situation. Moves all ext x4 Hospital Course 1. Seizure activity EEG with no epileptiform activity Unclear if patient had postictal episodes Neurology consult appreciated; no antiepileptics for now. 2. TIA MRI brain with no acute abnormality. MRA head unremarkable. carotid doppler with no significant stenosis. echo with EF 70% and moderate LVH. Neurology follow-up appreciated; recommended outpatient f/u for sleep disorder. 3.CKD with Hyperkalemia- s/p kidney transplant. renal function at his baseline with improved potassium level- potassium level today- continue immunosuppression. 4. Chest pain ACS ruled out. 5. Hypertension Continue multidrug regimen from home Monitor 6. Hyperlipidemia Continue home statin 7. diabetes mellitus hold long acting insulin for now. continue accu-check with SSI Pt Condition on Discharge: Fair Discharge Disposition: Discharge Home Discharge Time: > 30 minutes Discharge Instructions DIET: Follow Instructions for: Diabetic Diet, Renal Failure Diet Activities you can perform: Regular-No Restrictions Follow up Referrals: Nephrology PCP Follow-up Continued Medications: Amlodipine (Amlodipine) 10 Mg Tab 10 MG PO DAILY for Blood Pressure Management, #31 TAB 3 Refills Atorvastatin (Atorvastatin) 40 Mg Tab 40 MG PO EVERY OTHER DAY for Cholesterol Management, #30 TAB 3 Refills B-Complex W/ C & Folic Acid (Nephrocaps) 1 Cap 1 CAP PO DAILY for Nutritional Supplement, #30 CAP 0 Refills If on dialysis, take after treatment. Baclofen (Baclofen) 10 Mg Tab 10 MG PO Q8HR PRN for MUSCLE SPASM for 7 Days, TAB 0 Refills Cholecalciferol (Vitamin D) 400 Unit/Ml Drops 400 UNITS PO DAILY, #1 BOTTLE Fluticasone Nasal [place] (Fluticasone Nasal [place]) 50 Mcg/Act Naspr 50 MCG EACH NARE BID for Allergy Management, #1 BOTTLE 0 Refills 50 mcg/spray Furosemide (Lasix) 40 Mg Tab 40 MG PO BID, #60 TAB 0 Refills Hydralazine (Hydralazine) 100 Mg Tab 25 MG PO TID for Blood Pressure Management, #90 TAB 3 Refills Take with meals Insulin Glargine Inj (Lantus Solostar Pen Inj) 300 Unit/3 Ml Pen 20 UNITS SQ DAILY for Blood Sugar Management, PEN 0 Refills Insulin Lispro (Human) Inj (Humalog Kwikpen Pen Inj) 300 Unit/3 Ml Pen 0 SQ ACHS for Blood Sugar Management, PEN 0 Refills Levothyroxine (Levothyroxine) 25 Mcg Tab 25 MCG PO DAILY for Thyroid, #30 TAB 3 Refills Lisinopril-Hctz (Lisinopril-Hctz) 20-25 Mg Tab 1 TAB PO DAILY for Blood Pressure Management, #30 TAB 3 Refills Magnesium Gluconate (Magnesium Gluconate) 500 Mg Tab 500 MG PO DAILY for Nutritional Supplement, TAB 0 Refills Metoprolol Succinate ER 24 HR (Metoprolol Succinate ER 24 HR) 100 Mg Tab 100 MG PO DAILY, #30 TAB 3 Refills Mycophenolate (Mycophenolate) 500 Mg Tab 500 MG PO BID for Immunosuppression, #120 TAB 0 Refills Ondansetron (Zofran) 4 Mg Tab 4 MG PO Q12HR PRN for NAUSEA OR VOMITING, #30 TAB 0 Refills Pantoprazole (Protonix) 20 Mg Tab 20 MG PO DAILY PRN for REFLUX, #30 TAB 3 Refills Prednisone (Deltasone) 20 Mg Tab 10 MG PO DAILY, #60 TAB 0 Refills Sodium Bicarbonate (Sodium Bicarbonate) 650 Mg Tab 1300 MG PO BIDPC, #60 TAB 0 Refills Tacrolimus (Tacrolimus) 5 Mg Cap 5 MG PO Q12H for Prevent Transplant Reject, #60 CAP 0 Refills Ameena Cabello MD May 03, 2017 09:28
[2017-05-03] MEDS ORDERED: SODIUM POLYSTYRENE SULFONATE SUSP 15 GM/60 ML CUP PO ONE ×2 (15:30→19:30)
[2017-05-03] MEDS ORDERED: DEXTROSE 50% IN WATER 50 ML VIAL(D50) IV PUSH ONE (15:30)
[2017-05-03] MEDS ORDERED: INSULIN HUMAN REGULAR 1,000 UNITS/10 ML VIAL IV PUSH ONE (15:30)
[2017-05-03] MEDS ORDERED: SODIUM BICARBONATE 650 MG TAB PO ONE (19:15)
--- NOTE | 2017-05-03 19:29 | PD.CONS ---
HPI Service Nephrology Consult Requested By Dr. Cabello Reason for Consult Kidney transplant with hyperkalemia Primary Care Physician Unknown History of Present Illness Patient is a 56-year-old male with history of kidney transplant in 2008 he has chronic rejection he was admitted because of concerns with the facial droop and possible CVA, his MRI appeared to show no acute stroke but has chronic changes, he was taken off the lisinopril but despite that his hyperkalemia persists and he stated that he has no bowel movement from the Kayexalate received earlier, patient also is on normal potassium foods and has no limitations, he states that he has tomato sauce and spaghetti sauce. Review of Systems Constitutional: COMPLAINS OF: Fatigue Eyes: DENIES: Blurred vision, Diplopia, Eye inflammation, Eye pain, Vision loss , Photosensitivity, Double Vision Ears, nose, mouth, throat: DENIES: Tinnitus, Hearing loss, Vertigo, Nasal discharge, Oral lesions, Throat pain, Hoarseness, Ear Pain, Running Nose, Epistaxis, Sinus Pain, Toothache, Odynophagia Respiratory: DENIES: Apneas, Cough, Snoring, Wheezing, Hemoptysis, Sputum production, Shortness of breath Cardiovascular: DENIES: Chest pain, Palpitations, Syncope, Dyspnea on Exertion , PND, Lower Extremity Edema, Orthopnea, Claudication Gastrointestinal: DENIES: Abdominal pain, Black stools, Bloody stools, Constipation, Diarrhea, Nausea, Vomiting, Difficulty Swallowing, Anorexia Musculoskeletal: COMPLAINS OF: Joint pain Integumentary: DENIES: Abnormal pigmentation, Nail changes, Pruritus, Rash Hematologic/lymphatic: DENIES: Bruising, Lymphadenopathy Psychiatric: COMPLAINS OF: Anxiety Past Family Social History Allergies: Coded Allergies: banana (Unverified Allergy, Severe, HIVES, 04/30/17) beet (Unverified Allergy, Severe, HIVES, 04/30/17) latex (Unverified Allergy, Severe, Hives and rash, 04/30/17) peas (Unverified Allergy, Severe, HIVES, 04/30/17) Uncoded Allergies: FRESH TOMATO (Allergy, Severe, 12/04/16) HIVES CAN HAVE KETCHUP Past Medical History Hypertension Diabetes Kidney transplant Chronic rejection ESRD history of dialysis Past Surgical History Kidney biopsy Kidney transplant 2008 AV fistula Hernia repair ACL repair Reported Medications Reported Meds & Active Scripts Active Lasix (Furosemide) 40 Mg Tab 40 Mg PO BID Protonix (Pantoprazole Sodium) 20 Mg Tab 20 Mg PO DAILY PRN Hydralazine (Hydralazine HCl) 100 Mg Tab 25 Mg PO TID Take with meals Lisinopril-Hctz 20-25 Mg Tab 1 Tab PO DAILY Metoprolol Succinate ER 24 HR (Metoprolol Succinate) 100 Mg Tab 100 Mg PO DAILY Levothyroxine (Levothyroxine Sodium) 25 Mcg Tab 25 Mcg PO DAILY Amlodipine (Amlodipine Besylate) 10 Mg Tab 10 Mg PO DAILY Atorvastatin (Atorvastatin Calcium) 40 Mg Tab 40 Mg PO EVERY OTHER DAY Tacrolimus 5 Mg Cap 5 Mg PO Q12H Zofran (Ondansetron HCl) 4 Mg Tab 4 Mg PO Q12HR PRN Baclofen 10 Mg Tab 10 Mg PO Q8HR PRN 7 Days Reported Humalog Kwikpen Pen Inj (Insulin Lispro (Human) Inj) 300 Unit/3 Ml Pen 0 SQ ACHS Lantus Solostar Pen Inj (Insulin Glargine) 300 Unit/3 Ml Pen 20 Units SQ DAILY Fluticasone Nasal [place] 50 Mcg/Act Naspr 50 Mcg EACH NARE BID 50 mcg/spray Vitamin D (Cholecalciferol) 400 Unit/Ml Drops 400 Units PO DAILY Magnesium Gluconate 500 Mg Tab 500 Mg PO DAILY Sodium Bicarbonate 650 Mg Tab 1,300 Mg PO BIDPC Mycophenolate (Mycophenolate Mofetil) 500 Mg Tab 500 Mg PO BID Deltasone (Prednisone) 20 Mg Tab 10 Mg PO DAILY Nephrocaps (B-Complex W/ C & Folic Acid) 1 Cap 1 Cap PO DAILY If on dialysis, take after treatment. Active Ordered Medications Current Medications Medications (Trade) Dose Ordered Sig/Yasmany Route Start Time Stop Time Status Last Admin (NS Flush) 2 ml BID IV FLUSH 05/01/17 09:00 05/03/17 08:13 (NS Flush) 2 ml UNSCH PRN IV FLUSH 04/30/17 21:45 (Aspirin) 325 mg DAILY PO 05/01/17 09:00 (NovoLOG SUPPLEMENTAL SCALE) 1 ACHS SQ 05/01/17 08:00 05/03/17 17:31 (D50w (Syr) Inj) 50 ml UNSCH PRN IV PUSH 04/30/17 21:45 (Glucagon Inj) 1 mg UNSCH PRN OTHER 04/30/17 21:45 (Tylenol) 500 mg Q4H PRN PO 04/30/17 22:00 05/03/17 12:08 (Norvasc) 10 mg DAILY PO 05/01/17 09:00 05/03/17 08:12 (Lipitor) 40 mg EVERY OTHER DAY PO 05/02/17 09:00 05/02/17 08:53 (Lasix) 40 mg BID@0900,1800 PO 05/01/17 09:00 05/03/17 17:30 (Apresoline) 25 mg TID PO 05/01/17 09:00 05/03/17 17:29 (Synthroid) 25 mcg DAILY@0600 PO 05/01/17 09:00 05/03/17 05:49 (Cellcept) 500 mg BID@0600,1800 PO 05/01/17 06:00 05/03/17 17:30 (Protonix) 20 mg DAILY PRN PO 04/30/17 22:45 05/03/17 00:58 (Deltasone) 10 mg DAILY PO 05/01/17 09:00 05/03/17 08:12 (Sodium Bicarbonate) 1,300 mg BIDPC PO 05/01/17 09:00 05/03/17 17:29 (Prograf) 5 mg Q12H PO 04/30/17 23:00 05/03/17 11:35 (Levemir Inj) 20 units DAILY SQ 05/01/17 09:00 Future Hold (Prinivil) 20 mg DAILY PO 05/01/17 09:00 Future Hold (Toprol Xl) 100 mg DAILY PO 05/01/17 09:00 05/03/17 08:12 (Hydrodiuril) 25 mg DAILY PO 05/01/17 09:00 05/03/17 08:12 (Zofran Inj) 4 mg Q6H PRN IV PUSH 05/03/17 02:30 Family History Noncontributory Social History Denies smoking or alcohol use Physical Exam Vital Signs Vital Signs Date Time Temp Pulse Resp B/P (MAP) Pulse Ox O2 Delivery O2 Flow Rate FiO2 05/03/17 16:03 98.6 73 18 168/93 (118) 97 05/03/17 12:03 98.1 70 18 154/94 (114) 99 05/03/17 08:03 97.3 67 18 139/79 (99) 97 05/03/17 08:00 68 05/03/17 08:00 Room Air 05/03/17 04:00 97.7 66 20 173/77 (109) 97 05/03/17 00:00 97.9 71 17 150/71 (97) 95 05/02/17 20:50 66 05/02/17 20:30 Room Air 05/02/17 20:00 97.9 68 17 151/84 (106) 96 05/02/17 20:00 Room Air Physical Exam GENERAL: Well-nourished, well-developed patient. SKIN: Warm and dry. HEAD: Normocephalic. EYES: No scleral icterus. No injection or drainage. NECK: Supple, trachea midline. No JVD or lymphadenopathy. CARDIOVASCULAR: Regular rate and rhythm without murmurs, gallops, or rubs. RESPIRATORY: Breath sounds equal bilaterally. No accessory muscle use. GASTROINTESTINAL: Abdomen soft, non-tender, nondistended. EXTREMITIES: No cyanosis, or edema. NEUROLOGICAL: Awake, alert, and oriented x 3. Non-focal. Laboratory Laboratory Tests Test 05/02/17 23:59 05/03/17 13:57 Potassium Level 5.3 6.0 Result Diagram: 04/30/17 1930 05/03/17 1357 Imaging Last Impressions Head Magnetic Resonance Angiography 05/01/17 0000 Signed Impressions: Service Date/Time: Monday, May 01, 2017 07:38 - CONCLUSION: 1. Unremarkable MRA examination without evidence for large vessel occlusion, aneurysm or vascular malformation. Blake Leggett MD Carotid Artery Ultrasound 05/01/17 0000 Signed Impressions: Service Date/Time: Monday, May 01, 2017 13:40 - CONCLUSION: Bilateral carotid bifurcation atherosclerotic plaque, mild on the right and minimal on the left. No hemodynamically significant narrowing. Drew Hoff MD Brain MRI 05/01/17 0000 Signed Impressions: Service Date/Time: Monday, May 01, 2017 07:38 - CONCLUSION: 1. Mild small vessel periventricular and deep white matter ischemic demyelination. 2. Otherwise, unremarkable MRI examination of the brain. Blake Leggett MD Chest X-Ray 04/30/17 7632 Signed Impressions: Service Date/Time: Sunday, April 30, 2017 19:17 - CONCLUSION: Normal examination. Aurelio Lema MD Head CT 04/30/17 0000 Signed Impressions: Service Date/Time: Sunday, April 30, 2017 19:36 - CONCLUSION: Normal examination. Aurelio Lema MD Assessment and Plan Problem List: (1) Renal transplant recipient ICD Codes: Z94.0 - Kidney transplant status Status: Chronic Plan: Patient is maintained on Prograf 5 mg twice a day, prednisone and CellCept Check tacrolimus level Monitor BMP (2) Hyperkalemia ICD Codes: E87.5 - Hyperkalemia Status: Acute Plan: Patient has persistent hyperkalemia given him a dose of Kayexalate (3) TIA (transient ischemic attack) ICD Codes: G45.9 - Transient cerebral ischemic attack, unspecified Status: Acute Plan: Resolved (4) Hypertension ICD Codes: I10 - Hypertension Status: Chronic Plan: Monitor blood pressure he is on hydralazine and the lisinopril was discontinued due to hyperkalemia (5) Diabetes mellitus ICD Codes: E11.9 - Type 2 diabetes mellitus without complications Status: Chronic Plan: Continue to monitor. Denies having hypoglycemia Problem Qualifiers (1) TIA (transient ischemic attack): Qualified Codes: G45.9 - Transient cerebral ischemic attack, unspecified (2) Hypertension: Qualified Codes: I10 - Essential (primary) hypertension Chito Pereira MD May 03, 2017 19:29
[2017-05-04] VITALS: BP 138/80; PULSE 70; RESP 18; TEMP 98.8; O2SAT 95
[2017-05-04 04:00] VITALS: BP 133/78; PULSE 68; RESP 18; TEMP 98.4; O2SAT 95
[2017-05-04] MEDS: LEVOTHYROXINE SODIUM 25 MCG TAB PO SCH (05:52)
[2017-05-04] MEDS: MYCOPHENOLATE MOFETIL 500 MG TAB PO SCH (05:52)
[2017-05-04] MEDS: ACETAMINOPHEN 500 MG CPLT PO PRN ×2 (05:54→14:20)
[2017-05-04 08:00] VITALS: BP 142/82; PULSE 63; PULSE 67; RESP 18; TEMP 98; O2SAT 98
[2017-05-04] MEDS: hydrALAZINE HCL 25 MG TAB PO SCH ×2 (08:28→12:18)
[2017-05-04] MEDS: predniSONE 10 MG TAB PO SCH (08:28)
[2017-05-04] MEDS: METOPROLOL SUCCINATE 50 MG EXTENDED RELEASE TAB PO SCH (08:28)
[2017-05-04] MEDS: ATORVASTATIN 40 MG TAB PO SCH (08:29)
[2017-05-04] MEDS: HYDROCHLOROTHIAZIDE 25 MG TAB PO SCH (08:29)
[2017-05-04] MEDS: SODIUM BICARBONATE 650 MG TAB PO SCH (08:29)
[2017-05-04] MEDS: ASPIRIN 325 MG TAB PO SCH (08:30)
[2017-05-04] MEDS: INSULIN ASPART SUPPLEMENTAL SCALE SQ SCH ×2 (08:30→12:18)
[2017-05-04] MEDS: SODIUM CHLORIDE 0.9% FLUSH 5 ML FLUSH IV FLUSH SCH (08:30)
[2017-05-04] MEDS: FUROSEMIDE 40 MG TAB PO SCH (08:32)
--- NOTE | 2017-05-04 09:44 | HHI.PR ---
Subjective Remarks in no distress. has slight headache. otherwise no other complaints. Objective Vitals Vital Signs Date Time Temp Pulse Resp B/P (MAP) Pulse Ox O2 Delivery O2 Flow Rate FiO2 05/04/17 04:00 Room Air 05/04/17 04:00 98.4 68 18 133/78 (96) 95 05/04/17 00:00 Room Air 05/04/17 00:00 98.8 70 18 138/80 (99) 95 05/03/17 20:00 84 05/03/17 20:00 98.9 77 18 146/89 (108) 96 05/03/17 20:00 Room Air 05/03/17 16:03 98.6 73 18 168/93 (118) 97 05/03/17 12:03 98.1 70 18 154/94 (114) 99 I/O 05/03/17 05/03/17 05/03/17 05/04/17 05/04/17 05/04/17 07:00 15:00 23:00 07:00 15:00 23:00 Intake Total 240 ml 520 ml 720 ml Balance 240 ml 520 ml 720 ml Intake Oral 240 ml 520 ml 720 ml # Voids 1 6 6 # Bowel Movements 1 1 6 Result Diagram: 04/30/17 1930 05/03/17 1357 Imaging Last Impressions Head Magnetic Resonance Angiography 05/01/17 0000 Signed Impressions: Service Date/Time: Monday, May 01, 2017 07:38 - CONCLUSION: 1. Unremarkable MRA examination without evidence for large vessel occlusion, aneurysm or vascular malformation. Blake Leggtet MD Carotid Artery Ultrasound 05/01/17 0000 Signed Impressions: Service Date/Time: Monday, May 01, 2017 13:40 - CONCLUSION: Bilateral carotid bifurcation atherosclerotic plaque, mild on the right and minimal on the left. No hemodynamically significant narrowing. Drew Hoff MD Brain MRI 05/01/17 0000 Signed Impressions: Service Date/Time: Monday, May 01, 2017 07:38 - CONCLUSION: 1. Mild small vessel periventricular and deep white matter ischemic demyelination. 2. Otherwise, unremarkable MRI examination of the brain. Blake Leggett MD Chest X-Ray 04/30/17 6042 Signed Impressions: Service Date/Time: Sunday, April 30, 2017 19:17 - CONCLUSION: Normal examination. Aurelio A. Sevigny, MD Head CT 04/30/17 0000 Signed Impressions: Service Date/Time: Sunday, April 30, 2017 19:36 - CONCLUSION: Normal examination. Aurelio Lema MD Objective Remarks GENERAL: This is a well-nourished, well-developed patient, in no apparent distress. CARDIOVASCULAR: Regular rate and regular rhythm without murmurs, gallops, or rubs. RESPIRATORY: Clear to auscultation. Breath sounds equal bilaterally. No wheezes , rales, or rhonchi. GASTROINTESTINAL: Abdomen soft, non-tender, nondistended. Normal, active bowel sounds MUSCULOSKELETAL: Extremities without clubbing, cyanosis, or edema. NEURO: Alert & Oriented x4 to person, place, time, situation. Moves all ext x4 Procedures none Medications and IVs Current Medications Ondansetron HCl (Zofran Inj) 4 mg ONCE ONCE IVP Last administered on 19:51; Start 04/30/17 at 19:15; Stop 04/30/17 at 19:16; Status DC Sodium Chloride (NS Flush) 2 ml UNSCH PRN IVF FLUSH AFTER USING IV ACCESS; Start 04/30/17 at 19:15; Stop 05/01/17 at 02:13; Status DC Calcium Gluconate (Calcium Gluconate Inj) 1 gm ONCE ONCE SLOW IVP Last administered on 04/30/17 21:14; Start 04/30/17 at 20:45; Stop 04/30/17 at 20:46 ; Status DC Insulin Human Regular (NovoLIN R INJ) 10 units ONCE ONCE IV PUSH Last administered on 04/30/17 21:10; Start 04/30/17 at 20:45; Stop 04/30/17 at 20:46 ; Status DC Dextrose (D50w (Vial) Inj) 50 ml ONCE ONCE IV PUSH Last administered on 21:09; Start 04/30/17 at 20:45; Stop 04/30/17 at 20:46; Status DC Sodium Bicarbonate (Sodium Bicarbonate 8.4% Inj) 50 meq ONCE ONCE SLOW IVP Last administered on 04/30/17 22:14; Start 04/30/17 at 20:45; Stop 04/30/17 at 20:46; Status DC Aspirin (Aspirin Chew) 162 mg ONCE ONCE CHEW Last administered on 04/30/17 22 :16; Start 04/30/17 at 21:30; Stop 04/30/17 at 21:31; Status DC IV Flush (NS Flush) 2 ml BID IV FLUSH Last administered on 05/04/17 08:30; Start 05/01/17 at 09:00 IV Flush (NS Flush) 2 ml UNSCH PRN IV FLUSH FLUSH AFTER USING IV ACCESS; Start 04/30/17 at 21:45 Aspirin (Aspirin) 325 mg DAILY PO ; Start 05/01/17 at 09:00 Insulin Aspart (NovoLOG SUPPLEMENTAL SCALE) 1 ACHS SQ Last administered on 05/04 08:30; Start 05/01/17 at 08:00 Dextrose (D50w (Syr) Inj) 50 ml UNSCH PRN IV PUSH HYPOGLYCEMIA-SEE COMMENTS; Start 04/30/17 at 21:45 Glucagon (Glucagon Inj) 1 mg UNSCH PRN OTHER HYPOGLYCEMIA-SEE COMMENTS; Start 04/30/17 at 21:45 Acetaminophen (Tylenol) 500 mg Q4H PRN PO HEADACHE Last administered on 05:54; Start 04/30/17 at 22:00 Amlodipine Besylate (Norvasc) 10 mg DAILY PO Last administered on 05/04/17 08: 29; Start 05/01/17 at 09:00 Atorvastatin Calcium (Lipitor) 40 mg EVERY OTHER DAY PO Last administered on 05/04/17 08:29; Start 05/02/17 at 09:00 Furosemide (Lasix) 40 mg BID@0900,1800 PO Last administered on 05/03/17 17:30 ; Start 05/01/17 at 09:00 Hydralazine HCl (Apresoline) 25 mg TID PO Last administered on 05/04/17 08:28 ; Start 05/01/17 at 09:00 Levothyroxine Sodium (Synthroid) 25 mcg DAILY@0600 PO Last administered on 05/04 05:52; Start 05/01/17 at 09:00 Mycophenolate Mofetil (Cellcept) 500 mg BID@0600,1800 PO Last administered on 05/04/17 05:52; Start 05/01/17 at 06:00 Pantoprazole Sodium (Protonix) 20 mg DAILY PRN PO REFLUX Last administered on 05/03/17 00:58; Start 04/30/17 at 22:45 Prednisone (Deltasone) 10 mg DAILY PO Last administered on 05/04/17 08:28; Start 05/01/17 at 09:00 Sodium Bicarbonate (Sodium Bicarbonate) 1,300 mg BIDPC PO Last administered on 05/04/17 08:29; Start 05/01/17 at 09:00 Tacrolimus (Prograf) 5 mg Q12H PO Last administered on 05/03/17 22:27; Start 04/30/17 at 23:00 Insulin Detemir (Levemir Inj) 20 units DAILY SQ ; Start 05/01/17 at 09:00; Status Future Hold Lisinopril (Prinivil) 20 mg DAILY PO ; Start 05/01/17 at 09:00; Status Future Hold Metoprolol Succinate (Toprol Xl) 100 mg DAILY PO Last administered on 08:28; Start 05/01/17 at 09:00 Hydrochlorothiazide (Hydrodiuril) 25 mg DAILY PO Last administered on 08:29; Start 05/01/17 at 09:00 Influenza Virus Vaccine (Flu (Quadrivalent) Vaccine Inj) 0.5 ml ONCE ONCE IM ; Start 05/01/17 at 09:00; Stop 05/01/17 at 09:01; Status DC Sodium Polystyrene Sulfonate (Kayexalate Liq) 15 gm ONCE ONCE PO Last administered on 05/01/17 13:31; Start 05/01/17 at 13:00; Stop 05/01/17 at 13:01 ; Status DC Sodium Polystyrene Sulfonate (Kayexalate Liq) 15 gm ONCE ONCE PO Last administered on 05/02/17 13:45; Start 05/02/17 at 13:45; Stop 05/02/17 at 13:46 ; Status DC Sodium Polystyrene Sulfonate (Kayexalate Liq) 15 gm ONCE ONCE PO Last administered on 05/02/17 20:28; Start 05/02/17 at 20:00; Stop 05/02/17 at 20:01 ; Status DC Ondansetron HCl (Zofran Inj) 4 mg Q6H PRN IV PUSH NAUSEA OR VOMITING; Start at 02:30 Dextrose (D50w (Vial) Inj) 25 ml ONCE ONCE IV PUSH Last administered on 16:43; Start 05/03/17 at 15:30; Stop 05/03/17 at 16:32; Status DC Insulin Human Regular (NovoLIN R INJ) 5 units ONCE ONCE IV PUSH Last administered on 05/03/17 16:43; Start 05/03/17 at 15:30; Stop 05/03/17 at 16:32 ; Status DC Sodium Polystyrene Sulfonate (Kayexalate Liq) 15 gm ONCE ONCE PO Last administered on 05/03/17 16:43; Start 05/03/17 at 15:30; Stop 05/03/17 at 16:32 ; Status DC Sodium Bicarbonate (Sodium Bicarbonate) 650 mg ONCE ONCE PO ; Start 05/03/17 at 19:15; Stop 05/03/17 at 19:26; Status DC Sodium Polystyrene Sulfonate (Kayexalate Liq) 15 gm ONCE ONCE PO ; Start at 19:30; Stop 05/03/17 at 19:31; Status DC A/P Problem List: (1) possible seizure Assessment and Plan A/P 1. Seizure activity EEG with no epileptiform activity Neurology consult appreciated; no antiepileptics for now. 2. possible TIA MRI brain with no acute abnormality. MRA head unremarkable. carotid doppler with no significant stenosis. echo with EF 70% and moderate LVH. Neurology follow-up appreciated; recommended outpatient f/u for sleep disorder. 3.CKD with persistent Hyperkalemia- s/p kidney transplant. renal function at his baseline l- potassium level today pending. nephrology consult appreciated. continue immunosuppression. 4. Chest pain ACS ruled out. 5. Hypertension Continue multidrug regimen from home Monitor 6. Hyperlipidemia Continue home statin 7. diabetes mellitus hold long acting insulin for now. continue accu-check with SSI Discharge Planning dc home within the next 24 hrs-pending the potassium level. see med list. f/u; pcp and nephrology. d/w the patient. time spent 35 min. Ameena Cabello MD May 04, 2017 09:44
[2017-05-04 12:00] VITALS: BP 143/87; PULSE 68; RESP 18; TEMP 97.7; O2SAT 99
[2017-05-04] MEDS: TACROLIMUS 5 MG CAP PO SCH (12:18)
--- NOTE | 2017-05-04 12:21 | HHI.NPPN ---
Subjective History of Present Illness Hx of kidney transplant 2008 Additional Remarks upset about diet Objective Data Data Vital Signs Date Time Temp Pulse Resp B/P (MAP) Pulse Ox O2 Delivery O2 Flow Rate FiO2 05/04/17 08:00 98.0 63 18 142/82 (102) 98 05/04/17 08:00 67 05/04/17 04:00 Room Air 05/04/17 04:00 98.4 68 18 133/78 (96) 95 05/04/17 00:00 Room Air 05/04/17 00:00 98.8 70 18 138/80 (99) 95 05/03/17 20:00 84 05/03/17 20:00 98.9 77 18 146/89 (108) 96 05/03/17 20:00 Room Air 05/03/17 16:03 98.6 73 18 168/93 (118) 97 -: 04/30/17 1930 05/03/17 1357 Physical Exam General Appearance: Well Developed, Well Nourished Throat Throat Exam: Oral Mucosa [place] & Moist Neck Neck Exam: Neck Supple Pulmonary Resp Exam: Clear Bilaterally, Breath Sounds Equal Cardiology CV Exam: Regular, Normal Sinus Rhythm Gastrointestinal/Abdomen GI Exam: Soft, Non-Tender, Bowel Sounds Present Extremeties Extremities Exam: No Edema Assessment/Plan Problem List: (1) Renal transplant recipient ICD Codes: Z94.0 - Kidney transplant status Status: Chronic Plan: Patient is maintained on Prograf 5 mg twice a day, prednisone and CellCept he refused blood work today I order repeat k discussed diet in detail again he was on high K Diet, told him he has CKD and cannot eat high K foods comply with diet (2) Hyperkalemia ICD Codes: E87.5 - Hyperkalemia Status: Acute Plan: Patient has persistent hyperkalemia due to dietary issues given of Kayexalate repeat K pending (3) TIA (transient ischemic attack) ICD Codes: G45.9 - Transient cerebral ischemic attack, unspecified Status: Acute Plan: Resolved (4) Hypertension ICD Codes: I10 - Hypertension Status: Chronic Plan: Monitor blood pressure he is on hydralazine and the lisinopril was discontinued due to hyperkalemia (5) Diabetes mellitus ICD Codes: E11.9 - Type 2 diabetes mellitus without complications Status: Chronic Plan: Continue to monitor. Denies having hypoglycemia Problem Qualifiers (1) TIA (transient ischemic attack): Qualified Codes: G45.9 - Transient cerebral ischemic attack, unspecified (2) Hypertension: Qualified Codes: I10 - Essential (primary) hypertension Chito Pereira MD May 04, 2017 12:21
== END 2017-05-04 16:16 | disposition home or self-care (01) | DRG 101 ==
LOC: NEPC 18:31 → NEDA 20:47 → OBSVTOIN 22:40 → N04B 05-01 01:32
PROVIDERS: ADMIT Internal Medicine; ATTEND Internal Medicine
DX: R56.9 Unspecified convulsions (principal); E11.22 Type 2 diabetes mellitus with diabetic chronic kidney disease; G45.9 Transient cerebral ischemic attack, unspecified; Z94.0 Kidney transplant status; Z79.4 Long term (current) use of insulin; R29.810 Facial weakness; E87.5 Hyperkalemia; I12.9 Hypertensive chronic kidney disease with stage 1 through stage 4 chronic kidney disease, or unspecified chronic kidney disease; N18.9 Chronic kidney disease, unspecified; R07.9 Chest pain, unspecified; R06.83 Snoring; E07.9 Disorder of thyroid, unspecified; Z79.52 Long term (current) use of systemic steroids
CPT/HCPCS: 70450; 70544; 70551; 71010; 76937; 80048; 80061; 81001; 82550; 82552; 82948; 83036; 83735; 84132; 84484; 85025; 85610; 85730; 93005; 93306; 93880; 95819; 96374; J0610; J1815; J2405; J7507; J7512; J7517

== ENCOUNTER 2017-05-21 09:30 | Emergency (ER) | payer OTHER, MEDICAID ==
[~2017-05-21] VITALS: Ht 180.3 cm; Wt 70.0 kg
[~2017-05-21 09:30] MED LIST changes: -HYDR-3533 PO
[2017-05-21 09:31] VITALS: BP 177/102; PULSE 80; RESP 14; TEMP 98.2; O2SAT 98
[2017-05-21] MEDS ORDERED: AUGM875T3 PO (10:29)
--- NOTE | 2017-05-21 10:33 | PD ---
HPI . Dentalgia Chief Complaint: Oral / Dental Pain or Problem Time Seen by Provider: 10:00 Travel History International Travel<30 days: No Contact w/Intl Traveler<30days: No Traveled to known affect area: No History of Present Illness HPI 56-year-old male patient presents emergency department for evaluation of dentalgia on the left upper side of mouth. Patient states the pain started yesterday. Patient denies any fever, chills, malaise, chest pain, shortness breath, abdominal pain, nausea, vomiting, diarrhea. Patient denies any jaw pain or difficulty swallowing. PFSH Past Medical History Hx Anticoagulant Therapy: No Asthma: No Blood Disorders: No Anxiety: No Depression: No Heart Rhythm Problems: No Cancer: No Cardiac Catheterization: No Cardiovascular Problems: Yes High Cholesterol: Yes Chemotherapy: No Chest Pain: No Congestive Heart Failure: Yes (2007) COPD: No Cerebrovascular Accident: No Diabetes: Yes Patient Takes Glucophage: No Diminished Hearing: No Endocrine: Yes Gastrointestinal Disorders: Yes (GERD) GERD: No Genitourinary: No Hepatitis: No Hiatal Hernia: No Hypertension: Yes Immune Disorder: No Kidney Stones: No Musculoskeletal: No Neurologic: No Psychiatric: No Reproductive: No Respiratory: No Immunizations Current: No Radiation Therapy: No Renal Failure: Yes (KIDNEY TRANSPLANT) Sleep Apnea: No Thyroid Disease: Yes Ulcer: No Past Surgical History Abdominal Surgery: Yes (ABD AND INGUINAL HERNIA REPAIR) AICD: No Body Medical Devices: KIDNEY TRANPLANT R Cardiac Surgery: No Coronary Artery Bypass Graft: No Ear Surgery: No Eye Surgery: No Genitourinary Surgery: Yes (R KIDNEY TRANSPLANT 2008) Gynecologic Surgery: No Joint Replacement: No Oral Surgery: No Pacemaker: No Thoracic Surgery: No Other Surgery: Yes (fistula, ACL, hernia, kidney transplant 2008) Family History Family Myocardial Infarction: Yes (dad [place] 1994) Social History Alcohol Use: No Tobacco Use: No Substance Use: No Allergies-Medications (Allergen,Severity, Reaction): Coded Allergies: banana (Unverified Allergy, Severe, HIVES, 04/30/17) beet (Unverified Allergy, Severe, HIVES, 04/30/17) latex (Unverified Allergy, Severe, Hives and rash, 04/30/17) peas (Unverified Allergy, Severe, HIVES, 04/30/17) Uncoded Allergies: FRESH TOMATO (Allergy, Severe, 12/04/16) HIVES CAN HAVE KETCHUP Reported Meds & Prescriptions Reported Meds & Active Scripts Active Augmentin (Amoxicillin-Clavulanate) 875-125 Mg Tab 1 Tab PO BID 7 Days Lasix (Furosemide) 40 Mg Tab 40 Mg PO BID Protonix (Pantoprazole Sodium) 20 Mg Tab 20 Mg PO DAILY PRN Hydralazine (Hydralazine HCl) 100 Mg Tab 25 Mg PO TID Take with meals Lisinopril-Hctz 20-25 Mg Tab 1 Tab PO DAILY Metoprolol Succinate ER 24 HR (Metoprolol Succinate) 100 Mg Tab 100 Mg PO DAILY Levothyroxine (Levothyroxine Sodium) 25 Mcg Tab 25 Mcg PO DAILY Amlodipine (Amlodipine Besylate) 10 Mg Tab 10 Mg PO DAILY Atorvastatin (Atorvastatin Calcium) 40 Mg Tab 40 Mg PO EVERY OTHER DAY Tacrolimus 5 Mg Cap 5 Mg PO Q12H Zofran (Ondansetron HCl) 4 Mg Tab 4 Mg PO Q12HR PRN Baclofen 10 Mg Tab 10 Mg PO Q8HR PRN 7 Days Reported Humalog Kwikpen Pen Inj (Insulin Lispro (Human) Inj) 300 Unit/3 Ml Pen 0 SQ ACHS Lantus Solostar Pen Inj (Insulin Glargine) 300 Unit/3 Ml Pen 20 Units SQ DAILY Fluticasone Nasal [place] 50 Mcg/Act Naspr 50 Mcg EACH NARE BID 50 mcg/spray Vitamin D (Cholecalciferol) 400 Unit/Ml Drops 400 Units PO DAILY Magnesium Gluconate 500 Mg Tab 500 Mg PO DAILY Sodium Bicarbonate 650 Mg Tab 1,300 Mg PO BIDPC Mycophenolate (Mycophenolate Mofetil) 500 Mg Tab 500 Mg PO BID Deltasone (Prednisone) 20 Mg Tab 10 Mg PO DAILY Nephrocaps (B-Complex W/ C & Folic Acid) 1 Cap 1 Cap PO DAILY If on dialysis, take after treatment. Review of Systems Except as stated in HPI: all other systems reviewed are Neg Physical Exam Narrative GENERAL: Well-nourished, well-developed 56-year-old male patient in no acute distress. Nontoxic appearing. SKIN: Focused skin assessment warm/dry. HEAD: Normocephalic. Atraumatic. EYES: No scleral icterus. No injection or drainage. MOUTH: Gingival erythema and mild edema noted surrounding tooth #14 and 15. Tooth #15 has a noticeable crack. No areas of fluctuation noted. NECK: Supple, trachea midline. No JVD or lymphadenopathy. CARDIOVASCULAR: Regular rate and rhythm without murmurs, gallops, or rubs. RESPIRATORY: Breath sounds equal bilaterally. No accessory muscle use. GASTROINTESTINAL: Abdomen soft, non-tender, nondistended. MUSCULOSKELETAL: No cyanosis, or edema. Data Data Last Documented VS Vital Signs Date Time Temp Pulse Resp B/P (MAP) Pulse Ox O2 Delivery O2 Flow Rate FiO2 05/21/17 09:31 98.2 80 14 177/102 (127) 98 MDM Medical Decision Making Medical Screen Exam Complete: Yes Emergency Medical Condition: Yes Differential Diagnosis Differential diagnoses include but not limited to dentalgia, pulpitis, dental abscess Narrative Course 56-year-old male patient presents emergency department for evaluation of dentalgia that started yesterday. Physical exam was consistent with infection surrounding tooth #14 and 15. Patient was discharged home with a prescription for Augmentin and instructions to follow-up with a dentist or return the emergency Department with any worsening condition. Diagnosis Primary Impression: Oral infection Referrals: [facility] Patient Instructions: Dental Abscess (ED), General Instructions Additional Instructions: Please return to emergency department if your symptoms return or worsen. Follow up with your primary care provider. Take medications as prescribed. Follow-up with [facility]. Follow up with a dentist. Ibuprofen or Tylenol as needed for pain or fevers. Warm moist compress will help facilitate drainage. Clove oil applied to cotton swab and applied directly to site will help with dental pain. Med/Other Pt SpecificInfo: Prescription(s) given Scripts Chlorhexidine Gluconate (Mouth) Liq (Chlorhexidine Gluconate (Mouth) Liq) 0.12% Soln 15 ML SWISH-SPIT BID, #473 ML 0 Refills Prov: Maria Fernanda Dykes 05/21/17 Amoxicillin-Clavulanate (Augmentin) 875-125 Mg Tab 1 TAB PO BID for Infection for 7 Days, #14 TAB 0 Refills Prov: Maria Fernanda Dykes 05/21/17 Disposition: DISCHARGE HOME Condition: Stable Maria Fernanda Dykes May 21, 2017 10:33
[2017-05-21] MEDS ORDERED: CHLO.12%30 SWISH-SPIT (10:40)
[2017-05-21] MEDS ORDERED: ACETAMINOPHEN 325 MG TAB PO ONE (11:00)
== END 2017-05-21 11:08 | disposition home or self-care (01) ==
LOC: NEPD 09:30
DX: B37.0 Candidal stomatitis (principal); K08.89 Other specified disorders of teeth and supporting structures; I13.0 Hypertensive heart and chronic kidney disease with heart failure and stage 1 through stage 4 chronic kidney disease, or unspecified chronic kidney disease; I50.9 Heart failure, unspecified; N18.9 Chronic kidney disease, unspecified; E11.22 Type 2 diabetes mellitus with diabetic chronic kidney disease; K21.9 Gastro-esophageal reflux disease without esophagitis; E07.9 Disorder of thyroid, unspecified; E78.00 Pure hypercholesterolemia, unspecified
CPT/HCPCS: 99283

== ENCOUNTER 2017-08-20 11:43 | Emergency (ER) | payer MEDICAID, OTHER ==
[~2017-08-20] VITALS: Ht 188 cm; Wt 80.0 kg
[~2017-08-20 11:43] MED LIST changes: +AUGM875T3 PO; +CHLO.12%30 SWISH-SPIT; +INSU-92 SQ
[2017-08-20 11:44] VITALS: BP 162/95; PULSE 77; RESP 18; TEMP 98.9; O2SAT 97
--- NOTE | 2017-08-20 13:45 | PD ---
HPI Chief Complaint: Cold / Flu Symptoms Time Seen by Provider: 13:38 Travel History International Travel<30 days: No Contact w/Intl Traveler<30days: No Traveled to known affect area: No History of Present Illness HPI C/O RUNNY NOSE, DRY COUGH, CHILLS ONSET 2 DAYS AGO....NO ALLEVIATING/ AGGRAVATING FACTORS. DENIES ASSOC FACTORS SUCH FEVER/LO/CP/ABDPAIN/ BACKPAIN /. PCP [facility] [place] IS RENAL DOCTOR ALL: LATEX, NKDA PMHX: CHF, HTN, HYPERCHOL, KIDNEY TRANSPLANT, DM, HYPOTHYROID PFSH Past Medical History Hx Anticoagulant Therapy: No Asthma: No Blood Disorders: No Anxiety: No Depression: No Heart Rhythm Problems: No Cancer: No Cardiac Catheterization: No Cardiovascular Problems: Yes High Cholesterol: Yes Chemotherapy: No Chest Pain: No Congestive Heart Failure: Yes (2007) COPD: No Cerebrovascular Accident: No Diabetes: Yes Diminished Hearing: No Endocrine: Yes Gastrointestinal Disorders: Yes (GERD) GERD: No Genitourinary: No Hepatitis: No Hiatal Hernia: No Hypertension: Yes Immune Disorder: No Kidney Stones: No Musculoskeletal: No Neurologic: No Psychiatric: No Reproductive: No Respiratory: No Immunizations Current: No Radiation Therapy: No Renal Failure: Yes (KIDNEY TRANSPLANT) Sleep Apnea: No Thyroid Disease: Yes Ulcer: No Past Surgical History Abdominal Surgery: Yes (ABD AND INGUINAL HERNIA REPAIR) AICD: No Body Medical Devices: KIDNEY TRANPLANT R Cardiac Surgery: No Coronary Artery Bypass Graft: No Ear Surgery: No Eye Surgery: No Genitourinary Surgery: Yes (R KIDNEY TRANSPLANT 2008) Gynecologic Surgery: No Joint Replacement: No Oral Surgery: No Pacemaker: No Thoracic Surgery: No Other Surgery: Yes (fistula, ACL, hernia, kidney transplant 2008) Social History Alcohol Use: No Tobacco Use: No Substance Use: No Allergies-Medications (Allergen,Severity, Reaction): Coded Allergies: banana (Unverified Allergy, Severe, HIVES, 04/30/17) beet (Unverified Allergy, Severe, HIVES, 04/30/17) latex (Unverified Allergy, Severe, Hives and rash, 04/30/17) peas (Unverified Allergy, Severe, HIVES, 04/30/17) Uncoded Allergies: FRESH TOMATO (Allergy, Severe, 12/04/16) HIVES CAN HAVE KETCHUP Reported Meds & Prescriptions Reported Meds & Active Scripts Active Lasix (Furosemide) 40 Mg Tab 40 Mg PO BID Lantus Solostar Pen Inj (Insulin Glargine) 300 Unit/3 Ml Pen 20 Units SQ DAILY Zofran (Ondansetron HCl) 4 Mg Tab 4 Mg PO Q12HR PRN Carefine Pen [place] 30Gx 30G X 8 mm (Insulin Pen Needle/Carefine 30Gx 30G X 8 mm) 30 Gauge X 5/16" Mis Box SQ BID Chlorhexidine Gluconate (Mouth) Liq (Chlorhexidine Gluconate) 0.12% Soln 15 Ml SWISH-SPIT BID Protonix (Pantoprazole Sodium) 20 Mg Tab 20 Mg PO DAILY PRN Hydralazine (Hydralazine HCl) 100 Mg Tab 25 Mg PO TID Take with meals Lisinopril-Hctz 20-25 Mg Tab 1 Tab PO DAILY Metoprolol Succinate ER 24 HR (Metoprolol Succinate) 100 Mg Tab 100 Mg PO DAILY Levothyroxine (Levothyroxine Sodium) 25 Mcg Tab 25 Mcg PO DAILY Amlodipine (Amlodipine Besylate) 10 Mg Tab 10 Mg PO DAILY Atorvastatin (Atorvastatin Calcium) 40 Mg Tab 40 Mg PO EVERY OTHER DAY Tacrolimus 5 Mg Cap 5 Mg PO Q12H Baclofen 10 Mg Tab 10 Mg PO Q8HR PRN 7 Days Reported Humalog Kwikpen Pen Inj (Insulin Lispro (Human) Inj) 300 Unit/3 Ml Pen 0 SQ ACHS Fluticasone Nasal [place] 50 Mcg/Act Naspr 50 Mcg EACH NARE BID 50 mcg/spray Vitamin D (Cholecalciferol) 400 Unit/Ml Drops 400 Units PO DAILY Magnesium Gluconate 500 Mg Tab 500 Mg PO DAILY Sodium Bicarbonate 650 Mg Tab 1,300 Mg PO BIDPC Mycophenolate (Mycophenolate Mofetil) 500 Mg Tab 500 Mg PO BID Deltasone (Prednisone) 20 Mg Tab 10 Mg PO DAILY Nephrocaps (B-Complex W/ C & Folic Acid) 1 Cap 1 Cap PO DAILY If on dialysis, take after treatment. Review of Systems General / Constitutional: No: Fever Eyes: No: Visual changes HENT: Positive: Rhinorrhea Cardiovascular: No: Chest Pain or Discomfort Respiratory: Positive: Cough Gastrointestinal: No: Abdominal Pain Genitourinary: No: Dysuria Musculoskeletal: No: Pain Skin: No Rash Neurologic: No: Weakness Psychiatric: No: Depression Endocrine: No: Polydipsia Hematologic/Lymphatic: No: Easy Bruising Physical Exam Narrative GENERAL: SKIN: Warm and dry. HEAD: Atraumatic. Normocephalic. EYES: Pupils equal and round. No scleral icterus. No injection or drainage. ENT: No nasal bleeding or discharge. Mucous membranes pink and moist. NECK: Trachea midline. No JVD. CARDIOVASCULAR: Regular rate and rhythm. RESPIRATORY: No accessory muscle use. Clear to auscultation. Breath sounds equal bilaterally. GASTROINTESTINAL: Abdomen soft, non-tender, nondistended. MUSCULOSKELETAL: Extremities without clubbing, cyanosis, or edema. No obvious deformities. NEUROLOGICAL: Awake and alert. No obvious cranial nerve deficits. Motor grossly within normal limits. Five out of 5 muscle strength in the arms and legs. Normal speech. PSYCHIATRIC: Appropriate mood and affect; insight and judgment normal. Data Data Last Documented VS Vital Signs Date Time Temp Pulse Resp B/P (MAP) Pulse Ox O2 Delivery O2 Flow Rate FiO2 08/20/17 11:44 98.9 77 18 162/95 (117) 97 Room Air Orders Orders Chest, Single Ap (08/20/17 14:21) MDM Medical Decision Making Medical Screen Exam Complete: Yes Emergency Medical Condition: Yes Medical Record Reviewed: Yes Differential Diagnosis PNA V PTX V PULM EDEMA V CLINICAL INFLUENZA Narrative Course CHEST XRAY NEG FOR PTX/PULM EDEMA/PNA HOWEVER IT DID SHOW A 2.2 CM RIGHT HILAR MASS. PATIENT MADE AWARE OF FINDING AND THE NEED TO FOLLOW UP Diagnosis Primary Impression: INFLUENZA Additional Impression: INCIDENTAL RIGHT HILAR MASS Patient Instructions: General Instructions, Influenza (DC) Additional Instructions: PLEASE MAKE APPOINTMENT WITH [facility] TO FOLLOW UP ON YOUR ABNORMAL CHEST XRAY. Scripts Guaifenesin-Codeine Liq (Guaifenesin AC Liq) 100-10 Mg/5 Ml Syrp 10 ML PO Q6H Y for COUGH, #120 ML 0 Refills Prov: Cali Haider MD 08/20/17 Oseltamivir (Tamiflu) 75 Mg Cap 75 MG PO BID for Mgmt Viral Infection for 5 Days, #10 CAP 0 Refills Prov: Cali Haider MD 08/20/17 Disposition: 01 DISCHARGE HOME Condition: Stable Cali Haider MD Aug 20, 2017 13:45
--- NOTE | 2017-08-20 15:46 | RADRPT ---
EXAM DATE/TIME: 08/20/2017 15:05 [facility] COMPARISON: CHEST SINGLE AP, February 12, 2017, 8:25. CHEST SINGLE AP, April 30, 2017, 19:17. EXTERNAL COMPARISON : INDICATIONS : Cough. MEDICAL HISTORY : Hypercholesterolemia. Hypertension. Congestive heart failure. Renal failure SURGICAL HISTORY : Inguinal hernia repair. Transplant kidney. AV fistula left arm. ENCOUNTER: Initial ACUITY: 2 days PAIN SCORE: 0/10 LOCATION: Bilateral upper chest FINDINGS: A single portable frontal view the chest shows a 2.2 cm rounded nodule projecting over the right hilu m. This is a new finding from the prior exams. The lungs are otherwise clear. No effusions. Heart is normal in size. Bony structures are unremarkable. CONCLUSION: 2.2 cm rounded masslike density projecting over the right hilum is new from the prior studies and war rants further characterization utilizing the CT of the thorax with IV contrast. Clear lungs otherwise . Jad Romero Jr., MD on August 20, 2017 at 15:43 Board Certified Radiologist. This report was verified electronically.
[2017-08-20] MEDS ORDERED: OSEL75 PO (15:53)
[2017-08-20] MEDS ORDERED: GUAISYP4 PO (15:53)
== END 2017-08-20 16:03 | disposition home or self-care (01) ==
LOC: NEPD 11:43
DX: J11.1 Influenza due to unidentified influenza virus with other respiratory manifestations (principal); I13.0 Hypertensive heart and chronic kidney disease with heart failure and stage 1 through stage 4 chronic kidney disease, or unspecified chronic kidney disease; I50.9 Heart failure, unspecified; N18.9 Chronic kidney disease, unspecified; E11.22 Type 2 diabetes mellitus with diabetic chronic kidney disease; E78.00 Pure hypercholesterolemia, unspecified; Z79.4 Long term (current) use of insulin; Z79.899 Other long term (current) drug therapy
CPT/HCPCS: 71045; 99283

== ENCOUNTER 2017-09-01 11:39 | Inpatient (IN) | payer OTHER, MEDICARE ==
[~2017-09-01] VITALS: Ht 180.3 cm; Wt 76.5 kg
[2017-09-01] VITALS (8 sets, daily range): BP systolic 135–170; BP diastolic 60–97; PULSE 78–103; RESP 16–22; TEMP 97.5–100.8; O2SAT 84–98
[~2017-09-01 11:39] MED LIST changes: -AUGM875T3 PO; +GUAISYP4 PO; +OSEL75 PO
--- NOTE | 2017-09-01 12:11 | PD ---
HPI Chief Complaint: Respiratory Symptoms Time Seen by Provider: 12:06 Travel History International Travel<30 days: No Contact w/Intl Traveler<30days: No Traveled to known affect area: No History of Present Illness HPI Patient is a 56-year-old male with a history of renal transplant followed by Dr. Pereira presents emergency department for evaluation of cough congestion fever and generally not feeling well over the past few days. Patient was here in late July diagnosed with influenza. At that time saturations 96%. Patient states he has no history of COPD. States fairly short of breath and is having some left-sided chest pain as well. Symptoms severe, for the past few days, gradually worsening. Context and associated signs and symptoms as above PFSH Past Medical History Hx Anticoagulant Therapy: No Asthma: No Blood Disorders: No Anxiety: No Depression: No Heart Rhythm Problems: No Cancer: No Cardiac Catheterization: No Cardiovascular Problems: Yes High Cholesterol: Yes Chemotherapy: No Chest Pain: No Congestive Heart Failure: Yes (2007) COPD: No Cerebrovascular Accident: No Diabetes: Yes Patient Takes Glucophage: No Diminished Hearing: No Endocrine: Yes Gastrointestinal Disorders: Yes (GERD) GERD: No Genitourinary: No Hepatitis: No Hiatal Hernia: No Heparin Induced Thrombocytopen: No Hypertension: Yes Immune Disorder: No Implanted Vascular Access Dvce: No Kidney Stones: No Medical other: No Musculoskeletal: No Neurologic: No Psychiatric: No Reproductive: No Respiratory: No Immunizations Current: No Radiation Therapy: No Renal Failure: Yes (KIDNEY TRANSPLANT) Sleep Apnea: No Thyroid Disease: Yes Ulcer: No ?: Not Past Surgical History Abdominal Surgery: Yes (ABD AND INGUINAL HERNIA REPAIR) AICD: No Body Medical Devices: KIDNEY TRANPLANT R Cardiac Surgery: No Coronary Artery Bypass Graft: No Ear Surgery: No Eye Surgery: No Genitourinary Surgery: Yes (R KIDNEY TRANSPLANT 2008) Gynecologic Surgery: No Joint Replacement: No Oral Surgery: No Pacemaker: No Thoracic Surgery: No Other Surgery: Yes (fistula, ACL, hernia, kidney transplant 2008) Family History Family Myocardial Infarction: Yes (dad [place] 1994) Social History Alcohol Use: No Tobacco Use: No Substance Use: No Allergies-Medications (Allergen,Severity, Reaction): Coded Allergies: banana (Unverified Allergy, Severe, HIVES, 09/01/17) beet (Unverified Allergy, Severe, HIVES, 09/01/17) latex (Unverified Allergy, Severe, Hives and rash, 09/01/17) peas (Unverified Allergy, Severe, HIVES, 09/01/17) Uncoded Allergies: FRESH TOMATO (Allergy, Severe, 12/04/16) HIVES CAN HAVE KETCHUP Reported Meds & Prescriptions Reported Meds & Active Scripts Active Guaifenesin AC Liq (Guaifenesin-Codeine Liq) 100-10 Mg/5 Ml Syrp 10 Ml PO Q6H PRN Tamiflu (Oseltamivir Phosphate) 75 Mg Cap 75 Mg PO BID 5 Days Lasix (Furosemide) 40 Mg Tab 40 Mg PO BID Lantus Solostar Pen Inj (Insulin Glargine) 300 Unit/3 Ml Pen 20 Units SQ DAILY Zofran (Ondansetron HCl) 4 Mg Tab 4 Mg PO Q12HR PRN Carefine Pen Dickinson 30Gx 30G X 8 mm (Insulin Pen Needle/Carefine 30Gx 30G X 8 mm) 30 Gauge X 5/16" Mis Box SQ BID Chlorhexidine Gluconate (Mouth) Liq (Chlorhexidine Gluconate) 0.12% Soln 15 Ml SWISH-SPIT BID Protonix (Pantoprazole Sodium) 20 Mg Tab 20 Mg PO DAILY PRN Hydralazine (Hydralazine HCl) 100 Mg Tab 25 Mg PO TID Take with meals Lisinopril-Hctz 20-25 Mg Tab 1 Tab PO DAILY Metoprolol Succinate ER 24 HR (Metoprolol Succinate) 100 Mg Tab 100 Mg PO DAILY Levothyroxine (Levothyroxine Sodium) 25 Mcg Tab 25 Mcg PO DAILY Amlodipine (Amlodipine Besylate) 10 Mg Tab 10 Mg PO DAILY Atorvastatin (Atorvastatin Calcium) 40 Mg Tab 40 Mg PO EVERY OTHER DAY Tacrolimus 5 Mg Cap 5 Mg PO Q12H Baclofen 10 Mg Tab 10 Mg PO Q8HR PRN 7 Days Reported Humalog Kwikpen Pen Inj (Insulin Lispro (Human) Inj) 300 Unit/3 Ml Pen 0 SQ ACHS Fluticasone Nasal [place] 50 Mcg/Act Naspr 50 Mcg EACH NARE BID 50 mcg/spray Vitamin D (Cholecalciferol) 400 Unit/Ml Drops 400 Units PO DAILY Magnesium Gluconate 500 Mg Tab 500 Mg PO DAILY Sodium Bicarbonate 650 Mg Tab 1,300 Mg PO BIDPC Mycophenolate (Mycophenolate Mofetil) 500 Mg Tab 500 Mg PO BID Deltasone (Prednisone) 20 Mg Tab 10 Mg PO DAILY Nephrocaps (B-Complex W/ C & Folic Acid) 1 Cap 1 Cap PO DAILY If on dialysis, take after treatment. Physical Exam Narrative GENERAL: Well-developed, well-nourished, very tachypneic. SKIN: Focused skin assessment warm/dry. HEAD: Atraumatic. Normocephalic. EYES: Pupils equal and round. No scleral icterus. No injection or drainage. ENT: No nasal bleeding or discharge. Mucous membranes pink and moist. NECK: Trachea midline. No JVD. CARDIOVASCULAR: Regular rate and rhythm. No murmur appreciated. RESPIRATORY: No accessory muscle use. Clear to auscultation. Breath sounds equal bilaterally. GASTROINTESTINAL: Abdomen soft, non-tender, nondistended. Hepatic and splenic margins not palpable. MUSCULOSKELETAL: No obvious deformities. No clubbing. No cyanosis. No edema. NEUROLOGICAL: Awake and alert. No obvious cranial nerve deficits. Motor grossly within normal limits. Normal speech. PSYCHIATRIC: Appropriate mood and affect; insight and judgment normal. Data Data Last Documented VS Vital Signs Date Time Temp Pulse Resp B/P (MAP) Pulse Ox O2 Delivery O2 Flow Rate FiO2 09/01/17 14:24 16 09/01/17 14:12 88 135/77 (96) 96 Nasal Cannula 2.00 09/01/17 12:30 100.8 Orders Orders Sepsis Workup Initiated (09/01/17 ) Electrocardiogram (09/01/17 12:06) Complete Blood Count With Diff (09/01/17 12:06) Comprehensive Metabolic Panel (09/01/17 12:06) Prothrombin Time / Inr (Pt) (09/01/17 12:06) Act Partial Throm Time (Ptt) (09/01/17 12:06) Lactic Acid Sepsis Protocol (09/01/17 12:06) Magnesium (Mg) (09/01/17 12:06) Phosphorus (Po4) (09/01/17 12:06) Lipase (09/01/17 12:06) Ckmb (Isoenzyme) Profile (09/01/17 12:06) Troponin I (09/01/17 12:06) Urinalysis - C+S If Indicated (09/01/17 12:06) Influenzae A/B Antigen (09/01/17 12:06) Blood Culture (09/01/17 12:06) Chest, Single Ap (09/01/17 12:06) Blood Glucose (09/01/17 12:06) Ecg Monitoring (09/01/17 12:06) Iv Access Insert/Monitor (09/01/17 12:06) Oximetry (09/01/17 12:06) Oxygen Administration (09/01/17 12:06) Acetaminophen (Tylenol) (09/01/17 12:15) Sodium Chlor 0.9% 1000 Ml Inj (Ns 1000 M (09/01/17 12:15) Levofloxacin 500 Mg Premix Inj (Levaquin (09/01/17 12:15) Vancomycin Inj (Vancomycin Inj) (09/01/17 12:45) Piperacil-Tazo 2.25 Gm Premix (Zosyn 2.2 (09/01/17 12:45) CKMB (09/01/17 12:25) CKMB% (09/01/17 12:25) Sodium Chlor 0.9% 1000 Ml Inj (Ns 1000 M (09/01/17 14:00) Sodium Chlor 0.9% 1000 Ml Inj (Ns 1000 M (09/01/17 14:00) Consult Nephrology (09/01/17 ) (Hub Use Only)Inp Phy Cons/Ref (09/01/17 ) Admit Order (Ed Use Only) (09/01/17 ) Labs Laboratory Tests Test 09/01/17 12:25 09/01/17 12:35 09/01/17 14:00 White Blood Count 31.3 TH/MM3 Red Blood Count 4.38 MIL/MM3 Hemoglobin 10.5 GM/DL Hematocrit 33.9 % Mean Corpuscular Volume 77.4 FL Mean Corpuscular Hemoglobin 23.9 PG Mean Corpuscular Hemoglobin Concent 30.9 % Red Cell Distribution Width 15.9 % Platelet Count 242 TH/MM3 Mean Platelet Volume 8.5 FL Neutrophils (%) (Auto) 91.6 % Lymphocytes (%) (Auto) 2.6 % Monocytes (%) (Auto) 5.1 % Eosinophils (%) (Auto) 0.0 % Basophils (%) (Auto) 0.7 % Neutrophils # (Auto) 28.6 TH/MM3 Lymphocytes # (Auto) 0.8 TH/MM3 Monocytes # (Auto) 1.6 TH/MM3 Eosinophils # (Auto) 0.0 TH/MM3 Basophils # (Auto) 0.2 TH/MM3 CBC Comment AUTO DIFF Differential Total Cells Counted 100 Neutrophils % (Manual) 81 % Band Neutrophils % 14 % Lymphocytes % 1 % Monocytes % 4 % Neutrophils # (Manual) 29.7 TH/MM3 Differential Comment FINAL DIFF MANUAL Toxic Vacuolation Dohle Bodies PRESENT Platelet Estimate NORMAL Platelet Morphology Comment NORMAL Ovalocytes 1+ Acanthocytes OCC Prothrombin Time 12.0 SEC Prothromb Time International Ratio 1.2 RATIO Activated Partial Thromboplast Time 29.2 SEC Blood Urea Nitrogen 77 MG/DL Creatinine 4.15 MG/DL Random Glucose 280 MG/DL Total Protein 5.8 GM/DL Albumin 2.2 GM/DL Calcium Level 8.0 MG/DL Phosphorus Level 3.7 MG/DL Magnesium Level 1.7 MG/DL Alkaline Phosphatase 74 U/L Aspartate Amino Transf (AST/SGOT) 19 U/L Alanine Aminotransferase (ALT/SGPT) 17 U/L Total Bilirubin 0.3 MG/DL Sodium Level 139 MEQ/L Potassium Level 5.3 MEQ/L Chloride Level 111 MEQ/L Carbon Dioxide Level 18.8 MEQ/L Anion Gap 9 MEQ/L Estimat Glomerular Filtration Rate 18 ML/MIN Total Creatine Kinase 399 U/L Creatine Kinase MB 2.4 NG/ML Creatine Kinase MB % 0.6 % Troponin I 0.06 NG/ML Lipase 47 U/L Lactic Acid Level 1.9 mmol/L Urine Color LIGHT-YELLOW Urine Turbidity CLEAR Urine pH 6.5 Urine Specific [place] 1.014 Urine Protein 300 mg/dL Urine Glucose (UA) 150 mg/dL Urine Ketones NEG mg/dL Urine Occult Blood SMALL Urine Nitrite NEG Urine Bilirubin NEG Urine Urobilinogen LESS THAN 2.0 MG/DL Urine Leukocyte Esterase NEG Urine RBC 1 /hpf Urine WBC 1 /hpf Urine Mucus FEW /lpf Microscopic Urinalysis Comment CATH-CULT NOT IND MDM Medical Decision Making Medical Screen Exam Complete: Yes Emergency Medical Condition: Yes Differential Diagnosis Pneumonia, sepsis, COPD, asthma, PE seems unlikely. Narrative Course Patient room to the emergency department, initial saturation on room air is 86% , taken back to echo pod placed on cardiac telemetry monitoring saturation was confirmed, 100.8 fever, placed on 2 L nasal cannula and saturations peña to 92% . Full septic workup initiated, lung sounds fairly clear but given his cough and congestion a dose of Levaquin was started empirically however thought was then given to the patient being immunocompromised B and that he is on immunosuppressive for his renal failure the Levaquin was canceled and he was given vancomycin and Zosyn instead. Given his history of CHF and renal failure will await to see lactic acid and basic lab prior to aggressive fluid resuscitation his blood pressure is normal. Patient's labs reviewed and patient does have a significant acute kidney injury and his creatinine is doubled from baseline from 2 to 4. Patient on broad- spectrum antibiotics will receive a total of 3 L normal saline bolus. His lactic acid is negative. But with his acute kidney injury this would meet definition of severe sepsis. The patient stabilized nicely on 3 L nasal cannula , there is been no hypotension while in the emergency department. He is feeling much better after nasal cannula. Patient was discussed with Dr. Pereira his lens blank gauger who has no additional recommendations at this time but will see in consultation. Patient was discussed with Dr. Kovacs for admission to the hospital. Critical Care Narrative Aggregate critical care time was 35 minutes. Time to perform other separately billable procedures was not included in the critical care time. My time did not include minutes spent treating any other patients simultaneously or on activities that did not directly contribute to the patient's treatment. The services I provided to this patient were to treat and/or prevent clinically significant deterioration that could result in: , Disability and organ failure. I provided critical care services requiring my management, as noted below: Chart data review, documentation time, medication orders and management, vital sign assessments/reviewing monitor data, ordering and reviewing lab tests, ordering and interpreting/reviewing x-rays and diagnostic studies, care of the patient and discussion of the patient with the admitting physicians. Diagnosis Primary Impression: Severe sepsis Additional Impressions: Pneumonia MEJIA (acute kidney injury) Acute respiratory failure with hypoxia Immunocompromised due to corticosteroids Admitting Information Admitting Physician Requests: Admit Condition: Alli Liang MD Sep 01, 2017 12:11
[2017-09-01] MEDS ORDERED: ACETAMINOPHEN 325 MG TAB PO ONE (12:15)
[2017-09-01] MEDS ORDERED: SODIUM CHLOR 0.9% 1000 ML INJ 1,000 ML IV ONE ×3 (12:15→14:00)
[2017-09-01] MEDS ORDERED: LEVOFLOXACIN 500 MG PREMIX INJ 100 ML IV ONE (12:15)
[2017-09-01] MEDS ORDERED: PIPERACIL-TAZO 2.25 GM PREMIX 50 ML IV ONE (12:45)
[2017-09-01] MEDS ORDERED: VANCOMYCIN INJ 1,000 MG in SODIUM CHLOR 0.9% 250 ML INJ 250 ML IV ONE (12:45)
--- NOTE | 2017-09-01 12:47 | RADRPT ---
EXAM DATE/TIME: 09/01/2017 12:32 [facility] COMPARISON: CHEST SINGLE AP, August 20, 2017, 15:05. INDICATIONS : Fever, cough, short of breath. MEDICAL HISTORY : None. SURGICAL HISTORY : None. ENCOUNTER: Initial ACUITY: 4 - 6 days PAIN SCORE: 0/10 LOCATION: Bilateral chest FINDINGS: A single view of the chest demonstrates consolidation lingula and left lower lobe. Heart borderline e nlarged.. Osseous structures are intact. CONCLUSION: Lingular and left lower lobe consolidation likely pneumonia. Treatment and followup to resolution.. Kareem Burnham MD on September 01, 2017 at 12:44 Board Certified Radiologist. This report was verified electronically.
[2017-09-01 13:01] LABS: AUTOMATED NEUTROPHIL # 28.6 TH/MM3 (1.8-7.7); BASOPHIL # 0.2 TH/MM3 (0-0.2); BASOPHIL % 0.7 % (0.0-2.0); HEMATOCRIT 33.9 % (39.0-51.0); HEMOGLOBIN 10.5 GM/DL (13.0-17.0); LYMPH % 2.6 % (9.0-44.0); LYMPHOCYTE # 0.8 TH/MM3 (1.0-4.8); MEAN CELL VOLUME 77.4 FL (80.0-100.0); MEAN CORPUSCULAR HEMOGLOBIN 23.9 PG (27.0-34.0); MEAN CORPUSCULAR HGB CONC 30.9 % (32.0-36.0); MEAN PLATELET VOLUME 8.5 FL (7.0-11.0); MONO % 5.1 % (0.0-8.0); MONOCYTE # 1.6 TH/MM3 (0-0.9); NEUT % 91.6 % (16.0-70.0); PLATELET COUNT 242 TH/MM3 (150-450); RED BLOOD COUNT 4.38 MIL/MM3 (4.50-5.90); RED CELL DISTRIBUTION WIDTH 15.9 % (11.6-17.2); WHITE BLOOD COUNT 31.3 TH/MM3 (4.0-11.0)
[2017-09-01 13:06] LABS: INTERNATIONAL NORMALIZED RATIO 1.2 RATIO
[2017-09-01 13:13] LABS: ALBUMIN 2.2 GM/DL (3.4-5.0); ALT (GPT) 17 U/L (12-78); AST (GOT) 19 U/L (15-37); BICARBONATE 18.8 MEQ/L (21.0-32.0); BLOOD UREA NITROGEN 77 MG/DL (7-18); CHLORIDE 111 MEQ/L (98-107); CREATININE 4.15 MG/DL (0.60-1.30); GLOMERULAR FILTRATION RATE 18 ML/MIN (>89); GLUCOSE,RANDOM 280 MG/DL (74-106); MAGNESIUM 1.7 MG/DL (1.5-2.5); PHOSPHORUS 3.7 MG/DL (2.5-4.9); SODIUM (NA) 139 MEQ/L (136-145)
[2017-09-01 13:16] LABS: ALKALINE PHOSPHATASE 74 U/L (45-117); TOTAL BILIRUBIN ADULT 0.3 MG/DL (0.2-1.0); TOTAL PROTEIN 5.8 GM/DL (6.4-8.2); TROPONIN I 0.06 NG/ML (0.02-0.05)
[2017-09-01 13:39] LABS: ACANTHOCYTES OCC (NORMAL); BANDS 14 % (0-6); LYMPHOCYTES 1 % (9-44); MONOCYTES 4 % (0-8); NEUTROPHIL # MANUAL DIFF 29.7 TH/MM3 (1.8-7.7); OVALOCYTES 1+ (NORMAL); POLYS (SEG NEUTROPHILS) 81 % (16-70)
[2017-09-01 13:40] LABS: DOHLE BODIES PRESENT (NONE SEEN)
[2017-09-01 14:24] LABS: BILIRUBIN, URINE NEG (NEG); BLOOD, URINE SMALL (NEG); GLUCOSE,URINE 150 mg/dL (NEG); KETONE, URINE NEG (NEG); MUCUS URINE FEW /lpf (OCC); NITRITE,URINE NEG (NEG); PH, URINE 6.5 (5.0-8.5); URINE COLOR LIGHT-YELLOW (YELLW/STRAW); URINE LEUKOCYTE ESTERASE NEG (NEG)
[2017-09-01] MEDS ORDERED: NALOXONE HCL 0.4 MG/ML AMP IV PUSH PRN (14:45)
[2017-09-01] MEDS ORDERED: SODIUM CHLORIDE 0.9% FLUSH 10 ML FLUSH IV FLUSH PRN (14:45)
--- NOTE | 2017-09-01 16:06 | HHI.HP ---
[facility] [place] [facility] Unknown Admission Diagnosis Severe Sepsis, PNA. Diagnoses: Travel History International Travel<30 Days: No Contact w/Intl Traveler <30 Da: No Traveled to Known Affected Are: No History of Present Illness History from patient, ER physician communication, interview of medical records. short of breath all of a sudden last night has been coughing few days yellow color sputum fever of 104 at home just today had fever yesterday as well diarrhea today - 3 x today, no black or red color no urinary burning or pain or frequency 2 weeks ago had flu- here in ER 08/20 and prescribed tamiflu went away and it was ok, but all started yesterday cxr on 08/20 showing right hilar mass reports of chest pain on the left started this am woke up because of short of breath no radiation no association not moving around much for past couple of days due to illness no pains in abdomen no pains in flank Review of Systems Except as stated in HPI: all other systems reviewed are Neg Past Family Social History Past Medical History htn dm chf- while on dialysis because of fluid overload years ago esrd - transplant was 2008, not on dialysis since then, Dr Kelli HALEY Past Surgical History kidney transplant right side av fistulas permacath placeemtn ACL left Allergies: Coded Allergies: banana (Unverified Allergy, Severe, HIVES, 09/01/17) beet (Unverified Allergy, Severe, HIVES, 09/01/17) latex (Unverified Allergy, Severe, Hives and rash, 09/01/17) peas (Unverified Allergy, Severe, HIVES, 09/01/17) Uncoded Allergies: FRESH TOMATO (Allergy, Severe, 12/04/16) HIVES CAN HAVE KETCHUP Family History dad- massive HI mom- staph infections Social History tried smoking only when at 15yo , but never smoked since then no etoh abuse , not even socially snorted cocaine, quit 15yrs ago Physical Exam Vital Signs Vital Signs Date Time Temp Pulse Resp B/P (MAP) Pulse Ox O2 Delivery O2 Flow Rate FiO2 09/01/17 14:24 16 09/01/17 14:12 88 18 135/77 (96) 96 Nasal Cannula 2.00 09/01/17 12:30 100.8 88 18 170/90 (116) 96 Nasal Cannula 2.00 09/01/17 12:28 88 20 96 Nasal Cannula 3.00 09/01/17 12:28 94 Nasal Cannula 3.00 09/01/17 11:51 97.5 90 22 138/60 (86) 84 Physical Exam GENERAL: This is a well-nourished, well-developed patient, in mild distress from dsypnea though states he has improved since arrival to ER..on 5LNC, saturating about 93% SKIN:tactile fever HEAD: Atraumatic. Normocephalic. No temporal or scalp tenderness. EYES: No scleral icterus. No injection or drainage. ENT: Nose without bleeding, purulent drainage or septal hematoma. Airway patent. NECK: Trachea midline. No JVD . Supple, nontender, no meningeal signs. CARDIOVASCULAR: Regular rate and rhythm without murmurs, gallops, or rubs. RESPIRATORY: bilateral equal air entry with expiratory wheezing GASTROINTESTINAL: Abdomen soft, non-tender, nondistended. No guarding. MUSCULOSKELETAL: Extremities without clubbing, cyanosis, or edema.. No calf tenderness. NEUROLOGICAL: Awake and alert. Motor and sensory grossly within normal limits. Normal speech. Laboratory Laboratory Tests Test 09/01/17 12:25 09/01/17 12:35 09/01/17 14:00 09/01/17 15:00 White Blood Count 31.3 Red Blood Count 4.38 Hemoglobin 10.5 Hematocrit 33.9 Mean Corpuscular Volume 77.4 Mean Corpuscular Hemoglobin 23.9 Mean Corpuscular Hemoglobin Concent 30.9 Red Cell Distribution Width 15.9 Platelet Count 242 Mean Platelet Volume 8.5 Neutrophils (%) (Auto) 91.6 Lymphocytes (%) (Auto) 2.6 Monocytes (%) (Auto) 5.1 Eosinophils (%) (Auto) 0.0 Basophils (%) (Auto) 0.7 Neutrophils # (Auto) 28.6 Lymphocytes # (Auto) 0.8 Monocytes # (Auto) 1.6 Eosinophils # (Auto) 0.0 Basophils # (Auto) 0.2 CBC Comment AUTO DIFF Differential Total Cells Counted 100 Neutrophils % (Manual) 81 Band Neutrophils % 14 Lymphocytes % 1 Monocytes % 4 Neutrophils # (Manual) 29.7 Differential Comment FINAL DIFF MANUAL Toxic Vacuolation Dohle Bodies PRESENT Platelet Estimate NORMAL Platelet Morphology Comment NORMAL Ovalocytes 1+ Acanthocytes OCC Prothrombin Time 12.0 Prothromb Time International Ratio 1.2 Activated Partial Thromboplast Time 29.2 Blood Urea Nitrogen 77 Creatinine 4.15 Random Glucose 280 Total Protein 5.8 Albumin 2.2 Calcium Level 8.0 Phosphorus Level 3.7 Magnesium Level 1.7 Alkaline Phosphatase 74 Aspartate Amino Transf (AST/SGOT) 19 Alanine Aminotransferase (ALT/SGPT) 17 Total Bilirubin 0.3 Sodium Level 139 Potassium Level 5.3 Chloride Level 111 Carbon Dioxide Level 18.8 Anion Gap 9 Estimat Glomerular Filtration Rate 18 Total Creatine Kinase 399 Creatine Kinase MB 2.4 Creatine Kinase MB % 0.6 Troponin I 0.06 Lipase 47 Lactic Acid Level 1.9 Urine Color LIGHT-YELLOW Urine Turbidity CLEAR Urine pH 6.5 Urine Specific [place] 1.014 Urine Protein 300 Urine Glucose (UA) 150 Urine Ketones NEG Urine Occult Blood SMALL Urine Nitrite NEG Urine Bilirubin NEG Urine Urobilinogen LESS THAN 2.0 Urine Leukocyte Esterase NEG Urine RBC 1 Urine WBC 1 Urine Mucus FEW Microscopic Urinalysis Comment CATH-CULT NOT IND Date/Time Source Procedure Growth Status 09/01/17 12:25 Blood Peripheral Aerobic Blood Culture Pending Received 09/01/17 12:25 Blood Peripheral Anaerobic Blood Culture Pending Received 09/01/17 13:15 Nasal Washing Influenza Types A,B Antigen (PARAMJIT) - Final NEGATIVE FOR FLU A AND B ANTIGEN.... Complete Result Diagram: 09/01/17 1225 09/01/17 1225 Imaging Last 48 hours Impressions Chest X-Ray 09/01/17 1206 Signed Impressions: Service Date/Time: Friday, September 01, 2017 12:32 - CONCLUSION: Lingular and left lower lobe consolidation likely pneumonia. Treatment and followup to resolution.. Kareem Burnham MD Chest CT 09/01/17 0000 Signed Impressions: Service Date/Time: Friday, September 01, 2017 16:45 - CONCLUSION: Dense consolidative changes left lung consistent with inflammatory process. Followup to resolution is suggested. Elvin Linn MD FACR Caprini VTE Risk Assessment Caprini VTE Risk Assessment: Mod/High Risk (score >= 2) Caprini Risk Assessment Model Point Value = 1 Point Value = 2 Point Value = 3 Point Value = 5 Age 41-60 Minor surgery BMI > 25 kg/m2 Swollen legs Varicose veins or History of unexplained or recurrent spontaneous Oral contraceptives or hormone replacement Sepsis (< 1 month) Serious lung disease, including pneumonia (< 1 month) Abnormal pulmonary function Acute myocardial infarction Congestive heart failure (< 1 month) History of inflammatory bowel disease Medical patient at bed rest Age 61-74 Arthroscopic surgery Major open surgery (> 45 min) Laparoscopic surgery (> 45 min) Malignancy Confined to bed (> 72 hours) Immobilizing plaster cast Central venous access Age >= 75 History of VTE Family history of VTE Factor V Leiden Prothrombin [id number] Lupus anticoagulant Anticardiolipin antibodies Elevated serum homocysteine Heparin-induced thrombocytopenia Other congenital or acquired thrombophilia Stroke (< 1 month) Elective arthroplasty Hip, pelvis, or leg fracture Acute spinal cord injury (< 1 month) Prophylaxis Regimen Total Risk Factor Score Risk Level Prophylaxis Regimen 0-1 Low Early ambulation 2 Moderate Order ONE of the following: *Sequential Compression Device (SCD) *Heparin 5000 units SQ BID 3-4 Higher Order ONE of the following medications: *Heparin 5000 units SQ TID *Enoxaparin/Lovenox 40 mg SQ daily (WT < 150 kg, CrCl > 30 mL/min) *Enoxaparin/Lovenox 30 mg SQ daily (WT < 150 kg, CrCl > 10-29 mL/min) *Enoxaparin/Lovenox 30 mg SQ BID (WT < 150 kg, CrCl > 30 mL/min) AND/OR *Sequential Compression Device (SCD) 5 or more Highest Order ONE of the following medications: *Heparin 5000 units SQ TID (Preferred with Epidurals) *Enoxaparin/Lovenox 40 mg SQ daily (WT < 150 kg, CrCl > 30 mL/min) *Enoxaparin/Lovenox 30 mg SQ daily (WT < 150 kg, CrCl > 10-29 mL/min) *Enoxaparin/Lovenox 30 mg SQ BID (WT < 150 kg, CrCl > 30 mL/min) AND *Sequential Compression Device (SCD) Assessment and Plan Assessment and Plan Impression: Left lower lobe pneumonia Hypoxia with high FiO2 requirements Acute renal failure Renal transplant status Diarrhea htn dm chf- while on dialysis because of fluid overload years ago esrd - transplant was 2008, not on dialysis since then, Dr Kelli HALEY Plan: IV hydration with normal saline at 100 cc per hour. Patient also received 2 L normal saline bolus in ER. We'll follow up renal function. Prograf levels. Nephrology consult. Patient's latest echo personally reviewed. No evidence of systolic or diastolic dysfunction. Patient himself reported that his history of CHF Was many years ago while he was on dialysis and gone into fluid overload Cefepime IV to be dosed by pharmacy per creatinine clearance for treatment of pneumonia. Continue oxygen supplementation. Nebulizers when necessary. CT thorax without IV contrast to further evaluate for his lung findings. We'll monitor fingersticks and cover with sliding scale coverage. We'll send stool studies since patient is complaining of diarrhea as well. DVT prophylaxis with heparin. Orders written to verify his meds reconciliation with his pharmacy [facility] [place] and [facility]. Discussed Condition With Patient, ER physician Physician Certification 2 Midnight Certification Type: Admission for Inpatient Services Order for Inpatient Services The services are ordered in accordance with Medicare regulations or non- Medicare payer requirements, as applicable. In the case of services not specified as inpatient-only, they are appropriately provided as inpatient services in accordance with the 2-midnight benchmark. Estimated LOS (days): 2 days is the estimated time the patient will need to remain in the hospital, assuming treatment plan goals are met and no additional complications. Post-Hospital Plan: Jose Dubois MD Sep 01, 2017 16:06
[2017-09-01] MEDS ORDERED: ACETAMINOPHEN 325 MG TAB PO PRN (16:15)
[2017-09-01] MEDS ORDERED: HYDR-3799 PO (16:56)
[2017-09-01] MEDS ORDERED: PRED10 PO (16:56)
[2017-09-01] MEDS ORDERED: CHOL400T17 PO (16:56)
[2017-09-01] MEDS ORDERED: LIPI80TA PO (16:56)
--- NOTE | 2017-09-01 17:07 | RADRPT ---
EXAM DATE/TIME: 09/01/2017 16:45 [facility] COMPARISON: No previous studies available for comparison. INDICATIONS : Chest pain and short of breath, mass verses infiltrate. RADIATION DOSE: 10.08 CTDIvol (mGy) MEDICAL HISTORY : Cardiovascular disease. Hypertension. SURGICAL HISTORY : kidney transplant ENCOUNTER: Initial ACUITY: 1 day PAIN SCALE: 7/10 LOCATION: chest TECHNIQUE: Volumetric scanning of the chest was performed. Using automated exposure control and adjustment of t he mA and/or kV according to patient size, radiation dose was kept as low as reasonably achievable to obtain optimal diagnostic quality images. DICOM format image data is available electronically for r eview and comparison. Follow-up recommendations for detected pulmonary nodules are based at a minimum on nodule size and pa tient risk factors according to Fleischner Society Guidelines. FINDINGS: Dense consolidative changes are seen in the left lung involving most of the left t lower lobe. Ther e is no pleural effusion. Minimal patchy airspace disease is seen in the right lung. There is no axillary adenopathy. There is no mediastinal adenopathy. There is no pericardial effusi on. Review of bone windows reveals moderate degenerative changes. The portion of the upper abdominal contents visualized are unremarkable. CONCLUSION: Dense consolidative changes left lung consistent with inflammatory process. Followup to resolution i s suggested. Elvin Linn MD FACR on September 01, 2017 at 17:03 Board Certified Radiologist. This report was verified electronically.
[2017-09-01] MEDS: SODIUM CHLOR 0.9% 1000 ML INJ 1,000 ML IV SCH (18:24)
[2017-09-01] MEDS ORDERED: NON-FORMULARY DRUG (Ondansetron (Zofran) 4 MG) PO PRN (19:15)
[2017-09-01] MEDS ORDERED: PANTOPRAZOLE SOD 20 MG DELAYED RELEASE TAB PO PRN (19:15)
--- NOTE | 2017-09-01 19:29 | PD.CONS ---
HPI Service Nephrology Consult Requested By Dr. Fuentes Reason for Consult history of kidney transplant Primary Care Physician Unknown History of Present Illness Patient is a 56-year-old male with history of end-stage renal disease status post kidney transplant in 2008 at [facility] in [facility] and he moved to to this area and has been followed by me, his creatinine was 3.1 last month and he had a chest mass, he developed a pneumonia and underwent CT scan today which showed inflammatory changes in the left lung with consolidation, he's been admitted to treat the pneumonia and the receiving antibiotics and the high white cell count of 31,000 creatinine 4.15 and his potassium is 5.3, he is on prednisone 10 mg, Prograf 5 mg twice a day and mycophenolate 500 mg twice a day. Review of Systems Constitutional: COMPLAINS OF: Fatigue, Fever Respiratory: COMPLAINS OF: Wheezing, Sputum production Cardiovascular: COMPLAINS OF: Dyspnea on Exertion Musculoskeletal: COMPLAINS OF: Joint pain, Muscle aches Psychiatric: COMPLAINS OF: Anxiety Past Family Social History Allergies: Coded Allergies: banana (Unverified Allergy, Severe, HIVES, 09/01/17) beet (Unverified Allergy, Severe, HIVES, 09/01/17) latex (Unverified Allergy, Severe, Hives and rash, 09/01/17) peas (Unverified Allergy, Severe, HIVES, 09/01/17) Uncoded Allergies: FRESH TOMATO (Allergy, Severe, 12/04/16) HIVES CAN HAVE KETCHUP Past Medical History Diabetes Hypertension ESRD Kidney transplant Anemia Vitamin D deficiency Hyperlipidemia History of congestive heart failure Past Surgical History Kidney transplant 2009 A fistula Hernia repair Left ACL repair Reported Medications Reported Meds & Active Scripts Active Lasix (Furosemide) 40 Mg Tab 40 Mg PO BID Lantus Solostar Pen Inj (Insulin Glargine) 300 Unit/3 Ml Pen 20 Units SQ DAILY Zofran (Ondansetron HCl) 4 Mg Tab 4 Mg PO Q12HR PRN Protonix (Pantoprazole Sodium) 20 Mg Tab 20 Mg PO DAILY PRN Lisinopril-Hctz 20-25 Mg Tab 1 Tab PO DAILY Metoprolol Succinate ER 24 HR (Metoprolol Succinate) 100 Mg Tab 100 Mg PO DAILY Levothyroxine (Levothyroxine Sodium) 25 Mcg Tab 25 Mcg PO DAILY Amlodipine (Amlodipine Besylate) 10 Mg Tab 10 Mg PO DAILY Tacrolimus 5 Mg Cap 5 Mg PO Q12H Reported Hydralazine HCl 25 Mg Tablet 25 Mg PO TID Take with meals Lipitor (Atorvastatin Calcium) 80 Mg Tab 80 Mg PO EVERY OTHER DAY D 400 (Cholecalciferol) 400 Unit Tab 400 Units PO DAILY Prednisone 10 Mg Tab 10 Mg PO DAILY Humalog Kwikpen Pen Inj (Insulin Lispro (Human) Inj) 300 Unit/3 Ml Pen 0 SQ ACHS Fluticasone Nasal [place] 50 Mcg/Act Naspr 1 [place] EACH NARE BID 50 mcg/spray Magnesium Gluconate 500 Mg Tab 500 Mg PO DAILY Sodium Bicarbonate 650 Mg Tab 1,300 Mg PO BIDPC Mycophenolate (Mycophenolate Mofetil) 500 Mg Tab 500 Mg PO BID Nephrocaps (B-Complex W/ C & Folic Acid) 1 Cap 1 Cap PO DAILY If on dialysis, take after treatment. Active Ordered Medications Current Medications Medications (Trade) Dose Ordered Sig/Yasmany Route Start Time Stop Time Status Last Admin Sodium Chloride 1,000 ml @ 100 mls/hr Q10H IV 09/01/17 14:34 09/01/17 18:24 (NS Flush) 2 ml UNSCH PRN IV FLUSH 09/01/17 14:45 (NS Flush) 2 ml BID IV FLUSH 09/01/17 21:00 (Heparin Inj) 5,000 units Q8HR SQ 09/01/17 22:00 (Narcan Inj) 0.4 mg UNSCH PRN IV PUSH 09/01/17 14:45 Cefepime HCl 2000 mg/Sodium Chloride 100 ml @ 200 mls/hr Q12H IV 09/02/17 00:00 (Tylenol) 650 mg Q4H PRN PO 09/01/17 16:15 Family History Noncontributory Social History Denies smoking or alcohol use Physical Exam Vital Signs Vital Signs Date Time Temp Pulse Resp B/P (MAP) Pulse Ox O2 Delivery O2 Flow Rate FiO2 09/01/17 18:26 90 18 154/97 (116) 95 Nasal Cannula 2.00 09/01/17 17:00 78 16 146/79 (101) 98 Room Air 09/01/17 14:24 16 09/01/17 14:12 88 18 135/77 (96) 96 Nasal Cannula 2.00 09/01/17 12:30 100.8 88 18 170/90 (116) 96 Nasal Cannula 2.00 09/01/17 12:28 88 20 96 Nasal Cannula 3.00 09/01/17 12:28 94 Nasal Cannula 3.00 09/01/17 11:51 97.5 90 22 138/60 (86) 84 Physical Exam GENERAL: Well-nourished, well-developed patient. SKIN: Warm and dry. HEAD: Normocephalic. EYES: No scleral icterus. No injection or drainage. NECK: Supple, trachea midline. No JVD or lymphadenopathy. CARDIOVASCULAR: Regular rate and rhythm without murmurs, gallops, or rubs. RESPIRATORY: Breath sounds diminished at left base GASTROINTESTINAL: Abdomen soft, non-tender, nondistended. EXTREMITIES: No cyanosis, or edema. NEUROLOGICAL: Awake, alert, and oriented x 3. Non-focal. Laboratory Laboratory Tests Test 09/01/17 12:25 09/01/17 12:35 09/01/17 14:00 09/01/17 15:00 White Blood Count 31.3 Red Blood Count 4.38 Hemoglobin 10.5 Hematocrit 33.9 Mean Corpuscular Volume 77.4 Mean Corpuscular Hemoglobin 23.9 Mean Corpuscular Hemoglobin Concent 30.9 Red Cell Distribution Width 15.9 Platelet Count 242 Mean Platelet Volume 8.5 Neutrophils (%) (Auto) 91.6 Lymphocytes (%) (Auto) 2.6 Monocytes (%) (Auto) 5.1 Eosinophils (%) (Auto) 0.0 Basophils (%) (Auto) 0.7 Neutrophils # (Auto) 28.6 Lymphocytes # (Auto) 0.8 Monocytes # (Auto) 1.6 Eosinophils # (Auto) 0.0 Basophils # (Auto) 0.2 CBC Comment AUTO DIFF Differential Total Cells Counted 100 Neutrophils % (Manual) 81 Band Neutrophils % 14 Lymphocytes % 1 Monocytes % 4 Neutrophils # (Manual) 29.7 Differential Comment FINAL DIFF MANUAL Toxic Vacuolation Dohle Bodies PRESENT Platelet Estimate NORMAL Platelet Morphology Comment NORMAL Ovalocytes 1+ Acanthocytes OCC Prothrombin Time 12.0 Prothromb Time International Ratio 1.2 Activated Partial Thromboplast Time 29.2 Blood Urea Nitrogen 77 Creatinine 4.15 Random Glucose 280 Total Protein 5.8 Albumin 2.2 Calcium Level 8.0 Phosphorus Level 3.7 Magnesium Level 1.7 Alkaline Phosphatase 74 Aspartate Amino Transf (AST/SGOT) 19 Alanine Aminotransferase (ALT/SGPT) 17 Total Bilirubin 0.3 Sodium Level 139 Potassium Level 5.3 Chloride Level 111 Carbon Dioxide Level 18.8 Anion Gap 9 Estimat Glomerular Filtration Rate 18 Total Creatine Kinase 399 Creatine Kinase MB 2.4 Creatine Kinase MB % 0.6 Troponin I 0.06 Lipase 47 Lactic Acid Level 1.9 Urine Color LIGHT-YELLOW Urine Turbidity CLEAR Urine pH 6.5 Urine Specific [place] 1.014 Urine Protein 300 Urine Glucose (UA) 150 Urine Ketones NEG Urine Occult Blood SMALL Urine Nitrite NEG Urine Bilirubin NEG Urine Urobilinogen LESS THAN 2.0 Urine Leukocyte Esterase NEG Urine RBC 1 Urine WBC 1 Urine Mucus FEW Microscopic Urinalysis Comment CATH-CULT NOT IND Tacrolimus (Prograf) Level 1.7 Date/Time Source Procedure Growth Status 09/01/17 12:25 Blood Peripheral Aerobic Blood Culture Pending Received 09/01/17 12:25 Blood Peripheral Anaerobic Blood Culture Pending Received 09/01/17 13:15 Nasal Washing Influenza Types A,B Antigen (PARAMJIT) - Final NEGATIVE FOR FLU A AND B ANTIGEN.... Complete Result Diagram: 09/01/17 1225 09/01/17 1225 Imaging Last Impressions Chest X-Ray 09/01/17 1206 Signed Impressions: Service Date/Time: Friday, September 01, 2017 12:32 - CONCLUSION: Lingular and left lower lobe consolidation likely pneumonia. Treatment and followup to resolution.. Kareem Burnham MD Chest CT 09/01/17 0000 Signed Impressions: Service Date/Time: Friday, September 01, 2017 16:45 - CONCLUSION: Dense consolidative changes left lung consistent with inflammatory process. Followup to resolution is suggested. Elvin Linn MD FACR Assessment and Plan Problem List: (1) Renal transplant recipient ICD Codes: Z94.0 - Kidney transplant status Status: Chronic Plan: I evaluated him he has underlying sepsis continue with prednisone, Prograf and CellCept monitor intake and output follow BMP Follow-up potassium level next line monitor tacrolimus level (2) Hypertension ICD Codes: I10 - Essential (primary) hypertension Status: Acute Plan: Continue to monitor (3) PNA (pneumonia) ICD Codes: J18.9 - Pneumonia Status: Acute Plan: On Zosyn and received vancomycin (4) Diabetes mellitus ICD Codes: E11.9 - Type 2 diabetes mellitus without complications Status: Chronic Plan: On insulin Problem Qualifiers (1) Diabetes mellitus: Chito Pereira MD Sep 01, 2017 19:29
[2017-09-01] MEDS: SODIUM CHLORIDE 0.9% FLUSH 10 ML FLUSH IV FLUSH SCH (21:00)
[2017-09-01] MEDS: FLUTICASONE PROPIONATE 50 MCG/ACT 16 GM NASAL SPRAY EACH NARE SCH (22:28)
[2017-09-01] MEDS: TACROLIMUS 5 MG CAP PO SCH (22:29)
[2017-09-01] MEDS: MYCOPHENOLATE MOFETIL 500 MG TAB PO SCH (22:29)
[2017-09-01] MEDS: HEPARIN SODIUM - SQ 10,000 UNITS/ML VIAL SQ SCH (22:29)
[2017-09-02] VITALS (16 sets, daily range): BP systolic 142–166; BP diastolic 78–96; PULSE 81–99; RESP 17–20; TEMP 98.3–99.1; O2SAT 91–95
[2017-09-02] MEDS ORDERED: CEFEPIME INJ 2,000 MG in SODIUM CHLORIDE 0.9% INJ 100 ML IV SCH ×2
[2017-09-02] MEDS: SODIUM CHLOR 0.9% 1000 ML INJ 1,000 ML IV SCH ×3 (00:40→14:29)
[2017-09-02] MEDS: HEPARIN SODIUM - SQ 10,000 UNITS/ML VIAL SQ SCH ×3 (06:00→21:17)
[2017-09-02] MEDS: LEVOTHYROXINE SODIUM 25 MCG TAB PO SCH (06:15)
[2017-09-02 06:34] LABS: AUTOMATED NEUTROPHIL # 22.3 TH/MM3 (1.8-7.7); BASOPHIL % 0.2 % (0.0-2.0); HEMATOCRIT 30.6 % (39.0-51.0); HEMOGLOBIN 9.9 GM/DL (13.0-17.0); LYMPH % 3.3 % (9.0-44.0); LYMPHOCYTE # 0.8 TH/MM3 (1.0-4.8); MEAN CORPUSCULAR HEMOGLOBIN 24.6 PG (27.0-34.0); MEAN CORPUSCULAR HGB CONC 32.3 % (32.0-36.0); MEAN PLATELET VOLUME 8.3 FL (7.0-11.0); MONO % 5.4 % (0.0-8.0); MONOCYTE # 1.3 TH/MM3 (0-0.9); NEUT % 91.1 % (16.0-70.0); PLATELET COUNT 208 TH/MM3 (150-450); RED BLOOD COUNT 4.03 MIL/MM3 (4.50-5.90); RED CELL DISTRIBUTION WIDTH 15.9 % (11.6-17.2); WHITE BLOOD COUNT 24.4 TH/MM3 (4.0-11.0)
[2017-09-02 07:05] LABS: BICARBONATE 17.2 MEQ/L (21.0-32.0); CALCIUM 8.4 MG/DL (8.5-10.1); CREATININE 3.98 MG/DL (0.60-1.30)
[2017-09-02] MEDS ORDERED: INSULIN GLARGINE 20 UNIT SQ SCH (09:00)
[2017-09-02] MEDS: FLUTICASONE PROPIONATE 50 MCG/ACT 16 GM NASAL SPRAY EACH NARE SCH ×2 (09:00→21:18)
[2017-09-02] MEDS ORDERED: NON-FORMULARY DRUG (Metoprolol Succinate ER 24 HR 100 MG) PO SCH (09:00)
[2017-09-02] MEDS: METOPROLOL SUCCINATE 50 MG EXTENDED RELEASE TAB PO SCH (09:49)
[2017-09-02] MEDS: predniSONE 10 MG TAB PO SCH (09:50)
[2017-09-02] MEDS: INSULIN DETEMIR 100 UNITS/ML VIAL SQ SCH (09:51)
[2017-09-02] MEDS: MYCOPHENOLATE MOFETIL 500 MG TAB PO SCH ×2 (10:34→21:17)
[2017-09-02] MEDS: VITAMIN B CMPLX/VITC/FOLIC AC CAP PO SCH (10:34)
[2017-09-02] MEDS: SODIUM BICARBONATE 650 MG TAB PO SCH ×2 (10:34→18:09)
[2017-09-02] MEDS: hydrALAZINE HCL 25 MG TAB PO SCH ×3 (10:34→18:09)
[2017-09-02] MEDS: SODIUM CHLORIDE 0.9% FLUSH 10 ML FLUSH IV FLUSH SCH ×2 (10:35→21:17)
[2017-09-02] MEDS: TACROLIMUS 5 MG CAP PO SCH ×2 (10:35→21:16)
--- NOTE | 2017-09-02 14:51 | HHI.PR ---
Objective Vitals Vital Signs Date Time Temp Pulse Resp B/P (MAP) Pulse Ox O2 Delivery O2 Flow Rate FiO2 09/02/17 13:42 09/02/17 11:57 87 19 148/90 (109) 93 Nasal Cannula 2.00 09/02/17 09:55 99.1 99 19 166/96 (119) 95 Nasal Cannula 2.00 09/02/17 07:27 98 19 161/92 (115) 91 Nasal Cannula 3.00 09/02/17 05:00 88 19 142/92 (109) 94 Nasal Cannula 3.00 09/02/17 03:00 94 20 159/90 (113) 94 Nasal Cannula 3.00 09/02/17 01:00 96 17 147/86 (106) 95 Nasal Cannula 3.00 09/01/17 23:00 102 18 152/89 (110) 94 Nasal Cannula 3.00 09/01/17 21:01 103 22 168/93 (118) 93 Nasal Cannula 3.00 09/01/17 18:26 90 18 154/97 (116) 95 Nasal Cannula 2.00 09/01/17 17:00 78 16 146/79 (101) 98 Room Air I/O 09/01/17 09/01/17 09/01/17 09/02/17 09/02/17 09/02/17 07:00 15:00 23:00 07:00 15:00 23:00 Intake Total 1250 ml 2050 ml Balance 1250 ml 2050 ml Intake IV Total 1250 ml 2050 ml Result Diagram: 09/02/17 0600 09/02/17 0600 A/P Assessment and Plan This is a 56-year-old renal transplant who presented with shortness of breathing and cough Sepsis -Leukocytosis 31,300, fever 100.8, source found on chest x-ray showing left lower lobe pneumonia. -Patient given cefepime and vancomycin in the ED. Cefepime was continued. -He is also given IV fluids. -Consult infectious disease secondary to patient having acute on chronic renal failure and is a renal transplant patient on immunosuppressants. -Leukocytosis has improved. Continue to monitor clinically Left lower lobe pneumonia -Patient on cefepime. He was given 1 dose of vancomycin in the ED. See treatment as above. Acute respiratory failure -Secondary to pneumonia. On oxygen. This should improve the treatment of pneumonia. Will wean oxygen as tolerated. Renal transplant status with acute on chronic renal failure -Nephrology is consulted. -Avoid nephrotoxins. Strict ins and out. Diarrhea Hypertension/type 2 diabetes/TIA/history of CHF -HCTZ/lisinopril and Lasix held secondary to acute on chronic renal failure. -Otherwise home medication resumed. -On insulin sliding scale. Also on Levemir. Hypoglycemic protocol. DVT prophylaxis with heparin. Gia Nava MD Sep 02, 2017 14:50
--- NOTE | 2017-09-02 16:55 | HHI.NPPN ---
Subjective History of Present Illness 56 year old male with Kidney Transplant 2009 admitted with Pneumonia Review of Systems General Constitutional: Fatigue Respiratory Lungs: SOB, Cough Objective Data Data Vital Signs Date Time Temp Pulse Resp B/P (MAP) Pulse Ox O2 Delivery O2 Flow Rate FiO2 09/02/17 15:24 98.7 91 20 155/89 (111) 94 09/02/17 15:24 94 Nasal Cannula 2.00 09/02/17 13:42 09/02/17 11:57 87 19 148/90 (109) 93 Nasal Cannula 2.00 09/02/17 09:55 99.1 99 19 166/96 (119) 95 Nasal Cannula 2.00 09/02/17 07:27 98 19 161/92 (115) 91 Nasal Cannula 3.00 09/02/17 05:00 88 19 142/92 (109) 94 Nasal Cannula 3.00 09/02/17 03:00 94 20 159/90 (113) 94 Nasal Cannula 3.00 09/02/17 01:00 96 17 147/86 (106) 95 Nasal Cannula 3.00 09/01/17 23:00 102 18 152/89 (110) 94 Nasal Cannula 3.00 09/01/17 21:01 103 22 168/93 (118) 93 Nasal Cannula 3.00 09/01/17 18:26 90 18 154/97 (116) 95 Nasal Cannula 2.00 09/01/17 17:00 78 16 146/79 (101) 98 Room Air -: 09/02/17 0600 09/02/17 0600 Physical Exam General Appearance: Well Developed, Well Nourished Neck Neck Exam: Neck Supple Pulmonary Resp Exam: Decreased Bases Cardiology CV Exam: Regular, Normal Sinus Rhythm Gastrointestinal/Abdomen GI Exam: Soft, Non-Tender, Bowel Sounds Present Extremeties Extremities Exam: No Edema Assessment/Plan Problem List: (1) Renal transplant recipient ICD Codes: Z94.0 - Kidney transplant status Status: Chronic Plan: continue with prednisone, Prograf and CellCept monitor intake and output follow BMP Follow-up potassium level decline Cr decline 3.98 Tac level low just retaking his Tac recheck in am (2) Hypertension ICD Codes: I10 - Essential (primary) hypertension Status: Acute Plan: Continue to monitor (3) PNA (pneumonia) ICD Codes: J18.9 - Pneumonia Status: Acute Plan: received vancomycin, Zosyn and now on Cefepime (4) Diabetes mellitus ICD Codes: E11.9 - Type 2 diabetes mellitus without complications Status: Chronic Plan: On insulin Problem Qualifiers (1) Diabetes mellitus: Chito Pereira MD Sep 02, 2017 16:55
[2017-09-02] MEDS ORDERED: GLUCAGON 1 MG/ML VIAL OTHER PRN (17:15)
[2017-09-02] MEDS ORDERED: DEXTROSE 50% IN WATER 50 ML VIAL(D50) IV PUSH PRN (17:15)
[2017-09-02] MEDS: ONDANSETRON ODT 4 MG TAB PO PRN (18:35)
[2017-09-02] MEDS ORDERED: INSULIN ASPART 1,000 UNITS/10 ML VIAL SQ ONE (18:45)
--- NOTE | 2017-09-02 21:18 | MB ---
cc: Benjamin Small MD DATE OF CONSULT: 09/02/2017 REQUESTING PHYSICIAN: Gia Nava MD REASON: A 56-year-old male, renal transplant patient, presented with pneumonia and sepsis. Assist with antibiotic management. Acute/chronic kidney disease. HISTORY OF PRESENT ILLNESS: This is a 56-year-old black male who presented to the emergency department with shortness of breath on 09/01/2017. The patient states that he woke up in the morning and suddenly developed shortness of breath and felt like someone had dropped heavy weight on his chest. He was also complaining of left sided chest pain. The patient was recently treated for influenza in July. He has history of renal transplantation. When he was in the emergency department he had temperature of 100.8 degrees and white count was 31.3 with 81% neutrophils. The creatinine was 4.15 also. He was admitted with sepsis and further evaluation performed included CT scan of the chest that showed dense consolidated change in the left lung consistent with inflammatory process. Chest x-ray shows lingula and left lower lobe consolidation. The patient had temperature of 100.8 degrees on the day of admission. He was started on antibiotics. Influenza test was negative. Blood cultures are pending. The patient states that he is coughing and that he is bringing slight green sputum. He denies nausea or vomiting but notes that he had chills when he presented as well. The patient has been on immunosuppressive medications. PAST MEDICAL HISTORY: Hypertension, diabetes mellitus, congestive heart failure while he was receiving dialysis, TIA, renal transplantation in 04/2009. ALLERGIES: NO KNOWN DRUG ALLERGIES. THE PATIENT IS ALLERGIC PEAS, BEETS, BANANA, TOMATO, LATEX. MEDICATIONS: Cefepime, Norvasc, Nephrocaps, Deltasone, Apresoline, Toprol XL, Synthroid, insulin, subcutaneous heparin, Flonase, CellCept, Prograf. SOCIAL HISTORY: No tobacco, no alcohol, no illicit drugs. FAMILY HISTORY: Coronary artery disease on his dad's side. REVIEW OF SYSTEMS: CONSTITUTIONAL: Significant for fever and chills. HEENT: Denies visual blurring or diplopia. Denies difficulty swallowing. No neck pain. CARDIOVASCULAR: Denies palpitations. RESPIRATORY: Significant for cough and shortness of breath. GASTROINTESTINAL: Denies nausea and vomiting. GENITOURINARY: Denies dysuria. HEMATOPOIETIC: Negative for easy bruising. MUSCULOSKELETAL: Positive for left sided chest wall pain. ENDOCRINE: Negative for polydipsia, polyuria. INTEGUMENTARY: Denies skin rash or itching. NEUROLOGIC: No problems with coordination. PSYCHIATRIC: Normal changes. PHYSICAL EXAMINATION: GENERAL: This is a well-developed male who is in no acute distress. He is awake, alert and oriented. VITAL SIGNS: Temperature 98.7, blood pressure 155/89, respirations 20, heart rate 91. HEENT: The head is atraumatic. Extraocular movements grossly intact, pupils reactive to light. No icterus. Oropharynx moist mucosal without lesions. NECK: Supple without adenopathy. LUNGS: Marked decreased breath sounds with rhonchi at the left base. Slight rhonchi at the right base. HEART: Regular rate and rhythm without murmurs, rubs or gallops. ABDOMEN: Bowel sounds present, soft, no tenderness appreciated. Patient has slight bulge at the right lower abdomen where the kidney transplant is located. No tenderness located there. RECTAL: Not performed. EXTREMITIES: No clubbing, cyanosis or edema. SKIN: No rash. NEUROLOGIC: No gross focal findings. PSYCHIATRIC: The patient is calm and cooperative. LABORATORY DATA: WBC 24.4, 91% neutrophils, platelets 208, hemoglobin 9.9. Creatinine is 3.9, BUN 75, sodium 140. Liver function tests normal. IMPRESSION: 1. Sepsis on presentation. 2. Left lung pneumonia. 3. 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 4. Leukocytosis secondary to infection. 5. Acute on chronic kidney disease. RECOMMENDATIONS: 1. Continue cefepime for now. 2. Obtain sputum culture. I will request that the nurse give the patient a container to keep at the bedside to attempt to require a sputum sample for testing. 3. Monitor white blood cell count. 4. Monitor blood cultures. Thank you for this consultation. I will monitor the patient's progress and make further recommendations upon followup depending on his clinical status and response. Benjamin Small MD FFD/rt , 06:11 PM , 09:16 PM [facility]
--- NOTE | 2017-09-02 21:49 | EKG ---
Date Performed: 09/01/2017 Time Performed: 12:06:43 PTAGE: 56 years EKG: Sinus rhythm SEPTAL MYOCARDIAL INFARCTION T-WAVE ABNORMALITY, CONSIDER ANTEROLATERAL ISCHEMIA ABNORMAL ECG PREVIOUS TRACING : 05/01/2017 09.30 Compared to previous tracing, anterolateral T wave inversio n is now present. DOCTOR: Jeyson Duncan Interpretating Date/Time 09/02/2017 21:48:33
[2017-09-03] VITALS (21 sets, daily range): BP systolic 141–156; BP diastolic 70–92; PULSE 73–87; RESP 18–20; TEMP 97.8–98.5; O2SAT 94–99
[2017-09-03] MEDS: LEVOTHYROXINE SODIUM 25 MCG TAB PO SCH (05:15)
[2017-09-03] MEDS: CEFEPIME INJ 2,000 MG in SODIUM CHLORIDE 0.9% INJ 100 ML IV SCH (05:16)
[2017-09-03] MEDS: HEPARIN SODIUM - SQ 10,000 UNITS/ML VIAL SQ SCH ×3 (05:17→21:10)
[2017-09-03] MEDS: INSULIN ASPART SUPPLEMENTAL SCALE SQ SCH ×4 (08:00→21:10)
[2017-09-03] MEDS: VITAMIN B CMPLX/VITC/FOLIC AC CAP PO SCH (08:44)
[2017-09-03] MEDS: METOPROLOL SUCCINATE 50 MG EXTENDED RELEASE TAB PO SCH (08:44)
[2017-09-03] MEDS: SODIUM BICARBONATE 650 MG TAB PO SCH ×2 (08:45→17:16)
[2017-09-03] MEDS: ATORVASTATIN 80 MG TAB PO SCH (08:45)
[2017-09-03] MEDS: predniSONE 10 MG TAB PO SCH (08:45)
[2017-09-03] MEDS: hydrALAZINE HCL 25 MG TAB PO SCH ×3 (08:45→17:16)
[2017-09-03] MEDS: TACROLIMUS 5 MG CAP PO SCH ×2 (08:45→21:06)
[2017-09-03] MEDS: MYCOPHENOLATE MOFETIL 500 MG TAB PO SCH ×2 (08:45→21:06)
[2017-09-03] MEDS: SODIUM CHLORIDE 0.9% FLUSH 10 ML FLUSH IV FLUSH SCH ×2 (08:46→21:06)
[2017-09-03] MEDS: INSULIN DETEMIR 100 UNITS/ML VIAL SQ SCH (08:47)
[2017-09-03] MEDS: FLUTICASONE PROPIONATE 50 MCG/ACT 16 GM NASAL SPRAY EACH NARE SCH ×2 (08:53→21:00)
[2017-09-03 09:49] LABS: HEMATOCRIT 31.1 % (39.0-51.0); HEMOGLOBIN 9.9 GM/DL (13.0-17.0); MEAN CELL VOLUME 76.4 FL (80.0-100.0); MEAN CORPUSCULAR HEMOGLOBIN 24.3 PG (27.0-34.0); MEAN CORPUSCULAR HGB CONC 31.7 % (32.0-36.0); MEAN PLATELET VOLUME 8.8 FL (7.0-11.0); PLATELET COUNT 210 TH/MM3 (150-450); RED BLOOD COUNT 4.07 MIL/MM3 (4.50-5.90); RED CELL DISTRIBUTION WIDTH 15.8 % (11.6-17.2)
[2017-09-03 10:23] LABS: BICARBONATE 17.4 MEQ/L (21.0-32.0); CALCIUM 8.9 MG/DL (8.5-10.1); CREATININE 3.51 MG/DL (0.60-1.30)
--- NOTE | 2017-09-03 10:40 | HHI.PR ---
Subjective Remarks Follow-up for pneumonia, sepsis, acute renal failure Patient stated he feels a lot better. He said he feels congested but cannot cough any sputum out. He has been afebrile. He has no complaints. Objective Vitals Vital Signs Date Time Temp Pulse Resp B/P (MAP) Pulse Ox O2 Delivery O2 Flow Rate FiO2 09/03/17 06:00 81 09/03/17 05:00 85 09/03/17 04:00 83 09/03/17 03:00 94 Nasal Cannula 2.00 09/03/17 03:00 73 09/03/17 03:00 98.0 73 20 145/70 (95) 94 09/03/17 02:00 78 09/03/17 01:00 74 09/03/17 00:00 83 09/02/17 23:00 98.6 87 20 152/80 (104) 94 09/02/17 23:00 87 09/02/17 23:00 95 Nasal Cannula 2.00 09/02/17 22:00 92 09/02/17 21:00 81 09/02/17 20:00 82 09/02/17 19:00 95 Nasal Cannula 2.00 09/02/17 19:00 98.3 82 20 148/78 (101) 95 09/02/17 19:00 85 09/02/17 18:00 82 09/02/17 17:00 84 09/02/17 16:00 86 09/02/17 15:24 98.7 91 20 155/89 (111) 94 09/02/17 15:24 94 Nasal Cannula 2.00 09/02/17 15:00 91 09/02/17 13:42 09/02/17 11:57 87 19 148/90 (109) 93 Nasal Cannula 2.00 I/O 09/02/17 09/02/17 09/02/17 09/03/17 09/03/17 09/03/17 07:00 15:00 23:00 07:00 15:00 23:00 Intake Total 420 ml 850 ml Output Total 400 ml 1101 ml Balance 20 ml -251 ml Intake Oral 420 ml 750 ml IV Total 100 ml Output Urine Total 400 ml 1100 ml Stool Total 1 ml Result Diagram: 09/03/17 0850 09/03/17 0850 Objective Remarks GENERAL: in NAD CARDIOVASCULAR: Regular rate and rhythm without murmurs, gallops, or rubs. RESPIRATORY: Breath sounds equal bilaterally. No accessory muscle use. GASTROINTESTINAL: Abdomen soft, non-tender, nondistended. MUSCULOSKELETAL: No cyanosis, or edema. BACK: Nontender without obvious deformity. No CVA tenderness. Medications and IVs Current Medications Acetaminophen (Tylenol) 650 mg ONCE ONCE PO Last administered on 09/01/17 13: 14; Start 09/01/17 at 12:15; Stop 09/01/17 at 12:16; Status DC Sodium Chloride 1,000 ml @ 999 mls/hr BOLUS ONCE IV Last administered on at 13:12; Start 09/01/17 at 12:15; Stop 09/01/17 at 13:15; Status DC Levofloxacin/ Dextrose 100 ml @ 100 mls/hr ONCE ONCE IV ; Start 09/01/17 at 12: 15; Stop 09/01/17 at 12:34; Status DC Vancomycin HCl 1000 mg/Sodium Chloride 250 ml @ 250 mls/hr ONCE ONCE IV Last administered on 09/01/17at 13:13; Start 09/01/17 at 12:45; Stop 09/01/17 at 13:44; Status DC Piperacillin Sod/ Tazobactam Sod 50 ml @ 100 mls/hr ONCE ONCE IV Last administered on 09/01/17 14:24; Start 09/01/17 at 12:45; Stop 09/01/17 at 13:14; Status DC Sodium Chloride 1,000 ml @ 999 mls/hr BOLUS ONCE IV Last administered on 14:24; Start 09/01/17 at 14:00; Stop 09/01/17 at 15:16; Status DC Sodium Chloride 1,000 ml @ 999 mls/hr BOLUS ONCE IV Last administered on at 17:40; Start 09/01/17 at 14:00; Stop 09/01/17 at 15:16; Status DC Sodium Chloride 1,000 ml @ 100 mls/hr Q10H IV Last administered on 09/02/17at 14 :29; Start 09/01/17 at 14:34 Sodium Chloride (NS Flush) 2 ml UNSCH PRN IV FLUSH FLUSH AFTER USING IV ACCESS ; Start 09/01/17 at 14:45 Sodium Chloride (NS Flush) 2 ml BID IV FLUSH Last administered on 09/03/17at 08: 46; Start 09/01/17 at 21:00 Heparin Sodium (Porcine) (Heparin Inj) 5,000 units Q8HR SQ ; Start 09/01/17 at 22 :00 Naloxone HCl (Narcan Inj) 0.4 mg UNSCH PRN IV PUSH SEE LABEL COMMENTS; Start at 14:45 Cefepime HCl 2000 mg/Sodium Chloride 100 ml @ 200 mls/hr Q12H IV Last administered on 09/02/17at 00:01; Start 09/02/17 at 00:00; Stop 09/02/17 at 08:29; Status DC Acetaminophen (Tylenol) 650 mg Q4H PRN PO fever >101; Start 09/01/17 at 16:15 Amlodipine Besylate (Norvasc) 10 mg DAILY PO Last administered on 09/03/17 08: 45; Start 09/02/17 at 09:00 Atorvastatin Calcium (Lipitor) 80 mg EVERY OTHER DAY PO Last administered on 08:45; Start 09/03/17 at 09:00 Vitamin B Complex/ Vit C/Folic Acid (Nephrocaps) 1 cap DAILY PO Last administered on 09/03/17 08:44; Start 09/02/17 at 09:00 Fluticasone Propionate (Flonase Sergio Spr) 1 spray BID EACH NARE Last administered on 09/03/17 08:53; Start 09/01/17 at 21:00 Hydralazine HCl (Apresoline) 25 mg TID PO Last administered on 09/03/17 08:45; Start 09/02/17 at 09:00 Levothyroxine Sodium (Synthroid) 25 mcg DAILY@0600 PO Last administered on 05:15; Start 09/02/17 at 06:00 Mycophenolate Mofetil (Cellcept) 500 mg BID PO Last administered on 09/03/17 08 :45; Start 09/01/17 at 21:00 Pantoprazole Sodium (Protonix) 20 mg DAILY PRN PO REFLUX; Start 09/01/17 at 19: 15 Prednisone (Deltasone) 10 mg DAILY PO Last administered on 09/03/17at 08:45; Start 09/02/17 at 09:00 Sodium Bicarbonate (Sodium Bicarbonate) 1,300 mg BIDPC PO Last administered on 09/03/17 08:45; Start 09/02/17 at 09:00 Tacrolimus (Prograf) 5 mg Q12H PO Last administered on 09/03/17 08:45; Start at 21:00 Non-Formulary Medication 20 units DAILY SQ ; Start 09/02/17 at 09:00; Status UNV Non-Formulary Medication 100 mg DAILY PO ; Start 09/02/17 at 09:00; Status UNV Non-Formulary Medication 4 mg Q12HR PRN PO NAUSEA OR VOMITING; Start 09/01/17 at 19:15; Status UNV Metoprolol Succinate (Toprol Xl) 100 mg DAILY PO Last administered on 09/03/17 08:44; Start 09/02/17 at 09:00 Ondansetron HCl (Zofran Odt) 4 mg Q12H PRN PO NAUSEA/VOMITING Last administered on 09/02/17 18:35; Start 09/01/17 at 22:00 Insulin Detemir (Levemir Inj) 20 units DAILY SQ Last administered on 09/03/17 08:47; Start 09/02/17 at 09:00 Cefepime HCl 2000 mg/Sodium Chloride 100 ml @ 200 mls/hr DAILY@0600 IV Last administered on 09/03/17at 05:16; Start 09/03/17 at 06:00 Insulin Aspart (NovoLOG SUPPLEMENTAL SCALE) 1 ACHS SLIDING SCALE SQ ; Start 09/02/17 at 21:00 Dextrose (D50w (Vial) Inj) 50 ml UNSCH PRN IV PUSH HYPOGLYCEMIA-SEE COMMENTS; Start 09/02/17 at 17:15 Glucagon (Glucagon Inj) 1 mg UNSCH PRN OTHER HYPOGLYCEMIA-SEE COMMENTS; Start 09/02/17 at 17:15 Insulin Aspart (NovoLOG INJ) 7 units ONCE ONCE SQ Last administered on at 18:45; Start 09/02/17 at 18:45; Stop 09/02/17 at 18:46; Status DC A/P Assessment and Plan This is a 56-year-old renal transplant who presented with shortness of breathing and cough Sepsis, improving -Leukocytosis 31,300, fever 100.8, source found on chest x-ray showing left lower lobe pneumonia. -Patient given cefepime and vancomycin in the ED. Cefepime was continued. -He is also given IV fluids. -Infectious disease consulted following. Stated continue with cefepime and to obtain sputum culture. Patient unable to get a sputum culture yet. Left lower lobe pneumonia/improving -Patient on cefepime. He was given 1 dose of vancomycin in the ED. See treatment as above. Acute respiratory failure, improving -Secondary to pneumonia. On oxygen. This should improve the treatment of pneumonia. Will wean oxygen as tolerated. Renal transplant status with acute on chronic renal failure -Nephrology is consulted. -Avoid nephrotoxins. Strict ins and out. Hypertension/type 2 diabetes/TIA/history of CHF -HCTZ/lisinopril and Lasix held secondary to acute on chronic renal failure. -Otherwise home medication resumed. -On insulin sliding scale. Also on Levemir. Hypoglycemic protocol. DVT prophylaxis with heparin. Discharge Planning Patient clinically is improving but will require at least a few more days of IV antibiotics secondary to the severity of his pneumonia, renal failure, and his immunocompromise status being a renal transplant. Gia Nava MD Sep 03, 2017 10:40
[2017-09-03] MEDS: ONDANSETRON ODT 4 MG TAB PO PRN (13:01)
--- NOTE | 2017-09-03 17:11 | HHI.NPPN ---
Subjective History of Present Illness 56 year old male with Kidney Transplant 2009 admitted with Pneumonia Review of Systems General Constitutional: Fatigue Respiratory Lungs: SOB, Cough Objective Data Data Vital Signs Date Time Temp Pulse Resp B/P (MAP) Pulse Ox O2 Delivery O2 Flow Rate FiO2 09/03/17 15:00 95 Nasal Cannula 2.00 09/03/17 15:00 98.4 81 18 151/75 (100) 95 09/03/17 15:00 81 09/03/17 14:00 83 09/03/17 13:00 82 09/03/17 12:00 82 09/03/17 11:00 84 09/03/17 11:00 98.3 79 20 147/82 (103) 98 09/03/17 11:00 98 Nasal Cannula 2.00 09/03/17 10:00 82 09/03/17 09:00 80 09/03/17 08:00 80 09/03/17 07:00 94 Nasal Cannula 2.00 09/03/17 07:00 98.1 81 20 156/92 (113) 94 09/03/17 07:00 81 09/03/17 06:00 81 09/03/17 05:00 85 09/03/17 04:00 83 09/03/17 03:00 94 Nasal Cannula 2.00 09/03/17 03:00 73 09/03/17 03:00 98.0 73 20 145/70 (95) 94 09/03/17 02:00 78 09/03/17 01:00 74 09/03/17 00:00 83 09/02/17 23:00 98.6 87 20 152/80 (104) 94 09/02/17 23:00 87 09/02/17 23:00 95 Nasal Cannula 2.00 09/02/17 22:00 92 09/02/17 21:00 81 09/02/17 20:00 82 09/02/17 19:00 95 Nasal Cannula 2.00 09/02/17 19:00 98.3 82 20 148/78 (101) 95 09/02/17 19:00 85 09/02/17 18:00 82 -: 09/03/17 0850 09/03/17 0850 Physical Exam General Appearance: Well Developed, Well Nourished Neck Neck Exam: Neck Supple Pulmonary Resp Exam: Decreased Bases Cardiology CV Exam: Regular, Normal Sinus Rhythm Gastrointestinal/Abdomen GI Exam: Soft, Non-Tender, Bowel Sounds Present Extremeties Extremities Exam: No Edema Assessment/Plan Problem List: (1) Renal transplant recipient ICD Codes: Z94.0 - Kidney transplant status Status: Chronic Plan: continue with prednisone, Prograf and CellCept monitor intake and output follow BMP Follow-up potassium level decline Cr decline 3.5 Tac level better at 3.7 late draw check again in am (2) Hypertension ICD Codes: I10 - Essential (primary) hypertension Status: Acute Plan: Continue to monitor (3) PNA (pneumonia) ICD Codes: J18.9 - Pneumonia Status: Acute Plan: received vancomycin, Zosyn and now on Cefepime (4) Diabetes mellitus ICD Codes: E11.9 - Type 2 diabetes mellitus without complications Status: Chronic Plan: On insulin Problem Qualifiers (1) Diabetes mellitus: Chito Pereira MD Sep 03, 2017 17:11
--- NOTE | 2017-09-03 17:14 | HHI.IDPN ---
Note Infectious Disease Note Patient states that he feels cold. Notes that he feels a little better. He denies chills. Continues to have cough. Producing light forbes sputum. Afebrile. White blood cell count improving. Is a 56-year-old black male who presented to the emergency department with shortness of breath on 09/01/2017. The patient states that he woke up in the morning and suddenly developed shortness of breath and felt like someone had dropped heavy weight on his chest. He was also complaining of left sided chest pain. The patient was recently treated for influenza in July. PAST MEDICAL HISTORY: Hypertension, diabetes mellitus, congestive heart failure while he was receiving dialysis, TIA, renal transplantation in 04/2009. ALLERGIES: NO KNOWN DRUG ALLERGIES. THE PATIENT IS ALLERGIC PEAS, BEETS, BANANA, TOMATO, LATEX. MEDICATIONS: Current Medications Medications (Trade) Dose Ordered Sig/Yasmany Route PRN Reason Start Time Stop Time Status Last Admin Dose Admin Sodium Chloride 1,000 ml @ 100 mls/hr Q10H IV 09/01/17 14:34 09/02/17 14:29 Sodium Chloride (NS Flush) 2 ml UNSCH PRN IV FLUSH FLUSH AFTER USING IV ACCESS 09/01/17 14:45 Sodium Chloride (NS Flush) 2 ml BID IV FLUSH 09/01/17 21:00 09/03/17 08:46 Heparin Sodium (Porcine) (Heparin Inj) 5,000 units Q8HR SQ 09/01/17 22:00 Naloxone HCl (Narcan Inj) 0.4 mg UNSCH PRN IV PUSH SEE LABEL COMMENTS 09/01/17 14:45 Acetaminophen (Tylenol) 650 mg Q4H PRN PO fever >101 09/01/17 16:15 Amlodipine Besylate (Norvasc) 10 mg DAILY PO 09/02/17 09:00 09/03/17 08:45 Atorvastatin Calcium (Lipitor) 80 mg EVERY OTHER DAY PO 09/03/17 09:00 09/03/17 08:45 Vitamin B Complex/ Vit C/Folic Acid (Nephrocaps) 1 cap DAILY PO 09/02/17 09:00 09/03/17 08:44 Fluticasone Propionate (Flonase Sergio Spr) 1 spray BID EACH NARE 09/01/17 21:00 09/03/17 08:53 Hydralazine HCl (Apresoline) 25 mg TID PO 09/02/17 09:00 09/03/17 13:01 Levothyroxine Sodium (Synthroid) 25 mcg DAILY@0600 PO 09/02/17 06:00 09/03/17 05:15 Mycophenolate Mofetil (Cellcept) 500 mg BID PO 09/01/17 21:00 09/03/17 08:45 Pantoprazole Sodium (Protonix) 20 mg DAILY PRN PO REFLUX 09/01/17 19:15 Prednisone (Deltasone) 10 mg DAILY PO 09/02/17 09:00 09/03/17 08:45 Sodium Bicarbonate (Sodium Bicarbonate) 1,300 mg BIDPC PO 09/02/17 09:00 09/03/17 08:45 Tacrolimus (Prograf) 5 mg Q12H PO 09/01/17 21:00 09/03/17 08:45 Metoprolol Succinate (Toprol Xl) 100 mg DAILY PO 09/02/17 09:00 09/03/17 08:44 Ondansetron HCl (Zofran Odt) 4 mg Q12H PRN PO NAUSEA/VOMITING 09/01/17 22:00 09/03/17 13:01 Insulin Detemir (Levemir Inj) 20 units DAILY SQ 09/02/17 09:00 09/03/17 08:47 Cefepime HCl 2000 mg/Sodium Chloride 100 ml @ 200 mls/hr DAILY@0600 IV 09/03/17 06:00 09/03/17 05:16 Insulin Aspart (NovoLOG SUPPLEMENTAL SCALE) 1 ACHS SLIDING SCALE SQ 09/02/17 21:00 09/03/17 13:06 Dextrose (D50w (Vial) Inj) 50 ml UNSCH PRN IV PUSH HYPOGLYCEMIA-SEE COMMENTS 09/02/17 17:15 Glucagon (Glucagon Inj) 1 mg UNSCH PRN OTHER HYPOGLYCEMIA-SEE COMMENTS 09/02/17 17:15 OBJECTIVE: Vital Signs Date Time Temp Pulse Resp B/P (MAP) Pulse Ox O2 Delivery O2 Flow Rate FiO2 09/03/17 15:00 95 Nasal Cannula 2.00 09/03/17 15:00 98.4 81 18 151/75 (100) 95 09/03/17 15:00 81 09/03/17 14:00 83 09/03/17 13:00 82 09/03/17 12:00 82 09/03/17 11:00 84 09/03/17 11:00 98.3 79 20 147/82 (103) 98 09/03/17 11:00 98 Nasal Cannula 2.00 09/03/17 10:00 82 09/03/17 09:00 80 09/03/17 08:00 80 09/03/17 07:00 94 Nasal Cannula 2.00 09/03/17 07:00 98.1 81 20 156/92 (113) 94 09/03/17 07:00 81 09/03/17 06:00 81 09/03/17 05:00 85 09/03/17 04:00 83 09/03/17 03:00 94 Nasal Cannula 2.00 09/03/17 03:00 73 09/03/17 03:00 98.0 73 20 145/70 (95) 94 09/03/17 02:00 78 09/03/17 01:00 74 09/03/17 00:00 83 09/02/17 23:00 98.6 87 20 152/80 (104) 94 09/02/17 23:00 87 09/02/17 23:00 95 Nasal Cannula 2.00 09/02/17 22:00 92 09/02/17 21:00 81 09/02/17 20:00 82 09/02/17 19:00 95 Nasal Cannula 2.00 09/02/17 19:00 98.3 82 20 148/78 (101) 95 09/02/17 19:00 85 09/02/17 18:00 82 Laboratory Tests Test 09/02/17 06:00 09/03/17 08:50 White Blood Count 24.4 TH/MM3 19.0 TH/MM3 Red Blood Count 4.03 MIL/MM3 4.07 MIL/MM3 Hemoglobin 9.9 GM/DL 9.9 GM/DL Hematocrit 30.6 % 31.1 % Mean Corpuscular Volume 76.0 FL 76.4 FL Mean Corpuscular Hemoglobin 24.6 PG 24.3 PG Mean Corpuscular Hemoglobin Concent 32.3 % 31.7 % Red Cell Distribution Width 15.9 % 15.8 % Platelet Count 208 TH/MM3 210 TH/MM3 Mean Platelet Volume 8.3 FL 8.8 FL Neutrophils (%) (Auto) 91.1 % Lymphocytes (%) (Auto) 3.3 % Monocytes (%) (Auto) 5.4 % Eosinophils (%) (Auto) 0.0 % Basophils (%) (Auto) 0.2 % Neutrophils # (Auto) 22.3 TH/MM3 Lymphocytes # (Auto) 0.8 TH/MM3 Monocytes # (Auto) 1.3 TH/MM3 Eosinophils # (Auto) 0.0 TH/MM3 Basophils # (Auto) 0.0 TH/MM3 CBC Comment DIFF FINAL Differential Comment Laboratory Tests Test 09/02/17 06:00 09/03/17 08:50 Blood Urea Nitrogen 75 MG/DL 66 MG/DL Creatinine 3.98 MG/DL 3.51 MG/DL Random Glucose 229 MG/DL 98 MG/DL Calcium Level 8.4 MG/DL 8.9 MG/DL Sodium Level 140 MEQ/L 141 MEQ/L Potassium Level 5.1 MEQ/L 4.7 MEQ/L Chloride Level 112 MEQ/L 114 MEQ/L Carbon Dioxide Level 17.2 MEQ/L 17.4 MEQ/L Anion Gap 11 MEQ/L 10 MEQ/L Estimat Glomerular Filtration Rate 19 ML/MIN 22 ML/MIN Microbiology Date/Time Source Procedure Growth Status 09/01/17 12:25 Blood Peripheral Aerobic Blood Culture - Preliminary NO GROWTH IN 2 DAYS Resulted 09/01/17 12:25 Blood Peripheral Anaerobic Blood Culture - Preliminary NO GROWTH IN 2 DAYS Resulted 09/01/17 12:10 Blood Peripheral Aerobic Blood Culture - Preliminary NO GROWTH IN 2 DAYS Resulted 09/01/17 12:10 Blood Peripheral Anaerobic Blood Culture - Preliminary NO GROWTH IN 2 DAYS Resulted 09/01/17 13:15 Nasal Washing Influenza Types A,B Antigen (PARAMJIT) - Final NEGATIVE FOR FLU A AND B ANTIGEN.... Complete IMAGING: Chest X-Ray 09/01/17 1206 Signed Impressions: Service Date/Time: Friday, September 01, 2017 12:32 - CONCLUSION: Lingular and left lower lobe consolidation likely pneumonia. Treatment and followup to resolution.. Kareem Burnham MD Chest CT 09/01/17 0000 Signed Impressions: Service Date/Time: Friday, September 01, 2017 16:45 - CONCLUSION: Dense consolidative changes left lung consistent with inflammatory process. Followup to resolution is suggested. Elvin Linn MD FACR PHYSICAL EXAMINATION: GENERAL: No acute distress. He is awake, alert and oriented. HEENT: The head is atraumatic. Extraocular movements grossly intact, pupils reactive to light. No icterus. Oropharynx moist mucosal without lesions. NECK: Supple without adenopathy. LUNGS: Rhonchi at the left base. Slight rhonchi at the right base. HEART: Regular rate and rhythm without murmurs, rubs or gallops. ABDOMEN: Bowel sounds present, soft, no tenderness appreciated. Patient has slight bulge at the right lower abdomen where the kidney transplant is located. No tenderness located there. EXTREMITIES: No clubbing, cyanosis or edema. SKIN: No rash. NEUROLOGIC: No gross focal findings. PSYCHIATRIC: Calm and cooperative. IMPRESSION: 1. Sepsis on presentation. 2. Left lung pneumonia. 3. 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 4. Leukocytosis secondary to infection. WBC decreasing. 5. Acute on chronic kidney disease. RECOMMENDATIONS: 1. Continue Cefepime. 2. Obtain sputum culture. I will request that the nurse give the patient a container to keep at the bedside to attempt to require a sputum sample for testing. 3. Monitor white blood cell count. 4. Monitor blood cultures. Benjamin Small MD Sep 03, 2017 17:14
[2017-09-03] MEDS: SODIUM CHLOR 0.9% 1000 ML INJ 1,000 ML IV SCH (17:29)
[2017-09-04] VITALS (10 sets, daily range): BP systolic 139–161; BP diastolic 75–87; PULSE 68–83; RESP 18–20; TEMP 98.1–98.7; O2SAT 94–98
[2017-09-04] MEDS: HEPARIN SODIUM - SQ 10,000 UNITS/ML VIAL SQ SCH ×3 (02:22→21:37)
[2017-09-04] MEDS: SODIUM CHLOR 0.9% 1000 ML INJ 1,000 ML IV SCH ×3 (06:10→21:38)
[2017-09-04] MEDS: LEVOTHYROXINE SODIUM 25 MCG TAB PO SCH (06:23)
[2017-09-04] MEDS: CEFEPIME INJ 2,000 MG in SODIUM CHLORIDE 0.9% INJ 100 ML IV SCH (06:24)
[2017-09-04] MEDS: INSULIN ASPART SUPPLEMENTAL SCALE SQ SCH ×4 (08:00→20:26)
[2017-09-04 08:11] LABS: HEMATOCRIT 28.8 % (39.0-51.0); HEMOGLOBIN 9.1 GM/DL (13.0-17.0); MEAN CELL VOLUME 76.5 FL (80.0-100.0); MEAN CORPUSCULAR HEMOGLOBIN 24.2 PG (27.0-34.0); MEAN CORPUSCULAR HGB CONC 31.7 % (32.0-36.0); MEAN PLATELET VOLUME 8.7 FL (7.0-11.0); PLATELET COUNT 230 TH/MM3 (150-450); RED BLOOD COUNT 3.76 MIL/MM3 (4.50-5.90); RED CELL DISTRIBUTION WIDTH 15.7 % (11.6-17.2); WHITE BLOOD COUNT 13.1 TH/MM3 (4.0-11.0)
[2017-09-04 08:34] LABS: BICARBONATE 19.6 MEQ/L (21.0-32.0); CALCIUM 8.5 MG/DL (8.5-10.1); CREATININE 3.57 MG/DL (0.60-1.30)
[2017-09-04] MEDS: SODIUM BICARBONATE 650 MG TAB PO SCH ×2 (08:37→17:41)
[2017-09-04] MEDS: FLUTICASONE PROPIONATE 50 MCG/ACT 16 GM NASAL SPRAY EACH NARE SCH ×2 (08:37→20:27)
[2017-09-04] MEDS: predniSONE 10 MG TAB PO SCH (08:38)
[2017-09-04] MEDS: hydrALAZINE HCL 25 MG TAB PO SCH ×3 (08:38→17:41)
[2017-09-04] MEDS: TACROLIMUS 5 MG CAP PO SCH ×2 (08:38→20:26)
[2017-09-04] MEDS: METOPROLOL SUCCINATE 50 MG EXTENDED RELEASE TAB PO SCH (08:38)
[2017-09-04] MEDS: SODIUM CHLORIDE 0.9% FLUSH 10 ML FLUSH IV FLUSH SCH ×2 (08:39→20:27)
[2017-09-04] MEDS: INSULIN DETEMIR 100 UNITS/ML VIAL SQ SCH (08:40)
[2017-09-04] MEDS: VITAMIN B CMPLX/VITC/FOLIC AC CAP PO SCH (08:40)
[2017-09-04] MEDS: MYCOPHENOLATE MOFETIL 500 MG TAB PO SCH ×2 (09:41→20:26)
--- NOTE | 2017-09-04 09:51 | HHI.PR ---
Subjective Remarks Nursing denies any deterioration since last night. Patient himself says he feels even better than yesterday. Denies having any significant smoking history. Denies ever needing home oxygen in the past. Objective Vital Signs Date Time Temp Pulse Resp B/P (MAP) Pulse Ox O2 Delivery O2 Flow Rate FiO2 09/04/17 08:00 98.7 70 18 151/83 (105) 94 09/04/17 04:00 98.4 74 20 161/87 (111) 95 09/04/17 04:00 72 09/04/17 00:00 98.6 70 18 139/75 (96) 98 09/04/17 00:00 68 09/03/17 22:07 98.5 74 18 141/81 (101) 96 09/03/17 22:00 74 09/03/17 22:00 Nasal Cannula 2.00 09/03/17 19:00 77 09/03/17 19:00 97.8 75 18 145/80 (101) 99 09/03/17 19:00 99 Nasal Cannula 2.00 09/03/17 18:00 80 09/03/17 16:00 87 09/03/17 15:00 95 Nasal Cannula 2.00 09/03/17 15:00 98.4 81 18 151/75 (100) 95 09/03/17 15:00 81 09/03/17 14:00 83 09/03/17 13:00 82 09/03/17 12:00 82 09/03/17 11:00 84 09/03/17 11:00 98.3 79 20 147/82 (103) 98 09/03/17 11:00 98 Nasal Cannula 2.00 09/03/17 10:00 82 I/O 09/03/17 09/03/17 09/03/17 09/04/17 09/04/17 09/04/17 07:00 15:00 23:00 07:00 15:00 23:00 Intake Total 850 ml 2300 ml 1000 ml Output Total 1101 ml 1200 ml Balance -251 ml 1100 ml 1000 ml Intake Oral 750 ml 1300 ml IV Total 100 ml 1000 ml 1000 ml Output Urine Total 1100 ml 1200 ml Stool Total 1 ml 0 ml # Voids 3 Result Diagram: 09/04/1772309/04/17723 Objective Remarks Clear lungs bilaterally, unlabored breathing, on nasal cannula, no conversive dyspnea number no acute distress A/P Assessment and Plan Assessment and Plan This is a 56-year-old renal transplant who presented with shortness of breathing and cough Sepsis component resolved Acute respiratory failure, improving -Secondary to pneumonia. On oxygen. This should improve the treatment of pneumonia. Will wean oxygen as tolerated. LLL PNA - cefepime continued Renal transplant status with acute on chronic renal failure -Nephrology following, monitoring tacrolimus levels -Avoid nephrotoxins. Strict ins and out. Hypertension/type 2 diabetes/TIA/history of CHF -HCTZ/lisinopril and Lasix held secondary to acute on chronic renal failure. -Otherwise home medication resumed. -On insulin sliding scale. Also on Levemir. Hypoglycemic protocol. DVT prophylaxis with heparin. Discharge Planning Patient clinically is improving but will require at least a few more days of IV antibiotics secondary to the severity of his pneumonia, renal failure, and his immunocompromise status being a renal transplant. Plan is also to wean pt off of O2 if possible. Jarod Pina MD Sep 04, 2017 09:51
[2017-09-04] MEDS ORDERED: RESP: ACETYLCYSTEINE 10% 10 ML NEB NEB PRN (10:00)
--- NOTE | 2017-09-04 11:34 | HHI.NPPN ---
Subjective Renal Failure: Acute History of Present Illness 56 year old male with Kidney Transplant 2009 admitted with Pneumonia Additional Remarks Cough present. Denies any SOB. No Edema (Chelle Hernandez) Review of Systems General Constitutional: Fatigue (Chelle Hernandez) Respiratory Lungs: Cough (Chelle Hernandez) Objective Data Data Vital Signs Date Time Temp Pulse Resp B/P (MAP) Pulse Ox O2 Delivery O2 Flow Rate FiO2 09/04/17 11:21 Nasal Cannula 1.00 09/04/17 08:30 Nasal Cannula 2.00 09/04/17 08:00 98.7 70 18 151/83 (105) 94 09/04/17 04:00 98.4 74 20 161/87 (111) 95 09/04/17 04:00 72 09/04/17 00:00 98.6 70 18 139/75 (96) 98 09/04/17 00:00 68 09/03/17 22:07 98.5 74 18 141/81 (101) 96 09/03/17 22:00 74 09/03/17 22:00 Nasal Cannula 2.00 09/03/17 19:00 77 09/03/17 19:00 97.8 75 18 145/80 (101) 99 09/03/17 19:00 99 Nasal Cannula 2.00 09/03/17 18:00 80 09/03/17 16:00 87 09/03/17 15:00 95 Nasal Cannula 2.00 09/03/17 15:00 98.4 81 18 151/75 (100) 95 09/03/17 15:00 81 09/03/17 14:00 83 09/03/17 13:00 82 09/03/17 12:00 82 (Chelle Hernandez) -: 09/04/17 0724 09/04/17 0724 Microbiology 09/04/17 Cryptosporidium Exam, Received Pending 09/04/17 Giardia Antigen (PARAMJIT), Received Pending 09/04/17 , Received Pending Imaging Last Impressions Chest X-Ray 09/01/17 1206 Signed Impressions: Service Date/Time: Friday, September 01, 2017 12:32 - CONCLUSION: Lingular and left lower lobe consolidation likely pneumonia. Treatment and followup to resolution.. Kareem Burnham MD Chest CT 09/01/17 0000 Signed Impressions: Service Date/Time: Friday, September 01, 2017 16:45 - CONCLUSION: Dense consolidative changes left lung consistent with inflammatory process. Followup to resolution is suggested. Elvin Linn MD FACR (GellerArpita lazone [employer]) Physical Exam General Appearance: Well Developed, Well Nourished (GellermannArpitaChelle M. [employer]) Neck Neck Exam: Neck Supple (GellermannChelle M[employer]) Pulmonary Resp Exam: Rhonchi, Decreased Bases (GellermannArpitaChelle M. [employer]) Cardiology CV Exam: Regular, Normal Sinus Rhythm (GellermannArpitaChelle M[employer]) Gastrointestinal/Abdomen GI Exam: Soft, Non-Tender, Bowel Sounds Present (GellermannArpitaChelle M[employer]) Extremeties Extremities Exam: No Edema (GellercliftonChelle M. [employer]) Assessment/Plan Problem List: (1) Renal transplant recipient ICD Codes: Z94.0 - Kidney transplant status Status: Chronic Plan: On prednisone, Prograf and CellCept Potassium WNL Cr at 3.57 Tac level better at 3.7 yesterday pending Will follow UOP and BMP (2) Hypertension ICD Codes: I10 - Essential (primary) hypertension Status: Acute Plan: Continue to monitor (3) PNA (pneumonia) ICD Codes: J18.9 - Pneumonia Status: Acute Plan: received vancomycin, Zosyn and now on Cefepime (4) Diabetes mellitus ICD Codes: E11.9 - Type 2 diabetes mellitus without complications Status: Chronic Plan: On insulin (GellermannArpitaChelle M[employer]) Problem List: (1) Renal transplant recipient ICD Codes: Z94.0 - Kidney transplant status Status: Chronic Plan: On prednisone, Prograf and CellCept Potassium WNL Cr at 3.57 Tac level better at 3.7 yesterday pending Will follow UOP and BMP. Patient seen and examine, agree with above. Creatinine is stable, follow the Prograf level and BMP. (2) Hypertension ICD Codes: I10 - Essential (primary) hypertension Status: Acute Plan: Continue to monitor (3) PNA (pneumonia) ICD Codes: J18.9 - Pneumonia Status: Acute Plan: received vancomycin, Zosyn and now on Cefepime (4) Diabetes mellitus ICD Codes: E11.9 - Type 2 diabetes mellitus without complications Status: Chronic Plan: On insulin (Lashawn Sanchez MD) Problem Qualifiers (1) Diabetes mellitus: Chelle Hernandez Sep 04, 2017 11:34 Lashawn Sanchez MD Sep 04, 2017 16:19
--- NOTE | 2017-09-04 12:52 | HHI.IDPN ---
Note Infectious Disease Note ID NOTE [id number] black male who presented to the emergency department with shortness of breath on 09/01/2017. The patient states that he woke up in the morning and suddenly developed shortness of breath and felt like someone had dropped heavy weight on his chest. He was also complaining of left sided chest pain. The patient was recently treated for influenza in July. Notes reviewed Temps ok Feels a little better. He denies chills. Continues to have cough. Producing light forbes sputum. PAST HISTORY: Hypertension, diabetes mellitus, congestive heart failure while he was receiving dialysis, TIA, renal transplantation in 04/2009. ALLERGIES: NO KNOWN DRUG ALLERGIES. THE PATIENT IS ALLERGIC PEAS, BEETS, BANANA, TOMATO, LATEX. Current Medications Medications (Trade) Dose Ordered Sig/Yasmany Route Start Time Stop Time Status Last Admin Sodium Chloride 1,000 ml @ 100 mls/hr Q10H IV 09/01/17 14:34 09/04/17 06:10 (NS Flush) 2 ml UNSCH PRN IV FLUSH 09/01/17 14:45 (NS Flush) 2 ml BID IV FLUSH 09/01/17 21:00 09/03/17 21:06 (Heparin Inj) 5,000 units Q8HR SQ 09/01/17 22:00 (Narcan Inj) 0.4 mg UNSCH PRN IV PUSH 09/01/17 14:45 (Tylenol) 650 mg Q4H PRN PO 09/01/17 16:15 (Norvasc) 10 mg DAILY PO 09/02/17 09:00 09/04/17 08:37 (Lipitor) 80 mg EVERY OTHER DAY PO 09/03/17 09:00 09/03/17 08:45 (Nephrocaps) 1 cap DAILY PO 09/02/17 09:00 09/04/17 08:40 (Flonase Sergio Spr) 1 spray BID EACH NARE 09/01/17 21:00 09/04/17 08:37 (Apresoline) 25 mg TID PO 09/02/17 09:00 09/04/17 08:38 (Synthroid) 25 mcg DAILY@0600 PO 09/02/17 06:00 09/04/17 06:23 (Cellcept) 500 mg BID PO 09/01/17 21:00 09/04/17 09:41 (Protonix) 20 mg DAILY PRN PO 09/01/17 19:15 (Deltasone) 10 mg DAILY PO 09/02/17 09:00 09/04/17 08:38 (Sodium Bicarbonate) 1,300 mg BIDPC PO 09/02/17 09:00 09/04/17 08:37 (Prograf) 5 mg Q12H PO 09/01/17 21:00 09/04/17 08:38 (Toprol Xl) 100 mg DAILY PO 09/02/17 09:00 09/04/17 08:38 (Zofran Odt) 4 mg Q12H PRN PO 09/01/17 22:00 09/03/17 13:01 (Levemir Inj) 20 units DAILY SQ 09/02/17 09:00 09/04/17 08:40 Cefepime HCl 2000 mg/Sodium Chloride 100 ml @ 200 mls/hr DAILY@0600 IV 09/03/17 06:00 09/04/17 06:24 (NovoLOG SUPPLEMENTAL SCALE) 1 ACHS SLIDING SCALE SQ 09/02/17 21:00 09/03/17 21:10 (D50w (Vial) Inj) 50 ml UNSCH PRN IV PUSH 09/02/17 17:15 (Glucagon Inj) 1 mg UNSCH PRN OTHER 09/02/17 17:15 (Mucomyst 10% Neb) 2 ml Q6HR WHILE AWAKE NEB PRN NEB 09/04/17 10:00 (Duoneb Neb) 1 ampule Q6HR WHILE AWAKE NEB NEB 09/04/17 14:00 OBJECTIVE: Vital Signs Date Time Temp Pulse Resp B/P (MAP) Pulse Ox O2 Delivery O2 Flow Rate FiO2 09/04/17 12:00 98.4 78 18 94 09/04/17 11:21 Nasal Cannula 1.00 09/04/17 08:30 Nasal Cannula 2.00 09/04/17 08:00 98.7 70 18 151/83 (105) 94 09/04/17 04:00 98.4 74 20 161/87 (111) 95 09/04/17 04:00 72 09/04/17 00:00 98.6 70 18 139/75 (96) 98 09/04/17 00:00 68 09/03/17 22:07 98.5 74 18 141/81 (101) 96 09/03/17 22:00 74 09/03/17 22:00 Nasal Cannula 2.00 09/03/17 19:00 77 09/03/17 19:00 97.8 75 18 145/80 (101) 99 09/03/17 19:00 99 Nasal Cannula 2.00 09/03/17 18:00 80 09/03/17 16:00 87 09/03/17 15:00 95 Nasal Cannula 2.00 09/03/17 15:00 98.4 81 18 151/75 (100) 95 09/03/17 15:00 81 09/03/17 14:00 83 09/03/17 13:00 82 Vital Signs Date Time Temp Pulse Resp B/P (MAP) Pulse Ox O2 Delivery O2 Flow Rate FiO2 09/03/17 15:00 95 Nasal Cannula 2.00 09/03/17 15:00 98.4 81 18 151/75 (100) 95 09/03/17 15:00 81 09/03/17 14:00 83 09/03/17 13:00 82 09/03/17 12:00 82 09/03/17 11:00 84 09/03/17 11:00 98.3 79 20 147/82 (103) 98 09/03/17 11:00 98 Nasal Cannula 2.00 09/03/17 10:00 82 09/03/17 09:00 80 09/03/17 08:00 80 09/03/17 07:00 94 Nasal Cannula 2.00 09/03/17 07:00 98.1 81 20 156/92 (113) 94 09/03/17 07:00 81 09/03/17 06:00 81 09/03/17 05:00 85 09/03/17 04:00 83 09/03/17 03:00 94 Nasal Cannula 2.00 09/03/17 03:00 73 09/03/17 03:00 98.0 73 20 145/70 (95) 94 09/03/17 02:00 78 09/03/17 01:00 74 09/03/17 00:00 83 09/02/17 23:00 98.6 87 20 152/80 (104) 94 09/02/17 23:00 87 09/02/17 23:00 95 Nasal Cannula 2.00 09/02/17 22:00 92 09/02/17 21:00 81 09/02/17 20:00 82 09/02/17 19:00 95 Nasal Cannula 2.00 09/02/17 19:00 98.3 82 20 148/78 (101) 95 09/02/17 19:00 85 09/02/17 18:00 82 Laboratory Tests Test 09/03/17 08:50 09/04/17 07:24 White Blood Count 19.0 TH/MM3 13.1 TH/MM3 Red Blood Count 4.07 MIL/MM3 3.76 MIL/MM3 Hemoglobin 9.9 GM/DL 9.1 GM/DL Hematocrit 31.1 % 28.8 % Mean Corpuscular Volume 76.4 FL 76.5 FL Mean Corpuscular Hemoglobin 24.3 PG 24.2 PG Mean Corpuscular Hemoglobin Concent 31.7 % 31.7 % Red Cell Distribution Width 15.8 % 15.7 % Platelet Count 210 TH/MM3 230 TH/MM3 Mean Platelet Volume 8.8 FL 8.7 FL Laboratory Tests Test 09/03/17 08:50 09/04/17 07:24 Blood Urea Nitrogen 66 MG/DL 64 MG/DL Creatinine 3.51 MG/DL 3.57 MG/DL Random Glucose 98 MG/DL 136 MG/DL Calcium Level 8.9 MG/DL 8.5 MG/DL Sodium Level 141 MEQ/L 140 MEQ/L Potassium Level 4.7 MEQ/L 4.8 MEQ/L Chloride Level 114 MEQ/L 111 MEQ/L Carbon Dioxide Level 17.4 MEQ/L 19.6 MEQ/L Anion Gap 10 MEQ/L 9 MEQ/L Estimat Glomerular Filtration Rate 22 ML/MIN 22 ML/MIN Microbiology Date/Time Source Procedure Growth Status 09/04/17 06:35 Stool Stool Cryptosporidium Exam Pending Received 09/04/17 06:35 Stool Stool Giardia Antigen (PARAMJIT) Pending Received 09/04/17 06:35 Stool Stool Pending Received 09/02/17 18:45 Sputum Expectorated Sputum Gram Stain - Final Resulted 09/02/17 18:45 Sputum Expectorated Sputum Sputum Culture Pending Resulted 09/01/17 13:15 Nasal Washing Influenza Types A,B Antigen (PARAMJIT) - Final NEGATIVE FOR FLU A AND B ANTIGEN.... Complete IMAGING: Chest X-Ray 09/01/17 1206 Signed Impressions: Service Date/Time: Friday, September 01, 2017 12:32 - CONCLUSION: Lingular and left lower lobe consolidation likely pneumonia. Treatment and followup to resolution.. Kareem Burnham MD Chest CT 09/01/17 0000 Signed Impressions: Service Date/Time: Friday, September 01, 2017 16:45 - CONCLUSION: Dense consolidative changes left lung consistent with inflammatory process. Followup to resolution is suggested. Elvin Linn MD FACR PHYSICAL EXAMINATION: GENERAL: He is awake, alert and oriented. NAD HEENT: The head is atraumatic. Extraocular movements grossly intact, pupils reactive to light. No icterus. Oropharynx moist mucosal without lesions. NECK: Supple without adenopathy. LUNGS: Scattered rhonchi HEART: Regular rate and rhythm without murmurs, rubs or gallops. ABDOMEN: Bowel sounds present, soft, no tenderness appreciated. Patient has slight bulge at the right lower abdomen where the kidney transplant is located. No tenderness located there. EXTREMITIES: No clubbing, cyanosis or edema. SKIN: No rash. NEUROLOGIC: No gross focal findings. PSYCHIATRIC: Calm and cooperative. LINE: No evidence of infection IMPRESSION: 1. Sepsis on presentation. 2. Left lung pneumonia. 3. 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 4. Leukocytosis secondary to infection. WBC decreasing. 5. Acute on chronic kidney disease. RECOMMENDATIONS: Continue Cefepime. Follow C/S Monitor white blood cell count. Monitor blood cultures. Monitor progress Hoa Esparza MD Sep 04, 2017 12:52
[2017-09-04] MEDS: ONDANSETRON ODT 4 MG TAB PO PRN ×2 (16:02→20:26)
[2017-09-04] MEDS: RESP: ALBUTEROL 2.5 MG/IPRATROPIUM 0.5 MG NEB (SCH) NEB (20:38)
[2017-09-05] VITALS (12 sets, daily range): BP systolic 118–164; BP diastolic 65–93; PULSE 63–85; RESP 16–24; TEMP 97.2–98.4; O2SAT 91–96
[2017-09-05] MEDS: LEVOTHYROXINE SODIUM 25 MCG TAB PO SCH (05:32)
[2017-09-05] MEDS: CEFEPIME INJ 2,000 MG in SODIUM CHLORIDE 0.9% INJ 100 ML IV SCH (05:34)
[2017-09-05] MEDS: HEPARIN SODIUM - SQ 10,000 UNITS/ML VIAL SQ SCH ×3 (05:34→20:43)
[2017-09-05] MEDS: INSULIN ASPART SUPPLEMENTAL SCALE SQ SCH ×4 (08:00→20:42)
[2017-09-05] MEDS: RESP: ALBUTEROL 2.5 MG/IPRATROPIUM 0.5 MG NEB (SCH) NEB ×3 (08:38→20:33)
[2017-09-05] MEDS: VITAMIN B CMPLX/VITC/FOLIC AC CAP PO SCH (09:00)
[2017-09-05] MEDS: predniSONE 10 MG TAB PO SCH (09:07)
[2017-09-05] MEDS: ATORVASTATIN 80 MG TAB PO SCH (09:07)
[2017-09-05] MEDS: SODIUM BICARBONATE 650 MG TAB PO SCH ×2 (09:07→17:30)
[2017-09-05] MEDS: hydrALAZINE HCL 25 MG TAB PO SCH ×3 (09:07→17:30)
[2017-09-05] MEDS: METOPROLOL SUCCINATE 50 MG EXTENDED RELEASE TAB PO SCH (09:07)
[2017-09-05] MEDS: MYCOPHENOLATE MOFETIL 500 MG TAB PO SCH ×2 (09:07→20:42)
[2017-09-05] MEDS: INSULIN DETEMIR 100 UNITS/ML VIAL SQ SCH (09:08)
[2017-09-05] MEDS: TACROLIMUS 5 MG CAP PO SCH ×2 (09:11→20:42)
[2017-09-05] MEDS: SODIUM CHLORIDE 0.9% FLUSH 10 ML FLUSH IV FLUSH SCH ×2 (09:11→20:43)
[2017-09-05] MEDS: FLUTICASONE PROPIONATE 50 MCG/ACT 16 GM NASAL SPRAY EACH NARE SCH ×2 (09:11→20:42)
--- NOTE | 2017-09-05 10:11 | HHI.NPPN ---
Subjective Renal Failure: Acute History of Present Illness 56 year old male with Kidney Transplant 2009 admitted with Pneumonia Additional Remarks Cough improved. Denies any SOB. No Edema (Chelle Hernandez) Review of Systems General Constitutional: Fatigue (Chelle Hernandez) Respiratory Lungs: Cough (Chelle Hernandez) Objective Data Data Vital Signs Date Time Temp Pulse Resp B/P (MAP) Pulse Ox O2 Delivery O2 Flow Rate FiO2 09/05/17 08:39 94 Nasal Cannula 2.00 09/05/17 08:00 97.2 72 17 164/93 (116) 91 09/05/17 04:00 98.3 74 16 150/76 (100) 96 09/05/17 04:00 Nasal Cannula 1.00 09/05/17 03:59 67 09/05/17 00:00 97.9 72 16 147/79 (101) 95 09/05/17 00:00 Nasal Cannula 1.00 09/04/17 23:44 72 09/04/17 20:42 96 Nasal Cannula 2.00 09/04/17 20:00 Nasal Cannula 1.00 09/04/17 20:00 98.1 78 20 154/85 (108) 95 09/04/17 19:42 75 09/04/17 16:00 77 09/04/17 16:00 98.6 80 18 148/81 (103) 95 09/04/17 12:00 98.4 78 18 94 09/04/17 11:58 83 09/04/17 11:21 Nasal Cannula 1.00 (Chelle Hernandez) -: 09/04/17 0724 09/04/17 0724 Physical Exam General Appearance: Well Developed, Well Nourished (Chelle Hernandez) Neck Neck Exam: Neck Supple (Chelle Hernandez) Pulmonary Resp Exam: Rhonchi, Decreased Bases (Chelle Hernandez) Cardiology CV Exam: Regular, Normal Sinus Rhythm (Chelle Hernandez) Gastrointestinal/Abdomen GI Exam: Soft, Non-Tender, Bowel Sounds Present (Chelle Hernandez) Extremeties Extremities Exam: No Edema (Chelle Hernandez) Assessment/Plan Problem List: (1) Renal transplant recipient ICD Codes: Z94.0 - Kidney transplant status Status: Chronic Plan: On prednisone, Prograf and CellCept Potassium WNL Cr at 3.57 yesterday Tac level at 5.3 Will follow UOP and BMP. Plans for possible discharge today will need to follow up with nephrology outpatient (2) Hypertension ICD Codes: I10 - Essential (primary) hypertension Status: Acute Plan: Continue to monitor (3) PNA (pneumonia) ICD Codes: J18.9 - Pneumonia Status: Acute Plan: received vancomycin, Zosyn and now on Cefepime (4) Diabetes mellitus ICD Codes: E11.9 - Type 2 diabetes mellitus without complications Status: Chronic Plan: On insulin (Chelle Hernandez) Problem List: (1) Renal transplant recipient ICD Codes: Z94.0 - Kidney transplant status Status: Chronic Plan: On prednisone, Prograf and CellCept Potassium WNL Cr at 3.57 yesterday Tac level at 5.3 Will follow UOP and BMP. Plans for possible discharge today will need to follow up with nephrology outpatient. Patient seen and examined, agree with above. Creatinine is almost same. (2) Hypertension ICD Codes: I10 - Essential (primary) hypertension Status: Acute Plan: Continue to monitor (3) PNA (pneumonia) ICD Codes: J18.9 - Pneumonia Status: Acute Plan: received vancomycin, Zosyn and now on Cefepime (4) Diabetes mellitus ICD Codes: E11.9 - Type 2 diabetes mellitus without complications Status: Chronic Plan: On insulin (Lashawn Sanchez MD) Problem Qualifiers (1) Diabetes mellitus: Chelle Hernandez Sep 05, 2017 10:11 Lashawn Sanchez MD Sep 05, 2017 19:41
[2017-09-05] MEDS: ONDANSETRON ODT 4 MG TAB PO PRN (15:20)
--- NOTE | 2017-09-05 15:22 | HHI.PR ---
Subjective Remarks Nursing denies any deterioration since last night. Did not have any IV access since last night, per nursing patient did not want to get stuck again. Has not had antibiotics since last night up until around noon today. Successfully weaned down to room air. Objective Vital Signs Date Time Temp Pulse Resp B/P (MAP) Pulse Ox O2 Delivery O2 Flow Rate FiO2 09/05/17 12:00 98.0 85 18 149/77 (101) 92 09/05/17 08:39 94 Nasal Cannula 2.00 09/05/17 08:00 97.2 72 17 164/93 (116) 91 09/05/17 04:00 98.3 74 16 150/76 (100) 96 09/05/17 04:00 Nasal Cannula 1.00 09/05/17 03:59 67 09/05/17 00:00 97.9 72 16 147/79 (101) 95 09/05/17 00:00 Nasal Cannula 1.00 09/04/17 23:44 72 09/04/17 20:42 96 Nasal Cannula 2.00 09/04/17 20:00 Nasal Cannula 1.00 09/04/17 20:00 98.1 78 20 154/85 (108) 95 09/04/17 19:42 75 09/04/17 16:00 77 09/04/17 16:00 98.6 80 18 148/81 (103) 95 I/O 09/04/17 09/04/17 09/04/17 09/05/17 09/05/17 09/05/17 07:00 15:00 23:00 07:00 15:00 23:00 Intake Total 1000 ml Balance 1000 ml IV Total 1000 ml # Voids 3 Result Diagram: 09/04/1724 09/04/17 0724 Objective Remarks Very minimal crackles on the left base, otherwise clear lung sounds all throughout, unlabored breathing, no cyanosis A/P Assessment and Plan Assessment and Plan This is a 56-year-old renal transplant who was admitted with sepsis, acute hypoxic respiratory failure secondary to pneumonia. Acute respiratory failure -resolved LLL PNA - cefepime continued per ID, will monitor for another 24 hours given patient's immunocompromised state Renal transplant status with chronic renal failure -Nephrology following, monitoring tacrolimus levels - prednisone and sodium bicarb per nephro Hypertension/type 2 diabetes/TIA/history of CHF -HCTZ/lisinopril and Lasix held secondary to acute on chronic renal failure. -Continue home metoprolol -On insulin sliding scale. Also on Levemir. Hypoglycemic protocol. DVT prophylaxis with heparin. Discharge Planning Patient clinically is improving; discharge pending ID clearance Jarod Pina MD Sep 05, 2017 15:22
--- NOTE | 2017-09-05 16:02 | HHI.IDPN ---
Note Infectious Disease Note ID NOTE [id number] black male who presented to the emergency department with shortness of breath on 09/01/2017. The patient states that he woke up in the morning and suddenly developed shortness of breath and felt like someone had dropped heavy weight on his chest. He was also complaining of left sided chest pain. The patient was recently treated for influenza in July. Notes reviewed Temps ok Cough is better He denies chills. Sputum C/S pending Repeat CXR ?evolving PAST HISTORY: Hypertension, diabetes mellitus, congestive heart failure while he was receiving dialysis, TIA, renal transplantation in 04/2009. ALLERGIES: NO KNOWN DRUG ALLERGIES. THE PATIENT IS ALLERGIC PEAS, BEETS, BANANA, TOMATO, LATEX. Current Medications Medications (Trade) Dose Ordered Sig/Yasmany Route Start Time Stop Time Status Last Admin Sodium Chloride 1,000 ml @ 100 mls/hr Q10H IV 09/01/17 14:34 09/04/17 06:10 (NS Flush) 2 ml UNSCH PRN IV FLUSH 09/01/17 14:45 (NS Flush) 2 ml BID IV FLUSH 09/01/17 21:00 09/05/17 09:11 (Heparin Inj) 5,000 units Q8HR SQ 09/01/17 22:00 (Narcan Inj) 0.4 mg UNSCH PRN IV PUSH 09/01/17 14:45 (Tylenol) 650 mg Q4H PRN PO 09/01/17 16:15 09/05/17 13:48 (Norvasc) 10 mg DAILY PO 09/02/17 09:00 09/05/17 09:07 (Lipitor) 80 mg EVERY OTHER DAY PO 09/03/17 09:00 09/05/17 09:07 (Nephrocaps) 1 cap DAILY PO 09/02/17 09:00 09/05/17 09:00 (Flonase Sergio Spr) 1 spray BID EACH NARE 09/01/17 21:00 09/05/17 09:11 (Apresoline) 25 mg TID PO 09/02/17 09:00 09/05/17 13:48 (Synthroid) 25 mcg DAILY@0600 PO 09/02/17 06:00 09/05/17 05:32 (Cellcept) 500 mg BID PO 09/01/17 21:00 09/05/17 09:07 (Protonix) 20 mg DAILY PRN PO 09/01/17 19:15 (Deltasone) 10 mg DAILY PO 09/02/17 09:00 09/05/17 09:07 (Sodium Bicarbonate) 1,300 mg BIDPC PO 09/02/17 09:00 09/05/17 09:07 (Prograf) 5 mg Q12H PO 09/01/17 21:00 09/05/17 09:11 (Toprol Xl) 100 mg DAILY PO 09/02/17 09:00 09/05/17 09:07 (Zofran Odt) 4 mg Q12H PRN PO 09/01/17 22:00 09/05/17 15:20 (Levemir Inj) 20 units DAILY SQ 09/02/17 09:00 09/05/17 09:08 Cefepime HCl 2000 mg/Sodium Chloride 100 ml @ 200 mls/hr DAILY@0600 IV 09/03/17 06:00 09/04/17 06:24 (NovoLOG SUPPLEMENTAL SCALE) 1 ACHS SLIDING SCALE SQ 09/02/17 21:00 09/04/17 20:26 (D50w (Vial) Inj) 50 ml UNSCH PRN IV PUSH 09/02/17 17:15 (Glucagon Inj) 1 mg UNSCH PRN OTHER 09/02/17 17:15 (Mucomyst 10% Neb) 2 ml Q6HR WHILE AWAKE NEB PRN NEB 09/04/17 10:00 (Duoneb Neb) 1 ampule Q6HR WHILE AWAKE NEB NEB 09/04/17 14:00 09/05/17 08:38 OBJECTIVE: Vital Signs Date Time Temp Pulse Resp B/P (MAP) Pulse Ox O2 Delivery O2 Flow Rate FiO2 09/05/17 12:00 98.0 85 18 149/77 (101) 92 09/05/17 08:39 94 Nasal Cannula 2.00 09/05/17 08:00 97.2 72 17 164/93 (116) 91 09/05/17 04:00 98.3 74 16 150/76 (100) 96 09/05/17 04:00 Nasal Cannula 1.00 09/05/17 03:59 67 09/05/17 00:00 97.9 72 16 147/79 (101) 95 09/05/17 00:00 Nasal Cannula 1.00 09/04/17 23:44 72 09/04/17 20:42 96 Nasal Cannula 2.00 09/04/17 20:00 Nasal Cannula 1.00 09/04/17 20:00 98.1 78 20 154/85 (108) 95 09/04/17 19:42 75 Vital Signs Date Time Temp Pulse Resp B/P (MAP) Pulse Ox O2 Delivery O2 Flow Rate FiO2 09/04/17 12:00 98.4 78 18 94 09/04/17 11:21 Nasal Cannula 1.00 09/04/17 08:30 Nasal Cannula 2.00 09/04/17 08:00 98.7 70 18 151/83 (105) 94 09/04/17 04:00 98.4 74 20 161/87 (111) 95 09/04/17 04:00 72 09/04/17 00:00 98.6 70 18 139/75 (96) 98 09/04/17 00:00 68 09/03/17 22:07 98.5 74 18 141/81 (101) 96 09/03/17 22:00 74 09/03/17 22:00 Nasal Cannula 2.00 09/03/17 19:00 77 09/03/17 19:00 97.8 75 18 145/80 (101) 99 09/03/17 19:00 99 Nasal Cannula 2.00 09/03/17 18:00 80 09/03/17 16:00 87 09/03/17 15:00 95 Nasal Cannula 2.00 09/03/17 15:00 98.4 81 18 151/75 (100) 95 09/03/17 15:00 81 09/03/17 14:00 83 09/03/17 13:00 82 Laboratory Tests Test 09/03/17 08:50 09/04/17 07:24 White Blood Count 19.0 TH/MM3 13.1 TH/MM3 Red Blood Count 4.07 MIL/MM3 3.76 MIL/MM3 Hemoglobin 9.9 GM/DL 9.1 GM/DL Hematocrit 31.1 % 28.8 % Mean Corpuscular Volume 76.4 FL 76.5 FL Mean Corpuscular Hemoglobin 24.3 PG 24.2 PG Mean Corpuscular Hemoglobin Concent 31.7 % 31.7 % Red Cell Distribution Width 15.8 % 15.7 % Platelet Count 210 TH/MM3 230 TH/MM3 Mean Platelet Volume 8.8 FL 8.7 FL Laboratory Tests Test 09/03/17 08:50 09/04/17 07:24 Blood Urea Nitrogen 66 MG/DL 64 MG/DL Creatinine 3.51 MG/DL 3.57 MG/DL Random Glucose 98 MG/DL 136 MG/DL Calcium Level 8.9 MG/DL 8.5 MG/DL Sodium Level 141 MEQ/L 140 MEQ/L Potassium Level 4.7 MEQ/L 4.8 MEQ/L Chloride Level 114 MEQ/L 111 MEQ/L Carbon Dioxide Level 17.4 MEQ/L 19.6 MEQ/L Anion Gap 10 MEQ/L 9 MEQ/L Estimat Glomerular Filtration Rate 22 ML/MIN 22 ML/MIN Microbiology Date/Time Source Procedure Growth Status 09/04/17 06:35 Stool Stool Cryptosporidium Exam Pending Received 09/04/17 06:35 Stool Stool Giardia Antigen (PARAMJIT) Pending Received 09/04/17 06:35 Stool Stool Pending Received 09/02/17 18:45 Sputum Expectorated Sputum Gram Stain - Final Resulted 09/02/17 18:45 Sputum Expectorated Sputum Sputum Culture Pending Resulted 09/01/17 13:15 Nasal Washing Influenza Types A,B Antigen (PARAMJIT) - Final NEGATIVE FOR FLU A AND B ANTIGEN.... Complete IMAGING: Chest X-Ray 09/01/17 1206 Signed Impressions: Service Date/Time: Friday, September 01, 2017 12:32 - CONCLUSION: Lingular and left lower lobe consolidation likely pneumonia. Treatment and followup to resolution.. Kareem Burnham MD Chest CT 09/01/17 0000 Signed Impressions: Service Date/Time: Friday, September 01, 2017 16:45 - CONCLUSION: Dense consolidative changes left lung consistent with inflammatory process. Followup to resolution is suggested. Elvin Linn MD FACR PHYSICAL EXAMINATION: GENERAL: He is awake, alert and oriented. NAD HEENT: The head is atraumatic. pupils reactive to light. No icterus. Oropharynx moist mucosal without lesions. NECK: Supple without adenopathy. LUNGS: Coarse BS jose david, withj some rhonchi L HEART: Regular rate and rhythm without murmurs, rubs or gallops. ABDOMEN: Bowel sounds present, soft, no tenderness appreciated. EXTREMITIES: No clubbing, cyanosis or edema. SKIN: No rash. NEUROLOGIC: No gross focal findings. PSYCHIATRIC: Calm and cooperative. LINE: No evidence of infection IMPRESSION: 1. Sepsis on presentation. 2. Left lung pneumonia. ?developing cavitation 3. 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 4. Leukocytosis secondary to infection. WBC decreasing. 5. Acute on chronic kidney disease. RECOMMENDATIONS: Continue Cefepime. Follow C/S Monitor white blood cell count. Monitor blood cultures. Monitor progress Dr Small back tomorrow to resume ID care Hoa Esparza MD Sep 05, 2017 16:02
--- NOTE | 2017-09-05 16:08 | RADRPT ---
EXAM DATE/TIME: 09/05/2017 15:26 [facility] COMPARISON: CT THORAX W/O CONTRAST, September 01, 2017, 16:45. INDICATIONS : Short of Breath MEDICAL HISTORY : None. SURGICAL HISTORY : None. ENCOUNTER: Initial ACUITY: 1 day PAIN SCORE: 0/10 LOCATION: chest FINDINGS: Previous confluent airspace disease in the left perihilar region and left base has now become more pa tchy in appearance with slightly more involvement on the left upper lobe. There is a mild right perih ilar airspace disease as well. Trace left pleural fluid. No pneumothorax. CONCLUSION: 1. Confluent airspace disease on the left is now more patchy in appearance. Slight increase in involv ement of the left upper lobe. Findings remain most characteristic of bronchopneumonia. No pneumothora x. Adam Martin MD on September 05, 2017 at 16:05 Board Certified Radiologist. This report was verified electronically.
[2017-09-05] MEDS: SODIUM CHLOR 0.9% 1000 ML INJ 1,000 ML IV SCH (18:34)
[2017-09-06] VITALS (10 sets, daily range): BP systolic 140–159; BP diastolic 80–86; PULSE 75–90; RESP 16–18; TEMP 98.1–99.8; O2SAT 90–100
[2017-09-06] MEDS: SODIUM CHLOR 0.9% 1000 ML INJ 1,000 ML IV SCH ×2 (04:34→14:34)
[2017-09-06] MEDS: HEPARIN SODIUM - SQ 10,000 UNITS/ML VIAL SQ SCH ×3 (06:00→21:17)
[2017-09-06] MEDS: LEVOTHYROXINE SODIUM 25 MCG TAB PO SCH (06:05)
[2017-09-06] MEDS: CEFEPIME INJ 2,000 MG in SODIUM CHLORIDE 0.9% INJ 100 ML IV SCH (06:05)
[2017-09-06] MEDS: RESP: ACETYLCYSTEINE 10% 30 ML NEB NEB SCH ×3 (07:49→19:53)
[2017-09-06] MEDS: RESP: ALBUTEROL 2.5 MG/IPRATROPIUM 0.5 MG NEB (SCH) NEB ×3 (07:51→19:53)
[2017-09-06] MEDS: INSULIN ASPART SUPPLEMENTAL SCALE SQ SCH ×4 (08:00→21:22)
[2017-09-06] MEDS: FLUTICASONE PROPIONATE 50 MCG/ACT 16 GM NASAL SPRAY EACH NARE SCH ×2 (08:53→21:00)
[2017-09-06] MEDS: METOPROLOL SUCCINATE 50 MG EXTENDED RELEASE TAB PO SCH (08:56)
[2017-09-06] MEDS: SODIUM BICARBONATE 650 MG TAB PO SCH ×2 (08:56→19:27)
[2017-09-06] MEDS: TACROLIMUS 5 MG CAP PO SCH ×2 (08:57→21:17)
[2017-09-06] MEDS: hydrALAZINE HCL 25 MG TAB PO SCH ×3 (08:57→19:27)
[2017-09-06] MEDS: predniSONE 10 MG TAB PO SCH (08:57)
[2017-09-06] MEDS: SODIUM CHLORIDE 0.9% FLUSH 10 ML FLUSH IV FLUSH SCH ×2 (08:58→21:16)
[2017-09-06] MEDS: VITAMIN B CMPLX/VITC/FOLIC AC CAP PO SCH (08:59)
[2017-09-06] MEDS: INSULIN DETEMIR 100 UNITS/ML VIAL SQ SCH (08:59)
[2017-09-06] MEDS: MYCOPHENOLATE MOFETIL 500 MG TAB PO SCH ×2 (09:03→21:16)
--- NOTE | 2017-09-06 14:00 | HHI.NPPN ---
Subjective Renal Failure: Acute History of Present Illness 56 year old male with Kidney Transplant 2009 admitted with Pneumonia Additional Remarks Cough improved. Denies any SOB. No Edema Review of Systems General Constitutional: Fatigue Respiratory Lungs: Cough Objective Data Data Vital Signs Date Time Temp Pulse Resp B/P (MAP) Pulse Ox O2 Delivery O2 Flow Rate FiO2 09/06/17 08:02 98.1 87 18 159/86 (110) 94 09/06/17 08:00 Room Air 09/06/17 07:54 96 09/06/17 04:04 79 09/06/17 04:00 Room Air 09/06/17 00:03 75 09/06/17 00:00 Nasal Cannula 1.00 09/06/17 00:00 99.8 85 16 157/80 (105) 95 09/05/17 20:35 95 Nasal Cannula 2.00 09/05/17 20:00 Nasal Cannula 1.00 09/05/17 20:00 97.9 63 24 118/69 (85) 94 09/05/17 19:44 79 09/05/17 16:00 98.4 78 18 129/65 (86) 92 09/05/17 15:58 76 -: 09/04/17 0724 09/04/17 0724 Physical Exam General Appearance: Well Developed, Well Nourished Neck Neck Exam: Neck Supple Pulmonary Resp Exam: Rhonchi, Decreased Bases Cardiology CV Exam: Regular, Normal Sinus Rhythm Gastrointestinal/Abdomen GI Exam: Soft, Non-Tender, Bowel Sounds Present Extremeties Extremities Exam: No Edema Assessment/Plan Problem List: (1) Renal transplant recipient ICD Codes: Z94.0 - Kidney transplant status Status: Chronic Plan: On prednisone, Prograf and CellCept Potassium WNL Cr at 3.57 on Wednesday Tac level at 5.3 Will follow UOP and BMP. Plans for possible discharge follow-up as an outpatient (2) Hypertension ICD Codes: I10 - Essential (primary) hypertension Status: Acute Plan: Continue to monitor (3) PNA (pneumonia) ICD Codes: J18.9 - Pneumonia Status: Acute Plan: received vancomycin, Zosyn and now on Cefepime (4) Diabetes mellitus ICD Codes: E11.9 - Type 2 diabetes mellitus without complications Status: Chronic Plan: On insulin Problem Qualifiers (1) Diabetes mellitus: Chito Pereira MD Sep 06, 2017 14:00
--- NOTE | 2017-09-06 16:45 | HHI.DCPOC ---
Discharge Care Plan Diagnosis: (1) PNA (pneumonia) Goals to Promote Your Health * To prevent worsening of your condition and complications * To maintain your health at the optimal level Directions to Meet Your Goals Take your medications as prescribed Follow your dietary instruction Follow activity as directed Keep your appointments as scheduled Take your immunizations and boosters as scheduled If your symptoms worsen call your PCP, if no PCP go to Urgent Care Center or Emergency Room Smoking is Dangerous to Your Health. Avoid second hand smoke Call the 24-hour hour crisis hotline for domestic abuse at Jarod Pina MD Sep 06, 2017 16:45
[2017-09-06 18:04] LABS: BICARBONATE 17.8 MEQ/L (21.0-32.0); CALCIUM 8.5 MG/DL (8.5-10.1); CREATININE 3.4 MG/DL (0.60-1.30)
--- NOTE | 2017-09-06 19:04 | HHI.IDPN ---
Note Infectious Disease Note Patient says he feels okay. Continues with coughing. Appears dyspneic when I sat him up from laying down. Denies chest pain. Denies chills. Chest x-ray appears to be clearly worse. Afebrile. 56-year-old black male who presented to the emergency department with shortness of breath on 09/01/2017. The patient states that he woke up in the morning and suddenly developed shortness of breath and felt like someone had dropped heavy weight on his chest. He was also complaining of left sided chest pain. The patient was recently treated for influenza in July. PAST MEDICAL HISTORY: Hypertension, diabetes mellitus, congestive heart failure while he was receiving dialysis, TIA, renal transplantation in 04/2009. ALLERGIES: NO KNOWN DRUG ALLERGIES. THE PATIENT IS ALLERGIC PEAS, BEETS, BANANA, TOMATO, LATEX. MEDICATIONS: Current Medications Medications (Trade) Dose Ordered Sig/Yasmany Route PRN Reason Start Time Stop Time Status Last Admin Dose Admin Sodium Chloride 1,000 ml @ 100 mls/hr Q10H IV 09/01/17 14:34 09/06/17 04:34 Sodium Chloride (NS Flush) 2 ml UNSCH PRN IV FLUSH FLUSH AFTER USING IV ACCESS 09/01/17 14:45 Sodium Chloride (NS Flush) 2 ml BID IV FLUSH 09/01/17 21:00 09/05/17 20:43 Heparin Sodium (Porcine) (Heparin Inj) 5,000 units Q8HR SQ 09/01/17 22:00 Naloxone HCl (Narcan Inj) 0.4 mg UNSCH PRN IV PUSH SEE LABEL COMMENTS 09/01/17 14:45 Acetaminophen (Tylenol) 650 mg Q4H PRN PO fever >101 09/01/17 16:15 09/05/17 13:48 Amlodipine Besylate (Norvasc) 10 mg DAILY PO 09/02/17 09:00 09/06/17 08:57 Atorvastatin Calcium (Lipitor) 80 mg EVERY OTHER DAY PO 09/03/17 09:00 09/05/17 09:07 Vitamin B Complex/ Vit C/Folic Acid (Nephrocaps) 1 cap DAILY PO 09/02/17 09:00 09/06/17 08:59 Fluticasone Propionate (Flonase Sergio Spr) 1 spray BID EACH NARE 09/01/17 21:00 09/05/17 09:11 Hydralazine HCl (Apresoline) 25 mg TID PO 09/02/17 09:00 09/06/17 13:17 Levothyroxine Sodium (Synthroid) 25 mcg DAILY@0600 PO 09/02/17 06:00 09/06/17 06:05 Mycophenolate Mofetil (Cellcept) 500 mg BID PO 09/01/17 21:00 09/06/17 09:03 Pantoprazole Sodium (Protonix) 20 mg DAILY PRN PO REFLUX 09/01/17 19:15 Prednisone (Deltasone) 10 mg DAILY PO 09/02/17 09:00 09/06/17 08:57 Sodium Bicarbonate (Sodium Bicarbonate) 1,300 mg BIDPC PO 09/02/17 09:00 09/06/17 08:56 Tacrolimus (Prograf) 5 mg Q12H PO 09/01/17 21:00 09/06/17 08:57 Metoprolol Succinate (Toprol Xl) 100 mg DAILY PO 09/02/17 09:00 09/06/17 08:56 Ondansetron HCl (Zofran Odt) 4 mg Q12H PRN PO NAUSEA/VOMITING 09/01/17 22:00 09/05/17 15:20 Insulin Detemir (Levemir Inj) 20 units DAILY SQ 09/02/17 09:00 09/06/17 08:59 Cefepime HCl 2000 mg/Sodium Chloride 100 ml @ 200 mls/hr DAILY@0600 IV 09/03/17 06:00 09/06/17 06:05 Insulin Aspart (NovoLOG SUPPLEMENTAL SCALE) 1 ACHS SLIDING SCALE SQ 09/02/17 21:00 09/06/17 13:18 Dextrose (D50w (Vial) Inj) 50 ml UNSCH PRN IV PUSH HYPOGLYCEMIA-SEE COMMENTS 09/02/17 17:15 Glucagon (Glucagon Inj) 1 mg UNSCH PRN OTHER HYPOGLYCEMIA-SEE COMMENTS 09/02/17 17:15 Albuterol/ Ipratropium (Duoneb Neb) 1 ampule Q6HR WHILE AWAKE NEB NEB 09/04/17 14:00 09/06/17 12:20 Acetylcysteine (Mucomyst 10% Neb) 2 ml Q6HR WHILE AWAKE NEB NEB 09/05/17 20:00 09/06/17 12:21 OBJECTIVE: Vital Signs Date Time Temp Pulse Resp B/P (MAP) Pulse Ox O2 Delivery O2 Flow Rate FiO2 09/06/17 16:00 Room Air 09/06/17 12:02 99.5 90 18 146/86 (106) 93 09/06/17 12:00 Room Air 09/06/17 08:02 98.1 87 18 159/86 (110) 94 09/06/17 08:00 Room Air 09/06/17 07:54 96 09/06/17 04:04 79 09/06/17 04:00 Room Air 09/06/17 00:03 75 09/06/17 00:00 Nasal Cannula 1.00 09/06/17 00:00 99.8 85 16 157/80 (105) 95 09/05/17 20:35 95 Nasal Cannula 2.00 09/05/17 20:00 Nasal Cannula 1.00 09/05/17 20:00 97.9 63 24 118/69 (85) 94 09/05/17 19:44 79 Laboratory Tests Test 09/06/17 16:50 Blood Urea Nitrogen 62 MG/DL Creatinine 3.40 MG/DL Random Glucose 292 MG/DL Calcium Level 8.5 MG/DL Sodium Level 137 MEQ/L Potassium Level 5.2 MEQ/L Chloride Level 110 MEQ/L Carbon Dioxide Level 17.8 MEQ/L Anion Gap 9 MEQ/L Estimat Glomerular Filtration Rate 23 ML/MIN Microbiology Date/Time Source Procedure Growth Status 09/04/17 06:35 Stool Stool Cryptosporidium Exam - Final NEGATIVE - NO CRYPTOSPORIDIUM ANTIGEN... Complete 09/04/17 06:35 Stool Stool Giardia Antigen (PARAMJIT) - Final NEGATIVE - NO GIARDIA ANTIGEN DETECTE... Complete 09/04/17 06:35 Stool Stool - Final NO ENTERIC PATHOGENS DETECTED BY PCR... Complete IMAGING: Chest X-Ray 09/05/17 0000 Signed Impressions: Service Date/Time: Tuesday, September 05, 2017 15:26 - CONCLUSION: 1. Confluent airspace disease on the left is now more patchy in appearance. Slight increase in involvement of the left upper lobe. Findings remain most characteristic of bronchopneumonia. No pneumothorax. Adam Martin MD Chest X-Ray 09/01/17 1206 Signed Impressions: Service Date/Time: Friday, September 01, 2017 12:32 - CONCLUSION: Lingular and left lower lobe consolidation likely pneumonia. Treatment and followup to resolution.. Kareem Burnham MD Chest CT 09/01/17 0000 Signed Impressions: Service Date/Time: Friday, September 01, 2017 16:45 - CONCLUSION: Dense consolidative changes left lung consistent with inflammatory process. Followup to resolution is suggested. Elvin Linn MD FACR PHYSICAL EXAMINATION: GENERAL: No acute distress. He is awake, alert and oriented. HEENT: No icterus. Oropharynx moist mucosal without lesions. NECK: Supple without adenopathy. LUNGS: Bilateral rhonchi. HEART: Regular rate and rhythm without murmurs, rubs or gallops. ABDOMEN: Bowel sounds present, soft, no tenderness appreciated. Patient has slight bulge at the right lower abdomen where the kidney transplant is located. No tenderness. EXTREMITIES: No clubbing, cyanosis or edema. SKIN: No rash. NEUROLOGIC: No gross focal findings. PSYCHIATRIC: Calm and cooperative. IMPRESSION: 1. Sepsis on presentation. 2. Left lung pneumonia. Chest x-ray worsened. 3. 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 4. Leukocytosis secondary to infection. WBC decreasing. 5. Acute on chronic kidney disease. RECOMMENDATIONS: 1. Stop cefepime. 2. Begin Zosyn. 3. Begin Levaquin. 4. Monitor white blood cell count. Hold off on discharge. Need to see improvement in the chest x-ray in this patient who is immunocompromised. Benjamin Small MD Sep 06, 2017 19:04
[2017-09-06] MEDS ORDERED: LEVOFLOXACIN 250 MG PREMIX INJ 50 ML IV SCH (20:00)
[2017-09-06] MEDS: PIPERACIL-TAZO 2.25 GM PREMIX 50 ML IV SCH (21:17)
[2017-09-07] VITALS: BP 151/74; PULSE 83; RESP 17; TEMP 99.1; O2SAT 100
[2017-09-07] MEDS: SODIUM CHLOR 0.9% 1000 ML INJ 1,000 ML IV SCH ×2 (00:33→09:42)
[2017-09-07] MEDS: HEPARIN SODIUM - SQ 10,000 UNITS/ML VIAL SQ SCH (06:00)
[2017-09-07] MEDS: LEVOTHYROXINE SODIUM 25 MCG TAB PO SCH (06:26)
[2017-09-07 08:00] VITALS: BP 159/94; PULSE 85; RESP 20; TEMP 98; O2SAT 93
[2017-09-07] MEDS: RESP: ACETYLCYSTEINE 10% 30 ML NEB NEB SCH ×2 (08:09→12:01)
[2017-09-07] MEDS: RESP: ALBUTEROL 2.5 MG/IPRATROPIUM 0.5 MG NEB (SCH) NEB ×2 (08:09→12:01)
--- NOTE | 2017-09-07 08:16 | HHI.PR ---
Subjective Remarks Late entry for date of service 09/06/2017. Nursing denies any deterioration since last night. Pt feeling good. no SOB. Objective Vital Signs Date Time Temp Pulse Resp B/P (MAP) Pulse Ox O2 Delivery O2 Flow Rate FiO2 09/07/17 00:00 Nasal Cannula 1.00 09/07/17 00:00 99.1 83 17 151/74 (99) 100 09/06/17 20:00 98.7 77 18 157/84 (108) 100 09/06/17 20:00 Nasal Cannula 1.00 09/06/17 19:53 93 21 09/06/17 19:01 99.3 80 18 140/80 (100) 90 09/06/17 16:00 Room Air 09/06/17 12:02 99.5 90 18 146/86 (106) 93 09/06/17 12:00 Room Air I/O 09/06/17 09/06/17 09/06/17 09/07/17 09/07/17 09/07/17 07:00 15:00 23:00 07:00 15:00 23:00 Intake Total 1700 ml 580 ml 240 ml Output Total 750 ml 1000 ml 1200 ml Balance 950 ml -420 ml -960 ml Intake Oral 600 ml 480 ml 240 ml IV Total 1100 ml 100 ml Output Urine Total 750 ml 1000 ml 1200 ml # Bowel Movements 0 0 0 Result Diagram: 09/04/17 0724 09/06/17 1650 Objective Remarks sitting up in bed, AA Relatively clear breath sounds bilaterally, unlabored breathing, no cyanosis, on room air A/P Assessment and Plan Assessment and Plan This is a 56-year-old renal transplant who was admitted with sepsis, acute hypoxic respiratory failure secondary to pneumonia. LLL PNA - cefepime continued per ID, Renal transplant status with chronic renal failure -Nephrology following, monitoring tacrolimus levels - prednisone and sodium bicarb per nephro Hypertension/type 2 diabetes/TIA/history of CHF -to be remained discontinued off of Lasix and Zestoretic per nephro for the foreseeable future -Continue home metoprolol -On insulin sliding scale. Also on Levemir. Hypoglycemic protocol. DVT prophylaxis with heparin. Discharge Planning Patient to cont abx per ID Jarod Pina MD Sep 07, 2017 08:16
[2017-09-07] MEDS: FLUTICASONE PROPIONATE 50 MCG/ACT 16 GM NASAL SPRAY EACH NARE SCH (09:00)
[2017-09-07] MEDS: METOPROLOL SUCCINATE 50 MG EXTENDED RELEASE TAB PO SCH (09:29)
[2017-09-07] MEDS: SODIUM BICARBONATE 650 MG TAB PO SCH (09:29)
[2017-09-07] MEDS: TACROLIMUS 5 MG CAP PO SCH (09:30)
[2017-09-07] MEDS: ATORVASTATIN 80 MG TAB PO SCH (09:30)
[2017-09-07] MEDS: predniSONE 10 MG TAB PO SCH (09:30)
[2017-09-07] MEDS: SODIUM CHLORIDE 0.9% FLUSH 10 ML FLUSH IV FLUSH SCH (09:30)
[2017-09-07] MEDS: hydrALAZINE HCL 25 MG TAB PO SCH ×2 (09:30→12:51)
[2017-09-07] MEDS: PIPERACIL-TAZO 2.25 GM PREMIX 50 ML IV SCH (09:30)
[2017-09-07] MEDS: MYCOPHENOLATE MOFETIL 500 MG TAB PO SCH (09:30)
[2017-09-07] MEDS: INSULIN ASPART SUPPLEMENTAL SCALE SQ SCH ×2 (09:31→12:51)
[2017-09-07] MEDS: VITAMIN B CMPLX/VITC/FOLIC AC CAP PO SCH (09:32)
[2017-09-07] MEDS: INSULIN DETEMIR 100 UNITS/ML VIAL SQ SCH (09:32)
--- NOTE | 2017-09-07 11:14 | HHI.IDPN ---
Note Infectious Disease Note Patient says he feels okay. Anxious to go home. Continues with coughing. Denies shortness of breath. Denies chest pain. Denies chills. Not doing much activity. Expresses dissatisfaction with the food that he has been given. Afebrile. 56-year-old black male who presented to the emergency department with shortness of breath on 09/01/2017. The patient states that he woke up in the morning and suddenly developed shortness of breath and felt like someone had dropped heavy weight on his chest. He was also complaining of left sided chest pain. The patient was recently treated for influenza in July. PAST MEDICAL HISTORY: Hypertension, diabetes mellitus, congestive heart failure while he was receiving dialysis, TIA, renal transplantation in 04/2009. ALLERGIES: NO KNOWN DRUG ALLERGIES. THE PATIENT IS ALLERGIC PEAS, BEETS, BANANA, TOMATO, LATEX. MEDICATIONS: Current Medications Medications (Trade) Dose Ordered Sig/Yasmany Route PRN Reason Start Time Stop Time Status Last Admin Dose Admin Sodium Chloride 1,000 ml @ 100 mls/hr Q10H IV 09/01/17 14:34 09/06/17 04:34 Sodium Chloride (NS Flush) 2 ml UNSCH PRN IV FLUSH FLUSH AFTER USING IV ACCESS 09/01/17 14:45 Sodium Chloride (NS Flush) 2 ml BID IV FLUSH 09/01/17 21:00 09/07/17 09:30 Heparin Sodium (Porcine) (Heparin Inj) 5,000 units Q8HR SQ 09/01/17 22:00 Naloxone HCl (Narcan Inj) 0.4 mg UNSCH PRN IV PUSH SEE LABEL COMMENTS 09/01/17 14:45 Acetaminophen (Tylenol) 650 mg Q4H PRN PO fever >101 09/01/17 16:15 09/05/17 13:48 Amlodipine Besylate (Norvasc) 10 mg DAILY PO 09/02/17 09:00 09/07/17 09:29 Atorvastatin Calcium (Lipitor) 80 mg EVERY OTHER DAY PO 09/03/17 09:00 09/07/17 09:30 Vitamin B Complex/ Vit C/Folic Acid (Nephrocaps) 1 cap DAILY PO 09/02/17 09:00 09/07/17 09:32 Fluticasone Propionate (Flonase Sergio Spr) 1 spray BID EACH NARE 09/01/17 21:00 09/05/17 09:11 Hydralazine HCl (Apresoline) 25 mg TID PO 09/02/17 09:00 09/07/17 09:30 Levothyroxine Sodium (Synthroid) 25 mcg DAILY@0600 PO 09/02/17 06:00 09/07/17 06:26 Mycophenolate Mofetil (Cellcept) 500 mg BID PO 09/01/17 21:00 09/07/17 09:30 Pantoprazole Sodium (Protonix) 20 mg DAILY PRN PO REFLUX 09/01/17 19:15 Prednisone (Deltasone) 10 mg DAILY PO 09/02/17 09:00 09/07/17 09:30 Sodium Bicarbonate (Sodium Bicarbonate) 1,300 mg BIDPC PO 09/02/17 09:00 09/07/17 09:29 Tacrolimus (Prograf) 5 mg Q12H PO 09/01/17 21:00 09/07/17 09:30 Metoprolol Succinate (Toprol Xl) 100 mg DAILY PO 09/02/17 09:00 09/07/17 09:29 Ondansetron HCl (Zofran Odt) 4 mg Q12H PRN PO NAUSEA/VOMITING 09/01/17 22:00 09/05/17 15:20 Insulin Detemir (Levemir Inj) 20 units DAILY SQ 09/02/17 09:00 09/07/17 09:32 Insulin Aspart (NovoLOG SUPPLEMENTAL SCALE) 1 ACHS SLIDING SCALE SQ 09/02/17 21:00 09/07/17 09:31 Dextrose (D50w (Vial) Inj) 50 ml UNSCH PRN IV PUSH HYPOGLYCEMIA-SEE COMMENTS 09/02/17 17:15 Glucagon (Glucagon Inj) 1 mg UNSCH PRN OTHER HYPOGLYCEMIA-SEE COMMENTS 09/02/17 17:15 Albuterol/ Ipratropium (Duoneb Neb) 1 ampule Q6HR WHILE AWAKE NEB NEB 09/04/17 14:00 09/07/17 08:09 Acetylcysteine (Mucomyst 10% Neb) 2 ml Q6HR WHILE AWAKE NEB NEB 09/05/17 20:00 09/07/17 08:09 Levofloxacin/ Dextrose 50 ml @ 50 mls/hr Q24H IV 09/06/17 20:00 09/06/17 21:16 Piperacillin Sod/ Tazobactam Sod 50 ml @ 100 mls/hr Q12HR IV 09/06/17 21:00 09/07/17 09:30 OBJECTIVE: Vital Signs Date Time Temp Pulse Resp B/P (MAP) Pulse Ox O2 Delivery O2 Flow Rate FiO2 09/07/17 08:00 98.0 85 20 159/94 (115) 93 09/07/17 08:00 Room Air 09/07/17 00:00 Nasal Cannula 1.00 09/07/17 00:00 99.1 83 17 151/74 (99) 100 09/06/17 20:00 98.7 77 18 157/84 (108) 100 09/06/17 20:00 Nasal Cannula 1.00 09/06/17 19:53 93 21 09/06/17 19:01 99.3 80 18 140/80 (100) 90 09/06/17 16:00 Room Air 09/06/17 12:02 99.5 90 18 146/86 (106) 93 09/06/17 12:00 Room Air Laboratory Tests Test 09/06/17 16:50 Blood Urea Nitrogen 62 MG/DL Creatinine 3.40 MG/DL Random Glucose 292 MG/DL Calcium Level 8.5 MG/DL Sodium Level 137 MEQ/L Potassium Level 5.2 MEQ/L Chloride Level 110 MEQ/L Carbon Dioxide Level 17.8 MEQ/L Anion Gap 9 MEQ/L Estimat Glomerular Filtration Rate 23 ML/MIN IMAGING: Chest X-Ray 09/05/17 0000 Signed Impressions: Service Date/Time: Tuesday, September 05, 2017 15:26 - CONCLUSION: 1. Confluent airspace disease on the left is now more patchy in appearance. Slight increase in involvement of the left upper lobe. Findings remain most characteristic of bronchopneumonia. No pneumothorax. Adam Martin MD Chest X-Ray 09/01/17 1206 Signed Impressions: Service Date/Time: Friday, September 01, 2017 12:32 - CONCLUSION: Lingular and left lower lobe consolidation likely pneumonia. Treatment and followup to resolution.. Kareem Burnham MD Chest CT 09/01/17 0000 Signed Impressions: Service Date/Time: Friday, September 01, 2017 16:45 - CONCLUSION: Dense consolidative changes left lung consistent with inflammatory process. Followup to resolution is suggested. Elvin Linn MD FACR PHYSICAL EXAMINATION: GENERAL: No acute distress. Awake, alert and oriented. HEENT: No icterus. Oropharynx moist mucosal without lesions. NECK: Supple without adenopathy. LUNGS: Bilateral rhonchi same. HEART: Regular rate and rhythm without murmurs, rubs or gallops. ABDOMEN: Bowel sounds present, soft, no tenderness appreciated. Patient has slight bulge at the right lower abdomen where the kidney transplant is located. No tenderness. EXTREMITIES: No clubbing, cyanosis or edema. SKIN: No rash. NEUROLOGIC: No gross focal findings. PSYCHIATRIC: Calm and cooperative. IMPRESSION: 1. Sepsis on presentation. 2. Left lung pneumonia. 3. 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 4. Leukocytosis secondary to infection. WBC decreasing. 5. Acute on chronic kidney disease. RECOMMENDATIONS: 1. Follow chest x-ray today. 2. Continue Zosyn. 3. Continue Levaquin. 4. Monitor white blood cell count. Increase activity and follow the chest x-ray today to determine antibiotic choice since he has no sputum culture to guide treatment. PS: CXR looks improved to me. Okay to discharge on PO Levaquin 250mg daily x 10 days. Benjamin Small MD Sep 07, 2017 11:13
--- NOTE | 2017-09-07 11:35 | RADRPT ---
EXAM DATE/TIME: 09/07/2017 11:12 [facility] COMPARISON: CHEST PA & LAT, September 05, 2017, 15:26. INDICATIONS : Short of breath, evaluate pneumonia MEDICAL HISTORY : pneumonia, sepsis SURGICAL HISTORY : None. ENCOUNTER: Subsequent ACUITY: 4 - 6 days PAIN SCORE: 0/10 LOCATION: Bilateral chest FINDINGS: The examination demonstrates diffuse infiltrate throughout the left lung. There is minimal left basil ar effusion. Exam would be concerning for pneumonia. Study is stable compared to previous dated . The right lung is clear. The heart is normal in size. The mediastinal contours are within normal limi ts. The visualized bony structures are grossly intact. CONCLUSION: 1. Diffuse infiltrate on the left concerning for pneumonia. Unchanged from prior. Kam Linn MD on September 07, 2017 at 11:33 Board Certified Radiologist. This report was verified electronically.
[2017-09-07 12:00] VITALS: BP 145/83; PULSE 78; RESP 20; TEMP 97.9; O2SAT 96
--- NOTE | 2017-09-07 13:36 | HHI.DS ---
Discharge Summary Admission Date Sep 01, 2017 at 14:35 Discharge Date: Sep 07, 2017 Admitting Diagnosis Severe Sepsis, PNA. (1) PNA (pneumonia) ICD Code: J18.9 - Pneumonia Status: Acute Procedures none Brief History - From Admission History from patient, ER physician communication, interview of medical records. short of breath all of a sudden last night has been coughing few days yellow color sputum fever of 104 at home just today had fever yesterday as well diarrhea today - 3 x today, no black or red color no urinary burning or pain or frequency 2 weeks ago had flu- here in ER 08/20 and prescribed tamiflu went away and it was ok, but all started yesterday cxr on 08/20 showing right hilar mass reports of chest pain on the left started this am woke up because of short of breath no radiation no association not moving around much for past couple of days due to illness no pains in abdomen no pains in flank CBC/BMP: 09/04/17 0724 09/06/17 1650 Significant Findings Laboratory Tests Test 09/06/17 16:50 Blood Urea Nitrogen 62 MG/DL (7-18) Creatinine 3.40 MG/DL (0.60-1.30) Random Glucose 292 MG/DL (74-106) Potassium Level 5.2 MEQ/L (3.5-5.1) Chloride Level 110 MEQ/L (98-107) Carbon Dioxide Level 17.8 MEQ/L (21.0-32.0) Estimat Glomerular Filtration Rate 23 ML/MIN (>89) PE at Discharge Overall clear breath sounds with very minimal crackles in the left base Hospital Course Patient was admitted. Started on IV antibiotics, infectious disease and nephrology were both consulted given the patient's comorbidities of immunosuppression with her renal transplant. Patient's symptoms eventually improved, was weaned down to room air. Chest x-ray showed interval improvement. Patient has met maximal benefit from hospitalization is clinically stable for discharge. Patient was instructed to stop taking his home Lasix and HCTZ/lisinopril per nephrology. Pt Condition on Discharge: Stable Discharge Disposition: Discharge Home Discharge Time: <= 30 minutes Discharge Instructions DIET: Follow Instructions for: Renal Failure Diet Activities you can perform: Regular-No Restrictions Follow up Referrals: Appointment for Follow Up with [facility] Nephrology - 1 Week with Genny Pereira MD PCP Follow-up - 1 Week PCP Follow-up with LOW PCP Follow-up with [facility] Continued Medications: Amlodipine (Amlodipine) 10 Mg Tab 10 MG PO DAILY for Blood Pressure Management, #31 TAB 3 Refills Atorvastatin (Lipitor) 80 Mg Tab 80 MG PO EVERY OTHER DAY for Cholesterol Management, #30 TAB 0 Refills B-Complex W/ C & Folic Acid (Nephrocaps) 1 Cap 1 CAP PO DAILY for Nutritional Supplement, #30 CAP 0 Refills If on dialysis, take after treatment. Cholecalciferol (D 400) 400 Unit Tab 400 UNITS PO DAILY for Nutritional Supplement, TAB Fluticasone Nasal [place] (Fluticasone Nasal [place]) 50 Mcg/Act Naspr 1 SPRAY EACH NARE BID for Allergy Management, #1 BOTTLE 0 Refills 50 mcg/spray Hydralazine HCl (Hydralazine HCl) 25 Mg Tablet 25 MG PO TID for Blood Pressure Management, #90 TAB 0 Refills Take with meals Insulin Glargine Inj (Lantus Solostar Pen Inj) 300 Unit/3 Ml Pen 20 UNITS SQ DAILY for Blood Sugar Management, #15 PEN 0 Refills Insulin Lispro (Human) Inj (Humalog Kwikpen Pen Inj) 300 Unit/3 Ml Pen 0 SQ ACHS for Blood Sugar Management, PEN 0 Refills Levothyroxine (Levothyroxine) 25 Mcg Tab 25 MCG PO DAILY for Thyroid, #30 TAB 3 Refills Magnesium Gluconate (Magnesium Gluconate) 500 Mg Tab 500 MG PO DAILY for Nutritional Supplement, TAB 0 Refills Metoprolol Succinate ER 24 HR (Metoprolol Succinate ER 24 HR) 100 Mg Tab 100 MG PO DAILY, #30 TAB 3 Refills Mycophenolate (Mycophenolate) 500 Mg Tab 500 MG PO BID for Immunosuppression, #120 TAB 0 Refills Ondansetron (Zofran) 4 Mg Tab 4 MG PO Q12HR PRN for NAUSEA OR VOMITING, #30 TAB 0 Refills Pantoprazole (Protonix) 20 Mg Tab 20 MG PO DAILY PRN for REFLUX, #30 TAB 3 Refills Prednisone (Prednisone) 10 Mg Tab 10 MG PO DAILY, TAB 0 Refills Sodium Bicarbonate (Sodium Bicarbonate) 650 Mg Tab 1300 MG PO BIDPC, #60 TAB 0 Refills Tacrolimus (Tacrolimus) 5 Mg Cap 5 MG PO Q12H for Prevent Transplant Reject, #60 CAP 0 Refills Discontinued Medications: Furosemide (Lasix) 40 Mg Tab 40 MG PO BID, #60 TAB 0 Refills Lisinopril-Hctz (Lisinopril-Hctz) 20-25 Mg Tab 1 TAB PO DAILY for Blood Pressure Management, #30 TAB 3 Refills Jarod Pina MD Sep 07, 2017 13:36
== END 2017-09-07 13:03 | disposition home or self-care (01) | DRG 871 ==
LOC: NEPE 11:39 → NEDA 14:35 → NEDH 19:36 → HCIS 09-02 13:37 → N04A 09-03 22:32
PROVIDERS: ADMIT Hospitalist; ATTEND Hospitalist
DX: A41.9 Sepsis, unspecified organism (principal); J18.9 Pneumonia, unspecified organism; J96.01 Acute respiratory failure with hypoxia; N17.9 Acute kidney failure, unspecified; Z94.0 Kidney transplant status; R65.20 Severe sepsis without septic shock; R19.7 Diarrhea, unspecified; E78.5 Hyperlipidemia, unspecified; E55.9 Vitamin D deficiency, unspecified; E11.22 Type 2 diabetes mellitus with diabetic chronic kidney disease; I12.9 Hypertensive chronic kidney disease with stage 1 through stage 4 chronic kidney disease, or unspecified chronic kidney disease; N18.9 Chronic kidney disease, unspecified; Z79.4 Long term (current) use of insulin; Z86.73 Personal history of transient ischemic attack (TIA), and cerebral infarction without residual deficits; Z91.040 Latex allergy status
CPT/HCPCS: 71045; 71046; 71250; 76937; 80048; 80053; 80197; 81001; 82550; 82552; 82948; 83605; 83690; 83735; 84100; 84484; 85007; 85025; 85027; 85610; 85730; 87040; 87070; 87205; 87328; 87329; 87506; 87804; 93005; 94640; 94664; 96365; 96375; J0692; J1644; J1815; J1956; J2543; J3370; J7030; J7050; J7507; J7512; J7517; J7608

== ENCOUNTER 2017-12-05 11:27 | Inpatient (IN) | payer OTHER, MEDICAID, MEDICARE ==
[~2017-12-05] VITALS: Ht 180.3 cm; Wt 69.0 kg
[2017-12-05] VITALS (12 sets, daily range): BP systolic 101–172; BP diastolic 62–94; PULSE 89–110; RESP 18–22; TEMP 98.7–98.9; O2SAT 92–97
[~2017-12-05 11:27] MED LIST changes: -ATOR40TA16 PO; -BACL10TA PO; -CHLO.12%30 SWISH-SPIT; -CHOL400D2 PO; +CHOL400T17 PO; -FURO1TAB60 PO; -GUAISYP4 PO; +HYDR-3799 PO; -HYDR-3801 PO; -INSU-92 SQ; +LIPI80TA PO; -LISI20TA3 PO; -OSEL75 PO; -PRED-503 PO; +PRED10 PO
--- NOTE | 2017-12-05 11:55 | PD ---
HPI Chief Complaint: Fever Time Seen by Provider: 11:38 Travel History International Travel<30 days: No Contact w/Intl Traveler<30days: No Traveled to known affect area: No History of Present Illness HPI 57-year-old male the presents to the ED for evaluation of fever, congestion and shortness of breath since Wednesday. Per patient he has a history of liver transplant follows with Dr. Pereira for this. He takes immunosuppressants. Per patient has had pneumonia in the past and feels similar to it. He states that he feels like he got hit by a ton of bricks. Per patient he is coughing but nothing comes up. Denies any abdominal pain but states having some chest discomfort and shortness of breath when he coughs. Has a history of CHF as well. Denies any sick contacts. No recent travel. Allergies to no medications. No urinary or bowel movement issues. States that currently his discomfort is 3 out of 10. Has not seen anybody for this. Has not taken any antibiotics recently. States that his fever has been as high as 102. States that currently he feels like he has body aches and chills. Per patient his told him that sometimes during the night he stops breathing. Denies any other medical issues at this time. Denies any sore throat, ear pain. PFSH Past Medical History Hx Anticoagulant Therapy: No Asthma: No Blood Disorders: No Anxiety: No Depression: No Heart Rhythm Problems: No Cancer: No Cardiac Catheterization: No Cardiovascular Problems: Yes High Cholesterol: Yes Chemotherapy: No Chest Pain: No Congestive Heart Failure: Yes (2007) COPD: No Cerebrovascular Accident: Yes (TIA) Diabetes: Yes Diminished Hearing: No Endocrine: Yes Gastrointestinal Disorders: Yes (GERD) GERD: No Genitourinary: No Hepatitis: No Hiatal Hernia: No Heparin Induced Thrombocytopen: No Hypertension: Yes Immune Disorder: No Implanted Vascular Access Dvce: No Kidney Stones: No Musculoskeletal: No Neurologic: No Psychiatric: No Reproductive: No Respiratory: No Immunizations Current: No Radiation Therapy: No Renal Failure: Yes (KIDNEY TRANSPLANT) Sleep Apnea: No Thyroid Disease: Yes Ulcer: No Past Surgical History Abdominal Surgery: Yes (ABD AND INGUINAL HERNIA REPAIR) AICD: No Body Medical Devices: KIDNEY TRANPLANT R Cardiac Surgery: No Coronary Artery Bypass Graft: No Ear Surgery: No Eye Surgery: No Genitourinary Surgery: Yes (R KIDNEY TRANSPLANT 2008) Gynecologic Surgery: No Joint Replacement: No Oral Surgery: No Pacemaker: No Thoracic Surgery: No Other Surgery: Yes (fistula, ACL, hernia, kidney transplant 2008) Social History Alcohol Use: No Tobacco Use: No Substance Use: No Allergies-Medications (Allergen,Severity, Reaction): Coded Allergies: banana (Unverified Allergy, Severe, HIVES, 09/01/17) beet (Unverified Allergy, Severe, HIVES, 09/01/17) latex (Unverified Allergy, Severe, Hives and rash, 09/01/17) peas (Unverified Allergy, Severe, HIVES, 09/01/17) Uncoded Allergies: FRESH TOMATO (Allergy, Severe, 12/04/16) HIVES CAN HAVE KETCHUP Reported Meds & Prescriptions Reported Meds & Active Scripts Active Lantus Solostar Pen Inj (Insulin Glargine) 300 Unit/3 Ml Pen 20 Units SQ DAILY Zofran (Ondansetron HCl) 4 Mg Tab 4 Mg PO Q12HR PRN Protonix (Pantoprazole Sodium) 20 Mg Tab 20 Mg PO DAILY PRN Metoprolol Succinate ER 24 HR (Metoprolol Succinate) 100 Mg Tab 100 Mg PO DAILY Levothyroxine (Levothyroxine Sodium) 25 Mcg Tab 25 Mcg PO DAILY Amlodipine (Amlodipine Besylate) 10 Mg Tab 10 Mg PO DAILY Tacrolimus 5 Mg Cap 5 Mg PO Q12H Reported Hydralazine HCl 25 Mg Tablet 25 Mg PO TID Take with meals Lipitor (Atorvastatin Calcium) 80 Mg Tab 80 Mg PO EVERY OTHER DAY D 400 (Cholecalciferol) 400 Unit Tab 400 Units PO DAILY Prednisone 10 Mg Tab 10 Mg PO DAILY Humalog Kwikpen Pen Inj (Insulin Lispro (Human) Inj) 300 Unit/3 Ml Pen 0 SQ ACHS Fluticasone Nasal [place] 50 Mcg/Act Naspr 1 [place] EACH NARE BID 50 mcg/spray Magnesium Gluconate 500 Mg Tab 500 Mg PO DAILY Sodium Bicarbonate 650 Mg Tab 1,300 Mg PO BIDPC Mycophenolate (Mycophenolate Mofetil) 500 Mg Tab 500 Mg PO BID Nephrocaps (B-Complex W/ C & Folic Acid) 1 Cap 1 Cap PO DAILY If on dialysis, take after treatment. Review of Systems Except as stated in HPI: all other systems reviewed are Neg Physical Exam Narrative GENERAL: Well-nourished, well-developed patient in no apparent distress. SKIN: Warm and dry. HEAD: Atraumatic. Normocephalic. EYES: Pupils equal and round reactive to light and accommodation. No scleral icterus. No injection or drainage. ENT: No nasal bleeding or discharge. Mucous membranes pink and moist. TMs are clear with no sign of infection or perforation. No mastoid tenderness. Ear canals are intact bilaterally. No lymphadenopathy. Nostril mucosa is red and moist with clear mucus noted. No sinus tenderness to palpation noted. Tonsils are not enlarged or swollen. No ulvua Deviation. Tongue is midline. NECK: Trachea midline. No JVD. No meningeal signs noted CARDIOVASCULAR: Regular rate and rhythm. RESPIRATORY: No accessory muscle use. Clear to auscultation. Breath sounds equal bilaterally. GASTROINTESTINAL: Abdomen soft, non-tender, nondistended. Hepatic and splenic margins not palpable. MUSCULOSKELETAL: Extremities without clubbing, cyanosis, or edema. No obvious deformities. Full range of motion of the upper and lower extremities bilaterally. 2+ pulses bilaterally. NEUROLOGICAL: Awake and alert. No obvious cranial nerve deficits. Motor grossly within normal limits. Five out of 5 muscle strength in the arms and legs. Normal speech. PSYCHIATRIC: Appropriate mood and affect; insight and judgment normal. Data Data Last Documented VS Vital Signs Date Time Temp Pulse Resp B/P (MAP) Pulse Ox O2 Delivery O2 Flow Rate FiO2 12/05/17 13:43 104 22 152/78 (102) 95 Nasal Cannula 2.00 12/05/17 11:30 98.9 Orders Orders Electrocardiogram (12/05/17 11:48) Complete Blood Count With Diff (12/05/17 11:48) Comprehensive Metabolic Panel (12/05/17 11:48) Ckmb (Isoenzyme) Profile (12/05/17 11:48) Troponin I (12/05/17 11:48) Prothrombin Time / Inr (Pt) (12/05/17 11:48) Act Partial Throm Time (Ptt) (12/05/17 11:48) Blood Culture (12/05/17 11:48) Urinalysis - C+S If Indicated (12/05/17 11:48) Magnesium (Mg) (12/05/17 11:48) Influenzae A/B Antigen (12/05/17 11:48) Chest, Single Ap (12/05/17 11:48) Iv Access Insert/Monitor (12/05/17 11:48) Ecg Monitoring (12/05/17 11:48) Oximetry (12/05/17 11:48) Lactic Acid Sepsis Protocol (12/05/17 11:48) B-Type Natriuretic Peptide (12/05/17 11:48) Sodium Chlor 0.9% 1000 Ml Inj (Ns 1000 M (12/05/17 12:00) Ceftriaxone Inj (Rocephin Inj) (12/05/17 12:45) Azithromycin Inj (Zithromax Inj) (12/05/17 12:45) Sodium Chlor 0.9% 1000 Ml Inj (Ns 1000 M (12/05/17 13:00) Vascular Access Team Consult/P PRN (12/05/17 13:14) Vascular Poc Ultrasound (12/05/17 ) CKMB (12/05/17 12:15) CKMB% (12/05/17 12:15) Labs Laboratory Tests Test 12/05/17 12:15 White Blood Count 20.1 TH/MM3 Red Blood Count 4.09 MIL/MM3 Hemoglobin 9.8 GM/DL Hematocrit 30.9 % Mean Corpuscular Volume 75.6 FL Mean Corpuscular Hemoglobin 24.0 PG Mean Corpuscular Hemoglobin Concent 31.8 % Red Cell Distribution Width 17.2 % Platelet Count 251 TH/MM3 Mean Platelet Volume 9.1 FL Neutrophils (%) (Auto) 89.1 % Lymphocytes (%) (Auto) 3.6 % Monocytes (%) (Auto) 6.2 % Eosinophils (%) (Auto) 0.1 % Basophils (%) (Auto) 1.0 % Neutrophils # (Auto) 17.9 TH/MM3 Lymphocytes # (Auto) 0.7 TH/MM3 Monocytes # (Auto) 1.2 TH/MM3 Eosinophils # (Auto) 0.0 TH/MM3 Basophils # (Auto) 0.2 TH/MM3 CBC Comment AUTO DIFF Differential Total Cells Counted 100 Neutrophils % (Manual) 88 % Band Neutrophils % 4 % Lymphocytes % 1 % Monocytes % 6 % Neutrophils # (Manual) 18.7 TH/MM3 Myelocytes 1 % Differential Comment FINAL DIFF MANUAL Platelet Estimate NORMAL Platelet Morphology Comment NORMAL Ovalocytes 1+ Acanthocytes OCC Keratocytes OCC Prothrombin Time 10.5 SEC Prothromb Time International Ratio 1.0 RATIO Activated Partial Thromboplast Time 25.4 SEC Urine Color LIGHT-YELLOW Urine Turbidity CLEAR Urine pH 6.0 Urine Specific [place] 1.011 Urine Protein 300 mg/dL Urine Glucose (UA) 70 mg/dL Urine Ketones NEG mg/dL Urine Occult Blood NEG Urine Nitrite NEG Urine Bilirubin NEG Urine Urobilinogen LESS THAN 2.0 MG/DL Urine Leukocyte Esterase NEG Urine RBC 2 /hpf Urine WBC 1 /hpf Urine Squamous Epithelial Cells <1 /hpf Microscopic Urinalysis Comment CULT NOT INDICATED Blood Urea Nitrogen 91 MG/DL Creatinine 4.83 MG/DL Random Glucose 198 MG/DL Total Protein 6.8 GM/DL Albumin 2.7 GM/DL Calcium Level 8.8 MG/DL Magnesium Level 2.0 MG/DL Alkaline Phosphatase 70 U/L Aspartate Amino Transf (AST/SGOT) 27 U/L Alanine Aminotransferase (ALT/SGPT) 18 U/L Total Bilirubin 0.4 MG/DL Sodium Level 141 MEQ/L Potassium Level 5.0 MEQ/L Chloride Level 114 MEQ/L Carbon Dioxide Level 13.9 MEQ/L Anion Gap 13 MEQ/L Estimat Glomerular Filtration Rate 15 ML/MIN Lactic Acid Level 1.0 mmol/L Total Creatine Kinase 358 U/L Creatine Kinase MB 3.9 NG/ML Creatine Kinase MB % 1.1 % Troponin I 0.07 NG/ML B-Type Natriuretic Peptide 460 PG/ML MDM Medical Decision Making Medical Screen Exam Complete: Yes Emergency Medical Condition: Yes Medical Record Reviewed: Yes Interpretation(s) CBC & BMP Diagram 12/05/17 12:15 Total Protein 6.8, Albumin 2.7 L, Calcium Level 8.8, Magnesium Level 2.0, Alkaline Phosphatase 70, Aspartate Amino Transf (AST/SGOT) 27, Alanine Aminotransferase (ALT/SGPT) 18, Total Bilirubin 0.4 Last Impressions Chest X-Ray 12/05/17 1148 Signed Impressions: CONCLUSION: Bilateral pulmonary infiltrates are noted. lactic acid WNL UA negative Coags WNL troponin slightly elevated at 0.07 Differential Diagnosis Pneumonia versus sepsis versus influenza versus bacterial infection versus UTI versus kidney infection versus CHF Narrative Course 57-year-old male the presents to the ED for evaluation of fever and cold-like symptoms. Patient was properly examined and was found to have signs and symptoms concerning for pneumonia and possible sepsis. Labs and imaging order. Patient was given some IV fluids. Labs and imaging showed elevated white blood cell count, worsening kidney function as well as elevated troponin and possible bilateral pneumonia. At this time a recommend admission for further evaluation of this. Patient agrees. Patient will start IV antibiotics and fluids. Case discussed with my attending Dr. Haider who agrees to admission plan. Case discussed with Dr. Zhu who agrees to admission. Sepsis Criteria SIRS Criteria (2 or more): Heart rate over 90, WBC > 50881, < 4000 or > 10% bands Sepsis Criteria (SIRS+source): Infect source susp/known Criteria Outcome: Meets sepsis criteria Diagnosis Primary Impression: PNA (pneumonia) Qualified Codes: J18.1 - Lobar pneumonia, unspecified organism Additional Impressions: MEJIA (acute kidney injury) Sepsis Qualified Codes: A41.9 - Sepsis, unspecified organism Admitting Information Admitting Physician Requests: Admit Aston Culver Dec 05, 2017 11:55
[2017-12-05] MEDS ORDERED: SODIUM CHLOR 0.9% 1000 ML INJ 1,000 ML IV ONE ×2 (12:00→13:00)
--- NOTE | 2017-12-05 12:23 | RADRPT ---
EXAM DATE: 12/05/2017 12:17 PM EDT AGE/SEX: 57 years / Male INDICATIONS: Fever, nausea, dizziness CLINICAL DATA: This is the patient's initial encounter. Patient reports that signs and symptoms have been present for 3 days and indicates a pain score of 4/10. MEDICAL/SURGICAL HISTORY: None. None. COMPARISON: [facility] [place] & [place], 09/07/2017. . FINDINGS: There is improved aeration on the left though hazy infiltrate remains in the left midlung and interva l development of patchy consolidation in the right lung diffusely. There are no effusions. Heart size normal. Osseous structures are intact. CONCLUSION: Bilateral pulmonary infiltrates are noted. Electronically signed by: Xavi Loyola MD 12/05/2017 12:22 PM EDT
[2017-12-05 12:41] LABS: AUTOMATED NEUTROPHIL # 17.9 TH/MM3 (1.8-7.7); BASOPHIL # 0.2 TH/MM3 (0-0.2); EOSINOPHIL % 0.1 % (0.0-4.0); HEMATOCRIT 30.9 % (39.0-51.0); HEMOGLOBIN 9.8 GM/DL (13.0-17.0); LYMPH % 3.6 % (9.0-44.0); LYMPHOCYTE # 0.7 TH/MM3 (1.0-4.8); MEAN CELL VOLUME 75.6 FL (80.0-100.0); MEAN CORPUSCULAR HGB CONC 31.8 % (32.0-36.0); MEAN PLATELET VOLUME 9.1 FL (7.0-11.0); MONO % 6.2 % (0.0-8.0); MONOCYTE # 1.2 TH/MM3 (0-0.9); NEUT % 89.1 % (16.0-70.0); PLATELET COUNT 251 TH/MM3 (150-450); RED BLOOD COUNT 4.09 MIL/MM3 (4.50-5.90); RED CELL DISTRIBUTION WIDTH 17.2 % (11.6-17.2); WHITE BLOOD COUNT 20.1 TH/MM3 (4.0-11.0)
[2017-12-05] MEDS ORDERED: cefTRIAXone INJ 1,000 MG in SODIUM CHLORIDE 0.9% INJ 100 ML IV ONE (12:45)
[2017-12-05] MEDS ORDERED: AZITHROMYCIN INJ 500 MG in SODIUM CHLOR 0.9% 250 ML INJ 250 ML IV ONE (12:45)
[2017-12-05 12:50] LABS: BILIRUBIN, URINE NEG (NEG); BLOOD, URINE NEG (NEG); GLUCOSE,URINE 70 mg/dL (NEG); KETONE, URINE NEG (NEG); NITRITE,URINE NEG (NEG); SQUAMOUS EPITHELIAL CELL URINE <1 /hpf (0-5); URINE COLOR LIGHT-YELLOW (YELLW/STRAW); URINE LEUKOCYTE ESTERASE NEG (NEG)
[2017-12-05 12:56] LABS: PROTHROMBIN TIME - PATIENT 10.5 SEC (9.8-11.6)
[2017-12-05 13:00] LABS: ALT (GPT) 18 U/L (12-78)
[2017-12-05 13:05] LABS: BANDS 4 % (0-6); LYMPHOCYTES 1 % (9-44); MONOCYTES 6 % (0-8); MYELOCYTES 1 % (0-0); NEUTROPHIL # MANUAL DIFF 18.7 TH/MM3 (1.8-7.7); POLYS (SEG NEUTROPHILS) 88 % (16-70)
[2017-12-05 13:06] LABS: ACANTHOCYTES OCC (NORMAL); KERATOCYTES OCC (NORMAL); OVALOCYTES 1+ (NORMAL)
[2017-12-05 13:23] LABS: ALBUMIN 2.7 GM/DL (3.4-5.0); ALKALINE PHOSPHATASE 70 U/L (45-117); BICARBONATE 13.9 MEQ/L (21.0-32.0); BLOOD UREA NITROGEN 91 MG/DL (7-18); CALCIUM 8.8 MG/DL (8.5-10.1); CHLORIDE 114 MEQ/L (98-107); CREATININE 4.83 MG/DL (0.60-1.30); GLOMERULAR FILTRATION RATE 15 ML/MIN (>89); GLUCOSE,RANDOM 198 MG/DL (74-106); SODIUM (NA) 141 MEQ/L (136-145); TOTAL BILIRUBIN ADULT 0.4 MG/DL (0.2-1.0); TOTAL PROTEIN 6.8 GM/DL (6.4-8.2); TROPONIN I 0.07 NG/ML (0.02-0.05)
[2017-12-05 13:24] LABS: AST (GOT) 27 U/L (15-37)
--- NOTE | 2017-12-05 14:38 | HHI.HP ---
HPI Service [facility] Primary Care Physician Unknown Admission Diagnosis Diagnoses: Chief Complaint: Shortness of breath Travel History International Travel<30 Days: No Contact w/Intl Traveler <30 Da: No Traveled to Known Affected Are: No History of Present Illness This is a 57-year-old male with history of diabetes mellitus, hypertension, congestive heart failure and kidney transplant on immunosuppressants who presented to the emergency department for fever, congestion and shortness of breath. 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 Pereira, he was doing fine until when he got home and ate [employer] for dinner. He started having chills, nausea, fever at 102, felt that he was hit by a ton of bricks, associated with cough, nonproductive, shortness of breath and watery nonbloody diarrhea. He denies abdominal pain, sick contacts, recent antibiotic use, sore throat, urinary symptoms, rash or vomiting. No recent travel. He states that he has generalized body aches rated as 3 out of 10. He claims compliance with his immunosuppressants. Of note, he was admitted in the hospital in July 2017 for pneumonia. Review of Systems ROS Limitations: Other (All other pertinent systems were reviewed and are negative.) Past Family Social History Past Medical History Hypertension Diabetes mellitus End-stage renal disease status post transplant in April 2009 Congestive heart failure TIA Past Surgical History Kidney transplant, right AV fistula PermCath placement ACL surgery on the left Reported Medications Lantus Solostar Pen Inj (Insulin Glargine) 300 Unit/3 Ml Pen 20 Units SQ DAILY Zofran (Ondansetron HCl) 4 Mg Tab 4 Mg PO Q12HR PRN Protonix (Pantoprazole Sodium) 20 Mg Tab 20 Mg PO DAILY PRN Metoprolol Succinate ER 24 HR (Metoprolol Succinate) 100 Mg Tab 100 Mg PO DAILY Levothyroxine (Levothyroxine Sodium) 25 Mcg Tab 25 Mcg PO DAILY Amlodipine (Amlodipine Besylate) 10 Mg Tab 10 Mg PO DAILY Tacrolimus 5 Mg Cap 5 Mg PO Q12H Hydralazine HCl 25 Mg Tablet 25 Mg PO TID Take with meals Lipitor (Atorvastatin Calcium) 80 Mg Tab 80 Mg PO EVERY OTHER DAY D 400 (Cholecalciferol) 400 Unit Tab 400 Units PO DAILY Prednisone 10 Mg Tab 10 Mg PO DAILY Humalog Kwikpen Pen Inj (Insulin Lispro (Human) Inj) 300 Unit/3 Ml Pen 0 SQ ACHS Fluticasone Nasal [place] 50 Mcg/Act Naspr 1 [place] EACH NARE BID 50 mcg/spray Magnesium Gluconate 500 Mg Tab 500 Mg PO DAILY Sodium Bicarbonate 650 Mg Tab 1,300 Mg PO BIDPC Mycophenolate (Mycophenolate Mofetil) 500 Mg Tab 500 Mg PO BID Nephrocaps (B-Complex W/ C & Folic Acid) 1 Cap 1 Cap PO DAILY If on dialysis, take after treatment. Allergies: Coded Allergies: banana (Unverified Allergy, Severe, HIVES, 09/01/17) beet (Unverified Allergy, Severe, HIVES, 09/01/17) latex (Unverified Allergy, Severe, Hives and rash, 09/01/17) peas (Unverified Allergy, Severe, HIVES, 09/01/17) Uncoded Allergies: FRESH TOMATO (Allergy, Severe, 12/04/16) HIVES CAN HAVE KETCHUP Family History dad- massive NM mom- staph infections Social History tried smoking only when at 15yo , but never smoked since then no etoh abuse , not even socially snorted cocaine, quit 15yrs ago Physical Exam Vital Signs Vital Signs Date Time Temp Pulse Resp B/P (MAP) Pulse Ox O2 Delivery O2 Flow Rate FiO2 12/05/17 13:43 104 22 152/78 (102) 95 Nasal Cannula 2.00 12/05/17 12:15 95 Room Air 12/05/17 11:30 98.9 99 22 160/83 (108) 92 Physical Exam GENERAL: Not in acute distress, well-nourished. HEAD: Atraumatic. Normocephalic. EYES: PERRL, full EOMs, no jaundice, nonicteric, pink conjunctivae ENT: Nose without bleeding. Airway patent. NECK: Trachea midline, no mass, no obvious thyromegaly. CARDIOVASCULAR: Tachycardic, regular rhythm, no murmurs. RESPIRATORY: Bilateral rhonchi and crackles, no wheezing. GASTROINTESTINAL: Abdomen soft, normal bowel sounds, non-tender, nondistended. NADIYA and exam deferred. MUSCULOSKELETAL: Extremities without clubbing, cyanosis, or edema. No joint tenderness. INTEGUMENTARY: Warm and dry, no rash of generalized distribution. NEUROLOGICAL: Awake, alert, oriented 3. No obvious cranial nerve deficits. Moves all 4 extremities, muscle strength testing 5 over 5. Motor and sensory grossly within normal limits. .Supple neck, no meningeal signs. Grossly negative cerebellar examination. No focal neurologic deficits. Laboratory Last Impressions Chest X-Ray 12/05/17 1148 Signed Impressions: CONCLUSION: Bilateral pulmonary infiltrates are noted. Laboratory Tests Test 12/05/17 12:15 White Blood Count 20.1 Red Blood Count 4.09 Hemoglobin 9.8 Hematocrit 30.9 Mean Corpuscular Volume 75.6 Mean Corpuscular Hemoglobin 24.0 Mean Corpuscular Hemoglobin Concent 31.8 Red Cell Distribution Width 17.2 Platelet Count 251 Mean Platelet Volume 9.1 Neutrophils (%) (Auto) 89.1 Lymphocytes (%) (Auto) 3.6 Monocytes (%) (Auto) 6.2 Eosinophils (%) (Auto) 0.1 Basophils (%) (Auto) 1.0 Neutrophils # (Auto) 17.9 Lymphocytes # (Auto) 0.7 Monocytes # (Auto) 1.2 Eosinophils # (Auto) 0.0 Basophils # (Auto) 0.2 CBC Comment AUTO DIFF Differential Total Cells Counted 100 Neutrophils % (Manual) 88 Band Neutrophils % 4 Lymphocytes % 1 Monocytes % 6 Neutrophils # (Manual) 18.7 Myelocytes 1 Differential Comment FINAL DIFF MANUAL Platelet Estimate NORMAL Platelet Morphology Comment NORMAL Ovalocytes 1+ Acanthocytes OCC Keratocytes OCC Prothrombin Time 10.5 Prothromb Time International Ratio 1.0 Activated Partial Thromboplast Time 25.4 Urine Color LIGHT-YELLOW Urine Turbidity CLEAR Urine pH 6.0 Urine Specific [place] 1.011 Urine Protein 300 Urine Glucose (UA) 70 Urine Ketones NEG Urine Occult Blood NEG Urine Nitrite NEG Urine Bilirubin NEG Urine Urobilinogen LESS THAN 2.0 Urine Leukocyte Esterase NEG Urine RBC 2 Urine WBC 1 Urine Squamous Epithelial Cells <1 Microscopic Urinalysis Comment CULT NOT INDICATED Blood Urea Nitrogen 91 Creatinine 4.83 Random Glucose 198 Total Protein 6.8 Albumin 2.7 Calcium Level 8.8 Magnesium Level 2.0 Alkaline Phosphatase 70 Aspartate Amino Transf (AST/SGOT) 27 Alanine Aminotransferase (ALT/SGPT) 18 Total Bilirubin 0.4 Sodium Level 141 Potassium Level 5.0 Chloride Level 114 Carbon Dioxide Level 13.9 Anion Gap 13 Estimat Glomerular Filtration Rate 15 Lactic Acid Level 1.0 Total Creatine Kinase 358 Creatine Kinase MB 3.9 Creatine Kinase MB % 1.1 Troponin I 0.07 B-Type Natriuretic Peptide 460 Date/Time Source Procedure Growth Status 12/05/17 12:13 Blood Peripheral Aerobic Blood Culture Pending Received 12/05/17 12:13 Blood Peripheral Anaerobic Blood Culture Pending Received 12/05/17 12:15 Nasal Washing Influenza Types A,B Antigen (PARAMJIT) - Final NEGATIVE FOR FLU A AND B ANTIGEN.... Complete Result Diagram: 12/05/17 1215 12/05/17 1215 Imaging Last Impressions Chest X-Ray 12/05/17 1148 Signed Impressions: CONCLUSION: Bilateral pulmonary infiltrates are noted. Caprini VTE Risk Assessment Caprini VTE Risk Assessment: Mod/High Risk (score >= 2) Caprini Risk Assessment Model Point Value = 1 Point Value = 2 Point Value = 3 Point Value = 5 Age 41-60 Minor surgery BMI > 25 kg/m2 Swollen legs Varicose veins or History of unexplained or recurrent spontaneous Oral contraceptives or hormone replacement Sepsis (< 1 month) Serious lung disease, including pneumonia (< 1 month) Abnormal pulmonary function Acute myocardial infarction Congestive heart failure (< 1 month) History of inflammatory bowel disease Medical patient at bed rest Age 61-74 Arthroscopic surgery Major open surgery (> 45 min) Laparoscopic surgery (> 45 min) Malignancy Confined to bed (> 72 hours) Immobilizing plaster cast Central venous access Age >= 75 History of VTE Family history of VTE Factor V Leiden Prothrombin [id number] Lupus anticoagulant Anticardiolipin antibodies Elevated serum homocysteine Heparin-induced thrombocytopenia Other congenital or acquired thrombophilia Stroke (< 1 month) Elective arthroplasty Hip, pelvis, or leg fracture Acute spinal cord injury (< 1 month) Prophylaxis Regimen Total Risk Factor Score Risk Level Prophylaxis Regimen 0-1 Low Early ambulation 2 Moderate Order ONE of the following: *Sequential Compression Device (SCD) *Heparin 5000 units SQ BID 3-4 Higher Order ONE of the following medications: *Heparin 5000 units SQ TID *Enoxaparin/Lovenox 40 mg SQ daily (WT < 150 kg, CrCl > 30 mL/min) *Enoxaparin/Lovenox 30 mg SQ daily (WT < 150 kg, CrCl > 10-29 mL/min) *Enoxaparin/Lovenox 30 mg SQ BID (WT < 150 kg, CrCl > 30 mL/min) AND/OR *Sequential Compression Device (SCD) 5 or more Highest Order ONE of the following medications: *Heparin 5000 units SQ TID (Preferred with Epidurals) *Enoxaparin/Lovenox 40 mg SQ daily (WT < 150 kg, CrCl > 30 mL/min) *Enoxaparin/Lovenox 30 mg SQ daily (WT < 150 kg, CrCl > 10-29 mL/min) *Enoxaparin/Lovenox 30 mg SQ BID (WT < 150 kg, CrCl > 30 mL/min) AND *Sequential Compression Device (SCD) Assessment and Plan Assessment and Plan This is a 57-year-old male with history of diabetes mellitus, kidney transplant on immunosuppressants presenting with shortness of breath Sepsis secondary to community-acquired pneumonia in the background of chronic immunosuppression -patient has cough, nonproductive, fever, leukocytosis, tachycardia, tachypnea, which chest x-ray showing bilateral infiltrates. Lactic acid is within normal limits. Check sputum culture, rapid flu, strep and Legionella antigen, patient received ceftriaxone and azithromycin from the emergency department, start Zosyn and azithromycin because of chronic immunosuppression. Will hold off on vancomycin for now because of ESRD, start if without any improvement. Patient also has chest pain, likely for pneumonia, rule out cardiac source, check serial troponin and EKG, initial troponin is 0.07 , initial EKG reviewed, sinus tachycardia, no signs of ischemia. Status post 2 L of normal saline from the emergency department. Diarrhea-rule out infectious source, check stool culture, including rotavirus, C diff, start Flagyl. No recent antibiotic use. Diabetes mellitus-restart Lantus, start sliding scale insulin Hypertension-restart metoprolol and Norvasc End-stage renal disease, status post kidney transplant-restart tacrolimus, prednisone, mycophenolate. Continue renal medications, consult nephrology Dr. Pereira. Anemia-monitor, likely microcytic, check iron panel. DVT prophylaxis: Heparin Physician Certification 2 Midnight Certification Type: Admission for Inpatient Services Order for Inpatient Services The services are ordered in accordance with Medicare regulations or non- Medicare payer requirements, as applicable. In the case of services not specified as inpatient-only, they are appropriately provided as inpatient services in accordance with the 2-midnight benchmark. Estimated LOS (days): 3 days is the estimated time the patient will need to remain in the hospital, assuming treatment plan goals are met and no additional complications. Post-Hospital Plan: Home Cheryl Zhu MD Dec 05, 2017 14:38
[2017-12-05] MEDS ORDERED: RESP: ALBUTEROL 2.5 MG/IPRATROPIUM 0.5 MG NEB (PRN) INH (15:15)
[2017-12-05] MEDS ORDERED: DEXTROSE 50% IN WATER 50 ML VIAL(D50) IV PUSH PRN (15:15)
[2017-12-05] MEDS ORDERED: ONDANSETRON HCL 4 MG/2 ML VIAL IV PUSH PRN (15:15)
[2017-12-05] MEDS: HEPARIN SODIUM - SQ 10,000 UNITS/ML VIAL SQ SCH ×2 (15:15→22:00)
[2017-12-05] MEDS ORDERED: GLUCAGON 1 MG/ML VIAL OTHER PRN (15:15)
[2017-12-05] MEDS ORDERED: SODIUM CHLORIDE 0.9% FLUSH 10 ML FLUSH IV FLUSH PRN (15:15)
[2017-12-05] MEDS ORDERED: ONDANSETRON ODT 4 MG TAB PO PRN (15:30)
[2017-12-05] MEDS ORDERED: TACROLIMUS 5 MG CAP PO SCH (15:30)
[2017-12-05] MEDS ORDERED: FLUTICASONE PROPIONATE 50 MCG/ACT 16 GM NASAL SPRAY EACH NARE PRN (15:30)
[2017-12-05] MEDS ORDERED: PANTOPRAZOLE SOD 20 MG DELAYED RELEASE TAB PO PRN (15:30)
--- NOTE | 2017-12-05 16:30 | PD.CONS ---
[facility] Service Nephrology Consult Requested By Dr. Zhu Reason for Consult Status post kidney transplant with failing allograft Primary Care Physician Unknown History of Present Illness Patient is a 57-year-old -[place] male who has seen me on Wednesday and at that time he has elevated BUN and creatinine, he was told to consider going back on dialysis, he he went back home and ate [employer] after that he got sick , developed cough nonproductive, nausea and nonbloody diarrhea, he felt very tired and weak and had shortness of breath as well. He came in with these complaints and found to have bilateral pulmonary infiltrate and a high WBC count , with a BUN of 91 and creatinine around 4.83. He has received kidney transplant from [facility] in 2008 and has diabetic changes in the transplant kidney, focal segmental glomerulosclerosis. Review of Systems Constitutional: COMPLAINS OF: Fatigue Respiratory: COMPLAINS OF: Cough, Shortness of breath Gastrointestinal: COMPLAINS OF: Diarrhea, Nausea Musculoskeletal: COMPLAINS OF: Joint pain, Back pain Psychiatric: COMPLAINS OF: Anxiety Past Family Social History Allergies: Coded Allergies: banana (Unverified Allergy, Severe, HIVES, 09/01/17) beet (Unverified Allergy, Severe, HIVES, 09/01/17) latex (Unverified Allergy, Severe, Hives and rash, 09/01/17) peas (Unverified Allergy, Severe, HIVES, 09/01/17) Uncoded Allergies: FRESH TOMATO (Allergy, Severe, 12/04/16) HIVES CAN HAVE KETCHUP Past Medical History Hypertension Diabetes mellitus End-stage renal disease status post transplant in April 2009 Congestive heart failure TIA Past Surgical History Kidney transplant, right AV fistula PermCath placement ACL surgery on the left Reported Medications Reported Meds & Active Scripts Active Lantus Solostar Pen Inj (Insulin Glargine) 300 Unit/3 Ml Pen 20 Units SQ DAILY Zofran (Ondansetron HCl) 4 Mg Tab 4 Mg PO Q12HR PRN Protonix (Pantoprazole Sodium) 20 Mg Tab 20 Mg PO DAILY PRN Metoprolol Succinate ER 24 HR (Metoprolol Succinate) 100 Mg Tab 100 Mg PO DAILY Levothyroxine (Levothyroxine Sodium) 25 Mcg Tab 25 Mcg PO DAILY Amlodipine (Amlodipine Besylate) 10 Mg Tab 10 Mg PO DAILY Tacrolimus 5 Mg Cap 5 Mg PO Q12H Reported Hydralazine HCl 25 Mg Tablet 25 Mg PO TID Take with meals Lipitor (Atorvastatin Calcium) 80 Mg Tab 80 Mg PO EVERY OTHER DAY D 400 (Cholecalciferol) 400 Unit Tab 400 Units PO DAILY Prednisone 10 Mg Tab 10 Mg PO DAILY Humalog Kwikpen Pen Inj (Insulin Lispro (Human) Inj) 300 Unit/3 Ml Pen 0 SQ ACHS PER SLIDING SCALE Fluticasone Nasal [place] 50 Mcg/Act Naspr 1 [place] EACH NARE BID PRN 50 mcg/spray Magnesium Gluconate 500 Mg Tab 500 Mg PO DAILY Sodium Bicarbonate 650 Mg Tab 1,300 Mg PO DAILY Mycophenolate (Mycophenolate Mofetil) 500 Mg Tab 500 Mg PO BID Nephrocaps (B-Complex W/ C & Folic Acid) 1 Cap 1 Cap PO DAILY If on dialysis, take after treatment. Active Ordered Medications Current Medications Medications (Trade) Dose Ordered Sig/Yasmany Route Start Time Stop Time Status Last Admin (NS Flush) 2 ml UNSCH PRN IV FLUSH 12/05/17 15:15 (NS Flush) 2 ml BID IV FLUSH 12/05/17 21:00 (Zithromax) 500 mg DAILY PO 12/06/17 09:00 Metronidazole 100 ml @ 100 mls/hr Q8H IV 12/05/17 17:00 (Tylenol) 650 mg Q4H PRN PO 12/05/17 15:15 (Zofran Inj) 4 mg Q6H PRN IV PUSH 12/05/17 15:15 (Duoneb Neb) 1 ampule Q6HR NEB INH 12/05/17 16:00 (Duoneb Neb) 1 ampule Q4HR NEB PRN INH 12/05/17 15:15 (Robitussin Dm 200-20 Mg/10 ml Liq) 10 ml Q4H PRN PO 12/05/17 15:15 (Heparin Inj) 5,000 units Q8HR SQ 12/05/17 15:15 (D50w (Vial) Inj) 50 ml UNSCH PRN IV PUSH 12/05/17 15:15 (Glucagon Inj) 1 mg UNSCH PRN OTHER 12/05/17 15:15 (NovoLOG SUPPLEMENTAL SCALE) 1 ACHS SLIDING SCALE SQ 12/05/17 17:00 (Norvasc) 10 mg DAILY PO 12/06/17 09:00 (Lipitor) 80 mg EVERY OTHER DAY PO 12/07/17 09:00 (Vitamin D3) 400 units DAILY PO 12/06/17 09:00 (Flonase Sergio Spr) 1 spray BID PRN EACH NARE 12/05/17 15:30 (Apresoline) 25 mg TID PO 12/05/17 18:00 (Synthroid) 25 mcg DAILY PO 12/06/17 09:00 (Cellcept) 500 mg BID PO 12/05/17 21:00 (Protonix) 20 mg DAILY PRN PO 12/05/17 15:30 (Deltasone) 10 mg DAILY PO 12/06/17 09:00 (Sodium Bicarbonate) 1,300 mg DAILY PO 12/06/17 09:00 (Prograf) 5 mg Q12H PO 12/05/17 15:30 (Levemir Inj) 20 units DAILY SQ 12/06/17 09:00 (Mag-Ox) 500 mg DAILY PO 12/06/17 09:00 (Toprol Xl) 100 mg DAILY PO 12/06/17 09:00 (Zofran Odt) 4 mg Q12HR PRN PO 12/05/17 15:30 Family History Dad from [place] Mother from staph infection Social History He tried smoking at age 15 with quit denies alcohol intake Use cocaine in the past with stop many years ago Physical Exam Vital Signs Vital Signs Date Time Temp Pulse Resp B/P (MAP) Pulse Ox O2 Delivery O2 Flow Rate FiO2 12/05/17 16:15 94 19 159/86 (110) 97 Nasal Cannula 2.00 12/05/17 13:43 104 22 152/78 (102) 95 Nasal Cannula 2.00 12/05/17 12:15 95 Room Air 12/05/17 11:30 98.9 99 22 160/83 (108) 92 Physical Exam GENERAL: Well-nourished, well-developed patient. SKIN: Warm and dry. HEAD: Normocephalic. EYES: No scleral icterus. No injection or drainage. NECK: Supple, trachea midline. No JVD or lymphadenopathy. CARDIOVASCULAR: Tachycardia RESPIRATORY: Breath sounds diminished air entry at bases. GASTROINTESTINAL: Abdomen soft, non-tender, nondistended. EXTREMITIES: No cyanosis, 2+ edema. NEUROLOGICAL: Awake, alert, and oriented x 3. Non-focal. Laboratory Laboratory Tests Test 12/05/17 12:15 White Blood Count 20.1 Red Blood Count 4.09 Hemoglobin 9.8 Hematocrit 30.9 Mean Corpuscular Volume 75.6 Mean Corpuscular Hemoglobin 24.0 Mean Corpuscular Hemoglobin Concent 31.8 Red Cell Distribution Width 17.2 Platelet Count 251 Mean Platelet Volume 9.1 Neutrophils (%) (Auto) 89.1 Lymphocytes (%) (Auto) 3.6 Monocytes (%) (Auto) 6.2 Eosinophils (%) (Auto) 0.1 Basophils (%) (Auto) 1.0 Neutrophils # (Auto) 17.9 Lymphocytes # (Auto) 0.7 Monocytes # (Auto) 1.2 Eosinophils # (Auto) 0.0 Basophils # (Auto) 0.2 CBC Comment AUTO DIFF Differential Total Cells Counted 100 Neutrophils % (Manual) 88 Band Neutrophils % 4 Lymphocytes % 1 Monocytes % 6 Neutrophils # (Manual) 18.7 Myelocytes 1 Differential Comment FINAL DIFF MANUAL Platelet Estimate NORMAL Platelet Morphology Comment NORMAL Ovalocytes 1+ Acanthocytes OCC Keratocytes OCC Prothrombin Time 10.5 Prothromb Time International Ratio 1.0 Activated Partial Thromboplast Time 25.4 Urine Color LIGHT-YELLOW Urine Turbidity CLEAR Urine pH 6.0 Urine Specific [place] 1.011 Urine Protein 300 Urine Glucose (UA) 70 Urine Ketones NEG Urine Occult Blood NEG Urine Nitrite NEG Urine Bilirubin NEG Urine Urobilinogen LESS THAN 2.0 Urine Leukocyte Esterase NEG Urine RBC 2 Urine WBC 1 Urine Squamous Epithelial Cells <1 Microscopic Urinalysis Comment CULT NOT INDICATED Blood Urea Nitrogen 91 Creatinine 4.83 Random Glucose 198 Total Protein 6.8 Albumin 2.7 Calcium Level 8.8 Magnesium Level 2.0 Alkaline Phosphatase 70 Aspartate Amino Transf (AST/SGOT) 27 Alanine Aminotransferase (ALT/SGPT) 18 Total Bilirubin 0.4 Sodium Level 141 Potassium Level 5.0 Chloride Level 114 Carbon Dioxide Level 13.9 Anion Gap 13 Estimat Glomerular Filtration Rate 15 Lactic Acid Level 1.0 Total Creatine Kinase 358 Creatine Kinase MB 3.9 Creatine Kinase MB % 1.1 Troponin I 0.07 B-Type Natriuretic Peptide 460 Date/Time Source Procedure Growth Status 12/05/17 12:13 Blood Peripheral Aerobic Blood Culture Pending Received 12/05/17 12:13 Blood Peripheral Anaerobic Blood Culture Pending Received 12/05/17 12:15 Nasal Washing Influenza Types A,B Antigen (PARAMJIT) - Final NEGATIVE FOR FLU A AND B ANTIGEN.... Complete Result Diagram: 12/05/17 1215 12/05/17 1215 Imaging Last Impressions Chest X-Ray 12/05/17 1148 Signed Impressions: CONCLUSION: Bilateral pulmonary infiltrates are noted. Assessment and Plan Problem List: (1) ESRD (end stage renal disease) ICD Codes: N18.6 - End stage renal disease Status: Acute Plan: Patient kidney transplant has failed and he has underlying chronic changes We will reinitiate hemodialysis upon this admission you need a central line Continue with Lasix (2) Acidosis, metabolic ICD Codes: E87.2 - Acidosis Plan: Due to kidney failure (3) Renal transplant recipient ICD Codes: Z94.0 - Kidney transplant status Status: Chronic Plan: Patient was maintained on Prograf, CellCept and prednisone (4) Hypertension ICD Codes: I10 - Essential (primary) hypertension Status: Acute Plan: Continue to monitor (5) PNA (pneumonia) ICD Codes: J18.9 - Pneumonia Status: Acute Plan: Started on Zithromax and ceftriaxone (6) DM (diabetes mellitus) ICD Codes: E11.9 - Type 2 diabetes mellitus without complications Status: Acute Plan: Monitor blood glucose Problem Qualifiers (1) PNA (pneumonia): Qualified Codes: J18.1 - Lobar pneumonia, unspecified organism Chito Pereira MD Dec 05, 2017 16:30
[2017-12-05] MEDS: RESP: ALBUTEROL 2.5 MG/IPRATROPIUM 0.5 MG NEB (SCH) INH ×2 (16:34→21:17)
[2017-12-05] MEDS: metroNIDAZOLE 500 MG INJ 100 ML IV SCH ×2 (18:21→23:34)
[2017-12-05] MEDS: INSULIN ASPART SUPPLEMENTAL SCALE SQ SCH ×2 (18:49→21:00)
[2017-12-05] MEDS: hydrALAZINE HCL 25 MG TAB PO SCH (18:50)
[2017-12-05] MEDS: MYCOPHENOLATE MOFETIL 500 MG TAB PO SCH (23:32)
[2017-12-05] MEDS: ACETAMINOPHEN 325 MG TAB PO PRN (23:32)
[2017-12-05] MEDS: TACROLIMUS 5 MG CAP PO SCH (23:32)
[2017-12-05] MEDS: SODIUM CHLORIDE 0.9% FLUSH 10 ML FLUSH IV FLUSH SCH (23:35)
[2017-12-06] VITALS (22 sets, daily range): BP systolic 145–176; BP diastolic 77–93; PULSE 73–112; RESP 16–18; TEMP 98–98.5; O2SAT 95–100
[2017-12-06] MEDS ORDERED: SODIUM CHLOR 0.9% 1000 ML INJ 1,000 ML IV PRN (00:08)
[2017-12-06] MEDS ORDERED: SODIUM CHLOR 0.9% 1000 ML INJ 1,000 ML OTHER PRN ×2 (00:08)
[2017-12-06] MEDS ORDERED: HEPARIN SODIUM - IV 10,000 UNITS/10 ML VIAL IV FLUSH PRN (00:15)
[2017-12-06] MEDS ORDERED: cloNIDine HCL 0.1 MG TAB PO PRN (00:15)
[2017-12-06] MEDS ORDERED: ALBUMIN 25% INJ 100 ML IV PRN (00:15)
[2017-12-06] MEDS ORDERED: NITROGLYCERIN 0.4 MG SL 25 TABS/BTL SL PRN (00:15)
[2017-12-06] MEDS ORDERED: MANNITOL 12.5 GM/50 ML VIAL IV PRN (00:15)
[2017-12-06] MEDS ORDERED: diphenhydrAMINE HCL 25 MG CAP PO PRN (00:15)
[2017-12-06] MEDS ORDERED: SODIUM CHLORIDE 0.9% FLUSH 10 ML FLUSH IV FLUSH PRN ×2 (00:15→14:45)
[2017-12-06] MEDS ORDERED: GELATIN 12 MM/7 MM FOAM TOP PRN (00:15)
[2017-12-06] MEDS ORDERED: ONDANSETRON ODT 4 MG TAB PO PRN (00:15)
[2017-12-06 01:41] LABS: IRON (FE) 13 MCG/DL (65-175)
[2017-12-06 01:46] LABS: % SATURATION IRON PROFILE 8.9 % (20-50); TOTAL IRON BINDING CAPACITY 146 MCG/DL (250-450); TROPONIN I 0.12 NG/ML (0.02-0.05)
[2017-12-06] MEDS: HEPARIN SODIUM - SQ 10,000 UNITS/ML VIAL SQ SCH ×3 (02:08→21:37)
[2017-12-06] MEDS: RESP: ALBUTEROL 2.5 MG/IPRATROPIUM 0.5 MG NEB (SCH) INH ×4 (03:27→22:17)
[2017-12-06] MEDS ORDERED: METOPROLOL SUCCINATE 50 MG EXTENDED RELEASE TAB PO SCH (09:00)
[2017-12-06] MEDS: hydrALAZINE HCL 25 MG TAB PO SCH ×3 (09:12→21:58)
[2017-12-06] MEDS: predniSONE 10 MG TAB PO SCH (09:13)
[2017-12-06] MEDS: AZITHROMYCIN 250 MG TAB PO SCH (09:13)
[2017-12-06] MEDS: MYCOPHENOLATE MOFETIL 500 MG TAB PO SCH ×2 (09:13→21:58)
[2017-12-06] MEDS: CHOLECALCIFEROL (VIT D3) 400 UNIT TAB PO SCH (09:13)
[2017-12-06] MEDS: TACROLIMUS 5 MG CAP PO SCH ×2 (09:13→21:57)
[2017-12-06] MEDS: SODIUM CHLORIDE 0.9% FLUSH 10 ML FLUSH IV FLUSH SCH ×2 (09:14→22:01)
[2017-12-06] MEDS: metroNIDAZOLE 500 MG INJ 100 ML IV SCH ×3 (09:14→23:51)
[2017-12-06] MEDS: INSULIN ASPART SUPPLEMENTAL SCALE SQ SCH ×4 (09:17→22:08)
[2017-12-06 09:21] LABS: AUTOMATED NEUTROPHIL # 10.5 TH/MM3 (1.8-7.7); BASOPHIL # 0.1 TH/MM3 (0-0.2); BASOPHIL % 1.1 % (0.0-2.0); EOSINOPHIL % 0.1 % (0.0-4.0); HEMATOCRIT 25.2 % (39.0-51.0); LYMPHOCYTE # 1.1 TH/MM3 (1.0-4.8); MEAN CELL VOLUME 74.7 FL (80.0-100.0); MEAN CORPUSCULAR HEMOGLOBIN 23.8 PG (27.0-34.0); MEAN CORPUSCULAR HGB CONC 31.8 % (32.0-36.0); MEAN PLATELET VOLUME 8.5 FL (7.0-11.0); MONO % 6.6 % (0.0-8.0); MONOCYTE # 0.8 TH/MM3 (0-0.9); NEUT % 83.2 % (16.0-70.0); PLATELET COUNT 168 TH/MM3 (150-450); RED BLOOD COUNT 3.37 MIL/MM3 (4.50-5.90); RED CELL DISTRIBUTION WIDTH 17.1 % (11.6-17.2); WHITE BLOOD COUNT 12.6 TH/MM3 (4.0-11.0)
[2017-12-06] MEDS: INSULIN DETEMIR 100 UNITS/ML VIAL SQ SCH (09:40)
[2017-12-06] MEDS: LEVOTHYROXINE SODIUM 25 MCG TAB PO SCH (09:40)
[2017-12-06 10:13] LABS: BICARBONATE 12.7 MEQ/L (21.0-32.0); CALCIUM 8.4 MG/DL (8.5-10.1); CREATININE 4.81 MG/DL (0.60-1.30); PHOSPHORUS 4.7 MG/DL (2.5-4.9)
[2017-12-06 10:49] LABS: ACANTHOCYTES OCC (NORMAL); BANDS 16 % (0-6); BURR CELLS 1+ (NORMAL); KERATOCYTES OCC (NORMAL); LYMPHOCYTES 4 % (9-44); MONOCYTES 4 % (0-8); NEUTROPHIL # MANUAL DIFF 11.6 TH/MM3 (1.8-7.7); OVALOCYTES 1+ (NORMAL); POLYS (SEG NEUTROPHILS) 76 % (16-70)
--- NOTE | 2017-12-06 10:49 | HHI.PR ---
Subjective Remarks Mr. Gabriel is a 57-year-old male admitted secondary to bilateral pneumonia with sepsis. Concern was present due to an elevated troponin. Patient has chronic kidney disease and a history of renal transplant. His baseline creatinine is approximately 3.5. He was admitted with a creatinine level of 4.8. This may be related to pneumonia. His troponin elevation is also likely related to pneumonia and has remained relatively flat since time of admit. No evidence of chest pain or cardiac symptoms. No new complaints today. He says he is feeling slightly better in regards to his malaise. Objective Vital Signs Date Time Temp Pulse Resp B/P (MAP) Pulse Ox O2 Delivery O2 Flow Rate FiO2 12/06/17 09:36 99 Nasal Cannula 1.50 12/06/17 07:59 98.0 82 18 164/84 (110) 99 12/06/17 06:39 76 12/06/17 05:00 82 12/06/17 04:00 80 12/06/17 04:00 75 12/06/17 03:00 76 12/06/17 02:08 18 12/06/17 02:00 76 12/06/17 01:00 80 12/06/17 00:00 87 12/06/17 00:00 94 18 145/77 (99) 95 12/06/17 00:00 86 12/05/17 23:00 92 12/05/17 22:06 94 Nasal Cannula 1.00 12/05/17 22:00 92 12/05/17 21:00 90 12/05/17 20:20 98.7 89 18 101/62 (75) 94 12/05/17 20:00 102 12/05/17 20:00 94 12/05/17 19:26 12/05/17 19:06 105 20 96 Room Air 12/05/17 19:05 110 20 156/74 (101) 96 Nasal Cannula 12/05/17 18:52 97 19 172/94 (120) 97 Nasal Cannula 12/05/17 16:37 95 Nasal Cannula 3.00 12/05/17 16:15 94 19 159/86 (110) 97 Nasal Cannula 2.00 12/05/17 13:43 104 22 152/78 (102) 95 Nasal Cannula 2.00 12/05/17 12:15 95 Room Air 12/05/17 11:30 98.9 99 22 160/83 (108) 92 I/O 12/05/17 12/05/17 12/05/17 12/06/17 12/06/17 12/06/17 07:00 15:00 23:00 07:00 15:00 23:00 Intake Total 1000 ml 1350 ml 480 ml Output Total 625 ml Balance 1000 ml 1350 ml -145 ml Intake Oral 480 ml IV Total 1000 ml 1350 ml Output Urine Total 625 ml Result Diagram: 12/06/17 0851 12/06/17 0851 Objective Remarks GENERAL: NAD, A&Ox3 HEAD: Normocephalic. NECK: Supple, trachea midline. No lymphadenopathy. EYES: No scleral icterus. No injection or drainage. CARDIOVASCULAR: Regular rate and rhythm without murmurs, gallops, or rubs. RESPIRATORY: Breath sounds equal bilaterally. No accessory muscle use. GASTROINTESTINAL: Abdomen soft, non-tender, nondistended. MUSCULOSKELETAL: No cyanosis, or edema. SKIN: Warm and dry. NEURO: No focal neurological deficitis. A/P Problem List: (1) Renal transplant recipient ICD Code: Z94.0 - Kidney transplant status Status: Chronic (2) Pneumonia ICD Code: J18.9 - Pneumonia, unspecified organism Status: Acute Permanent Comment: 12/11: Given 23 polyvalent pneumonia vaccine 12/12:13 valent pneumonia vaccine is due Last Edited By: Kiera Cesar on Jan 29, 2016 08:39 (3) MEJIA (acute kidney injury) ICD Code: N17.9 - Acute kidney failure, unspecified Status: Acute (4) Sepsis ICD Code: A41.9 - Sepsis, unspecified organism Status: Acute (5) ESRD (end stage renal disease) ICD Code: N18.6 - End stage renal disease Status: Acute (6) Diabetes mellitus ICD Code: E11.9 - Type 2 diabetes mellitus without complications Status: Chronic Assessment and Plan 57-year-old male with history of diabetes mellitus, kidney transplant on immunosuppressants presenting with shortness of breath Sepsis Improving Follow vital signs Community Acquired Pneumonia Immunocompromise Patient feels improved, but not to baseline Follow clinically Continue Antibiotics Continue oxygen as needed Azithromycin Rocephin Flagyl Elevated Troponin This is not trending upward Appears to be a combination of inflammation from pneumonia and degree of renal disease (MEJIA). No further need for cardiac work up Transfer to [facility] Diabetes mellitus type 2 Follow blood sugars Insulin sliding scale Diabetic diet Diarrhea Improving Continue Flagyl C. Diff screen pending Hypertension Continue baseline treatment Follow blood pressures Adjust treatments as needed metoprolol and Norvasc End-stage renal disease status post kidney transplant-restart tacrolimus Continue prednisone, mycophenolate. Continue renal medications Nephrology following Anemia Follow CBC DVT prophylaxis Heparin Problem Qualifiers (1) Sepsis: Qualified Codes: A41.9 - Sepsis, unspecified organism Kam Bolden MD Dec 06, 2017 10:49
[2017-12-06] MEDS: MAGNESIUM OXIDE 400 MG TAB PO SCH (12:21)
--- NOTE | 2017-12-06 13:03 | HHI.NPPN ---
Subjective History of Present Illness 57-year-old -Uz[place] male with history of failing kidney transplant, he developed fever and shortness of breath and has facial swelling Review of Systems General Constitutional: Fatigue Respiratory Lungs: SOB Objective Data Data Vital Signs Date Time Temp Pulse Resp B/P (MAP) Pulse Ox O2 Delivery O2 Flow Rate FiO2 12/06/17 11:20 98.2 95 18 176/86 (116) 96 12/06/17 09:36 99 Nasal Cannula 1.50 12/06/17 07:59 98.0 82 18 164/84 (110) 99 12/06/17 06:39 76 12/06/17 05:00 82 12/06/17 04:00 80 12/06/17 04:00 75 12/06/17 03:00 76 12/06/17 02:08 18 12/06/17 02:00 76 12/06/17 01:00 80 12/06/17 00:00 87 12/06/17 00:00 94 18 145/77 (99) 95 12/06/17 00:00 86 12/05/17 23:00 92 12/05/17 22:06 94 Nasal Cannula 1.00 12/05/17 22:00 92 12/05/17 21:00 90 12/05/17 20:20 98.7 89 18 101/62 (75) 94 12/05/17 20:00 102 12/05/17 20:00 94 12/05/17 19:26 12/05/17 19:06 105 20 96 Room Air 12/05/17 19:05 110 20 156/74 (101) 96 Nasal Cannula 12/05/17 18:52 97 19 172/94 (120) 97 Nasal Cannula 12/05/17 16:37 95 Nasal Cannula 3.00 12/05/17 16:15 94 19 159/86 (110) 97 Nasal Cannula 2.00 12/05/17 13:43 104 22 152/78 (102) 95 Nasal Cannula 2.00 -: 12/06/17 0851 12/06/17 0851 Microbiology 12/05/17 - Final, Complete 12/05/17 Legionella Antigen - Preliminary, Resulted 12/05/17 Streptococcus pneumoniae Antigen (M - Final, Resulted PRESUMPTIVE NEGATIVE FOR STREPTOCOCCU... Physical Exam General Appearance: Well Developed, Well Nourished Neck Neck Exam: Neck Supple Pulmonary Resp Exam: Clear Bilaterally, Breath Sounds Equal Cardiology CV Exam: Regular, Normal Sinus Rhythm Gastrointestinal/Abdomen GI Exam: Soft, Non-Tender, Bowel Sounds Present Extremeties Extremities Exam: No Edema Neurologic Neuro Exam: Alert Assessment/Plan Problem List: (1) ESRD (end stage renal disease) ICD Codes: N18.6 - End stage renal disease Status: Acute Plan: Patient kidney transplant has failed and he has underlying chronic changes We will reinitiate hemodialysis upon this admission need a central line Patient is agreeable and will proceed with dialysis and again I explained to him that kidney functions are poor He agreed to it and will proceed Consult Dr. Sauceda for AV fistula placement (2) Acidosis, metabolic ICD Codes: E87.2 - Acidosis Plan: Due to kidney failure (3) Renal transplant recipient ICD Codes: Z94.0 - Kidney transplant status Status: Chronic Plan: Patient was maintained on Prograf, CellCept and prednisone (4) Hypertension ICD Codes: I10 - Essential (primary) hypertension Status: Acute Plan: Continue to monitor (5) PNA (pneumonia) ICD Codes: J18.9 - Pneumonia Status: Acute Plan: Started on Zithromax and ceftriaxone (6) DM (diabetes mellitus) ICD Codes: E11.9 - Type 2 diabetes mellitus without complications Status: Acute Plan: Monitor blood glucose Problem Qualifiers (1) PNA (pneumonia): Qualified Codes: J18.1 - Lobar pneumonia, unspecified organism Chito Pereira MD Dec 06, 2017 13:03
[2017-12-06] MEDS: SODIUM BICARBONATE 650 MG TAB PO SCH (13:05)
[2017-12-06] MEDS ORDERED: LORazepam 2 MG/ML VIAL ONE (13:39)
--- NOTE | 2017-12-06 14:35 | PD.RAD ---
Post Procedure Progress Note Pre Procedure Diagnosis: (1) AV fistula occlusion (2) ESRD (end stage renal disease) Post Procedure Diagnosis: (1) AV fistula occlusion (2) ESRD (end stage renal disease) Procedure Date: Dec 06, 2017 Supervising Radiologist: Jad Romero JR Proceduralist/Assist: Charu Wolfe, RT(R), Odilon Olsen, RT(R) Anesthesia: Local Plan of Activity Patient to Unit: Nursing Unit Patient Condition: Good See PACS Report for procedural detail/treatment Central Venous Access Device Procedure 1 Right Internal Jugular Hemodialysis Catheter Non-Tunneled Placement dual lumen [place]: 14 Findings: Vascath in good position and functions well. OK to use. Jr. Nick,Jad Daigle MD Dec 06, 2017 14:35
[2017-12-06] MEDS ORDERED: HEPARIN SODIUM - IV 2,000 UNITS/2 ML VIAL IV FLUSH PRN (14:45)
--- NOTE | 2017-12-06 15:03 | EKG ---
Date Performed: 12/05/2017 Time Performed: 12:14:09 PTAGE: 57 years EKG: SINUS TACHYCARDIA LEFT VENTRICULAR HYPERTROPHY AND ST-T CHANGE ABNORMAL ECG PREVIOUS TRACING : 09/01/2017 12.06 Since the previous tracing, no significant change noted DOCTOR: Tanner Matos Interpretating Date/Time 12/06/2017 15:01:05
--- NOTE | 2017-12-06 15:03 | EKG ---
Date Performed: 12/05/2017 Time Performed: 23:23:58 PTAGE: 57 years EKG: Sinus arrhythmia Lateral ST-T changes may be due to myocardial ischemia Abnormal ECG PREVIOUS TRACING 12/05/17 LVH with strain. Consider anterolateral ischemia. DOCTOR: Tanner Matos Interpretating Date/Time 12/06/2017 15:01:39
--- NOTE | 2017-12-06 15:03 | EKG ---
Date Performed: 12/05/2017 Time Performed: 17:56:35 PTAGE: 57 years EKG: Sinus rhythm WITH MARKED SINUS ARRHYTHMIA ST DEVIATION AND MODERATE T-WAVE ABNORMALITY, CONSIDER LATERAL ISCHEMIA ABNORMAL ECG PREVIOUS TRACING : 12/05/2017 12.14 Since the previous tracing, no significant change noted DOCTOR: Tanner Matos Interpretating Date/Time 12/06/2017 15:01:19
[2017-12-06] MEDS: ACETAMINOPHEN 325 MG TAB PO PRN ×3 (15:11→23:49)
[2017-12-06] MEDS: GENTAMICIN SULFATE 20 MG/2 ML VIAL OTHER PRN (15:12)
[2017-12-06] MEDS: EPOETIN ALFA 10,000 UNITS/ML VIAL IV PUSH PRN (15:12)
[2017-12-06] MEDS: HEPARIN SODIUM - IV 10,000 UNITS/10 ML VIAL PRN (15:12)
--- NOTE | 2017-12-06 15:43 | RADRPT ---
EXAM DATE: 12/06/2017 3:09 PM EDT AGE/SEX: 57 years / Male INDICATIONS: Patient with a history of renal failure. CLINICAL DATA: This is the patient's initial encounter. Patient reports that signs and symptoms have been present for 2 days and indicates a pain score of 5/10. MEDICAL/SURGICAL HISTORY: Diabetes. Hypertension. Chronic renal failure. CHF TIA . Right ki dney transplant Fistula Perm cath placement ACL surgery on the left COMPARISON: No prior exams available for comparison. FLUORO TIME (min): 0.1 IMAGE SERIES: 1 ACCESS SITE: Right internal jugular vein DEVICE(S): 14 [place] double lumen Vas Cath . . PROCEDURE : 1. Ultrasound guided venipuncture. 2. Fluoroscopic guidance. 3. Central line placement. The risks, benefits and alternatives to the procedure were explained and verbal and written consent w as obtained. The site was prepped in sterile fashion. Full sterile technique was used, including ca p, mask, sterile gloves and gown and a large sterile sheet. Hand hygiene and 2% chlorhexidine prep w as utilized per protocol for cutaneous antisepsis with appropriate dry time for site. Sterile gel an d sterile probe cover were utilized for ultrasound guidance. The skin and subcutaneous tissues were infiltrated with local anesthetic solution. A suitable site a leandra the vein was selected with ultrasound and fluoroscopic guidance. A small incision was made. Th e vein was accessed under direct ultrasound visualization using the micropuncture technique. The alanis ropuncture set was exchanged for a 0.035 wire. The tract was dilated. The catheter was advanced int o position under direct fluoroscopic visualization, and was advanced with the tip at the junction of the superior vena cava and rt atrium. The catheter was fixed in place with suture and a sterile dres sing was applied. The patient tolerated the procedure well and there were no complications. CONCLUSION: 1. Uncomplicated line placement as above. Electronically signed by: Jad Romero MD 12/06/2017 3:42 PM EDT
[2017-12-06] MEDS: guaiFENesin/DEXTROMETHORPHAN 200 MG/20 MG/10 ML CUP PO PRN (23:50)
[2017-12-07] VITALS (29 sets, daily range): BP systolic 144–167; BP diastolic 79–99; PULSE 70–92; RESP 16–18; TEMP 97–99.2; O2SAT 91–98
[2017-12-07] MEDS: HEPARIN SODIUM - SQ 10,000 UNITS/ML VIAL SQ SCH ×3 (03:28→21:41)
[2017-12-07] MEDS: RESP: ALBUTEROL 2.5 MG/IPRATROPIUM 0.5 MG NEB (SCH) INH ×4 (03:40→20:56)
[2017-12-07] MEDS: guaiFENesin/DEXTROMETHORPHAN 200 MG/20 MG/10 ML CUP PO PRN (03:51)
[2017-12-07] MEDS: ACETAMINOPHEN 325 MG TAB PO PRN ×4 (03:53→21:52)
[2017-12-07 06:43] LABS: AUTOMATED NEUTROPHIL # 9.7 TH/MM3 (1.8-7.7); BASOPHIL # 0.1 TH/MM3 (0-0.2); BASOPHIL % 1.2 % (0.0-2.0); EOSINOPHIL # 0.1 TH/MM3 (0-0.4); EOSINOPHIL % 0.7 % (0.0-4.0); HEMATOCRIT 25.9 % (39.0-51.0); HEMOGLOBIN 8.4 GM/DL (13.0-17.0); LYMPH % 11.2 % (9.0-44.0); LYMPHOCYTE # 1.4 TH/MM3 (1.0-4.8); MEAN CORPUSCULAR HGB CONC 32.4 % (32.0-36.0); MEAN PLATELET VOLUME 8.8 FL (7.0-11.0); MONO % 8.1 % (0.0-8.0); NEUT % 78.8 % (16.0-70.0); PLATELET COUNT 180 TH/MM3 (150-450); RED CELL DISTRIBUTION WIDTH 16.6 % (11.6-17.2); WHITE BLOOD COUNT 12.4 TH/MM3 (4.0-11.0)
[2017-12-07 06:58] LABS: ALBUMIN 2.3 GM/DL (3.4-5.0); ALKALINE PHOSPHATASE 56 U/L (45-117); ALT (GPT) 15 U/L (12-78); AST (GOT) 17 U/L (15-37); BICARBONATE 22.1 MEQ/L (21.0-32.0); BLOOD UREA NITROGEN 56 MG/DL (7-18); CALCIUM 8.2 MG/DL (8.5-10.1); CHLORIDE 109 MEQ/L (98-107); CREATININE 3.68 MG/DL (0.60-1.30); GLOMERULAR FILTRATION RATE 21 ML/MIN (>89); GLUCOSE,RANDOM 94 MG/DL (74-106); SODIUM (NA) 142 MEQ/L (136-145); TOTAL BILIRUBIN ADULT 0.4 MG/DL (0.2-1.0); TOTAL PROTEIN 5.8 GM/DL (6.4-8.2)
[2017-12-07] MEDS: INSULIN ASPART SUPPLEMENTAL SCALE SQ SCH ×3 (08:00→21:43)
[2017-12-07] MEDS: AZITHROMYCIN 250 MG TAB PO SCH (08:51)
[2017-12-07] MEDS: TACROLIMUS 5 MG CAP PO SCH ×2 (08:52→21:51)
[2017-12-07] MEDS: ATORVASTATIN 80 MG TAB PO SCH (08:52)
[2017-12-07] MEDS: LEVOTHYROXINE SODIUM 25 MCG TAB PO SCH (08:53)
[2017-12-07] MEDS: CHOLECALCIFEROL (VIT D3) 400 UNIT TAB PO SCH (08:53)
[2017-12-07] MEDS: predniSONE 10 MG TAB PO SCH (08:55)
[2017-12-07] MEDS: MAGNESIUM OXIDE 400 MG TAB PO SCH (08:55)
[2017-12-07] MEDS: MYCOPHENOLATE MOFETIL 500 MG TAB PO SCH ×2 (08:56→21:51)
[2017-12-07] MEDS: hydrALAZINE HCL 25 MG TAB PO SCH ×3 (08:57→21:51)
[2017-12-07] MEDS: SODIUM BICARBONATE 650 MG TAB PO SCH (08:57)
[2017-12-07] MEDS: metroNIDAZOLE 500 MG INJ 100 ML IV SCH ×2 (08:58→21:40)
[2017-12-07] MEDS: SODIUM CHLORIDE 0.9% FLUSH 10 ML FLUSH IV FLUSH SCH ×2 (08:58→21:52)
[2017-12-07] MEDS: INSULIN DETEMIR 100 UNITS/ML VIAL SQ SCH (08:59)
--- NOTE | 2017-12-07 09:03 | PD.VS.CON ---
History of Present Illness Chief Complaint: AVF Eval Consult Requested by: Dr. Pereira History of Present Illness 57/M with a PMH of diabetes mellitus, hypertension, congestive heart failure, pneumonia and end-stage renal disease status post transplant in April 2009 Pt presented to the emergency department c/o sudden onset cough,congestion, diarrhea, fever and shortness of breath. Pt reported he recently started HD again and is in need of HD access Pt has a Hx of L UE AVF that was placed in 2005 and was functioning until 2008. In November 2016 pt's L UE AVF thrombosed and was excised Pt is right handed UE warm w/ motor intact Palpable distal pulses present (Corinne Meadows) Past/Family/Social History Past Medical History Hypertension Diabetes mellitus End-stage renal disease status post transplant in April 2009 Congestive heart failure TIA Past Surgical History Kidney transplant, right L UE AV fistula ACL surgery- L Social History Denied smoking Denied ETOH Denied Illicit drug use (Corinne Meadows) Home Medications Active Scripts Insulin Glargine Inj (Lantus Solostar Pen Inj) 300 Unit/3 Ml Pen, 20 UNITS SQ DAILY for Blood Sugar Management, #15 PEN 0 Refills Prov:Janett Hahn MD 06/29/17 Ondansetron (Zofran) 4 Mg Tab, 4 MG PO Q12HR Y for NAUSEA OR VOMITING, #30 TAB 0 Refills Prov:Janett Hahn MD 06/29/17 Pantoprazole (Protonix) 20 Mg Tab, 20 MG PO DAILY Y for REFLUX, #30 TAB 3 Refills Prov:Kiera Cesar MD 02/19/17 Metoprolol Succinate ER 24 HR (Metoprolol Succinate ER 24 HR) 100 Mg Tab, 100 MG PO DAILY, #30 TAB 3 Refills Prov:Kiera Cesar MD 02/19/17 Levothyroxine (Levothyroxine) 25 Mcg Tab, 25 MCG PO DAILY for Thyroid, #30 TAB 3 Refills Prov:Kiera Cesar MD 02/19/17 Amlodipine (Amlodipine) 10 Mg Tab, 10 MG PO DAILY for Blood Pressure Management , #31 TAB 3 Refills Prov:Kiera Cesar MD 02/19/17 Tacrolimus (Tacrolimus) 5 Mg Cap, 5 MG PO Q12H for Prevent Transplant Reject, # 60 CAP 0 Refills Prov:Chito Pereira MD 12/11/16 Reported Medications Hydralazine HCl (Hydralazine HCl) 25 Mg Tablet, 25 MG PO TID for Blood Pressure Management, #90 TAB 0 Refills Take with meals 09/01/17 Atorvastatin (Lipitor) 80 Mg Tab, 80 MG PO EVERY OTHER DAY for Cholesterol Management, #30 TAB 0 Refills 09/01/17 Cholecalciferol (D 400) 400 Unit Tab, 400 UNITS PO DAILY for Nutritional Supplement, TAB 09/01/17 Prednisone (Prednisone) 10 Mg Tab, 10 MG PO DAILY, TAB 0 Refills 09/01/17 Insulin Lispro (Human) Inj (Humalog Kwikpen Pen Inj) 300 Unit/3 Ml Pen, 0 SQ ACHS for Blood Sugar Management, PEN 0 Refills PER SLIDING SCALE 04/30/17 Fluticasone Nasal [place] (Fluticasone Nasal [place]) 50 Mcg/Act Naspr, 1 SPRAY EACH NARE BID Y for ALLERGIES, #1 BOTTLE 0 Refills 50 mcg/spray 09/23/16 Magnesium Gluconate (Magnesium Gluconate) 500 Mg Tab, 500 MG PO DAILY for Nutritional Supplement, TAB 0 Refills 05/08/16 Sodium Bicarbonate (Sodium Bicarbonate) 650 Mg Tab, 1300 MG PO DAILY, #60 TAB 0 Refills 05/08/16 Mycophenolate (Mycophenolate) 500 Mg Tab, 500 MG PO BID for Immunosuppression, # 120 TAB 0 Refills 05/08/16 B-Complex W/ C & Folic Acid (Nephrocaps) 1 Cap, 1 CAP PO DAILY for Nutritional Supplement, #30 CAP 0 Refills If on dialysis, take after treatment. 05/08/16 Coded Allergies: banana (Unverified Allergy, Severe, HIVES, 09/01/17) beet (Unverified Allergy, Severe, HIVES, 09/01/17) latex (Unverified Allergy, Severe, Hives and rash, 09/01/17) peas (Unverified Allergy, Severe, HIVES, 09/01/17) Uncoded Allergies: FRESH TOMATO (Allergy, Severe, 12/04/16) HIVES CAN HAVE KETCHUP Review of Systems Constitutional: DENIES: Fever, Chills Respiratory: COMPLAINS OF: Cough Gastrointestinal: COMPLAINS OF: Diarrhea, DENIES: Abdominal pain (Abdiel, Corinne F [employer] PROFESSIONAL) Physical Exam Vitals/I&O Date Time Temp Pulse Resp B/P (MAP) Pulse Ox O2 Delivery O2 Flow Rate FiO2 12/07/17 08:12 98.3 75 18 163/93 (116) 96 12/07/17 06:00 82 12/07/17 05:00 80 12/07/17 04:00 73 12/07/17 04:00 97.0 82 16 167/99 (121) 95 12/07/17 03:00 74 12/07/17 02:00 72 12/07/17 01:00 78 12/07/17 00:00 98.6 92 16 151/87 (108) 98 12/07/17 00:00 86 12/06/17 23:00 78 12/06/17 22:18 96 Nasal Cannula 3.00 12/06/17 22:00 74 12/06/17 21:00 76 12/06/17 20:00 77 12/06/17 20:00 98.5 87 16 154/93 (113) 100 12/06/17 19:00 84 12/06/17 18:00 98.5 83 18 158/88 (111) 99 12/06/17 12:00 112 12/06/17 11:20 98.2 95 18 176/86 (116) 96 12/06/17 11:00 92 12/06/17 10:00 84 12/06/17 09:36 99 Nasal Cannula 1.50 12/06/17 09:00 82 12/07/17 12/07/17 12/07/17 07:00 15:00 23:00 Output Total 150 ml Balance -150 ml Neuro: GCS 15 Speech clear CN 2-12 intact HEENT: CHRIS Neck: No JVD distention Heart: RRR Lungs: CTA Abdomen: S/NT Vascular: Palpable R/L Radial Extremities: UE 5/5 LE 5/5 (Corinne Meadows) Laboratory Tests Test 12/06/17 08:51 12/07/17 05:05 12/07/17 06:02 White Blood Count 12.6 12.4 Red Blood Count 3.37 3.50 Hemoglobin 8.0 8.4 Hematocrit 25.2 25.9 Mean Corpuscular Volume 74.7 74.0 Mean Corpuscular Hemoglobin 23.8 24.0 Mean Corpuscular Hemoglobin Concent 31.8 32.4 Red Cell Distribution Width 17.1 16.6 Platelet Count 168 180 Mean Platelet Volume 8.5 8.8 Neutrophils (%) (Auto) 83.2 78.8 Lymphocytes (%) (Auto) 9.0 11.2 Monocytes (%) (Auto) 6.6 8.1 Eosinophils (%) (Auto) 0.1 0.7 Basophils (%) (Auto) 1.1 1.2 Neutrophils # (Auto) 10.5 9.7 Lymphocytes # (Auto) 1.1 1.4 Monocytes # (Auto) 0.8 1.0 Eosinophils # (Auto) 0.0 0.1 Basophils # (Auto) 0.1 0.1 CBC Comment AUTO DIFF AUTO DIFF Differential Total Cells Counted 100 Neutrophils % (Manual) 76 Band Neutrophils % 16 Lymphocytes % 4 Monocytes % 4 Neutrophils # (Manual) 11.6 Differential Comment FINAL DIFF MANUAL Platelet Estimate NORMAL Platelet Morphology Comment NORMAL Ovalocytes 1+ Sho Cells 1+ Acanthocytes OCC Keratocytes OCC Blood Urea Nitrogen 92 56 Creatinine 4.81 3.68 Random Glucose 226 94 Calcium Level 8.4 8.2 Phosphorus Level 4.7 Sodium Level 142 142 Potassium Level 4.6 4.1 Chloride Level 115 109 Carbon Dioxide Level 12.7 22.1 Anion Gap 14 11 Estimat Glomerular Filtration Rate 15 21 25-Hydroxy Vitamin D Total 21.6 Parathyroid Hormone (Intact) 294.0 Hepatitis A IgM Antibody NONREACTIVE Hepatitis B Surface Antigen NONREACTIVE Hepatitis B Core IgM Antibody NONREACTIVE Hepatitis C IgG Antibody NONREACTIVE Total Protein 5.8 Albumin 2.3 Alkaline Phosphatase 56 Aspartate Amino Transf (AST/SGOT) 17 Alanine Aminotransferase (ALT/SGPT) 15 Total Bilirubin 0.4 Date/Time Source Procedure Growth Status 12/05/17 12:13 Blood Peripheral Aerobic Blood Culture - Preliminary NO GROWTH IN 1 DAY Resulted 12/05/17 12:13 Blood Peripheral Anaerobic Blood Culture - Preliminary NO GROWTH IN 1 DAY Resulted 12/07/17 06:02 Stool Stool Stool Pus (PARAMJIT) Pending Received 12/07/17 06:04 Sputum Expectorated Sputum Gram Stain Pending Received 12/07/17 06:04 Sputum Expectorated Sputum Sputum Culture Pending Received 12/05/17 18:45 Urine Clean Catch - Final Complete Last 48 hours Impressions Catheter Placement X-Ray 12/06/17 0000 Signed Impressions: CONCLUSION: 1. Uncomplicated line placement as above. Chest X-Ray 12/05/17 1148 Signed Impressions: CONCLUSION: Bilateral pulmonary infiltrates are noted. (Corinne Meadows) Assessment and Plan Assessment: (1) ESRD (end stage renal disease) Status: Acute Plan 57/M with a hx of ESRD on HD in need of access Pt right handed Hx of thrombosed L UE AVF Plan Discussed AVF creation process w/ pt Questions answered Arranged out pt follow up in 3W Pt made aware of plan Corinne Meadows TALENT ACQUISITION LEAD [facility] [phone] Discharge Planning Pt clear for D/C Arranged out pt f/u (Corinne Meadows) Plan Agree with above. Pt adm with pneumonia so will hold off elective AVF creation. Plan return to clinic with AVF evaluation. Pt agrees to plan. Alli Sauceda MD FACS RPVI nuclear fuel processing technician [facility] - Heart and Vascular Surgery at [facility] [phone] (Alli Sauceda MD) Corinne Meadows Dec 07, 2017 09:03 Alli Sauceda MD Dec 07, 2017 10:28
[2017-12-07] MEDS ORDERED: ERGOCALCIFEROL (VIT D2) 50,000 UNIT CAP PO ONE (09:30)
[2017-12-07 09:50] LABS: ACANTHOCYTES OCC (NORMAL); BURR CELLS 1+ (NORMAL); KERATOCYTES OCC (NORMAL); OVALOCYTES 1+ (NORMAL)
--- NOTE | 2017-12-07 10:58 | HHI.PR ---
Subjective Remarks Creatinine level has decreased to 3.6 today. Patient is status post dialysis. Vas-Cath is present. No complaints from the patient. Objective Vital Signs Date Time Temp Pulse Resp B/P (MAP) Pulse Ox O2 Delivery O2 Flow Rate FiO2 12/07/17 08:12 98.3 75 18 163/93 (116) 96 12/07/17 06:00 82 12/07/17 05:00 80 12/07/17 04:00 73 12/07/17 04:00 97.0 82 16 167/99 (121) 95 12/07/17 03:00 74 12/07/17 02:00 72 12/07/17 01:00 78 12/07/17 00:00 98.6 92 16 151/87 (108) 98 12/07/17 00:00 86 12/06/17 23:00 78 12/06/17 22:18 96 Nasal Cannula 3.00 12/06/17 22:00 74 12/06/17 21:00 76 12/06/17 20:00 77 12/06/17 20:00 98.5 87 16 154/93 (113) 100 12/06/17 19:00 84 12/06/17 18:00 98.5 83 18 158/88 (111) 99 12/06/17 12:00 112 12/06/17 11:20 98.2 95 18 176/86 (116) 96 12/06/17 11:00 92 I/O 12/06/17 12/06/17 12/06/17 12/07/17 12/07/17 12/07/17 07:00 15:00 23:00 07:00 15:00 23:00 Intake Total 480 ml 100 ml 250 ml Output Total 625 ml 650 ml 150 ml Balance -145 ml 100 ml -400 ml -150 ml Intake Oral 480 ml 250 ml IV Total 100 ml Output Urine Total 625 ml 650 ml 150 ml # Voids 1 # Bowel Movements 1 Result Diagram: 12/07/17 0505 12/07/17 0505 Objective Remarks GENERAL: NAD, A&Ox3 HEAD: Normocephalic. NECK: Supple, trachea midline. No lymphadenopathy. EYES: No scleral icterus. No injection or drainage. CARDIOVASCULAR: Regular rate and rhythm without murmurs, gallops, or rubs. RESPIRATORY: Breath sounds equal bilaterally. No accessory muscle use. GASTROINTESTINAL: Abdomen soft, non-tender, nondistended. MUSCULOSKELETAL: No cyanosis, or edema. SKIN: Warm and dry. NEURO: No focal neurological deficitis. A/P Problem List: (1) Renal transplant recipient ICD Code: Z94.0 - Kidney transplant status Status: Chronic (2) Pneumonia ICD Code: J18.9 - Pneumonia, unspecified organism Status: Acute Permanent Comment: 12/11: Given 23 polyvalent pneumonia vaccine 12/12:13 valent pneumonia vaccine is due Last Edited By: Kiera Cesar on Jan 29, 2016 08:39 (3) MEJIA (acute kidney injury) ICD Code: N17.9 - Acute kidney failure, unspecified Status: Acute (4) Sepsis ICD Code: A41.9 - Sepsis, unspecified organism Status: Acute (5) ESRD (end stage renal disease) ICD Code: N18.6 - End stage renal disease Status: Acute (6) Diabetes mellitus ICD Code: E11.9 - Type 2 diabetes mellitus without complications Status: Chronic Assessment and Plan 57-year-old male with history of diabetes mellitus, kidney transplant on immunosuppressants presenting with shortness of breath Sepsis Resolved Community Acquired Pneumonia Immunocompromise Continued improvements, but not to baseline Follow clinically Continue Antibiotics Continue oxygen as needed Azithromycin Rocephin Flagyl Chronic kidney disease End-stage renal disease Nephrology following Follow renal function Continue dialysis Elevated Troponin Appears to be a combination of inflammation from pneumonia and degree of renal disease (MEJIA). No further need for cardiac work up Diabetes mellitus type 2 Follow blood sugars Insulin sliding scale Diabetic diet Diarrhea Improving Continue Flagyl C. Diff screen pending Hypertension Continue baseline treatment Follow blood pressures Adjust treatments as needed metoprolol and Norvasc End-stage renal disease status post kidney transplant-restart tacrolimus Continue prednisone, mycophenolate. Continue renal medications Nephrology following Anemia Follow CBC DVT prophylaxis Heparin Problem Qualifiers (1) Sepsis: Qualified Codes: A41.9 - Sepsis, unspecified organism Kam Bolden MD Dec 07, 2017 10:58
[2017-12-07] MEDS: METOPROLOL SUCCINATE 50 MG EXTENDED RELEASE TAB PO SCH (11:33)
[2017-12-07] MEDS: LOPERAMIDE HCL 2 MG CAP PO PRN ×2 (14:05→21:51)
--- NOTE | 2017-12-07 14:36 | HHI.NPPN ---
Subjective History of Present Illness 57-year-old -Uk[place] male with history of failing kidney transplant, he developed fever and shortness of breath and has facial swelling Review of Systems General Constitutional: Fatigue Respiratory Lungs: SOB Objective Data Data Vital Signs Date Time Temp Pulse Resp B/P (MAP) Pulse Ox O2 Delivery O2 Flow Rate FiO2 12/07/17 13:00 18 12/07/17 12:00 83 12/07/17 11:28 99.2 86 18 156/87 (110) 96 12/07/17 11:21 93 Nasal Cannula 2.00 12/07/17 11:00 81 12/07/17 10:00 78 12/07/17 09:00 80 12/07/17 08:12 98.3 75 18 163/93 (116) 96 12/07/17 08:00 72 12/07/17 07:00 73 12/07/17 06:00 82 12/07/17 05:00 80 12/07/17 04:00 73 12/07/17 04:00 97.0 82 16 167/99 (121) 95 12/07/17 03:00 74 12/07/17 02:00 72 12/07/17 01:00 78 12/07/17 00:00 98.6 92 16 151/87 (108) 98 12/07/17 00:00 86 12/06/17 23:00 78 12/06/17 22:18 96 Nasal Cannula 3.00 12/06/17 22:00 74 12/06/17 21:00 76 12/06/17 20:00 77 12/06/17 20:00 98.5 87 16 154/93 (113) 100 12/06/17 19:00 84 12/06/17 18:00 98.5 83 18 158/88 (111) 99 -: 12/07/17 0505 12/07/17 0505 Microbiology 12/07/17 Stool Pus (PARAMJIT) - Final, Complete NO WBC'S SEEN 12/07/17 , Received Pending 12/07/17 Rotavirus Antigen - Final, Complete NEGATIVE - ROTAVIRUS ANTIGEN IS ABSEN... 12/07/17 Gram Stain - Final, Resulted 12/07/17 Sputum Culture, Resulted Pending Physical Exam General Appearance: Well Developed, Well Nourished Neck Neck Exam: Neck Supple Pulmonary Resp Exam: Clear Bilaterally, Breath Sounds Equal Cardiology CV Exam: Regular, Normal Sinus Rhythm Gastrointestinal/Abdomen GI Exam: Soft, Non-Tender, Bowel Sounds Present Extremeties Extremities Exam: No Edema Neurologic Neuro Exam: Alert Assessment/Plan Problem List: (1) ESRD (end stage renal disease) ICD Codes: N18.6 - End stage renal disease Status: Acute Plan: Patient kidney transplant has failed and he has underlying chronic changes Consulted Dr. Sauceda for AV fistula placement who will fu as out patient, he may need a Permcath once infection is better HD today [facility] start Zemplar 1 mcg (2) Acidosis, metabolic ICD Codes: E87.2 - Acidosis Plan: Due to kidney failure (3) Renal transplant recipient ICD Codes: Z94.0 - Kidney transplant status Status: Chronic Plan: Patient was maintained on Prograf, CellCept and prednisone (4) Hypertension ICD Codes: I10 - Essential (primary) hypertension Status: Acute Plan: Continue to monitor (5) PNA (pneumonia) ICD Codes: J18.9 - Pneumonia Status: Acute Plan: Started on Zithromax and ceftriaxone (6) DM (diabetes mellitus) ICD Codes: E11.9 - Type 2 diabetes mellitus without complications Status: Acute Plan: Monitor blood glucose Problem Qualifiers (1) PNA (pneumonia): Qualified Codes: J18.1 - Lobar pneumonia, unspecified organism Chito Pereira MD Dec 07, 2017 14:36
[2017-12-07] MEDS ORDERED: PARICALCITOL 1 MCG CAP PO ONE (15:15)
[2017-12-07] MEDS: HEPARIN SODIUM - IV 10,000 UNITS/10 ML VIAL PRN (17:27)
[2017-12-07] MEDS: GENTAMICIN SULFATE 20 MG/2 ML VIAL OTHER PRN (17:27)
[2017-12-07] MEDS: FERROUS SULFATE 325 MG (65 MG ELEMENTAL IRON) TAB PO SCH (21:51)
[2017-12-08] VITALS (29 sets, daily range): BP systolic 135–162; BP diastolic 81–96; PULSE 62–95; RESP 16–20; TEMP 98.1–99; O2SAT 95–98
[2017-12-08] MEDS: metroNIDAZOLE 500 MG INJ 100 ML IV SCH (01:16)
[2017-12-08] MEDS: RESP: ALBUTEROL 2.5 MG/IPRATROPIUM 0.5 MG NEB (SCH) INH ×4 (03:30→21:06)
[2017-12-08] MEDS: ACETAMINOPHEN 325 MG TAB PO PRN (04:03)
[2017-12-08] MEDS: HEPARIN SODIUM - SQ 10,000 UNITS/ML VIAL SQ SCH ×3 (05:05→22:00)
[2017-12-08 07:11] LABS: AUTOMATED NEUTROPHIL # 6.3 TH/MM3 (1.8-7.7); BASOPHIL # 0.1 TH/MM3 (0-0.2); BASOPHIL % 0.6 % (0.0-2.0); EOSINOPHIL # 0.1 TH/MM3 (0-0.4); EOSINOPHIL % 1.1 % (0.0-4.0); HEMATOCRIT 25.2 % (39.0-51.0); HEMOGLOBIN 8.2 GM/DL (13.0-17.0); LYMPH % 13.8 % (9.0-44.0); LYMPHOCYTE # 1.2 TH/MM3 (1.0-4.8); MEAN CELL VOLUME 74.9 FL (80.0-100.0); MEAN CORPUSCULAR HEMOGLOBIN 24.3 PG (27.0-34.0); MEAN CORPUSCULAR HGB CONC 32.4 % (32.0-36.0); MEAN PLATELET VOLUME 8.7 FL (7.0-11.0); MONO % 9.7 % (0.0-8.0); MONOCYTE # 0.8 TH/MM3 (0-0.9); NEUT % 74.8 % (16.0-70.0); PLATELET COUNT 168 TH/MM3 (150-450); RED BLOOD COUNT 3.36 MIL/MM3 (4.50-5.90); RED CELL DISTRIBUTION WIDTH 16.8 % (11.6-17.2); WHITE BLOOD COUNT 8.4 TH/MM3 (4.0-11.0)
[2017-12-08 07:19] LABS: ALBUMIN 2.1 GM/DL (3.4-5.0); ALKALINE PHOSPHATASE 56 U/L (45-117); ALT (GPT) 12 U/L (12-78); AST (GOT) 19 U/L (15-37); BICARBONATE 28.8 MEQ/L (21.0-32.0); BLOOD UREA NITROGEN 30 MG/DL (7-18); CALCIUM 7.8 MG/DL (8.5-10.1); CHLORIDE 106 MEQ/L (98-107); CREATININE 2.95 MG/DL (0.60-1.30); GLOMERULAR FILTRATION RATE 27 ML/MIN (>89); GLUCOSE,RANDOM 81 MG/DL (74-106); SODIUM (NA) 142 MEQ/L (136-145); TOTAL BILIRUBIN ADULT 0.4 MG/DL (0.2-1.0); TOTAL PROTEIN 5.5 GM/DL (6.4-8.2)
[2017-12-08] MEDS: INSULIN ASPART SUPPLEMENTAL SCALE SQ SCH ×4 (08:00→22:46)
[2017-12-08 08:58] LABS: BANDS 9 % (0-6); LYMPHOCYTES 9 % (9-44); MONOCYTES 6 % (0-8); NEUTROPHIL # MANUAL DIFF 7.1 TH/MM3 (1.8-7.7); POLYS (SEG NEUTROPHILS) 76 % (16-70)
[2017-12-08 08:59] LABS: ACANTHOCYTES 1+ (NORMAL); KERATOCYTES OCC (NORMAL); OVALOCYTES 1+ (NORMAL)
[2017-12-08] MEDS: SODIUM CHLORIDE 0.9% FLUSH 10 ML FLUSH IV FLUSH SCH ×2 (09:00→22:46)
[2017-12-08] MEDS: INSULIN DETEMIR 100 UNITS/ML VIAL SQ SCH (09:00)
[2017-12-08] MEDS: PARICALCITOL 1 MCG CAP PO SCH (09:00)
[2017-12-08] MEDS: CHOLECALCIFEROL (VIT D3) 400 UNIT TAB PO SCH (09:18)
[2017-12-08] MEDS: CHOLECALCIFEROL (VIT D3) 1000 UNIT TAB PO SCH (09:18)
[2017-12-08] MEDS: METOPROLOL SUCCINATE 50 MG EXTENDED RELEASE TAB PO SCH (09:18)
[2017-12-08] MEDS: SODIUM BICARBONATE 650 MG TAB PO SCH (09:18)
[2017-12-08] MEDS: hydrALAZINE HCL 25 MG TAB PO SCH ×3 (09:18→17:23)
[2017-12-08] MEDS: AZITHROMYCIN 250 MG TAB PO SCH (09:19)
[2017-12-08] MEDS: predniSONE 10 MG TAB PO SCH (09:19)
[2017-12-08] MEDS: MYCOPHENOLATE MOFETIL 500 MG TAB PO SCH ×2 (09:19→22:43)
[2017-12-08] MEDS: LEVOTHYROXINE SODIUM 25 MCG TAB PO SCH (09:19)
[2017-12-08] MEDS: FERROUS SULFATE 325 MG (65 MG ELEMENTAL IRON) TAB PO SCH ×2 (09:20→22:43)
[2017-12-08] MEDS: MAGNESIUM OXIDE 400 MG TAB PO SCH (09:20)
--- NOTE | 2017-12-08 10:07 | HHI.PR ---
Subjective Remarks Renal function continues to improve with dialysis. Creatinine level has decreased to 2.9 today. No complaints from the patient. Objective Vital Signs Date Time Temp Pulse Resp B/P (MAP) Pulse Ox O2 Delivery O2 Flow Rate FiO2 12/08/17 06:00 67 12/08/17 05:00 68 12/08/17 04:00 62 12/08/17 03:57 98.7 67 16 150/91 (110) 97 12/08/17 03:00 68 12/08/17 02:00 70 12/08/17 01:00 70 12/08/17 00:00 70 12/07/17 23:42 98.5 73 16 155/91 (112) 98 12/07/17 23:00 74 12/07/17 23:00 70 12/07/17 22:00 70 12/07/17 21:30 98.9 79 16 163/92 (115) 91 12/07/17 21:00 76 12/07/17 20:56 94 Nasal Cannula 2.00 12/07/17 19:00 79 12/07/17 17:00 74 12/07/17 16:00 76 12/07/17 15:20 98.4 80 18 144/79 (100) 95 12/07/17 15:00 77 12/07/17 14:00 80 12/07/17 13:00 82 12/07/17 13:00 18 12/07/17 12:00 83 12/07/17 11:28 99.2 86 18 156/87 (110) 96 12/07/17 11:21 93 Nasal Cannula 2.00 12/07/17 11:00 81 I/O 12/07/17 12/07/17 12/07/17 12/08/17 12/08/17 12/08/17 07:00 15:00 23:00 07:00 15:00 23:00 Intake Total 1200 ml 340 ml Output Total 150 ml 1775 ml 500 ml Balance -150 ml -575 ml -160 ml Intake Oral 1200 ml 240 ml IV Total 100 ml Output Urine Total 150 ml 275 ml 500 ml Hemodialysis 1500 ml # Voids 1 # Bowel Movements 1 Result Diagram: 12/08/1752212/08/17522 Objective Remarks GENERAL: NAD, A&Ox3 HEAD: Normocephalic. NECK: Supple, trachea midline. No lymphadenopathy. EYES: No scleral icterus. No injection or drainage. CARDIOVASCULAR: Regular rate and rhythm without murmurs, gallops, or rubs. RESPIRATORY: Breath sounds equal bilaterally. No accessory muscle use. GASTROINTESTINAL: Abdomen soft, non-tender, nondistended. MUSCULOSKELETAL: No cyanosis, or edema. SKIN: Warm and dry. NEURO: No focal neurological deficitis. A/P Problem List: (1) Renal transplant recipient ICD Code: Z94.0 - Kidney transplant status Status: Chronic (2) Pneumonia ICD Code: J18.9 - Pneumonia, unspecified organism Status: Acute Permanent Comment: 12/11: Given 23 polyvalent pneumonia vaccine 12/12:13 valent pneumonia vaccine is due Last Edited By: Kiera Cesar on Jan 29, 2016 08:39 (3) MEJIA (acute kidney injury) ICD Code: N17.9 - Acute kidney failure, unspecified Status: Acute (4) Sepsis ICD Code: A41.9 - Sepsis, unspecified organism Status: Acute (5) ESRD (end stage renal disease) ICD Code: N18.6 - End stage renal disease Status: Acute (6) Diabetes mellitus ICD Code: E11.9 - Type 2 diabetes mellitus without complications Status: Chronic Assessment and Plan 57-year-old male with history of diabetes mellitus, kidney transplant on immunosuppressants presenting with shortness of breath Continued improvement on dialysis. Continue monitoring renal function. CMP ordered for further monitoring. Continue monitoring CBC for infectious signs. Sepsis Resolved Community Acquired Pneumonia Immunocompromise Continued improvements, but not to baseline Follow clinically Continue Antibiotics Continue oxygen as needed Azithromycin Rocephin Chronic kidney disease End-stage renal disease Nephrology following Follow renal function Continue dialysis Elevated Troponin Appears to be a combination of inflammation from pneumonia and degree of renal disease (MEJIA). No further need for cardiac work up Diabetes mellitus type 2 Follow blood sugars Insulin sliding scale Diabetic diet Diarrhea Improving Flagyl discontinued C. Diff screen negative As needed Imodium Hypertension Continue baseline treatment Follow blood pressures Adjust treatments as needed metoprolol and Norvasc End-stage renal disease status post kidney transplant-restart tacrolimus Continue prednisone, mycophenolate. Continue renal medications Nephrology following Continue dialysis. Anemia Follow CBC DVT prophylaxis Heparin Problem Qualifiers (1) Sepsis: Qualified Codes: A41.9 - Sepsis, unspecified organism Kam Bolden MD Dec 08, 2017 10:07
[2017-12-08] MEDS: TACROLIMUS 5 MG CAP PO SCH ×2 (10:50→22:42)
--- NOTE | 2017-12-08 14:08 | HHI.NPPN ---
Subjective History of Present Illness 57-year-old -Angolan male with history of failing kidney transplant, he developed fever and shortness of breath and has facial swelling Review of Systems General Constitutional: Fatigue Respiratory Lungs: SOB Objective Data Data Vital Signs Date Time Temp Pulse Resp B/P (MAP) Pulse Ox O2 Delivery O2 Flow Rate FiO2 12/08/17 11:10 99.0 75 18 145/88 (107) 95 12/08/17 10:10 Nasal Cannula 1.00 12/08/17 07:00 98.3 68 18 154/94 (114) 98 12/08/17 06:00 67 12/08/17 05:00 68 12/08/17 04:00 62 12/08/17 03:57 98.7 67 16 150/91 (110) 97 12/08/17 03:00 68 12/08/17 02:00 70 12/08/17 01:00 70 12/08/17 00:00 70 12/07/17 23:42 98.5 73 16 155/91 (112) 98 12/07/17 23:00 74 12/07/17 23:00 70 12/07/17 22:00 70 12/07/17 21:30 98.9 79 16 163/92 (115) 91 12/07/17 21:00 76 12/07/17 20:56 94 Nasal Cannula 2.00 12/07/17 19:00 79 12/07/17 17:00 74 12/07/17 16:00 76 12/07/17 15:20 98.4 80 18 144/79 (100) 95 12/07/17 15:00 77 -: 12/08/17 0523 12/08/17 0523 Physical Exam General Appearance: Well Developed, Well Nourished Neck Neck Exam: Neck Supple Pulmonary Resp Exam: Clear Bilaterally, Breath Sounds Equal Cardiology CV Exam: Regular, Normal Sinus Rhythm Gastrointestinal/Abdomen GI Exam: Soft, Non-Tender, Bowel Sounds Present Extremeties Extremities Exam: No Edema Neurologic Neuro Exam: Alert Assessment/Plan Problem List: (1) ESRD (end stage renal disease) ICD Codes: N18.6 - End stage renal disease Status: Acute Plan: Patient kidney transplant has failed and he has underlying chronic changes Consulted Dr. Sauceda for AV fistula placement who will fu as out patient, he may need a Permcath once infection is better HD dialysis done yesterday 1.5 L removed HPTH on Zemplar 1 mcg (2) Acidosis, metabolic ICD Codes: E87.2 - Acidosis Plan: Due to kidney failure (3) Renal transplant recipient ICD Codes: Z94.0 - Kidney transplant status Status: Chronic Plan: Patient was maintained on Prograf, CellCept and prednisone (4) Hypertension ICD Codes: I10 - Essential (primary) hypertension Status: Acute Plan: Continue to monitor (5) PNA (pneumonia) ICD Codes: J18.9 - Pneumonia Status: Acute Plan: Started on Zithromax and ceftriaxone (6) DM (diabetes mellitus) ICD Codes: E11.9 - Type 2 diabetes mellitus without complications Status: Acute Plan: Monitor blood glucose Problem Qualifiers (1) PNA (pneumonia): Qualified Codes: J18.1 - Lobar pneumonia, unspecified organism Chito Pereira MD Dec 08, 2017 14:08
[2017-12-09] VITALS (28 sets, daily range): BP systolic 114–160; BP diastolic 56–99; PULSE 63–88; RESP 15–18; TEMP 98.2–98.7; O2SAT 92–98
[2017-12-09] MEDS: RESP: ALBUTEROL 2.5 MG/IPRATROPIUM 0.5 MG NEB (SCH) INH ×3 (03:29→15:56)
[2017-12-09] MEDS: ACETAMINOPHEN 325 MG TAB PO PRN ×4 (03:53→21:23)
[2017-12-09] MEDS: HEPARIN SODIUM - SQ 10,000 UNITS/ML VIAL SQ SCH ×3 (05:32→22:00)
[2017-12-09 07:08] LABS: AUTOMATED NEUTROPHIL # 6.2 TH/MM3 (1.8-7.7); BASOPHIL % 0.5 % (0.0-2.0); EOSINOPHIL # 0.1 TH/MM3 (0-0.4); EOSINOPHIL % 0.9 % (0.0-4.0); HEMATOCRIT 26.2 % (39.0-51.0); HEMOGLOBIN 8.4 GM/DL (13.0-17.0); LYMPH % 14.6 % (9.0-44.0); LYMPHOCYTE # 1.2 TH/MM3 (1.0-4.8); MEAN CELL VOLUME 74.8 FL (80.0-100.0); MEAN CORPUSCULAR HEMOGLOBIN 24.1 PG (27.0-34.0); MEAN CORPUSCULAR HGB CONC 32.1 % (32.0-36.0); MEAN PLATELET VOLUME 8.1 FL (7.0-11.0); MONO % 9.7 % (0.0-8.0); MONOCYTE # 0.8 TH/MM3 (0-0.9); NEUT % 74.3 % (16.0-70.0); PLATELET COUNT 184 TH/MM3 (150-450); RED CELL DISTRIBUTION WIDTH 16.5 % (11.6-17.2); WHITE BLOOD COUNT 8.3 TH/MM3 (4.0-11.0)
[2017-12-09 07:14] LABS: ALBUMIN 2.3 GM/DL (3.4-5.0); ALKALINE PHOSPHATASE 55 U/L (45-117); ALT (GPT) 14 U/L (12-78); AST (GOT) 13 U/L (15-37); BICARBONATE 25.6 MEQ/L (21.0-32.0); BLOOD UREA NITROGEN 42 MG/DL (7-18); CALCIUM 8.3 MG/DL (8.5-10.1); CHLORIDE 105 MEQ/L (98-107); CREATININE 3.69 MG/DL (0.60-1.30); GLOMERULAR FILTRATION RATE 21 ML/MIN (>89); GLUCOSE,RANDOM 113 MG/DL (74-106); PHOSPHORUS 3.9 MG/DL (2.5-4.9); SODIUM (NA) 142 MEQ/L (136-145); TOTAL BILIRUBIN ADULT 0.3 MG/DL (0.2-1.0); TOTAL PROTEIN 5.5 GM/DL (6.4-8.2)
[2017-12-09] MEDS: INSULIN ASPART SUPPLEMENTAL SCALE SQ SCH ×4 (08:00→21:00)
[2017-12-09 08:49] LABS: ACANTHOCYTES OCC (NORMAL); OVALOCYTES 1+ (NORMAL)
[2017-12-09] MEDS: MAGNESIUM OXIDE 400 MG TAB PO SCH ×2 (09:00→17:23)
[2017-12-09] MEDS: SODIUM BICARBONATE 650 MG TAB PO SCH ×2 (09:00→17:23)
[2017-12-09] MEDS: hydrALAZINE HCL 25 MG TAB PO SCH ×3 (09:00→17:24)
--- NOTE | 2017-12-09 10:12 | HHI.NPPN ---
Subjective History of Present Illness 57-year-old -Bulgarian male with history of failing kidney transplant, he developed fever and shortness of breath and has facial swelling Review of Systems General Constitutional: Fatigue Respiratory Lungs: SOB Objective Data Data Vital Signs Date Time Temp Pulse Resp B/P (MAP) Pulse Ox O2 Delivery O2 Flow Rate FiO2 12/09/17 07:22 98.5 70 16 158/92 (114) 95 12/09/17 06:00 70 12/09/17 05:00 66 12/09/17 04:53 16 12/09/17 04:00 76 12/09/17 03:44 98.2 70 18 158/97 (117) 96 12/09/17 03:00 66 12/09/17 02:00 68 12/09/17 01:00 68 12/09/17 00:06 76 12/08/17 23:00 76 12/08/17 22:50 98.5 95 20 162/96 (118) 95 12/08/17 22:00 76 12/08/17 21:00 72 12/08/17 20:00 76 12/08/17 19:36 98.1 73 16 152/93 (112) 96 12/08/17 19:00 74 12/08/17 18:00 83 12/08/17 17:00 79 12/08/17 16:00 80 12/08/17 15:07 95 Nasal Cannula 2.00 12/08/17 15:00 98.6 79 18 135/81 (99) 98 12/08/17 15:00 79 12/08/17 14:00 78 12/08/17 13:00 72 12/08/17 12:00 72 12/08/17 11:10 99.0 75 18 145/88 (107) 95 12/08/17 11:00 75 -: 12/09/17 0448 12/09/17 0448 Physical Exam General Appearance: Well Developed, Well Nourished Neck Neck Exam: Neck Supple Pulmonary Resp Exam: Clear Bilaterally, Breath Sounds Equal Cardiology CV Exam: Regular, Normal Sinus Rhythm Gastrointestinal/Abdomen GI Exam: Soft, Non-Tender, Bowel Sounds Present Extremeties Extremities Exam: No Edema Neurologic Neuro Exam: Alert Assessment/Plan Problem List: (1) ESRD (end stage renal disease) ICD Codes: N18.6 - End stage renal disease Status: Acute Plan: Patient kidney transplant has failed and he has underlying chronic changes Consulted Dr. Sauceda for AV fistula placement who will fu as out patient, he may need a Permcath once infection is better HD dialysis seen during treatment 1.5 L UF HPTH on Zemplar 1 mcg (2) Acidosis, metabolic ICD Codes: E87.2 - Acidosis Plan: Due to kidney failure (3) Renal transplant recipient ICD Codes: Z94.0 - Kidney transplant status Status: Chronic Plan: Patient was maintained on Prograf, CellCept and prednisone (4) Hypertension ICD Codes: I10 - Essential (primary) hypertension Status: Acute Plan: Continue to monitor (5) PNA (pneumonia) ICD Codes: J18.9 - Pneumonia Status: Acute Plan: Started on Zithromax and ceftriaxone (6) DM (diabetes mellitus) ICD Codes: E11.9 - Type 2 diabetes mellitus without complications Status: Acute Plan: Monitor blood glucose Problem Qualifiers (1) PNA (pneumonia): Qualified Codes: J18.1 - Lobar pneumonia, unspecified organism Chito Pereira MD Dec 09, 2017 10:11
[2017-12-09] MEDS: HEPARIN SODIUM - IV 10,000 UNITS/10 ML VIAL PRN (11:28)
[2017-12-09] MEDS: GENTAMICIN SULFATE 20 MG/2 ML VIAL OTHER PRN (11:28)
[2017-12-09] MEDS: EPOETIN ALFA 10,000 UNITS/ML VIAL IV PUSH PRN (11:28)
[2017-12-09] MEDS: PARICALCITOL 1 MCG CAP PO SCH (12:24)
[2017-12-09] MEDS: LEVOTHYROXINE SODIUM 25 MCG TAB PO SCH (12:24)
[2017-12-09] MEDS: MYCOPHENOLATE MOFETIL 500 MG TAB PO SCH ×2 (12:25→21:24)
[2017-12-09] MEDS: predniSONE 10 MG TAB PO SCH (12:27)
[2017-12-09] MEDS: METOPROLOL SUCCINATE 50 MG EXTENDED RELEASE TAB PO SCH (12:27)
[2017-12-09] MEDS: ATORVASTATIN 80 MG TAB PO SCH (12:27)
[2017-12-09] MEDS: TACROLIMUS 5 MG CAP PO SCH ×2 (12:27→21:24)
[2017-12-09] MEDS: guaiFENesin/DEXTROMETHORPHAN 200 MG/20 MG/10 ML CUP PO PRN (12:28)
[2017-12-09] MEDS: SODIUM CHLORIDE 0.9% FLUSH 10 ML FLUSH IV FLUSH SCH ×2 (12:28→19:24)
[2017-12-09] MEDS: INSULIN DETEMIR 100 UNITS/ML VIAL SQ SCH (12:30)
[2017-12-09] MEDS ORDERED: fentaNYL CITRATE 250 MCG/5 ML AMP ONE (14:05)
[2017-12-09] MEDS ORDERED: MIDAZOLAM HCL 5 MG/5 ML VIAL ONE (14:05)
[2017-12-09] MEDS ORDERED: LIDOCAINE 1%/EPINEPHrine 1:100,000 SOLN 20 ML VIAL ONE (14:38)
--- NOTE | 2017-12-09 15:04 | HHI.PR ---
Subjective Remarks Permacath placement pending. It appears patient will continue dialysis at time of discharge at this point. He has no new complaints today. Pneumonia is resolving well. Objective Vital Signs Date Time Temp Pulse Resp B/P (MAP) Pulse Ox O2 Delivery O2 Flow Rate FiO2 12/09/17 13:00 88 12/09/17 12:41 98.7 70 16 160/99 (119) 98 12/09/17 12:00 84 12/09/17 11:00 66 12/09/17 10:00 74 12/09/17 09:00 84 12/09/17 08:00 84 12/09/17 07:22 98.5 70 16 158/92 (114) 95 12/09/17 07:00 67 12/09/17 06:00 70 12/09/17 05:00 66 12/09/17 04:53 16 12/09/17 04:00 76 12/09/17 03:44 98.2 70 18 158/97 (117) 96 12/09/17 03:00 66 12/09/17 02:00 68 12/09/17 01:00 68 12/09/17 00:06 76 12/08/17 23:00 76 12/08/17 22:50 98.5 95 20 162/96 (118) 95 12/08/17 22:00 76 12/08/17 21:00 72 12/08/17 20:00 76 12/08/17 19:36 98.1 73 16 152/93 (112) 96 12/08/17 19:00 74 12/08/17 18:00 83 12/08/17 17:00 79 12/08/17 16:00 80 12/08/17 15:07 95 Nasal Cannula 2.00 I/O 12/08/17 12/08/17 12/08/17 12/09/17 12/09/17 12/09/17 07:00 15:00 23:00 07:00 15:00 23:00 Intake Total 340 ml 1300 ml Output Total 500 ml 850 ml 200 ml 1800 ml Balance -160 ml 450 ml -200 ml -1800 ml Intake Oral 240 ml 1300 ml IV Total 100 ml Output Urine Total 500 ml 850 ml 200 ml 300 ml Hemodialysis 1500 ml Result Diagram: 12/09/17 0448 12/09/17447 Objective Remarks GENERAL: NAD, A&Ox3 HEAD: Normocephalic. NECK: Supple, trachea midline. No lymphadenopathy. EYES: No scleral icterus. No injection or drainage. CARDIOVASCULAR: Regular rate and rhythm without murmurs, gallops, or rubs. RESPIRATORY: Breath sounds equal bilaterally. No accessory muscle use. GASTROINTESTINAL: Abdomen soft, non-tender, nondistended. MUSCULOSKELETAL: No cyanosis, or edema. SKIN: Warm and dry. NEURO: No focal neurological deficitis. A/P Problem List: (1) Renal transplant recipient ICD Code: Z94.0 - Kidney transplant status Status: Chronic (2) Pneumonia ICD Code: J18.9 - Pneumonia, unspecified organism Status: Acute Permanent Comment: 12/11: Given 23 polyvalent pneumonia vaccine 12/12:13 valent pneumonia vaccine is due Last Edited By: Kiera Cesar on Jan 29, 2016 08:39 (3) MEJIA (acute kidney injury) ICD Code: N17.9 - Acute kidney failure, unspecified Status: Acute (4) Sepsis ICD Code: A41.9 - Sepsis, unspecified organism Status: Acute (5) ESRD (end stage renal disease) ICD Code: N18.6 - End stage renal disease Status: Acute (6) Diabetes mellitus ICD Code: E11.9 - Type 2 diabetes mellitus without complications Status: Chronic Assessment and Plan 57-year-old male with history of diabetes mellitus, kidney transplant on immunosuppressants presenting with shortness of breath Permacath placement pending for today. Continued improvement on dialysis. Continue monitoring renal function. CMP ordered for further monitoring. Continue monitoring CBC for infectious signs. Plan for outpatient dialysis. Potential discharge in 1-2 days after outpatient dialysis arrangements completed. Sepsis Resolved Community Acquired Pneumonia Immunocompromise Continued improvements, but not to baseline Follow clinically Continue Antibiotics Continue oxygen as needed Azithromycin Rocephin Chronic kidney disease End-stage renal disease Nephrology following Follow renal function Continue dialysis Elevated Troponin Appears to be a combination of inflammation from pneumonia and degree of renal disease (MEJIA). No further need for cardiac work up Diabetes mellitus type 2 Follow blood sugars Insulin sliding scale Diabetic diet Diarrhea Improving Flagyl discontinued C. Diff screen negative As needed Imodium Hypertension Continue baseline treatment Follow blood pressures Adjust treatments as needed metoprolol and Norvasc End-stage renal disease status post kidney transplant-restart tacrolimus Continue prednisone, mycophenolate. Continue renal medications Nephrology following Continue dialysis. Anemia Follow CBC DVT prophylaxis Heparin Problem Qualifiers (1) Sepsis: Qualified Codes: A41.9 - Sepsis, unspecified organism Kam Bolden MD Dec 09, 2017 15:04
--- NOTE | 2017-12-09 15:04 | PD.RAD ---
Post Procedure Progress Note Pre Procedure Diagnosis: (1) ESRD (end stage renal disease) Post Procedure Diagnosis: (1) ESRD (end stage renal disease) Procedure Date: Dec 09, 2017 Supervising Radiologist: Jad Romero JR Proceduralist/Assist: Bay Brewer, RT(R), Zahra Jenkins, RT(R) Anesthesia: Conscious Sedation Plan of Activity Patient to Unit: ROPU See PACS Report for procedural detail/treatment Central Venous Access Device Procedure 1 Right Internal Jugular Hemodialysis Catheter Tunneled Placement dual lumen Nigerian: 15 Findings: Exchanged RIJ Vascath for Permcath. Functions well. OK to use. Plan Remove sutures in 2-3 weeks. Jr. Nick,Jad Daigle MD Dec 09, 2017 15:04
[2017-12-09] MEDS ORDERED: SODIUM CHLORIDE 0.9% FLUSH 10 ML FLUSH IV FLUSH PRN (15:15)
[2017-12-09] MEDS ORDERED: HEPARIN SODIUM - IV 2,000 UNITS/2 ML VIAL IV FLUSH PRN (15:15)
[2017-12-09] MEDS: CHOLECALCIFEROL (VIT D3) 1000 UNIT TAB PO SCH (17:22)
[2017-12-09] MEDS: CHOLECALCIFEROL (VIT D3) 400 UNIT TAB PO SCH (17:22)
[2017-12-09] MEDS: FERROUS SULFATE 325 MG (65 MG ELEMENTAL IRON) TAB PO SCH ×2 (17:22→19:25)
[2017-12-09] MEDS: AZITHROMYCIN 250 MG TAB PO SCH (17:24)
[2017-12-10] VITALS (7 sets, daily range): BP systolic 129–172; BP diastolic 67–99; PULSE 63–90; RESP 16–18; TEMP 98–99.1; O2SAT 94–98
[2017-12-10] MEDS: HEPARIN SODIUM - SQ 10,000 UNITS/ML VIAL SQ SCH ×3 (05:15→22:00)
[2017-12-10] MEDS: ACETAMINOPHEN 325 MG TAB PO PRN ×2 (06:21→12:37)
[2017-12-10 07:58] LABS: AUTOMATED NEUTROPHIL # 6.6 TH/MM3 (1.8-7.7); BASOPHIL % 0.4 % (0.0-2.0); EOSINOPHIL # 0.1 TH/MM3 (0-0.4); EOSINOPHIL % 1.6 % (0.0-4.0); HEMATOCRIT 26.8 % (39.0-51.0); HEMOGLOBIN 8.6 GM/DL (13.0-17.0); LYMPH % 14.2 % (9.0-44.0); LYMPHOCYTE # 1.3 TH/MM3 (1.0-4.8); MEAN CELL VOLUME 75.7 FL (80.0-100.0); MEAN CORPUSCULAR HEMOGLOBIN 24.3 PG (27.0-34.0); MEAN CORPUSCULAR HGB CONC 32.1 % (32.0-36.0); MEAN PLATELET VOLUME 8.2 FL (7.0-11.0); MONO % 9.9 % (0.0-8.0); MONOCYTE # 0.9 TH/MM3 (0-0.9); NEUT % 73.9 % (16.0-70.0); PLATELET COUNT 234 TH/MM3 (150-450); RED BLOOD COUNT 3.54 MIL/MM3 (4.50-5.90); RED CELL DISTRIBUTION WIDTH 16.3 % (11.6-17.2); WHITE BLOOD COUNT 8.9 TH/MM3 (4.0-11.0)
[2017-12-10] MEDS: INSULIN ASPART SUPPLEMENTAL SCALE SQ SCH ×4 (08:00→22:39)
[2017-12-10] MEDS: SODIUM BICARBONATE 650 MG TAB PO SCH (08:48)
[2017-12-10] MEDS: hydrALAZINE HCL 25 MG TAB PO SCH ×3 (08:48→16:49)
[2017-12-10] MEDS: AZITHROMYCIN 250 MG TAB PO SCH (08:48)
[2017-12-10] MEDS: MAGNESIUM OXIDE 400 MG TAB PO SCH (08:49)
[2017-12-10] MEDS: predniSONE 10 MG TAB PO SCH (08:50)
[2017-12-10] MEDS: LEVOTHYROXINE SODIUM 25 MCG TAB PO SCH (08:50)
[2017-12-10] MEDS: CHOLECALCIFEROL (VIT D3) 400 UNIT TAB PO SCH (08:50)
[2017-12-10] MEDS: FERROUS SULFATE 325 MG (65 MG ELEMENTAL IRON) TAB PO SCH ×2 (08:50→22:32)
[2017-12-10] MEDS: INSULIN DETEMIR 100 UNITS/ML VIAL SQ SCH (08:51)
[2017-12-10] MEDS: METOPROLOL SUCCINATE 50 MG EXTENDED RELEASE TAB PO SCH (08:51)
[2017-12-10] MEDS: MYCOPHENOLATE MOFETIL 500 MG TAB PO SCH ×2 (08:54→22:32)
[2017-12-10] MEDS: CHOLECALCIFEROL (VIT D3) 1000 UNIT TAB PO SCH (08:54)
[2017-12-10] MEDS: PARICALCITOL 1 MCG CAP PO SCH (08:55)
[2017-12-10] MEDS: TACROLIMUS 5 MG CAP PO SCH ×2 (08:55→22:31)
[2017-12-10 09:09] LABS: ALBUMIN 2.2 GM/DL (3.4-5.0); ALKALINE PHOSPHATASE 64 U/L (45-117); ALT (GPT) 18 U/L (12-78); AST (GOT) 21 U/L (15-37); BICARBONATE 26.5 MEQ/L (21.0-32.0); BLOOD UREA NITROGEN 27 MG/DL (7-18); CALCIUM 8.6 MG/DL (8.5-10.1); CHLORIDE 105 MEQ/L (98-107); CREATININE 3.03 MG/DL (0.60-1.30); GLOMERULAR FILTRATION RATE 26 ML/MIN (>89); GLUCOSE,RANDOM 96 MG/DL (74-106); KERATOCYTES OCC (NORMAL); SODIUM (NA) 142 MEQ/L (136-145); TOTAL BILIRUBIN ADULT 0.3 MG/DL (0.2-1.0); TOTAL PROTEIN 5.8 GM/DL (6.4-8.2)
[2017-12-10] MEDS: SODIUM CHLORIDE 0.9% FLUSH 10 ML FLUSH IV FLUSH SCH ×2 (10:21→22:32)
--- NOTE | 2017-12-10 14:34 | RADRPT ---
EXAM DATE: 12/09/2017 3:20 PM EDT AGE/SEX: 57 years / Male INDICATIONS: End-stage renal disease CLINICAL DATA: This is the patient's subsequent encounter. Patient reports that signs and symptom s have been present for greater than a year and indicates a pain score of not applicable . MEDICAL/SURGICAL HISTORY: COMPARISON: No prior exams available for comparison. IMAGE SERIES: ACCESS SITE: DEVICE(S): 23 cm Larson perm catheter . . PROCEDURE : 1. Fluoroscopically-guided venipuncture. 2. PermaCath placement. 3. Conscious sedation with continuous EKG and oximetry monitoring. The risks, benefits and alternatives to the procedure were explained and verbal and written consent w as obtained. The site was prepped in sterile fashion. Full sterile technique was used, including ca p, mask, sterile gloves and gown and a large sterile sheet. Hand hygiene and 2% chlorhexidine Betadi ne was utilized per protocol for cutaneous antisepsis with appropriate dry time for site. The skin a nd subcutaneous tissues were infiltrated with local anesthetic solution. Utilizing fluoroscopic guidance a dermatotomy was created over the prescribed vein. A micropuncture set was used to access the targeted vein and serial dilatation was performed to accept the prescribed length Larson catheter. A subcutaneous tunnel was created in a retrograde fashion the Larson cathet er was pulled through the tunnel. The catheter was flushed and assembled and locked with heparin. T he catheter was sutured in place. Conscious sedation was performed with the prescribed dosages and duration as above in the presence of an independent trained radiology nurse to assist in the monitoring of the patient. EKG and oximetry remained stable throughout the procedure. The patient tolerated the procedure well and there were n o complications. The patient was sent to post anesthesia recovery in stable condition. CONCLUSION: 1. Uncomplicated PermaCath placement as above. Electronically signed by: Jad Romero MD 12/10/2017 2:32 PM EDT
--- NOTE | 2017-12-10 15:30 | HHI.PR ---
Subjective Remarks Patient reported feeling sore in the neck by the line site no fever no cough Objective Vitals Vital Signs Date Time Temp Pulse Resp B/P (MAP) Pulse Ox O2 Delivery O2 Flow Rate FiO2 12/10/17 13:42 16 12/10/17 13:28 95 12/10/17 12:00 99.1 90 18 168/91 (116) 95 12/10/17 08:00 98.2 63 16 172/90 (117) 95 12/10/17 00:06 98.0 66 18 132/72 (92) 98 12/09/17 20:18 98.5 72 16 114/56 (75) 92 12/09/17 18:00 70 12/09/17 17:17 64 16 139/84 (102) 92 12/09/17 17:12 63 12/09/17 16:47 63 16 146/86 (106) 92 12/09/17 16:17 66 16 144/89 (107) 92 12/09/17 15:47 65 16 150/83 (105) 93 12/09/17 15:40 98.3 65 16 157/93 (114) 94 I/O 12/09/17 12/09/17 12/09/17 12/10/17 12/10/17 12/10/17 07:00 15:00 23:00 07:00 15:00 23:00 Intake Total 480 ml 780 ml Output Total 200 ml 1800 ml 400 ml 400 ml Balance -200 ml -1800 ml 80 ml 380 ml Intake Oral 480 ml 780 ml Output Urine Total 200 ml 300 ml 400 ml 400 ml Hemodialysis 1500 ml # Bowel Movements 1 Result Diagram: 12/10/17 0656 12/10/17 0656 Objective Remarks GENERAL: This is a well-nourished, well-developed patient, in no apparent distress. CARDIOVASCULAR: RRR, no gallops, or rubs. RESPIRATORY: Fair air entry bilaterally. No W, R, or R GASTROINTESTINAL: Abdomen soft, non-tender, nondistended. Positive bowel sounds MUSCULOSKELETAL: Extremities without clubbing, cyanosis, or edema. Pedal pulses appreciated NEUROLOGICAL: Awake and alert. Moves all extremity. Normal speech.no focal neurological deficit Lines: Patient have fistula in the left arm and cath in the right chest A/P Assessment and Plan 57-year-old male with history of diabetes mellitus, kidney transplant on immunosuppressants presenting with shortness of breath 12/10: Status post PermCath placement. Continue on hemodialysis appreciate nephrology follow-up. Continue monitoring CBC for infectious signs. Plan for outpatient dialysis. I discussed with spring encaser, discharge when the arrangement is complete Ordered PT OT A/P: Sepsis Resolved Community Acquired Pneumonia Immunocompromise Continued improvements, but not to baseline Follow clinically Continue Antibiotics Continue oxygen as needed Azithromycin Rocephin Chronic kidney disease End-stage renal disease Nephrology following Follow renal function Continue dialysis Elevated Troponin Appears to be a combination of inflammation from pneumonia and degree of renal disease (MEJIA). No further need for cardiac work up Diabetes mellitus type 2 Follow blood sugars Insulin sliding scale Diabetic diet Diarrhea Improving Flagyl discontinued C. Diff screen negative As needed Imodium Hypertension Continue baseline treatment Follow blood pressures Adjust treatments as needed metoprolol and Norvasc End-stage renal disease status post kidney transplant-restart tacrolimus Continue prednisone, mycophenolate. Continue renal medications Nephrology following Continue dialysis. Anemia Follow CBC DVT prophylaxis Heparin Angelia Jones MD Dec 10, 2017 15:30
[2017-12-10] MEDS: guaiFENesin/DEXTROMETHORPHAN 200 MG/20 MG/10 ML CUP PO PRN (16:51)
--- NOTE | 2017-12-10 18:35 | HHI.NPPN ---
Subjective History of Present Illness 57-year-old -Malian male with history of failing kidney transplant, he developed fever and shortness of breath and has facial swelling Review of Systems General Constitutional: Fatigue Respiratory Lungs: SOB Objective Data Data 12/10/17 12/11/17 19:00 07:00 Intake Total 820 ml Output Total 200 ml Balance 620 ml Intake Oral 820 ml Output Urine Total 200 ml # Voids 5 # Bowel Movements 5 Vital Signs Date Time Temp Pulse Resp B/P (MAP) Pulse Ox O2 Delivery O2 Flow Rate FiO2 12/10/17 17:42 94 21 12/10/17 16:00 98.5 71 16 163/99 (120) 94 12/10/17 13:42 16 12/10/17 13:28 95 12/10/17 12:00 99.1 90 18 168/91 (116) 95 12/10/17 08:00 98.2 63 16 172/90 (117) 95 12/10/17 00:06 98.0 66 18 132/72 (92) 98 12/09/17 20:18 98.5 72 16 114/56 (75) 92 -: 12/10/17 0656 12/10/17 0656 Physical Exam General Appearance: Well Developed, Well Nourished Neck Neck Exam: Neck Supple Pulmonary Resp Exam: Clear Bilaterally, Breath Sounds Equal Cardiology CV Exam: Regular, Normal Sinus Rhythm Gastrointestinal/Abdomen GI Exam: Soft, Non-Tender, Bowel Sounds Present Extremeties Extremities Exam: No Edema Neurologic Neuro Exam: Alert Assessment/Plan Problem List: (1) ESRD (end stage renal disease) ICD Codes: N18.6 - End stage renal disease Status: Acute Plan: Patient kidney transplant has failed and he has underlying chronic changes Consulted Dr. Sauceda for AV fistula placement who will fu as out patient, Permcath placed 12/09 HD next sat [facility] HD set up [facility] on [employer] 1 mcg (2) Acidosis, metabolic ICD Codes: E87.2 - Acidosis Plan: Due to kidney failure (3) Renal transplant recipient ICD Codes: Z94.0 - Kidney transplant status Status: Chronic Plan: Patient was maintained on Prograf, CellCept and prednisone (4) Hypertension ICD Codes: I10 - Essential (primary) hypertension Status: Acute Plan: Continue to monitor (5) PNA (pneumonia) ICD Codes: J18.9 - Pneumonia Status: Acute Plan: Started on Zithromax and ceftriaxone (6) DM (diabetes mellitus) ICD Codes: E11.9 - Type 2 diabetes mellitus without complications Status: Acute Plan: Monitor blood glucose Problem Qualifiers (1) PNA (pneumonia): Qualified Codes: J18.1 - Lobar pneumonia, unspecified organism Chito Pereira MD Dec 10, 2017 18:35
[2017-12-11 00:02] VITALS: BP 153/89; PULSE 71; RESP 18; TEMP 98.4; O2SAT 96
[2017-12-11] MEDS: HEPARIN SODIUM - SQ 10,000 UNITS/ML VIAL SQ SCH ×3 (06:00→21:25)
[2017-12-11 08:00] VITALS: BP 181/99; PULSE 70; RESP 18; TEMP 98.1; O2SAT 98
[2017-12-11] MEDS: INSULIN ASPART SUPPLEMENTAL SCALE SQ SCH ×4 (08:00→21:24)
[2017-12-11] MEDS: MYCOPHENOLATE MOFETIL 500 MG TAB PO SCH ×2 (09:00→21:24)
[2017-12-11] MEDS: INSULIN DETEMIR 100 UNITS/ML VIAL SQ SCH (09:00)
[2017-12-11] MEDS: FERROUS SULFATE 325 MG (65 MG ELEMENTAL IRON) TAB PO SCH ×2 (09:00→21:24)
[2017-12-11] MEDS: predniSONE 10 MG TAB PO SCH (09:01)
[2017-12-11] MEDS: SODIUM BICARBONATE 650 MG TAB PO SCH (09:01)
[2017-12-11] MEDS: CHOLECALCIFEROL (VIT D3) 400 UNIT TAB PO SCH (09:01)
[2017-12-11] MEDS: LEVOTHYROXINE SODIUM 25 MCG TAB PO SCH (09:01)
[2017-12-11] MEDS: PARICALCITOL 1 MCG CAP PO SCH (09:01)
[2017-12-11] MEDS: ATORVASTATIN 80 MG TAB PO SCH (09:01)
[2017-12-11] MEDS: METOPROLOL SUCCINATE 50 MG EXTENDED RELEASE TAB PO SCH (09:02)
[2017-12-11] MEDS: AZITHROMYCIN 250 MG TAB PO SCH (09:02)
[2017-12-11] MEDS: hydrALAZINE HCL 25 MG TAB PO SCH ×3 (09:02→18:00)
[2017-12-11] MEDS: guaiFENesin/DEXTROMETHORPHAN 200 MG/20 MG/10 ML CUP PO PRN (09:19)
[2017-12-11] MEDS: ACETAMINOPHEN 325 MG TAB PO PRN ×2 (09:19→21:24)
[2017-12-11] MEDS: TACROLIMUS 5 MG CAP PO SCH ×2 (09:19→21:24)
[2017-12-11] MEDS: CHOLECALCIFEROL (VIT D3) 1000 UNIT TAB PO SCH (09:20)
[2017-12-11] MEDS: MAGNESIUM OXIDE 400 MG TAB PO SCH (09:20)
[2017-12-11] MEDS: SODIUM CHLORIDE 0.9% FLUSH 10 ML FLUSH IV FLUSH SCH ×2 (09:21→21:20)
[2017-12-11] MEDS ORDERED: NOVONP2 SQ (11:14)
[2017-12-11] MEDS ORDERED: LEVA750T9 PO (11:23)
[2017-12-11] MEDS: INSULIN HUMAN NPH 1,000 UNITS/10 ML VIAL SQ SCH ×2 (12:00→17:00)
[2017-12-11 12:50] LABS: BICARBONATE 28.8 MEQ/L (21.0-32.0); CALCIUM 8.2 MG/DL (8.5-10.1); CREATININE 3.84 MG/DL (0.60-1.30)
[2017-12-11 12:55] VITALS: BP 131/73; PULSE 70; RESP 16; TEMP 98.2; O2SAT 95
[2017-12-11 15:03] VITALS: O2SAT 96
--- NOTE | 2017-12-11 15:17 | HHI.NPPN ---
Subjective History of Present Illness 57-year-old -Malaysian male with history of failing kidney transplant, he developed fever and shortness of breath and has facial swelling Interval History He was seen in the morning. Had no complaints, awaiting dialysis Review of Systems General Constitutional: Fatigue Respiratory Lungs: SOB Objective Data Data Vital Signs Date Time Temp Pulse Resp B/P (MAP) Pulse Ox O2 Delivery O2 Flow Rate FiO2 12/11/17 15:03 96 21 12/11/17 12:55 98.2 70 16 131/73 (92) 95 12/11/17 08:00 98.1 70 18 181/99 (126) 98 12/11/17 00:02 98.4 71 18 153/89 (110) 96 12/10/17 20:14 98.9 72 18 129/67 (87) 96 12/10/17 17:42 94 21 12/10/17 16:00 98.5 71 16 163/99 (120) 94 -: 12/10/17 0656 12/11/17 1142 Physical Exam General Appearance: Well Developed, Well Nourished Neck Neck Exam: Neck Supple Pulmonary Resp Exam: Clear Bilaterally, Breath Sounds Equal Cardiology CV Exam: Regular, Normal Sinus Rhythm Gastrointestinal/Abdomen GI Exam: Soft, Non-Tender, Bowel Sounds Present Extremeties Extremities Exam: No Edema Neurologic Neuro Exam: Alert Assessment/Plan Problem List: (1) ESRD (end stage renal disease) ICD Codes: N18.6 - End stage renal disease Status: Acute Plan: Patient kidney transplant has failed and he has underlying chronic changes Consulted Dr. Sauceda for AV fistula placement who will fu as out patient, Permcath placed 12/09 HD next sat [facility] HD set up [facility] on [employer] 1 mcg (2) Acidosis, metabolic ICD Codes: E87.2 - Acidosis Plan: Due to kidney failure (3) Renal transplant recipient ICD Codes: Z94.0 - Kidney transplant status Status: Chronic Plan: Patient was maintained on Prograf, CellCept and prednisone (4) Hypertension ICD Codes: I10 - Essential (primary) hypertension Status: Acute Plan: Continue to monitor (5) PNA (pneumonia) ICD Codes: J18.9 - Pneumonia Status: Acute Plan: Started on Zithromax and ceftriaxone (6) DM (diabetes mellitus) ICD Codes: E11.9 - Type 2 diabetes mellitus without complications Status: Acute Plan: Monitor blood glucose Problem Qualifiers (1) PNA (pneumonia): Qualified Codes: J18.1 - Lobar pneumonia, unspecified organism Santi Stuart MD Dec 11, 2017 15:17
--- NOTE | 2017-12-11 15:52 | HHI.PR ---
Subjective Remarks Not very pleasant patient Denied complaint Seems to be stable medically for discharge Objective Vitals Vital Signs Date Time Temp Pulse Resp B/P (MAP) Pulse Ox O2 Delivery O2 Flow Rate FiO2 12/11/17 15:03 96 21 12/11/17 12:55 98.2 70 16 131/73 (92) 95 12/11/17 08:00 98.1 70 18 181/99 (126) 98 12/11/17 00:02 98.4 71 18 153/89 (110) 96 12/10/17 20:14 98.9 72 18 129/67 (87) 96 12/10/17 17:42 94 21 12/10/17 16:00 98.5 71 16 163/99 (120) 94 I/O 12/10/17 12/10/17 12/10/17 12/11/17 12/11/17 12/11/17 07:00 15:00 23:00 07:00 15:00 23:00 Intake Total 780 ml 820 ml 680 ml Output Total 400 ml 200 ml 780 ml Balance 380 ml 620 ml -100 ml Intake Oral 780 ml 820 ml 680 ml Output Urine Total 400 ml 200 ml 780 ml # Voids 5 # Bowel Movements 5 Result Diagram: 12/10/17 0656 12/11/17 1142 Objective Remarks GENERAL: This is a well-nourished, well-developed patient, in no apparent distress. CARDIOVASCULAR: RRR, no gallops, or rubs. RESPIRATORY: Fair air entry bilaterally. No W, R, or R GASTROINTESTINAL: Abdomen soft, non-tender, nondistended. Positive bowel sounds MUSCULOSKELETAL: Extremities without clubbing, cyanosis, or edema. Pedal pulses appreciated NEUROLOGICAL: Awake and alert. Moves all extremity. Normal speech.no focal neurological deficit Lines: Patient have fistula in the left arm and cath in the right chest A/P Assessment and Plan 57-year-old male with history of diabetes mellitus, kidney transplant on immunosuppressants presenting with shortness of breath 12/10: Status post PermCath placement. Continue on hemodialysis appreciate nephrology follow-up. Continue monitoring CBC for infectious signs. Plan for outpatient dialysis. I discussed with insurance case manager, discharge when the arrangement is complete Ordered PT OT 12/11: Sputum culture negative will DC Zithromax, blood culture on 12/05-, diabetes mellitus I will add preprandial NovoLog 2 units and monitor Accu-Chek, otherwise patient can be discharged A/P: Sepsis Resolved Community Acquired Pneumonia Immunocompromise Continued improvements, but not to baseline Follow clinically Continue Antibiotics Continue oxygen as needed Azithromycin Rocephin Chronic kidney disease End-stage renal disease Nephrology following Follow renal function Continue dialysis Elevated Troponin Appears to be a combination of inflammation from pneumonia and degree of renal disease (MEJIA). No further need for cardiac work up Diabetes mellitus type 2 Follow blood sugars Insulin sliding scale Diabetic diet Diarrhea Improving Flagyl discontinued C. Diff screen negative As needed Imodium Hypertension Continue baseline treatment Follow blood pressures Adjust treatments as needed metoprolol and Norvasc End-stage renal disease status post kidney transplant-restart tacrolimus Continue prednisone, mycophenolate. Continue renal medications Nephrology following Continue dialysis. Anemia Follow CBC DVT prophylaxis Heparin Angelia Jones MD Dec 11, 2017 15:52
[2017-12-11] MEDS: EPOETIN ALFA 10,000 UNITS/ML VIAL IV PUSH PRN (17:40)
[2017-12-11] MEDS: GENTAMICIN SULFATE 20 MG/2 ML VIAL OTHER PRN (17:40)
[2017-12-11] MEDS: HEPARIN SODIUM - IV 10,000 UNITS/10 ML VIAL PRN (17:40)
[2017-12-11 21:30] VITALS: BP 145/96; PULSE 70; RESP 18; TEMP 97.8; O2SAT 96
[2017-12-12] VITALS: BP 123/73; PULSE 68; RESP 18; TEMP 98.9; O2SAT 96
[2017-12-12] MEDS: HEPARIN SODIUM - SQ 10,000 UNITS/ML VIAL SQ SCH ×3 (06:00→22:00)
[2017-12-12 08:00] VITALS: BP 153/89; PULSE 62; RESP 20; TEMP 98.2; O2SAT 96
[2017-12-12] MEDS: INSULIN HUMAN NPH 1,000 UNITS/10 ML VIAL SQ SCH ×3 (08:00→16:38)
[2017-12-12] MEDS: TACROLIMUS 5 MG CAP PO SCH ×2 (09:00→22:05)
[2017-12-12] MEDS: METOPROLOL SUCCINATE 50 MG EXTENDED RELEASE TAB PO SCH (09:07)
[2017-12-12] MEDS: hydrALAZINE HCL 25 MG TAB PO SCH ×3 (09:07→17:09)
[2017-12-12] MEDS: FERROUS SULFATE 325 MG (65 MG ELEMENTAL IRON) TAB PO SCH ×2 (09:07→22:05)
[2017-12-12] MEDS: MYCOPHENOLATE MOFETIL 500 MG TAB PO SCH ×2 (09:08→22:05)
[2017-12-12] MEDS: CHOLECALCIFEROL (VIT D3) 1000 UNIT TAB PO SCH (09:08)
[2017-12-12] MEDS: MAGNESIUM OXIDE 400 MG TAB PO SCH (09:08)
[2017-12-12] MEDS: predniSONE 10 MG TAB PO SCH (09:08)
[2017-12-12] MEDS: CHOLECALCIFEROL (VIT D3) 400 UNIT TAB PO SCH (09:08)
[2017-12-12] MEDS: PARICALCITOL 1 MCG CAP PO SCH (09:08)
[2017-12-12] MEDS: SODIUM BICARBONATE 650 MG TAB PO SCH (09:08)
[2017-12-12] MEDS: LEVOTHYROXINE SODIUM 25 MCG TAB PO SCH (09:08)
[2017-12-12] MEDS: INSULIN DETEMIR 100 UNITS/ML VIAL SQ SCH (09:12)
[2017-12-12] MEDS: INSULIN ASPART SUPPLEMENTAL SCALE SQ SCH ×5 (09:13→22:09)
[2017-12-12] MEDS: SODIUM CHLORIDE 0.9% FLUSH 10 ML FLUSH IV FLUSH SCH ×2 (09:14→22:21)
--- NOTE | 2017-12-12 10:11 | HHI.NPPN ---
Subjective History of Present Illness 57-year-old -Icelandic male with history of failing kidney transplant, he developed fever and shortness of breath and has facial swelling Interval History He is doing well, had dialysis yesterday. No specific complaints. Awaiting discharge. Review of Systems General Constitutional: Fatigue Respiratory Lungs: SOB Objective Data Data Vital Signs Date Time Temp Pulse Resp B/P (MAP) Pulse Ox O2 Delivery O2 Flow Rate FiO2 12/12/17 08:00 98.2 62 20 153/89 (110) 96 12/12/17 00:00 98.9 68 18 123/73 (90) 96 12/11/17 21:35 21 12/11/17 21:30 97.8 70 18 145/96 (112) 96 12/11/17 15:03 96 21 12/11/17 12:55 98.2 70 16 131/73 (92) 95 -: 12/10/17 0656 12/11/17 1142 Physical Exam General Appearance: Well Developed, Well Nourished Neck Neck Exam: Neck Supple Pulmonary Resp Exam: Clear Bilaterally, Breath Sounds Equal Cardiology CV Exam: Regular, Normal Sinus Rhythm Gastrointestinal/Abdomen GI Exam: Soft, Non-Tender, Bowel Sounds Present Extremeties Extremities Exam: No Edema Neurologic Neuro Exam: Alert Assessment/Plan Problem List: (1) ESRD (end stage renal disease) ICD Codes: N18.6 - End stage renal disease Status: Acute Plan: Patient kidney transplant has failed and he has underlying chronic changes Consulted Dr. Sauceda for AV fistula placement who will fu as out patient, Permcath placed 12/09 HD to be continued TTS. [facility] HD set up [facility] on [employer] 1 mcg (2) Acidosis, metabolic ICD Codes: E87.2 - Acidosis Plan: Due to kidney failure (3) Renal transplant recipient ICD Codes: Z94.0 - Kidney transplant status Status: Chronic Plan: Patient was maintained on Prograf, CellCept and prednisone (4) Hypertension ICD Codes: I10 - Essential (primary) hypertension Status: Acute Plan: Continue to monitor (5) PNA (pneumonia) ICD Codes: J18.9 - Pneumonia Status: Acute Plan: Started on Zithromax and ceftriaxone (6) DM (diabetes mellitus) ICD Codes: E11.9 - Type 2 diabetes mellitus without complications Status: Acute Plan: Monitor blood glucose Problem Qualifiers (1) PNA (pneumonia): Qualified Codes: J18.1 - Lobar pneumonia, unspecified organism Santi Stuart MD Dec 12, 2017 10:11
[2017-12-12 11:27] VITALS: O2SAT 93
[2017-12-12 12:00] VITALS: BP 139/84; PULSE 81; RESP 18; TEMP 97.8; O2SAT 96
[2017-12-12 16:00] VITALS: BP 131/71; PULSE 66; RESP 17; TEMP 99.3; O2SAT 93
--- NOTE | 2017-12-12 16:11 | HHI.PR ---
Subjective Remarks Patient still in-house due to awaiting chair bed in hemodialysis I discussed with him and with the nurse his insulin regimen he does not like preprandial insulin and he likes to get higher sliding scale, I explained to him will need to get his blood glucose in the range even around meals, I will make Accu-Chek every 4 hours and will continue with preprandial insulin and we will adjust basal insulin Patient still on standby for discharge once hemodialysis chair is available Objective Vitals Vital Signs Date Time Temp Pulse Resp B/P (MAP) Pulse Ox O2 Delivery O2 Flow Rate FiO2 12/12/17 12:00 97.8 81 18 139/84 (102) 96 12/12/17 11:27 93 21 12/12/17 08:00 98.2 62 20 153/89 (110) 96 12/12/17 00:00 98.9 68 18 123/73 (90) 96 12/11/17 21:35 21 12/11/17 21:30 97.8 70 18 145/96 (112) 96 I/O 12/11/17 12/11/17 12/11/17 12/12/17 12/12/17 12/12/17 07:00 15:00 23:00 07:00 15:00 23:00 Intake Total 680 ml 380 ml Output Total 780 ml 1600 ml 200 ml Balance -100 ml -1600 ml 180 ml Intake Oral 680 ml 380 ml Output Urine Total 780 ml 200 ml 200 ml Hemodialysis 1400 ml Result Diagram: 12/10/17 0656 12/11/17 1142 Objective Remarks GENERAL: This is a well-nourished, well-developed patient, in no apparent distress. CARDIOVASCULAR: RRR, no gallops, or rubs. RESPIRATORY: Fair air entry bilaterally. No W, R, or R GASTROINTESTINAL: Abdomen soft, non-tender, nondistended. Positive bowel sounds MUSCULOSKELETAL: Extremities without clubbing, cyanosis, or edema. Pedal pulses appreciated NEUROLOGICAL: Awake and alert. Moves all extremity. Normal speech.no focal neurological deficit Lines: Patient have fistula in the left arm and cath in the right chest A/P Assessment and Plan 57-year-old male with history of diabetes mellitus, kidney transplant on immunosuppressants presenting with shortness of breath 12/10: Status post PermCath placement. Continue on hemodialysis appreciate nephrology follow-up. Continue monitoring CBC for infectious signs. Plan for outpatient dialysis. I discussed with showcase trimmer, discharge when the arrangement is complete Ordered PT OT 12/11: Sputum culture negative will DC Zithromax, blood culture on 12/05-, diabetes mellitus I will add preprandial NovoLog 2 units and monitor Accu-Chek, otherwise patient can be discharged 12/12:I discussed with him and with the nurse his insulin regimen he does not like preprandial insulin and he likes to get higher sliding scale, I explained to him will need to get his blood glucose in the range even around meals, I will make Accu-Chek every 4 hours and will continue with preprandial insulin and we will adjust basal insulin Patient still on standby for discharge once hemodialysis chair is available A/P: Sepsis Resolved Community Acquired Pneumonia Immunocompromise Continued improvements, but not to baseline Follow clinically Continue Antibiotics Continue oxygen as needed Azithromycin Rocephin Chronic kidney disease End-stage renal disease Nephrology following Follow renal function Continue dialysis Elevated Troponin Appears to be a combination of inflammation from pneumonia and degree of renal disease (MEJIA). No further need for cardiac work up Diabetes mellitus type 2 Follow blood sugars Insulin sliding scale Diabetic diet Diarrhea Improving Flagyl discontinued C. Diff screen negative As needed Imodium Hypertension Continue baseline treatment Follow blood pressures Adjust treatments as needed metoprolol and Norvasc End-stage renal disease status post kidney transplant-restart tacrolimus Continue prednisone, mycophenolate. Continue renal medications Nephrology following Continue dialysis. Anemia Follow CBC DVT prophylaxis Heparin Discharge Planning Once care for hemodialysis outpatient center is available Angelai Jones MD Dec 12, 2017 16:11
[2017-12-12 20:00] VITALS: BP 148/88; PULSE 71; RESP 18; TEMP 98.6; O2SAT 95
[2017-12-12] MEDS: ACETAMINOPHEN 325 MG TAB PO PRN (22:10)
[2017-12-13] VITALS: BP 155/87; PULSE 67; RESP 16; TEMP 98.1; O2SAT 96
[2017-12-13] MEDS: HEPARIN SODIUM - SQ 10,000 UNITS/ML VIAL SQ SCH (06:00)
[2017-12-13 08:00] VITALS: BP 167/98; PULSE 64; RESP 20; TEMP 98.1; O2SAT 94
[2017-12-13] MEDS: INSULIN HUMAN NPH 1,000 UNITS/10 ML VIAL SQ SCH (08:00)
[2017-12-13] MEDS: CHOLECALCIFEROL (VIT D3) 400 UNIT TAB PO SCH (08:35)
[2017-12-13] MEDS: LEVOTHYROXINE SODIUM 25 MCG TAB PO SCH (08:35)
[2017-12-13] MEDS: METOPROLOL SUCCINATE 50 MG EXTENDED RELEASE TAB PO SCH (08:35)
[2017-12-13] MEDS: CHOLECALCIFEROL (VIT D3) 1000 UNIT TAB PO SCH (08:35)
[2017-12-13] MEDS: SODIUM BICARBONATE 650 MG TAB PO SCH (08:35)
[2017-12-13] MEDS: MAGNESIUM OXIDE 400 MG TAB PO SCH (08:35)
[2017-12-13] MEDS: predniSONE 10 MG TAB PO SCH (08:35)
[2017-12-13] MEDS: MYCOPHENOLATE MOFETIL 500 MG TAB PO SCH (08:35)
[2017-12-13] MEDS: FERROUS SULFATE 325 MG (65 MG ELEMENTAL IRON) TAB PO SCH (08:35)
[2017-12-13] MEDS: PARICALCITOL 1 MCG CAP PO SCH (08:35)
[2017-12-13] MEDS: hydrALAZINE HCL 25 MG TAB PO SCH (08:35)
[2017-12-13] MEDS: ATORVASTATIN 80 MG TAB PO SCH (08:35)
[2017-12-13] MEDS: TACROLIMUS 5 MG CAP PO SCH (08:36)
[2017-12-13] MEDS: INSULIN DETEMIR 100 UNITS/ML VIAL SQ SCH (08:39)
[2017-12-13] MEDS: SODIUM CHLORIDE 0.9% FLUSH 10 ML FLUSH IV FLUSH SCH (08:39)
[2017-12-13] MEDS: INSULIN ASPART SUPPLEMENTAL SCALE SQ SCH (08:39)
[2017-12-13 09:03] VITALS: O2SAT 94
== END 2017-12-13 11:50 | disposition home or self-care (01) | DRG 871 ==
LOC: NEPE 11:27 → NEDA 14:37 → HCIS 19:25 → N07B 12-09 18:33
PROVIDERS: ADMIT Hospitalist; ATTEND Hospitalist
PROC: 02HV33Z Insertion of Infusion Device into Superior Vena Cava, Percutaneous Approach (ICD-10-PCS; principal; 2017-12-06)
PROC: B518ZZA Fluoroscopy of Superior Vena Cava, Guidance (ICD-10-PCS; 2017-12-06)
PROC: 5A1D70Z Performance of Urinary Filtration, Intermittent, Less than 6 Hours Per Day (ICD-10-PCS; 2017-12-06)
PROC: 0JH63XZ Insertion of Tunneled Vascular Access Device into Chest Subcutaneous Tissue and Fascia, Percutaneous Approach (ICD-10-PCS; 2017-12-09)
PROC: 05HM33Z Insertion of Infusion Device into Right Internal Jugular Vein, Percutaneous Approach (ICD-10-PCS; 2017-12-09)
PROC: B513ZZA Fluoroscopy of Right Jugular Veins, Guidance (ICD-10-PCS; 2017-12-09)
DX: A41.9 Sepsis, unspecified organism (principal); J18.9 Pneumonia, unspecified organism; T86.11 Kidney transplant rejection; N18.6 End stage renal disease; E87.2 Acidosis; I12.0 Hypertensive chronic kidney disease with stage 5 chronic kidney disease or end stage renal disease; T82.898A Other specified complication of vascular prosthetic devices, implants and grafts, initial encounter; E11.22 Type 2 diabetes mellitus with diabetic chronic kidney disease; D64.9 Anemia, unspecified; Z88.8 Allergy status to other drugs, medicaments and biological substances; Z91.040 Latex allergy status; Z79.4 Long term (current) use of insulin; Z79.52 Long term (current) use of systemic steroids; Z79.899 Other long term (current) drug therapy; Z99.2 Dependence on renal dialysis
CPT/HCPCS: 36556; 36558; 71045; 76937; 77001; 80048; 80053; 80074; 80197; 81001; 82306; 82550; 82552; 82948; 83540; 83550; 83605; 83735; 83880; 83970; 84100; 84484; 85007; 85025; 85027; 85610; 85730; 87040; 87070; 87205; 87425; 87449; 87493; 87506; 87804; 90935; 93005; 94640; 94664; 96360; 96361; 96374; 96375; 99152; 99153; C1750; C1752; C1769; J0456; J0696; J1580; J1644; J1815; J2060; J2250; J3010; J7030; J7050; J7507; J7512; J7517; Q4081

== ENCOUNTER 2018-03-07 06:44 | Observation (INO) ==
--- NOTE | 2018-03-07 07:30 | XR ---
EXAM DATE: 03/07/2018 7:25 AM EDT AGE/SEX: 57 years / Male INDICATIONS: Evaluate for pneumonia, pneumothorax, or any communicable disease. Pre op fistula surge ry. CLINICAL DATA: This is the patient's initial encounter. Patient reports that signs and symptoms have been present for 1 day and indicates a pain score of 0/10. MEDICAL/SURGICAL HISTORY: . Renal failure, chronic. Gastroesophageal reflux disease. . AV fist tristan Inguinal hernia repair. . AV fistula Inguinal hernia repair. Port for dialysis. COMPARISON: C, CHEST 1V SINGLE AP, 02/22/2018. . FINDINGS: Right-sided dialysis catheter has been removed and a new left internal jugular dialysis catheter has been inserted. There is no evidence of pneumothorax. There is no significant airspace disease or ree estion. Heart remains moderately enlarged. CONCLUSION: No evidence of pneumothorax following replacement of tunneled dialysis catheter. No evidence of significant congestion or acute airspace disease Electronically signed by: Hal Sullivan MD 03/07/2018 7:29 AM EDT
[2018-03-07] MEDS ORDERED: Metoprolol Tartrate 25 MG Tablet PO ONE (07:34)
[2018-03-07] MEDS ORDERED: Chlorhexidine Gluconate 2% 1 Pack (2 Cloths) TOPICAL ONE (07:34)
[2018-03-07] MEDS ORDERED: Sodium Chlor 0.9% Inj 500 ML IV.SIG SCH (08:00)
[2018-03-07] MEDS ORDERED: Famotidine PF Inj 20 MG/2 ML Vial ONE (08:08)
[2018-03-07 08:18] LABS: Baso # (Auto) 0.1 th/mm3 (0.0-0.2); Baso % (Auto) 0.9 % (0.0-2.0); Eos # (Auto) 0.1 th/mm3 (0.0-0.4); Eos % (Auto) 1.6 % (0.0-4.0); Hemoglobin 9.4 gm/dL (13.0-17.0); Lymph # (Auto) 1.1 th/mm3 (1.0-4.8); Lymph % (Auto) 14.3 % (9.0-44.0); Mean Corpuscular HGB Conc 31.4 % (32.0-36.0); Mean Corpuscular Hemoglobin 25.7 pg (27.0-34.0); Mean Corpuscular Volume 81.9 fL (80.0-100.0); Mean Platelet Volume 7.6 fL (7.0-11.0); Mono # (Auto) 0.8 th/mm3 (0.0-0.9); Mono % (Auto) 10.2 % (0.0-8.0); Neut # (Auto) 5.6 th/mm3 (1.8-7.7); Platelet Count 375 th/mm3 (150-450); Red Blood Count 3.66 mil/mm3 (4.50-5.90); Red Cell Distribution Width 20.1 % (11.6-17.2); White Blood Count 7.7 th/mm3 (4.0-11.0)
[2018-03-07] MEDS ORDERED: Heparin/NS PF Inj 500 ML ONE (08:20)
[2018-03-07] MEDS ORDERED: Protamine Sulfate Inj 50 MG/5 ML Vial ONE (08:20)
[2018-03-07] MEDS ORDERED: Heparin 10,000 UNITS/10 ML Vial (for IV use) ONE (08:20)
[2018-03-07] MEDS ORDERED: Thrombin Topical 20,000 UNIT Spray Kit TOPICAL ONE (08:20)
[2018-03-07] MEDS ORDERED: Bupivacaine PF 0.5% Inj 30 ML Vial ONE (08:26)
[2018-03-07 08:30] LABS: Activated Partial Thrombo Time 27.3 sec (24.3-30.1); INR 1.1 Ratio; Prothrombin Time 11.4 sec (9.8-11.6)
[2018-03-07 08:35] LABS: Bilirubin,Urine Negative (Negative); Clarity,Urine Clear (Clear); Color,Urine Yellow (Yellw/Straw); Glucose,Urine (UA) 50 mg/dL (Negative); Leukocyte Esterase,Urine Negative (Negative); Nitrite,Urine Negative (Negative); Specific Gravity,Urine 1.016 (1.002-1.035)
[2018-03-07 08:38] LABS: Calcium 7.8 mg/dL (8.5-10.1); Carbon Dioxide 24.1 meq/L (21.0-32.0); Potassium 4.1 meq/L (3.5-5.1)
--- NOTE | 2018-03-07 08:52 | P.HPVS ---
History of Present Illness Chief Complaint: ESRD ,need for HD access History of Present Illness: 57 yo male with ESRD, s/p CRTx that has failed. Getting HD via L chest catheter. No recent problems that would preclude OR. - Inpatient Certification If this patient has been admitted as an Inpatient: I certify that the inpatient services were ordered in accordance with Medicare regulations governing the order. This includes certification that hospital inpatient services are reasonable and necessary and in the case of services not specified as inpatient-only under 42 CFR 419.22(n), that they are appropriately provided as inpatient services in accordance to with the 2-midnight benchmark under 43 CFR 412.3(e) Estimated Total Length of Stay (Days): 1 Plans for Post Hospital Care: Home Review of Systems Constitutional: Denies chills, Denies fatigue Cardiovascular: Denies chest pain PMFSH - History History Provided By: Patient - Medical History Medical History: Medical History (Last Reviewed 03/07/18 @ 08:50 by Alli Sauceda MD) Hyperlipidemia (Acute) Type 2 diabetes mellitus (Chronic) Hypertension (Chronic) AV fistula (Chronic) GERD (gastroesophageal reflux disease) (Chronic) Kidney failure (Chronic) Vascular dialysis catheter in place (Chronic) CHF (congestive heart failure) Dialysis patient History of alcohol use History of illicit drug use Hx of transfusion Obstructive sleep apnea on CPAP Smoking hx TIA (transient ischemic attack) - Surgical History Surgical History: Surgical History (Last Reviewed 03/07/18 @ 08:50 by Alli Sauceda MD) Kidney transplant recipient H/O left knee surgery H/O hernia repair (Resolved) H/O inguinal hernia repair (Resolved) S/P ACL repair (Resolved) - Tobacco History Second Hand Smoke Exposure: Yes Tobacco Use In Past 30 Days: No Smoking Status: Former smoker - Alcohol History How Often Do You Have a Drink Containing Alcohol: Never - Substance Use History Substance History: Past History - Travel History Recent Travel in the [place] Within the Last 8 Weeks: No Recent Travel Out of the Country Within the Last 8 Weeks: No Medications and Allergies Active Medications: Active Medications Lactated Ringer's (Lr 1000 Ml Inj) 1,000 mls @ 30 mls/hr IV.SIG .Q24H [facility]EL[facility]E Stop: 03/08/18 07:44 Allergies Allergy/AdvReac Type Severity Reaction Status Date / Time banana Allergy Severe HIVES Verified 03/07/18 07:45 beet Allergy Severe HIVES Verified 03/07/18 07:45 latex Allergy Severe Hives and Verified 03/07/18 07:45 rash peas Allergy Severe HIVES Verified 03/07/18 07:45 tomato Allergy Severe Hives Verified 03/07/18 07:45 Home Medications Medication Instructions Recorded Confirmed Type amlodipine 10 mg PO DAILY 01/12/18 03/07/18 History atorvastatin [Lipitor] 10 mg PO DAILY 01/12/18 03/07/18 History hydralazine 10 mg PO TID 01/12/18 03/07/18 History insulin aspart U-100 [Novolog 4 sliding scale dose SUB-Q DAILY 01/12/18 History U-100 Insulin aspart] PRN insulin glargine [Lantus U-100 20 unit SUB-Q DAILY 01/12/18 03/07/18 History Insulin] levothyroxine 50 mcg PO DAILY 01/12/18 03/07/18 History magnesium gluconate 500 mg PO DAILY 01/12/18 03/07/18 History metoprolol succinate 100 mg PO DAILY 01/12/18 03/07/18 History pantoprazole [Protonix] 40 mg PO DAILY 01/12/18 03/07/18 History prednisone 5 mg PO DAILY 01/12/18 03/07/18 History sodium bicarbonate 325 mg PO DAILY 01/12/18 03/07/18 History tacrolimus 15 mg PO Q12H 01/12/18 03/07/18 History Physical Exam Vital Signs / I&O: Vital Signs 03/07/18 07:40 Temperature 97.2 F L Pulse Rate 68 Respiratory Rate 18 Blood Pressure 162/89 H Pulse Oximetry 96 Intake & Output 03/06/18 03/07/18 03/07/18 18:59 06:59 18:59 Weight 75.3 kg Neuro: alert, oriented HEENT: NC/AT Neck: no JVD Heart: reg rate Lungs: clear Vascular: L UE palpable pulses, mild edema Extremities: healed L UE surgical wounds Laboratory Results - last 24 hr 03/07/18 03/07/18 03/07/18 07:35 08:00 08:00 WBC RBC Hgb Hct MCV MCH MCHC RDW Plt Count MPV Neut % (Auto) Lymph % (Auto) York % (Auto) Eos % (Auto) Baso % (Auto) Neut # (Auto) Lymph # (Auto) York # (Auto) Eos # (Auto) Baso # (Auto) WBC Differential Differential Comment PT INR APTT Sodium 142 Potassium 4.1 Chloride 107 Carbon Dioxide 24.1 Anion Gap 11 BUN 53 H Creatinine 5.13 H Estimated GFR 14 L POC Glucose Random Glucose 135 H Calcium 7.8 L Urine Color Yellow Urine Clarity Clear Urine pH 6.0 Ur Specific Clark 1.016 Urine Protein 500 or greater Urine Glucose (UA) 50 Urine Ketones Negative Urine Occult Blood Negative Urine Nitrate Negative Urine Bilirubin Negative Urine Urobilinogen Less than 2 Ur Leukocyte Esterase Negative Blood Type O Positive 03/07/18 03/07/18 03/07/18 08:00 08:00 08:04 WBC 7.7 RBC 3.66 L Hgb 9.4 L Hct 30.0 L MCV 81.9 MCH 25.7 L MCHC 31.4 L RDW 20.1 H Plt Count 375 D MPV 7.6 Neut % (Auto) 73.0 H Lymph % (Auto) 14.3 York % (Auto) 10.2 H Eos % (Auto) 1.6 Baso % (Auto) 0.9 Neut # (Auto) 5.6 Lymph # (Auto) 1.1 York # (Auto) 0.8 Eos # (Auto) 0.1 Baso # (Auto) 0.1 WBC Differential . Differential Comment Auto diff final PT 11.4 INR 1.1 APTT 27.3 Sodium Potassium Chloride Carbon Dioxide Anion Gap BUN Creatinine Estimated GFR POC Glucose 117 H Random Glucose Calcium Urine Color Urine Clarity Urine pH Ur Specific Clark Urine Protein Urine Glucose (UA) Urine Ketones Urine Occult Blood Urine Nitrate Urine Bilirubin Urine Urobilinogen Ur Leukocyte Esterase Blood Type Impressions Chest X-Ray 03/07/18 00:00 CONCLUSION: No evidence of pneumothorax following replacement of tunneled dialysis catheter. No evidence of significant congestion or acute airspace disease Caprini VTE Risk Assessment Caprini VTE Risk Assessment: No/Low Risk (score <= 1) (intraop heparin) Caprini Risk Assessment Model: Point Value = 1 Point Value = 2 Point Value = 3 Point Value = 5 Age 41-60 Minor surgery BMI > 25 kg/m2 Swollen legs Varicose veins or History of unexplained or recurrent spontaneous Oral contraceptives or hormone replacement Sepsis (< 1 month) Serious lung disease, including pneumonia (< 1 month) Abnormal pulmonary function Acute myocardial infarction Congestive heart failure (< 1 month) History of inflammatory bowel disease Medical patient at bed rest Age 61-74 Arthroscopic surgery Major open surgery (> 45 min) Laparoscopic surgery (> 45 min) Malignancy Confined to bed (> 72 hours) Immobilizing plaster cast Central venous access Age >= 75 History of VTE Family history of VTE Factor V Leiden Prothrombin [id number] Lupus anticoagulant Anticardiolipin antibodies Elevated serum homocysteine Heparin-induced thrombocytopenia Other congenital or acquired thrombophilia Stroke (< 1 month) Elective arthroplasty Hip, pelvis, or leg fracture Acute spinal cord injury (< 1 month) Prophylaxis Regimen: Total Risk Factor Score Risk Level Prophylaxis Regimen 0-1 Low Early ambulation 2 Moderate Order ONE of the following: *Sequential Compression Device (SCD) *Heparin 5000 units SQ BID 3-4 Higher Order ONE of the following medications: *Heparin 5000 units SQ TID *Enoxaparin/Lovenox 40 mg SQ daily (WT < 150 kg, CrCl > 30 mL/min) *Enoxaparin/Lovenox 30 mg SQ daily (WT < 150 kg, CrCl > 10-29 mL/min) *Enoxaparin/Lovenox 30 mg SQ BID (WT < 150 kg, CrCl > 30 mL/min) AND/OR *Sequential Compression Device (SCD) 5 or more Highest Order ONE of the following medications: *Heparin 5000 units SQ TID (Preferred with Epidurals) *Enoxaparin/Lovenox 40 mg SQ daily (WT < 150 kg, CrCl > 30 mL/min) *Enoxaparin/Lovenox 30 mg SQ daily (WT < 150 kg, CrCl > 10-29 mL/min) *Enoxaparin/Lovenox 30 mg SQ BID (WT < 150 kg, CrCl > 30 mL/min) AND *Sequential Compression Device (SCD) Assessment and Plan - Assessment (1) ESRD (end stage renal disease) on dialysis Code(s): N18.6 - End stage renal disease; Z99.2 - Dependence on renal dialysis Status: Acute - Plan L UE access (likely with PTFE) OR site marked. to OR
[2018-03-07] MEDS ORDERED: Lidocaine PF 1% Inj 5 ML Syringe INFILTRATN ONE (09:00)
[2018-03-07] MEDS ORDERED: Bupivacaine PF 0.5% Inj 30 ML Vial INFILTRATN ONE ×2 (10:06→10:15)
[2018-03-07] MEDS ORDERED: Bisacodyl 10 MG Supp RECTAL PRN (10:25)
--- NOTE | 2018-03-07 10:25 | P.OP ---
Date of procedure: 03/07/18 Procedure: LEFT Upper extremity AVG (6mm PTFE) Implants: 6mm PTFE LUE Anesthesia: GETA Surgeon: Alli Sauceda MD Barrel Assembler: Alli Reed Estimated blood loss (mL): 50 IV fluids (mL): 450 Pathology: none sent Operation and Findings: aneurysmal artery + thrill and + radial Doppler signal after AVG
[2018-03-07] MEDS ORDERED: Dextrose 50% in Water 50 ML Vial IV.PUSH PRN (10:31)
[2018-03-07] MEDS ORDERED: *Ondansetron Inj 4 MG/2 ML Vial PERIprocedural Use ONLY ONE (10:57)
[2018-03-07] MEDS ORDERED: fentaNYL Citrate Inj 100 MCG/2 ML Ampul ONE (11:02)
[2018-03-07] MEDS: Insulin NovoLOG Aspart Correctional Sugar Inj SQ SCH ×3 (11:10→20:32)
[2018-03-07] MEDS ORDERED: *morphine SULFATE 10 MG/ML PERIprocedure ONLY ONE (11:12)
--- NOTE | 2018-03-07 11:39 | MP ---
cc: Alli Sauceda MD DATE OF OPERATION: 03/07/2018 PREOPERATIVE DIAGNOSIS: Endstage renal disease, need for dialysis access. POSTOPERATIVE DIAGNOSIS: Endstage renal disease, need for dialysis access. PROCEDURE PERFORMED: Left upper extremity brachial artery to axillary vein arteriovenous graft. ATTENDING SURGEON: Alli Sauceda MD. [employer] ATTENDANT SURGEON: Alli Reed ANESTHESIA: General. INDICATIONS FOR PROCEDURE: Mr. Gabriel is a 57-year-old gentleman with end-stage renal disease and a failed kidney transplant. He was taken to the operating room for left upper extremity access. DESCRIPTION OF PROCEDURE: Informed consent was obtained from the patient. He was taken to the operating room and placed supine on the operating table. An appropriate timeout was taken to ensure the patient's identity, operative site, and planned procedure. The administration of 1 gram of vancomycin was initiated prior to skin incision and will be discontinued after single preoperative dose. Vancomycin was chosen because of the patient's end-stage renal disease. Everyone in the room agreed with timeout and we proceeded. His left arm was prepped and draped and a #10 blade was used to incise the distal antecubitum, carried down through subcutaneous tissue with electrocautery. The brachial artery was identified. It was noted to be somewhat aneurysmal. It was dissected free for several centimeters. A separate incision was made transversely in the axilla, carried down through subcutaneous tissue with electrocautery. The axillary vein was identified and noted to be quite large. A tunnel was created between these 2 and a 6 mm PTFE graft was passed through the tunnel, taking caution not to twist it. The patient was systemically heparinized with 3000 units of IV heparin. Proximal and distal control of the brachial artery were obtained with profunda clamps and a longitudinal arteriotomy was made with an 11 blade, extended with Chester scissors. The graft was spatulated and sewn end-to-side with running 5-0 Prolene suture. The clamps were released as appropriate. A soft jaw was placed on the graft and a proximal and distal control of the vein was obtained with profunda clamps. A longitudinal venotomy was made with an 11 blade, extended with Chester scissors. The graft was cut in appropriate length, spatulated, and sewn end-to-side with running 5-0 Prolene suture. At the completion, it was flushed and noted to be hemostatic. There was a nice thrill in the fistula. Doppler signal was brisk. The heparin was reversed with protamine. The wounds were irrigated, infiltrated with Marcaine, and closed with 2-0 Polysorb, 3-0 Polysorb, and 4-0 Monocryl. The sponge and needle counts were correct at the end of the case. I was present and scrubbed the entire procedure. MD CHEL Garcia/rick , 11:03 AM , 11:11 AM MTDD
[2018-03-07] MEDS ORDERED: Heparin Central Flush 100 UNIT/ML 5 ML Vial IV.FLUSH ONE (13:04)
[2018-03-07] MEDS: hydrALAZINE 10 MG Tablet PO SCH ×2 (14:08→17:41)
[2018-03-07] MEDS ORDERED: Morphine Inj 4 MG/ML Vial IV.PUSH ONE (17:30)
[2018-03-07] MEDS ORDERED: Heparin 10,000 UNITS/10 ML Vial (for IV use) OTHER PRN ×2 (19:07)
[2018-03-07] MEDS ORDERED: Sod Chloride 0.9% Inj 1,000 ML OTHER PRN ×2 (19:07)
[2018-03-07] MEDS ORDERED: Gelatin 12 MM/7 MM Topical Foam TOPICAL PRN (19:07)
[2018-03-07] MEDS ORDERED: Albumin Human 25% Inj 100 ML IV.SIG PRN (19:07)
[2018-03-07] MEDS ORDERED: Acetaminophen 325 MG Tablet PO PRN (19:07)
[2018-03-07] MEDS ORDERED: Sod Chloride 0.9% Inj 1,000 ML IV.CONT PRN (19:07)
--- NOTE | 2018-03-07 19:07 | P.CONNP ---
History of Present Illness Service: Nephrology Consult date: 03/07/18 Requesting Physician: Alli Sauceda Reason for Consult: End-stage renal disease Primary Care Provider: No Primary Care Physician Family Provider: No Primary Care Physician History of Present Illness: Patient is a 57-year-old -Citizen Of The [place] male with failed kidney transplant on hemodialysis who has diabetes and hypertension, came in for PTFE AV graft in the left arm, this was done earlier and he tolerated the procedure well, he goes on dialysis on Wednesday, and Wednesday, patient denies any chest pain or shortness of breath. Review of Systems Constitutional: Denies anorexia, Denies body ache(s), Denies chills, Denies daytime sleepiness, Denies excessive sweating, Denies fatigue, Denies fever(s), Denies headache(s), Denies increased appetite, Denies lack of energy, Denies malaise, Denies night sweats, Denies weakness, Denies weight gain, Denies weight loss, Denies other Eyes: Denies blind spots, Denies blurry vision, Denies bulging eyes, Denies change in vision, Denies double vision, Denies discharge, Denies dry eyes, Denies floaters, Denies irritation, Denies itchy eyes, Denies loss of vision, Denies pain, Denies requires corrective lenses, Denies sensitivity to light, Denies other Ears, Nose, Mouth, and Throat: Denies abnormal hearing, Denies bleeding gums, Denies bad breath, Denies change in voice, Denies dental pain, Denies difficulty swallowing, Denies dizziness, Denies dry mouth, Denies ear discharge , Denies ear pain, Denies facial pain, Denies headache(s), Denies hearing loss, Denies hoarseness, Denies lip swelling, Denies nosebleed, Denies mouth lesions, Denies mouth pain, Denies nasal congestion, Denies nasal discharge, Denies nasal obstruction, Denies nasal trauma, Denies neck lump, Denies neck pain, Denies nose pain, Denies pain with swallowing, Denies poor balance, Denies post nasal drip, Denies ringing in the ears, Denies sinus pain, Denies sinus pressure , Denies sore throat, Denies throat swelling, Denies tongue swelling, Denies other Cardiovascular: Denies chest pain, Denies chest pain at rest, Denies chest pain with activity, Denies excessive sweating, Denies fainting, Denies fast heart rate, Denies foot swelling, Denies generalized swelling, Denies irregular heart rhythm, Denies leg pain with activity, Denies leg sores, Denies leg swelling, Denies lightheadedness, Denies radiating jaw, neck or arm pain, Denies rapid, pounding, or irregular heartbeat, Denies shortness of breath, Denies shortness of breath with activity, Denies shortness of breath when lying down, Denies shortness of breath causing sudden awakening, Denies slow heart rate, Denies other Respiratory: Denies change in phlegm color, Denies chest congestion, Denies cough, Denies coughing up blood, Denies excessive phlegm production, Denies pain on inspiration, Denies pain with cough, Denies shortness of breath, Denies shortness of breath with activity, Denies snoring, Denies stridor, Denies wheezing, Denies other Gastrointestinal: Reports nausea Musculoskeletal: Reports joint pain, Reports radiating pain into limb PMFSH - History History Provided By: Patient - Medical History Medical History: Medical History (Last Reviewed 03/07/18 @ 08:50 by Alli Sauceda MD) Hyperlipidemia (Acute) Type 2 diabetes mellitus (Chronic) Hypertension (Chronic) AV fistula (Chronic) GERD (gastroesophageal reflux disease) (Chronic) Kidney failure (Chronic) Vascular dialysis catheter in place (Chronic) CHF (congestive heart failure) Dialysis patient History of alcohol use History of illicit drug use Hx of transfusion Obstructive sleep apnea on CPAP Smoking hx TIA (transient ischemic attack) - Surgical History Surgical History: Surgical History (Last Reviewed 03/07/18 @ 08:50 by Alli Sauceda MD) Kidney transplant recipient H/O left knee surgery H/O hernia repair (Resolved) H/O inguinal hernia repair (Resolved) S/P ACL repair (Resolved) - Tobacco History Second Hand Smoke Exposure: Yes Tobacco Use In Past 30 Days: No Smoking Status: Never smoker - Alcohol History How Often Do You Have a Drink Containing Alcohol: Never - Substance Use History Substance History: No History of Abuse - Travel History Recent Travel in the [place] Within the Last 8 Weeks: No Recent Travel Out of the Country Within the Last 8 Weeks: No Medications and Allergies Active Medications: Active Medications Amlodipine Besylate (Norvasc) 10 mg PO DAILY [facility] Atorvastatin Calcium (Lipitor) 10 mg PO DAILY [facility] Bisacodyl (Dulcolax Supp) 10 mg RECTAL DAILY PRN PRN Reason: SEVERE CONSITIPATION Dextrose (D50w Vial) 50 ml IV.PUSH UNSCH PRN PRN Reason: PER HYPOGLYCEMIA PROTOCOL Glucagon (Glucagon Inj) 1 mg OTHER UNSCH PRN PRN Reason: for Hypoglycemia Protocol Hydralazine HCl (Apresoline) 10 mg PO TID [facility] Last Admin: 03/07/18 17:41 Dose: 10 mg Hydromorphone HCl (Dilaudid) 2 mg PO Q4H PRN PRN Reason: PAIN SCALE 6 TO 10 Lactated Ringer's (Lr 1000 Ml Inj) 1,000 mls @ 30 mls/hr IV.SIG .Q24H [facility] Stop: 03/08/18 07:44 Last Admin: 03/07/18 09:31 Dose: Not Given Insulin Aspart (Novolog Insulin Correctional Sugar Inj) 0 unit SQ ACHS AND 3AM [facility]ELSIE; Protocol Last Admin: 03/07/18 17:41 Dose: 1 unit Lactulose (Lactulose Liq) 30 ml PO DAILY PRN PRN Reason: SEVERE CONSITIPATION Levothyroxine Sodium (Synthroid) 50 mcg PO DAILY@0600 [facility] Metoprolol Succinate (Toprol Xl) 100 mg PO DAILY [facility] Miscellaneous Information ([facility] Nursing Information) 1 each OTHER UNSCH PRN PRN Reason: SEE LABEL COMMENTS Stop: 03/08/18 10:52 Oxycodone HCl (Roxicodone) 5 mg PO Q4H PRN PRN Reason: PAIN SCALE 1 TO 5 Last Admin: 03/07/18 14:12 Dose: 5 mg Pantoprazole Sodium (Protonix) 40 mg PO DAILY [facility] Patient Own Medication: Magnesium Gluconate 500mg Tablet 0 each PO DAILY@1100 [facility] Prednisone (Deltasone) 5 mg PO DAILY [facility] Senna/Docusate Sodium (Aline-Colace) 1 tab PO BID [facility] Sennosides (Senokot) 17.2 mg PO Q12H PRN PRN Reason: Moderate Constipation Sodium Bicarbonate (Sodium Bicarbonate) 325 mg PO DAILY [facility] Tacrolimus (Prograf) 3 mg PO Q12H [facility] Allergies Allergy/AdvReac Type Severity Reaction Status Date / Time banana Allergy Severe HIVES Verified 03/07/18 07:45 beet Allergy Severe HIVES Verified 03/07/18 07:45 latex Allergy Severe Hives and Verified 03/07/18 07:45 rash peas Allergy Severe HIVES Verified 03/07/18 07:45 tomato Allergy Severe Hives Verified 03/07/18 07:45 Home Medications Medication Instructions Recorded Confirmed Type amlodipine 10 mg PO DAILY 01/12/18 03/07/18 History atorvastatin [Lipitor] 10 mg PO DAILY 01/12/18 03/07/18 History hydralazine 10 mg PO TID 01/12/18 03/07/18 History insulin aspart U-100 [Novolog 4 sliding scale dose SUB-Q DAILY 01/12/18 History U-100 Insulin aspart] PRN insulin glargine [Lantus U-100 20 unit SUB-Q DAILY 01/12/18 03/07/18 History Insulin] levothyroxine 50 mcg PO DAILY 01/12/18 03/07/18 History magnesium gluconate 500 mg PO DAILY 01/12/18 03/07/18 History metoprolol succinate 100 mg PO DAILY 01/12/18 03/07/18 History pantoprazole [Protonix] 40 mg PO DAILY 01/12/18 03/07/18 History prednisone 5 mg PO DAILY 01/12/18 03/07/18 History sodium bicarbonate 325 mg PO DAILY 01/12/18 03/07/18 History tacrolimus 3 mg PO TID 01/12/18 03/07/18 History Exam Vital signs: Vital Signs 03/07/18 07:40 03/07/18 10:49 03/07/18 11:00 Temperature 97.2 F L 98.0 F Pulse Rate 68 70 72 Respiratory Rate 18 16 16 Blood Pressure 162/89 H 159/88 H 145/83 H Pulse Oximetry 96 96 95 03/07/18 11:15 03/07/18 11:30 03/07/18 11:45 Temperature Pulse Rate 66 66 66 Respiratory Rate 16 16 16 Blood Pressure 115/66 117/67 119/72 Pulse Oximetry 95 95 95 03/07/18 12:00 03/07/18 13:00 03/07/18 13:30 Temperature 97.2 F L Pulse Rate 64 62 62 Respiratory Rate 16 16 20 Blood Pressure 121/68 122/64 132/74 Pulse Oximetry 96 97 100 03/07/18 16:00 Temperature 98.1 F Pulse Rate 63 Respiratory Rate 16 Blood Pressure 145/82 H Pulse Oximetry 96 Intake & Output 03/07/18 03/07/18 03/08/18 06:59 18:59 06:59 Intake Total 1300 / 1300 Output Total 350 / 350 Balance 950 / 950 Weight 76.8 kg Intake: IV 700 / 700 Heparin/NS PF Inj 500 ML @ 0 0 / 0 mls/hr .ROUTE .STK-MED ONE Rx#: [id number] NS Inj 500 ML @ 30 mls/hr IV. 700 / 700 SIG .Q10H [facility] Rx#:[id number] Oral 600 / 600 Output: Urine 300 / 300 Estimated Blood Loss 50 / 50 Narrative: General: In no acute distress Neck: Supple Chest and lungs: Clear to auscultation left-sided permacath in place CVS: Regular rate and rhythm Abdomen: Soft nontender no organomegaly bowel sounds are present Extremity: Left AV graft in place Neurologically: Alert oriented 3 Results - Lab Results 03/07/18 08:00 03/07/18 08:00 Most recent lab results Calcium 7.8 mg/dL (8.5-10.1) L 03/07/18 08:00 Assessment and Plan - Assessment (1) ESRD (end stage renal disease) on dialysis Code(s): N18.6 - End stage renal disease; Z99.2 - Dependence on renal dialysis Status: Acute (2) Type 2 diabetes mellitus Code(s): E11.9 - Type 2 diabetes mellitus without complications Status: Chronic (3) Hypertension Code(s): I10 - Essential (primary) hypertension Status: Chronic - Plan Patient seen to hemodialysis tomorrow a.m. continue with Wednesday, Wednesday dialysis Status post AV graft Continue to monitor
[2018-03-07] MEDS: Senna/Docusate Sodium 8.6/50 MG Tablet PO SCH ×2 (20:01→20:10)
[2018-03-08] MEDS: Insulin NovoLOG Aspart Correctional Sugar Inj SQ SCH ×5 (03:35→20:45)
[2018-03-08] MEDS: Levothyroxine 50 MCG Tablet PO SCH (05:40)
--- NOTE | 2018-03-08 10:45 | P.PNVS ---
Subjective Post Op Day #: 1 Procedure: LEFT Upper extremity AVG (6mm PTFE) Subjective/Hospital Course: 57/M seen in HD Pt c/o left arm swelling and incisional pain Pain controlled Pt w/o hand pain + thrill Objective Vital Signs / I&O: Vital Signs 03/07/18 10:49 03/07/18 11:00 03/07/18 11:15 Temperature 98.0 F Pulse Rate 70 72 66 Respiratory Rate 16 16 16 Blood Pressure 159/88 H 145/83 H 115/66 Pulse Oximetry 96 95 95 03/07/18 11:30 03/07/18 11:45 03/07/18 12:00 Temperature Pulse Rate 66 66 64 Respiratory Rate 16 16 16 Blood Pressure 117/67 119/72 121/68 Pulse Oximetry 95 95 96 03/07/18 13:00 03/07/18 13:30 03/07/18 16:00 Temperature 97.2 F L 98.1 F Pulse Rate 62 62 63 Respiratory Rate 16 20 16 Blood Pressure 122/64 132/74 145/82 H Pulse Oximetry 97 100 96 03/07/18 20:10 03/08/18 00:00 03/08/18 00:14 Temperature 97.5 F L 97.9 F Pulse Rate 63 67 63 Respiratory Rate 18 18 Blood Pressure 150/76 H 158/87 H Pulse Oximetry 96 96 03/08/18 04:00 03/08/18 04:28 03/08/18 08:00 Temperature 97.8 F 98.1 F Pulse Rate 70 69 75 Respiratory Rate 18 17 Blood Pressure 154/83 H 171/85 H Pulse Oximetry 93 L 90 L Intake & Output 03/07/18 03/08/18 03/08/18 18:59 06:59 18:59 Intake Total 1300 / 1300 720 / 720 Output Total 350 / 350 700 / 700 Balance 950 / 950 20 / 20 Weight 76.8 kg 80 kg Intake: IV 700 / 700 Heparin/NS PF Inj 500 ML @ 0 0 / 0 mls/hr .ROUTE .STK-MED ONE Rx#: [id number] NS Inj 500 ML @ 30 mls/hr IV. 700 / 700 SIG .Q10H [facility] Rx#:[id number] Oral 600 / 600 720 / 720 Output: Urine 300 / 300 700 / 700 Estimated Blood Loss 50 / 50 Exam: 57/M GCS 15, NAD, Speech clear Left arm swelling + trill near AVF Palpable L Radial pulse Incisions intact Laboratory Results - last 24 hr 03/07/18 03/07/18 03/07/18 10:52 16:45 20:20 POC Glucose 166 H 184 H 161 H 03/08/18 03/08/18 03:26 07:38 POC Glucose 218 H 142 H Assessment and Plan - Assessment (1) ESRD (end stage renal disease) on dialysis Code(s): N18.6 - End stage renal disease; Z99.2 - Dependence on renal dialysis Status: Acute - Plan 57/ S/P L UE access Pt doing well Pt c/o L UE swelling and incisional pain + thrill Palpable Distal Pulses Plan Elevate L UE for swelling Apply ice pack to L UE Continue pain control D/C planning for tomorrow am Aida Meadows NP [facility] [phone] Discharge Planning: Tomorrow am
[2018-03-08] MEDS: hydrALAZINE 10 MG Tablet PO SCH ×3 (11:25→17:41)
[2018-03-08] MEDS: predniSONE 5 MG Tablet PO SCH (13:59)
[2018-03-08] MEDS: amLODIPine 10 MG Tablet PO SCH (13:59)
[2018-03-08] MEDS: Senna/Docusate Sodium 8.6/50 MG Tablet PO SCH ×2 (14:00→20:43)
[2018-03-08 16:42] VITALS: RESP 18
[2018-03-08 18:17] LABS: Hematocrit 34.4 % (39.0-51.0); Hemoglobin 10.9 gm/dL (13.0-17.0); Mean Corpuscular HGB Conc 31.6 % (32.0-36.0); Mean Corpuscular Hemoglobin 25.6 pg (27.0-34.0); Mean Corpuscular Volume 81.1 fL (80.0-100.0); Mean Platelet Volume 7.9 fL (7.0-11.0); Platelet Count 325 th/mm3 (150-450); Red Blood Count 4.24 mil/mm3 (4.50-5.90); Red Cell Distribution Width 20.4 % (11.6-17.2); White Blood Count 9.3 th/mm3 (4.0-11.0)
[2018-03-08 19:04] LABS: Calcium 7.8 mg/dL (8.5-10.1); Carbon Dioxide 29.7 meq/L (21.0-32.0); Potassium 4.8 meq/L (3.5-5.1)
--- NOTE | 2018-03-08 19:09 | P.PNNP ---
Subjective Interval history: pt doing well Physical Exam Vital signs: Vital Signs 03/07/18 20:10 03/08/18 00:00 03/08/18 00:14 Temperature 97.5 F L 97.9 F Pulse Rate 63 67 63 Respiratory Rate 18 18 Blood Pressure 150/76 H 158/87 H Pulse Oximetry 96 96 03/08/18 04:00 03/08/18 04:28 03/08/18 08:00 Temperature 97.8 F 98.1 F Pulse Rate 70 69 75 Respiratory Rate 18 17 Blood Pressure 154/83 H 171/85 H Pulse Oximetry 93 L 90 L 03/08/18 13:56 03/08/18 14:04 03/08/18 15:46 Temperature 99.3 F Pulse Rate 86 Respiratory Rate 19 10 L 6 L Blood Pressure 190/89 H Pulse Oximetry 95 03/08/18 16:00 Temperature 96.4 F L Pulse Rate 77 Respiratory Rate 18 Blood Pressure 136/65 Pulse Oximetry 96 Intake & Output 03/08/18 03/08/18 03/09/18 06:59 18:59 06:59 Intake Total 720 / 720 500 / 500 Output Total 700 / 700 3125 / 3125 Balance -2625 / -2625 Weight 80 kg Intake: Oral 720 / 720 500 / 500 Output: Urine 700 / 700 125 / 125 Hemodialysis Amount 3000 / 3000 Other: Date of Last Bowel Movement 03/07/18 # Bowel Movements 0 - Constitutional no acute distress - Routine HEENT Exam Eye: Present: EOMI - Routine Respiratory Exam Present: CTA bilaterally - Routine Cardiovascular Exam Present: RRR - Routine Abdominal Exam Present: soft, normoactive bowel sounds - Routine Extremities Exam Present: edema Assessment and Plan - Assessment (1) ESRD (end stage renal disease) on dialysis Code(s): N18.6 - End stage renal disease; Z99.2 - Dependence on renal dialysis Status: Acute (2) Type 2 diabetes mellitus Code(s): E11.9 - Type 2 diabetes mellitus without complications Status: Chronic (3) Hypertension Code(s): I10 - Essential (primary) hypertension Status: Chronic - Plan Patient seen to hemodialysis done 2 L Off continue with Wednesday, Wednesday dialysis Status post AV graft Continue to monitor
[2018-03-09] MEDS: Insulin NovoLOG Aspart Correctional Sugar Inj SQ SCH ×2 (02:54→09:06)
[2018-03-09] MEDS: Levothyroxine 50 MCG Tablet PO SCH (05:12)
[2018-03-09] MEDS: amLODIPine 10 MG Tablet PO SCH (08:28)
[2018-03-09] MEDS: hydrALAZINE 10 MG Tablet PO SCH ×2 (08:28→13:15)
[2018-03-09] MEDS: predniSONE 5 MG Tablet PO SCH (08:28)
[2018-03-09] MEDS: Senna/Docusate Sodium 8.6/50 MG Tablet PO SCH (08:31)
--- NOTE | 2018-03-09 09:08 | P.PNVS ---
Subjective Post Op Day #: 2 Procedure: LEFT Upper extremity AVG (6mm PTFE) Subjective/Hospital Course: 57/M alert in NAD, FM at the BS Pt c/o left arm swelling and incisional pain Pain controlled Pt w/o hand pain + thrill L UE swelling with improved swelling Objective Vital Signs / I&O: Vital Signs 03/08/18 13:56 03/08/18 14:04 03/08/18 15:46 Temperature 99.3 F Pulse Rate 86 Respiratory Rate 19 10 L 6 L Blood Pressure 190/89 H Pulse Oximetry 95 03/08/18 16:00 03/08/18 20:00 03/09/18 00:45 Temperature 96.4 F L 98.3 F 98.9 F Pulse Rate 77 77 75 Respiratory Rate 18 18 18 Blood Pressure 136/65 158/83 H 160/87 H Pulse Oximetry 96 96 96 03/09/18 05:12 Temperature 97.6 F Pulse Rate 78 Respiratory Rate 18 Blood Pressure 196/96 H Pulse Oximetry 96 Intake & Output 03/08/18 03/09/18 03/09/18 18:59 06:59 18:59 Intake Total 500 / 500 Output Total 3125 / 3125 700 / 700 Balance -2625 / -2625 -700 / -700 Weight 80 kg Intake: Oral 500 / 500 Output: Urine 125 / 125 700 / 700 Hemodialysis Amount 3000 / 3000 Other: Date of Last Bowel Movement 03/07/18 # Bowel Movements 0 Exam: 57/M Alert in NAD, Speech clear Resp even + S1,S2 + thrill L UE w/ improved swelling + palpable R/L Radial pulse Incision intact with mild drainage /No erythema present Laboratory Results - last 24 hr 03/08/18 03/08/18 03/08/18 11:01 13:53 17:30 WBC 9.3 RBC 4.24 L Hgb 10.9 L Hct 34.4 L MCV 81.1 MCH 25.6 L MCHC 31.6 L RDW 20.4 H Plt Count 325 MPV 7.9 Sodium Potassium Chloride Carbon Dioxide Anion Gap BUN Creatinine Estimated GFR POC Glucose 165 H 155 H Random Glucose Calcium 03/08/18 03/08/18 03/08/18 17:30 17:33 20:33 WBC RBC Hgb Hct MCV MCH MCHC RDW Plt Count MPV Sodium 138 Potassium 4.8 Chloride 100 Carbon Dioxide 29.7 Anion Gap 8 BUN 33 H Creatinine 4.15 H Estimated GFR 18 L POC Glucose 303 H 255 H Random Glucose 269 H D Calcium 7.8 L 03/09/18 03/09/18 02:51 08:39 WBC RBC Hgb Hct MCV MCH MCHC RDW Plt Count MPV Sodium Potassium Chloride Carbon Dioxide Anion Gap BUN Creatinine Estimated GFR POC Glucose 132 H 170 H Random Glucose Calcium Assessment and Plan - Assessment (1) ESRD (end stage renal disease) on dialysis Code(s): N18.6 - End stage renal disease; Z99.2 - Dependence on renal dialysis Status: Acute - Plan 57/ S/P L UE access Pt doing well Pt w/ improved L UE swelling + thrill Palpable Distal Pulses Pain controlled Plan Elevate L UE for swelling Apply ice pack to L UE Continue pain control Pt clear for D/C planning Arranged out pt f/u Discussed and reviewed post operative care and management w/ pt and FM Aida Meadows NP [facility] [phone] Discharge Planning: Today
--- NOTE | 2018-03-09 09:32 | P.DS ---
Discharge Summary - Admission Date 03/07/18 10:25 - Admission Diagnosis (1) ESRD (end stage renal disease) on dialysis - Discharge Date 03/09/18 - Discharge Diagnosis (1) ESRD (end stage renal disease) on dialysis Status: Chronic (2) AV fistula Status: Acute - Summary Brief History from admission: 57 yo male with ESRD, s/p CRTx that has failed. Getting HD via L chest catheter Admitted for a L UE AVF access Procedure: LEFT Upper extremity AVG (6mm PTFE) Significant Findings: 57/M Alert in NAD, Speech clear Resp even + S1,S2 + thrill L UE w/ improved swelling + palpable R/L Radial pulse Incision intact with mild drainage /No erythema present Abnormal Lab Results 03/08/18 03/08/18 03/08/18 11:01 13:53 17:30 WBC 9.3 RBC 4.24 L Hgb 10.9 L Hct 34.4 L MCV 81.1 MCH 25.6 L MCHC 31.6 L RDW 20.4 H Plt Count 325 MPV 7.9 Sodium Potassium Chloride Carbon Dioxide Anion Gap BUN Creatinine Estimated GFR POC Glucose 165 H 155 H Random Glucose Calcium 03/08/18 03/08/18 03/08/18 17:30 17:33 20:33 WBC RBC Hgb Hct MCV MCH MCHC RDW Plt Count MPV Sodium 138 Potassium 4.8 Chloride 100 Carbon Dioxide 29.7 Anion Gap 8 BUN 33 H Creatinine 4.15 H Estimated GFR 18 L POC Glucose 303 H 255 H Random Glucose 269 H D Calcium 7.8 L 03/09/18 03/09/18 02:51 08:39 WBC RBC Hgb Hct MCV MCH MCHC RDW Plt Count MPV Sodium Potassium Chloride Carbon Dioxide Anion Gap BUN Creatinine Estimated GFR POC Glucose 132 H 170 H Random Glucose Calcium Hospital Course: 57/M with a PMH of ESRD who receives HD every T/T/S via tunneled catheter (L Chest). Pt s/p failed L UE access Pt admitted for L UE Access creation Pt underwent a LEFT Upper extremity AVG (6mm PTFE) Pt did well w/ post operative swelling and incisional pain Pain controlled Pt w/o c/o hand pain and continued to have palpable distal pulses Swelling showed signs of improvement on POD 2 Pt clear for d/c and f/u was arranged Discussed and reviewed post operative care and management w/ pt and spouse Questions answered E- forcse reviewed- No recent activity noted/ Rx post operative pain medication for out pt pain control - Discharge Instructions Any questions or concerns: Call [facility] [phone] Discharge Plan - Discharge Disposition Patient Disposition: 01 Discharge Home - Discharge Condition Condition: Good - Discharge Order Discharge Orders: Discharge Order (Routine); Ordered 03/09/18 Ordered By: Corinne Meadows - Physicians Team Primary Care Provider: Primary Care Letty Miller Attending Provider: Alli Sauceda Other Providers: Cassandra Sanchez MD ; Hemanth Saxena - Rxs /Orders / Referrals /Forms Prescriptions: New oxycodone-acetaminophen [Percocet] 5-325 mg Tablet 1 tab PO Q4-6H PRN (Reason: Pain ) Qty: 20 RF: 0 Continue amlodipine 10 mg Tablet 10 mg PO DAILY atorvastatin [Lipitor] 20 mg Tablet 10 mg PO DAILY hydralazine 10 mg Tablet 10 mg PO TID insulin aspart U-100 [Novolog U-100 Insulin aspart] 100 unit/mL Solution 4 sliding scale dose SUB-Q DAILY PRN (Reason: Hyperglycemia) insulin glargine [Lantus U-100 Insulin] 100 unit/mL Solution 20 unit SUB-Q DAILY levothyroxine 50 mcg Capsule 50 mcg PO DAILY magnesium gluconate 27.5 mg (500 mg) Tablet 500 mg PO DAILY metoprolol succinate 50 mg Tablet Extended Release 24 Hr 100 mg PO DAILY pantoprazole [Protonix] 40 mg Tablet,Delayed Release (Dr/Ec) 40 mg PO DAILY prednisone 10 mg Tablet 5 mg PO DAILY sodium bicarbonate 325 mg Tablet 325 mg PO DAILY tacrolimus 5 mg Capsule 3 mg PO TID Referrals: Primary Care Letty Miller [Primary Care Provider] - See Instructions Alli Sauceda MD [Physician] - See Instructions (Your Post Op follow up is scheduled on 03/30/18 at 1:30) - Discharge Instructions Patient Printed Instructions: Dialysis Diet (GEN), Arteriovenous Graft Placement for Hemodialysis (DC), End Stage Kidney Disease (GEN), Hemodialysis ( DC) Additional Instructions: Discharge patient to home Condition on discharge: Improved Dialysis as tolerated Ad Radha activity Rx written: Follow-up with primary care physician Discharge Care Plan Goals Directions to Meet your Goals: 1. Pain Relief: You will recover faster after surgery if your pain is kept under control: * Take pain medicine as directed by your doctor. * Tell your doctor if you have questions about what youre feeling, if your medicines dont reduce your pain, or if you suddenly feel worse. 2. Activity: * Dont drive until your doctor says its OK. And never drive while taking opioid pain medicine. * Ask someone to stand nearby while you shower or do other activities, just in case you need help. Dont lift anything heavier than 5 pounds for 10 days (LEFT Upper Extremity) * Until approved by doctor, avoid mowing the lawn, vacuuming or driving 3. Diet and Exercise: * Maintain a healthy weight. If needed, get help to loose extra pounds. * Avoid fatty and fried foods. Stick to lean meats, such as chicken or fish. * Cut back on salt: - Limit canned, dried, packaged, and fast foods. - Dont add salt to your food at the table. - Season foods with herbs instead of salt when you cook * Ask your healthcare provider when you can start a walking program: - If you havent already started a walking program in the hospital, begin with short walks (about 5 minutes) at home. Go a little longer each day. - Choose a safe place with a level surface, such as a local park or mall. - Wear supportive shoes to prevent injury to your knees and ankles. - Walk with someone. Its more fun and helps you stay with it. 4. Prevent Falls/Injury: * If you are unstable on your feet, remember to ask for help from others. * Avoid using very hot water while showering. It can affect your circulation and make you dizzy. * Free up your hands so that you can use them to keep balance. Use a harman pack , apron, or pockets to carry things. * Arrange your household to keep the items you need handy. Keep everything else out of the way. * Remove items that may cause you to fall, such as throw rugs and electrical cords. * Use nonslip bath mats, grab bars, an elevated toilet seat, and a shower chair in your bathroom * Sit on a shower stool or chair when you shower to keep from falling. 5. Incision Care: Healing takes several weeks. * Check your incision daily for redness, swelling, tenderness, or drainage. * Prevent infection by washing your hands often. If an infection occurs, it will need to be treated right away. * Call your doctor right away if you think you may have an infection. Symptoms include a fever or an incision that leaks white, green, or yellow fluid. * Don't soak your incision in water until your doctor says its OK. This means no hot tubs, bathtubs, or swimming pools. * Follow your doctor's instructions for changing the dressing- LEAVE open to air * Dont rub the incision, or apply creams or lotions to it. 6. Follow-Up: Do Not miss your follow-up appointment. Keep up with all your appointments and yearly check ups
[2018-03-09 10:38] VITALS: BP 177/88; PULSE 83; TEMP 98.5; O2SAT 98
== END 2018-03-09 13:29 | disposition home or self-care (01) ==
LOC: HSDC 06:44 → HSDI 06:44 → N07 13:33
PROVIDERS: ADMIT Surgery; ATTEND Surgery
PROC: AVGFTUE (ICD-10-PCS; 2018-03-07 08:59)

== ENCOUNTER 2018-05-04 09:23 | Observation (INO) ==
[2018-05-04] MEDS ORDERED: Heparin/NS PF Inj 500 ML ONE (09:56)
[2018-05-04] MEDS ORDERED: Bupivacaine 0.5% Inj 50 ML MDV Vial ONE (09:57)
[2018-05-04] MEDS ORDERED: Thrombin Topical Soln 5,000 UNIT Vial TOPICAL ONE (10:02)
[2018-05-04] MEDS ORDERED: Metoprolol Tartrate 25 MG Tablet PO SCH (10:11)
[2018-05-04] MEDS ORDERED: Chlorhexidine Gluconate 2% 1 Pack (2 Cloths) TOPICAL SCH (10:11)
--- NOTE | 2018-05-04 10:21 | P.HPVS ---
History of Present Illness Chief Complaint: L UE swelling, AVF History of Present Illness: 57 yo male with L brach-ax and swelling and mass in L UE, no evidence of PSA on duplex or fistulogram. To OR for access revision. - Inpatient Certification If this patient has been admitted as an Inpatient: I certify that the inpatient services were ordered in accordance with Medicare regulations governing the order. This includes certification that hospital inpatient services are reasonable and necessary and in the case of services not specified as inpatient-only under 42 CFR 419.22(n), that they are appropriately provided as inpatient services in accordance to with the 2-midnight benchmark under 43 CFR 412.3(e) Estimated Total Length of Stay (Days): 2 Plans for Post Hospital Care: Home Review of Systems Constitutional: Denies chills, Denies fatigue, Denies fever(s) PMFSH - History History Provided By: Patient - Medical History Medical History: Medical History (Last Reviewed 05/04/18 @ 10:19 by Alli Sauceda MD) Hyperlipidemia (Acute) Type 2 diabetes mellitus (Chronic) Hypertension (Chronic) AV fistula (Acute) GERD (gastroesophageal reflux disease) (Chronic) Kidney failure (Chronic) Vascular dialysis catheter in place (Chronic) CHF (congestive heart failure) Dialysis patient History of alcohol use History of illicit drug use Hx of transfusion Obstructive sleep apnea on CPAP Smoking hx TIA (transient ischemic attack) - Surgical History Surgical History: Surgical History (Last Reviewed 05/04/18 @ 10:19 by Alli Sauceda MD) H/O left knee surgery Kidney transplant recipient H/O hernia repair (Resolved) H/O inguinal hernia repair (Resolved) S/P ACL repair (Resolved) - Tobacco History Second Hand Smoke Exposure: No Smoking Status: Never smoker - Alcohol History How Often Do You Have a Drink Containing Alcohol: Never - Substance Use History Substance History: No History of Abuse Medications and Allergies Active Medications: Active Medications Chlorhexidine Gluconate (Chlorhexidine 2% Cloth) 3 pack [employer]ICAL [employer] KELSIE Stop: 05/04/18 23:59 Lactated Ringer's (Lr 1000 Ml Inj) 1,000 mls @ 30 mls/hr IV.SIG .Q24H KELSIE Stop: 05/05/18 10:14 Sodium Chloride (Ns Inj) 500 mls @ 30 mls/hr IV.SIG .[id number] KELSIE Stop: 05/05/18 03:39 Metoprolol Tartrate (Lopressor) 25 mg PO PR[employer] PROD[employer] [facility] Stop: 05/04/18 23:59 Povidone Iodine (Betadine 5% Antisepsis Kit) 1 applicatio EACH NARE [employer] [facility] Stop: 05/04/18 23:59 Allergies Allergy/AdvReac Type Severity Reaction Status Date / Time banana Allergy Severe HIVES Verified 05/02/18 15:26 beet Allergy Severe HIVES Verified 05/02/18 15:26 latex Allergy Severe Hives and Verified 05/02/18 15:26 rash peas Allergy Severe HIVES Verified 05/02/18 15:26 tomato Allergy Severe Hives Verified 05/02/18 15:26 Home Medications Medication Instructions Recorded Confirmed Type amlodipine 10 mg PO DAILY 01/12/18 05/02/18 History atorvastatin [Lipitor] 40 mg PO DAILY 01/12/18 05/02/18 History hydralazine 25 mg PO TID 01/12/18 05/02/18 History insulin glargine [Lantus U-100 20 unit SUB-Q DAILY 01/12/18 05/02/18 History Insulin] levothyroxine 25 mcg PO DAILY 01/12/18 05/02/18 History magnesium gluconate 500 mg PO BID 01/12/18 05/02/18 History pantoprazole [Protonix] 40 mg PO DAILY 01/12/18 05/02/18 History prednisone 20 mg PO DAILY 01/12/18 05/02/18 History sodium bicarbonate 650 mg PO QID 01/12/18 05/02/18 History tacrolimus 1 mg PO BID 01/12/18 05/02/18 History baclofen 10 mg PO TID 04/18/18 05/02/18 History cholecalciferol (vitamin D3) 400 unit PO DAILY 04/18/18 05/02/18 History fluticasone [Flonase Allergy 1 spray INTRANASAL DAILY 04/18/18 05/02/18 History Relief] insulin lispro [Humalog U-100 8 unit SUBCUT BID 04/18/18 05/02/18 History Insulin] mycophenolate mofetil [CellCept] 500 mg PO BID 04/18/18 05/02/18 History ondansetron HCl [Zofran] 4 mg PO Q6-8H PRN 04/18/18 05/02/18 History valganciclovir 450 mg PO DAILY 04/18/18 05/02/18 History vitamin B complex 1 tab PO DAILY 04/18/18 05/02/18 History Physical Exam Neuro: alert, no distress HEENT: NC/AT Neck: no JVD Heart: reg rate Lungs: clear Vascular: L UE with + thrill. Mass in L axilla but no thrill in mass. no skin compromise Caprini VTE Risk Assessment Caprini VTE Risk Assessment: No/Low Risk (score <= 1) (intraop heparin) Caprini Risk Assessment Model: Point Value = 1 Point Value = 2 Point Value = 3 Point Value = 5 Age 41-60 Minor surgery BMI > 25 kg/m2 Swollen legs Varicose veins or History of unexplained or recurrent spontaneous Oral contraceptives or hormone replacement Sepsis (< 1 month) Serious lung disease, including pneumonia (< 1 month) Abnormal pulmonary function Acute myocardial infarction Congestive heart failure (< 1 month) History of inflammatory bowel disease Medical patient at bed rest Age 61-74 Arthroscopic surgery Major open surgery (> 45 min) Laparoscopic surgery (> 45 min) Malignancy Confined to bed (> 72 hours) Immobilizing plaster cast Central venous access Age >= 75 History of VTE Family history of VTE Factor V Leiden Prothrombin [id number] Lupus anticoagulant Anticardiolipin antibodies Elevated serum homocysteine Heparin-induced thrombocytopenia Other congenital or acquired thrombophilia Stroke (< 1 month) Elective arthroplasty Hip, pelvis, or leg fracture Acute spinal cord injury (< 1 month) Prophylaxis Regimen: Total Risk Factor Score Risk Level Prophylaxis Regimen 0-1 Low Early ambulation 2 Moderate Order ONE of the following: *Sequential Compression Device (SCD) *Heparin 5000 units SQ BID 3-4 Higher Order ONE of the following medications: *Heparin 5000 units SQ TID *Enoxaparin/Lovenox 40 mg SQ daily (WT < 150 kg, CrCl > 30 mL/min) *Enoxaparin/Lovenox 30 mg SQ daily (WT < 150 kg, CrCl > 10-29 mL/min) *Enoxaparin/Lovenox 30 mg SQ BID (WT < 150 kg, CrCl > 30 mL/min) AND/OR *Sequential Compression Device (SCD) 5 or more Highest Order ONE of the following medications: *Heparin 5000 units SQ TID (Preferred with Epidurals) *Enoxaparin/Lovenox 40 mg SQ daily (WT < 150 kg, CrCl > 30 mL/min) *Enoxaparin/Lovenox 30 mg SQ daily (WT < 150 kg, CrCl > 10-29 mL/min) *Enoxaparin/Lovenox 30 mg SQ BID (WT < 150 kg, CrCl > 30 mL/min) AND *Sequential Compression Device (SCD) Assessment and Plan - Assessment (1) ESRD (end stage renal disease) on dialysis Code(s): N18.6 - End stage renal disease; Z99.2 - Dependence on renal dialysis Status: Chronic (2) Left arm swelling Code(s): M79.89 - Other specified soft tissue disorders Status: Acute - Plan L UE AVF revision. POA for obs Discussed risks and benefits with patient and . To OR. Operative site marked. [phone]
--- NOTE | 2018-05-04 10:58 | XR ---
EXAM DATE: 05/04/2018 10:52 AM EST AGE/SEX: 57 years / Male INDICATIONS: Evaluate for penumona, pneumothorax, or communicable disease. Pre op for left arm drain age. CLINICAL DATA: This is the patient's initial encounter. Patient reports that signs and symptoms have been present for 1 day and indicates a pain score of 0/10. MEDICAL/SURGICAL HISTORY: Hypertension. End stage renal disease. Dialysis. AV fistula. RLQ morgan splant kidney. . COMPARISON: [facility], CHEST 1V SINGLE AP, 03/07/2018. . FINDINGS: New tunneled right IJ dialysis catheter. No significant new focal pleural or parenchymal opacities. C ardiac silhouette is enlarged. Osseous structures are intact. CONCLUSION: 1. Compensated cardiomegaly. Electronically signed by: Blake Leggett MD 05/04/2018 10:57 AM EST
[2018-05-04] MEDS ORDERED: Heparin 2,000 UNITS/2 ML Vial (for IV use) IV.FLUSH PRN (10:59)
[2018-05-04] MEDS ORDERED: Sodium Chlor 0.9% Inj 500 ML IV.SIG SCH (11:00)
[2018-05-04 11:11] LABS: Baso % (Auto) 0.5 % (0.0-2.0); Eos % (Auto) 0.1 % (0.0-4.0); Hematocrit 35.1 % (39.0-51.0); Hemoglobin 10.8 gm/dL (13.0-17.0); Lymph # (Auto) 0.6 th/mm3 (1.0-4.8); Lymph % (Auto) 9.9 % (9.0-44.0); Mean Corpuscular Hemoglobin 25.2 pg (27.0-34.0); Mean Corpuscular Volume 81.6 fL (80.0-100.0); Mean Platelet Volume 7.8 fL (7.0-11.0); Mono # (Auto) 0.4 th/mm3 (0.0-0.9); Mono % (Auto) 6.4 % (0.0-8.0); Neut # (Auto) 5.3 th/mm3 (1.8-7.7); Neut % (Auto) 83.1 % (16.0-70.0); Platelet Count 243 th/mm3 (150-450); Red Cell Distribution Width 20.8 % (11.6-17.2); White Blood Count 6.3 th/mm3 (4.0-11.0)
[2018-05-04 11:12] LABS: Mean Corpuscular HGB Conc 30.8 % (32.0-36.0)
[2018-05-04] MEDS ORDERED: Sodium Chlor 0.9% Inj 250 ML IV.CONT ONE (11:16)
[2018-05-04] MEDS ORDERED: Lidocaine PF 1% Inj 5 ML Syringe OTHER ONE (11:16)
[2018-05-04 11:19] LABS: INR 1.1 Ratio; Prothrombin Time 11.3 sec (9.8-11.6)
[2018-05-04 11:34] LABS: Carbon Dioxide 22.7 meq/L (21.0-32.0); Potassium 4.7 meq/L (3.5-5.1)
[2018-05-04] MEDS: Heparin 10,000 UNITS/10 ML Vial (for IV use) ONE ×2 (11:42→12:54)
[2018-05-04] MEDS: Protamine Sulfate Inj 50 MG/5 ML Vial ONE ×2 (11:43→12:53)
[2018-05-04] MEDS ORDERED: Bisacodyl 10 MG Supp RECTAL PRN (12:16)
[2018-05-04] MEDS ORDERED: Morphine Inj 4 MG/ML Vial IV.PUSH PRN (12:16)
--- NOTE | 2018-05-04 12:16 | P.OP ---
- Preoperative Diagnosis (1) ESRD (end stage renal disease) on dialysis (2) AV fistula Comment: LEFT NON FUNCTIONING NOW; HERE FOR THROMBECTOMY/REVISION - Postoperative Diagnosis (1) Seroma after procedure Date of procedure: 05/04/18 Procedure: Axillary seroma drainage Implants: none Anesthesia: GETA Surgeon: Alli Sauceda MD Cherry Dipper: Drew Patterson Estimated blood loss (mL): 50 IV fluids (mL): 650 Pathology: none sent Operation and Findings: seroma but graft intact and not directly involved + thrill at end of case
[2018-05-04] MEDS ORDERED: Baclofen 10 MG Tablet PO PRN (12:19)
--- NOTE | 2018-05-04 12:33 | MP ---
cc: Alli Sauceda MD DATE OF OPERATION: 05/04/2018 PREOPERATIVE DIAGNOSIS: Left upper extremity mass, status post arteriovenous fistula. POSTOPERATIVE DIAGNOSES: Left upper extremity mass, status post arteriovenous fistula. PROCEDURE PERFORMED: Drainage of the left axillary seroma. ATTENDING SURGEON: Alli Sauceda MD TIMBER BUCKER SURGEON: Drew Patterson. ANESTHESIA: General. INDICATIONS: Mr. Gabriel is a 57-year-old gentleman with left brachial artery axillary vein arteriovenous graft. He has a diminished arm size due to the central vein intervention and now has an axillary mass that is either consistent with a hematoma or pseudoaneurysm. He was taken to the operating room for access revision. Intraoperatively, it was found he had a seroma and this was excised and mechanically debrided. DESCRIPTION OF PROCEDURE: Informed consent was obtained from the patient. He was taken to the operating room and placed supine on the operating table. An appropriate timeout was taken to ensure the patient's identity, operative site and planned procedure. The administration of 1 gram of vancomycin was initiated prior to skin incision and will be discontinued after single preoperative dose. Vancomycin was chosen because of the patient's end-stage renal disease. Everyone in the room agreed with the timeout and we proceeded. His left arm was prepped and draped. An incision made in the axilla, carried down through subcutaneous tissue with electrocautery. The mass was identified. It was dissected circumferentially and sharply entered. Serous fluid was encountered; no odor or any suggestion of infection was obtained. We then irrigated the whole area, debrided the seroma cavity and I closed the cavity with 2-0 Polysorb, 3-0 Polysorb and 4-0 Monocryl. Sponge and needle counts were correct at the end of the case. I was present and scrubbed for the entire procedure. Alli Sauceda MD [facility]/charles , 12:22 PM , 12:28 PM
[2018-05-04] MEDS ORDERED: Sod Chloride 0.9% Inj 1,000 ML OTHER PRN ×2 (13:02)
[2018-05-04] MEDS ORDERED: Heparin 10,000 UNITS/10 ML Vial (for IV use) OTHER PRN ×2 (13:02)
[2018-05-04] MEDS ORDERED: Acetaminophen 325 MG Tablet PO PRN (13:02)
[2018-05-04] MEDS ORDERED: Sod Chloride 0.9% Inj 1,000 ML IV.CONT PRN (13:02)
[2018-05-04] MEDS ORDERED: Gelatin 12 MM/7 MM Topical Foam TOPICAL PRN (13:02)
[2018-05-04] MEDS ORDERED: Albumin Human 25% Inj 100 ML IV.SIG PRN (13:02)
[2018-05-04] MEDS ORDERED: fentaNYL Citrate Inj 100 MCG/2 ML Ampul ONE (13:10)
[2018-05-04] MEDS ORDERED: Heparin Central Flush 100 UNIT/ML 5 ML Syringe IV.FLUSH ONE (13:12)
[2018-05-04] MEDS ORDERED: *Ondansetron Inj 4 MG/2 ML Vial PERIprocedural Use ONLY ONE (13:18)
[2018-05-04] MEDS ORDERED: *morphine SULFATE 10 MG/ML PERIprocedure ONLY ONE (13:39)
--- NOTE | 2018-05-04 14:55 | P.CONNP ---
History of Present Illness Service: Nephrology Consult date: 05/04/18 Requesting Physician: Alli Sauceda Reason for Consult: ESRD Primary Care Provider: No Primary Care Physician Chief Complaint: Left arm swelling History of Present Illness: Patient is a 57-year-old -[place] male with history of failed kidney transplant, ESRD, diabetes, hypertension who has been admitted with left arm swelling, he underwent excision of seroma left axilla, he is having some pain, he denies any chest pain or shortness of breath, he still is making urine, he is maintained on immunosuppressive medication the dose has been tapered tacrolimus is 3 mg twice a day, prednisone 2.5 mg daily and CellCept 500 mg daily. Review of Systems Constitutional: Denies anorexia, Denies body ache(s), Denies chills, Denies daytime sleepiness, Denies excessive sweating, Denies fatigue, Denies fever(s), Denies headache(s), Denies increased appetite, Denies lack of energy, Denies malaise, Denies night sweats, Denies weakness, Denies weight gain, Denies weight loss, Denies other Eyes: Denies blind spots, Denies blurry vision, Denies bulging eyes, Denies change in vision, Denies double vision, Denies discharge, Denies dry eyes, Denies floaters, Denies irritation, Denies itchy eyes, Denies loss of vision, Denies pain, Denies requires corrective lenses, Denies sensitivity to light, Denies other Ears, Nose, Mouth, and Throat: Denies abnormal hearing, Denies bleeding gums, Denies bad breath, Denies change in voice, Denies dental pain, Denies difficulty swallowing, Denies dizziness, Denies dry mouth, Denies ear discharge , Denies ear pain, Denies facial pain, Denies headache(s), Denies hearing loss, Denies hoarseness, Denies lip swelling, Denies nosebleed, Denies mouth lesions, Denies mouth pain, Denies nasal congestion, Denies nasal discharge, Denies nasal obstruction, Denies nasal trauma, Denies neck lump, Denies neck pain, Denies nose pain, Denies pain with swallowing, Denies poor balance, Denies post nasal drip, Denies ringing in the ears, Denies sinus pain, Denies sinus pressure , Denies sore throat, Denies throat swelling, Denies tongue swelling, Denies other Cardiovascular: Reports leg swelling, Denies chest pain, Denies chest pain at rest, Denies chest pain with activity, Denies excessive sweating, Denies fainting, Denies fast heart rate, Denies foot swelling, Denies generalized swelling, Denies irregular heart rhythm, Denies leg pain with activity, Denies leg sores, Denies lightheadedness, Denies radiating jaw, neck or arm pain, Denies rapid, pounding, or irregular heartbeat, Denies shortness of breath, Denies shortness of breath with activity, Denies shortness of breath when lying down, Denies shortness of breath causing sudden awakening, Denies slow heart rate, Denies other Respiratory: Denies change in phlegm color, Denies chest congestion, Denies cough, Denies coughing up blood, Denies excessive phlegm production, Denies pain on inspiration, Denies pain with cough, Denies shortness of breath, Denies shortness of breath with activity, Denies snoring, Denies stridor, Denies wheezing, Denies other Gastrointestinal: Denies abdominal pain, Denies belching, Denies black, tarry stools, Denies bloating, Denies bright, red blood in stools, Denies change in bowel habits, Denies constant urge to pass stool, Denies change in stools, Denies coffee ground vomit, Denies constipation, Denies cramping, Denies difficulty swallowing, Denies excessive passing of gas, Denies feeling full early, Denies heartburn, Denies incontinent of stools, Denies loose stools, Denies nausea, Denies pain with swallowing, Denies vomiting, Denies vomiting blood, Denies other Genitourinary: Denies blood in semen, Denies blood in urine, Denies decreased urination, Denies difficulty urinating, Denies difficulty with ejaculations, Denies erectile dysfunction, Denies genital lesions, Denies genital pain, Denies painful urination, Denies side pain, Denies frequent nighttime urination , Denies painful ejaculations, Denies penile discharge, Denies scrotal swelling , Denies testicle lump, Denies testicle pain, Denies urinary frequency, Denies urinary hesitancy, Denies urinary incontinence, Denies urinary urgency, Denies other Skin/Breast: Reports other Neurologic: Reports weakness Endocrine: Denies cold intolerance, Denies excessive sweating, Denies flushing, Denies heat intolerance, Denies increased hunger, Denies increased thirst, Denies increased urination, Denies rapid, pounding, or irregular heartbeat, Denies other Allergic/Immunologic: Denies GI upset with certain foods, Denies hives, Denies itchy eyes, Denies lip swelling, Denies seasonal runny nose, Denies throat swelling, Denies tongue swelling, Denies wheezing, Denies other PMFSH - History History Provided By: Patient - Medical History Medical History: Medical History (Last Reviewed 05/04/18 @ 14:53 by Chito Pereira MD) Hyperlipidemia (Acute) Type 2 diabetes mellitus (Chronic) Hypertension (Chronic) AV fistula (Acute) GERD (gastroesophageal reflux disease) (Chronic) Kidney failure (Chronic) Vascular dialysis catheter in place (Chronic) CHF (congestive heart failure) Dialysis patient History of alcohol use History of illicit drug use Hx of transfusion Obstructive sleep apnea on CPAP Smoking hx TIA (transient ischemic attack) - Surgical History Surgical History: Surgical History (Last Reviewed 05/04/18 @ 14:53 by Chito Pereira MD) H/O left knee surgery Kidney transplant recipient H/O hernia repair (Resolved) H/O inguinal hernia repair (Resolved) S/P ACL repair (Resolved) - Family History Family History: Family History (Last Updated 05/04/18 @ 14:53 by Chito Pereira MD) Other Family history non-contributory - Social History I have reviewed the patient's Social History: Yes - Tobacco History Second Hand Smoke Exposure: Yes Tobacco Use In Past 30 Days: Yes Smoking Status: Former smoker Tobacco Type: Cigarettes - Alcohol History How Often Do You Have a Drink Containing Alcohol: 2 to 4 times a month - Substance Use History Substance History: Past History - Travel History Recent Travel in the [place] Within the Last 8 Weeks: No Recent Travel Out of the Country Within the Last 8 Weeks: No - Immunization History Tetanus Immunization: Unsure Hx Influenza Vaccine This Season: Yes Medications and Allergies Active Medications: Active Medications Acetaminophen (Tylenol) 650 mg PO UNSCH PRN PRN Reason: SEE LABEL COMMENTS Al Hydroxide/Mg Hydroxide (Milk Of Magnesia Liq) 30 ml PO Q12H PRN PRN Reason: Mild Constipation Amlodipine Besylate (Norvasc) 10 mg PO DAILY [facility] Atorvastatin Calcium (Lipitor) 40 mg PO DAILY [facility] Baclofen (Lioresal) 10 mg PO TID PRN PRN Reason: Cramps Bisacodyl (Dulcolax Supp) 10 mg RECTAL DAILY PRN PRN Reason: SEVERE CONSITIPATION Chlorhexidine Gluconate (Chlorhexidine 2% Cloth) 3 pack TOPICAL CLEARING TUB WORKER [facility] Stop: 05/04/18 23:59 Last Admin: 05/04/18 10:30 Dose: 3 pack Clonidine HCl (Catapres) 0.1 mg PO UNSCH PRN PRN Reason: SEE LABEL COMMENTS Diphenhydramine HCl (Benadryl) 25 mg PO UNSCH PRN PRN Reason: SEE LABEL COMMENTS Epoetin Vin (Epogen Inj) 4,000 unit IV.PUSH UNSCH PRN PRN Reason: SEE LABEL COMMENTS Fluticasone Propionate (Flonase Nasal [place]) 1 spray EACH NARE DAILY [facility] Gelatin (Gelfoam 12 Mm/7 Mm Topical) 1 foam TOPICAL PRN PRN PRN Reason: help stop bleeding from site Gentamicin Sulfate (Gentamicin Inj) 20 mg OTHER WITH DIALYSIS PRN PRN Reason: Dwell Gentamycin Lock Heparin Sodium (Porcine) (Heparin Inj) 0 units IV.FLUSH WITH DIALYSIS PRN PRN Reason: Flush each lumen Heparin Sodium (Porcine) (Heparin Inj) 5,000 units SQ Q8H [facility] Heparin Sodium (Porcine) (Heparin Inj) 8,000 units OTHER WITH DIALYSIS PRN PRN Reason: for machine prime Heparin Sodium (Porcine) (Heparin Inj) 1,000 units OTHER WITH DIALYSIS PRN PRN Reason: Dwell Heparin to Fill Catheter Hydralazine HCl (Apresoline) 25 mg PO TID [facility] Hydromorphone HCl (Dilaudid) 2 mg PO Q4H PRN PRN Reason: PAIN SCALE 6 TO 10 Lactated Ringer's (Lr 1000 Ml Inj) 1,000 mls @ 30 mls/hr IV.SIG .Q24H [facility] Stop: 05/05/18 10:14 Last Admin: 05/04/18 11:32 Dose: Not Given Sodium Chloride (Ns Inj) 500 mls @ 30 mls/hr IV.SIG .[id number] [facility] Stop: 05/05/18 03:39 Last Admin: 05/04/18 10:50 Dose: 30 mls/hr Albumin Human (Flexbumin 25% Inj) 100 mls @ 60 mls/hr IV.SIG WITH DIALYSIS PRN PRN Reason: hypotension / volume replace Sodium Chloride (Ns Inj) 1,000 mls @ 0 mls/hr OTHER .Q0M PRN PRN Reason: for prime and rinse back Sodium Chloride (Ns Inj) 1,000 mls @ 200 mls/hr OTHER .Q5H PRN PRN Reason: for dialyzer flush PRN Sodium Chloride (Ns Inj) 1,000 mls @ 0 mls/hr IV.CONT .Q0M PRN PRN Reason: hypotension / volume replace Insulin Detemir (Levemir Inj) 20 unit SQ DAILY [facility] Insulin Human Lispro (Humalog Insulin Correctional Sugar Inj) unit SQ BID [facility] ; Protocol Lactulose (Lactulose Liq) 30 ml PO DAILY PRN PRN Reason: SEVERE CONSITIPATION Levothyroxine Sodium (Synthroid) 25 mcg PO DAILY@0600 [facility] Mannitol (Mannitol Inj) 12.5 gm IV.PUSH UNSCH PRN PRN Reason: hypotension / volume replace Metoprolol Tartrate (Lopressor) 25 mg PO CLEARING TUB WORKER [facility] Stop: 05/04/18 23:59 Last Admin: 05/04/18 11:32 Dose: Not Given Miscellaneous Information ([facility] Nursing Information) 1 each OTHER UNSCH PRN PRN Reason: SEE LABEL COMMENTS Stop: 05/05/18 12:50 Morphine Sulfate (Morphine Inj) 2 mg IV.PUSH Q1H PRN PRN Reason: BREAKTHROUGH PAIN Mycophenolate Mofetil (Cellcept) 500 mg PO BID [facility] Nitroglycerin (Nitrostat Sl) 0.4 mg SL Q5M PRN PRN Reason: CHEST PAIN Non-Formulary Medication (Magnesium Gluconate [Magnesium Gluconate]) 500 mg PO BID [facility] Ondansetron HCl (Zofran Odt) 4 mg PO Q6H PRN PRN Reason: NAUSEA/VOMITING Ondansetron HCl (Zofran Inj) 4 mg IV.PUSH UNSCH PRN PRN Reason: NAUSEA OR VOMITING Oxycodone HCl (Roxicodone) 5 mg PO Q4H PRN PRN Reason: PAIN SCALE 1 TO 5 Pantoprazole Sodium (Protonix) 40 mg PO DAILY [facility] Povidone Iodine (Betadine 5% Antisepsis Kit) 1 applicatio EACH NARE CLEARING TUB WORKER [facility] Stop: 05/04/18 23:59 Last Admin: 05/04/18 11:00 Dose: 1 applicatio Prednisone (Deltasone) 20 mg PO DAILY [facility] Senna/Docusate Sodium (Aline-Colace) 1 tab PO BID [facility] Sennosides (Senokot) 17.2 mg PO Q12H PRN PRN Reason: Moderate Constipation Sodium Bicarbonate (Sodium Bicarbonate) 650 mg PO QID [facility] Sodium Chloride (Ns Flush) 5 ml IV.FLUSH PRN PRN PRN Reason: FLUSH AFTER USING IV ACCESS Sodium Chloride (Ns Flush) 5 ml IV.FLUSH PRN PRN PRN Reason: flush each lumen during HD Tacrolimus (Prograf) 1 mg PO BID [facility] Valganciclovir (Valcyte) 450 mg PO DAILY [facility] Vitamin B Complex/Vitamin C (Allbee C) 1 tab PO DAILY [facility] Vitamin D (Vitamin D3) 400 unit PO DAILY [facility] Allergies Allergy/AdvReac Type Severity Reaction Status Date / Time banana Allergy Severe HIVES Verified 05/04/18 11:02 beet Allergy Severe HIVES Verified 05/04/18 11:02 latex Allergy Severe Hives and Verified 05/04/18 11:02 rash peas Allergy Severe HIVES Verified 05/04/18 11:02 tomato Allergy Severe Hives Verified 05/04/18 11:02 Home Medications Medication Instructions Recorded Confirmed Type amlodipine 10 mg PO DAILY 01/12/18 05/04/18 History atorvastatin [Lipitor] 40 mg PO DAILY 01/12/18 05/04/18 History hydralazine 25 mg PO TID 01/12/18 05/04/18 History insulin glargine [Lantus U-100 20 unit SUB-Q DAILY 01/12/18 05/04/18 History Insulin] levothyroxine 25 mcg PO DAILY 01/12/18 05/04/18 History magnesium gluconate 500 mg PO BID 01/12/18 05/04/18 History pantoprazole [Protonix] 40 mg PO DAILY 01/12/18 05/04/18 History prednisone 20 mg PO DAILY 01/12/18 05/04/18 History sodium bicarbonate 650 mg PO QID 01/12/18 05/04/18 History tacrolimus 1 mg PO BID 01/12/18 05/04/18 History baclofen 10 mg PO TID PRN 04/18/18 05/04/18 History cholecalciferol (vitamin D3) 400 unit PO DAILY 04/18/18 05/04/18 History fluticasone [Flonase Allergy 1 spray INTRANASAL DAILY 04/18/18 05/04/18 History Relief] mycophenolate mofetil [CellCept] 500 mg PO BID 04/18/18 05/04/18 History ondansetron HCl [Zofran] 4 mg PO Q6-8H PRN 04/18/18 05/04/18 History valganciclovir 450 mg PO DAILY 04/18/18 05/04/18 History vitamin B complex 1 tab PO DAILY 04/18/18 05/04/18 History insulin lispro [Humalog U-100 See Protocol SUBCUT BID 05/04/18 05/04/18 History Insulin] Exam Vital signs: Vital Signs 05/04/18 11:26 05/04/18 12:49 05/04/18 13:00 Temperature 98.2 F 98.2 F Pulse Rate 65 68 68 Respiratory Rate 18 16 16 Blood Pressure 158/77 H 156/88 H 152/81 H Pulse Oximetry 95 99 98 05/04/18 13:15 05/04/18 13:30 05/04/18 14:25 Temperature 98.9 F Pulse Rate 64 62 53 L Respiratory Rate 16 16 15 Blood Pressure 143/76 H 141/76 H 116/56 L Pulse Oximetry 98 99 94 L Intake & Output 05/03/18 05/04/18 05/04/18 18:59 06:59 18:59 Intake Total 650 / 650 Output Total 50 / 50 Balance 600 / 600 Weight 73.5 kg Intake: Anesthesia Amount 650 / 650 Output: Estimated Blood Loss 50 / 50 Other: Weight On Admission 73.8 kg Narrative: GENERAL: Well-nourished, well-developed patient. SKIN: Warm and dry. HEAD: Normocephalic. EYES: No scleral icterus. No injection or drainage. NECK: Supple, trachea midline. No JVD or lymphadenopathy. CARDIOVASCULAR: Regular rate and rhythm without murmurs, gallops, or rubs. RESPIRATORY: Breath sounds equal bilaterally. No accessory muscle use. GASTROINTESTINAL: Abdomen soft, non-tender, nondistended. EXTREMITIES: 1+ edema around ankles, 2+ in the left arm NEUROLOGICAL: Awake, alert, and oriented x 3. Non-focal. Results - Lab Results 05/04/18 10:52 05/04/18 10:52 Most recent lab results Calcium 8.0 mg/dL (8.5-10.1) L 05/04/18 10:52 Assessment and Plan - Assessment (1) ESRD (end stage renal disease) on dialysis Code(s): N18.6 - End stage renal disease; Z99.2 - Dependence on renal dialysis Status: Chronic (2) Left arm swelling Code(s): M79.89 - Other specified soft tissue disorders Status: Acute (3) Seroma after procedure Status: Acute (4) Type 2 diabetes mellitus Code(s): E11.9 - Type 2 diabetes mellitus without complications Status: Chronic (5) Hypertension Code(s): I10 - Essential (primary) hypertension Status: Chronic - Plan Patient has surgery and seroma was drained, he is having some pain associated with surgery Continue to monitor left arm swelling Hemodialysis will be planned for tomorrow I adjusted his immunosuppressive medication as we are weaning them down.
[2018-05-04] MEDS: hydrALAZINE 25 MG Tablet PO SCH ×2 (17:34→17:36)
[2018-05-04] MEDS: Insulin NovoLOG Aspart Correctional Sugar Inj SQ SCH ×2 (17:37→21:00)
--- NOTE | 2018-05-04 18:04 | ECG ---
Date Performed: 05/04/2018 Time Performed: 10:48:08 PTAGE: 57 years EKG: Sinus rhythm LEFT AXIS DEVIATION ST DEVIATION AND MODERATE T-WAVE ABNORMALITY, CONSIDER ANTEROLATERAL ISCHEMIA ST DEVIATION AND MODERATE T-WAVE ABNORMALITY, CONSIDER INFERIOR ISCHEMIA ABNORMAL ECG PREVIOUS TRACING : 02/21/2018 09.27 Since the previous tracing, no significant change noted DOCTOR: Ty Cohen Interpretating Date/Time 05/04/2018 18:03:38
[2018-05-04] MEDS: Senna/Docusate Sodium 8.6/50 MG Tablet PO SCH (20:39)
[2018-05-04] MEDS ORDERED: Mycophenolate Mofetil 250 MG Capsule PO SCH (21:00)
[2018-05-04] MEDS ORDERED: MAGNESIUM GLUCONATE 500 MG PO SCH (21:00)
[2018-05-04] MEDS ORDERED: Insulin HumaLOG Lispro Correctional Sugar Inj SQ SCH (21:00)
[2018-05-05 04:09] LABS: Hematocrit 36.3 % (39.0-51.0); Hemoglobin 11.1 gm/dL (13.0-17.0); Mean Corpuscular Hemoglobin 25.2 pg (27.0-34.0); Mean Corpuscular Volume 82.6 fL (80.0-100.0); Mean Platelet Volume 7.9 fL (7.0-11.0); Platelet Count 227 th/mm3 (150-450); Red Cell Distribution Width 20.8 % (11.6-17.2)
[2018-05-05 04:24] LABS: Mean Corpuscular HGB Conc 30.5 % (32.0-36.0)
[2018-05-05 04:37] LABS: Calcium 8.2 mg/dL (8.5-10.1); Carbon Dioxide 24.3 meq/L (21.0-32.0); Potassium 5.1 meq/L (3.5-5.1)
[2018-05-05] MEDS ORDERED: Mycophenolate Mofetil 250 MG Capsule PO SCH (06:00)
[2018-05-05] MEDS ORDERED: predniSONE 5 MG Tablet PO SCH (09:00)
[2018-05-05] MEDS ORDERED: Insulin Detemir Inj 1,000 UNIT/10 ML Vial SQ SCH (09:00)
[2018-05-05] MEDS ORDERED: Vitamin B Complex/Vitamin C Tablet PO SCH (09:00)
[2018-05-05] MEDS ORDERED: predniSONE 10 MG Tablet PO SCH (09:00)
[2018-05-05] MEDS: Senna/Docusate Sodium 8.6/50 MG Tablet PO SCH (09:51)
[2018-05-05] MEDS: Insulin NovoLOG Aspart Correctional Sugar Inj SQ SCH ×2 (09:54→17:02)
[2018-05-05] MEDS: hydrALAZINE 25 MG Tablet PO SCH ×3 (09:55→15:38)
[2018-05-05] MEDS: amLODIPine 10 MG Tablet PO SCH ×2 (09:55→15:40)
--- NOTE | 2018-05-05 11:11 | P.PNVS ---
Subjective Post Op Day #: 1 Procedure: Axillary seroma drainage Subjective/Hospital Course: 57/M with a Hx of ESRD on HD Pt S/P LEFT Axillary seroma drainage near AVF AVF patent Left arm with improved swelling Prevena wound vac to L axillary region intact w/o hematoma or swelling Pain controlled Objective Vital Signs / I&O: Vital Signs 05/04/18 11:26 05/04/18 12:49 05/04/18 13:00 Temperature 98.2 F 98.2 F Pulse Rate 65 68 68 Respiratory Rate 18 16 16 Blood Pressure 158/77 H 156/88 H 152/81 H Pulse Oximetry 95 99 98 05/04/18 13:15 05/04/18 13:30 05/04/18 14:25 Temperature 98.9 F Pulse Rate 64 62 53 L Respiratory Rate 16 16 15 Blood Pressure 143/76 H 141/76 H 116/56 L Pulse Oximetry 98 99 94 L 05/04/18 16:00 05/04/18 16:04 05/04/18 17:40 Temperature 97.4 F L Pulse Rate 62 65 64 Respiratory Rate 18 Blood Pressure 134/69 Pulse Oximetry 98 05/04/18 18:15 05/04/18 19:00 05/04/18 20:00 Temperature 98.8 F Pulse Rate 67 65 66 Respiratory Rate 16 Blood Pressure 141/76 H Pulse Oximetry 98 98 05/04/18 21:00 05/04/18 22:00 05/04/18 23:00 Temperature Pulse Rate 64 65 65 Respiratory Rate Blood Pressure Pulse Oximetry 98 05/04/18 23:55 05/05/18 00:00 05/05/18 01:00 Temperature 97.3 F L Pulse Rate 63 62 66 Respiratory Rate 16 Blood Pressure 143/78 H Pulse Oximetry 99 05/05/18 01:41 05/05/18 03:00 05/05/18 04:00 Temperature 97.7 F Pulse Rate 64 63 69 Respiratory Rate 16 Blood Pressure 147/77 H Pulse Oximetry 98 99 05/05/18 05:00 05/05/18 06:00 05/05/18 07:00 Temperature Pulse Rate 82 69 66 Respiratory Rate Blood Pressure Pulse Oximetry 99 05/05/18 08:00 Temperature 97.6 F Pulse Rate 66 Respiratory Rate 18 Blood Pressure 148/77 H Pulse Oximetry 99 Intake & Output 11/01/1205/05/18 05/05/18 18:59 06:59 18:59 Intake Total 1130 / 1130 480 / 480 Output Total 50 / 50 100 / 100 Balance 1080 / 1080 380 / 380 Weight 73.5 kg 73.5 kg Intake: Oral 480 / 480 480 / 480 Anesthesia Amount 650 / 650 Output: Urine 100 / 100 Estimated Blood Loss 50 / 50 Other: Date of Last Bowel Movement 05/04/18 Weight On Admission 73.8 kg Exam: L arm w/ improved swelling Wound vac to L arm intact w/o swelling or hematoma Palpable L radial pulse 2+ Strong 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 Differential Comment Auto diff final PT 11.3 INR 1.1 APTT Sodium 140 Potassium 4.7 Chloride 108 H Carbon Dioxide 22.7 Anion Gap 9 BUN 51 H Creatinine 4.99 H Estimated GFR 15 L POC Glucose Random Glucose 170 H Calcium 8.0 L Blood Type Antibody Screen 05/04/18 05/04/18 05/04/18 10:52 10:52 13:21 WBC RBC Hgb Hct MCV MCH MCHC RDW Plt Count MPV Neut % (Auto) Lymph % (Auto) [place] % (Auto) Eos % (Auto) Baso % (Auto) Neut # (Auto) Lymph # (Auto) [place] # (Auto) Eos # (Auto) Baso # (Auto) WBC Differential Differential Comment PT INR APTT 29.9 Sodium Potassium Chloride Carbon Dioxide Anion Gap BUN Creatinine Estimated GFR POC Glucose 167 H Random Glucose Calcium Blood Type O Positive Antibody Screen Negative 05/04/18 05/05/18 05/05/18 19:55 03:35 03:35 WBC 8.0 RBC 4.40 L Hgb 11.1 L Hct 36.3 L MCV 82.6 MCH 25.2 L MCHC 30.5 L RDW 20.8 H Plt Count 227 MPV 7.9 Neut % (Auto) Lymph % (Auto) [place] % (Auto) Eos % (Auto) Baso % (Auto) Neut # (Auto) Lymph # (Auto) [place] # (Auto) Eos # (Auto) Baso # (Auto) WBC Differential Differential Comment PT INR APTT Sodium 136 Potassium 5.1 Chloride 103 Carbon Dioxide 24.3 Anion Gap 9 BUN 60 H Creatinine 5.74 H Estimated GFR 12 L POC Glucose 325 H Random Glucose 251 H Calcium 8.2 L Blood Type Antibody Screen 05/05/18 07:51 WBC RBC Hgb Hct MCV MCH MCHC RDW Plt Count MPV Neut % (Auto) Lymph % (Auto) [place] % (Auto) Eos % (Auto) Baso % (Auto) Neut # (Auto) Lymph # (Auto) [place] # (Auto) Eos # (Auto) Baso # (Auto) WBC Differential Differential Comment PT INR APTT Sodium Potassium Chloride Carbon Dioxide Anion Gap BUN Creatinine Estimated GFR POC Glucose 218 H Random Glucose Calcium Blood Type Antibody Screen Assessment and Plan - Assessment (1) ESRD (end stage renal disease) on dialysis Code(s): N18.6 - End stage renal disease; Z99.2 - Dependence on renal dialysis Status: Chronic (2) Left arm swelling Code(s): M79.89 - Other specified soft tissue disorders Status: Acute - Plan 57/M s/p Axillary seroma drainage AVF patent Pain controlled Plan Pt clear for D/C after HD Leave L UE Prevena wound vac- Will remove in our out pt clinic on POD 7 Arranged out pt f/u Corinne Meadows [employer] [facility] [phone] Discharge Planning: Today after HD
[2018-05-05] MEDS ORDERED: Heparin - SQ 10,000 UNITS/ML Vial SQ SCH (12:00)
--- NOTE | 2018-05-05 12:05 | P.DS ---
Discharge Summary - Admission Date 05/04/18 12:16 - Admission Diagnosis (1) ESRD (end stage renal disease) on dialysis (2) Left arm swelling (3) AV fistula - Discharge Date 05/05/18 - Discharge Diagnosis (1) ESRD (end stage renal disease) on dialysis Status: Chronic (2) Left arm swelling Status: Chronic (3) Seroma after procedure Status: Acute (4) AV fistula Status: Chronic - Summary Brief History from admission: 57 yo male with L brach-ax and swelling and mass in L UE, no evidence of PSA on duplex or fistulogram. To OR for access revision. Procedure: Axillary seroma drainage Significant Findings: wound vac to L UE intact w/o hematoma or swelling palpable distal pulses noted Swelling improved Abnormal Lab Results 05/04/18 05/04/18 05/04/18 10:52 13:21 19:55 WBC RBC Hgb Hct MCV MCH MCHC RDW Plt Count MPV Sodium Potassium Chloride Carbon Dioxide Anion Gap BUN Creatinine Estimated GFR POC Glucose 167 H 325 H Random Glucose Calcium Blood Type O Positive Antibody Screen Negative 05/05/18 05/05/18 05/05/18 03:35 03:35 07:51 WBC 8.0 RBC 4.40 L Hgb 11.1 L Hct 36.3 L MCV 82.6 MCH 25.2 L MCHC 30.5 L RDW 20.8 H Plt Count 227 MPV 7.9 Sodium 136 Potassium 5.1 Chloride 103 Carbon Dioxide 24.3 Anion Gap 9 BUN 60 H Creatinine 5.74 H Estimated GFR 12 L POC Glucose 218 H Random Glucose 251 H Calcium 8.2 L Blood Type Antibody Screen Hospital Course: 57 yo male with L brach-ax and swelling and mass in L UE no evidence of PSA on duplex or fistulogram. Pt s/p Axillary seroma drainage, doing well pain controlled UE warm w/ motor intact Pt clear for D/C post HD Arranged out pt f/u Pt d/c'd w/Prevena wound vac in place- will remove on POD 7 (out pt) E -Forcse reviewed- Pain medication was prescribed for post operative pain management - Discharge Instructions Any questions or concerns: Call [facility] at [facility] [phone] Discharge Plan - Discharge Disposition Patient Disposition: 01 Discharge Home - Discharge Condition Condition: Good - Discharge Order Discharge Orders: Discharge Order (Routine); Ordered 05/05/18 Ordered By: Corinne Meadows - Physicians Team Primary Care Provider: Primary Care Letty Miller Attending Provider: Alli Sauceda Other Providers: Chito Pereira MD - Rxs /Orders / Referrals /Forms Prescriptions: New oxycodone-acetaminophen [Percocet] 5-325 mg Tablet 1 tab PO Q4-6H PRN (Reason: Pain) Qty: 20 RF: 0 Continue amlodipine 10 mg Tablet 10 mg PO DAILY atorvastatin [Lipitor] 20 mg Tablet 40 mg PO DAILY baclofen 10 mg Tablet 10 mg PO TID PRN (Reason: Cramps) cholecalciferol (vitamin D3) 400 unit Tablet 400 unit PO DAILY fluticasone [Flonase Allergy Relief] 50 mcg/actuation [place],Suspension 1 spray INTRANASAL DAILY hydralazine 10 mg Tablet 25 mg PO TID insulin glargine [Lantus U-100 Insulin] 100 unit/mL Solution 20 unit SUB-Q DAILY insulin lispro [Humalog U-100 Insulin] 100 unit/mL Solution See Protocol subcut BID levothyroxine 50 mcg Capsule 25 mcg PO DAILY magnesium gluconate 27.5 mg (500 mg) Tablet 500 mg PO BID mycophenolate mofetil [CellCept] 250 mg Capsule 500 mg PO BID ondansetron HCl [Zofran] 4 mg Tablet 4 mg PO Q6-8H PRN (Reason: Nausea) pantoprazole [Protonix] 40 mg Tablet,Delayed Release (Dr/Ec) 40 mg PO DAILY prednisone 10 mg Tablet 20 mg PO DAILY sodium bicarbonate 325 mg Tablet 650 mg PO QID tacrolimus 5 mg Capsule 1 mg PO BID valganciclovir 450 mg Tablet 450 mg PO DAILY vitamin B complex Tablet 1 tab PO DAILY Referrals: Primary Care Letty Miller [Primary Care Provider] - See Instructions Alli Sauceda MD [Physician] - See Instructions (Follow up on 05/11/18 at 2:00 Post Op day 7 For wound vac removal ) - Discharge Instructions Patient Printed Instructions: Dialysis Diet (GEN), Arteriovenous Graft Placement for Hemodialysis (DC), End Stage Kidney Disease (GEN) - Post Discharge Care Plan Care Plan Goals: Discharge Care Plan Goals After Vascular Surgery Contact: Please call [phone] if you have any problems or have questions regarding your hospitalization. Directions to Meet Your Goals: 1. Diet: * You may resume a regular diet as you were eating at home before your admission. 2. Activity: * Increase your activity level gradually. * Keep surgical extremities elevated when at rest. This will help limit the swelling, bruising and discomfort normally present after surgery. * Walking is a good form of light exercise. Go for a walk at least 3 times per day. * No heavy lifting (lifting over 10 pounds) for at least 4 weeks from surgery. * Check with your surgeon to ensure when you are cleared for heavy lifting and full-intensity exercising. * Your strength will gradually improve. * No driving or operating motorized vehicles while on prescription pain medications. * No swimming until wounds fully healed. * Return to work when cleared by MD/ROB/JOSE ALEJANDRO. 3. Bathing: Shower daily. * Gently let soap and water run over your incision and pat dry. Do not scrub the incision/wound. * Don't soak in a bath or submerge your incision in water until your incision is healed and evaluated by your physician at follow-up (usually two weeks). 4. Wound Care: INCISION SITE CARE INSTRUCTIONS: * You may leave your incision open to air. * Keep your incision clean and dry, unless showering. See above. * Moisture near the incision will cause the wound to open. * No lotions, creams, ointments, or powders on incisions until they are well- healed. * If you have glue over the incision(s), allow it to fall off naturally in 1-3 weeks * If present, fabian/sutures will be removed 2-3 weeks after surgery during your follow-up clinic visit. * If present, change dressing/bandage when soaked/soiled as needed. * Observe wound daily, checking for signs and symptoms of infection including: foul odor, drainage from the incision, increased redness, increased pain at incision, or increased swelling. 5. Pain Control: Expect post-operative pain for 1-4 weeks after surgery. Your pain will improve gradually. * You may have been provided with a prescription for pain medication. Please take as directed, and be aware of side effects such as drowsiness, constipation and mild stomach discomfort. Pain pills on an empty stomach can cause nausea , so eat a small amount of food, such as crackers, when taking these pills. * Take [id number] stool softeners (Colace or Senna) with your prescribed pain medication. * Acetaminophen (500mg every 6 hours) or Ibuprofen (400mg every 6 hours) may be used in conjunction with narcotics to relieve pain. DO NOT take more than 4 grams (4000mg) of Tylenol in one day, as this can harm your liver. DO NOT take ibuprofen IF: you have an allergy to non-steroidal anti-inflammatory medications, you are taking Coumadin, you have been told you have kidney problems, or you have a history of gastrointestinal bleeding or ulcers. DO NOT take more than 3.2 grams (3200mg) of ibuprofen in one day. * You may also find relief from using heat packs or pads or ice packs. 6. Bowel Regimen for Constipation: * People who undergo surgery are likely to develop post-operative constipation. Exposure to narcotics and changes in diet, fluid intake, and physical activity are known contributors to constipation. We recommend routine stool softeners and/ or laxatives after surgery for most patients. Start by taking one medication. You can increase as directed to relieve constipation. Stop taking these medications if you develop diarrhea. These medications are available over-the- counter and do not require a prescription: * Colace is a stool softener. We recommend starting at 100mg orally twice per day as needed for soft stools and increase to a maximum of 200mg twice daily as needed. * Senna is a laxative that works by keeping water in the intestine to help stool move along the intestinal tract. Take 1 tablet daily as needed for soft stool and increase to a maximum of 2 tablets twice daily as needed. Take Senna with two full glasses of water each time. * Miralax, Dulcolax and Milk of Magnesia are other svbr-nfv-obuaqhw laxatives that may be used as needed for post-operative constipation. * Drink 6-8 glasses of water per day. * Consume 15-30g of fiber per day: * Metamucil powder, 1-2 tablespoons 1-2 times/day OR Benefiber powder, 2 tablespoons 4 times/day. * Avoid straining. 7. Follow-Up: Do Not miss your follow-up appointment. Keep up with all your appointments and yearly check ups If you have any of the following symptoms please call [phone] immediately: Excessive swelling of the affected extremity Sudden onset of severe or unusual pain in the affected extremity Pain that gets worse or is not relieved by medication Warmth, redness, or swelling in the skin around the wound Foul drainage from incision Extensive bruising or discoloration Wound that opens up or pulls apart Fever above 101.5F or shaking chills Nausea or vomiting Severe diarrhea or severe constipation Dizziness or fainting Chest pain, shortness of breath, or increased work of breathing Weight gain >10 lbs over 3-4 days Inability to urinate for more than 6 hours Cloudy or foul smelling urine Urge to urinate more often than usual Symptoms to Report to Your Doctor: Temperature 101F or higher Pain uncontrolled by medication Drainage or foul odor from incision Extensive bruising or discoloration Chest pain Shortness of breath Nausea, vomiting or dizziness Call 911: Call 911 right away if you have: Sudden onset of chest pain that is not relieved by medications Shortness of breath
--- NOTE | 2018-05-05 13:49 | P.PNNP ---
Subjective Interval history: Seen during dialysis Physical Exam Vital signs: Vital Signs 05/04/18 14:25 05/04/18 16:00 05/04/18 16:04 Temperature 98.9 F 97.4 F L Pulse Rate 53 L 62 65 Respiratory Rate 15 18 Blood Pressure 116/56 L 134/69 Pulse Oximetry 94 L 98 05/04/18 17:40 05/04/18 18:15 05/04/18 19:00 Temperature Pulse Rate 64 67 65 Respiratory Rate Blood Pressure Pulse Oximetry 98 05/04/18 20:00 05/04/18 21:00 05/04/18 22:00 Temperature 98.8 F Pulse Rate 66 64 65 Respiratory Rate 16 Blood Pressure 141/76 H Pulse Oximetry 98 05/04/18 23:00 05/04/18 23:55 05/05/18 00:00 Temperature 97.3 F L Pulse Rate 65 63 62 Respiratory Rate 16 Blood Pressure 143/78 H Pulse Oximetry 98 99 05/05/18 01:00 05/05/18 01:41 05/05/18 03:00 Temperature Pulse Rate 66 64 63 Respiratory Rate Blood Pressure Pulse Oximetry 98 05/05/18 04:00 05/05/18 05:00 05/05/18 06:00 Temperature 97.7 F Pulse Rate 69 82 69 Respiratory Rate 16 Blood Pressure 147/77 H Pulse Oximetry 99 05/05/18 07:00 05/05/18 08:00 05/05/18 09:00 Temperature 97.6 F Pulse Rate 66 64 70 Respiratory Rate 18 Blood Pressure 148/77 H Pulse Oximetry 99 99 05/05/18 10:00 05/05/18 11:00 05/05/18 11:44 Temperature Pulse Rate 68 64 81 Respiratory Rate Blood Pressure Pulse Oximetry 99 Intake & Output 05/04/18 05/05/18 05/05/18 18:59 06:59 18:59 Intake Total 1130 / 1130 480 / 480 Output Total 50 / 50 100 / 100 Balance 1080 / 1080 380 / 380 Weight 73.5 kg 73.5 kg Intake: Oral 480 / 480 480 / 480 Anesthesia Amount 650 / 650 Output: Urine 100 / 100 Estimated Blood Loss 50 / 50 Other: Date of Last Bowel Movement 05/04/18 Weight On Admission 73.8 kg Narrative: GENERAL: Well-nourished, well-developed patient. SKIN: Warm and dry. HEAD: Normocephalic. EYES: No scleral icterus. No injection or drainage. NECK: Supple, trachea midline. No JVD or lymphadenopathy. CARDIOVASCULAR: Regular rate and rhythm without murmurs, gallops, or rubs. RESPIRATORY: Breath sounds equal bilaterally. No accessory muscle use. GASTROINTESTINAL: Abdomen soft, non-tender, nondistended. EXTREMITIES: 1+ edema around ankles, 2+ in the left arm NEUROLOGICAL: Awake, alert, and oriented x 3. Non-focal. Assessment and Plan - Assessment (1) ESRD (end stage renal disease) on dialysis Code(s): N18.6 - End stage renal disease; Z99.2 - Dependence on renal dialysis Status: Chronic (2) Left arm swelling Code(s): M79.89 - Other specified soft tissue disorders Status: Chronic (3) Seroma after procedure Status: Acute (4) Type 2 diabetes mellitus Code(s): E11.9 - Type 2 diabetes mellitus without complications Status: Chronic (5) Hypertension Code(s): I10 - Essential (primary) hypertension Status: Chronic - Plan Patient has surgery and seroma was drained, he is having some pain associated with surgery Continue to monitor left arm swelling Hemodialysis proceeding noted 3.5 L ultrafiltration as tolerated I adjusted his immunosuppressive medication as we are weaning them down.
[2018-05-05 16:18] VITALS: RESP 16; TEMP 98.3
[2018-05-05 17:09] VITALS: BP 156/76; PULSE 70; O2SAT 98
== END 2018-05-05 18:03 | disposition home or self-care (01) ==
LOC: HSDC 09:23 → HSDI 09:23 → HCPC 14:20
PROVIDERS: ADMIT Surgery; ATTEND Surgery

== ENCOUNTER 2018-08-09 10:57 | Observation (INO) ==
[2018-08-09] MEDS ORDERED: Chlorhexidine Gluconate 2% 1 Pack (2 Cloths) TOPICAL ONE (11:33)
[2018-08-09] MEDS ORDERED: Metoprolol Tartrate 25 MG Tablet PO ONE (11:33)
[2018-08-09] MEDS ORDERED: Sodium Chlor 0.9% Inj 500 ML IV.SIG SCH (12:00)
--- NOTE | 2018-08-09 12:49 | P.HPVS ---
History of Present Illness Chief Complaint: L axillary seroma History of Present Illness: 57 yo male with refractory L axillary seroma s/p drainage and excision. Ipsilateral to functioning AVG. - Inpatient Certification If this patient has been admitted as an Inpatient: I certify that the inpatient services were ordered in accordance with Medicare regulations governing the order. This includes certification that hospital inpatient services are reasonable and necessary and in the case of services not specified as inpatient-only under 42 CFR 419.22(n), that they are appropriately provided as inpatient services in accordance to with the 2-midnight benchmark under 43 CFR 412.3(e) Estimated Total Length of Stay (Days): 2 Plans for Post Hospital Care: Home Review of Systems All other systems reviewed negative except as stated in HPI PMFSH - History History Provided By: Patient - Medical History Medical History: Medical History (Last Reviewed 08/09/18 @ 11:30 by Tracy Rose) Hyperlipidemia (Acute) Type 2 diabetes mellitus (Chronic) Hypertension (Chronic) AV fistula (Chronic) GERD (gastroesophageal reflux disease) (Chronic) Kidney failure (Chronic) CHF (congestive heart failure) Dialysis patient History of alcohol use History of illicit drug use Hx of transfusion Obstructive sleep apnea on CPAP Smoking hx TIA (transient ischemic attack) - Surgical History Surgical History: Surgical History (Last Reviewed 08/09/18 @ 11:31 by Tracy Rose) H/O left knee surgery Kidney transplant recipient H/O hernia repair (Resolved) H/O inguinal hernia repair (Resolved) S/P ACL repair (Resolved) - Family History Family History: Family History (Last Reviewed 08/09/18 @ 11:31 by Tracy Rose) Other Family history non-contributory - Tobacco History Second Hand Smoke Exposure: Yes Smoking Status: Former smoker Tobacco Type: Cigarettes - Alcohol History How Often Do You Have a Drink Containing Alcohol: Never - Substance Use History Substance History: Past History - Travel History Recent Travel in the [place] Within the Last 8 Weeks: No Recent Travel Out of the Country Within the Last 8 Weeks: No Medications and Allergies Active Medications: Active Medications Lactated Ringer's (Lr 1000 Ml Inj) 1,000 mls @ 30 mls/hr IV.SIG .Q24H KELSIE Stop: 08/10/18 11:44 Last Admin: 08/09/18 12:32 Dose: Not Given Allergies Allergy/AdvReac Type Severity Reaction Status Date / Time banana Allergy Severe HIVES Verified 08/09/18 11:31 diaz Allergy Severe Hives Verified 08/09/18 11:31 beet Allergy Severe HIVES Verified 08/09/18 11:31 latex Allergy Severe Hives and Verified 08/09/18 11:31 rash peas Allergy Severe HIVES Verified 08/09/18 11:31 tomato Allergy Severe Hives Verified 08/09/18 11:31 Home Medications Medication Instructions Recorded Confirmed Type amlodipine 10 mg PO DAILY 01/12/18 08/09/18 History atorvastatin [Lipitor] 40 mg PO DAILY 01/12/18 08/09/18 History hydralazine 10 mg PO TID 01/12/18 08/09/18 History insulin glargine [Lantus U-100 20 unit SUB-Q DAILY 01/12/18 08/09/18 History Insulin] magnesium gluconate 500 mg PO DAILY 01/12/18 08/09/18 History pantoprazole [Protonix] 40 mg PO DAILY 01/12/18 08/09/18 History prednisone 20 mg PO DAILY 01/12/18 08/09/18 History sodium bicarbonate 650 mg PO QID 01/12/18 08/09/18 History tacrolimus 1 mg PO BID 01/12/18 08/09/18 History baclofen 10 mg PO DAILY PRN 04/18/18 08/09/18 History cholecalciferol (vitamin D3) 400 unit PO DAILY 04/18/18 08/09/18 History fluticasone [Flonase Allergy 1 spray INTRANASAL DAILY 04/18/18 08/09/18 History Relief] mycophenolate mofetil [CellCept] 500 mg PO DAILY 04/18/18 08/09/18 History ondansetron HCl [Zofran] 4 mg PO Q6-8H PRN 04/18/18 08/09/18 History valganciclovir 450 mg PO DAILY 04/18/18 08/09/18 History vitamin B complex [B-Complex] 1 tab PO DAILY 04/18/18 08/09/18 History insulin lispro [Humalog U-100 See Protocol SUBCUT BID 05/04/18 08/09/18 History Insulin] metoprolol succinate 100 mg PO DAILY 06/16/18 08/09/18 History furosemide [Lasix] 20 mg PO DAILY 07/27/18 08/09/18 History levothyroxine 25 mcg PO DAILY 07/28/18 08/09/18 History Physical Exam Vital Signs / I&O: Vital Signs 08/09/18 12:08 Temperature 97.8 F Pulse Rate 65 Respiratory Rate 18 Blood Pressure 149/88 H Pulse Oximetry 95 Intake & Output 08/08/18 08/09/18 08/09/18 18:59 06:59 18:59 Weight 70.7 kg Other: Weight On Admission 70.7 kg Neuro: alert, no distress HEENT: NC./AT Heart: reg rate Lungs: clear B Abdomen: NT Extremities: edematous L UE Laboratory Results - last 24 hr 08/09/18 12:05 POC Glucose 238 H Caprini VTE Risk Assessment Caprini VTE Risk Assessment: No/Low Risk (score <= 1) (intraop heparin) Caprini Risk Assessment Model: Point Value = 1 Point Value = 2 Point Value = 3 Point Value = 5 Age 41-60 Minor surgery BMI > 25 kg/m2 Swollen legs Varicose veins or History of unexplained or recurrent spontaneous Oral contraceptives or hormone replacement Sepsis (< 1 month) Serious lung disease, including pneumonia (< 1 month) Abnormal pulmonary function Acute myocardial infarction Congestive heart failure (< 1 month) History of inflammatory bowel disease Medical patient at bed rest Age 61-74 Arthroscopic surgery Major open surgery (> 45 min) Laparoscopic surgery (> 45 min) Malignancy Confined to bed (> 72 hours) Immobilizing plaster cast Central venous access Age >= 75 History of VTE Family history of VTE Factor V Leiden Prothrombin [id number] Lupus anticoagulant Anticardiolipin antibodies Elevated serum homocysteine Heparin-induced thrombocytopenia Other congenital or acquired thrombophilia Stroke (< 1 month) Elective arthroplasty Hip, pelvis, or leg fracture Acute spinal cord injury (< 1 month) Prophylaxis Regimen: Total Risk Factor Score Risk Level Prophylaxis Regimen 0-1 Low Early ambulation 2 Moderate Order ONE of the following: *Sequential Compression Device (SCD) *Heparin 5000 units SQ BID 3-4 Higher Order ONE of the following medications: *Heparin 5000 units SQ TID *Enoxaparin/Lovenox 40 mg SQ daily (WT < 150 kg, CrCl > 30 mL/min) *Enoxaparin/Lovenox 30 mg SQ daily (WT < 150 kg, CrCl > 10-29 mL/min) *Enoxaparin/Lovenox 30 mg SQ BID (WT < 150 kg, CrCl > 30 mL/min) AND/OR *Sequential Compression Device (SCD) 5 or more Highest Order ONE of the following medications: *Heparin 5000 units SQ TID (Preferred with Epidurals) *Enoxaparin/Lovenox 40 mg SQ daily (WT < 150 kg, CrCl > 30 mL/min) *Enoxaparin/Lovenox 30 mg SQ daily (WT < 150 kg, CrCl > 10-29 mL/min) *Enoxaparin/Lovenox 30 mg SQ BID (WT < 150 kg, CrCl > 30 mL/min) AND *Sequential Compression Device (SCD) Assessment and Plan - Assessment (1) ESRD (end stage renal disease) on dialysis Code(s): N18.6 - End stage renal disease; Z99.2 - Dependence on renal dialysis Status: Chronic (2) Left arm swelling Code(s): M79.89 - Other specified soft tissue disorders Status: Chronic (3) Seroma after procedure Status: Acute - Plan L UE fistulogram, access revision Discussed option of access ligation which he doesn't want at present
[2018-08-09] MEDS ORDERED: Insulin NovoLIN Regular Correctional Sugar Inj ONE (12:58)
[2018-08-09] MEDS ORDERED: Bupivacaine PF 0.5% Inj 10 ML Vial ONE (13:15)
[2018-08-09] MEDS ORDERED: Heparin 10,000 UNITS/10 ML Vial (for IV use) ONE (13:15)
[2018-08-09] MEDS ORDERED: Heparin/NS PF Inj 500 ML ONE (13:15)
[2018-08-09] MEDS ORDERED: Protamine Sulfate Inj 50 MG/5 ML Vial ONE (13:15)
[2018-08-09] MEDS ORDERED: Sodium Chlor 0.9% Inj 250 ML ONE (13:24)
[2018-08-09] MEDS ORDERED: Thrombin Topical 20,000 UNIT Spray Kit TOPICAL ONE (13:25)
[2018-08-09] MEDS ORDERED: Neostigmine Inj 5 MG/5 ML Syringe IV.PUSH ONE (13:36)
[2018-08-09] MEDS ORDERED: Glycopyrrolate Inj 1 MG/5 ML Syringe IV.PUSH ONE (13:36)
[2018-08-09] MEDS ORDERED: Lidocaine PF 1% Inj 5 ML Syringe INFILTRATN ONE (13:36)
[2018-08-09] MEDS ORDERED: Sodium Chlor 0.9% Inj 250 ML IV.CONT ONE (13:36)
[2018-08-09] MEDS ORDERED: Iohexol 300 MG/ML 50 ML Vial (for Rad Diag) IVCONTRAST ONE (15:15)
[2018-08-09] MEDS ORDERED: fentaNYL Citrate Inj 100 MCG/2 ML Ampul ONE (15:17)
--- NOTE | 2018-08-09 15:44 | P.OP ---
- Preoperative Diagnosis (1) ESRD (end stage renal disease) on dialysis (2) Left arm swelling (3) Seroma after procedure - Postoperative Diagnosis (1) ESRD (end stage renal disease) on dialysis (2) Left arm swelling (3) Seroma after procedure Date of procedure: 08/09/18 Procedure: 1. Fistulogram 2. Axillary vein stent (7x50 Viabahn) 3. Seroma evacuation Implants: 7x50 Viabahn in axillary vein Anesthesia: GETA Surgeon: Alli Sauceda MD Center Director Lead Teacher: Alli Reed Pathology: none sent Operation and Findings: seroma with re-formed cavity outflow vein stenosis, + stent If seroma recurs will need access ligation
[2018-08-09] MEDS ORDERED: Bisacodyl 10 MG Supp RECTAL PRN (15:45)
[2018-08-09] MEDS ORDERED: Baclofen 10 MG Tablet PO PRN (15:46)
[2018-08-09] MEDS ORDERED: *Ondansetron Inj 4 MG/2 ML Vial PERIprocedural Use ONLY ONE (16:07)
[2018-08-09] MEDS ORDERED: *morphine SULFATE 4 MG/ML PERIprocedure ONLY ONE ×2 (16:11→16:24)
[2018-08-09] MEDS ORDERED: Dextrose 50% in Water 50 ML Vial IV.PUSH PRN (16:39)
--- NOTE | 2018-08-09 17:21 | MP ---
cc: Alli Sauceda MD DATE OF OPERATION: 08/09/2018 PREOPERATIVE DIAGNOSES: Left axillary seroma, distal stenosis. POSTOPERATIVE DIAGNOSES: Left axillary seroma, distal stenosis. PROCEDURES PERFORMED: 1. Left upper extremity fistulogram. 2. Stent of axillary vein with 7 x 50 Viabahn. 3. Seroma excision. ATTENDING SURGEON: Alli Sauceda MD LAB CLERK SURGEON: Alli Reed ANESTHESIA: General. INDICATIONS FOR PROCEDURE: Mr. Gabriel is a 57-year-old gentleman with left upper extremity seroma and a functioning access. He was taken to the operating room for angiographic evaluation of the fistula as there was presumed outflow stenosis. He also had a seroma excision. DESCRIPTION OF PROCEDURE: After informed consent, the patient was taken to the operating room and placed supine on the operating table. An appropriate timeout was taken to ensure the patient's identity, operative site and planned procedure. The administration of 1 gram of vancomycin was initiated prior to skin incision and will be discontinued after single preoperative dose. Vancomycin was chosen because of the patient's end-stage renal disease. Everyone in the room agreed with the procedure. His left arm and chest were prepped and draped in standard sterile fashion. A 21-gauge micropuncture needle was used to access the fistula, subsequently using Seldinger technique for a micropuncture sheath through which fistulogram was obtained. This showed an axillary vein outflow stenosis. Then, a 0.035 Storq wire was advanced over the micropuncture sheath which was exchanged for a 7-[place] sheath. The Storq was exchanged using the catheter for an 0.018 wire and then the area of concern was stented with a 7 x 50 Viabahn which was postdilated to 6 mm. Completion angiogram showed excellent result without any recoil extravasation. The wire catheter and sheath were removed, and the fistulotomy was closed. The fistulotomy was closed with a 4-0 Prolene suture. The axillary incision was then opened. The seroma capsule was encountered. It was identified. The cavity was evacuated and the capsule was excised. Bovie electrocautery was then used to debride the edges, and the wound was made hemostatic. The wound was then closed with a series of 2-0 Polysorb and 2-0 nylon. Sponge and needle counts were correct at the end of the case. I was present and scrubbed and performed the entire procedure. MD CHEL Garcia/mimi/musa , 04:34 PM , 04:41 PM [facility]
[2018-08-09] MEDS: hydrALAZINE 10 MG Tablet PO SCH (17:30)
[2018-08-09] MEDS: Insulin NovoLOG Aspart Correctional Sugar Inj SQ SCH (18:35)
[2018-08-09] MEDS ORDERED: Insulin HumaLOG Lispro Correctional Sugar Inj SQ SCH (21:00)
[2018-08-09] MEDS: Senna/Docusate Sodium 8.6/50 MG Tablet PO SCH (22:20)
[2018-08-10 06:11] LABS: Calcium 7.9 mg/dL (8.5-10.1); Carbon Dioxide 21.5 meq/L (21.0-32.0); Potassium 5.5 meq/L (3.5-5.1)
[2018-08-10 06:16] LABS: Hematocrit 37.9 % (39.0-51.0); Hemoglobin 12.1 gm/dL (13.0-17.0); Mean Corpuscular HGB Conc 31.9 % (32.0-36.0); Mean Corpuscular Hemoglobin 25.2 pg (27.0-34.0); Mean Corpuscular Volume 79.2 fL (80.0-100.0); Mean Platelet Volume 7.9 fL (7.0-11.0); Platelet Count 208 th/mm3 (150-450); Red Blood Count 4.79 mil/mm3 (4.50-5.90); Red Cell Distribution Width 18.8 % (11.6-17.2); White Blood Count 10.9 th/mm3 (4.0-11.0)
[2018-08-10] MEDS: Insulin NovoLOG Aspart Correctional Sugar Inj SQ SCH ×6 (06:42→21:08)
[2018-08-10] MEDS: Sodium Bicarbonate 650 MG Tablet PO SCH ×4 (08:08→21:10)
[2018-08-10] MEDS: Senna/Docusate Sodium 8.6/50 MG Tablet PO SCH ×2 (08:08→21:10)
[2018-08-10] MEDS ORDERED: Sod Chloride 0.9% Inj 1,000 ML OTHER PRN ×2 (08:33)
[2018-08-10] MEDS ORDERED: Sod Chloride 0.9% Inj 1,000 ML IV.CONT PRN (08:33)
[2018-08-10] MEDS ORDERED: Albumin Human 25% Inj 100 ML IV.SIG PRN (08:33)
[2018-08-10] MEDS ORDERED: Heparin 10,000 UNITS/10 ML Vial (for IV use) OTHER PRN ×2 (08:33)
[2018-08-10] MEDS ORDERED: Gelatin 12 MM/7 MM Topical Foam TOPICAL PRN (08:33)
[2018-08-10] MEDS ORDERED: Acetaminophen 325 MG Tablet PO PRN (08:33)
[2018-08-10] MEDS ORDERED: amLODIPine 10 MG Tablet PO SCH (09:00)
[2018-08-10] MEDS ORDERED: Furosemide 20 MG Tablet PO SCH (09:00)
[2018-08-10] MEDS: hydrALAZINE 10 MG Tablet PO SCH ×3 (09:00→18:09)
[2018-08-10] MEDS ORDERED: predniSONE 20 MG Tablet PO SCH (09:00)
[2018-08-10] MEDS ORDERED: [UNRECOGNIZED DRUG - OTHER] PO SCH (09:00)
[2018-08-10] MEDS: Insulin Detemir Inj 1,000 UNIT/10 ML Vial SQ SCH (09:00)
[2018-08-10] MEDS ORDERED: Vitamin B Complex/Vitamin C Tablet PO SCH (09:00)
--- NOTE | 2018-08-10 09:08 | P.PNVS ---
Subjective Post Op Day #: 1 Procedure: Fistulogram/Axillary vein stent/Seroma evacuation Subjective/Hospital Course: 57/M with a PMH of ESRD on HD every M/W/F Pt w/ a refractory L axillary seroma s/p drainage and excision Pt underwent a Fistulogram/axillary vein stent/Seroma evacuation yesterday POD 1 Pt c/o L UE swelling with axillary pain at the incision line Pt denied hand pain Dressing changed at the BS L Axillary incision intact w/ sutures in place- No R/D Objective Vital Signs / I&O: Vital Signs 08/09/18 12:08 08/09/18 16:00 08/09/18 16:15 Temperature 97.8 F 97.6 F Pulse Rate 65 64 58 L Respiratory Rate 18 17 16 Blood Pressure 149/88 H 165/92 H 158/86 H Pulse Oximetry 95 96 99 08/09/18 16:30 08/09/18 16:45 08/09/18 17:12 Temperature 97.8 F Pulse Rate 55 L 56 L 54 L Respiratory Rate 18 17 16 Blood Pressure 156/85 H 143/82 H 153/86 H Pulse Oximetry 97 97 98 08/09/18 20:00 08/10/18 00:00 08/10/18 04:00 Temperature 97.9 F 97.4 F L 97.9 F Pulse Rate 87 60 87 Respiratory Rate 16 18 18 Blood Pressure 153/83 H 141/77 H 146/79 H Pulse Oximetry 94 L 08/10/18 05:47 Temperature Pulse Rate 61 Respiratory Rate Blood Pressure Pulse Oximetry Intake & Output 08/09/18 08/10/18 08/10/18 18:59 06:59 18:59 Intake Total 1000 / 1000 720 / 720 Output Total 75 / 75 400 / 400 Balance 925 / 925 320 / 320 Weight 70.7 kg Intake: IV 500 / 500 Heparin/NS PF Inj 500 ML @ 0 500 / 500 mls/hr .ROUTE .[facility] Rx#: [id number] Oral 720 / 720 Anesthesia Amount 500 / 500 Output: Urine 400 / 400 Estimated Blood Loss 75 / 75 Other: Weight On Admission 70.7 kg Exam: + thrill L hand w/o pain L Axillary incision intact w/ sutures in place- No R/D L UE swelling present B UE warm w/ motor intact Laboratory Results - last 24 hr 08/09/18 08/09/18 08/09/18 12:05 12:10 12:10 WBC RBC Hgb Hct MCV MCH MCHC RDW Plt Count MPV Hematology Comments Sodium Potassium 5.4 H Chloride Carbon Dioxide Anion Gap BUN Creatinine Estimated GFR POC Glucose 238 H Random Glucose Calcium Blood Type O Positive Antibody Screen Negative 08/09/18 08/09/18 08/10/18 16:03 22:19 05:30 WBC 10.9 RBC 4.79 Hgb 12.1 L Hct 37.9 L MCV 79.2 L MCH 25.2 L MCHC 31.9 L RDW 18.8 H Plt Count 208 D MPV 7.9 Hematology Comments Sodium Potassium Chloride Carbon Dioxide Anion Gap BUN Creatinine Estimated GFR POC Glucose 264 H 298 H Random Glucose Calcium Blood Type Antibody Screen 08/10/18 08/10/18 05:30 07:49 WBC RBC Hgb Hct MCV MCH MCHC RDW Plt Count MPV Hematology Comments Sodium 136 Potassium 5.5 H Chloride 104 Carbon Dioxide 21.5 Anion Gap 11 BUN 66 H Creatinine 6.18 H Estimated GFR 11 L POC Glucose 155 H Random Glucose 185 H Calcium 7.9 L Blood Type Antibody Screen Assessment and Plan - Assessment (1) ESRD (end stage renal disease) on dialysis Code(s): N18.6 - End stage renal disease; Z99.2 - Dependence on renal dialysis Status: Chronic (2) Left arm swelling Code(s): M79.89 - Other specified soft tissue disorders Status: Chronic (3) Seroma after procedure Status: Acute - Plan Pt S/P L UE fistulogram, access revision POD 1 pain controlled No hand pain Incision intact Plan Dressing changed this am Apply an andree wrap to patients L UE from fingers to upper arm for swelling Elevate L UE Continue pain control HD today D/C planning for tomorrow am Corinne Meadows [email or web address] [phone]
--- NOTE | 2018-08-10 11:27 | P.CONNP ---
<Martha Mora - Last Filed: 08/10/18 11:02> History of Present Illness Service: Nephrology Consult date: 08/10/18 Requesting Physician: Alli Sauceda Reason for Consult: Management of dialysis patient Primary Care Provider: No Primary Care Physician Chief Complaint: Refractory seroma, status post seroma evacuation History of Present Illness: Patient is a 57-year-old male with history of end-stage renal disease, hypertension, diabetes, failed kidney transplant, on hemodialysis on Wednesday, Wednesday and Wednesday. The patient presented for surgery yesterday with Dr. Sauceda in regards to a left axillary refractory seroma, ipsilateral to his AV graft. Status post seroma evacuation with left axillary vein stent placed on 05/2019. We have been consulted to manage him as an inpatient with dialysis. He has been seen in dialysis, and in no acute distress. Left upper extremity is quite swollen. Gauze with Tegaderm is seen to left axillary, clean and intact. He denies any shortness of breath at this time. Review of Systems All other systems reviewed negative except as stated in HPI PMFSH - History History Provided By: Patient - Medical History Medical History: Medical History (Last Reviewed 08/10/18 @ 11:11 by Martha Mora APRN) Hyperlipidemia (Acute) Type 2 diabetes mellitus (Chronic) Hypertension (Chronic) AV fistula (Chronic) GERD (gastroesophageal reflux disease) (Chronic) Kidney failure (Chronic) CHF (congestive heart failure) Dialysis patient History of alcohol use History of illicit drug use Hx of transfusion Obstructive sleep apnea on CPAP Smoking hx TIA (transient ischemic attack) - Surgical History Surgical History: Surgical History (Last Reviewed 08/10/18 @ 11:11 by Martha Mora APRN) H/O left knee surgery Kidney transplant recipient H/O hernia repair (Resolved) H/O inguinal hernia repair (Resolved) S/P ACL repair (Resolved) - Family History Family History: Family History (Last Reviewed 08/10/18 @ 11:11 by Martha Mora APRN) Other Family history non-contributory - Social History I have reviewed the patient's Social History: Yes - Tobacco History Second Hand Smoke Exposure: Yes Smoking Status: Former smoker Tobacco Type: Cigarettes - Alcohol History How Often Do You Have a Drink Containing Alcohol: Never - Substance Use History Substance History: Past History - Travel History Recent Travel in the [place] Within the Last 8 Weeks: No Recent Travel Out of the Country Within the Last 8 Weeks: No Medications and Allergies Allergies Allergy/AdvReac Type Severity Reaction Status Date / Time banana Allergy Severe HIVES Verified 08/09/18 11:31 diaz Allergy Severe Hives Verified 08/09/18 11:31 beet Allergy Severe HIVES Verified 08/09/18 11:31 latex Allergy Severe Hives and Verified 08/09/18 11:31 rash peas Allergy Severe HIVES Verified 08/09/18 11:31 tomato Allergy Severe Hives Verified 08/09/18 11:31 Home Medications Medication Instructions Recorded Confirmed Type amlodipine 10 mg PO DAILY 01/12/18 08/09/18 History atorvastatin [Lipitor] 40 mg PO DAILY 01/12/18 08/09/18 History hydralazine 10 mg PO TID 01/12/18 08/09/18 History insulin glargine [Lantus U-100 20 unit SUB-Q DAILY 01/12/18 08/09/18 History Insulin] magnesium gluconate 500 mg PO DAILY 01/12/18 08/09/18 History pantoprazole [Protonix] 40 mg PO DAILY 01/12/18 08/09/18 History prednisone 20 mg PO DAILY 01/12/18 08/09/18 History sodium bicarbonate 650 mg PO QID 01/12/18 08/09/18 History tacrolimus 1 mg PO BID 01/12/18 08/09/18 History baclofen 10 mg PO DAILY PRN 04/18/18 08/09/18 History cholecalciferol (vitamin D3) 400 unit PO DAILY 04/18/18 08/09/18 History fluticasone [Flonase Allergy 1 spray INTRANASAL DAILY 04/18/18 08/09/18 History Relief] mycophenolate mofetil [CellCept] 500 mg PO DAILY 04/18/18 08/09/18 History ondansetron HCl [Zofran] 4 mg PO Q6-8H PRN 04/18/18 08/09/18 History valganciclovir 450 mg PO DAILY 04/18/18 08/09/18 History vitamin B complex [B-Complex] 1 tab PO DAILY 04/18/18 08/09/18 History insulin lispro [Humalog U-100 See Protocol SUBCUT BID 05/04/18 08/09/18 History Insulin] metoprolol succinate 100 mg PO DAILY 06/16/18 08/09/18 History furosemide [Lasix] 20 mg PO DAILY 07/27/18 08/09/18 History levothyroxine 25 mcg PO DAILY 07/28/18 08/09/18 History Active Medications: Active Medications Acetaminophen (Tylenol) 650 mg PO UNSCH PRN PRN Reason: SEE LABEL COMMENTS Al Hydroxide/Mg Hydroxide (Milk Of Shania Awad) 30 ml PO Q12H PRN PRN Reason: Mild Constipation Amlodipine Besylate (Norvasc) 10 mg PO DAILY [facility] Last Admin: 08/10/18 08:07 Dose: 10 mg Atorvastatin Calcium (Lipitor) 40 mg PO DAILY [facility] Last Admin: 08/10/18 08:08 Dose: 40 mg Baclofen (Lioresal) 10 mg PO DAILY PRN PRN Reason: Cramps Bisacodyl (Dulcolax Supp) 10 mg RECTAL DAILY PRN PRN Reason: SEVERE CONSITIPATION Clonidine HCl (Catapres) 0.1 mg PO UNSCH PRN PRN Reason: SEE LABEL COMMENTS Dextrose (D50w Vial) 50 ml IV.PUSH UNSCH PRN PRN Reason: PER HYPOGLYCEMIA PROTOCOL Diphenhydramine HCl (Benadryl) 25 mg PO UNSCH PRN PRN Reason: SEE LABEL COMMENTS Fluticasone Propionate (Flonase Nasal [place]) 1 spray EACH NARE DAILY [facility] Last Admin: 08/10/18 08:07 Dose: 1 spray Furosemide (Lasix) 20 mg PO DAILY [facility] Last Admin: 08/10/18 08:07 Dose: 20 mg Gelatin (Gelfoam 12 Mm/7 Mm Topical) 1 foam TOPICAL PRN PRN PRN Reason: help stop bleeding from site Gentamicin Sulfate (Gentamicin Inj) 20 mg OTHER WITH DIALYSIS PRN PRN Reason: Dwell Gentamycin Lock Glucagon (Glucagon Inj) 1 mg OTHER PRN PRN PRN Reason: for Hypoglycemia Protocol Heparin Sodium (Porcine) (Heparin Inj) 5,000 units SQ Q8H [facility] Heparin Sodium (Porcine) (Heparin Inj) 8,000 units OTHER WITH DIALYSIS PRN PRN Reason: for machine prime Heparin Sodium (Porcine) (Heparin Inj) 1,000 units OTHER WITH DIALYSIS PRN PRN Reason: Dwell Heparin to Fill Catheter Hydralazine HCl (Apresoline) 10 mg PO TID [facility] Last Admin: 08/10/18 09:00 Dose: 10 mg Hydromorphone HCl (Dilaudid) 2 mg PO Q4H PRN PRN Reason: PAIN SCALE 6 TO 10 Lactated Ringer's (Lr 1000 Ml Inj) 1,000 mls @ 30 mls/hr IV.SIG .Q24H [facility] Stop: 08/10/18 11:44 Last Admin: 08/09/18 12:32 Dose: Not Given Albumin Human (Flexbumin 25% Inj) 100 mls @ 60 mls/hr IV.SIG WITH DIALYSIS PRN PRN Reason: hypotension / volume replace Sodium Chloride (Ns Inj) 1,000 mls @ 0 mls/hr OTHER .Q0M PRN PRN Reason: for prime and rinse back Sodium Chloride (Ns Inj) 1,000 mls @ 200 mls/hr OTHER .Q5H PRN PRN Reason: for dialyzer flush PRN Sodium Chloride (Ns Inj) 1,000 mls @ 0 mls/hr IV.CONT .Q0M PRN PRN Reason: hypotension / volume replace Insulin Aspart (Novolog Insulin Correctional Sugar Inj) 0 unit SQ ACHS AND 3AM KELSIE; Protocol Last Admin: 08/10/18 09:00 Dose: Not Given Insulin Detemir (Levemir Inj) 20 unit SQ DAILY [facility] Last Admin: 08/10/18 09:00 Dose: 20 unit Lactulose (Lactulose Liq) 30 ml PO DAILY PRN PRN Reason: SEVERE CONSITIPATION Levothyroxine Sodium (Synthroid) 25 mcg PO DAILY@0600 [facility] Last Admin: 08/10/18 06:45 Dose: Not Given Mannitol (Mannitol Inj) 12.5 gm IV.PUSH UNSCH PRN PRN Reason: hypotension / volume replace Metoprolol Succinate (Toprol Xl) 100 mg PO DAILY [facility] Last Admin: 08/10/18 08:08 Dose: 100 mg Miscellaneous Information ([facility] Nursing Information) 1 each OTHER UNSCH PRN PRN Reason: SEE LABEL COMMENTS Stop: 08/10/18 15:59 Mycophenolate Mofetil (Cellcept) 500 mg PO DAILY [facility] Last Admin: 08/10/18 08:08 Dose: 500 mg Nitroglycerin (Nitrostat Sl) 0.4 mg SL Q5M PRN PRN Reason: CHEST PAIN Ondansetron HCl (Zofran Odt) 4 mg PO Q6H PRN PRN Reason: NAUSEA Ondansetron HCl (Zofran Inj) 4 mg IV.PUSH UNSCH PRN PRN Reason: NAUSEA IF PO INTOLERABLE Oxycodone HCl (Roxicodone) 5 mg PO Q4H PRN PRN Reason: PAIN SCALE 1 TO 5 Last Admin: 08/10/18 08:09 Dose: 5 mg Pantoprazole Sodium (Protonix) 40 mg PO DAILY [facility] Last Admin: 08/10/18 08:07 Dose: 40 mg Pt:Magnesium (Gluconate 500 Mg) 0 each PO DAILY [facility] Prednisone (Deltasone) 20 mg PO DAILY [facility] Last Admin: 08/10/18 08:09 Dose: 20 mg Senna/Docusate Sodium (Aline-Colace) 1 tab PO BID [facility] Last Admin: 08/10/18 08:08 Dose: 1 tab Sennosides (Senokot) 17.2 mg PO Q12H PRN PRN Reason: Moderate Constipation Sodium Bicarbonate (Sodium Bicarbonate) 650 mg PO QID [facility] Last Admin: 08/10/18 08:08 Dose: 650 mg Sodium Chloride (Ns Flush) 5 ml IV.FLUSH PRN PRN PRN Reason: flush each lumen during HD Tacrolimus (Prograf) 1 mg PO BID [facility] Last Admin: 08/10/18 08:09 Dose: 1 mg Valganciclovir (Valcyte) 450 mg PO DAILY [facility] Last Admin: 08/10/18 09:00 Dose: 450 mg Vitamin B Complex/Vitamin C (Allbee C) 1 tab PO DAILY [facility] Last Admin: 08/10/18 08:08 Dose: 1 tab Vitamin D (Vitamin D3) 400 unit PO DAILY [facility] Last Admin: 08/10/18 09:00 Dose: 400 unit Exam Vital signs: Vital Signs 08/09/18 12:08 08/09/18 16:00 08/09/18 16:15 Temperature 97.8 F 97.6 F Pulse Rate 65 64 58 L Respiratory Rate 18 17 16 Blood Pressure 149/88 H 165/92 H 158/86 H Pulse Oximetry 95 96 99 08/09/18 16:30 08/09/18 16:45 08/09/18 17:12 Temperature 97.8 F Pulse Rate 55 L 56 L 54 L Respiratory Rate 18 17 16 Blood Pressure 156/85 H 143/82 H 153/86 H Pulse Oximetry 97 97 98 08/09/18 20:00 08/10/18 00:00 08/10/18 04:00 Temperature 97.9 F 97.4 F L 97.9 F Pulse Rate 87 60 87 Respiratory Rate 16 18 18 Blood Pressure 153/83 H 141/77 H 146/79 H Pulse Oximetry 94 L 08/10/18 05:47 08/10/18 08:00 Temperature 98 F Pulse Rate 61 70 Respiratory Rate Blood Pressure 155/80 H Pulse Oximetry Intake & Output 08/09/18 08/10/18 08/10/18 18:59 06:59 18:59 Intake Total 1000 / 1000 720 / 720 Output Total 75 / 75 400 / 400 Balance 925 / 925 320 / 320 Weight 70.7 kg Intake: IV 500 / 500 Heparin/NS PF Inj 500 ML @ 0 500 / 500 mls/hr .ROUTE [email or web address] Rx#: [id number] Oral 720 / 720 Anesthesia Amount 500 / 500 Output: Urine 400 / 400 Estimated Blood Loss 75 / 75 Other: Weight On Admission 70.7 kg Narrative: GENERAL: Appears to be in no acute distress. Resting comfortably. SKIN: Warm and dry, intact, No lesions seen. Left upper extremity quite swollen , left axillary gauze with Tegaderm noted, clean and intact. HEAD: Normocephalic. EYES: No scleral icterus. No injection or drainage. Pupils are equal and reactive to light. NECK: Supple, trachea midline. No JVD or lymphadenopathy. CARDIOVASCULAR: Regular rate and rhythm without murmurs, gallops, or rubs. Left upper extremity AV graft noted. Positive bruit and thrill. RESPIRATORY: Breath sounds equal bilaterally. No accessory muscle use. Breath sounds are clear bilaterally to auscultation. GASTROINTESTINAL: Abdomen soft, non-tender, nondistended. Postive BS in all 4 quadrants. BACK: Nontender without obvious deformity. No CVA tenderness. Results - Lab Results 08/10/18 05:30 08/10/18 05:30 Most recent lab results Calcium 7.9 mg/dL (8.5-10.1) L 08/10/18 05:30 Assessment and Plan - Assessment (1) ESRD (end stage renal disease) on dialysis Code(s): N18.6 - End stage renal disease; Z99.2 - Dependence on renal dialysis Status: Chronic Plan: Status post evacuation of a refractory left axillary seroma, with a left axillary vein stent placed. Postop day 1, left upper extremity quite swollen. Left upper arm AV graft noted , positive bruit and thrill Seen in dialysis, just starting treatment. Wednesday, dialysis schedule. Pre-dialysis, potassium 5.5 -Plans to remove 2 L today -Continue with supportive care -Check potassium level post dialysis (2) Hypertension Code(s): I10 - Essential (primary) hypertension Status: Chronic Plan: Blood pressure 155/80 On Toprol-XL 100 mg daily, hydralazine 10 mg 3 times daily, Norvasc 10 mg daily , Lasix 20 mg daily. Clonidine as needed -Continue to monitor, titrate medications as needed (3) Type 2 diabetes mellitus Code(s): E11.9 - Type 2 diabetes mellitus without complications Status: Chronic Plan: Keep blood sugars between 140 and 180 -Continue to monitor, on insulin therapy <Chito Pereira - Last Filed: 08/10/18 16:18> History of Present Illness Primary Care Provider: No Primary Care Physician [facility] - Medical History Medical History: Medical History (Last Reviewed 08/10/18 @ 11:11 by Martha Mora APRN) Hyperlipidemia (Acute) Type 2 diabetes mellitus (Chronic) Hypertension (Chronic) AV fistula (Chronic) GERD (gastroesophageal reflux disease) (Chronic) Kidney failure (Chronic) CHF (congestive heart failure) Dialysis patient History of alcohol use History of illicit drug use Hx of transfusion Obstructive sleep apnea on CPAP Smoking hx TIA (transient ischemic attack) - Surgical History Surgical History: Surgical History (Last Reviewed 08/10/18 @ 11:11 by Martha Mora APRN) H/O left knee surgery Kidney transplant recipient H/O hernia repair (Resolved) H/O inguinal hernia repair (Resolved) S/P ACL repair (Resolved) - Family History Family History: Family History (Last Reviewed 08/10/18 @ 11:11 by Martha Mora APRN) Other Family history non-contributory Medications and Allergies Active Medications: Active Medications Acetaminophen (Tylenol) 650 mg PO UNSCH PRN PRN Reason: SEE LABEL COMMENTS Al Hydroxide/Mg Hydroxide (Milk Of [place] Liq) 30 ml PO Q12H PRN PRN Reason: Mild Constipation Amlodipine Besylate (Norvasc) 10 mg PO DAILY [facility] Last Admin: 08/10/18 08:07 Dose: 10 mg Atorvastatin Calcium (Lipitor) 40 mg PO DAILY [facility] Last Admin: 08/10/18 08:08 Dose: 40 mg Baclofen (Lioresal) 10 mg PO DAILY PRN PRN Reason: Cramps Bisacodyl (Dulcolax Supp) 10 mg RECTAL DAILY PRN PRN Reason: SEVERE CONSITIPATION Clonidine HCl (Catapres) 0.1 mg PO UNSCH PRN PRN Reason: SEE LABEL COMMENTS Dextrose (D50w Vial) 50 ml IV.PUSH UNSCH PRN PRN Reason: PER HYPOGLYCEMIA PROTOCOL Diphenhydramine HCl (Benadryl) 25 mg PO UNSCH PRN PRN Reason: SEE LABEL COMMENTS Fluticasone Propionate (Flonase Nasal [place]) 1 spray EACH NARE DAILY [facility] Last Admin: 08/10/18 08:07 Dose: 1 spray Furosemide (Lasix) 20 mg PO DAILY [facility] Last Admin: 08/10/18 08:07 Dose: 20 mg Gelatin (Gelfoam 12 Mm/7 Mm Topical) 1 foam TOPICAL PRN PRN PRN Reason: help stop bleeding from site Gentamicin Sulfate (Gentamicin Inj) 20 mg OTHER WITH DIALYSIS PRN PRN Reason: Dwell Gentamycin Lock Glucagon (Glucagon Inj) 1 mg OTHER PRN PRN PRN Reason: for Hypoglycemia Protocol Heparin Sodium (Porcine) (Heparin Inj) 5,000 units SQ Q8H [facility] Last Admin: 08/10/18 15:15 Dose: 5,000 units Heparin Sodium (Porcine) (Heparin Inj) 8,000 units OTHER WITH DIALYSIS PRN PRN Reason: for machine prime Heparin Sodium (Porcine) (Heparin Inj) 1,000 units OTHER WITH DIALYSIS PRN PRN Reason: Dwell Heparin to Fill Catheter Hydralazine HCl (Apresoline) 10 mg PO TID [facility] Last Admin: 08/10/18 15:14 Dose: 10 mg Hydromorphone HCl (Dilaudid) 2 mg PO Q4H PRN PRN Reason: PAIN SCALE 6 TO 10 Albumin Human (Flexbumin 25% Inj) 100 mls @ 60 mls/hr IV.SIG WITH DIALYSIS PRN PRN Reason: hypotension / volume replace Sodium Chloride (Ns Inj) 1,000 mls @ 0 mls/hr OTHER .Q0M PRN PRN Reason: for prime and rinse back Sodium Chloride (Ns Inj) 1,000 mls @ 200 mls/hr OTHER .Q5H PRN PRN Reason: for dialyzer flush PRN Sodium Chloride (Ns Inj) 1,000 mls @ 0 mls/hr IV.CONT .Q0M PRN PRN Reason: hypotension / volume replace Insulin Aspart (Novolog Insulin Correctional Sugar Inj) 0 unit SQ ACHS AND 3AM KEL[facility]; Protocol Last Admin: 08/10/18 15:14 Dose: Not Given Insulin Detemir (Levemir Inj) 20 unit SQ DAILY [facility] Last Admin: 08/10/18 09:00 Dose: 20 unit Lactulose (Lactulose Liq) 30 ml PO DAILY PRN PRN Reason: SEVERE CONSITIPATION Levothyroxine Sodium (Synthroid) 25 mcg PO DAILY@0600 [facility] Last Admin: 08/10/18 06:45 Dose: Not Given Mannitol (Mannitol Inj) 12.5 gm IV.PUSH UNSCH PRN PRN Reason: hypotension / volume replace Metoprolol Succinate (Toprol Xl) 100 mg PO DAILY [facility] Last Admin: 08/10/18 08:08 Dose: 100 mg Mycophenolate Mofetil (Cellcept) 500 mg PO DAILY [facility] Last Admin: 08/10/18 08:08 Dose: 500 mg Nitroglycerin (Nitrostat Sl) 0.4 mg SL Q5M PRN PRN Reason: CHEST PAIN Ondansetron HCl (Zofran Odt) 4 mg PO Q6H PRN PRN Reason: NAUSEA Ondansetron HCl (Zofran Inj) 4 mg IV.PUSH UNSCH PRN PRN Reason: NAUSEA IF PO INTOLERABLE Oxycodone HCl (Roxicodone) 5 mg PO Q4H PRN PRN Reason: PAIN SCALE 1 TO 5 Last Admin: 08/10/18 08:09 Dose: 5 mg Pantoprazole Sodium (Protonix) 40 mg PO DAILY [facility] Last Admin: 08/10/18 08:07 Dose: 40 mg Pt:Magnesium (Gluconate 500 Mg) 0 each PO DAILY [facility] Prednisone (Deltasone) 20 mg PO DAILY [facility] Last Admin: 08/10/18 08:09 Dose: 20 mg Senna/Docusate Sodium (Aline-Colace) 1 tab PO BID [facility] Last Admin: 08/10/18 08:08 Dose: 1 tab Sennosides (Senokot) 17.2 mg PO Q12H PRN PRN Reason: Moderate Constipation Sodium Bicarbonate (Sodium Bicarbonate) 650 mg PO QID [facility] Last Admin: 08/10/18 15:15 Dose: 650 mg Sodium Chloride (Ns Flush) 5 ml IV.FLUSH PRN PRN PRN Reason: flush each lumen during HD Tacrolimus (Prograf) 1 mg PO BID [facility] Last Admin: 08/10/18 08:09 Dose: 1 mg Valganciclovir (Valcyte) 450 mg PO DAILY [facility] Last Admin: 08/10/18 09:00 Dose: 450 mg Vitamin B Complex/Vitamin C (Allbee C) 1 tab PO DAILY [facility] Last Admin: 08/10/18 08:08 Dose: 1 tab Vitamin D (Vitamin D3) 400 unit PO DAILY [facility] Last Admin: 08/10/18 09:00 Dose: 400 unit Exam Vital signs: Vital Signs 08/09/18 16:15 08/09/18 16:30 08/09/18 16:45 Temperature Pulse Rate 58 L 55 L 56 L Respiratory Rate 16 18 17 Blood Pressure 158/86 H 156/85 H 143/82 H Pulse Oximetry 99 97 97 08/09/18 17:12 08/09/18 20:00 08/10/18 00:00 Temperature 97.8 F 97.9 F 97.4 F L Pulse Rate 54 L 87 60 Respiratory Rate 16 16 18 Blood Pressure 153/86 H 153/83 H 141/77 H Pulse Oximetry 98 94 L 08/10/18 04:00 08/10/18 05:47 08/10/18 08:00 Temperature 97.9 F 98 F Pulse Rate 87 61 70 Respiratory Rate 18 Blood Pressure 146/79 H 155/80 H Pulse Oximetry Intake & Output 08/09/18 08/10/18 08/10/18 18:59 06:59 18:59 Intake Total 1000 / 1000 720 / 720 Output Total 75 / 75 400 / 400 Balance 925 / 925 320 / 320 Weight 70.7 kg Intake: IV 500 / 500 Heparin/NS PF Inj 500 ML @ 0 500 / 500 mls/hr .ROUTE .[facility] Rx#: [id number] Oral 720 / 720 Anesthesia Amount 500 / 500 Output: Urine 400 / 400 Estimated Blood Loss 75 / 75 Other: Weight On Admission 70.7 kg Results - Lab Results 08/10/18 05:30 08/10/18 05:30 Most recent lab results Calcium 7.9 mg/dL (8.5-10.1) L 08/10/18 05:30 Assessment and Plan - Assessment (1) ESRD (end stage renal disease) on dialysis Code(s): N18.6 - End stage renal disease; Z99.2 - Dependence on renal dialysis Status: Chronic (2) Hypertension Code(s): I10 - Essential (primary) hypertension Status: Chronic (3) Type 2 diabetes mellitus Code(s): E11.9 - Type 2 diabetes mellitus without complications Status: Chronic - Attending Attestation I have seen and examined the patient during dialysis left arm is swollen blood flow during dialysis was low due to edema, continue supportive care I agree with assessment and plan, care discussed with JOSUE Thomas status post excision of seroma left AV fistula Continue to follow with vascular surgery
[2018-08-10] MEDS: Heparin - SQ 10,000 UNITS/ML Vial SQ SCH ×2 (15:15→22:58)
[2018-08-11] MEDS: Insulin NovoLOG Aspart Correctional Sugar Inj SQ SCH (03:44)
[2018-08-11] MEDS: Heparin - SQ 10,000 UNITS/ML Vial SQ SCH (06:13)
[2018-08-11 08:21] VITALS: BP 152/79; RESP 22; TEMP 98.2
[2018-08-11 08:31] VITALS: O2SAT 93
[2018-08-11 09:02] VITALS: PULSE 80
--- NOTE | 2018-08-11 09:03 | P.PNVS ---
Subjective Post Op Day #: 2 Procedure: Fistulogram/Axillary vein stent/Seroma evacuation Subjective/Hospital Course: 57/M with a PMH of ESRD on HD every M/W/F Pt w/ a refractory L axillary seroma s/p drainage and excision Pt underwent a Fistulogram/axillary vein stent/Seroma evacuation yesterday POD 2 Pt continues to c/o L UE swelling with axillary pain at the incision line pt c/o nausea this am- Zofran given Pt denied hand pain L hand swelling improved Dressing changed at the BS L Axillary incision intact w/ sutures in place- No R/D Objective Vital Signs / I&O: Vital Signs 08/10/18 19:00 08/10/18 19:45 08/10/18 19:48 Temperature 99.0 F Pulse Rate 73 73 Respiratory Rate 16 Blood Pressure 146/76 H Pulse Oximetry 96 96 08/10/18 20:00 08/10/18 21:00 08/10/18 22:00 Temperature Pulse Rate 72 72 76 Respiratory Rate Blood Pressure Pulse Oximetry 96 08/10/18 23:00 08/11/18 00:00 08/11/18 01:00 Temperature 98.9 F Pulse Rate 75 77 80 Respiratory Rate 16 Blood Pressure 147/75 H Pulse Oximetry 93 L 08/11/18 02:00 08/11/18 03:00 08/11/18 03:40 Temperature 99.2 F Pulse Rate 80 85 84 Respiratory Rate 16 Blood Pressure 147/75 H Pulse Oximetry 94 L 08/11/18 04:00 08/11/18 05:00 08/11/18 06:00 Temperature Pulse Rate 83 80 78 Respiratory Rate Blood Pressure Pulse Oximetry 08/11/18 07:00 08/11/18 08:00 08/11/18 08:30 Temperature 98.2 F Pulse Rate 79 85 Respiratory Rate 22 Blood Pressure 152/79 H Pulse Oximetry 98 93 L Intake & Output 08/10/18 08/11/18 08/11/18 18:59 06:59 18:59 Intake Total 400 / 400 720 / 720 Output Total 350 / 350 550 / 550 Balance 50 / 50 170 / 170 Intake: Oral 400 / 400 720 / 720 Output: Urine 350 / 350 550 / 550 Exam: + thrill L hand w/o pain L Axillary incision intact w/ sutures in place- No R/D L UE swelling present L hand swelling improved B UE warm w/ motor intact RRR Resp even and CTA Laboratory Results - last 24 hr 08/10/18 08/10/18 08/10/18 12:46 16:55 21:07 POC Glucose 161 H 331 H 237 H 08/11/18 08/11/18 03:35 08:14 POC Glucose 202 H 235 H Assessment and Plan - Assessment (1) ESRD (end stage renal disease) on dialysis Code(s): N18.6 - End stage renal disease; Z99.2 - Dependence on renal dialysis Status: Chronic (2) Left arm swelling Code(s): M79.89 - Other specified soft tissue disorders Status: Chronic (3) Seroma after procedure Status: Acute - Plan Pt S/P L UE fistulogram, access revision POD 2 Pain controlled No hand pain Incision intact L arm swelling noted Plan Pt clear for d/c this am Arranged out pt follow up Dressing changed this am Discussed and reviewed out pt care and management w/ pt Corinne Meadows NP [facility] [phone]
--- NOTE | 2018-08-11 09:19 | P.DS ---
Discharge Summary - Admission Date 08/09/18 15:45 - Admission Diagnosis (1) Seroma after procedure (2) Pain and swelling of right upper extremity - Discharge Date 08/11/18 - Summary Brief History from admission: 57 yo male with refractory L axillary seroma s/p drainage and excision. Ipsilateral to functioning AVG. Procedure: Fistulogram/Axillary vein stent/Seroma evacuation Significant Findings: + thrill L hand w/o pain L Axillary incision intact w/ sutures in place- No R/D L UE swelling present L hand swelling improved B UE warm w/ motor intact RRR Resp even and CTA Abnormal Lab Results 08/10/18 08/10/18 08/10/18 12:46 16:55 21:07 POC Glucose 161 H 331 H 237 H 08/11/18 08/11/18 03:35 08:14 POC Glucose 202 H 235 H Hospital Course: 57/M with a PMH of ESRD on HD every M/W/F Pt w/ a refractory L axillary seroma s/p drainage and excision Pt underwent a Fistulogram/axillary vein stent/Seroma evacuation Pt did well pain controlled Pt noted to have expected L UE swelling with axillary pain at the incision line - L UE andree wrapped from fingers to upper arm/elevated/ice applied incision intact and does not appear infectious Pt denied hand pain Pt clear for d/c POD 2 w/ Rx for out pt pain control (E-Forcse reviewed) D/C instructions reviewed w/ pt Arranged out pt f/u in 2W - Discharge Instructions Any questions or concerns: Call [facility] at [facility] [phone] Discharge Plan - Discharge Disposition Patient Disposition: 01 Discharge Home - Discharge Condition Condition: Good - Discharge Order Discharge Orders: Discharge Order (Routine); Ordered 08/11/18 Ordered By: Corinne Meadows - Physicians Team Primary Care Provider: Primary Care Paul,Letty Attending Provider: Alli Sauceda Other Providers: Chito Pereira MD ; Hemanth Saxena - Rxs /Orders / Referrals /Forms Prescriptions: Continue amlodipine 10 mg Tablet 10 mg PO DAILY atorvastatin [Lipitor] 20 mg Tablet 40 mg PO DAILY baclofen 10 mg Tablet 10 mg PO DAILY PRN (Reason: Cramps) cholecalciferol (vitamin D3) 400 unit Tablet 400 unit PO DAILY fluticasone [Flonase Allergy Relief] 50 mcg/actuation [place],Suspension 1 spray INTRANASAL DAILY furosemide [Lasix] 20 mg Tablet 20 mg PO DAILY hydralazine 10 mg Tablet 10 mg PO TID insulin glargine [Lantus U-100 Insulin] 100 unit/mL Solution 20 unit SUB-Q DAILY insulin lispro [Humalog U-100 Insulin] 100 unit/mL Solution See Protocol subcut BID levothyroxine 25 mcg Capsule 25 mcg PO DAILY magnesium gluconate 27.5 mg (500 mg) Tablet 500 mg PO DAILY metoprolol succinate 100 mg Tablet Extended Release 24 Hr 100 mg PO DAILY mycophenolate mofetil [CellCept] 250 mg Capsule 500 mg PO DAILY ondansetron HCl [Zofran] 4 mg Tablet 4 mg PO Q6-8H PRN (Reason: Nausea) oxycodone-acetaminophen [Percocet] 5-325 mg Tablet 1 tab PO Q4-6H PRN (Reason: Pain) Qty: 20 RF: 0 pantoprazole [Protonix] 40 mg Tablet,Delayed Release (Dr/Ec) 40 mg PO DAILY prednisone 10 mg Tablet 20 mg PO DAILY sodium bicarbonate 325 mg Tablet 650 mg PO QID tacrolimus 5 mg Capsule 1 mg PO BID valganciclovir 450 mg Tablet 450 mg PO DAILY vitamin B complex [B-Complex] Tablet 1 tab PO DAILY Referrals: Primary Care Letty Miller [Primary Care Provider] - See Instructions Alli Sauceda MD [Physician] - See Instructions (Your post operative follow up is scheduled on 08/26/18 at 9:30) - Discharge Instructions Patient Printed Instructions: Dialysis Diet (GEN), Fistulogram (GEN), Seroma ( GEN) - Post Discharge Care Plan Care Plan Goals: Discharge Care Plan Goals After Vascular Surgery Contact: Please call [phone] if you have any problems or have questions regarding your hospitalization. Directions to Meet Your Goals: 1. Diet: * You may resume a regular diet as you were eating at home before your admission. 2. Activity: * Increase your activity level gradually. * Keep surgical extremities elevated when at rest. This will help limit the swelling, bruising and discomfort normally present after surgery. * Walking is a good form of light exercise. Go for a walk at least 3 times per day. * No heavy lifting (lifting over 10 pounds) for at least 4 weeks from surgery. * Check with your surgeon to ensure when you are cleared for heavy lifting and full-intensity exercising. * Your strength will gradually improve. * No driving or operating motorized vehicles while on prescription pain medications. * No swimming until wounds fully healed. * Return to work when cleared by MD/ROB/MAINTENANCE ADVISOR. 3. Bathing: Shower daily. * Gently let soap and water run over your incision and pat dry. Do not scrub the incision/wound. * Don't soak in a bath or submerge your incision in water until your incision is healed and evaluated by your physician at follow-up (usually two weeks). 4. Wound Care: INCISION SITE CARE INSTRUCTIONS: * You may leave your incision open to air. * Keep your incision clean and dry, unless showering. See above. * Moisture near the incision will cause the wound to open. * No lotions, creams, ointments, or powders on incisions until they are well- healed. * If you have glue over the incision(s), allow it to fall off naturally in 1-3 weeks * If present, fabian/sutures will be removed 2-3 weeks after surgery during your follow-up clinic visit. * If present, change dressing/bandage when soaked/soiled as needed. * Observe wound daily, checking for signs and symptoms of infection including: foul odor, drainage from the incision, increased redness, increased pain at incision, or increased swelling. 5. Pain Control: Expect post-operative pain for 1-4 weeks after surgery. Your pain will improve gradually. * You may have been provided with a prescription for pain medication. Please take as directed, and be aware of side effects such as drowsiness, constipation and mild stomach discomfort. Pain pills on an empty stomach can cause nausea , so eat a small amount of food, such as crackers, when taking these pills. * Take qfdy-rul-xrvhesw stool softeners (Colace or Senna) with your prescribed pain medication. * Acetaminophen (500mg every 6 hours) or Ibuprofen (400mg every 6 hours) may be used in conjunction with narcotics to relieve pain. DO NOT take more than 4 grams (4000mg) of Tylenol in one day, as this can harm your liver. DO NOT take ibuprofen IF: you have an allergy to non-steroidal anti-inflammatory medications, you are taking Coumadin, you have been told you have kidney problems, or you have a history of gastrointestinal bleeding or ulcers. DO NOT take more than 3.2 grams (3200mg) of ibuprofen in one day. * You may also find relief from using heat packs or pads or ice packs. 6. Bowel Regimen for Constipation: * People who undergo surgery are likely to develop post-operative constipation. Exposure to narcotics and changes in diet, fluid intake, and physical activity are known contributors to constipation. We recommend routine stool softeners and/ or laxatives after surgery for most patients. Start by taking one medication. You can increase as directed to relieve constipation. Stop taking these medications if you develop diarrhea. These medications are available over-the- counter and do not require a prescription: * Colace is a stool softener. We recommend starting at 100mg orally twice per day as needed for soft stools and increase to a maximum of 200mg twice daily as needed. * Senna is a laxative that works by keeping water in the intestine to help stool move along the intestinal tract. Take 1 tablet daily as needed for soft stool and increase to a maximum of 2 tablets twice daily as needed. Take Senna with two full glasses of water each time. * Miralax, Dulcolax and Milk of Magnesia are other zdrr-hbq-opkrciz laxatives that may be used as needed for post-operative constipation. * Drink 6-8 glasses of water per day. * Consume 15-30g of fiber per day: * Metamucil powder, 1-2 tablespoons 1-2 times/day OR Benefiber powder, 2 tablespoons 4 times/day. * Avoid straining. 7. Follow-Up: Do Not miss your follow-up appointment. Keep up with all your appointments and yearly check ups If you have any of the following symptoms please call [phone] immediately: Excessive swelling of the affected extremity Sudden onset of severe or unusual pain in the affected extremity Pain that gets worse or is not relieved by medication Warmth, redness, or swelling in the skin around the wound Foul drainage from incision Extensive bruising or discoloration Wound that opens up or pulls apart Fever above 101.5F or shaking chills Nausea or vomiting Severe diarrhea or severe constipation Dizziness or fainting Chest pain, shortness of breath, or increased work of breathing Weight gain >10 lbs over 3-4 days Inability to urinate for more than 6 hours Cloudy or foul smelling urine Urge to urinate more often than usual Symptoms to Report to Your Doctor: Temperature 101F or higher Pain uncontrolled by medication Drainage or foul odor from incision Extensive bruising or discoloration Chest pain Shortness of breath Nausea, vomiting or dizziness Call 911: Call 911 right away if you have: Sudden onset of chest pain that is not relieved by medications Shortness of breath
[2018-08-11] MEDS: Insulin Detemir Inj 1,000 UNIT/10 ML Vial SQ SCH (09:46)
== END 2018-08-11 10:15 | disposition home or self-care (01) ==
LOC: HCPC 10:57 → HSDC 10:57
PROVIDERS: ADMIT Surgery; ATTEND Surgery
PROC: AVGFTUE (ICD-10-PCS; 2018-08-09 13:36)
DX: E78.5 Hyperlipidemia, unspecified; I50.9 Heart failure, unspecified; E11.22 Type 2 diabetes mellitus with diabetic chronic kidney disease; I87.1 Compression of vein; Z86.73 Personal history of transient ischemic attack (TIA), and cerebral infarction without residual deficits; I13.2 Hypertensive heart and chronic kidney disease with heart failure and with stage 5 chronic kidney disease, or end stage renal disease; K21.9 Gastro-esophageal reflux disease without esophagitis; Z79.899 Other long term (current) drug therapy; Z87.891 Personal history of nicotine dependence; N18.6 End stage renal disease; L76.34 Postprocedural seroma of skin and subcutaneous tissue following other procedure; G47.33 Obstructive sleep apnea (adult) (pediatric); Z79.4 Long term (current) use of insulin; Z99.2 Dependence on renal dialysis
CPT/HCPCS: 80048; 82948; 82962; 84132; 85027; 86850; 86900; 86901; 90935; 96372; 96374; A4646; C1725; C1769; C1874; G0257; G0378; J1100; J1200; J1644; J1815; J2270; J2405; J2704; J2710; J2720; J3010; J3370; J7040; J7050; J7506; J7507; J7512; J7517; Q9949; Q9967

== ENCOUNTER 2018-08-22 12:59 | Inpatient (IN) ==
[2018-08-22] MEDS ORDERED: Bisacodyl 10 MG Supp RECTAL PRN (14:32)
--- NOTE | 2018-08-22 15:43 | P.HPVS ---
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 Pt s/p LEFT brach-ax on 03/07/18, after a failed L UE brachiobasilic AVF that was created on 01/12/18 that occluded and was then ligated. Pt recently underwent a Left axillary seromadrainage and excision of perianastomotic capsule on 07/28/18. Pt returned to clinic w/ a complaint of a recurrent L axillary seroma w/ pain. Pt w/ a complex LEFT axillary seroma that was drained at the BS. Pt returnedfor follow up c/o recurrent draining seroma to his LEFT axillary region and underwent a L UE Fistulogram/axillary vein stent /Seroma evacuation on 08/09/18. Pt s/p LEFT brach-ax on 03/07/18, after a failed L UE brachiobasilic AVF that was created on 01/12/18 that occluded and was then ligated. Pt underwent a LEFT upper extremity fistulogram w/ percutaneous transluminal angioplasty of central vein on 07/05/18. Pt also presented with a recurrent axillary seroma that has been draining clear fluid for the past several weeks that was drained on 07/12/18. Pt underwent a Left axillary seromadrainage and excision of perianastomotic capsule on 07/28/18 Pt underwent a L UE Fistulogram/axillary vein stent/Seroma evacuation on . - Inpatient Certification If this patient has been admitted as an Inpatient: I certify that the inpatient services were ordered in accordance with Medicare regulations governing the order. This includes certification that hospital inpatient services are reasonable and necessary and in the case of services not specified as inpatient-only under 42 CFR 419.22(n), that they are appropriately provided as inpatient services in accordance to with the 2-midnight benchmark under 43 CFR 412.3(e) Estimated Total Length of Stay (Days): 3 Plans for Post Hospital Care: Home Review of Systems All other systems reviewed negative except as stated in HPI Constitutional: Denies chills, Denies fever(s) Cardiovascular: Denies chest pain, Denies shortness of breath Musculoskeletal: Reports other (LEFT arm swelling ) Skin/Breast: Reports other (L axillary incision w/ separation (proximal to mid section of incision line) PMFSH - History History Provided By: Patient, Family Member - Medical History Medical History: Medical History (Last Reviewed 08/22/18 @ 17:15 by Alli Sauceda MD) Hyperlipidemia (Acute) Type 2 diabetes mellitus (Chronic) Hypertension (Chronic) AV fistula (Chronic) GERD (gastroesophageal reflux disease) (Chronic) Kidney failure (Chronic) CHF (congestive heart failure) Dialysis patient History of alcohol use History of illicit drug use Hx of transfusion Obstructive sleep apnea on CPAP Smoking hx TIA (transient ischemic attack) - Surgical History Surgical History: Surgical History (Last Reviewed 08/22/18 @ 17:15 by Alli Sauceda MD) H/O left knee surgery Kidney transplant recipient H/O hernia repair (Resolved) H/O inguinal hernia repair (Resolved) S/P ACL repair (Resolved) - Family History Family History: Family History (Last Reviewed 08/22/18 @ 15:22 by Corinne Meadows) Other Family history non-contributory - Social History I have reviewed the patient's Social History: Yes - Tobacco History Second Hand Smoke Exposure: Yes Smoking Status: Former smoker Tobacco Type: Cigarettes - Alcohol History How Often Do You Have a Drink Containing Alcohol: Never - Substance Use History Substance History: Past History - Immunization History Hx Influenza Vaccine This Season: Yes Medications and Allergies Allergies Allergy/AdvReac Type Severity Reaction Status Date / Time banana Allergy Severe HIVES Verified 08/09/18 11:31 diaz Allergy Severe Hives Verified 08/09/18 11:31 beet Allergy Severe HIVES Verified 08/09/18 11:31 latex Allergy Severe Hives and Verified 08/09/18 11:31 rash peas Allergy Severe HIVES Verified 08/09/18 11:31 tomato Allergy Severe Hives Verified 08/09/18 11:31 Home Medications Medication Instructions Recorded Confirmed Type amlodipine 10 mg PO DAILY 01/12/18 08/09/18 History atorvastatin [Lipitor] 40 mg PO DAILY 01/12/18 08/09/18 History hydralazine 10 mg PO TID 01/12/18 08/09/18 History insulin glargine [Lantus U-100 20 unit SUB-Q DAILY 01/12/18 08/09/18 History Insulin] magnesium gluconate 500 mg PO DAILY 01/12/18 08/09/18 History pantoprazole [Protonix] 40 mg PO DAILY 01/12/18 08/09/18 History prednisone 20 mg PO DAILY 01/12/18 08/09/18 History sodium bicarbonate 650 mg PO QID 01/12/18 08/09/18 History tacrolimus 1 mg PO BID 01/12/18 08/09/18 History baclofen 10 mg PO DAILY PRN 04/18/18 08/09/18 History cholecalciferol (vitamin D3) 400 unit PO DAILY 04/18/18 08/09/18 History fluticasone [Flonase Allergy 1 spray INTRANASAL DAILY 04/18/18 08/09/18 History Relief] mycophenolate mofetil [CellCept] 500 mg PO DAILY 04/18/18 08/09/18 History ondansetron HCl [Zofran] 4 mg PO Q6-8H PRN 04/18/18 08/09/18 History valganciclovir 450 mg PO DAILY 04/18/18 08/09/18 History vitamin B complex [B-Complex] 1 tab PO DAILY 04/18/18 08/09/18 History insulin lispro [Humalog U-100 See Protocol SUBCUT BID 05/04/18 08/09/18 History Insulin] metoprolol succinate 100 mg PO DAILY 06/16/18 08/09/18 History furosemide [Lasix] 20 mg PO DAILY 07/27/18 08/09/18 History levothyroxine 25 mcg PO DAILY 07/28/18 08/09/18 History Active Medications: Active Medications Bisacodyl (Dulcolax Supp) 10 mg RECTAL DAILY PRN PRN Reason: SEVERE CONSITIPATION Lactulose (Lactulose Liq) 30 ml PO DAILY PRN PRN Reason: SEVERE CONSITIPATION Senna/Docusate Sodium (Aline-Colace) 1 tab PO BID KELSIE Sennosides (Senokot) 17.2 mg PO Q12H PRN PRN Reason: Moderate Constipation Physical Exam Vital Signs / I&O: Vital Signs 08/22/18 13:50 Temperature 97.3 F L Pulse Rate 62 Respiratory Rate 17 Blood Pressure 158/88 H Pulse Oximetry 95 Intake & Output 0208/22/18 08/22/18 18:59 06:59 18:59 Other: Date of Last Bowel Movement 08/22/18 Neuro: Speech Clear A&OX3 GCS 15 CN 2-12 intact Heart: RRR Lungs: Even and CTA Abdomen: S/NT Vascular: + thrill near L UE AVF Right: no edema and radial right:present 2+ Left: no edema and radial left:present 2+ Extremities: Equal rn dialysis strength UE 5/5 LE 5/5 LEFT arm swelling present Laboratory Results - last 24 hr 08/22/18 14:28 POC Glucose 121 H Caprini VTE Risk Assessment Caprini VTE Risk Assessment: No/Low Risk (score <= 1) (heparin with HD) Caprini Risk Assessment Model: Point Value = 1 Point Value = 2 Point Value = 3 Point Value = 5 Age 41-60 Minor surgery BMI > 25 kg/m2 Swollen legs Varicose veins or History of unexplained or recurrent spontaneous Oral contraceptives or hormone replacement Sepsis (< 1 month) Serious lung disease, including pneumonia (< 1 month) Abnormal pulmonary function Acute myocardial infarction Congestive heart failure (< 1 month) History of inflammatory bowel disease Medical patient at bed rest Age 61-74 Arthroscopic surgery Major open surgery (> 45 min) Laparoscopic surgery (> 45 min) Malignancy Confined to bed (> 72 hours) Immobilizing plaster cast Central venous access Age >= 75 History of VTE Family history of VTE Factor V Leiden Prothrombin [id number] Lupus anticoagulant Anticardiolipin antibodies Elevated serum homocysteine Heparin-induced thrombocytopenia Other congenital or acquired thrombophilia Stroke (< 1 month) Elective arthroplasty Hip, pelvis, or leg fracture Acute spinal cord injury (< 1 month) Prophylaxis Regimen: Total Risk Factor Score Risk Level Prophylaxis Regimen 0-1 Low Early ambulation 2 Moderate Order ONE of the following: *Sequential Compression Device (SCD) *Heparin 5000 units SQ BID 3-4 Higher Order ONE of the following medications: *Heparin 5000 units SQ TID *Enoxaparin/Lovenox 40 mg SQ daily (WT < 150 kg, CrCl > 30 mL/min) *Enoxaparin/Lovenox 30 mg SQ daily (WT < 150 kg, CrCl > 10-29 mL/min) *Enoxaparin/Lovenox 30 mg SQ BID (WT < 150 kg, CrCl > 30 mL/min) AND/OR *Sequential Compression Device (SCD) 5 or more Highest Order ONE of the following medications: *Heparin 5000 units SQ TID (Preferred with Epidurals) *Enoxaparin/Lovenox 40 mg SQ daily (WT < 150 kg, CrCl > 30 mL/min) *Enoxaparin/Lovenox 30 mg SQ daily (WT < 150 kg, CrCl > 10-29 mL/min) *Enoxaparin/Lovenox 30 mg SQ BID (WT < 150 kg, CrCl > 30 mL/min) AND *Sequential Compression Device (SCD) Assessment and Plan - Assessment (1) Left arm swelling Code(s): M79.89 - Other specified soft tissue disorders Status: Chronic (2) Seroma after procedure Status: Acute - Plan a 57/M with a PMH of ESRD on HD every M/W/F (LEFT brach-ax /) Pt s/p L UE Fistulogram/axillary vein stent/Seroma evacuation on 08/09/18. Pt w/ continued drainage from his L axillary region and now has a separation at the proximal to mid section of his LEFT axillary incision Pt seen today in our out pt clinic and was directly admitted Plan Consult plastic surgery- Recurrent LEFT axillary seroma Keep dressing to L axillary region dry Pain control Elevate L UE while swelling is present May apply an andree wrap from fingers to LEFT Upper arm while swelling is present Corinne Meadows NP [facility] [phone] - Attending Attestation I Agree with above. PT well known to me and has L UE AVF and relative venous hypertension. Has axillary seroma cavity that is nonhealing, s/p excision of cavity x 2. May ultimately require access ligation to facilitate wound closure. Will ask plastic surgery to evaluate.
--- NOTE | 2018-08-22 17:27 | P.CONNP ---
History of Present Illness Service: Nephrology Consult date: 08/22/18 Requesting Physician: Alli Sauceda Reason for Consult: End-stage renal disease Primary Care Provider: No Primary Care Physician Chief Complaint: Left arm swelling History of Present Illness: Patient is a 57-year-old male with history of end-stage renal disease, diabetes , hypertension, AV fistula creation left brachioaxillary AV fistula on 03/07/2018 , patient developed seroma, this was drained in end of June and then again in July, patient is now admitted with increasing swelling of his left arm again, he goes on dialysis on Wednesday, Wednesday and Wednesday and had his dialysis today 3.5 L removed. He denies any chest pain or shortness of breath. Review of Systems Constitutional: Reports weakness Eyes: Denies blind spots, Denies blurry vision, Denies bulging eyes, Denies change in vision, Denies double vision, Denies discharge, Denies dry eyes, Denies floaters, Denies irritation, Denies itchy eyes, Denies loss of vision, Denies pain, Denies requires corrective lenses, Denies sensitivity to light, Denies other Ears, Nose, Mouth, and Throat: Denies abnormal hearing, Denies bleeding gums, Denies bad breath, Denies change in voice, Denies dental pain, Denies difficulty swallowing, Denies dizziness, Denies dry mouth, Denies ear discharge , Denies ear pain, Denies facial pain, Denies headache(s), Denies hearing loss, Denies hoarseness, Denies lip swelling, Denies nosebleed, Denies mouth lesions, Denies mouth pain, Denies nasal congestion, Denies nasal discharge, Denies nasal obstruction, Denies nasal trauma, Denies neck lump, Denies neck pain, Denies nose pain, Denies pain with swallowing, Denies poor balance, Denies post nasal drip, Denies ringing in the ears, Denies sinus pain, Denies sinus pressure , Denies sore throat, Denies throat swelling, Denies tongue swelling, Denies other Cardiovascular: Reports generalized swelling Respiratory: Denies change in phlegm color, Denies chest congestion, Denies cough, Denies coughing up blood, Denies excessive phlegm production, Denies pain on inspiration, Denies pain with cough, Denies shortness of breath, Denies shortness of breath with activity, Denies snoring, Denies stridor, Denies wheezing, Denies other Gastrointestinal: Denies abdominal pain, Denies belching, Denies black, tarry stools, Denies bloating, Denies bright, red blood in stools, Denies change in bowel habits, Denies constant urge to pass stool, Denies change in stools, Denies coffee ground vomit, Denies constipation, Denies cramping, Denies difficulty swallowing, Denies excessive passing of gas, Denies feeling full early, Denies heartburn, Denies incontinent of stools, Denies loose stools, Denies nausea, Denies pain with swallowing, Denies vomiting, Denies vomiting blood, Denies other Genitourinary: Reports urinary frequency (On dialysis), Reports other Musculoskeletal: Reports radiating pain into limb Skin/Breast: Reports change in skin color Neurologic: Reports weakness Psychiatric: Denies abnormal sleep pattern, Denies anxiety, Denies behavioral changes, Denies change in appetite, Denies change in sex drive, Denies confusion , Denies depression, Denies difficulty concentrating, Denies hearing things others do not hear, Denies hopelessness, Denies irritability, Denies lack of enjoyment, Denies memory loss, Denies mood swings, Denies panic attacks, Denies paranoia, Denies seeing things others do not see, Denies sensing things others do not sense, Denies tactile hallucinations, Denies thoughts of hurting/killing others, Denies thoughts of hurting/killing yourself, Denies other Endocrine: Denies cold intolerance, Denies excessive sweating, Denies flushing, Denies heat intolerance, Denies increased hunger, Denies increased thirst, Denies increased urination, Denies rapid, pounding, or irregular heartbeat, Denies other Hematologic/Lymphatic: Denies easy bleeding, Denies easy bruising, Denies enlarged lymph nodes, Denies other Allergic/Immunologic: Denies GI upset with certain foods, Denies hives, Denies itchy eyes, Denies lip swelling, Denies seasonal runny nose, Denies throat swelling, Denies tongue swelling, Denies wheezing, Denies other PMFSH - History History Provided By: Patient, Family Member - Medical History Medical History: Medical History (Last Reviewed 08/22/18 @ 17:24 by Chito Pereira MD) Hyperlipidemia (Acute) Type 2 diabetes mellitus (Chronic) Hypertension (Chronic) AV fistula (Chronic) GERD (gastroesophageal reflux disease) (Chronic) Kidney failure (Chronic) CHF (congestive heart failure) Dialysis patient History of alcohol use History of illicit drug use Hx of transfusion Obstructive sleep apnea on CPAP Smoking hx TIA (transient ischemic attack) - Surgical History Surgical History: Surgical History (Last Reviewed 08/22/18 @ 17:24 by Chito Pereira MD) H/O left knee surgery Kidney transplant recipient H/O hernia repair (Resolved) H/O inguinal hernia repair (Resolved) S/P ACL repair (Resolved) - Family History Family History: Family History (Last Reviewed 08/22/18 @ 17:24 by Chito Pereira MD) Other Family history non-contributory - Social History I have reviewed the patient's Social History: Yes - Tobacco History Second Hand Smoke Exposure: Yes Smoking Status: Former smoker Tobacco Type: Cigarettes - Alcohol History How Often Do You Have a Drink Containing Alcohol: Never - Substance Use History Substance History: Past History - Immunization History Hx Influenza Vaccine This Season: Yes Medications and Allergies Active Medications: Active Medications Bisacodyl (Dulcolax Supp) 10 mg RECTAL DAILY PRN PRN Reason: SEVERE CONSITIPATION Lactulose (Lactulose Liq) 30 ml PO DAILY PRN PRN Reason: SEVERE CONSITIPATION Ondansetron HCl (Zofran Inj) 4 mg IV.PUSH Q6H PRN PRN Reason: nausea Oxycodone HCl (Roxicodone) 5 mg PO Q4H PRN PRN Reason: PAIN SCALE 1 TO 10 Last Admin: 08/22/18 17:07 Dose: 5 mg Senna/Docusate Sodium (Aline-Colace) 1 tab PO BID KELSIE Sennosides (Senokot) 17.2 mg PO Q12H PRN PRN Reason: Moderate Constipation Allergies Allergy/AdvReac Type Severity Reaction Status Date / Time banana Allergy Severe HIVES Verified 08/09/18 11:31 diaz Allergy Severe Hives Verified 08/09/18 11:31 beet Allergy Severe HIVES Verified 08/09/18 11:31 latex Allergy Severe Hives and Verified 08/09/18 11:31 rash peas Allergy Severe HIVES Verified 08/09/18 11:31 tomato Allergy Severe Hives Verified 08/09/18 11:31 Home Medications Medication Instructions Recorded Confirmed Type amlodipine 10 mg PO DAILY 01/12/18 08/09/18 History atorvastatin [Lipitor] 40 mg PO DAILY 01/12/18 08/09/18 History hydralazine 10 mg PO TID 01/12/18 08/09/18 History insulin glargine [Lantus U-100 20 unit SUB-Q DAILY 01/12/18 08/09/18 History Insulin] magnesium gluconate 500 mg PO DAILY 01/12/18 08/09/18 History pantoprazole [Protonix] 40 mg PO DAILY 01/12/18 08/09/18 History prednisone 20 mg PO DAILY 01/12/18 08/09/18 History sodium bicarbonate 650 mg PO QID 01/12/18 08/09/18 History tacrolimus 1 mg PO BID 01/12/18 08/09/18 History baclofen 10 mg PO DAILY PRN 04/18/18 08/09/18 History cholecalciferol (vitamin D3) 400 unit PO DAILY 04/18/18 08/09/18 History fluticasone [Flonase Allergy 1 spray INTRANASAL DAILY 04/18/18 08/09/18 History Relief] mycophenolate mofetil [CellCept] 500 mg PO DAILY 04/18/18 08/09/18 History ondansetron HCl [Zofran] 4 mg PO Q6-8H PRN 04/18/18 08/09/18 History valganciclovir 450 mg PO DAILY 04/18/18 08/09/18 History vitamin B complex [B-Complex] 1 tab PO DAILY 04/18/18 08/09/18 History insulin lispro [Humalog U-100 See Protocol SUBCUT BID 05/04/18 08/09/18 History Insulin] metoprolol succinate 100 mg PO DAILY 06/16/18 08/09/18 History furosemide [Lasix] 20 mg PO DAILY 07/27/18 08/09/18 History levothyroxine 25 mcg PO DAILY 07/28/18 08/09/18 History Exam Vital signs: Vital Signs 08/22/18 13:50 08/22/18 15:00 08/22/18 16:00 Temperature 97.3 F L 98.4 F Pulse Rate 62 60 63 Respiratory Rate 17 17 Blood Pressure 158/88 H 129/75 Pulse Oximetry 95 94 L Intake & Output 08/21/18 08/22/18 08/22/18 18:59 06:59 18:59 Other: Date of Last Bowel Movement 08/22/18 Narrative: GENERAL: Well-nourished, well-developed patient. SKIN: Warm and dry. HEAD: Normocephalic. EYES: No scleral icterus. No injection or drainage. NECK: Supple, trachea midline. No JVD or lymphadenopathy. CARDIOVASCULAR: Regular rate and rhythm without murmurs, gallops, or rubs. RESPIRATORY: Breath sounds equal bilaterally. No accessory muscle use. GASTROINTESTINAL: Abdomen soft, non-tender, nondistended. EXTREMITIES: Left arm edema AV fistula positive thrill NEUROLOGICAL: Awake, alert, and oriented x 3. Non-focal. Assessment and Plan - Assessment (1) ESRD (end stage renal disease) on dialysis Code(s): N18.6 - End stage renal disease; Z99.2 - Dependence on renal dialysis Status: Chronic Plan: Hemodialysis will be planned for Wednesday, Wednesday and Wednesday continue supportive care Ultrafiltration of 3-4 L He had dialysis today AV fistula been followed by vascular surgery (2) Left arm swelling Code(s): M79.89 - Other specified soft tissue disorders Status: Chronic Plan: Plans per vascular, plastic surgery consulted as there is a hold with just not healing (3) Seroma after procedure Status: Acute Plan: Plastic surgery consulted (4) Type 2 diabetes mellitus Code(s): E11.9 - Type 2 diabetes mellitus without complications Status: Chronic Plan: Maintain blood sugar in the 140-180 range (5) Hypertension Code(s): I10 - Essential (primary) hypertension Status: Chronic Plan: Maintain blood pressure 122 140 systolic and diastolic 70-80
[2018-08-22] MEDS ORDERED: Albumin Human 25% Inj 100 ML IV.SIG PRN (17:28)
[2018-08-22] MEDS ORDERED: Sod Chloride 0.9% Inj 1,000 ML IV.CONT PRN (17:28)
[2018-08-22] MEDS ORDERED: Heparin 10,000 UNITS/10 ML Vial (for IV use) OTHER PRN ×2 (17:28)
[2018-08-22] MEDS ORDERED: Acetaminophen 325 MG Tablet PO PRN (17:28)
[2018-08-22] MEDS ORDERED: Sod Chloride 0.9% Inj 1,000 ML OTHER PRN ×2 (17:28)
[2018-08-22] MEDS ORDERED: Gelatin 12 MM/7 MM Topical Foam TOPICAL PRN (17:28)
[2018-08-22] MEDS: Senna/Docusate Sodium 8.6/50 MG Tablet PO SCH (21:36)
[2018-08-22 22:10] LABS: Hematocrit 41.1 % (39.0-51.0); Hemoglobin 12.7 gm/dL (13.0-17.0); Mean Corpuscular Hemoglobin 25.4 pg (27.0-34.0); Mean Corpuscular Volume 82.1 fL (80.0-100.0); Mean Platelet Volume 8.1 fL (7.0-11.0); Platelet Count 288 th/mm3 (150-450); Red Blood Count 5.01 mil/mm3 (4.50-5.90); Red Cell Distribution Width 20.2 % (11.6-17.2); White Blood Count 6.3 th/mm3 (4.0-11.0)
[2018-08-22 22:28] LABS: Calcium 8.1 mg/dL (8.5-10.1); Carbon Dioxide 29.2 meq/L (21.0-32.0); Potassium 4.7 meq/L (3.5-5.1)
[2018-08-23] MEDS ORDERED: Dextrose 50% in Water 50 ML Vial IV.PUSH PRN (00:10)
[2018-08-23] MEDS: Insulin NovoLOG Aspart Correctional Sugar Inj SQ SCH ×5 (00:18→21:52)
[2018-08-23] MEDS: Insulin Detemir Inj 1,000 UNIT/10 ML Vial SQ SCH (08:18)
[2018-08-23] MEDS: predniSONE 5 MG Tablet PO SCH (08:34)
[2018-08-23] MEDS: amLODIPine 10 MG Tablet PO SCH (08:34)
[2018-08-23] MEDS: Senna/Docusate Sodium 8.6/50 MG Tablet PO SCH ×2 (08:34→20:56)
[2018-08-23] MEDS: hydrALAZINE 25 MG Tablet PO SCH ×3 (08:34→17:53)
--- NOTE | 2018-08-23 10:42 | P.PNNP ---
Subjective Interval history: Patient has left arm swelling Physical Exam Vital signs: Vital Signs 08/22/18 13:50 08/22/18 15:00 08/22/18 16:00 Temperature 97.3 F L 98.4 F Pulse Rate 62 60 63 Respiratory Rate 17 17 Blood Pressure 158/88 H 129/75 Pulse Oximetry 95 94 L 08/22/18 16:22 08/22/18 17:22 08/22/18 18:22 Temperature Pulse Rate 60 64 64 Respiratory Rate Blood Pressure Pulse Oximetry 08/22/18 19:00 08/22/18 20:00 08/22/18 21:00 Temperature 97.3 F L Pulse Rate 64 58 L 70 Respiratory Rate 18 Blood Pressure 131/77 Pulse Oximetry 92 L 08/22/18 22:00 08/22/18 23:00 08/23/18 00:00 Temperature Pulse Rate 60 60 60 Respiratory Rate 16 Blood Pressure 147/88 H Pulse Oximetry 93 L 08/23/18 00:14 08/23/18 01:00 08/23/18 02:00 Temperature Pulse Rate 62 68 Respiratory Rate 16 Blood Pressure Pulse Oximetry 08/23/18 03:00 08/23/18 04:00 08/23/18 05:00 Temperature Pulse Rate 64 71 62 Respiratory Rate 18 Blood Pressure Pulse Oximetry 08/23/18 06:00 08/23/18 07:00 08/23/18 08:00 Temperature 97.5 F L Pulse Rate 62 68 62 Respiratory Rate 15 Blood Pressure 153/93 H Pulse Oximetry 93 L 08/23/18 09:00 08/23/18 10:00 Temperature Pulse Rate 66 64 Respiratory Rate Blood Pressure Pulse Oximetry Intake & Output 08/22/18 08/23/18 08/23/18 18:59 06:59 18:59 Intake Total 320 / 320 480 / 480 Output Total 200 / 200 Balance 320 / 320 280 / 280 Weight 72.9 kg Intake: Oral 320 / 320 480 / 480 Output: Urine 200 / 200 Other: # Voids 2 Date of Last Bowel Movement 08/22/18 08/22/18 # Bowel Movements 1 Narrative: GENERAL: Well-nourished, well-developed patient. SKIN: Warm and dry. HEAD: Normocephalic. EYES: No scleral icterus. No injection or drainage. NECK: Supple, trachea midline. No JVD or lymphadenopathy. CARDIOVASCULAR: Regular rate and rhythm without murmurs, gallops, or rubs. RESPIRATORY: Breath sounds equal bilaterally. No accessory muscle use. GASTROINTESTINAL: Abdomen soft, non-tender, nondistended. EXTREMITIES: Left arm edema AV fistula positive thrill NEUROLOGICAL: Awake, alert, and oriented x 3. Non-focal. Assessment and Plan - Assessment (1) ESRD (end stage renal disease) on dialysis Code(s): N18.6 - End stage renal disease; Z99.2 - Dependence on renal dialysis Status: Chronic Plan: Hemodialysis will be planned for Wednesday, Wednesday and Wednesday continue supportive care Ultrafiltration of 3-4 L Next dialysis is Wednesday AV fistula been followed by vascular surgery (2) Left arm swelling Code(s): M79.89 - Other specified soft tissue disorders Status: Chronic Plan: Plans per vascular, plastic surgery consulted as there is a hold with just not healing (3) Seroma after procedure Status: Acute Plan: Plastic surgery consulted (4) Type 2 diabetes mellitus Code(s): E11.9 - Type 2 diabetes mellitus without complications Status: Chronic Plan: Maintain blood sugar in the 140-180 range (5) Hypertension Code(s): I10 - Essential (primary) hypertension Status: Chronic Plan: Maintain blood pressure 122 140 systolic and diastolic 70-80
--- NOTE | 2018-08-23 10:44 | P.PNVS ---
Subjective Subjective/Hospital Course: 57/M w/ ESRD on HD every M/W/F c/o L arm swelling with drainage from a recurrent left axillary seroma Pt doing well this am and is in good spirits L arm swelling improved with elevation Objective Vital Signs / I&O: Vital Signs 08/22/18 13:50 08/22/18 15:00 08/22/18 16:00 Temperature 97.3 F L 98.4 F Pulse Rate 62 60 63 Respiratory Rate 17 17 Blood Pressure 158/88 H 129/75 Pulse Oximetry 95 94 L 08/22/18 16:22 08/22/18 17:22 08/22/18 18:22 Temperature Pulse Rate 60 64 64 Respiratory Rate Blood Pressure Pulse Oximetry 08/22/18 19:00 08/22/18 20:00 08/22/18 21:00 Temperature 97.3 F L Pulse Rate 64 58 L 70 Respiratory Rate 18 Blood Pressure 131/77 Pulse Oximetry 92 L 08/22/18 22:00 08/22/18 23:00 08/23/18 00:00 Temperature Pulse Rate 60 60 60 Respiratory Rate 16 Blood Pressure 147/88 H Pulse Oximetry 93 L 08/23/18 00:14 08/23/18 01:00 08/23/18 02:00 Temperature Pulse Rate 62 68 Respiratory Rate 16 Blood Pressure Pulse Oximetry 08/23/18 03:00 08/23/18 04:00 08/23/18 05:00 Temperature Pulse Rate 64 71 62 Respiratory Rate 18 Blood Pressure Pulse Oximetry 08/23/18 06:00 08/23/18 07:00 08/23/18 08:00 Temperature 97.5 F L Pulse Rate 62 68 62 Respiratory Rate 15 Blood Pressure 153/93 H Pulse Oximetry 93 L 08/23/18 09:00 08/23/18 10:00 Temperature Pulse Rate 66 64 Respiratory Rate Blood Pressure Pulse Oximetry Intake & Output 08/22/18 08/23/18 08/23/18 18:59 06:59 18:59 Intake Total 320 / 320 480 / 480 Output Total 200 / 200 Balance 320 / 320 280 / 280 Weight 72.9 kg Intake: Oral 320 / 320 480 / 480 Output: Urine 200 / 200 Other: # Voids 2 Date of Last Bowel Movement 08/22/18 08/22/18 # Bowel Movements 1 Physical Exam: + thrill to L AVF No hand pain Improved L UE swelling L axillary incision with separation noted- No graft exposure noted Laboratory Results - last 24 hr 08/22/18 08/22/18 08/22/18 14:28 20:06 20:06 WBC 6.3 RBC 5.01 Hgb 12.7 L Hct 41.1 MCV 82.1 MCH 25.4 L MCHC 31.0 L RDW 20.2 H Plt Count 288 D MPV 8.1 Sodium 138 Potassium 4.7 Chloride 101 Carbon Dioxide 29.2 Anion Gap 8 BUN 42 H Creatinine 4.66 H Estimated GFR 16 L POC Glucose 121 H Random Glucose 286 H Calcium 8.1 L 08/22/18 08/23/18 08/23/18 21:34 02:13 02:31 WBC RBC Hgb Hct MCV MCH MCHC RDW Plt Count MPV Sodium Potassium Chloride Carbon Dioxide Anion Gap BUN Creatinine Estimated GFR POC Glucose 206 H 49 L* 63 L Random Glucose Calcium 08/23/18 07:51 WBC RBC Hgb Hct MCV MCH MCHC RDW Plt Count MPV Sodium Potassium Chloride Carbon Dioxide Anion Gap BUN Creatinine Estimated GFR POC Glucose 177 H Random Glucose Calcium Assessment and Plan - Assessment (1) Left arm swelling Code(s): M79.89 - Other specified soft tissue disorders Status: Chronic (2) Seroma after procedure Status: Acute - Plan a 57/M with a PMH of ESRD on HD every M/W/F (LEFT brach-ax /) Pt s/p L UE Fistulogram/axillary vein stent/Seroma evacuation on 08/09/18. Pt w/ continued drainage from his L axillary region and now has a separation at the proximal to mid section of his LEFT axillary incision Plan Consult plastic surgery- Recurrent LEFT axillary seroma Consult wound care team Consult Nephrology- ESRD on HD (M/W/F) Keep dressing to L axillary region dry Pain control Elevate L UE while swelling is present May apply an andree wrap from fingers to LEFT Upper arm while swelling is present Corinne Meadows NP [facility] [phone]
[2018-08-23] MEDS ORDERED: Morphine Sulfate Inj 2 MG/ML Vial IV.PUSH STA (15:35)
[2018-08-23] MEDS ORDERED: Morphine Sulfate Inj 2 MG/ML Vial IV.PUSH ONE (16:10)
--- NOTE | 2018-08-23 16:51 | P.PNWCN ---
Wound Care Nurse Consult Description: Wound care consulted for wound management and wound vac placement to the left axillary region by Corinne SALAS. Communicated with: Spoke with bedside nurse Karlee MAJOR, Triston SALAS , Dr. Sauceda, and Dr. Espinoza at bedside. Recommendation: Please reinforce dressing with VAC drape if leaking, if still leaking and wound VAC is not suctioning, please remove dressing which includes 2 pieces of foam and xeroform dressing to wound bed and place a normal saline moistened gauze packed loosely to wound and and cover with dry gauze, ABD pad and rolled gauze. Change daily and PRN as needed if saturated or dislodged until wound care can reapply wound VAC dressing. Wound care nurse will be changing dressing every Wednesday and . Additional information: Patient seen today in [facility] by wound care and Dr. Whitaker for wound vac placement. Patient premedicated for pain prior. Patient positioned in bed laying flat with left arm above head. Dr. Martinez at bedside. MD removed sutures to left axillary surgical wound and assessed wound. Md then applied Xeroform to undermining area at the 11 to 1 o'clock site which includes graft site. MD then applied white foam to undermined area to the 4 to 9 o'clock site. Wound care nurse then applied Cavilon skin barrier spray to eneida wound and bridge site. Jordan seal applied to the eneida wound. Wound vac drape applied to the eneida wound then to the bridge site. 1 piece of black foam applied to the wound bed. Wound vac then bridged to the left anterior upper arm avoiding access site for dialysis. Wound vac placed on continuous suction set at 75mmHg. Serous drainage noted and seal intact. Dressing was then secured with rolled gauze and elastic wrap. Recommendations given to bedside nurse. Wound/Pressure Injury - Patient Status Premedicated for Pain Prior to Dressing Change: Yes (By bedside nurse) - Wound Left Axilla Surgical wound Wound Assessment: Ongoing Wound Type: Traumatic Wound Requested from Provider a Wound Care Consult: Yes (Patient seen today by wound care nurse) Length (cm): 6 Width (cm): 2.5 Depth (cm): 1 (~1 cm) Wound Bed Appearance: Red, Tunneling/Undermining (Undermining noted from 11 to 1 o'clock and 4 to 9 o'clock deepest at 8 o'clock ~4 cm), White Wound Bed Appearance: ~ 80% Red tissue and ~20% white tissue Surrounding Tissue Appearance: Blanched/Dull Surrounding Tissue Temperature: Warm Drainage Description: Serous Drainage Amount: Copious Drainage Odor: No Odor Dressing Status: Changed Cleansing Solution: Saline Wound Packing Type: Woundvac Sponge (Xeroform gauze, 1 piece of white wound vac foam the 1 piece of black foam) Primary Dressing: Negative Pressure Wound Dressing Wound Dressing Change Date: 08/23/18 Wound Margin Description: Margins are unattached and well defined Wound Vac - Wound Vac Left Axilla Surgical wound Pressure Setting (mmHg): 75 Mode Setting: Continuous Drainage Description: Serous Foam type: Other (1 piece of white wound vac foam and 1 piece of black foam)
--- NOTE | 2018-08-23 18:46 | P.CON ---
History of Present Illness Service: Plastic surgery Consult date: 08/23/18 Reason for Consult: Left axillary wound Primary Care Provider: No Primary Care Physician Chief Complaint: Left arm swelling History of Present Illness: 57-year-old male, status post failed kidney transplant, now on hemodialysis, with left brachial axillary graft, status post multiple recent attempts at left axillary seroma excision, with incisional dehiscence several days ago. Consult placed for wound recommendations. Patient reports mild to moderate pain in the area. His primary complaint is of significant serous drainage. Except as noted in the HPI review of systems negative to presenting complaint Allergies, see list Past medical history/past surgical history Hyperlipidemia (Acute) Type 2 diabetes mellitus (Chronic) Hypertension (Chronic) AV fistula (Chronic) GERD (gastroesophageal reflux disease) (Chronic) Kidney failure (Chronic) CHF (congestive heart failure) Dialysis patient History of alcohol use History of illicit drug use Hx of transfusion Obstructive sleep apnea on CPAP Smoking hx TIA (transient ischemic attack) H/O left knee surgery Kidney transplant recipient H/O hernia repair (Resolved) H/O inguinal hernia repair (Resolved) S/P ACL repair (Resolved) Pt s/p LEFT brach-ax on 03/07/18, after a failed L UE brachiobasilic AVF that was created on 01/12/18 that occluded and was then ligated. Pt underwent a LEFT upper extremity fistulogram w/ percutaneous transluminal angioplasty of central vein on 07/05/18. Pt also presented with a recurrent axillary seroma that has been draining clear fluid for the past several weeks that was drained on 07/12/18. Pt underwent a Left axillary seromadrainage and excision of perianastomotic capsule on 07/28/18 Pt underwent a L UE Fistulogram/axillary vein stent/Seroma evacuation on . Except as noted in the HPI review of systems negative to presenting complaint Family history noncontributory to presenting complaint Social history former smoker Medication list reviewed PMFSH - History History Provided By: Patient, Family Member - Medical History Medical History: Medical History (Last Reviewed 08/22/18 @ 17:24 by Chito Pereira MD) Hyperlipidemia (Acute) Type 2 diabetes mellitus (Chronic) Hypertension (Chronic) AV fistula (Chronic) GERD (gastroesophageal reflux disease) (Chronic) Kidney failure (Chronic) CHF (congestive heart failure) Dialysis patient History of alcohol use History of illicit drug use Hx of transfusion Obstructive sleep apnea on CPAP Smoking hx TIA (transient ischemic attack) - Surgical History Surgical History: Surgical History (Last Reviewed 08/22/18 @ 17:24 by Chito Pereira MD) H/O left knee surgery Kidney transplant recipient H/O hernia repair (Resolved) H/O inguinal hernia repair (Resolved) S/P ACL repair (Resolved) - Family History Family History: Family History (Last Reviewed 08/22/18 @ 17:24 by Chito Pereira MD) Other Family history non-contributory - Tobacco History Second Hand Smoke Exposure: Yes Tobacco Use In Past 30 Days: No Smoking Status: Former smoker Tobacco Type: Cigarettes - Alcohol History How Often Do You Have a Drink Containing Alcohol: Never - Substance Use History Substance History: No History of Abuse - Immunization History Hx Influenza Vaccine This Season: Yes Medications and Allergies Active Medications: Active Medications Amlodipine Besylate (Norvasc) 10 mg PO DAILY [facility] Last Admin: 08/23/18 08:34 Dose: 10 mg Atorvastatin Calcium (Lipitor) 80 mg PO [facility] Last Admin: 08/23/18 01:37 Dose: Not Given Bisacodyl (Dulcolax Supp) 10 mg RECTAL DAILY PRN PRN Reason: SEVERE CONSITIPATION Clonidine HCl (Catapres) 0.1 mg PO UNSCH PRN PRN Reason: SEE LABEL COMMENTS Dextrose (D50w Vial) 50 ml IV.PUSH UNSCH PRN PRN Reason: PER HYPOGLYCEMIA PROTOCOL Diphenhydramine HCl (Benadryl) 25 mg PO UNSCH PRN PRN Reason: SEE LABEL COMMENTS Epoetin Vin (Epogen Inj) 6,000 unit IV.PUSH UNSCH PRN PRN Reason: SEE LABEL COMMENTS Gelatin (Gelfoam 12 Mm/7 Mm Topical) 1 foam TOPICAL PRN PRN PRN Reason: help stop bleeding from site Gentamicin Sulfate (Gentamicin Inj) 20 mg OTHER WITH DIALYSIS PRN PRN Reason: Dwell Gentamycin Lock Glucagon (Glucagon Inj) 1 mg OTHER PRN PRN PRN Reason: for Hypoglycemia Protocol Heparin Sodium (Porcine) (Heparin Inj) 8,000 units OTHER WITH DIALYSIS PRN PRN Reason: for machine prime Heparin Sodium (Porcine) (Heparin Inj) 1,000 units OTHER WITH DIALYSIS PRN PRN Reason: Dwell Heparin to Fill Catheter Hydralazine HCl (Apresoline) 25 mg PO TID [facility] Last Admin: 08/23/18 17:53 Dose: 25 mg Albumin Human (Flexbumin 25% Inj) 100 mls @ 60 mls/hr IV.SIG WITH DIALYSIS PRN PRN Reason: hypotension / volume replace Sodium Chloride (Ns Inj) 1,000 mls @ 0 mls/hr OTHER .Q0M PRN PRN Reason: for prime and rinse back Sodium Chloride (Ns Inj) 1,000 mls @ 200 mls/hr OTHER .Q5H PRN PRN Reason: for dialyzer flush PRN Sodium Chloride (Ns Inj) 1,000 mls @ 0 mls/hr IV.CONT .Q0M PRN PRN Reason: hypotension / volume replace Insulin Aspart (Novolog Insulin Correctional Sugar Inj) 0 unit SQ ACHS [facility]; Protocol Last Admin: 08/23/18 17:41 Dose: Not Given Insulin Detemir (Levemir Inj) 20 unit SQ DAILY@0700 [facility] Last Admin: 08/23/18 08:18 Dose: 20 unit Lactulose (Lactulose Liq) 30 ml PO DAILY PRN PRN Reason: SEVERE CONSITIPATION Levothyroxine Sodium (Synthroid) 25 mcg PO DAILY@0600 [facility] Last Admin: 08/23/18 08:18 Dose: 25 mcg Mannitol (Mannitol Inj) 12.5 gm IV.PUSH UNSCH PRN PRN Reason: hypotension / volume replace Metoprolol Succinate (Toprol Xl) 100 mg PO DAILY [facility] Last Admin: 08/23/18 08:34 Dose: 100 mg Mycophenolate Mofetil (Cellcept) 500 mg PO DAILY@0600 [facility] Last Admin: 08/23/18 08:18 Dose: 500 mg Nitroglycerin (Nitrostat Sl) 0.4 mg SL Q5M PRN PRN Reason: CHEST PAIN Ondansetron HCl (Zofran Inj) 4 mg IV.PUSH Q6H PRN PRN Reason: nausea Ondansetron HCl (Zofran Inj) 4 mg IV.PUSH UNSCH PRN PRN Reason: NAUSEA OR VOMITING Oxycodone HCl (Roxicodone) 5 mg PO Q4H PRN PRN Reason: PAIN SCALE 1 TO 10 Last Admin: 08/23/18 17:57 Dose: 5 mg Pantoprazole Sodium (Protonix) 40 mg PO DAILY [facility] Last Admin: 08/23/18 08:33 Dose: 40 mg Prednisone (Deltasone) 5 mg PO DAILY [facility] Last Admin: 08/23/18 08:34 Dose: 5 mg Senna/Docusate Sodium (Aline-Colace) 1 tab PO BID [facility] Last Admin: 08/23/18 08:34 Dose: 1 tab Sennosides (Senokot) 17.2 mg PO Q12H PRN PRN Reason: Moderate Constipation Sodium Chloride (Ns Flush) 5 ml IV.FLUSH PRN PRN PRN Reason: flush each lumen during HD Tacrolimus (Prograf) 3 mg PO BID@0600,1800 [facility] Last Admin: 08/23/18 17:53 Dose: 3 mg Allergies Allergy/AdvReac Type Severity Reaction Status Date / Time banana Allergy Severe HIVES Verified 08/09/18 11:31 diaz Allergy Severe Hives Verified 08/09/18 11:31 beet Allergy Severe HIVES Verified 08/09/18 11:31 latex Allergy Severe Hives and Verified 08/09/18 11:31 rash peas Allergy Severe HIVES Verified 08/09/18 11:31 tomato Allergy Severe Hives Verified 08/09/18 11:31 Home Medications Medication Instructions Recorded Confirmed Type amlodipine 10 mg PO DAILY 01/12/18 08/09/18 History atorvastatin [Lipitor] 40 mg PO DAILY 01/12/18 08/09/18 History hydralazine 10 mg PO TID 01/12/18 08/09/18 History insulin glargine [Lantus U-100 20 unit SUB-Q DAILY 01/12/18 08/09/18 History Insulin] magnesium gluconate 500 mg PO DAILY 01/12/18 08/09/18 History pantoprazole [Protonix] 40 mg PO DAILY 01/12/18 08/23/18 History prednisone 20 mg PO DAILY 01/12/18 08/23/18 History sodium bicarbonate 650 mg PO BID 01/12/18 08/23/18 History tacrolimus 1 mg PO BID 01/12/18 08/23/18 History baclofen 10 mg PO DAILY PRN 04/18/18 08/09/18 History cholecalciferol (vitamin D3) 400 unit PO DAILY 04/18/18 08/09/18 History fluticasone [Flonase Allergy 1 spray INTRANASAL DAILY 04/18/18 08/09/18 History Relief] mycophenolate mofetil [CellCept] 500 mg PO DAILY 04/18/18 08/09/18 History ondansetron HCl [Zofran] 4 mg PO Q6-8H PRN 04/18/18 08/23/18 History valganciclovir 450 mg PO DAILY 04/18/18 08/23/18 History vitamin B complex [B-Complex] 1 tab PO DAILY 04/18/18 08/23/18 History insulin lispro [Humalog U-100 See Protocol SUBCUT BID 05/04/18 08/09/18 History Insulin] metoprolol succinate 100 mg PO DAILY 06/16/18 08/09/18 History furosemide [Lasix] 20 mg PO DAILY 07/27/18 08/09/18 History levothyroxine 25 mcg PO DAILY 07/28/18 08/09/18 History Physical Exam Vital signs: Vital Signs 08/22/18 19:00 08/22/18 20:00 08/22/18 21:00 Temperature 97.3 F L Pulse Rate 64 58 L 70 Respiratory Rate 18 Blood Pressure 131/77 Pulse Oximetry 92 L 08/22/18 22:00 08/22/18 23:00 08/23/18 00:00 Temperature Pulse Rate 60 60 60 Respiratory Rate 16 Blood Pressure 147/88 H Pulse Oximetry 93 L 08/23/18 00:14 08/23/18 01:00 08/23/18 02:00 Temperature Pulse Rate 62 68 Respiratory Rate 16 Blood Pressure Pulse Oximetry 08/23/18 03:00 08/23/18 04:00 08/23/18 05:00 Temperature Pulse Rate 64 71 62 Respiratory Rate 18 Blood Pressure Pulse Oximetry 08/23/18 06:00 08/23/18 07:00 08/23/18 08:00 Temperature 97.5 F L Pulse Rate 62 67 62 Respiratory Rate 15 Blood Pressure 153/93 H Pulse Oximetry 94 L 08/23/18 09:00 08/23/18 10:00 08/23/18 11:00 Temperature Pulse Rate 66 64 62 Respiratory Rate Blood Pressure Pulse Oximetry 08/23/18 12:00 08/23/18 12:09 08/23/18 13:00 Temperature 97.7 F Pulse Rate 62 65 66 Respiratory Rate 18 Blood Pressure 151/81 H Pulse Oximetry 93 L 08/23/18 14:00 08/23/18 15:00 08/23/18 16:00 Temperature Pulse Rate 64 62 62 Respiratory Rate Blood Pressure Pulse Oximetry 08/23/18 16:44 08/23/18 17:00 08/23/18 18:00 Temperature 98.3 F Pulse Rate 62 62 64 Respiratory Rate 16 Blood Pressure 148/96 H Pulse Oximetry 93 L Intake & Output 08/22/18 08/23/18 08/23/18 18:59 06:59 18:59 Intake Total 320 / 320 480 / 480 960 / 960 Output Total 200 / 200 175 / 175 Balance 320 / 320 280 / 280 785 / 785 Weight 72.9 kg 72.121 kg Intake: Oral 320 / 320 480 / 480 960 / 960 Output: Urine 200 / 200 175 / 175 Other: Mode Setting Left Axilla Surgical wound Continuous # Voids 2 Date of Last Bowel Movement 08/22/18 08/22/18 08/23/18 # Bowel Movements 1 Weight On Admission 72.121 kg Narrative: No apparent anxiety Moist mucous membranes PERRLA Skin without rash Respirations unlabored Moves all 4 extremities to command Digits warm well perfused Left axillary HD access with appropriate palpable thrill Left proximal anteromedial upper arm with 11 cm incision with central 4 cm dehiscence No adjacent erythema Copious serous drainage Results - Labs CBC & Chem 7: 08/22/18 20:06 08/22/18 20:06 Labs: Laboratory Results - last 24 hr 08/22/18 08/22/18 08/22/18 20:06 20:06 21:34 WBC 6.3 RBC 5.01 Hgb 12.7 L Hct 41.1 MCV 82.1 MCH 25.4 L MCHC 31.0 L RDW 20.2 H Plt Count 288 D MPV 8.1 Sodium 138 Potassium 4.7 Chloride 101 Carbon Dioxide 29.2 Anion Gap 8 BUN 42 H Creatinine 4.66 H Estimated GFR 16 L POC Glucose 206 H Random Glucose 286 H Calcium 8.1 L 08/23/18 08/23/18 08/23/18 02:13 02:31 07:51 WBC RBC Hgb Hct MCV MCH MCHC RDW Plt Count MPV Sodium Potassium Chloride Carbon Dioxide Anion Gap BUN Creatinine Estimated GFR POC Glucose 49 L* 63 L 177 H Random Glucose Calcium 08/23/18 16:46 WBC RBC Hgb Hct MCV MCH MCHC RDW Plt Count MPV Sodium Potassium Chloride Carbon Dioxide Anion Gap BUN Creatinine Estimated GFR POC Glucose 83 Random Glucose Calcium Assessment and Plan - Assessment (1) Open upper arm wound Code(s): S41.109A - Unspecified open wound of unspecified upper arm, initial encounter Status: Acute (2) Left arm swelling Code(s): M79.89 - Other specified soft tissue disorders Status: Chronic (3) Seroma after procedure Status: Acute - Plan 57-year-old male with left upper arm wound status post multiple attempts at seroma excision with resultant dehiscence Risk benefits alternative treatments discussed All questions answered the patient expressed understanding Following initial interview with the patient, extensive discussion had with Dr. Sauceda who concurs with plan for VAC dressing as he feels that vascular graft has adequate soft tissue coverage it from the wound Patient elected to assume the risks of VAC dressing therapy Following consult with wound nurses, VAC dressing placed at bedside Plan is for VAC dressing changes twice weekly Please call with questions
[2018-08-23 19:15] LABS: Hematocrit 38.7 % (39.0-51.0); Hemoglobin 12.1 gm/dL (13.0-17.0); Mean Corpuscular HGB Conc 31.4 % (32.0-36.0); Mean Corpuscular Hemoglobin 25.5 pg (27.0-34.0); Mean Corpuscular Volume 81.4 fL (80.0-100.0); Mean Platelet Volume 7.4 fL (7.0-11.0); Platelet Count 262 th/mm3 (150-450); Red Blood Count 4.75 mil/mm3 (4.50-5.90); White Blood Count 7.3 th/mm3 (4.0-11.0)
[2018-08-23 19:24] LABS: Carbon Dioxide 24.3 meq/L (21.0-32.0); Potassium 4.9 meq/L (3.5-5.1)
[2018-08-24] MEDS: Insulin Detemir Inj 1,000 UNIT/10 ML Vial SQ SCH (06:14)
[2018-08-24] MEDS: Insulin NovoLOG Aspart Correctional Sugar Inj SQ SCH ×4 (08:05→20:47)
--- NOTE | 2018-08-24 10:19 | P.PNNP ---
Subjective Interval history: Patient is seen during hemodialysis Physical Exam Vital signs: Vital Signs 08/23/18 11:00 08/23/18 12:00 08/23/18 12:09 Temperature 97.7 F Pulse Rate 62 62 65 Respiratory Rate 18 Blood Pressure 151/81 H Pulse Oximetry 93 L 08/23/18 13:00 08/23/18 14:00 08/23/18 15:00 Temperature Pulse Rate 66 64 62 Respiratory Rate Blood Pressure Pulse Oximetry 08/23/18 16:00 08/23/18 16:44 08/23/18 17:00 Temperature 98.3 F Pulse Rate 62 62 62 Respiratory Rate 16 Blood Pressure 148/96 H Pulse Oximetry 93 L 08/23/18 18:00 08/23/18 19:00 08/23/18 19:56 Temperature 98.0 F Pulse Rate 64 67 58 L Respiratory Rate 18 Blood Pressure 148/84 H Pulse Oximetry 96 08/23/18 20:00 08/23/18 21:52 08/23/18 22:00 Temperature Pulse Rate 65 68 66 Respiratory Rate Blood Pressure Pulse Oximetry 96 08/23/18 23:00 08/24/18 00:00 08/24/18 01:00 Temperature 99.3 F Pulse Rate 69 71 60 Respiratory Rate 16 Blood Pressure 151/85 H Pulse Oximetry 94 L 08/24/18 02:00 08/24/18 03:00 08/24/18 04:00 Temperature 98.1 F Pulse Rate 77 75 60 Respiratory Rate 18 Blood Pressure 147/73 H Pulse Oximetry 96 08/24/18 05:00 08/24/18 06:00 08/24/18 07:00 Temperature Pulse Rate 62 66 63 Respiratory Rate Blood Pressure Pulse Oximetry 08/24/18 08:00 08/24/18 09:00 08/24/18 10:00 Temperature 98.3 F Pulse Rate 66 70 64 Respiratory Rate 18 Blood Pressure 150/81 H Pulse Oximetry 92 L Intake & Output 08/23/18 08/24/18 08/24/18 18:59 06:59 18:59 Intake Total 960 / 960 480 / 480 Output Total 175 / 175 700 / 700 Balance 785 / 785 -220 / -220 Weight 72.121 kg 70.9 kg Intake: Oral 960 / 960 480 / 480 Output: Urine 175 / 175 700 / 700 Other: Mode Setting Left Axilla Surgical wound Continuous Continuous Continuous Date of Last Bowel Movement 08/23/18 08/23/18 08/23/18 Weight On Admission 72.121 kg Narrative: GENERAL: Well-nourished, well-developed patient. SKIN: Warm and dry. HEAD: Normocephalic. EYES: No scleral icterus. No injection or drainage. NECK: Supple, trachea midline. No JVD or lymphadenopathy. CARDIOVASCULAR: Regular rate and rhythm without murmurs, gallops, or rubs. RESPIRATORY: Breath sounds equal bilaterally. No accessory muscle use. GASTROINTESTINAL: Abdomen soft, non-tender, nondistended. EXTREMITIES: Left arm swollen NEUROLOGICAL: Awake, alert, and oriented x 3. Non-focal. Assessment and Plan - Assessment (1) ESRD (end stage renal disease) on dialysis Code(s): N18.6 - End stage renal disease; Z99.2 - Dependence on renal dialysis Status: Chronic Plan: Hemodialysis will be planned for Wednesday, Wednesday and Wednesday continue supportive care Patient seen during hemodialysis tolerating it well 2 L of ultrafiltration today on 2K bath Next dialysis is Wednesday AV fistula been followed by vascular surgery, wound care plastic surgery advised VAC dressing He has seroma (2) Left arm swelling Code(s): M79.89 - Other specified soft tissue disorders Status: Chronic Plan: Plans per vascular, plastic surgery wound care following as there is a hole just not healing (3) Seroma after procedure Status: Acute Plan: Plastic surgery consulted (4) Type 2 diabetes mellitus Code(s): E11.9 - Type 2 diabetes mellitus without complications Status: Chronic Plan: Maintain blood sugar in the 140-180 range (5) Hypertension Code(s): I10 - Essential (primary) hypertension Status: Chronic Plan: Maintain blood pressure 122 140 systolic and diastolic 70-80
--- NOTE | 2018-08-24 10:29 | P.PNVS ---
Subjective Subjective/Hospital Course: pt s/p VAC application yesterday resting in HD Objective Vital Signs / I&O: Vital Signs 08/23/18 11:00 08/23/18 12:00 08/23/18 12:09 Temperature 97.7 F Pulse Rate 62 62 65 Respiratory Rate 18 Blood Pressure 151/81 H Pulse Oximetry 93 L 08/23/18 13:00 08/23/18 14:00 08/23/18 15:00 Temperature Pulse Rate 66 64 62 Respiratory Rate Blood Pressure Pulse Oximetry 08/23/18 16:00 08/23/18 16:44 08/23/18 17:00 Temperature 98.3 F Pulse Rate 62 62 62 Respiratory Rate 16 Blood Pressure 148/96 H Pulse Oximetry 93 L 08/23/18 18:00 08/23/18 19:00 08/23/18 19:56 Temperature 98.0 F Pulse Rate 64 67 58 L Respiratory Rate 18 Blood Pressure 148/84 H Pulse Oximetry 96 08/23/18 20:00 08/23/18 21:52 08/23/18 22:00 Temperature Pulse Rate 65 68 66 Respiratory Rate Blood Pressure Pulse Oximetry 96 08/23/18 23:00 08/24/18 00:00 08/24/18 01:00 Temperature 99.3 F Pulse Rate 69 71 60 Respiratory Rate 16 Blood Pressure 151/85 H Pulse Oximetry 94 L 08/24/18 02:00 08/24/18 03:00 08/24/18 04:00 Temperature 98.1 F Pulse Rate 77 75 60 Respiratory Rate 18 Blood Pressure 147/73 H Pulse Oximetry 96 08/24/18 05:00 08/24/18 06:00 08/24/18 07:00 Temperature Pulse Rate 62 66 63 Respiratory Rate Blood Pressure Pulse Oximetry 08/24/18 08:00 08/24/18 09:00 08/24/18 10:00 Temperature 98.3 F Pulse Rate 66 70 64 Respiratory Rate 18 Blood Pressure 150/81 H Pulse Oximetry 92 L Intake & Output 08/23/18 08/24/18 08/24/18 18:59 06:59 18:59 Intake Total 960 / 960 480 / 480 Output Total 175 / 175 700 / 700 Balance 785 / 785 -220 / -220 Weight 72.121 kg 70.9 kg Intake: Oral 960 / 960 480 / 480 Output: Urine 175 / 175 700 / 700 Other: Mode Setting Left Axilla Surgical wound Continuous Continuous Continuous Date of Last Bowel Movement 08/23/18 08/23/18 08/23/18 Weight On Admission 72.121 kg Physical Exam: L UE swollen + thrill, dany HD Laboratory Results - last 24 hr 08/23/18 08/23/18 08/23/18 16:46 18:49 18:49 WBC 7.3 RBC 4.75 Hgb 12.1 L Hct 38.7 L MCV 81.4 MCH 25.5 L MCHC 31.4 L RDW 20.0 H Plt Count 262 MPV 7.4 Sodium 136 Potassium 4.9 Chloride 101 Carbon Dioxide 24.3 Anion Gap 11 BUN 54 H Creatinine 5.43 H Estimated GFR 13 L POC Glucose 83 Random Glucose 138 H D Calcium 8.0 L 08/23/18 08/24/18 19:51 08:19 WBC RBC Hgb Hct MCV MCH MCHC RDW Plt Count MPV Sodium Potassium Chloride Carbon Dioxide Anion Gap BUN Creatinine Estimated GFR POC Glucose 213 H 132 H Random Glucose Calcium Assessment and Plan - Assessment (1) Left arm swelling Code(s): M79.89 - Other specified soft tissue disorders Status: Chronic (2) Seroma after procedure Status: Acute - Plan L axillary seroma 1. will set up Home Health and anticipate d/c tomorrow 2. Will f/u with plastic surgery for VAC/wound progress 3. Will f/u with me as well Discharge Planning: potentially if home health set up
[2018-08-24] MEDS: hydrALAZINE 25 MG Tablet PO SCH ×2 (16:38→17:10)
[2018-08-24] MEDS: predniSONE 5 MG Tablet PO SCH (16:38)
[2018-08-24] MEDS: amLODIPine 10 MG Tablet PO SCH (16:38)
[2018-08-24] MEDS: Senna/Docusate Sodium 8.6/50 MG Tablet PO SCH ×2 (16:39→20:37)
[2018-08-25] MEDS: Insulin Detemir Inj 1,000 UNIT/10 ML Vial SQ SCH (06:17)
[2018-08-25] MEDS: Insulin NovoLOG Aspart Correctional Sugar Inj SQ SCH ×4 (08:38→22:06)
[2018-08-25] MEDS: Senna/Docusate Sodium 8.6/50 MG Tablet PO SCH ×2 (08:39→22:06)
[2018-08-25] MEDS: hydrALAZINE 25 MG Tablet PO SCH ×3 (08:39→18:03)
[2018-08-25] MEDS: predniSONE 5 MG Tablet PO SCH (08:40)
[2018-08-25] MEDS: amLODIPine 10 MG Tablet PO SCH (08:40)
--- NOTE | 2018-08-25 09:58 | P.PNVS ---
Subjective Subjective/Hospital Course: pt s/p VAC application dany HD arm still swollen but hand not bothering him Objective Vital Signs / I&O: Vital Signs 08/24/18 10:00 08/24/18 11:00 08/24/18 12:10 Temperature 97.9 F Pulse Rate 64 68 70 Respiratory Rate 18 Blood Pressure 156/78 H Pulse Oximetry 96 08/24/18 13:48 08/24/18 15:00 08/24/18 15:20 Temperature Pulse Rate 72 Respiratory Rate 18 Blood Pressure Pulse Oximetry 97 08/24/18 17:00 08/24/18 17:35 08/24/18 18:00 Temperature 98.6 F Pulse Rate 80 64 86 Respiratory Rate 20 Blood Pressure 144/82 H Pulse Oximetry 94 L 08/24/18 19:00 08/24/18 20:00 08/24/18 21:00 Temperature 98.4 F Pulse Rate 75 74 82 Respiratory Rate 22 Blood Pressure 163/93 H Pulse Oximetry 93 L 08/24/18 21:39 08/24/18 22:00 08/24/18 23:00 Temperature Pulse Rate 76 77 Respiratory Rate Blood Pressure Pulse Oximetry 97 08/24/18 23:11 08/24/18 23:12 08/25/18 00:00 Temperature 98.8 F Pulse Rate 75 72 Respiratory Rate 20 20 Blood Pressure 154/77 H Pulse Oximetry 97 08/25/18 01:00 08/25/18 02:00 08/25/18 03:00 Temperature Pulse Rate 72 70 70 Respiratory Rate Blood Pressure Pulse Oximetry 08/25/18 04:00 08/25/18 05:00 08/25/18 06:00 Temperature 98.9 F Pulse Rate 71 68 69 Respiratory Rate 16 Blood Pressure 148/82 H Pulse Oximetry 95 08/25/18 07:30 08/25/18 09:46 Temperature 98.3 F Pulse Rate 68 Respiratory Rate 15 Blood Pressure 145/87 H Pulse Oximetry 96 96 Intake & Output 08/24/18 08/25/18 08/25/18 18:59 06:59 18:59 Intake Total 320 / 320 480 / 480 Output Total 1999 900 / 900 Balance -1680 / -1680 -420 / -420 Weight 70.8 kg Intake: Oral 320 / 320 480 / 480 Output: Urine 450 / 450 Hemodialysis Amount 1999 Wound Vac Amount 450 / 450 Left Axilla Surgical wound 450 / 450 Other: Mode Setting Left Axilla Surgical wound Continuous Continuous # Voids 2 Date of Last Bowel Movement 08/23/18 08/23/18 Physical Exam: L UE with + thrill arm swollen vac in place - clear fluid Laboratory Results - last 24 hr 08/24/18 08/24/18 08/24/18 11:53 17:02 20:38 POC Glucose 145 H 213 H 209 H 08/25/18 07:04 POC Glucose 180 H Assessment and Plan - Assessment (1) Left arm swelling Code(s): M79.89 - Other specified soft tissue disorders Status: Chronic (2) Seroma after procedure Status: Acute - Plan L axillary seroma, now s/p VAC; appreciate plastics assistance 1. will set up Home Health and anticipate d/c Wednesday after HD 2. Will f/u with plastic surgery for VAC/wound progress 3. Will f/u with me as well Discharge Planning: potentially if home health set up
--- NOTE | 2018-08-25 10:56 | P.PNNP ---
Subjective Interval history: Patient is complaining of pain in left hand Physical Exam Vital signs: Vital Signs 08/24/18 11:00 08/24/18 12:10 08/24/18 13:48 Temperature 97.9 F Pulse Rate 68 70 Respiratory Rate 18 Blood Pressure 156/78 H Pulse Oximetry 96 97 08/24/18 15:00 08/24/18 15:20 08/24/18 17:00 Temperature Pulse Rate 72 80 Respiratory Rate 18 Blood Pressure Pulse Oximetry 08/24/18 17:35 08/24/18 18:00 08/24/18 19:00 Temperature 98.6 F Pulse Rate 64 86 75 Respiratory Rate 20 Blood Pressure 144/82 H Pulse Oximetry 94 L 08/24/18 20:00 08/24/18 21:00 08/24/18 21:39 Temperature 98.4 F Pulse Rate 74 82 Respiratory Rate 22 Blood Pressure 163/93 H Pulse Oximetry 93 L 97 08/24/18 22:00 08/24/18 23:00 08/24/18 23:11 Temperature 98.8 F Pulse Rate 76 77 75 Respiratory Rate 20 Blood Pressure 154/77 H Pulse Oximetry 97 08/24/18 23:12 08/25/18 00:00 08/25/18 01:00 Temperature Pulse Rate 72 72 Respiratory Rate 20 Blood Pressure Pulse Oximetry 08/25/18 02:00 08/25/18 03:00 08/25/18 04:00 Temperature 98.9 F Pulse Rate 70 70 71 Respiratory Rate 16 Blood Pressure 148/82 H Pulse Oximetry 95 08/25/18 05:00 08/25/18 06:00 08/25/18 07:30 Temperature 98.3 F Pulse Rate 68 69 68 Respiratory Rate 15 Blood Pressure 145/87 H Pulse Oximetry 96 08/25/18 09:46 Temperature Pulse Rate Respiratory Rate Blood Pressure Pulse Oximetry 96 Intake & Output 08/24/18 08/25/18 08/25/18 18:59 06:59 18:59 Intake Total 320 / 320 480 / 480 Output Total 1999 900 / 900 Balance -1680 / -1680 -420 / -420 Weight 70.8 kg Intake: Oral 320 / 320 480 / 480 Output: Urine 450 / 450 Hemodialysis Amount 1999 Wound Vac Amount 450 / 450 Left Axilla Surgical wound 450 / 450 Other: Mode Setting Left Axilla Surgical wound Continuous Continuous # Voids 2 Date of Last Bowel Movement 08/23/18 08/23/18 Narrative: GENERAL: Well-nourished, well-developed patient. SKIN: Warm and dry. HEAD: Normocephalic. EYES: No scleral icterus. No injection or drainage. NECK: Supple, trachea midline. No JVD or lymphadenopathy. CARDIOVASCULAR: Regular rate and rhythm without murmurs, gallops, or rubs. RESPIRATORY: Breath sounds equal bilaterally. No accessory muscle use. GASTROINTESTINAL: Abdomen soft, non-tender, nondistended. EXTREMITIES: Left arm swollen NEUROLOGICAL: Awake, alert, and oriented x 3. Non-focal. Assessment and Plan - Assessment (1) ESRD (end stage renal disease) on dialysis Code(s): N18.6 - End stage renal disease; Z99.2 - Dependence on renal dialysis Status: Chronic Plan: Hemodialysis will be planned for Wednesday, Wednesday and Wednesday continue supportive care Patient had hemodialysis yesterday Next dialysis is Wednesday AV fistula been followed by vascular surgery, wound care plastic surgery advised VAC dressing He has seroma Left arm swelling wrapped in Renato bandage Next dialysis tomorrow (2) Left arm swelling Code(s): M79.89 - Other specified soft tissue disorders Status: Chronic Plan: Plans per vascular, plastic surgery wound care following as there is a hole just not healing (3) Seroma after procedure Status: Acute Plan: Plastic surgery consulted (4) Type 2 diabetes mellitus Code(s): E11.9 - Type 2 diabetes mellitus without complications Status: Chronic Plan: Maintain blood sugar in the 140-180 range (5) Hypertension Code(s): I10 - Essential (primary) hypertension Status: Chronic Plan: Maintain blood pressure 122 140 systolic and diastolic 70-80
[2018-08-25] MEDS ORDERED: Morphine Sulfate Inj 2 MG/ML Vial IV.PUSH ONE (14:00)
--- NOTE | 2018-08-25 16:12 | P.PNWCN ---
Wound Care Nurse Consult Description: Wound care consulted for wound vac management to the left axillary region by Corinne SALAS. Communicated with: Spoke with bedside nurse Yohana MAJOR. Recommendation: Please reinforce dressing with VAC drape if leaking, if still leaking and wound VAC is not suctioning, please remove dressing which includes 2 pieces of foam and xeroform dressing to wound bed and place a normal saline moistened gauze packed loosely to wound and and cover with dry gauze, ABD pad and rolled gauze. Change daily and PRN as needed if saturated or dislodged until wound care can reapply wound VAC dressing. Wound care nurse will be changing dressing every Wednesday and . Additional information: Patient seen today in [facility] by wound care. Patient premedicated for pain prior. Patient positioned in bed laying flat with left arm above head. Previous dressing removed which included 1 piece of white foam and 1 piece of black foam. Lastly removed 1 piece of xeroform gauze.Wound care nurse then applied Cavilon skin barrier spray to eneida wound and bridge site. Jordan seal applied to the eneida wound. Wound vac drape applied to the eneida wound then to the bridge site. 1 piece of white foam applied to undermined area, one piece of xeroform gauze applied to wound bed then one piece of black foam applied to the wound bed. Wound vac then bridged to the left anterior upper arm avoiding access site for dialysis. Wound vac placed on continuous suction set at 75mmHg. Serous drainage noted and seal intact. Dressing was then secured with rolled gauze and elastic wrap to the wrist. Recommendations given to bedside nurse. Wound/Pressure Injury - Patient Status Premedicated for Pain Prior to Dressing Change: Yes (By bedside nurse) - Wound Left Axilla Wound Assessment: Ongoing Wound Type: Traumatic Wound Requested from Provider a Wound Care Consult: Yes (Patient seen today by wound care nurse. ) Wound Bed Appearance: Red, White Wound Bed Appearance: ~80% red tissue and ~20% white tissue Surrounding Tissue Appearance: Blanched/Dull Surrounding Tissue Temperature: Warm Drainage Description: Serous Drainage Amount: Copious Drainage Odor: No Odor Dressing Status: Changed Cleansing Solution: Saline Wound Packing Type: Woundvac Sponge (1 piece of xeroform gauze, 1 piece of white foam and 1 piece of black foam.) Primary Dressing: Negative Pressure Wound Dressing Wound Dressing Change Date: 08/25/18 Wound Margin Description: Wound margins are unattached and well defined. Wound Vac - Wound Vac Left Axilla Pressure Setting (mmHg): 75 Mode Setting: Continuous Drainage Description: Serous Foam type: Other (1 piece of white and 1 piece of black foam)
[2018-08-26] MEDS: Insulin Detemir Inj 1,000 UNIT/10 ML Vial SQ SCH (06:26)
--- NOTE | 2018-08-26 08:51 | P.PNVS ---
Subjective Subjective/Hospital Course: pt seen this am Pt eating breakfast awaiting Hemodialysis Pt s/p VAC application to his L UE L UE w/ improved swelling Objective Vital Signs / I&O: Vital Signs 08/25/18 09:00 08/25/18 09:46 08/25/18 10:00 Temperature Pulse Rate 70 68 Respiratory Rate Blood Pressure Pulse Oximetry 96 08/25/18 11:00 08/25/18 12:00 08/25/18 13:00 Temperature 97.2 F L Pulse Rate 70 72 68 Respiratory Rate 17 Blood Pressure 141/80 H Pulse Oximetry 94 L 08/25/18 14:00 08/25/18 15:00 08/25/18 16:00 Temperature Pulse Rate 66 67 66 Respiratory Rate Blood Pressure Pulse Oximetry 08/25/18 16:37 08/25/18 17:00 08/25/18 18:00 Temperature 99.8 F H Pulse Rate 67 66 68 Respiratory Rate 17 Blood Pressure 137/82 Pulse Oximetry 94 L 08/25/18 19:00 08/25/18 20:00 08/25/18 21:00 Temperature 99.0 F Pulse Rate 67 68 62 Respiratory Rate 18 Blood Pressure 159/94 H Pulse Oximetry 95 08/25/18 22:00 08/25/18 23:00 08/26/18 00:00 Temperature 98.3 F Pulse Rate 60 67 70 Respiratory Rate 16 Blood Pressure 149/78 H Pulse Oximetry 98 08/26/18 01:00 08/26/18 02:00 08/26/18 03:00 Temperature Pulse Rate 69 65 64 Respiratory Rate Blood Pressure Pulse Oximetry 08/26/18 04:00 08/26/18 05:00 08/26/18 06:00 Temperature 98.0 F Pulse Rate 70 69 68 Respiratory Rate 16 Blood Pressure 131/70 Pulse Oximetry 94 L 08/26/18 07:00 Temperature Pulse Rate 64 Respiratory Rate Blood Pressure Pulse Oximetry Intake & Output 08/25/18 08/26/18 08/26/18 18:59 06:59 18:59 Intake Total 480 / 480 480 / 480 Output Total 825 / 825 725 / 725 Balance -345 / -345 -245 / -245 Weight 71.5 kg Intake: Oral 480 / 480 480 / 480 Output: Urine 325 / 325 725 / 725 Wound Vac Amount 500 / 500 Left Axilla Surgical wound 500 / 500 Other: Mode Setting Left Axilla Continuous Continuous Left Axilla Surgical wound Continuous Continuous Left Upper Arm Continuous Date of Last Bowel Movement 08/25/18 08/25/18 # Bowel Movements 1 Physical Exam: + thrill to L AVF No hand pain Improved L UE swelling L UE (axillary region) w/ wound vac intact Laboratory Results - last 24 hr 08/25/18 08/25/18 08/25/18 12:18 12:19 16:43 POC Glucose 336 H 282 H 146 H 08/25/18 08/26/18 20:18 07:50 POC Glucose 328 H 185 H Assessment and Plan - Assessment (1) Left arm swelling Code(s): M79.89 - Other specified soft tissue disorders Status: Chronic (2) Seroma after procedure Status: Acute - Plan L axillary seroma, now s/p VAC Plan Pt clear for D/C w/ Home Health (wound vac therapy) Pt will f/u with plastic surgery for VAC/wound progress Corinne Meadows NP [facility] [phone] Discharge Planning: Today w/ [facility] for wound vac therapy post HD
--- NOTE | 2018-08-26 09:00 | P.DS ---
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 Pt s/p LEFT brach-ax on 03/07/18, after a failed L UE brachiobasilic AVF that was created on 01/12/18 that occluded and was then ligated. Pt recently underwent a Left axillary seromadrainage and excision of perianastomotic capsule on 07/28/18. Pt returned to clinic w/ a complaint of a recurrent L axillary seroma w/ pain. Pt w/ a complex LEFT axillary seroma that was drained at the BS. Pt returnedfor follow up c/o recurrent draining seroma to his LEFT axillary region and underwent a L UE Fistulogram/axillary vein stent /Seroma evacuation on 08/09/18. Pt s/p LEFT brach-ax on 03/07/18, after a failed L UE brachiobasilic AVF that was created on 01/12/18 that occluded and was then ligated. Pt underwent a LEFT upper extremity fistulogram w/ percutaneous transluminal angioplasty of central vein on 07/05/18. Pt also presented with a recurrent axillary seroma that has been draining clear fluid for the past several weeks that was drained on 07/12/18. Pt underwent a Left axillary seromadrainage and excision of perianastomotic capsule on 07/28/18 Pt underwent a L UE Fistulogram/axillary vein stent/Seroma evacuation on . Procedure: Wound vac Significant Findings: Abnormal Lab Results 08/25/18 08/25/18 08/25/18 12:18 12:19 16:43 POC Glucose 336 H 282 H 146 H 08/25/18 08/26/18 20:18 07:50 POC Glucose 328 H 185 H Hospital Course: a 57/M with a PMH of ESRD on HD every M/W/F (LEFT brach-ax /) Pt s/p L UE Fistulogram/axillary vein stent/Seroma evacuation on 08/09/18. Pt w/ continued drainage from his L axillary region and now has a separation at the proximal to mid section of his LEFT axillary incision Pt s/p L axillary seroma, now s/p VAC; appreciate plastics assistance Pt doing well and is cleared for d/c post HD Pt to follow up w/ Plastics surgery for VAC/wound progress in 1-2 W Will have pt RTC in 2W - Discharge Instructions Any questions or concerns: Call [facility] Surgery at [facility] [phone] Discharge Plan - Discharge Disposition Patient Disposition: Discharge Home - Discharge Condition Condition: Good - Discharge Order Discharge Orders: Discharge Order (Routine); Ordered 08/26/18 Ordered By: Corinne Meadows - Physicians Team Primary Care Provider: Primary Care Letty Miller Attending Provider: Alli Sauceda Other Providers: Chito Pereira MD ; Alvaro Whitaker MD ; Hemanth Saxena - Rxs /Orders / Referrals /Forms Prescriptions: New oxycodone-acetaminophen [Percocet] 5-325 mg Tablet 1 tab PO Q4-6H PRN (Reason: Pain) Qty: 20 RF: 0 Continue amlodipine 10 mg Tablet 10 mg PO DAILY atorvastatin [Lipitor] 20 mg Tablet 40 mg PO DAILY baclofen 10 mg Tablet 10 mg PO DAILY PRN (Reason: Cramps) cholecalciferol (vitamin D3) 400 unit Tablet 400 unit PO DAILY fluticasone [Flonase Allergy Relief] 50 mcg/actuation [place],Suspension 1 spray INTRANASAL DAILY furosemide [Lasix] 20 mg Tablet 20 mg PO DAILY hydralazine 10 mg Tablet 10 mg PO TID insulin glargine [Lantus U-100 Insulin] 100 unit/mL Solution 20 unit SUB-Q DAILY insulin lispro [Humalog U-100 Insulin] 100 unit/mL Solution See Protocol subcut BID levothyroxine 25 mcg Capsule 25 mcg PO DAILY magnesium gluconate 27.5 mg (500 mg) Tablet 500 mg PO DAILY metoprolol succinate 100 mg Tablet Extended Release 24 Hr 100 mg PO DAILY mycophenolate mofetil [CellCept] 250 mg Capsule 500 mg PO DAILY ondansetron HCl [Zofran] 4 mg Tablet 4 mg PO Q6-8H PRN (Reason: Nausea) oxycodone-acetaminophen [Percocet] 5-325 mg Tablet 1 tab PO Q4-6H PRN (Reason: Pain) Qty: 20 RF: 0 pantoprazole [Protonix] 40 mg Tablet,Delayed Release (Dr/Ec) 40 mg PO DAILY prednisone 10 mg Tablet 20 mg PO DAILY sodium bicarbonate 325 mg Tablet 650 mg PO BID tacrolimus 5 mg Capsule 1 mg PO BID valganciclovir 450 mg Tablet 450 mg PO DAILY vitamin B complex [B-Complex] Tablet 1 tab PO DAILY Referrals: Alvaro Whitaker MD [PLASTIC & RECONSTRUCTIVE SURGE] - See Instructions (F/U in 1W ) Primary Care Letty Miller [Primary Care Provider] - See Instructions Alli Sauceda MD [Physician] - See Instructions (Follow-up appointment 09/23 at 1115a) - Post Discharge Care Plan Care Plan Goals: Discharge Care Plan Goals After Vascular Surgery Contact: Please call [phone] if you have any problems or have questions regarding your hospitalization. Directions to Meet Your Goals: 1. Diet: * You may resume a regular diet as you were eating at home before your admission. 2. Activity: * Increase your activity level gradually. * Keep surgical extremities elevated when at rest. This will help limit the swelling, bruising and discomfort normally present after surgery. * Walking is a good form of light exercise. Go for a walk at least 3 times per day. * No heavy lifting (lifting over 10 pounds) for at least 4 weeks from surgery. * Check with your surgeon to ensure when you are cleared for heavy lifting and full-intensity exercising. * Your strength will gradually improve. * No driving or operating motorized vehicles while on prescription pain medications. * No swimming until wounds fully healed. * Return to work when cleared by MD/PA/[employer]. 3. Bathing: Shower daily. * Gently let soap and water run over your incision and pat dry. Do not scrub the incision/wound. * Don't soak in a bath or submerge your incision in water until your incision is healed and evaluated by your physician at follow-up (usually two weeks). 4. Wound Care: INCISION SITE CARE INSTRUCTIONS: * You may leave your incision open to air. * Keep your incision clean and dry, unless showering. See above. * Moisture near the incision will cause the wound to open. * No lotions, creams, ointments, or powders on incisions until they are well- healed. * If you have glue over the incision(s), allow it to fall off naturally in 1-3 weeks * If present, fabian/sutures will be removed 2-3 weeks after surgery during your follow-up clinic visit. * If present, change dressing/bandage when soaked/soiled as needed. * Observe wound daily, checking for signs and symptoms of infection including: foul odor, drainage from the incision, increased redness, increased pain at incision, or increased swelling. 5. Pain Control: Expect post-operative pain for 1-4 weeks after surgery. Your pain will improve gradually. * You may have been provided with a prescription for pain medication. Please take as directed, and be aware of side effects such as drowsiness, constipation and mild stomach discomfort. Pain pills on an empty stomach can cause nausea , so eat a small amount of food, such as crackers, when taking these pills. * Take gohx-mqd-jmuetyf stool softeners (Colace or Senna) with your prescribed pain medication. * Acetaminophen (500mg every 6 hours) or Ibuprofen (400mg every 6 hours) may be used in conjunction with narcotics to relieve pain. DO NOT take more than 4 grams (4000mg) of Tylenol in one day, as this can harm your liver. DO NOT take ibuprofen IF: you have an allergy to non-steroidal anti-inflammatory medications, you are taking Coumadin, you have been told you have kidney problems, or you have a history of gastrointestinal bleeding or ulcers. DO NOT take more than 3.2 grams (3200mg) of ibuprofen in one day. * You may also find relief from using heat packs or pads or ice packs. 6. Bowel Regimen for Constipation: * People who undergo surgery are likely to develop post-operative constipation. Exposure to narcotics and changes in diet, fluid intake, and physical activity are known contributors to constipation. We recommend routine stool softeners and/ or laxatives after surgery for most patients. Start by taking one medication. You can increase as directed to relieve constipation. Stop taking these medications if you develop diarrhea. These medications are available over-the- counter and do not require a prescription: * Colace is a stool softener. We recommend starting at 100mg orally twice per day as needed for soft stools and increase to a maximum of 200mg twice daily as needed. * Senna is a laxative that works by keeping water in the intestine to help stool move along the intestinal tract. Take 1 tablet daily as needed for soft stool and increase to a maximum of 2 tablets twice daily as needed. Take Senna with two full glasses of water each time. * Miralax, Dulcolax and Milk of Magnesia are other gkvv-qog-tjepwur laxatives that may be used as needed for post-operative constipation. * Drink 6-8 glasses of water per day. * Consume 15-30g of fiber per day: * Metamucil powder, 1-2 tablespoons 1-2 times/day OR Benefiber powder, 2 tablespoons 4 times/day. * Avoid straining. 7. Follow-Up: Do Not miss your follow-up appointment. Keep up with all your appointments and yearly check ups If you have any of the following symptoms please call [phone] immediately: Excessive swelling of the affected extremity Sudden onset of severe or unusual pain in the affected extremity Pain that gets worse or is not relieved by medication Warmth, redness, or swelling in the skin around the wound Foul drainage from incision Extensive bruising or discoloration Wound that opens up or pulls apart Fever above 101.5F or shaking chills Nausea or vomiting Severe diarrhea or severe constipation Dizziness or fainting Chest pain, shortness of breath, or increased work of breathing Weight gain >10 lbs over 3-4 days Inability to urinate for more than 6 hours Cloudy or foul smelling urine Urge to urinate more often than usual Symptoms to Report to Your Doctor: Temperature 101F or higher Pain uncontrolled by medication Drainage or foul odor from incision Extensive bruising or discoloration Chest pain Shortness of breath Nausea, vomiting or dizziness Call 911: Call 911 right away if you have: Sudden onset of chest pain that is not relieved by medications Shortness of breath
--- NOTE | 2018-08-26 09:15 | P.DCO ---
- Home Health Nursing Order: Wound care and dressing changes Instructions: Wound care for wound management and wound vac placement to the left axillary region Wound Left Axilla Surgical wound Wound Assessment: Ongoing Wound Type: Traumatic Wound Requested from Provider a Wound Care Consult: Yes (Patient seen today by wound care nurse) Length (cm): 6 Width (cm): 2.5 Depth (cm): 1 (~1 cm) Wound Bed Appearance: Red, Tunneling/Undermining (Undermining noted from 11 to 1 o'clock and 4 to 9 o'clock deepest at 8 o'clock ~4 cm), White Wound Bed Appearance: ~ 80% Red tissue and ~20% white tissue Surrounding Tissue Appearance: Blanched/Dull Surrounding Tissue Temperature: Warm Drainage Description: Serous Drainage Amount: Copious Drainage Odor: No Odor Dressing Status: Changed Cleansing Solution: Saline Wound Packing Type: Woundvac Sponge (Xeroform gauze, 1 piece of white wound vac foam the 1 piece of black foam) Primary Dressing: Negative Pressure Wound Dressing Wound Dressing Change Date: 08/23/18 Wound Margin Description: Margins are unattached and well defined Apply Xeroform to undermining area at the 11 to 1 o'clock site which includes graft site. Apply white foam to undermined area to the 4 to 9 o'clock site. Apply Cavilon skin barrier spray to eneida wound and bridge site. Apply Jordan seal to the eneida wound. Apply Wound vac drape to the eneida wound then to the bridge site. 1 piece of black foam applied to the wound bed. Wound vac then bridged to the left anterior upper arm avoiding access site for dialysis. Wound vac settings - continuous suction set at 75mmHg. Secure Dressing with rolled gauze and elastic wrap. Wound care nurse will be changing dressing every Wednesday and until therapy is completed - Case Management Consult Case Management Consult-Home Health: Yes - Certification I have seen patient Alli Gabriel on 08/26/18. My clinical findings support the need for the requested home health care services because: Limited mobility due to disease progression I certify that my clinical findings support that this patient is homebound because: pt is medically cleared for d/c Need for psychosocial assistance
[2018-08-26] MEDS: Insulin NovoLOG Aspart Correctional Sugar Inj SQ SCH ×4 (09:17→20:25)
--- NOTE | 2018-08-26 10:26 | P.PNNP ---
Subjective Interval history: Dressing left arm edema improved Physical Exam Vital signs: Vital Signs 08/25/18 11:00 08/25/18 12:00 08/25/18 13:00 Temperature 97.2 F L Pulse Rate 70 72 68 Respiratory Rate 17 Blood Pressure 141/80 H Pulse Oximetry 94 L 08/25/18 14:00 08/25/18 15:00 08/25/18 16:00 Temperature Pulse Rate 66 67 66 Respiratory Rate Blood Pressure Pulse Oximetry 08/25/18 16:37 08/25/18 17:00 08/25/18 18:00 Temperature 99.8 F H Pulse Rate 67 66 68 Respiratory Rate 17 Blood Pressure 137/82 Pulse Oximetry 94 L 08/25/18 19:00 08/25/18 20:00 08/25/18 21:00 Temperature 99.0 F Pulse Rate 67 68 62 Respiratory Rate 18 Blood Pressure 159/94 H Pulse Oximetry 95 08/25/18 22:00 08/25/18 23:00 08/26/18 00:00 Temperature 98.3 F Pulse Rate 60 67 70 Respiratory Rate 16 Blood Pressure 149/78 H Pulse Oximetry 98 08/26/18 01:00 08/26/18 02:00 08/26/18 03:00 Temperature Pulse Rate 69 65 64 Respiratory Rate Blood Pressure Pulse Oximetry 08/26/18 04:00 08/26/18 05:00 08/26/18 06:00 Temperature 98.0 F Pulse Rate 70 69 68 Respiratory Rate 16 Blood Pressure 131/70 Pulse Oximetry 94 L 08/26/18 07:00 Temperature Pulse Rate 64 Respiratory Rate Blood Pressure Pulse Oximetry Intake & Output 08/25/18 08/26/18 08/26/18 18:59 06:59 18:59 Intake Total 480 / 480 480 / 480 Output Total 825 / 825 725 / 725 Balance -345 / -345 -245 / -245 Weight 71.5 kg Intake: Oral 480 / 480 480 / 480 Output: Urine 325 / 325 725 / 725 Wound Vac Amount 500 / 500 Left Axilla Surgical wound 500 / 500 Other: Mode Setting Left Axilla Continuous Continuous Left Axilla Surgical wound Continuous Continuous Left Upper Arm Continuous Date of Last Bowel Movement 08/25/18 08/25/18 # Bowel Movements 1 Narrative: GENERAL: Well-nourished, well-developed patient. SKIN: Warm and dry. HEAD: Normocephalic. EYES: No scleral icterus. No injection or drainage. NECK: Supple, trachea midline. No JVD or lymphadenopathy. CARDIOVASCULAR: Regular rate and rhythm without murmurs, gallops, or rubs. RESPIRATORY: Breath sounds equal bilaterally. No accessory muscle use. GASTROINTESTINAL: Abdomen soft, non-tender, nondistended. EXTREMITIES: Left arm swollen NEUROLOGICAL: Awake, alert, and oriented x 3. Non-focal. Assessment and Plan - Assessment (1) ESRD (end stage renal disease) on dialysis Code(s): N18.6 - End stage renal disease; Z99.2 - Dependence on renal dialysis Status: Chronic Plan: Hemodialysis will be planned for Wednesday, Wednesday and Wednesday continue supportive care Patient examined during hemodialysis Seen during dialysis tolerating it well 2K bath ultrafiltration 2 L AV fistula been followed by vascular surgery, wound care plastic surgery advised VAC dressing He has seroma Left arm swelling wrapped in Renato bandage Next dialysis Wednesday Okay to discharge from nephrology point of view (2) Left arm swelling Code(s): M79.89 - Other specified soft tissue disorders Status: Chronic Plan: Plans per vascular, plastic surgery wound care following as there is a hole just not healing (3) Seroma after procedure Status: Acute Plan: Plastic surgery consulted (4) Type 2 diabetes mellitus Code(s): E11.9 - Type 2 diabetes mellitus without complications Status: Chronic Plan: Maintain blood sugar in the 140-180 range (5) Hypertension Code(s): I10 - Essential (primary) hypertension Status: Chronic Plan: Maintain blood pressure 122 140 systolic and diastolic 70-80
[2018-08-26 10:45] VITALS: RESP 18
[2018-08-26] MEDS: hydrALAZINE 25 MG Tablet PO SCH ×3 (12:29→17:18)
[2018-08-26] MEDS: Senna/Docusate Sodium 8.6/50 MG Tablet PO SCH ×2 (12:50→20:16)
[2018-08-26] MEDS: predniSONE 5 MG Tablet PO SCH (12:52)
[2018-08-26] MEDS: amLODIPine 10 MG Tablet PO SCH (12:52)
[2018-08-27] MEDS: Insulin Detemir Inj 1,000 UNIT/10 ML Vial SQ SCH (06:03)
[2018-08-27] MEDS: Insulin NovoLOG Aspart Correctional Sugar Inj SQ SCH ×3 (08:38→17:27)
[2018-08-27] MEDS: hydrALAZINE 25 MG Tablet PO SCH ×3 (08:40→17:27)
[2018-08-27] MEDS: predniSONE 5 MG Tablet PO SCH (08:40)
[2018-08-27] MEDS: Senna/Docusate Sodium 8.6/50 MG Tablet PO SCH (08:40)
[2018-08-27] MEDS: amLODIPine 10 MG Tablet PO SCH (08:41)
--- NOTE | 2018-08-27 09:11 | P.PNVS ---
Subjective Subjective/Hospital Course: pt doing well, no issues was discharged yesterday but home vac ordered still not ready stable for discharge since yesterday Objective Vital Signs / I&O: Vital Signs 08/26/18 10:00 08/26/18 11:00 08/26/18 12:00 Temperature Pulse Rate 64 63 62 Respiratory Rate Blood Pressure Pulse Oximetry 08/26/18 13:00 08/26/18 14:00 08/26/18 15:00 Temperature Pulse Rate 72 72 73 Respiratory Rate Blood Pressure Pulse Oximetry 08/26/18 16:00 08/26/18 17:00 08/26/18 18:00 Temperature 99.0 F Pulse Rate 72 68 73 Respiratory Rate 18 Blood Pressure 132/70 Pulse Oximetry 92 L 08/26/18 18:40 08/26/18 19:00 08/26/18 20:00 Temperature 98.8 F Pulse Rate 70 69 Respiratory Rate 18 Blood Pressure 146/77 H Pulse Oximetry 93 L 95 08/26/18 21:00 08/26/18 21:55 08/26/18 22:00 Temperature Pulse Rate 73 75 Respiratory Rate Blood Pressure Pulse Oximetry 95 08/26/18 23:00 08/27/18 00:00 08/27/18 01:00 Temperature 98.3 F Pulse Rate 69 66 65 Respiratory Rate 18 Blood Pressure 136/85 Pulse Oximetry 96 08/27/18 02:00 08/27/18 03:00 08/27/18 03:57 Temperature 98.6 F Pulse Rate 66 64 70 Respiratory Rate 18 Blood Pressure 139/81 Pulse Oximetry 97 08/27/18 04:00 08/27/18 04:55 08/27/18 05:48 Temperature Pulse Rate 69 67 69 Respiratory Rate Blood Pressure Pulse Oximetry 08/27/18 07:53 Temperature 99.0 F Pulse Rate 66 Respiratory Rate 18 Blood Pressure 145/78 H Pulse Oximetry 94 L Intake & Output 08/26/18 08/27/18 08/27/18 18:59 06:59 18:59 Intake Total 960 / 960 960 / 960 Output Total 2150 / 2150 400 / 400 Balance -1190 / -1190 560 / 560 Weight 70 kg Intake: Oral 960 / 960 960 / 960 Output: Urine 150 / 150 400 / 400 Hemodialysis Amount 1999 Other: Mode Setting Left Axilla Continuous Continuous Left Axilla Surgical wound Continuous Continuous Left Upper Arm Continuous Continuous Date of Last Bowel Movement 08/25/18 # Bowel Movements 0 Physical Exam: left arm edematous vac in place + thrill hand ok Laboratory Results - last 24 hr 08/26/18 08/26/18 08/26/18 11:24 16:45 20:16 POC Glucose 162 H 211 H 236 H 08/27/18 07:51 POC Glucose 155 H Assessment and Plan - Plan L axillary seroma, now s/p VAC Plan Pt clear for D/C w/ Home Health (wound vac therapy) Pt will f/u with plastic surgery for VAC/wound progress pt doesn't need to be inpatient presently discussed with covering dependency case manager Discharge Planning: Today w/ [facility] for wound vac therapy post HD
--- NOTE | 2018-08-27 10:12 | P.PNNP ---
Subjective Interval history: No new issues. Notes were reviewed. Had dialysis yesterday. Physical Exam Vital signs: Vital Signs 08/26/18 11:00 08/26/18 12:00 08/26/18 13:00 Temperature Pulse Rate 63 62 72 Respiratory Rate Blood Pressure Pulse Oximetry 08/26/18 14:00 08/26/18 15:00 08/26/18 16:00 Temperature 99.0 F Pulse Rate 72 73 72 Respiratory Rate 18 Blood Pressure 132/70 Pulse Oximetry 92 L 08/26/18 17:00 08/26/18 18:00 08/26/18 18:40 Temperature Pulse Rate 68 73 Respiratory Rate Blood Pressure Pulse Oximetry 93 L 08/26/18 19:00 08/26/18 20:00 08/26/18 21:00 Temperature 98.8 F Pulse Rate 70 69 73 Respiratory Rate 18 Blood Pressure 146/77 H Pulse Oximetry 95 08/26/18 21:55 08/26/18 22:00 08/26/18 23:00 Temperature Pulse Rate 75 69 Respiratory Rate Blood Pressure Pulse Oximetry 95 08/27/18 00:00 08/27/18 01:00 08/27/18 02:00 Temperature 98.3 F Pulse Rate 66 65 66 Respiratory Rate 18 Blood Pressure 136/85 Pulse Oximetry 96 08/27/18 03:00 08/27/18 03:57 08/27/18 04:00 Temperature 98.6 F Pulse Rate 64 70 69 Respiratory Rate 18 Blood Pressure 139/81 Pulse Oximetry 97 08/27/18 04:55 08/27/18 05:48 08/27/18 07:53 Temperature 99.0 F Pulse Rate 67 69 66 Respiratory Rate 18 Blood Pressure 145/78 H Pulse Oximetry 94 L Intake & Output 08/26/18 08/27/18 08/27/18 18:59 06:59 18:59 Intake Total 960 / 960 960 / 960 Output Total 2150 / 2150 400 / 400 Balance -1190 / -1190 560 / 560 Weight 70 kg Intake: Oral 960 / 960 960 / 960 Output: Urine 150 / 150 400 / 400 Hemodialysis Amount 1999 Other: Mode Setting Left Axilla Continuous Continuous Left Axilla Surgical wound Continuous Continuous Left Upper Arm Continuous Continuous Date of Last Bowel Movement 08/25/18 # Bowel Movements 0 Narrative: GENERAL: Well-nourished, well-developed patient. SKIN: Warm and dry. HEAD: Normocephalic. EYES: No scleral icterus. No injection or drainage. NECK: Supple, trachea midline. No JVD or lymphadenopathy. CARDIOVASCULAR: Regular rate and rhythm without murmurs, gallops, or rubs. RESPIRATORY: Breath sounds equal bilaterally. No accessory muscle use. GASTROINTESTINAL: Abdomen soft, non-tender, nondistended. EXTREMITIES: Left arm swollen NEUROLOGICAL: Awake, alert, and oriented x 3. Non-focal. Assessment and Plan - Assessment (1) ESRD (end stage renal disease) on dialysis Code(s): N18.6 - End stage renal disease; Z99.2 - Dependence on renal dialysis Status: Chronic Plan: Hemodialysis will be planned for Wednesday, Wednesday and Wednesday continue supportive care Patient examined during hemodialysis Seen during dialysis tolerating it well 2K bath ultrafiltration 2 L AV fistula been followed by vascular surgery, wound care plastic surgery advised VAC dressing He has seroma Left arm swelling wrapped in Renato bandage Next dialysis Wednesday Okay to discharge from nephrology point of view (2) Left arm swelling Code(s): M79.89 - Other specified soft tissue disorders Status: Chronic Plan: Plans per vascular, plastic surgery wound care following as there is a hole just not healing (3) Seroma after procedure Status: Acute Plan: Plastic surgery consulted (4) Type 2 diabetes mellitus Code(s): E11.9 - Type 2 diabetes mellitus without complications Status: Chronic Plan: Maintain blood sugar in the 140-180 range (5) Hypertension Code(s): I10 - Essential (primary) hypertension Status: Chronic Plan: Maintain blood pressure 122 140 systolic and diastolic 70-80
[2018-08-27 16:45] VITALS: BP 120/58; TEMP 97.7; O2SAT 94
[2018-08-27 19:14] VITALS: PULSE 60
== END 2018-08-27 19:15 | disposition home or self-care (01) | DRG 919 ==
LOC: HCIS 13:30
PROVIDERS: ADMIT Surgery; ATTEND Surgery
CPT/HCPCS: 76937; 80048; 82948; 82962; 85027; 90774; 90784; 90935; 96374; 97166; C8952; J0886; J1815; J2060; J2270; J7506; J7507; J7512; J7517; Q4055; Q4081